=== PATIENT | male | born 1955 | race Caucasian/White ===

== ENCOUNTER 2022-01-30 01:53 | Emergency (ER) | payer MEDICARE, BC, SELFPAY ==
[2022-01-30 02:06] VITALS: BP 127/74; PULSE 68; TEMP 36.6; O2SAT 97
--- NOTE | 2022-01-31 16:05 | ED_ITS ---
HPI - Neck Pain/Injury General Chief Complaint: Shoulder Injury/Pain Stated Complaint: Pain in LT shoulder Time Seen by Provider: 01/30/22 02:36 History of Present Illness HPI Narrative: 66-year-old man presenting to the emergency department with complaint of ?can't take (the) pain?. Pain seems in particular in the left shoulder and then radiates all the way down his arm. He is numb in the tips of his fingers, all of them. He describes pain across his trapezius or upper back also then into his right fingers. At rest there is a general numbness and moving of the neck exacerbate symptoms. History he describes as 1 day had what sounds like an olecranon bursitis on the left elbow. Was placed in some compression and then subsequently he has developed this radiating pain. He has noted weakness in his left arm. He does take low-dose nightly gabapentin. He did take oxycodone tonight 5 mg and admits that he did go to sleep. He is frustrated with opiates as the just make him tired. He does not want to take them. He actually is hoping for some prednisone. Has an MRI coming up after the weekend. He says in the past prednisone has helped him somewhat. Does have what sounds like diabetic neuropathy also with some numb feet. Is anticoagulated with Coumadin and some not taking NSAIDs other than acetaminophen which says does nothing. He can obtain some relief if his neck is extended and tilted to the right a little bit. Seems overly started around the 11 of January of this year. Related Data Home Medications Medication Instructions Recorded Confirmed amlodipine 10 mg tablet 10 mg PO DAILY 01/13/22 01/30/22 atorvastatin 40 mg tablet 40 mg PO HS 01/13/22 01/30/22 cyclobenzaprine 10 mg tablet 10 mg PO PRN 01/13/22 01/13/22 fluticasone fur. 100 mcg-umeclid 1 inh inhalation DAILY 01/13/22 01/30/22 62.5 mcg-vilant 25 mcg inhalat.powder (Trelegy Ellipta) gabapentin 600 mg tablet 600 mg PO HS 01/13/22 01/30/22 glipizide 10 mg tablet, extended 10 mg PO DAILY 01/13/22 01/30/22 release 24 hr losartan 100 mg tablet 100 mg PO DAILY 01/13/22 01/30/22 metformin 1,000 mg tablet 1,000 mg PO BID 01/13/22 01/30/22 metoprolol succinate 100 mg 100 mg PO DAILY 01/13/22 01/30/22 tablet,extended release 24 hr tamsulosin 0.4 mg capsule 0.4 mg PO DAILY 01/13/22 01/30/22 warfarin 7.5 mg tablet 7.5 mg PO .COMPLEX 01/13/22 01/30/22 Allergies Allergy/AdvReac Type Severity Reaction Status Date / Time No Known Drug Allergies Allergy Verified 01/30/22 02:16 Review of Systems Status of ROS: Reports: 6 or more systems reviewed and unremarkable except as noted in History and below PFS PFS Social History Smoking Status: Former smoker How often do you have a drink containing alcohol: never How often do you have six or more drinks on one occasion: Never AUDIT-C Alcohol total score: 0 Non-prescribed substance use: denies use Exam Narrative: Exam Narrative: Pleasant. In his pajama bottoms. Clearly frustrated. Subjective reproduction of his symptoms with rotational movement of his neck. Subjective sensory loss generally in his left arm. Otherwise appears to be moving all extremities without difficulty. Good perfusion peripherally. Breathing easily. Cranial nerves 2-12 intact. Sore to palpation across the trapezial musculature left greater than right. No midline neck tenderness. Const: Documenting provider has reviewed patient's vital signs: yes Course Vital Signs Vital signs: Initial Vital Signs Temperature 97.9 F 01/30/22 02:06 Temperature Source Temporal Artery Scan 01/30/22 02:06 Pulse Rate 68 01/30/22 02:06 Blood Pressure 127/74 01/30/22 02:06 Blood Pressure Mean 91 01/30/22 02:06 Blood Pressure Position Sitting 01/30/22 02:06 Pulse Oximetry 97 01/30/22 02:06 Oxygen Delivery Method 01/30/22 02:06 Vital Signs Temperature 97.9 F 01/30/22 02:06 Pulse Rate 68 01/30/22 02:06 Blood Pressure 127/74 01/30/22 02:06 Pulse Oximetry 97 01/30/22 02:06 Oxygen Delivery Method 01/30/22 02:06 Temperature 97.9 F 01/30/22 02:06 Pulse Rate 68 01/30/22 02:06 Blood Pressure 127/74 01/30/22 02:06 Pulse Oximetry 97 01/30/22 02:06 Oxygen Delivery Method 01/30/22 02:06 MDM - Neck Pain/Injury MDM Narrative Medical decision making narrative: It sounds as though opiates to help him obtain what he is looking for, that is sleep. I can appreciate is a version however 2 opiates. Imaging pending shortly as outpatient. Discharge Plan Discharge Clinical Impression: Cervical radiculitis Patient Disposition: Home w/ Parent or Adult Condition: Stable Additional Instructions: Take the prednisone as 60 mg daily for 3 days, then 20 mg daily for 4 days. You are aware that it can raise your blood sugars. You might try taking half a tablet of your oxycodone in the future to take some of the more intense edge off. Perhaps a little rn clinical review opiate is the [place] that I am prescribing tonight. Any time you taking opiates consider taking a senna-containing product that day to keep the bowels moving. I know you do not like the way they make you feel, but you are here looking for help with sleep and you only took 1 tab of somewhat old oxycodone and managed to sleep which indicates to me that it relieved enough pain. Prescriptions: No Action Trelegy Ellipta 100-62.5-25 mcg blister with device 1 inh inhalation DAILY Label Comments: Inhale 1 Puff by mouth once daily. tamsulosin 0.4 mg capsule 0.4 mg PO DAILY metoprolol succinate 100 mg tablet extended release 24 hr 100 mg PO DAILY warfarin 7.5 mg tablet 7.5 mg PO .COMPLEX Label Comments: TAKE 1/2 TABLET BY MOUTH EVERY MONDAY AND MONDAY AND TAKE 1 TABLET ON ALL OTHER DAYS OR DIRECTED. Rx Instructions: 7.5 mg orally See patient comments; losartan 100 mg tablet 100 mg PO DAILY Label Comments: TAKE ONE TABLET BY MOUTH DAILY metformin 1,000 mg tablet 1,000 mg PO BID Label Comments: TAKE ONE TABLET BY MOUTH TWICE DAILY WITH MEALS amlodipine 10 mg tablet 10 mg PO DAILY Label Comments: TAKE ONE TABLET BY MOUTH DAILY glipizide 10 mg tablet extended release 24hr 10 mg PO DAILY Label Comments: TAKE ONE TABLET BY MOUTH ONCE DAILY BEFORE A MEAL atorvastatin 40 mg tablet 40 mg PO HS Label Comments: TAKE ONE TABLET BY MOUTH AT BEDTIME gabapentin 600 mg tablet 600 mg PO HS Label Comments: TAKE ONE TABLET BY MOUTH AT BEDTIME cyclobenzaprine 10 mg tablet 10 mg PO PRN Label Comments: TAKE 1 TABLET BY MOUTH AT BEDTIME NEEDED FOR MUSCLE SPASMS. MAY TAKE UP TO 3 TIMES DAILY NEEDED. Follow Up/Referrals: Arya Stone MD [Primary Care Provider] - Stand Alone Forms: [facility] Info Instructions
== END 2022-01-30 03:29 | disposition home or self-care (01) ==
LOC: ED 03:11
PROVIDERS: Emergency Provider Family Medicine; PCP Family Medicine
DX: M54.2 Cervicalgia (principal)
CPT/HCPCS: 99282; 99283

== ENCOUNTER 2022-06-07 10:38 | Outpatient (CLI) | payer MEDICARE, BC, SELFPAY ==
--- NOTE | 2022-06-07 11:00 | CRLHL7_ITS ---
For Patients: As a result of the Century Cures Act, medical imaging exams and procedure reports are released immediately into your electronic medical record. You may view this report before your referring provider. If you have questions, please contact your health care provider. Indication: DYSPNEA on exertion Technique: Routine noncontrast CT chest Please note that all CT scans at this facility use dose modulation, iterative reconstruction, and/or weight-based dosing when appropriate to reduce radiation dose to as low as reasonably achievable. Comparison: 06/06/2020 Findings: Finger ground-glass density has developed within the left upper lobe at the posterior lateral aspect. No congestive heart failure. No pleural effusion. Faint ground-glass densities have also developed within the right upper lobe inferiorly. Dense coronary artery calcifications are present. Dense mitral annular calcifications also noted. The upper abdomen is unremarkable. No aortic aneurysm. No hiatal hernia. Stable subcentimeter mediastinal lymph nodes. Old right-sided rib fractures. No acute fracture. Postop changes to the right shoulder. Stable 2 millimeter nodule left lower lobe, . Impression: Faint ground-glass densities within the left upper lobe and right upper lobe suggesting faint infiltrates. No evidence of pulmonary fibrosis or significant air trapping. Extensive calcifications of the coronary arteries. No evidence of CHF. Stable incidental 2 millimeter nodule left lower lobe. Please note that all CT scans at this facility use dose modulation, iterative reconstruction, and/or weight-based dosing when appropriate to reduce radiation dose to as low as reasonably achievable. Dictated by Paul Simons MD @ 06/07/2022 11:54:48 AM (Electronically Signed)
== END 2022-06-07 10:39 | disposition home or self-care (01) ==
LOC: CT 10:39
PROVIDERS: PCP Family Medicine; Visit Provider Internal Medicine Cardiovascular Disease
DX: R06.09 Other forms of dyspnea (principal); I25.10 Atherosclerotic heart disease of native coronary artery without angina pectoris; R91.8 Other nonspecific abnormal finding of lung field
CPT/HCPCS: 71250

== ENCOUNTER 2022-06-21 08:00 | Outpatient (RCR) | payer MEDICARE, BC, SELFPAY | END 2022-08-24 15:52 | disposition home or self-care (01) | PROVIDERS: PCP Family Medicine; Visit Provider Nurse Practitioner Family | DX: M48.02 Spinal stenosis, cervical region (principal); Z51.89 Encounter for other specified aftercare | CPT/HCPCS: 97110; 97112; 97140; 97162 ==

== ENCOUNTER 2022-06-27 21:21 | Emergency (ER) | payer MEDICARE, BC, SELFPAY ==
--- NOTE | 2022-06-27 21:26 | CRLHL7_ITS ---
For Patients: As a result of the Century Cures Act, medical imaging exams and procedure reports are released immediately into your electronic medical record. You may view this report before your referring provider. If you have questions, please contact your health care provider. Indication: Fall Technique: Two views right knee Comparison: None Findings: Bones: Alignment is normal. No fractures or bone lesions. Superior patellar enthesophyte. Joint spaces: Severe degenerative changes of the medial compartment, mild degenerative changes of the lateral and patellofemoral compartments. Soft tissues: Arteriosclerotic calcification. Impression: No acute fracture. Degenerative changes in the knee joint. Dictated by Missy Mitchell MD @ 06/27/2022 10:03:20 PM (Electronically Signed)
--- NOTE | 2022-06-27 21:26 | CRLHL7_ITS ---
For Patients: As a result of the Century Cures Act, medical imaging exams and procedure reports are released immediately into your electronic medical record. You may view this report before your referring provider. If you have questions, please contact your health care provider. Indication: Fall Technique: Three views right ankle Comparison: Nine Findings: Bones: Minimally displaced, obliquely oriented fracture through the distal diaphysis of the right fibula. The medial clear space measure 6.4. Minimally displaced posterior malleolus fracture. Joint spaces: Unremarkable. Soft tissues: Arteriosclerotic calcifications.. Impression: Minimally displaced posterior malleolus fracture. Minimally displaced fracture of the distal diaphysis of the right fibula. Mild widening of the medial clear space concerning for ligamentous injury Dictated by Missy Mitchell MD @ 06/27/2022 10:01:16 PM (Electronically Signed)
[2022-06-27 21:28] VITALS: BP 158/91; PULSE 89; RESP 18; TEMP 36.7; O2SAT 99; BMI 31.3
--- NOTE | 2022-06-27 21:39 | ED_ITS ---
HPI - Extremity Injury (Lower) General Chief Complaint: Extremity Pain/Injury, Lower Stated Complaint: Rt Leg Injury,can't walk on it Time Seen by Provider: 06/27/22 21:37 History of Present Illness HPI Narrative: This 67-year-old male comes in with an injury to his right lower extremity. He fell in the kitchen and states that since then he has not been able to put weight on that right leg. He reports pain in his right ankle and right knee. He has swelling and some bruising in his right ankle. He denies any other injury. He did not hit his head or lose consciousness. Related Data Home Medications Medication Instructions Recorded Confirmed amlodipine 10 mg tablet 10 mg PO DAILY 01/13/22 06/27/22 atorvastatin 40 mg tablet 40 mg PO HS 01/13/22 06/27/22 fluticasone fur. 100 mcg-umeclid 1 inh inhalation DAILY 01/13/22 06/27/22 62.5 mcg-vilant 25 mcg inhalat.powder (Trelegy Ellipta) gabapentin 600 mg tablet 600 mg PO HS 01/13/22 06/27/22 glipizide 10 mg tablet, extended 10 mg PO DAILY 01/13/22 06/27/22 release 24 hr losartan 100 mg tablet 100 mg PO DAILY 01/13/22 06/27/22 metformin 1,000 mg tablet 1,000 mg PO BID 01/13/22 06/27/22 metoprolol succinate 100 mg 100 mg PO DAILY 01/13/22 06/27/22 tablet,extended release 24 hr tamsulosin 0.4 mg capsule 0.4 mg PO DAILY 01/13/22 06/27/22 warfarin 7.5 mg tablet 7.5 mg PO .COMPLEX 01/13/22 06/27/22 albuterol sulfate 90 mcg/actuation 1 - 2 inh inhalation Q6H PRN 06/27/22 06/27/22 aerosol inhaler ipratropium 0.5 mg-albuterol 3 mg 3 ml inhalation Q6H 06/27/22 06/27/22 (2.5 mg base)/3 mL nebulization soln ipratropium 0.5 mg-albuterol 3 mg 3 ml inhalation Q6H PRN 06/27/22 06/27/22 (2.5 mg base)/3 mL nebulization soln Allergies Allergy/AdvReac Type Severity Reaction Status Date / Time No Known Drug Allergies Allergy Verified 01/30/22 02:16 Review of Systems Status of ROS: Reports: 10 or more systems reviewed and unremarkable except as noted in History and below Narrative: Constitutional: No fevers, no weight gain or loss. Eyes: No discharge. No vision changes. HENT: No congestion, no sore throat, no ear pain. Cardiovascular: No chest pain, no palpitations. Respiratory: No shortness of breath, no wheezes, no cough. Gastrointestinal: No abdominal pain, no vomiting, no diarrhea. Genitourinary: No dysuria, no hematuria. Musculoskeletal: Right knee and ankle pain as described above. Skin: No rashes, no pruritis. Neurological: No dizziness, weakness, sensory change, speech change. Endo/Heme/Allergies: No bruising or bleeding. No polydipsia. Pysch: no suicidality, no anxiety, no insomnia. All other systems reviewed and are negative. [facility] Medical History (Updated 06/27/22 @ 22:29 by Robert Mcgill MD) Anticoagulation goal of INR 2 to 3 ASHD (arteriosclerotic heart disease) Bicuspid aortic valve Dyslipidemia Essential (primary) hypertension Hypermetropia Impotence, organic Liver cyst Nonrheumatic aortic (valve) stenosis PAOLO (obstructive sleep apnea) Paroxysmal atrial fibrillation Partial tear of subscapularis tendon Presbyopia Psoriasis Pulmonary emphysema Regular astigmatism Rotator cuff tear Rupture of left long head biceps tendon Stenosis of cervical spine Systolic murmur Type 2 diabetes mellitus Unspecified rotator cuff tear or rupture of left shoulder, not specified as traumatic Social History Smoking Status: Former smoker How often do you have a drink containing alcohol: never How often do you have six or more drinks on one occasion: Never AUDIT-C Alcohol total score: 0 Non-prescribed substance use: denies use Exam Narrative: Exam Narrative: Constitutional: Well-developed, well-nourished, no acute distress. HEENT: Normocephalic, atraumatic. Neck: Normal range of motion. Nontender. Supple. Heart: Intact distal pulses. Lungs: No chest discomfort. No wheezes, rhonchi, or rales. Abdomen: Nontender. Back: Normal range of motion. Extremities: Diffuse pain in the right knee. No joint effusion. No external sign of injury. Right ankle has diffuse swelling with mild bruising. There is tenderness when palpating the medial and lateral malleolus. Skin: Intact. No rash. Warm. No erythema or pallor. Neurologic: No altered sensation. No weakness. Alert and oriented. Psychiatric: No suicidality. No anxiety or depression. No insomnia. Nursing notes and vitals signs are reviewed. Const: Vital Signs, click to edit/add: Vital Signs - 24 hr 06/27/22 21:28 Temperature 98.0 F Pulse Rate [Right Pulse Oximeter] 89 Respiratory Rate 18 Blood Pressure [Ri ght Upper Arm] 158/91 H Pulse Oximetry 99 Oxygen Delivery Me thod Room Air Course Vital Signs Vital signs: Initial Vital Signs Temperature 98.0 F 06/27/22 21:28 Temperature Source Temporal Artery Scan 06/27/22 21:28 Pulse Rate 89 06/27/22 21:28 Respiratory Rate 18 06/27/22 21:28 Blood Pressure 158/91 H 06/27/22 21:28 Blood Pressure Mean 113 06/27/22 21:28 Blood Pressure Position Sitting 06/27/22 21:28 Pulse Oximetry 99 06/27/22 21:28 Oxygen Delivery Method 06/27/22 21:28 Vital Signs Temperature 98.0 F 06/27/22 21:28 Pulse Rate 89 06/27/22 21:28 Respiratory Rate 18 06/27/22 21:28 Blood Pressure 158/91 H 06/27/22 21:28 Pulse Oximetry 99 06/27/22 21:28 Oxygen Delivery Method 06/27/22 21:28 Temperature 98.0 F 06/27/22 21:28 Pulse Rate 89 06/27/22 21:28 Respiratory Rate 18 06/27/22 21:28 Blood Pressure 158/91 H 06/27/22 21:28 Pulse Oximetry 99 06/27/22 21:28 Oxygen Delivery Method 06/27/22 21:28 MDM - Extremity Injury (Lower) MDM Narrative Medical decision making narrative: This patient comes in with injury to his right lower extremity. X-ray images of his knee shows no acute findings. The right ankle x-rays show evidence of a bimalleolar fracture with minimal displacement. There is some suspicion of ligamentous injury with a subtle widening of the syndesmosis. The patient received an intramuscular injection of morphine 10 mg. He was placed in a Tobi Shipley type splint using Ortho Glass material. He received crutches and arrangements are made for follow-up appointment with orthopedic clinic. He is instructed to be nonweightbearing on that right lower extremity. He received an [employer] prescription for [place]. Imaging Data XR R Knee: Radiologist's impression: Minimally displaced posterior malleolus fracture. Minimally displaced fracture of the distal diaphysis of the right fibula. XR R Ankle: Radiologist's impression: Minimally displaced posterior malleolus fracture. Minimally displaced fracture of the distal diaphysis of the right fibula. Mild widening of the medial clear space concerning for ligamentous injury Discharge Plan Discharge Clinical Impression: Bimalleolar ankle fracture Patient Disposition: Home w/ Parent or Adult Condition: Unchanged Additional Instructions: Wear splint and use crutches for ambulating. Take medication as needed and indicated. Follow up with orthopedic clinic as scheduled. Prescriptions: No Action Trelegy Ellipta 100-62.5-25 mcg blister with device 1 inh inhalation DAILY Label Comments: Inhale 1 Puff by mouth once daily. tamsulosin 0.4 mg capsule 0.4 mg PO DAILY metoprolol succinate 100 mg tablet extended release 24 hr 100 mg PO DAILY warfarin 7.5 mg tablet 7.5 mg PO .COMPLEX Label Comments: TAKE 1/2 TABLET BY MOUTH EVERY MONDAY AND MONDAY AND TAKE 1 TABLET ON ALL OTHER DAYS OR DIRECTED. Rx Instructions: 7.5 mg orally See patient comments; losartan 100 mg tablet 100 mg PO DAILY Label Comments: TAKE ONE TABLET BY MOUTH DAILY metformin 1,000 mg tablet 1,000 mg PO BID Label Comments: TAKE ONE TABLET BY MOUTH TWICE DAILY WITH MEALS amlodipine 10 mg tablet 10 mg PO DAILY Label Comments: TAKE ONE TABLET BY MOUTH DAILY glipizide 10 mg tablet extended release 24hr 10 mg PO DAILY Label Comments: TAKE ONE TABLET BY MOUTH ONCE DAILY BEFORE A MEAL atorvastatin 40 mg tablet 40 mg PO HS Label Comments: TAKE ONE TABLET BY MOUTH AT BEDTIME gabapentin 600 mg tablet 600 mg PO HS Label Comments: TAKE ONE TABLET BY MOUTH AT BEDTIME albuterol sulfate 90 mcg/actuation HFA aerosol inhaler 1 - 2 inh INHALATION Q6H PRN Label Comments: INHALE 1-2 PUFFS BY MOUTH EVERY 6 HOURS IF NEEDED FOR SHORTNESS OF BREATH OR WHEEZING. USE FIRST CHOICE FOR WHEEZING AND SECOND CHOICE FO ipratropium-albuterol 0.5 mg-3 mg(2.5 mg base)/3 mL solution for nebulization 3 ml inhalation Q6H ipratropium-albuterol 0.5 mg-3 mg(2.5 mg base)/3 mL solution for nebulization 3 ml inhalation Q6H PRN Follow Up/Referrals: Dexter Lofton MD [Primary Care Provider] - Stand Alone Forms: [employer] Info Instructions
[2022-06-27 22:15] VITALS: PULSE 85; RESP 16; O2SAT 98
[2022-06-27] MEDS: MORPHINE 10 MG/ML inj IM (22:16)
[2022-06-27 22:43] VITALS: BP 149/87; PULSE 81; RESP 16
== END 2022-06-27 22:48 | disposition home or self-care (01) ==
PROVIDERS: Emergency Provider Emergency Medicine Emergency Medical Services; PCP Family Medicine
DX: S82.841A Displaced bimalleolar fracture of right lower leg, initial encounter for closed fracture (principal)
CPT/HCPCS: 29515; 73560; 73610; 96372; 99284; 99285; J2270

== ENCOUNTER 2022-06-29 15:14 | Outpatient (CLI) | payer MEDICARE, BC, SELFPAY ==
[2022-06-29 17:30] LABS: Chloride* 105 mmol/L (96-114); Potassium* 4.5 mmol/L (3.6-5.1); Sodium* 138 mmol/L (135-149)
[2022-06-29 17:33] LABS: Blood Urea Nitrogen* 22 mg/dL (7-30); Carbon Dioxide* 27 mmol/L (20-32); Creatinine* 0.9 mg/dL (0.5-1.5); Estimated Glomerular Filt Rate 94 ml/min
[2022-06-29 17:34] LABS: Calcium* 9.1 mg/dL (8.4-10.6); Glucose* 127 mg/dL (60-115)
== END 2022-06-29 15:15 | disposition home or self-care (01) ==
LOC: NFLDREF 15:16
PROVIDERS: PCP Family Medicine; Visit Provider Family Medicine
DX: Z01.818 Encounter for other preprocedural examination (principal)
CPT/HCPCS: 80048

== ENCOUNTER 2022-07-01 08:52 | Day surgery (SDC) | payer MEDICARE, BC, SELFPAY ==
[2022-07-01] VITALS (14 sets, daily range): BP systolic 114–147; BP diastolic 61–79; PULSE 60–76; RESP 12–16; TEMP 36.8–37.5; O2SAT 90–97; BMI 31.3
[2022-07-01] MEDS: LACTATED RINGERS 1000 ML 1,000 ML 100 ML IV (11:25)
[2022-07-01] MEDS: SODIUM CHLORIDE 0.9 % (FLUSH) 10 ML SYRINGE IVF (12:29)
[2022-07-01] MEDS: fentaNYL 100 MCG/2 ML inj IVP (12:39)
--- NOTE | 2022-07-01 13:00 | CRLHL7_ITS ---
For Patients: As a result of the Cures Act, medical imaging exams and procedure reports are released immediately into your electronic medical record. You may view this report before your referring provider. If you have questions, please contact your health care provider. Indication: Intraop right ankle ORIF, IM nailing Technique: Four fluoroscopic images of the right ankle. Fluoroscopic time 2 minutes 36 seconds. IMPRESSION: Fluoroscopic guidance for open reduction internal fixation of distal fibular fracture and syndesmotic fixation. Dictated by Paul Simons MD @ 07/01/2022 3:58:29 PM (Electronically Signed)
[2022-07-01] MEDS: MIDAZOLAM HCL 1 MG/ML inj IVP (13:39)
--- NOTE | 2022-07-01 13:40 | SUR.PREOP ---
Addendum entered by Mari Noland RN 07/01/22 13:46: Timeout at 1338 Original Note: TIME?OUT:?1238 PT/RN/MDA?VERIFICATION?OF?SURGICAL?SITE,?PROCEDURE,?AND?CONSENT OBTAINED?PRIOR?TO?INVASIVE?PROCEDURE.
[2022-07-01] MEDS: CEFAZOLIN 2 GM INJ IVP (14:01)
--- NOTE | 2022-07-01 14:32 | W.PM.NB ---
Nerve Block Nerve Block Time Seen by Provider: 13:38 Date Seen: 07/01/22 Type of block requested by surgeon for post-operative analgesia: popliteal Side: right Time out performed: Yes Verification of patient name: Yes Verification of date of : Yes Site marking: site marked Name of person performing procedure: Jesse Continuous monitoring Was continuous monitoring of O2 sat, B/P, costume mistress, recorded every 15 minutes?: Yes Procedure Checklist: sterile prep, needles and gloves Ultrasound guided. Images saved: Yes Medications given in 5ml increments after negative aspiration: Ropivicaine %: 0.5 mL: 20 Needle gauge: 22 Patient tolerated procedure well: Yes Additional comments: Needle noted adjacent to nerve Block Charges Block Charge (with Pro Fee): Sciatic Nerve Use of Ultrasound Machine for Block: Yes- US Guidance/pain block
--- NOTE | 2022-07-01 14:33 | W.PM.NB ---
Nerve Block Nerve Block Time Seen by Provider: 13:38 Date Seen: 07/01/22 Type of block requested by surgeon for post-operative analgesia: adductor canal Side: right Time out performed: Yes Verification of patient name: Yes Verification of date of : Yes Site marking: site marked Name of person performing procedure: Jesse Continuous monitoring Was continuous monitoring of O2 sat, B/P, linoleum floor layer, recorded every 15 minutes?: Yes Procedure Checklist: sterile prep, needles and gloves Ultrasound guided. Images saved: Yes Medications given in 5ml increments after negative aspiration: Ropivicaine %: 0.5 mL: 20 Needle gauge: 20 Decadron (mg): 10 Precedex (mcg): 25 Patient tolerated procedure well: Yes Additional comments: Needle noted adjacent to nerve Block Charges Block Charge (with Pro Fee): Femoral Nerve Use of Ultrasound Machine for Block: Yes- US Guidance/pain block
--- NOTE | 2022-07-01 15:39 | PM.ORPRC ---
Procedure Note Date of procedure: 07/01/22 Procedure: PREOPERATIVE DIAGNOSIS: Right ankle low Regalado C fracture POSTOPERATIVE DIAGNOSIS: Right ankle low Regalado C fracture NAME OF OPERATION: ORIF SURGEON: Jeffy Wolf MD TEST MAN: Juanita Mejias PA-C ANESTHESIA: General plus popliteal block ESTIMATED BLOOD LOSS: 0 mL COMPLICATIONS: None for SPECIMENS: None DRAINS: None PREOPERATIVE ANTIBIOTICS: Ancef 2 g INDICATIONS: The patient is a 67-year-old diabetic who sustained a right ankle fracture. ORIF was recommended. The risks, benefits and expected outcomes were discussed in detail. These included but were not limited to: Infection, bleeding, injury to blood vessel or nerve, venous thromboembolism. All questions were answered to their satisfaction. Use of an academic affairs assistant was necessary throughout the case for patient positioning and safety, soft tissue retraction and closure. PROCEDURE: A popliteal block was placed by anesthesia. General anesthesia was administered. The lower extremity was prepped and draped in the usual sterile fashion. A percutaneous incision was made over the anterior and lateral aspect of the fibula, at the fracture site. Two additional percutaneous incisions were placed over the anterior and posterior aspect of the lateral malleolus. A Regalado reduction clamp was placed on the distal fragment. This allowed us to place traction and regain length. We then placed a [id number] reduction clamp at the fracture site and reduced the fracture anatomically. A guide pin was placed in the center of the distal fragment of the fibula, percutaneously. Its placement was confirmed with the image intensifier in multiple views. A stab incision was made around the guide pin. The opening Reamer was used. The 3.2 mm and 4.0 mm reamer were used in the proximal fragment. We placed the Arthrex 3.8 mm x 180 mm intramedullary nail. The talons were deployed. We placed 2 screws in the distal fragment. Next we made drill holes for the syndesmotic screws. These were done through nail wheel and pinion inspector guide. A 3.5 mm x 60 mm and a 3.5 mm x 56 mm, 4 cortical syndesmotic screw were placed. The wheel and pinion inspector was removed, the end cap was placed. This provides an anatomic reduction of the fibula with excellent fixation. Medial mortise and syndesmotic relationships are anatomic. Implants were imaged in the AP, mortise and lateral views and were felt to be well placed with an excellent reduction. The talus is nicely reduced under the tibial plafond. The wounds were irrigated with normal saline. The academic affairs assistant closed the skin with a 4-0 nylon in a subcuticular fashion. Glue was used to seal the skin. The academic affairs assistant placed a dry dressing and short leg Tobi Shipley splint. Sponge and needle counts were correct x 2. The patient tolerated the procedure well. There were no apparent complications. They were carefully transferred to the hospital bed and taken to the postanesthesia care unit in satisfactory condition. PLAN: The patient will be discharged to home. They will remain strict nonweightbearing on the lower extremity. They will continue to work on ice and elevation. They will follow up in the office in 2 weeks for a wound check and three views of the ankle out of the splint, prior to being seen, in preparation for cast immobilization, nonweightbearing for another 4 weeks. At the 6 week postoperative rahat we will place him in a cam walker and allow him to weightbear as tolerates for another 6 weeks in the boot.
--- NOTE | 2022-07-01 15:45 | W.ANESCHARGE ---
Anesthesia Charges Start Date/Time Anesthesia Start Date: 07/01/22 Anesthesia Start Time: 13:47 Stop Date/Time Anesthesia Stop Date: 07/01/22 Anesthesia Stop Time: 16:07 Summary Emergency: No
--- NOTE | 2022-07-01 16:08 | W.ANESCHARGE ---
Anesthesia Charges Start Date/Time Anesthesia Start Date: 07/01/22 Anesthesia Start Time: 13:47 Stop Date/Time Anesthesia Stop Date: 07/01/22 Anesthesia Stop Time: 16:07 Summary Emergency: No
== END 2022-07-01 17:36 | disposition home or self-care (01) ==
PROVIDERS: PCP Family Medicine; Visit Provider Orthopaedic Surgery
PROC: (CPT 27792; principal; 2022-07-01 13:00)
DX: S82.891A Other fracture of right lower leg, initial encounter for closed fracture (principal)
CPT/HCPCS: 27792; 01480; 64445; 64447; 73600; 76000; 76942; 82962; 97116; 97161; A4580; C1713; J0330; J0690; J2250; J2405; J2704; J2795; J3010; J7120

== ENCOUNTER 2023-01-12 08:54 | Outpatient (CLI) | payer MEDICARE, BC, SELFPAY | END 2023-01-12 08:55 | disposition home or self-care (01) | LOC: NFLDREF 22:42 | PROVIDERS: PCP Family Medicine; Referring Provider Family Medicine; Visit Provider Physician Assistant Medical | DX: Z00.00 Encounter for general adult medical examination without abnormal findings (principal); E11.9 Type 2 diabetes mellitus without complications; I10 Essential (primary) hypertension; Z79.01 Long term (current) use of anticoagulants; Z13.6 Encounter for screening for cardiovascular disorders | CPT/HCPCS: 80053; 80061; 82043; 82570 ==

== ENCOUNTER 2023-04-12 14:41 | Outpatient (CLI) | payer MEDICARE, BC, SELFPAY | END 2023-04-12 14:42 | disposition home or self-care (01) | PROVIDERS: PCP Physician Assistant Medical; Visit Provider Physician Assistant Medical | DX: Z01.818 Encounter for other preprocedural examination (principal); D64.9 Anemia, unspecified; E78.5 Hyperlipidemia, unspecified; E11.9 Type 2 diabetes mellitus without complications; I35.0 Nonrheumatic aortic (valve) stenosis; Z12.5 Encounter for screening for malignant neoplasm of prostate; Z13.21 Encounter for screening for nutritional disorder; I48.0 Paroxysmal atrial fibrillation; Z79.01 Long term (current) use of anticoagulants; R42 Dizziness and giddiness; I11.0 Hypertensive heart disease with heart failure; I50.22 Chronic systolic (congestive) heart failure | CPT/HCPCS: 82607; 83540; 83550; 83880 ==

== ENCOUNTER 2023-04-14 07:38 | Outpatient (CLI) | payer MEDICARE, BC, SELFPAY ==
--- OUTSIDE RECORDS SUMMARY | 2023-04-14 07:41 | XMS_ITS | Continuity of Care Document ---
Author Name Unknown Organization [facility] Address [address] [place] [address] Phone Care Team Providers Care Electrical Tech Name Role Phone Sumit Castillo MD Unavailable Unavailable Procedures Procedure Date Office/outpatient visit,est, low 2007 X-ray exam lower spine 2-3 views 2007 Office/outpatient visit,est, low 2006 Office/outpatient visit,est, low 2006 X-ray exam lower spine 2-3 views 2006 Postop followup visit Lumbar spine fusion, posterolateral Spine fusion, each add'lvertebra 2006 Decompress lumbar spinalcord seg 2006 Remove lumbar spine lamina, 1 seg Insert spine seg fix, post, 3-6 seg Aspiration, bone marrow Allograft, spine surg, morselized PA Assist Lumbar spine fusion, posterola teral PA Assist Spine fusion, each add'lverteb ra PA Assist Decompress lumbar spinalcord s eg PA Assist Remove lumbar spine lamina, 1 seg PA Assist Insert spine seg fix, post, 3- 6 seg Office consultation, moderate 6 Advance Directives Directive Yes / No Effective Date File Name No Information Encounters Encounter Description Practice Location Reason(s) For Visit Diagnoses Date Provider Providers Copied on Encounter [facility], [address], [place], [address], [place] tel:[phone] [facility] [place] No Information 8 Jonathan Arana. [facility], [address] [place] [address] [address], [place], [place], [id number] , [place]. tel:[phone] Office/outpat ient visit,est, low Z [facility], [address] [place], [place] [address], [place], [address], [place] tel:[phone] [facility] - [place] No Information Apr-1 0-200 8 Mehbod Amir. [facility], [address], [place], [place], [id number] , [place]. [phone] Referring Provider: Mckinley Townsend [address], [address]. tel:[phone] Office/outpat ient visit,est, low [facility], [address] [place], [place] [address]ite [facility], [place], [place], [facility], [place] tel:[phone] [facility] - [place] No Information Jan-0 9-200 7 Mehbod Amir. [facility], [address] [place] [address] [address], [place], [place], [id number] , [place]. tel:[phone] Referring Provider: Mckinley Townsend [address], [address]. tel:[phone] Office/outpat ient visit,est, low [facility], [address] [place] [address], [place], [place], [facility], [place] tel:[phone] [facility] No Information Bong-2 8-200 7 Mehbod Amir. [facility], [address], [place], [place], [id number] , [place]. tel:[phone] Referring Provider: Mckinley Townsend [address], [address]. tel:[phone] [facility], [address] [place], [place] [address] [place] [address], [facility], [place] tel:[phone] [facility] - [place] No Information October-1 0-200 7 Mehbod Amir. [facility], [address], [place], [place], [id number] , [place]. tel:[phone] Referring Provider: Mckinley Townsend [address], [address]. tel:[phone] [facility], [address], [place], [address], [place] tel:[phone] [facility] No Information 200 7 Mehbod Amir. [facility], [address] [place] [address] [address], [place], [place], [id number] , [place]. tel:[phone] Referring Provider: Mckinley Townsend [address], [address]. tel:[phone] Office consultation, moderate Z [facility], [address] [address], [place], [address], [place] tel:[phone] [facility] - [place] No Information 200 6 Mehbod Amir. [facility], [address] [place] [address] [address], [place], [place], [id number] , [place]. tel:[phone] Referring Provider: Mckinley Townsend [address], [address]. tel:[phone] Family History Family Member Type Diagnosis Age At Onset No Information Payers Payer name Insurance type Covered green party ID Authorjaja avilajaylin(s) [employer] Ins AM [id number] [employer] [id number] Social History Type Description Quantity Date Captured Comments Sex Male Smoking Status No Information Chief Complaint And Reason For Visit No Information Reason For Referral Reason For Referral No Information History Of Present Illness Encounter Date Complaint History Of Prese nt Illness No Information Functional Status Date Functional Assessmen t No Information Instructions Date Instruction Additional Infor mation No Information Assessments Type Assessment Date No Information Patient Care Teams Name Effective Dates (start - stop) Status Members No Information
== END 2023-04-14 07:39 | disposition home or self-care (01) ==
LOC: RAD 07:39
PROVIDERS: PCP Physician Assistant Medical; Visit Provider Physician Assistant Medical
DX: R01.1 Cardiac murmur, unspecified (principal); I51.7 Cardiomegaly; I05.0 Rheumatic mitral stenosis; I34.0 Nonrheumatic mitral (valve) insufficiency
CPT/HCPCS: 93306

== ENCOUNTER 2023-04-21 09:02 | Outpatient (CLI) | payer MEDICARE, BC, SELFPAY ==
--- OUTSIDE RECORDS SUMMARY | 2023-04-21 09:05 | XMS_ITS | Continuity of Care Document ---
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 [facility], [address] [place] [address] [address], [place], [place], [id number] , [place]. tel:[phone] Office/outpat ient visit,est, low Z [facility], [address] [place], [place] [address], [place], [address], [place] tel:[phone] [facility] No Information Apr-1 0-200 8 Mehbod Amir. [facility], [address], [place], [place], [id number] , [place]. [phone] Referring Provider: Mckinley Townsend [address], [address]. tel:[phone] Office/outpat ient visit,est, low Z [facility], [address] [place], [place] [address]ite [facility], [place], [place], [facility], [place] tel:[phone] [facility] No Information Jan-0 9-200 7 Mehbod Amir. [facility], [address] [place] [address] [address], [place], [place], [id number] , [place]. tel:[phone] Referring Provider: Mckinley Townsend [address], [address]. tel:[phone] Office/outpat ient visit,est, low Z [facility], [address] [place] [address], [place], [place], [facility], [place] tel:[phone] [facility] No Information Bong-2 8-200 7 Mehbod Amir. [facility], [address], [place], [place], [id number] , [place]. tel:[phone] Referring Provider: Mckinley Townsend [address], [address]. tel:[phone] Z [facility], [address] [place], [place] [address]ite [address] [place] [address], [facility], [place] tel:[phone] [facility] No Information October-1 0-200 7 Mehbod Amir. [facility], [address], [place], [place], [id number] , [place]. tel:[phone] Referring Provider: Mckinley Townsend [address], [address]. tel:[phone] Z [facility], [address], [place], [address], [place] tel:[phone] [facility] No Information 200 7 Mehbod Amir. [facility], [address] [place] [address] [address], [place], [place], [id number] , [place]. tel:[phone] Referring Provider: Mckinley Townsend [address], [address]. tel:[phone] Office consultation, moderate Z [facility], [address] [address], [place], [address], [place] tel:[phone] [facility] No Information 200 6 Mehbod Amir. [facility], [address] [place] [address] [address], [place], [place], [id number] , [place]. tel:[phone] Referring Provider: Mckinley Townsend [address], [address]. tel:[phone] Family History Family Member Type Diagnosis Age At Onset No Information Payers Payer name Insurance type Covered alliance party ID Authorjaja avilajaylin(s) [employer] AM [id number] 3 [employer] [id number] Social History Type Description Quantity Date Captured [...]
[2023-04-21 09:55] LABS: Creatinine* 0.6 mg/dL (0.5-1.5); Estimated Glomerular Filt Rate 105 ml/min
--- NOTE | 2023-04-21 10:00 | CRLHL7_ITS ---
For Patients: As a result of the Century Cures Act, medical imaging exams and procedure reports are released immediately into your electronic medical record. You may view this report before your referring provider. If you have questions, please contact your health care provider. Indication: Lung mass Technique: Post contrast CT chest. 75 cc Isovue 370 intravenous contrast. Please note that all CT scans at this facility use dose modulation, iterative reconstruction, and/or weight-based dosing when appropriate to reduce radiation dose to as low as reasonably achievable. Comparison: 11/24/2022, 06/07/2022 Findings: Masslike density has developed within the posterior segment of the left upper lobe measuring 3.0 cm. No pleural effusion. No pulmonary edema. Mild scarring within the medial right lower lobe. Stable tiny nodular density within the right upper lobe, 09/01. Persistent faint tree-in-bud opacities within the right perihilar lung involving the right upper lobe. Mildly prominent mediastinal and bilateral hilar lymph nodes are present measuring up to 1 cm. No enlarged axillary lymph nodes. Chronic right rib fracture deformities are present. Ankylosis thoracic spine. Postop changes lower cervical spine. Chronic deformity of the upper sternum. Impression: Interval development of a masslike parenchymal density within the posterior segment of the left upper lobe measuring 3 cm. In the absence of infectious signs/symptoms this is suspicious for malignancy. CT-PET recommended. Please note that all CT scans at this facility use dose modulation, iterative reconstruction, and/or weight-based dosing when appropriate to reduce radiation dose to as low as reasonably achievable. Dictated by Paul Simons MD @ 04/21/2023 11:35:17 AM (Electronically Signed)
== END 2023-04-21 09:03 | disposition home or self-care (01) ==
LOC: CT 09:03
PROVIDERS: PCP Physician Assistant Medical; Visit Provider Physician Assistant Medical
DX: R91.8 Other nonspecific abnormal finding of lung field (principal)
CPT/HCPCS: 36415; 71260; 82565; 84153; Q9967

== ENCOUNTER 2023-06-08 09:00 | Outpatient (RCR) | payer MEDICARE, BC, SELFPAY ==
--- NOTE | 2022-08-26 12:02 | PT.OPE ---
PT [place] Outpatient Eval PT [facility] Outpatient Eval Start: 08/26/22 09:45 Freq: Status: Active Protocol: Document 08/26/22 09:47 LSL (Rec: 08/26/22 09:49 LSL [id number]) E-signed By Angie Peoples PT Physical Therapy Outpatient Evaluation Insurance Information Recert Due Date 11/11/22 Insurance Name Medicare B,[employer] Insurance Information/Comments BCBS supplement Medical Diagnosis s/p R traumatic Regalado type C ankle fracture with ORIF Treating Diagnosis weakness, pain, impaired balance and gait, impaired ROM Referring MD Wolf Subjective Subjective Pt. slipped on a plastic rake and broke his ankle. Neck is okay, the finger tips are still numb but getting better. He had a surgical repair. My medial knee is hurting the worst. Mild ache in the ankle and it swells up. Pt. is suppose to be in a CAM boot for 6 weeks, but came in today without boot since he didn't want to wear it in since he was just going to be taking it off. Driving is okay and I plowed the snow the past couple times and it went okay. Pain Comments knee 10/19 ankle 07/22 Date of Last Physician Visit 08/15/22 Date of Next Physician Visit 09/26/22 Current Work Status Retired Preferred Name Cecil Precautions Treatment Precautions/Contraindications recent cervical fusion Weight Bearing Status Weight Bear as Tolerated Therapy Limitations/Systems Review Not Limited Objective Range of Motion AROM R L DF -2 9 PF 35 41 inv 16 12 evs 8 11 varus 5 3 Strength Ankle - DF 4+/5, inversion 4+/ 5, eversion 4-/5, PF 1/5 Toes - 4/5 Knee - quads 4/5 ,HS 4+/5 Swelling R L Figure 8 56.5 cm 53.5 cm pitting edema Balance & Gait severely antalgic with lack of foot rocker no boot and no AD Other/Pertinent Objective calf R 7.5 above mid malleolar 32 cm L 7.5 above mid malleolar 34 cm Assessment Assessment/Impression Pt. is a 67 y/o male who presents with severely antalgic gait and moderately impaired ROM and strength s/p R ankle fracture with ORIF. He was not wearing his boot or using an AD today when he came in. His gait was significantly improved when he used a SPC in the clinic so encouraged him to utlize one at home even in his boot. He is aware he was supposed to wear his boot but figured he would be taking it off once in the clinic. He will benefit from PT to restore ROM, strength, balance and his ability to walk using therex, NM re-ed, manual therapy with modalities prn. Primary Functional Limitations walking, stairs, climbing, balance Plan of Care Rehabilitation Potential Good Physical Therapy Goals SHORT TERM GOALS: (3 weeks) 1. Minimally antalgic gait with SPC for 200 feet. 2. Pt. to have 3/5 or greater plantar flexor strength to assist in gait and stairs. 3. Pt. to have DF to neutral to assist in gait. 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 Coordination/Communication With Referral Source Treatment Plan/Direct Interventions Electrical Stimulation,Gait Training,Ice/Cold/ Vasopneumatic,Joint Mobilization,Manual Therapy, Neuromuscular Re-ed,Self-Care/ Home Management,Therapeutic Exercises Frequency/Duration 2x/week 6 weeks Patient Will Be Discharged From Therapy Completion of LTG(s) Discharge Plan Comments Ongoing pOC to consist of therex, NM re-ed, manual therapy, modalities prn, gait training Evaluation Billing Untimed Code Treatment Minutes 30 Complexity Low Certification Information Initial Certification Date 08/26/22 Ending Certification Date 11/11/22 Provider Signature Shows Agreement With POC & Medical Necessity Physician Signature & Date Requested Please Sign/Date Here Physician Comment/Change : Physician NPI Number #
--- NOTE | 2022-11-10 11:14 | PT.OPDN ---
PT [facility] Outpatient Daily Note PT [facility] Outpatient Daily Note Start: 08/26/22 09:45 Freq: Status: Active Protocol: Document 11/10/22 09:05 LSL (Rec: 11/10/22 10:00 LSL [id number]) E-signed By Angie Peoples, PT PT OP Daily Progress Note Visit Information Note Type Daily Note,Recert/Progress Note,Re-Evaluation Visit Number 13 Insurance Authorized Visits TBD Physician Authorized Visits eval & treat Insurance Information Recert Due Date 11/11/22 Insurance Name Medicare B,Blue Cross/Blue Shield Insurance Information/Comments BCBS supplement Medical Diagnosis s/p R traumatic Regalado type C ankle fracture with ORIF with hardware removal 10/20/22 Treating Diagnosis weakness, pain, impaired balance and gait, impaired ROM Referring MD Wolf Subjective Subjective Pt. reports his ankle is doing okay, it's a little sore but really unchanged since before the hardware removal. My knee is really bugging and hurting me and they told me they couldn't do anything before December. He told me I need a new knee. Balance remains challenged. Pain Comments ankle best 0/10, worst 2/10 knee best 4/10, worst 6/10 Preferred Name Cecil Precautions Treatment Precautions/Contraindications recent cervical fusion Weight Bearing Status Weight Bear as Tolerated Objective Other/Pertinent Objective STRENGTH - R ankle 5/5, PF 2/5 with ankle and knee pain, R quads 5/5, HS 5-/5, R Hip abd 3/5, extension 3+/5 (L 5/5) AROM - L knee 5/0/137 R knee 0/10/123 R ankle DF -1, PF 42, inv 12, evs 4 MEASUREMENTS: L R 6 above MP 47.5 cm 45 cm 2 above MP 38.75 cm 37.75 cm joint line 34. 25 cm 34 cm 6 below MP 33.75 cm 35.5 cm PALPATION - pocket of fluid behind R knee in popliteal fossa GAIT - moderately antalgic with more side to side shuffle than normal gait Patient Instructed in Risks/Benefits Yes Therapeutic Exercise Therapeutic Exercise Minutes (minutes) 20 Therapeutic Exercise: To Restore -bike S6 L6 8' Functional Status -B heel raise 2x10 -air squats 10x -adductor lunge 10x -butt kicks 10x -leg press S8 70# 3x10 -SL leg press 10# 2x10 ea Treatment Minutes Timed Code Treatment Minutes 20 Total Treatment Time 20 Billing Units Therapeutic Exercise Units 1 Re-Evaluation Units 1 Assessment/Impression Assessment/Impression Pt. is a 67 y/o male s/p hardware removal after ankle fracture with primary knee OA. He has calf and hip weakness contributing to impaired balance and gait. He needs more strength to support both his knee and ankle. At his hardware removal they discussed a knee replacement and this will be done in the near future. It is important that his calf strength improves prior to having his knee done. Plan of Care Physical Therapy Goals SHORT TERM GOALS: (3 weeks) 1. Minimally antalgic gait with SPC for 200 feet. 2. Pt. to have 3/5 or greater plantar flexor strength to assist in gait and stairs. 3. Pt. to have DF to neutral to assist in gait. LONG-TERM GOALS: (6+weeks) 1. Daily Plan of Care Change POC; See Comments Daily Plan of Care Comments GUILLERMO Soto re-ed Recertification Information Initial Certification Date 08/26/22 Recertification Start Date 11/11/22 Recertification Due Date 02/10/23 Reasons to Continue Skilled Therapy impaired gait, decreased ankle and knee ROM, weakness Continued Plan of Care and Interventions GUILLERMO soto re-ed Provider Signature Shows Agreement With POC & Medical Necessity Physician Comment/Change Comment or Changes
--- NOTE | 2023-02-14 11:40 | PT.OPDN ---
PT [place] Outpatient Daily Note PT [facility] Out[facility] Daily Note Start: 08/26/22 09:45 Freq: Status: Active Protocol: Document 02/14/23 10:45 LSL (Rec: 02/14/23 11:39 LSL [id number]) E-signed By Angie Peoples, PT PT OP Daily Progress Note Visit Information Note Type Daily Note,Recert/Progress Note Visit Number 30 Insurance Authorized Visits TBD Physician Authorized Visits eval & treat Insurance Information Recert Due Date 04/24/23 Insurance Name Medicare B,Blue Cross/Blue Shield Insurance Information/Comments BCBS supplement Medical Diagnosis s/p R traumatic Regalado type C ankle fracture with ORIF with hardware removal 10/20/22, knee pain Treating Diagnosis weakness, pain, impaired balance and gait, impaired ROM Referring MD Wolf Subjective Subjective Pt. reports his knee is getting progressively worse all the time. Giving out on me more often. My therapy appt. is today at 12:45. Preferred Name Cecil Precautions Treatment Precautions/Contraindications recent cervical fusion Weight Bearing Status Weight Bear as Tolerated Objective Other/Pertinent Objective AROM 0/4/121 PROM 0/3/130 STRENGTH R HS 5/5, quad 4+/5, plantar flexion 2/5 MEASUREMENTS 6 above MP 45.5 cm 2 above MP 37.5 cm joint line 33.5 cm 6 below MP 34 cm GAIT moderately antalgic with lack of R knee extension, flexed trunk with B shoulder IR SLB R 4sec, L 11 sec Patient Instructed in Risks/Benefits Yes Therapeutic Exercise Therapeutic Exercise Minutes (minutes) 47 Therapeutic Exercise: To Restore -bike S8 L7 10' Functional Status -leg press S9 100# 12x, 110# 10x, 130# 10x -HS curl 55# 10x, 60# 10x, 70# 10x -SL leg sit to stand with balance 18# 10x (held) -LAQ 60# 10x, 70# 2x10 -SL LAQ 10# 2x10 B -lumbar extension 90# 2x10 -CC lateral step 14# 5x ea ( held) with measurements for PN Treatment Minutes Timed Code Treatment Minutes 47 Total Treatment Time 47 Billing Units Therapeutic Exercise Units 3 Assessment/Impression Assessment/Impression Pt. struggles with medial lateral stability and balance which may be complicated by lumbar issues in addition to his B knee OA. Today his L knee was also bothering him during some of the exercises which is new. He is having his first session with mental health therapist today which will hopefully help his outlook prior to his surgery as appropriate mindset will be important to his recovery. Continued work on strength and ROM with PT through pre-op period is important to ensure best outcome after surgery. Plan of Care Physical Therapy Goals SHORT TERM GOALS: (3 weeks) 1. Minimally antalgic gait with SPC for 200 feet. 2. Pt. to have 3/5 or greater plantar flexor strength to assist in gait and stairs. 3. Pt. to have DF to neutral to assist in gait. 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 Daily Plan of Care Continue per POC Daily Plan of Care Comments GUILLERMO Soto re-ed Recertification Information Initial Certification Date 08/26/22 Recertification Start Date 02/10/23 Recertification Due Date 04/24/23 Reasons to Continue Skilled Therapy impaired balance, impaired gait, weakness, decreased function in ADLs Rehabilitation Potential Good Continued Plan of Care and Interventions GUILLERMO soto re-ed until surgery and then will complete a new cert Provider Signature Shows Agreement With POC & Medical Necessity Physician Comment/Change Comment or Changes
--- NOTE | 2023-04-03 16:31 | PT.OPE ---
PT [place] Outpatient Eval PT [facility] Outpatient Eval Start: 08/26/22 09:45 Freq: Status: Active Protocol: Document 04/03/23 14:47 DEVON (Rec: 04/03/23 14:49 DEVON [id number]) E-signed By Carlos Aleman DPT, MS Physical Therapy Outpatient Evaluation Insurance Information Recert Due Date 07/02/23 Insurance Name Medicare B,Blue Cross/Blue Shield Medical Diagnosis Dizziness and giddiness; cervicalgia Treating Diagnosis R posterior canal BPPV, neck pain and imbalance Subjective Subjective Patient presents to PT with c/ o dizziness of insidious origin 2-3 weeks ago when getting out of bed. Describes sxs as feeling off with mild room spinning dizziness with supine<>sit transfers, rolling to the R in bed, forward bending and looking up. One incident of dizziness 6 years ago which resolved with anti- biotic treatment. Currently being treated in PT following an ankle fracture and may have a TKA in April if cleared for a heart murmur. PSH of CS fusion and ankle surgery. AGGR factor: supine<>sit transfers , rolling to the R in bed, forward bending and looking up , turning his head. ALLEV factors: rest, meclizine. Pt hopes to eliminate dizziness sxs and decrease fall risk. Pain Comments Mild-mod dizziness Current Work Status Retired Preferred Name Cecil Precautions Weight Bearing Status Weight Bear as Tolerated Therapy Limitations/Systems Review Not Limited Objective Functional Test Performed & Score DHI: 42% Assessment Assessment/Impression Testing revealed signs and symptoms consistent with R posterior canalithiasis BPPV. Following canalith repositioning maneuver x 2 pt presented as resolved with re- testing with improved dizziness sxs following today? s session. Decreased CS flexibility from previous CS fusion with treatment modification with pillow use being successful. Imbalance during balance testing on foam consistent with peripheral vestibular dysfunction. All other neurological testing normal. Negative visual and all other neurological testing today. Recommended pt avoid sustained flex or ext head positions over the next 48 hours. He would benefit from continued skilled PT intervention to address current limitations. Primary Functional Limitations Supine<>sit transfers, rolling to the R in bed, forward bending and looking up, turning his head Plan of Care Rehabilitation Potential Good Rehabilitation Potential Comments Due to PSH and complex PMH Physical Therapy Goals Therapy goals to be completed in 10 weeks: 1. Pt will display improved B CS rot AROM >66 deg to check blind spots while driving. 2. Patient will display resolution of R posterior canalithiasis BPPV symptoms for >5 consecutive days to improve safety with household cleaning activities. 3. Patient will display improved Romberg balance on foam surface with eyes closed >4 sec with minimal sway to decrease falls risk on compliant surfaces. 4. Pt will report >75% improvement on DHI questionnaire to significantly improve jayjay to daily activities. Coordination/Communication With Referral Source Treatment Plan/Direct Interventions Canalith Repositioning,Manual Therapy,Neuromuscular Re-ed Frequency/Duration 1x per week for as needed for 6-10 visits, decreasing visit frequency, as able. Patient Will Be Discharged From Therapy Completion of LTG(s),Skills Plateau,Independent w/HEP, Independently Progressing Evaluation Billing Untimed Code Treatment Minutes 24 Complexity Moderate Certification Information Initial Certification Date 04/03/23 Ending Certification Date 07/02/23 Provider Signature Shows Agreement With POC & Medical Necessity Physician Signature & Date Requested Please Sign/Date Here Physician Comment/Change : Physician NPI Number #
--- NOTE | 2023-05-16 12:49 | PT.OPDN ---
[facility] Daily [facility] Daily Note Start: 08/26/22 09:45 Freq: Status: Active Protocol: Document 05/16/23 09:09 LSL (Rec: 05/16/23 09:48 LSL [id number]) E-signed By Angie Peoples, PT PT OP Daily Progress Note Visit Information Note Type Daily Note Visit Number [id number] Insurance Authorized Visits TBD Physician Authorized Visits eval & treat Insurance Information Recert Due Date 04/24/23 Insurance Name Medicare B,Blue Cross/Blue Shield Insurance Information/Comments BCBS supplement Medical Diagnosis s/p R traumatic Regalado type C ankle fracture with ORIF with hardware removal 10/20/22, knee pain Treating Diagnosis weakness, pain, impaired balance and gait, impaired ROM Referring MD Wolf Subjective Subjective Pt. reports his knee has been feeling pretty good lately. He has been less active due to testing positive for COVID but without symptoms. Preferred Name Cecil Precautions Treatment Precautions/Contraindications recent cervical fusion Weight Bearing Status Weight Bear as Tolerated Home Exercise Home Exercise Comments Issued post op HEP today and encouraged him to complete regularly prior to surgery, so he understands how to do his exercises. Objective Other/Pertinent Objective STRENGTH quads, HS, hip flexion 5/5, abduction 5/5, gastroc 1/5 AROM - GAIT - remains antalgic with flexed trunk and decreased arm swing BALANCE - 13 seconds on R Patient Instructed in Risks/Benefits Yes Therapeutic Exercise Therapeutic Exercise Minutes (minutes) 45 Therapeutic Exercise: To Restore -bike S8 L6 10' Functional Status -leg press S8, 70# x 15, 90# x 12, 110# x 10 -6 lateral step-ups, 2 x 10/ -HS curl machine, 50#, 3x10 -LAQ 50# 3x10 -8 step up 2x10 -Gastroc stretch on slant board x 60 with measurements for PN. Treatment Minutes Timed Code Treatment Minutes 45 Total Treatment Time 45 Billing Units Therapeutic Exercise Units 3 Assessment/Impression Assessment/Impression Pt. has missed the last week and a half due to mild case of COVID. He had no more difficulty than usual with breathing during therex today. He sees his cardiac team this afternoon to determine the type of procedure he will have for his valve replacement. Currently just maintaining his gains until that is known, since his TKA was delayed. Plan of Care Physical Therapy Goals SHORT TERM GOALS: (3 weeks) 1. Minimally antalgic gait with SPC for 200 feet. 2. Pt. to have 3/5 or greater plantar flexor strength to assist in gait and stairs. 3. Pt. to have DF to neutral to assist in gait. ASSISTED GOALS: (6+weeks) 1. Daily Plan of Care Continue per POC Daily Plan of Care Comments GUILLERMO Soto re-ed Recertification Information Initial Certification Date 08/26/22 Recertification Start Date 04/25/23 Recertification Due Date 06/23/23 Reasons to Continue Skilled Therapy impaired balance, impaired gait, weakness through full ROM Rehabilitation Potential Good Continued Plan of Care and Interventions GUILLERMO soto re-ed until cardiac surgery Provider Signature Shows Agreement With POC & Medical Necessity Physician Comment/Change Comment or Changes
== END 2023-10-06 23:59 | disposition home or self-care (01) ==
PROVIDERS: PCP Family Medicine; Visit Provider Physician Assistant Medical
DX: Z98.890 Other specified postprocedural states (principal); Z51.89 Encounter for other specified aftercare
CPT/HCPCS: 80053; 80061; 82043; 82570; 97032; 97110; 97112; 97140; 97161; 97162; 97164

== ENCOUNTER 2023-07-05 21:19 | Emergency (ER) | payer MEDICARE, BC, SELFPAY ==
[2023-07-05 21:32] VITALS: BP 156/80; PULSE 77; RESP 18; TEMP 37.4; O2SAT 97; BMI 30.4
--- NOTE | 2023-07-05 21:38 | CRLHL7_ITS ---
For Patients: As a result of the Century Cures Act, medical imaging exams and procedure reports are released immediately into your electronic medical record. You may view this report before your referring provider. If you have questions, please contact your health care provider. INDICATION: LT GROIN PAIN AFTER ATRIAL VALVE REPLACEMENT. TECHNIQUE: CT abdomen and pelvis acquired with 100 cc Isovue 370 IV contrast. COMPARISON: CT abdomen and pelvis 01/07/2013. FINDINGS: Lower chest: Aortic valve replacement. Mitral annulus calcification. No pericardial effusion. The lung bases are clear. Liver: Unremarkable. Normal in size and attenuation. No suspicious masses. Gallbladder and bile ducts: Unremarkable. No stones or inflammation. No biliary dilatation. Pancreas: Unremarkable. No mass or inflammation. Spleen: Unremarkable. Normal in size. No masses. Adrenal glands: Unremarkable. No nodules. Kidneys: Unremarkable. No suspicious masses, stones, or hydronephrosis. GI tract: Diverticulosis without pericolonic inflammation. No obstruction. Normal appendix. Vasculature: Normal caliber abdominal aorta with moderate atherosclerotic calcification. Inflammatory stranding in the left inguinal region with multiple surgical clips, compatible with recent vascular access. Likely tiny, 6 mm pseudoaneurysm arising from the posterior wall of the left common femoral artery, series 6, image 372. No evidence for active extravasation. Mesenteric arteries are patent. Lymph nodes: No lymphadenopathy. Peritoneum/Abdominal Wall: Moderate-sized hematoma within the medial left groin, best seen on series 8, image 40, measuring 3.2 x 1.9 x 7.4 cm. No free air or significant free fluid. Pelvis: Unremarkable. Bones: L3-L5 posterior fusion with advanced degenerative disc changes within the remainder of the lumbar spine. No acute findings or aggressive osseous lesion. There is degenerative changes of the left hip and left sacroiliac joint. IMPRESSION: 1. Findings compatible with recent left groin vascular access. Tiny 6 mm pseudoaneurysm arising from the posterior wall of the left common femoral artery. No evidence for active extravasation. 2. Moderate-sized hematoma within the medial left groin. Please note that all CT scans at this facility use dose modulation, iterative reconstruction, and/or weight-based dosing when appropriate to reduce radiation dose to as low as reasonably achievable. Dictated by Donald Altman MD @ 07/05/2023 11:35:07 PM (Electronically Signed)
--- NOTE | 2023-07-05 21:41 | ED.GENADULT ---
HPI - General Adult General Date Seen: 07/05/23 Chief complaint: Groin Pain Stated complaint: Heart valve replacement, bleeding in leg Time Seen by Provider: 07/05/23 21:28 History of Present Illness HPI narrative: This is a 68-year-old man with a history of severe aortic stenosis, days status post TAVR done at [facility], also with complication from TAVR that is reported as ?femoral artery rupture? that required vascular surgical repair, also with a distant history of AFib (on warfarin). He also has a past medical history that include mitral regurgitation, CHF, coronary artery disease, elevated BMI, former smoker, lung mass. He is brought to the ER today by private car by his daughter who is a nurse here at our hospital for evaluation of a new mass involving his left groin. He was hospitalized at [facility] 6 days ago and had a TAVR. It sounds like the valve replacement itself went smoothly. However it sounds like when the embossing machine operator removed the sheath from the TAVR he had significant bleeding. His daughter indicates that they ruptured his femoral artery. He required emergency vascular surgery and has a long incision in his left groin apparently from the femoral artery repair. He was discharged home several days ago. He was told to resume his warfarin, so he did. He is not on bridging Lovenox. He has been feeling a bit run down all week but otherwise no chest pain, shortness of breath,. No syncope or weakness or dizziness. No fever. Tonight, further is 1st time, he felt a firm lump in his left groin. He does not exactly know when it started but he thinks this started after a coughing spell tonight. His daughter drove him her emergently here to the ER in [place]. Nothing he is here he says is not really bothering him. There is a firm lump in his left groin that is tender. He does not feel like it is getting bigger. He does not know his INR but he did restart his Coumadin after being discharged from his surgery. In review of results through [facility] INR was 1.1 on 07/01. No recent hemoglobin measurements. His TAVR procedure is a was on 06/29. There was bleeding from his left groin arteriotomy site. This required emergent vascular surgery repair, by Dr. Levy. From his procedure note: We were called emergently to this patient's transcatheter valve replacement. There was significant bleeding from the large bore access site in the left groin with failure of the Perclose devices. We described in immediately and attempted control of the arteriotomy with a Perclose sutures however this was not possible due to likely disruption of the anterior wall of the artery. Over a stiff wire we advanced an 18 Hungarian dry seal sheath. We then made a transverse incision in the left groin through which we explored the common femoral artery. We obtained the proximal and distal control of the artery in relationship to the arteriotomy. It was noted that there was significant disruption of the anterior wall of the common femoral artery with complete disruption of the wall and significant dissection flap in the proximal and distal segment of the arteriotomy with dense calcified plaque that has dislodged. The back wall of the artery was also severely injured as evidenced by a laceration in the intima. I was able to obtain control of the artery and removed the sheath. I then performed an endarterectomy in a standard fashion. The posterior wall intimal disruption was refreshed and careful examination of the posterior wall showed evidence of an intact the adventitial layer. The intimal disruption was tacked with a series of 6-0 Prolene sutures. Then brought in a bovine pericardial patch and sewed the patch in usual fashion. Prior to completion of the patch angioplasty we had good forward bleeding and backbleeding from the artery. Once this was done we went ahead and used the previously existing right-sided common femoral artery sheath, I went up and over the bifurcation and obtained a left leg angiogram. This showed a patent repair with a patent SFA and profunda with good flow. There was evidence of a shelf of calcium proximally and distally in relationship to the patch, I decided not to tackle this and not to address it given the adequacy of flow to the foot. A Doppler examination of the left foot revealed an excellent DP signal. Satisfied with this we obtained hemostasis in the incision, the groin was closed in layers and the skin was reapproximated. Please refer to the cardiology dictation for the rest of the procedure. From DC summary 06/30 Transthoracic echocardiogram performed 06/29/2023 post valve implant and personally reviewed: ?1. Normal LV size, mildly increased wall thickness, normal global systolic function with an estimated EF of 60 - 65%. ?2. The aortic valve is 29mm Evolut Fx, no stenosis and no regurgitation.The aortic valve peak velocity is 2.3 m/s, the peak gradient is 21 mmHg, and the mean gradient is 11 mmHg. The aortic valve area is 2.63 cm? with a dimensionless index of 0.93. The stroke volume index is 62.8 ml/m?. ?3. The mitral valve is sclerotic and mean mitral gradient 5 mmHg, mild mitral regurgitation. ?4. No pericardial effusion. ? Impression/Plan 1.?Severe aortic stenosis now s/p successful transfemoral TAVR with 29 mm Evolut FX c/b primary access site bleeding requiring a left femoral cutdown, endarterectomy with patch angioplasty 2.?Left bundle branch block following #1 3. Chronic diastolic heart failure 4. Paroxysmal atrial fibrillation (s/p prior catheter ablation x2, on chronic anticoagulation) 5. COPD 6. MS/MAC mild mitral regurgitation 7. Degenerative joint disease 8. Diffuse eczema ? In summary?yesterday (06/29)?Mr. Ahumada?underwent successful implantation of the aforementioned THV for treatment of severe symptomatic aortic stenosis.?Unfortunately upon completion of the procedure, there was difficulty with hemostasis with the PerClose device(s) at the primary LCFA site. Vascular surgery (Dr. Levy) was consulted for evaluation. In the end a left femoral cutdown, endarterectomy with patch angioplasty was required. Aside from the aforementioned vascular complication there were no other adverse events. He does have a new left bundle branch block but no evidence of HAVB or worrisome conduction changes. At present?the patient is hemodynamically stable, euvolemic and the?remainder of the post operative care has been unremarkable to date. We will await further input from vascular surgery pertaining to wound care, resumption of anticoagulation, disposition/follow up, etc. Aside from this we anticipate he?will?qualify for discharge home with self-care following additional conditioning/ambulation and surgical site stability. He was discharged compared he return to the [facility] ER on 07/01 for fatigue and shortness of breath. Blood pressure was 125/69. Pulse 82. Exam showed ecchymosis over the left groin and proximal thigh. WBC 10.0, hemoglobin 9.2, platelet count 280. ProBNP was 372. High sensitive troponin was positive at 71 (upper limit of normal 15 and a g per L. Portable chest x-ray showed mild pulmonary edema. Sodium 140, potassium 4.3, chloride 103, bicarb 27, calcium 9.1, BUN 18, creatinine 0.97. US ARTERIAL LOWER EXTREMITY PSEUDOANEURYSM LEFT NORI-- No pseudoaneurysm identified on provided images. No significant hematoma. Visualized portions of the left common femoral artery, superficial femoral artery, and deep femoral artery are patent, with scattered atherosclerotic calcifications. Left common femoral vein is patent. Related Data Home Medications Medication Instructions Recorded Confirmed atorvastatin 40 mg tablet 40 mg PO HS 01/13/22 07/03/23 tamsulosin 0.4 mg capsule 0.4 mg PO DAILY 01/13/22 07/03/23 warfarin 7.5 mg tablet 7.5 mg PO .COMPLEX 01/13/22 07/03/23 albuterol sulfate 90 mcg/actuation 1 - 2 inh inhalation Q6H PRN 06/27/22 07/03/23 aerosol inhaler ipratropium 0.5 mg-albuterol 3 mg 3 ml inhalation Q6H PRN 06/27/22 07/03/23 (2.5 mg base)/3 mL nebulization soln acetaminophen 500 mg tablet 500 mg PO Q4H PRN 01/11/23 07/03/23 montelukast 10 mg tablet 10 mg PO QHS 01/11/23 07/03/23 nitroglycerin 0.4 mg sublingual 0.4 mg sublingual Q5M PRN 01/11/23 07/03/23 tablet Previous Rx's Medication Instructions Recorded Knee Scooter- Adult #1 ea 06/29/22 amlodipine 10 mg tablet 10 mg PO DAILY #90 tabs 04/28/23 citalopram 20 mg tablet 20 mg PO QDAY #90 tabs 05/01/23 losartan 100 mg tablet 100 mg PO DAILY #90 tabs 05/30/23 gabapentin 600 mg tablet 600 mg PO QPM #90 tabs 06/07/23 glipizide 10 mg tablet, extended 10 mg PO DAILY #90 tabs 06/07/23 release 24 hr triamcinolone acetonide 0.1 % 1 applic topical TID #80 grams 06/13/23 topical ointment warfarin 7.5 mg tablet 7.5 mg PO DAILY #90 tabs 06/13/23 metformin 1,000 mg tablet 1,000 mg PO BID #180 tabs 06/26/23 Allergies Allergy/AdvReac Type Severity Reaction Status Date / Time No Known Drug Allergies Allergy Verified 07/05/23 22:37 [facility] Medical History (Updated 07/03/23 @ 12:57 by Emely Henson PA-C) History of transcatheter aortic valve replacement (TAVR) (~06/29/23) ?Z95.2 - Presence of prosthetic heart valve (ICD-10) Nausea and vomiting (07/07/11) ?R11.2 - Nausea with vomiting, unspecified (ICD-10) Change in vision ?H53.9 - Unspecified visual disturbance (ICD-10) Dyslipidemia ?E78.5 - Hyperlipidemia, unspecified (ICD-10) Impotence, organic ?N52.9 - Male erectile dysfunction, unspecified (ICD-10) Hypermetropia ?H52.00 - Hypermetropia, unspecified eye (ICD-10) Presbyopia ?H52.4 - Presbyopia (ICD-10) Regular astigmatism ?H52.229 - Regular astigmatism, unspecified eye (ICD-10) Essential (primary) hypertension ?I10 - Essential (primary) hypertension (ICD-10) ASHD (arteriosclerotic heart disease) ?I25.10 - Atherosclerotic heart disease of [place] coronary artery without angina pectoris (ICD-10) Paroxysmal atrial fibrillation ?I48.0 - Paroxysmal atrial fibrillation (ICD-10) Rotator cuff tear ?M75.100 - Unspecified rotator cuff tear or rupture of unspecified shoulder, not specified as traumatic (ICD-10) Systolic murmur ?R01.1 - Cardiac murmur, unspecified (ICD-10) Liver cyst ?K76.89 - Other specified diseases of liver (ICD-10) Anticoagulation goal of INR 2 to 3 ?Z51.81 - Encounter for therapeutic drug level monitoring (ICD-10) ?Z79.01 - superintendent container terminal (current) use of anticoagulants (ICD-10) Rupture of left long head biceps tendon ?S46.112A - Strain of muscle, fascia and tendon of long head of biceps, left arm, initial encounter (ICD-10) Partial tear of subscapularis tendon ?S46.819A - Strain of other muscles, fascia and tendons at shoulder and upper arm level, unspecified arm, initial encounter (ICD-10) Unspecified rotator cuff tear or rupture of left shoulder, not specified as traumatic ?M75.102 - Unspecified rotator cuff tear or rupture of left shoulder, not specified as traumatic (ICD-10) Nonrheumatic aortic (valve) stenosis (~04/30/12) ?I35.0 - Nonrheumatic aortic (valve) stenosis (ICD-10) PAOLO (obstructive sleep apnea) (~11/20/18) ?G47.33 - Obstructive sleep apnea (adult) (pediatric) (ICD-10) Bicuspid aortic valve (~03/24/20) ?Q23.1 - Congenital insufficiency of aortic valve (ICD-10) Stenosis of cervical spine ?M48.02 - Spinal stenosis, cervical region (ICD-10) Surgical History (Updated 01/24/23 @ 08:57 by Demetrio De La Torre) History of surgery on right wrist (12/08/18) ?Z98.890 - Other specified postprocedural states (ICD-10) S/P hardware removal (10/20/22) ?Z98.890 - Other specified postprocedural states (ICD-10) Hx of nasal septoplasty (04/23/09) ?Z98.890 - Other specified postprocedural states (ICD-10) S/P lumbar fusion ?Z98.1 - Arthrodesis status (ICD-10) History of cardiac radiofrequency ablation ?Z98.890 - Other specified postprocedural states (ICD-10) History of cervical discectomy ?Z98.890 - Other specified postprocedural states (ICD-10) Status post arthroscopy of right shoulder (04/22/08) ?Z98.890 - Other specified postprocedural states (ICD-10) Status post arthroscopy of left shoulder (02/19/10) ?Z98.890 - Other specified postprocedural states (ICD-10) S/P trigger finger release (11/29/18) ?Z98.890 - Other specified postprocedural states (ICD-10) History of carpal tunnel surgery of right wrist (11/29/18) ?Z98.890 - Other specified postprocedural states (ICD-10) S/P ORIF (open reduction internal fixation) fracture (07/01/22) ?Z98.890 - Other specified postprocedural states (ICD-10) ?Z87.81 - Personal history of (healed) traumatic fracture (ICD-10) Family History (Updated 01/11/23 @ 13:41 by Emely Henson PA-C) Brother Diabetes Social History (Updated 01/11/23 @ 09:26 by Emely Henson PA-C) Narrative: . from [facility]. 3 adult kids. 2 grandkids. 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 One of his adult sons lives with him. Former smoker- Quit 35 years ago. Denies recreational drugs Alcohol -rare use ( less than one drink per week) Smoking Status: Former smoker How often do you have a drink containing alcohol: never How often do you have six or more drinks on one occasion: Never AUDIT-C Alcohol total score: 0 Non-prescribed substance use: denies use Caffeine: Yes Little interest or pleasure in doing things: several days Feeling down, depressed, or hopeless: several days Exam Narrative: Exam Narrative: Constitutional: Appears well-developed and well-nourished. Alert. Conversant. Non toxic. HENT: Head: Atraumatic. Nose: Nose normal. Mouth/Throat: Oral mucosa is clear and moist. no trismus. Pharynx normal. Tonsils symmetric. No tonsillar enlargement, erythema, or exudate. Eyes: Conjunctivae normal. EOM normal. Pupils equal, round, and reactive to light. No scleral icterus. Neck: Normal range of motion. Neck supple. No tracheal deviation present. Cardiovascular: Normal rate, regular rhythm. No gallop. No friction rub. Systolic and diastolic murmur heard. Symmetric radial and he a PT artery pulses . He has a significant amount of ecchymosis in his left groin that all appears to be purplish/greenish and likely related to his surgery 6 days ago. There is a palpable mass over the left groin/femoral artery that is roughly 3 x 6 or 7 cm in diameter. It is not pulsatile. It is tender. No overlying erythema. He also has a healed 8-12 cm linear incision in the left groin. The incision edges are dry, well apposed. No bleeding. No purulent drainage. Pulmonary/Chest: Effort normal. No stridor. No respiratory distress. No wheezes. No rales. No rhonchi . No tenderness. Abdominal: Soft. Bowel sounds normal. No distension. No mass. No tenderness. No rebound. No guarding. No CVA tenderness. Musculoskeletal: RUE: Normal range of motion. No tenderness. No deformity LUE: Normal range of motion. No tenderness. No deformity RLE: Normal range of motion. No edema. No tenderness. No deformity LLE: Range of motion and left hip is limited by groin pain.. No edema. No tenderness. No deformity Neurological: Alert and oriented to person, place, and time. Normal strength. CN II-VII intact. No sensory deficit. GCS eye subscore is 4. GCS verbal subscore is 5. GCS motor subscore is 6. Normal coordination Skin: Skin is warm and dry. No rash noted. No pallor. Normal capillary refill. Psychiatric: Normal mood. Normal affect. Const: Vital Signs, click to edit/add: Vital Signs - 24 hr 07/05/23 21:32 Temperature 99.3 F Pulse Rate [Pulse Oximeter] 77 Respiratory Rate 18 Blood Pressure [Ri ght Upper Arm] 156/80 H Pulse Oximetry 97 Oxygen Delivery Me thod Room Air Course Vital Signs Vital signs: Initial Vital Signs Temperature 99.3 F 07/05/23 21:32 Temperature Source Temporal Artery Scan 07/05/23 21:32 Pulse Rate 77 07/05/23 21:32 Pulse Rhythm Regular 07/05/23 21:32 Respiratory Rate 18 07/05/23 21:32 Blood Pressure 156/80 H 07/05/23 21:32 Blood Pressure Mean 105 07/05/23 21:32 Blood Pressure Position Sitting 07/05/23 21:32 Pulse Oximetry 97 07/05/23 21:32 Oxygen Delivery Method Room Air 07/05/23 21:32 Vital Signs Temperature 99.3 F 07/05/23 21:32 Pulse Rate 77 07/05/23 21:32 Respiratory Rate 18 07/05/23 21:32 Blood Pressure 156/80 H 07/05/23 21:32 Pulse Oximetry 97 07/05/23 21:32 Oxygen Delivery Method Room Air 07/05/23 21:32 Temperature 99.3 F 07/05/23 21:32 Pulse Rate 77 07/05/23 21:32 Respiratory Rate 18 07/05/23 21:32 Blood Pressure 156/80 H 07/05/23 21:32 Pulse Oximetry 97 07/05/23 21:32 Oxygen Delivery Method Room Air 07/05/23 21:32 Medical Decision Making MDM Narrative Medical decision making narrative: 68-year-old gentleman with history of aortic stenosis who is now 6 days status post TAVR done at [facility]. That procedure was complicated by significant injury to his left femoral artery from the she. This required emergent vascular surgery repair of injuries to the anterior and posterior wall of the left femoral artery. He was discharged after his procedure. He did have a follow-up visit at [facility] 2 days later for fatigue at that time had anemia with a hemoglobin of 9 point to and arterial ultrasound did not show any aneurysm or other abnormality. He returns to the ER tonight for a new painful lump in the left groin. Initial concern is for possible rupture or active bleeding from his femoral artery however on my exam he is hemodynamically stable, comfortable, only mild tender. There is no evidence for a pulsatile or expanding hematoma at the time of presentation. I did order stat CT angiogram to reassess that femoral artery to look for signs of evolving hematoma, or any signs of active bleeding. Results pending at this time. Discussed with my partner Dr. Irvin He is hemogram medically stable. Lab workup today shows stable hemoglobin at 9.3. Unchanged from ER visit to [facility] 4 days ago. INR INR is 1.4. CLinical Impression: 1. Left groin pain Lab Data Labs: Lab Results 07/05/23 Range/Units 21:26 WBC 9.37 (4.50-11.00) K/uL RBC 3.34 L (4.30-5.90) m/uL Hgb 9.3 L (13.5-17.5) gm/dL Hct 28.6 L (37.0-53.0) % MCV 86 (80-100) fL MCH 28 (26-34) pg MCHC 33 (32-36) gm/dL RDW Coeff of Heladio 13.4 (11.5-15.5) % Plt Count 374 (140-440) K/uL Neut % (Auto) 71.0 (42.0-72.0) % Lymph % (Auto) 12.6 L (20-44) % [place] % (Auto) 8.0 (0.0-11.0) % Eos % (Auto) 8.1 H (0.0-7.0) % Baso % (Auto) 0.2 (0.0-3.0) % Neut # (Auto) 6.65 (1.7-7.0) K/uL Lymph # (Auto) 1.20 (0.90-2.90) K/uL [place] # (Auto) 0.70 (0.00-0.90) K/UL Eos # (Auto) 0.80 H (0.00-0.50) K/uL Baso # (Auto) 0.02 (0.00-0.30) K/uL Abs Immat Gran (auto) 0.01 (0.00-0.30) K/uL Imm/Tot Granulo (auto) 0.1 % INR 1.44 H (0.91-1.10) Sodium 138 (135-149) mmol/L Potassium 4.5 (3.6-5.1) mmol/L Chloride 101 (96-114) mmol/L Carbon Dioxide 28 (20-32) mmol/L Anion Gap 9 (7-15) mEq/L BUN 16 (7-30) mg/dL Creatinine 0.8 (0.5-1.5) mg/dL Estimated Creat Clear 68.40 Estimated GFR 96 ml/min Glucose 200 H (60-115) mg/dL Calcium 9.1 (8.4-10.6) mg/dL ECG Data Attestation: I personally reviewed and interpreted this ECG as follows: Interpretation: Normal sinus rhythm rate 74 FL 174 QRS axis normal axis. Left bundle-branch block. ST segment/T wave: No ST segment elevation or depression. QTc: 495 Discharge Plan Discharge Prescriptions: No Action acetaminophen 500 mg tablet 500 mg PO Q4H PRN nitroglycerin 0.4 mg tablet, sublingual 0.4 mg sublingual Q5M PRN Patient Comments: Place two tablets under tongue every 5 minutes if need for chest pain Rx Instructions: do not exceed 3 doses per episode montelukast 10 mg tablet 10 mg PO QHS tamsulosin 0.4 mg capsule 0.4 mg PO DAILY warfarin 7.5 mg tablet 7.5 mg PO .COMPLEX Protocol: Dose Management Condition: Monday Dose/Route: 3.75 mg Instruction: 0.5 x 7.5 mg tablets Condition: Monday Dose/Route: 7.5 mg Instruction: 1 x 7.5 mg tablet Condition: Monday Dose/Route: 3.75 mg Instruction: 0.5 x 7.5 mg tablets Condition: Monday Dose/Route: 7.5 mg Instruction: 1 x 7.5 mg tablet Condition: Dose/Route: 3.75 mg Instruction: 0.5 x 7.5 mg tablets Condition: Monday Dose/Route: 7.5 mg Instruction: 1 x 7.5 mg tablet Condition: Monday Dose/Route: 7.5 mg Instruction: 1 x 7.5 mg tablet Protocol Text: Adjustment Start Date: Monday06/19/23 INR Value: 2.2 INR Date: 06/19/23 Recheck Date: 07/17/23 Patient Comments: TAKE 1/2 TABLET BY MOUTH EVERY MONDAY AND MONDAY AND TAKE 1 TABLET ON ALL OTHER DAYS OR DIRECTED. Rx Instructions: 7.5 mg orally See patient comments; atorvastatin 40 mg tablet 40 mg PO HS Patient Comments: TAKE ONE TABLET BY MOUTH AT BEDTIME (DME) Knee Scooter- Adult Misc See Rx Instructions .Route Qty: 1 0RF Rx Instructions: As directed albuterol sulfate 90 mcg/actuation HFA aerosol inhaler 1 - 2 inh INHALATION Q6H PRN Patient Comments: INHALE 1-2 PUFFS BY MOUTH EVERY 6 HOURS IF NEEDED FOR SHORTNESS OF BREATH OR WHEEZING. USE FIRST CHOICE FOR WHEEZING AND SECOND CHOICE FO ipratropium-albuterol 0.5 mg-3 mg(2.5 mg base)/3 mL solution for nebulization 3 ml inhalation Q6H PRN amlodipine 10 mg tablet 10 mg PO DAILY Qty: 90 0RF Patient Comments: TAKE ONE TABLET BY MOUTH DAILY citalopram 20 mg tablet 20 mg PO QDAY Qty: 90 0RF Rx Instructions: once daily for mood losartan 100 mg tablet 100 mg PO DAILY Qty: 90 0RF Patient Comments: TAKE ONE TABLET BY MOUTH DAILY glipizide 10 mg tablet extended release 24hr 10 mg PO DAILY Qty: 90 3RF Patient Comments: TAKE ONE TABLET BY MOUTH ONCE DAILY BEFORE A MEAL Rx Instructions: 1 tablet daily for diabetes gabapentin 600 mg tablet 600 mg PO QPM Qty: 90 3RF Rx Instructions: Take 1 tablet nightly triamcinolone acetonide 0.1 % ointment 1 applic topical TID Qty: 80 1RF warfarin 7.5 mg tablet 7.5 mg PO DAILY Qty: 90 0RF Protocol: Dose Management Condition: Monday Dose/Route: 3.75 mg Instruction: 0.5 x 7.5 mg tablets Condition: Monday Dose/Route: 7.5 mg Instruction: 1 x 7.5 mg tablet Condition: Monday Dose/Route: 3.75 mg Instruction: 0.5 x 7.5 mg tablets Condition: Monday Dose/Route: 7.5 mg Instruction: 1 x 7.5 mg tablet Condition: Dose/Route: 3.75 mg Instruction: 0.5 x 7.5 mg tablets Condition: Monday Dose/Route: 7.5 mg Instruction: 1 x 7.5 mg tablet Condition: Monday Dose/Route: 7.5 mg Instruction: 1 x 7.5 mg tablet Protocol Text: Adjustment Start Date: Monday06/19/23 INR Value: 2.2 INR Date: 06/19/23 Recheck Date: 07/17/23 metformin 1,000 mg tablet 1,000 mg PO BID Qty: 180 3RF Patient Comments: TAKE ONE TABLET BY MOUTH TWICE DAILY WITH MEALS Rx Instructions: One tablet twice daily for diabetes Follow Up/Referrals: Emely Henson PA-C [Primary Care Provider] -
[2023-07-05 21:52] LABS: Basophils Absolute Auto 0.02 K/uL (0.00-0.30); Basophils Percent Auto 0.2 % (0.0-3.0); Eosinophils Percent Auto 8.1 % (0.0-7.0); Hematocrit 28.6 % (37.0-53.0); Hemoglobin* 9.3 gm/dL (13.5-17.5); Immature Granulocytes Abs Auto 0.01 K/uL (0.00-0.30); Immature Granulocytes Pct Auto 0.1 %; Lymphocytes Percent Auto 12.6 % (20-44); Mean Corpuscular HGB Conc 33 gm/dL (32-36); Mean Corpuscular Hemoglobin 28 pg (26-34); Mean Corpuscular Volume 86 fL (80-100); Neutrophils Absolute Auto 6.65 K/uL (1.7-7.0); Platelet Count* 374 K/uL (140-440); RDW Coefficient of Variation % 13.4 % (11.5-15.5); Red Blood Count 3.34 m/uL (4.30-5.90); White Blood Count* 9.37 K/uL (4.50-11.00)
--- OUTSIDE RECORDS SUMMARY | 2023-07-05 21:52 | XMS_ITS | Clinical Summary ---
Author Name Unknown Organization [employer] [facility] Address [place], [place] [address] Care Team Providers Care Modular Set Crew Member Name Role Phone Mali Robertson PA-C Primary Care Provider + [phone] Paul Soler MD Unavailable +- [phone] Allergies Active Allergy Reactions Criticality Noted Date Comments Prednisone Arrhythmia 02/20/2010 Patient goes into A-fib after taking Medications Medication Sig Dispensed Refills Start Date End Date Status (u) ACCUCHECK COMFORT CURVE STRIPS use as directed 100 1 5 Active blood-glucose meter (BLOOD GLUCOSE MONITORING)Indic ations:Diabetes mellitus without complication (HC) Dispense meter, test strips, lancets covered by pt ins. E11.9 NIDDM type II - Test 1 time/day 1 Device 0 6 Active nitroglycerin (NITROSTAT) 0.4 mg sublingual tabletIndication s:High coronary artery calcium score Place 2 tablets under the tongue every 5 minutes if needed for Chest Pain or Other (Specify) (up to 3 doses). 1 Bottle 1 6 Active CPAPIndications: PAOLO (obstructive sleep apnea) CPAP machine for home use at pressure: 10.3 cmw , Heated humidifier x 1 q 5 yr, Humidifier chamber x 1 q 6 mo, nasal mask x1 q 3mos, with cushion x 2 q mo, Heated tubing x 1 q 3 mo, Headgear x 1 q 6 mo, Filters: Disposable x 2 q mo non-disposable filters x1 q 6mo, Length of Need: 99 months, Frequency of use: Daily 1 Device 11 1 Active albuterol HFA (ProAir HFA) 90 mcg/actuation inhalerIndicatio ns:Panlobular emphysema (HC) Inhale 1-2 Puffs by mouth every 6 hours if needed for Shortness of Breath 2nd choice or Wheezing 1st choice. 1 Each 1 2 Active acetaminophen (TYLENOL EXTRA STRGTH) 500 mg tabletIndication s:Post-op pain Take 1 Tablet (500 mg) by mouth every 4 hours if needed for Pain (For mild pain.). Max acetaminophen dose: 4000mg in 24 hrs. 0 2 Active albuterol-ipratr opium (DUONEB) (2.5-0.5 mg) in 3 mL NEBULIZATION solutionIndicati ons:Panlobular emphysema (HC) Inhale 3 mL via a nebulizer every 6 hours if needed for Shortness of Breath 2nd choice or Wheezing 1st choice. Use 2-4 times per day. 75 mL 0 2 Active losartan (COZAAR) 100 mg tabletIndication s:Essential hypertension Take 1 Tablet (100 mg) by mouth once daily. 90 Tablet 0 3 Active atorvastatin (LIPITOR) 40 mg tabletIndication s:Type 2 diabetes mellitus without complication, without long-term current use of insulin (HC),Dyslipidemi a Take 1 Tablet (40 mg) by mouth at bedtime. 90 Tablet 3 3 Active triamcinolone (ARISTOCORT) 0.1 % ointmentIndicati ons:Eczema, unspecified type Apply topically to affected area(s) three times daily. 80 g 1 3 Active warfarin (COUMADIN) 7.5 mg tabletIndication s:Paroxysmal atrial fibrillation (HC),Anticoagula tion monitoring, INR range 2-3 Take by mouth 3.75 mg every Sun, Tue, Marcela; 7.5 mg all other days in the evening OR as directed 0 3 Active Additional Information Patient taking differently: Take by mouth 3.75 mg every Sun, Tue, Marcela; 7.5 mg all other days in the evening, Reported on 06/29/2023 montelukast (SINGULAIR) 10 mg tabletIndication s:Shortness of breath,Cough, unspecified type,Bronchiolit is Take 1 Tablet (10 mg) by mouth at bedtime. 30 Tablet 11 3 Active glipiZIDE extended-release (GLUCOTROL XL) 10 mg Extended-Release tabletIndication s:Type 2 diabetes mellitus without complication, without long-term current use of insulin (HC) Take 1 Tablet (10 mg) by mouth once daily before a meal. 90 Tablet 1 3 Active gabapentin (NEURONTIN) 600 mg tabletIndication s:Diabetic peripheral neuropathy (HC),Other insomnia Take 1 Tablet (600 mg) by mouth at bedtime 90 Tablet 1 3 Active tamsulosin (FLOMAX) 0.4 mg capsuleIndicatio ns:Lower urinary tract symptoms (LUTS) Take 1 Capsule (0.4 mg) by mouth once daily after a meal. 90 Capsule 2 3 Active mometasone-formo terol (Dulera) 200-5 mcg/actuation inhalerIndicatio ns:BENTLEY (dyspnea on exertion),Bronch iolitis Inhale 2 Puffs by mouth two times daily. 13 g 11 3 Active amLODIPine (NORVASC) 10 mg tabletIndication s:Essential hypertension TAKE ONE TABLET BY MOUTH DAILY 90 Tablet 0 3 Active citalopram (CELEXA) 20 mg tablet Take 20 mg by mouth every morning. 0 3 Active magnesium 250 mg tab Take 250 mg by mouth once daily. 0 Active diphenhydrAMINE (BenadryL) 25 mg capsule Take 25 mg by mouth at bedtime if needed. 0 Active POTASSIUM-99 ORAL Take 1 Tablet by mouth once daily. 0 Active metFORMIN (GLUCOPHAGE) 1,000 mg tabletIndication s:Type 2 diabetes mellitus without complication, without long-term current use of insulin (HC) Take 1 Tablet (1,000 mg) by mouth two times daily with meals. 60 Tablet 0 4 Active aspirin chewable 81 mg chewable tabletIndication s:PAD (peripheral artery disease) (HC) Chew 1 Tablet (81 mg) by mouth once daily with a meal. 0 4 Active metFORMIN (GLUCOPHAGE) 1,000 mg tabletIndication s:Type 2 diabetes mellitus without complication, without long-term current use of insulin (HC) Take 1 Tablet (1,000 mg) by mouth two times daily with meals. 60 Tablet 0 3 024 Discontinued potassium chloride (K-TAB) 10 mEq extended-release tablet Take 10 mEq by mouth once daily with a meal. 0 024 Discontinued(Ph armacist change per medication history (E-cancel not sent)) aspirin chewable 81 mg chewable tablet Chew 324 mg by mouth one time. 0 024 Discontinued Active Problems Problem Noted Date Diagnosed Date Severe aortic stenosis 04/20/2023 Coronary artery disease invo [place]ving [place] coronary artery of [place] heart without angina pectoris 04/20/2023 Chronic systolic congestive heart failure 2022 Stenosis of cervical spine 03/09/2022 Overview: surgery 03/04/22 Pulmonary emphysema 09/10/2020 Bicuspid aortic valve 03/24/2020 Obstructive sleep apnea 11/20/2018 Psoriasis 08/11/2015 Type 2 diabetes mellitus wit hout complication, without long-term current use of insulin 11/01/2012 Overview: Dx 1997 Follow up surgery. left shou lder open revision massive RCR, subscapularis repair 08/25/11. 11/30/2011 left shoulder rotator cuff tear 05/11/2011 left shoulder subscapularis tear 05/11/2011 left shoulder coracoid impingement 05/11/2011 left long head biceps rupture 05/11/2011 Hypomagnesemia 03/09/2011 Liver cyst 05/27/2010 Overview: Abdominal US 05/27/2010 - Small hypoechoic lesion in the liver measuring 1.2 cm in maximum dimension has not changed significantly from 10/31/2008. Abdominal US 10/2008 - 1 cm liver cyst in R lobe Systolic murmur 02/20/2010 Shortness of breath 02/20/2010 Rotator cuff tear 02/01/2010 Paroxysmal atrial fibrillation 10/23/2008 Overview: - 10/22/08: new onset, s/p DCCV in [place], [facility] with mild CAD - CHADS2 score 2 (DM, HTN) - Meds 04/30/2012: metoprolol, warfarin -presented with recurrent and highly symptomatic AF with RVR 04/29/2012. *Sotalol 120 mg BID initiated. Outpatient AF ablation planned. status post catheter atrial fibrillation ablation and empiric cavotricuspid isthmus ablation for atrial flutter on 05/21/2012 09/13/2012 - Sotalol 80 mg PO BID restarted 10/01/2015 - Sotalol stopped due to prolonged QT - 10/03/2015 - amiodarone started 12/15/2015 - status post repeat catheter ablation for atrial fibrillation Arteriosclerotic heart disease (ASHD) 10/23/2008 Overview: - 10/22/08 Cor angio: mild CAD Essential hypertension 10/22/2008 Overview: Meds 04/30/2012: losartan, metoprolol Norvasc added 10/11/18 Ingrowing nail 06/24/2008 Regular astigmatism 09/06/2006 Presbyopia 09/06/2006 Hypermetropia 09/06/2006 Obesity, Unspecified 12/04/2001 Overview: BMI 04/30/2012: >30 IMPOTENCE, ORGANIC ORIGIN 12/04/2001 Dyslipidemia Overview: Lipids 04/26/2010 - total 118, TG 215, HDL 36, LDL 39 Meds 04/30/2012: atorvastatin Nonrheumatic aortic valve stenosis Overview: Systolic murmur Echo 07/06/2011 Aortic sclerosis with mild aortic stenosis. Minimal mitral and tricuspid regurgitation. Concentric left ventricular hypertrophy with hyperdynamic systolic function Estimated ejection fraction of 70-75%. There are no wall motion abnormalities. Normal sized left atrium. Normal right-sided chambers. Resolved Problems Problem Noted Date Diagnosed Date Resolved Date Panlobular emphysema 05/04/2020 022 History of MRSA infection 02/26/2019 Elevated troponin 10/02/2015 05/25/2022 Diabetes mellitus type 2, uncomplicated 06/11/2015 03/30/2016 [employer] (current) use of anticoagulants 04/19/2012 10/15/2013 Overview: Warfarin - started 10/2008; indicated for a fib CHADS2=2 (DM, HTN); goal INR 2.0- 3.0; Anticoagulation monitoring, INR range 2-3 11/20/2010 03/07/2023 Overview: Warfarin - started 10/2008; indicated for a fib CHADS2=2 (DM, HTN) Fever 02/20/2010 05/25/2022 intermediate (current) use of anticoagulants 12/25/2008 11/20/2010 Overview: INR Goal Range: 2.0 - 3.0 Dyslipidemia 10/22/2008 02/20/2010 Chest pain 10/22/2008 05/25/2022 Sleep apnea syndrome 10/22/2008 019 Overview: Dx ~1996 On CPAP HYPERTENSION, ESSENTIAL NOS 12/04/2001 02/20/2010 DM, UNCOMPLICATED, TYPE II 05/15/2001 0 10/22/2008 Other psoriasis 05/25/2022 Unspecified sleep apnea 02/10 Type II or unspecified type diabetes mellitus without mention of complication, not stated as uncontrolled 11/01/2012 Overview: Diagnosed about 1996 Last Hgb A1c - 6.7 on 10/28/2011 Meds 04/30 - metformin, glipizide, pioglitazone, atorvastatin, losartan Encounters Date Type Department Care Team Description 07/01/2023 6:31 PM CASUALTY CLAIMS SUPERVISOR - 07/01/2023 10:57 PM CASUALTY CLAIMS SUPERVISOR Emergency [facility] Emergency Department [address] [place] [address] Mari Ibarra MD Fatigue, unspecified type (Primary Dx); Lightheadedness Discharge Disposition: Home Self Care 07/01/2023 Travel 06/29/2023 9:59 AM CASUALTY CLAIMS SUPERVISOR Anesthesia Event [facility] [address] [place] [address] Inna Molina MD 06/29/2023 9:15 AM CASUALTY CLAIMS SUPERVISOR - 06/29/2023 1:38 PM CASUALTY CLAIMS SUPERVISOR Surgery [facility] [address] [place] [address] Ahmet Levy MD LEFT CUTDOWN FEMORAL ARTERY; LEFT ENDARTERECTOMY; LEFT LOWER EXTREMITY ANGIOGRAM; ANGIOPLASTY 06/29/2023 5:54 AM CASUALTY CLAIMS SUPERVISOR - 06/30/2023 3:30 PM CASUALTY CLAIMS SUPERVISOR Hospital Encounter [facility] [address] [place] [address] Bella Benavidez MD Severe aortic stenosis (Primary Dx); Bicuspid aortic valve; Type 2 diabetes mellitus without complication, without long-term current use of insulin (HC); PAD (peripheral artery disease) (HC) Discharge Disposition: Home Self Care 06/29/2023 Travel 06/28/2023 Orders Only [facility] [address] [place] [address] Leon Broussard NP <No scans attached> 06/23/2023 10:00 AM CASUALTY CLAIMS SUPERVISOR Office Visit [facility] [address] [place] [address] Junior Castellanos MBBS CV Valve Est (VALVE EST:PRE-OP TAVR, LABS PRIOR,NEEDS EKG,[facility]ALTH[facility], 5M WALK,LETTER SENT, HJK//PCP: Mali Robertson PA-C/) 06/23/2023 9:30 AM CASUALTY CLAIMS SUPERVISOR Orders Only [facility] [address] [place] [address] Lab 06/23/2023 Telephone [facility] & [address] [facility] [address] [place] [address] TeePaul cota MD Results (CT results) 06/23/2023 Orders Only [facility] [address] [place] [address] Junior Castellanos MBBS <No scans attached> 06/23/2023 Travel 06/08/2023 Telephone [facility] [address] [place] [address] Bella Benavidez MD Surgery Scheduled (TAVR scheduling. ) 06/06/2023 Telephone [facility] [address] [place] [address] Bella Benavidez MD Health Maintenance Update (Dental Clearance Update) 06/02/2023 Telephone [facility] [address] [address] Bella Benavidez MD Health Maintenance Update (Schedule TAVR) 06/02/2023 Telephone [facility] [address] [address] Bella Benavidez MD Health Maintenance Update 05/30/2023 Refill [facility] [address] [place] [address] Dexetr Lofton MD Refill Request (Metformin) 05/23/2023 Telephone [facility] [address] [address] Bella Benavidez MD Health Maintenance Update (Post valve conference discussion /) 05/16/2023 3:30 PM CASUALTY CLAIMS SUPERVISOR Office Visit [facility] [address] [address] Ethel Salcido, Ronaldo Mcdaniel MD CV General Cardiology Est (ref: Carlito with CT prior//PCP: Mali Robertson PA-C/) 05/16/2023 1:55 PM CASUALTY CLAIMS SUPERVISOR - 05/16/2023 11:59 PM CASUALTY CLAIMS SUPERVISOR Hospital Encounter [facility] [address] [place] [address] Bella Benavidez MD Severe aortic stenosis 05/16/2023 Travel 05/15/[address] [facility] [address] [place] [address] Fatuma De Oliveira, ROSA 04/21/2023 Telephone [facility] [address] [address] Bella Benavidez MD Imaging (Results/findings on recent CT scan ) 04/20/2023 3:00 PM CASUALTY CLAIMS SUPERVISOR Office Visit [address] [place] [address] Bella Benavidez MD Consult; CV Valve New (TAVR) 04/20/2023 Telephone [facility] [address] [facility] [address] [place] [address] Bella Benavidez MD Appointment 04/19/2023 2:30 PM CASUALTY CLAIMS SUPERVISOR Office Visit [facility] at [address] [address] Abad Guaman MD Follow Up (yearly, Nonrheumatic aortic valve stenosis //Needs surgery clearance ) 04/19/[address] [place] [address] Abad Guaman MD Appointment 04/19/2023 Travel 04/14/2023 8:00 AM CDT Ancillary Procedure [facility] [address] [place] [address] 04/14/2023 Travel 04/13/2023 Transcribe Orders [facility] [address] [address] Mali Robertson PA-C 04/12/2023 Orders Only [facility] Scanner 1 scan: (1-Ord) [facility], 04/12/2023 from Last 3 Months Immunizations Name Administration Dates Next Due COVID-19 vaccine (Moderna 100mcg/0.5mL) THIERRY CALDERON 08/19/2020,07/22/2020 COVID-19 vaccine (Pfizer-Bio NTech 30mcg/0.3mL) 12YO+ BIVALENT THIERRY CALDERON 05/10/2022 HepA-HepB (Twinrix) 08/19/2003 Hepatitis B (Adult) 11/13/2014,05/15/2014,2013 Influenza, IIV3 (Age 6-35 mos) 04/22/2011 Influenza, IIV3 (Age >=3 years) 06/06/20 13,02/24/2012,04/22/2011,2007,04/23/2007,03/31/2004,04/11/2003 Influenza, IIV4 02/26/2019, 7,03/30/2016,2013 Influenza, Inactivated AIIV4 (Age 65+ Years) Preserv Free 03/09/2022,04/29/2021,02/26/2020 Pneumococcal Conj 20-valent (Prevnar 20) 05/25/2022 Pneumococcal Poly,23-Valent (Pneumovax) 04/11/2003 Td (Age >=7 Years) 08/19/2003 Tdap 12/10/2013 Family History Medical History Relation Name Comments Cancer Brother 1 lung Diabetes Brother 1 type 1 Heart attack Brother 2 Heart Disease Father d 85 yo [place] aft er hip fracture Arthritis Mother Heart Disease Mother A fib Hypertension Mother at 92 Other Other Factor V Leiden Diabetes Sister 1 dx'ed at 46 Other Sister 2 MS Cancer-breast Sister 3 Relation Name Status Comments Brother 1 Brother 2 Father Mother Other Sister 1 Sister 2 Sister 3 Social History Tobacco Use Types Packs/Day Years Used Date Smoking Tobacco: Former Cigarettes 1 17 1 970 - 06/12/1986 Smokeless Tobacco: Never Tobacco Cessation:Counseling Given: Yes Alcohol Use Standard Drinks/Week Comments Yes 0 (1 standard drink = 0.6 oz pur e alcohol) Rarely a beer PHQ-2 Answer Date Recorded PHQ-2 TOTAL SCORE 2 09/10/2020 Social Connections Answer Date Recorded Frequency of Communication with Friends and Fami ly 0 06/29/2023 Financial Resource Strain Answer Date R ecorded Difficulty of Paying Living Expenses 3 06/29/2023 Difficulty of Paying Living Expenses Not on file 06/29/2023 Food Insecurity Answer Date Recorded Worried About Running Out of Food in the Last Ye ar 1 06/29/2023 Transportation Needs Answer Date Record ed Lack of Transportation (Medical) 1 06/29/2023 Housing Stability Answer Date Recorded Unable to Pay for Housing in the Last Year 1 06/29/2023 Sex and Gender Information Value Date Recorded Sex Assigned at Not on file Gender Identity Not on file Sexual Orientation Not on file Obstetrics History Last Filed Vital Signs Vital Sign Reading Time Taken Comments Blood Pressure 125/69 07/01/2023 10:30 PM CASUALTY CLAIMS SUPERVISOR Pulse 82 07/01/2023 10:30 PM CASUALTY CLAIMS SUPERVISOR Temperature 36.9 ??C (98.5 ??F) 07/01/2023 6:27 PM CS T Respiratory Rate 16 07/01/2023 10:30 PM CASUALTY CLAIMS SUPERVISOR Oxygen Saturation 98% 07/01/2023 10:30 PM CASUALTY CLAIMS SUPERVISOR Inhaled Oxygen Concentration - - Weight 78.2 kg (172 lb 6.4 oz) 07/01/2023 6:27 P M CASUALTY CLAIMS SUPERVISOR Height 170.2 cm (5' 7) 07/01/2023 6:27 PM CASUALTY CLAIMS SUPERVISOR Body Mass Index 27 07/01/2023 6:27 PM CASUALTY CLAIMS SUPERVISOR Plan of Treatment Upcoming Encounters Date Type Department Care Team (Late st Contact Info) Description 07/26/2023 8:00 AM CASUALTY CLAIMS SUPERVISOR Orders Only [facility] [address] [place] [address] 07/28/2023 2:20 PM CASUALTY CLAIMS SUPERVISOR Orders Only [facility] [address] [phone] 07/28/2023 2:30 PM CASUALTY CLAIMS SUPERVISOR Appointment [facility] [address] [place] [address] 07/28/2023 4:30 PM CASUALTY CLAIMS SUPERVISOR Office Visit [facility] [address] [phone] Junior Castellanos MBBS [address] [address] 08/16/2023 1:00 PM CASUALTY CLAIMS SUPERVISOR Appointment [facility] [address] [place] [address] 08/16/2023 2:00 PM CASUALTY CLAIMS SUPERVISOR Office Visit [facility] [address] [place] [address] Ahmet Levy MD [address] [address] Goals Goal Patient Goal Type Associated Problems Recent Progress Patient-Stated? Author BLOOD PRESSURE - MAINTAINS BP less than 140/90 Blood Pressure No Arya Stone MD Medical Devices Implanted Type Area Barrelhead Inspector Device Identifier Shelf Expiration Date Model / Serial / Lot [id number] e Canclls Crushed 60cc [] Implanted:Qty: 1 on 08/22/2006 at [facility] Explanted:at [facility] (Quantity not on file) Spine Allosource 05/17/2011 [id number]# / [id number] / [id number] e Canclls Crushed 30cc [] Implanted:Qty: 1 on 08/22/2006 at [facility] Explanted:at [facility] (Quantity not on file) Spine Allosource 11/16/2010 [id number]# / [id number] / Vesna Dayanara [id number] - [id number] Implanted:Qty: 6 on 08/22/2006 at [facility] Spine HOWMEDICA [id number] / / Screw Polyaxial 6.5x45mm - [id number] Implanted:Qty: 6 on 08/22/2006 at [facility] Spine [employer] [id number]# / / Marin Dayanara Rad 70mm 108mm Radius - [id number] Implanted:Qty: 2 on 08/22/2006 at [facility] Spine [employer] [id number] / / Wedge Tag Acufex 3.7mm - [id number] Implanted:Qty: 3 on 08/25/2011 at [facility] Left: Shoulder [employer] [id number]# / / [id number] Screw Cerv Ant 4x15mm [place] Translational Va Slf Drill - [id number] Implanted:Qty: 3 on 03/04/2022 by Donald Alba MD at [facility] N/A: Spine Medtronic Spine/Ortho [id number] / / Plate Cerv 1lvl 25mm [place] Vision Elite Ant - [id number] Implanted:Qty: 1 on 03/04/2022 by Donald Alba MD at [facility] N/A: Spine Medtronic Spine/Ortho [id number] / / [id number] e Matrix 1cc Assonet Plus Paste Dbm Implanted:Qty: 1 on 03/04/2022 by Donald Alba MD at [facility] Explanted:at [facility] (Quantity not on file) N/A: Spine Medtronic Spine/Ortho 10/12/2023 [id number] / [id number] / [id number] Spinal Graft Block Robert Implanted:Qty: 1 on 03/04/2022 by Donald Alba MD at [facility] Explanted:at [facility] (Quantity not on file) N/A: Spine Medtronic Spine/Ortho 02/24/2024 [id number] / [id number] / Screw Cerv Ant 4x13mm [place] [employer] Slf Drill - [id number] Implanted:Qty: 1 on 03/04/2022 by Donald Alba MD at [facility] N/A: Spine Medtronic Spine/Ortho [id number] / / Tissue Pericardium 0.8x8cm Photofix Bovine - [id number] Implanted:Qty: 1 on 06/29/2023 by Ahmet Levy MD at [facility] Left: Groin [employer]ife Inc 02/03/2025 [id number] / / [id number] Description:CryoLife PhotoFi x Decellularized Bovine Pericardium 0.8cm x 8cm; Lot Number [id number]; Reference Number [id number]; Implanted to the left groin by Dr. Levy on 06/29/2023 Procedures Procedure Name Priority Date/Time Associated Diagnosis Comments XR CHEST 1 VIEW PORTABLE STAT 07/01/2023 9:16 PM CASUALTY CLAIMS SUPERVISOR US ARTERIAL LOWER EXTREMITY PSEUDOANEURYSM LEFT STAT 07/01/2023 8:20 PM CASUALTY CLAIMS SUPERVISOR LACTATE SCREEN VENOUS ISTAT W QUEEN Timed 07/01/2023 7:50 PM CASUALTY CLAIMS SUPERVISOR TYPE & SCREEN STAT 07/01/2023 7:41 PM CASUALTY CLAIMS SUPERVISOR TROPONIN T (HS) ONE TIME Timed 07/01/2023 7:41 PM CASUALTY CLAIMS SUPERVISOR PROTIME-INR STAT 07/01/2023 7:41 PM CASUALTY CLAIMS SUPERVISOR EXTRA TUBE QUEEN ON ICE STAT 07/01/2023 7:40 PM CASUALTY CLAIMS SUPERVISOR ISTAT LACTATE SCREEN VENOUS STAT 07/01/2023 7:40 PM CASUALTY CLAIMS SUPERVISOR BASIC METABOLIC PANEL STAT 07/01/2023 6:47 PM CASUALTY CLAIMS SUPERVISOR TROPONIN T (HS) ACUTE W/2HR REFLEX STAT 07/01/2023 6:47 PM CASUALTY CLAIMS SUPERVISOR PRO-BNP STAT 07/01/2023 6:47 PM CASUALTY CLAIMS SUPERVISOR CBC W PLT NO DIFF STAT 07/01/2023 6:4 6 PM CASUALTY CLAIMS SUPERVISOR EKG 12 LEAD STAT 07/01/2023 6:28 PM CASUALTY CLAIMS SUPERVISOR GLUCOSE METER Timed 06/30/2023 10:57 AM CASUALTY CLAIMS SUPERVISOR SCAN-CARDIAC STRIP 06/30/2023 10:36 AM CASUALTY CLAIMS SUPERVISOR MAGNESIUM Early AM 06/30/2023 8:00 AM CASUALTY CLAIMS SUPERVISOR BASIC METABOLIC PANEL Early AM 06/30/2023 8:00 AM CASUALTY CLAIMS SUPERVISOR CBC W PLT NO DIFF Early AM 06/30/2023 7:5 9 AM CASUALTY CLAIMS SUPERVISOR GLUCOSE METER Timed 06/30/2023 7:31 AM CASUALTY CLAIMS SUPERVISOR EKG 12 LEAD SHEN 06/30/2023 6:22 AM CASUALTY CLAIMS SUPERVISOR SCAN-CARDIAC STRIP 06/30/2023 4: 01 AM CASUALTY CLAIMS SUPERVISOR GLUCOSE METER Timed 06/29/2023 9:40 PM CASUALTY CLAIMS SUPERVISOR HEMOGLOBIN Today 06/29/2023 5:52 PM CASUALTY CLAIMS SUPERVISOR GLUCOSE METER Timed 06/29/2023 5:44 PM CASUALTY CLAIMS SUPERVISOR GLUCOSE METER Timed 06/29/2023 4:46 PM CASUALTY CLAIMS SUPERVISOR SCAN-CARDIAC STRIP 06/29/2023 3: 55 PM CASUALTY CLAIMS SUPERVISOR ECHO TTE LIMITED WO CONTRAST W COLOR W LTD DOPPLER Routine 06/29/2023 3:54 PM CASUALTY CLAIMS SUPERVISOR EKG 12 LEAD STAT 06/29/2023 2:11 PM CASUALTY CLAIMS SUPERVISOR HCHG ACTIVATED CLOTTING TM CV Timed 06/29/2023 1:26 PM CASUALTY CLAIMS SUPERVISOR HEMOGLOBIN STAT 06/29/2023 1:19 PM CASUALTY CLAIMS SUPERVISOR GLUCOSE METER Timed 06/29/2023 1:04 PM CASUALTY CLAIMS SUPERVISOR XR PELVIS 1 VIEW PORTABLE Routine 06/29/2023 12:07 PM CASUALTY CLAIMS SUPERVISOR TRANSFUSE RBC (NURSE COMMUNICATION ORDER) STAT 06/29/2023 11:32 AM CASUALTY CLAIMS SUPERVISOR COMPREHENSIVE BLOOD GAS ARTERIAL Timed 06/29/2023 11:22 AM CASUALTY CLAIMS SUPERVISOR RBC W/O TYPE & SCREEN STAT 06/29/2023 11:11 AM CASUALTY CLAIMS SUPERVISOR RED BLOOD CELLS EA UNIT STAT 06/29/2023 11:09 AM CASUALTY CLAIMS SUPERVISOR RED BLOOD CELLS EA UNIT STAT 06/29/2023 11:09 AM CASUALTY CLAIMS SUPERVISOR ENDOTRACHEAL TUBE Routine 06/29/2023 10:10 AM CASUALTY CLAIMS SUPERVISOR ENDOTRACHEAL TUBE Routine 06/29/2023 10:10 AM CASUALTY CLAIMS SUPERVISOR ENDOTRACHEAL TUBE Routine 06/29/2023 10:10 AM CASUALTY CLAIMS SUPERVISOR ENDOTRACHEAL TUBE Routine 06/29/2023 10:10 AM CASUALTY CLAIMS SUPERVISOR CUTDOWN FEMORAL ARTERY Class A Emergency 06/29/2023 9:44 AM CASUALTY CLAIMS SUPERVISOR Perclose failure HCHG ACTIVATED CLOTTING TM CV Timed 06/29/2023 9:05 AM CASUALTY CLAIMS SUPERVISOR CVL TAVR Routine 06/29/2023 8:49 AM CASUALTY CLAIMS SUPERVISOR RBC W/O TYPE & SCREEN STAT 06/29/2023 7:38 AM CASUALTY CLAIMS SUPERVISOR RED BLOOD CELLS EA UNIT STAT 06/29/2023 7:35 AM CASUALTY CLAIMS SUPERVISOR RED BLOOD CELLS EA UNIT STAT 06/29/2023 7:35 AM CASUALTY CLAIMS SUPERVISOR TYPE & SCREEN Preop 06/29/2023 6:20 AM CASUALTY CLAIMS SUPERVISOR PROTIME-INR STAT 06/29/2023 6:20 AM CASUALTY CLAIMS SUPERVISOR GLUCOSE, FASTING Preop 06/29/2023 6:20 AM CASUALTY CLAIMS SUPERVISOR SCAN-CARDIAC STRIP 06/29/2023 12:00 AM CASUALTY CLAIMS SUPERVISOR EKG 12 LEAD Routine 06/23/2023 9:43 AM CASUALTY CLAIMS SUPERVISOR Aortic valve stenosis, etiology of cardiac valve disease unspecified [employer]NC 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 QUESTION TEST Routine 06/23/2023 9:42 AM CASUALTY CLAIMS SUPERVISOR Pre-op testing TYPE & SCREEN Routine 06/23/2023 9:42 AM CASUALTY CLAIMS SUPERVISOR Pre-op testing PROTIME-INR Routine 06/23/2023 9:42 AM CASUALTY CLAIMS SUPERVISOR Pre-op testing ALBUMIN Routine 06/23/2023 9:42 AM CASUALTY CLAIMS SUPERVISOR Pre-op testing CBC W PLT NO DIFF Routine 06/23/2023 9:4 2 AM CASUALTY CLAIMS SUPERVISOR Pre-op testing BASIC METABOLIC PANEL Routine 06/23/2023 9:42 AM CASUALTY CLAIMS SUPERVISOR Pre-op testing CTA CHEST ABD PELVIS TAVR - DUAL READ Routine 05/16/2023 2:46 PM CASUALTY CLAIMS SUPERVISOR Severe aortic stenosis CREATININE,ISTAT Routine 05/16/2023 2:23 PM CASUALTY CLAIMS SUPERVISOR HEMATOCRIT/HGB,ISTAT Routine 05/16/2023 2:18 PM CASUALTY CLAIMS SUPERVISOR EKG 12 LEAD Routine 04/20/2023 Paroxysmal atrial fibrillation (HC) ECHO TTE COMPLETE WO CONTRAST Routine 04/14/2023 8:45 AM CDT Murmur SCAN-LABORATORY REPORT 04/12/2023 12:00 AM CDT from Last 3 Months Results * XR CHEST 1 VIEW PORTABLE (07/01/2023 9:16 PM CASUALTY CLAIMS SUPERVISOR) Anatomical Region Laterality Modality HEART, THORAX, CHEST Digital Rad iography 07/01/2023 9:19 PM CASUALTY CLAIMS SUPERVISOR Narrative 07/01/2023 9:19 PM CASUALTY CLAIMS SUPERVISOR For Patients: ??As a result of the Cures Act, medical imaging exams and procedure reports are released immediately into your electronic medical record. ??You may view this report before your referring provider. ??If you have questions, please contact your health care provider. Indication: Shortness of breath. Technique: Chest 1 view. Comparison: January 31, 2020. Findings/Impression: Cardiovascular and mediastinum: Heart size and vasculature are normal in caliber and appearance. Lungs and pleural space: Patchy bilateral infiltrates suggesting nonspecific pneumonitis or pulmonary edema. No effusions and no pneumothorax. Bones and soft tissues: No acute findings. Dictated by Joseluis Wolfe MD @ Jul 01 2023 ??9:19PM (Electronically Signed) ?? Procedure Note Joseluis Wolfe MD - 07/01/2023 For Patients: As a result of the Cures Act, medical imagingexams and procedure reports are released immediately into your electronicmedical record. You may view this report before your referring provider.If you have questions, please contact your health care provider. Indication: Shortness of breath. Technique: Chest 1 view. Comparison: January 31, 2020. Findings/Impression: Cardiovascular and mediastinum: Heart size and vasculature are normal incaliber and appearance. Lungs and pleural space: Patchy bilateral infiltrates suggestingnonspecific pneumonitis or pulmonary edema. No effusions and nopneumothorax. Bones and soft tissues: No acute findings. Dictated by Joseluis Wolfe MD @ Jul 01 2023 9:19PM (Electronically Signed) Mari Ibarra MD GENERAL IMAG ING * US ARTERIAL LOWER EXTREMITY PSEUDOANEURYSM LEFT (07/01/2023 8:20 PM CASUALTY CLAIMS SUPERVISOR) Anatomical Region Laterality Modality LEG L Ultrasound 07/01/2023 8:36 PM CASUALTY CLAIMS SUPERVISOR Narrative 07/02/2023 11:12 AM CASUALTY CLAIMS SUPERVISOR For Patients: ??As a result of the Cures Act, medical imaging exams and procedure reports are released immediately into your electronic medical record. ??You may view this report before your referring provider. ??If you have questions, please contact your health care provider. Indication: Recent vascular procedure; eval for pseudoaneurysm. Comparison: None Technique: Duplex arterial examination of the left proximal thigh performed. Findings: No fluid collection or abscess. No pseudoaneurysm. Normal velocities within the common femoral artery, proximal femoral artery and proximal deep femoral artery. No fistula. No thrombus. Impression: No pseudoaneurysm, hematoma or AVF. Dictated by Paul Simons MD @ 07/02/2023 11:12:50 AM (Electronically Signed) Procedure Note Paul Simons MD - 07/02/2023 For Patients: As a result of the Cures Act, medical imagingexams and procedure reports are released immediately into your electronicmedical record. You may view this report before your referring provider.If you have questions, please contact your health care provider. Indication: Recent vascular procedure; eval for pseudoaneurysm. Comparison: None Technique: Duplex arterial examination of the left proximal thigh performed. Findings: No fluid collection or abscess. No pseudoaneurysm. Normal velocitieswithin the common femoral artery, proximal femoral artery and proximaldeep femoral artery. No fistula. No thrombus. Impression: No pseudoaneurysm, hematoma or AVF. Dictated by Paul Simons MD @ 07/02/2023 11:12:50 AM (Electronically Signed) Mari Ibarra MD [place] * LACTATE SCREEN VENOUS ISTAT W QUEEN (07/01/2023 7:50 PM CASUALTY CLAIMS SUPERVISOR) Pathologist [facility] LACTATE VENOUS SCREEN ISTAT <1.8 <=2.0 07/01/2023 7:54 PM CASUALTY CLAIMS SUPERVISOR [facility] LACTATE SCREEN VENOUS POCT 1.5 <=2.0 07/01/2023 7:54 PM CASUALTY CLAIMS SUPERVISOR [facility] Blood BLOOD SPECIMEN / Unknown 07/01/2023 7:50 PM CASUALTY CLAIMS SUPERVISOR 07/01/2023 7:54 PM CASUALTY CLAIMS SUPERVISOR Mari Ibarra MD LABORATORY [facility] [address] [place] [address], [place] * (ABNORMAL) TROPONIN T (HS) ONE TIME (07/01/2023 7:41 PM CASUALTY CLAIMS SUPERVISOR) [facility] TROPONIN T HS 74(H) 6-15 ng/L ng/L 07/01/2023 8:14 PM CASUALTY CLAIMS SUPERVISOR [facility] Blood BLOOD SPECIMEN / Unknown Butterfly / Unknown 07/01/2023 7:41 PM CASUALTY CLAIMS SUPERVISOR 07/01/2023 7:49 PM CASUALTY CLAIMS SUPERVISOR Anw Ed Triage CHEMISTRY [facility] [address] [place] [address], [place] * TYPE AND SCREEN ONLY (07/01/2023 7:41 PM CASUALTY CLAIMS SUPERVISOR) Only the most recent of3 resultswithin the time period is included. Pathologist [facility] ABORH A Rh Positive 07/01/2023 10:05 PM CASUALTY CLAIMS SUPERVISOR [facility] LAB BLOOD BANK ANTIBODY SCREEN Negative Negative 07/01/2023 10:05 PM CASUALTY CLAIMS SUPERVISOR [facility] LAB BLOOD BANK SPECIMEN EXPIRATION DATE/TIME 07/04/23 23:59 07/01/2023 10:05 PM CASUALTY CLAIMS SUPERVISOR [facility] LAB BLOOD BANK Blood BLOOD SPECIMEN / Unknown Butterfly / Unknown 07/01/2023 7:41 PM CASUALTY CLAIMS SUPERVISOR 07/01/2023 9:29 PM CASUALTY CLAIMS SUPERVISOR Mari Ibarra MD BLOOD BANK [facility] LAB BLOOD BANK [address] [place] [address], [place] [phone] * PROTIME-INR (07/01/2023 7:41 PM CASUALTY CLAIMS SUPERVISOR) Only the most recent of3 resultswithin the time period is included. INR 1.1 <1.3 07/01/2023 8:08 PM CASUALTY CLAIMS SUPERVISOR [facility] PROTIME 11.8 10.3 - 12.3 sec 07/01/2023 8:08 PM CASUALTY CLAIMS SUPERVISOR [facility] Blood BLOOD SPECIMEN / Unknown Butterfly / Unknown 07/01/2023 7:41 PM CASUALTY CLAIMS SUPERVISOR 07/01/2023 7:49 PM CASUALTY CLAIMS SUPERVISOR Narrative [facility] - 07/01/2023 8:08 PM CASUALTY CLAIMS SUPERVISOR ?Therapeutic Range 2.0-3.0 for most anticoagulated patients 2.5-3.5 or 4.0 for high risk patients The INR is only used for patients on stable oral anticoagulant therapy. It makes no significant contribution to the diagnosis or treatment of patients whose Protime is prolonged for other reasons. INR results are increased when heparin levels exceed 1.0 U/mL, which corresponds to an aPTT >125 seconds if the patient is on UFH. Mari Ibarra MD HEMATOLOGY [facility] [address] [place] [address], [place] * EXTRA TUBE QUEEN ON ICE (07/01/2023 7:40 PM CASUALTY CLAIMS SUPERVISOR) Blood BLOOD SPECIMEN / Unknown Butterfly / Unknown 07/01/2023 7:40 PM CASUALTY CLAIMS SUPERVISOR 07/01/2023 7:51 PM CASUALTY CLAIMS SUPERVISOR Mari Ibarra MD LABORATORY [facility] [address] [place] [address], [place] * (ABNORMAL) TROPONIN T (HS) ACUTE W/2HR REFLEX (07/01/2023 6:47 PM CASUALTY CLAIMS SUPERVISOR) TROPONIN T HS 71(H) 6-15 ng/L ng/L 07/01/2023 7:25 PM CASUALTY CLAIMS SUPERVISOR [facility] Blood BLOOD SPECIMEN / Unknown Venipuncture / Unknown 07/01/2023 6:47 PM CASUALTY CLAIMS SUPERVISOR 07/01/2023 6:52 PM CASUALTY CLAIMS SUPERVISOR Narrative [facility] - 07/01/2023 7:25 PM CASUALTY CLAIMS SUPERVISOR hs-cTnT (Elecsys Troponin T Gen 5) concentration (s) above the sex-specific 99th percentile (16 ng/L or greater for males or 11 ng/L or greater for females) are indicative of myocardial injury. If initial hs-cTnT <=100 ng/L at presentation, a 0h/2h ABSOLUTE (ng/L) delta change (rising or falling) of >=10 ng/L suggests a significant change, whereas a 0h/2h delta change <=3 ng/L suggests no significant change. If initial hs-cTnT >100 ng/L at presentation, a 0h/2h/ RELATIVE (percent, %) delta change of 20% is suggested to distinguish patients with acute vs. chronic myocardial injury. There are multiple etiologies that can cause hs-cTnT increases above the 99th percentile (myocardial injury) other than acute myocardial infarction. Clinical context and careful clinical evaluation are critical for diagnosis and risk-stratification. The diagnosis of acute myocardial infarction requires a rising and/or falling pattern in hs-cTnT concentrations with at least one value above the sex-specific 99th percentile PLUS at least one of the following clinical criteria: ischemic symptoms, new or presumed new significant ST-T wave changes or new LBBB, development of pathological Q waves, imaging evidence of new loss of viable myocardium or new regional wall motion abnormality, or identification of intracoronary atherothrombosis or an acute angiographic culprit on coronary angiography. In appropriate low-risk patients with a non-ischemic electrocardiogram without active chest pain with a symptom onset >3-hours without recurrence, a single initial hs-cTnT<6 ng/L identifies patient with a very low risk in emergency department patient population. An Ed Triage CHEMISTRY Performing Organization Address [facility]/ZIP Co de Phone Number [employer] [facility] [address] [place] [address], * (ABNORMAL) PRO-BNP (07/01/2023 6:47 PM CASUALTY CLAIMS SUPERVISOR) PRO-BNP 372(H) <125 pg/mL 07/01/2023 7:26 PM CASUALTY CLAIMS SUPERVISOR [facility] [employer] [facility] Blood BLOOD SPECIMEN / Unknown Venipuncture / Unknown 07/01/2023 6:47 PM CASUALTY CLAIMS SUPERVISOR 07/01/2023 6:52 PM CASUALTY CLAIMS SUPERVISOR Narrative [facility] - 07/01/2023 7:26 PM CASUALTY CLAIMS SUPERVISOR The following cut-points have been suggested for the use of proBNP for the diagnostic evaluation of heart failure (HF) in patient with acute dyspnea. Patients with eGFR >= 60 Diagnosis (rule in CHF) ? <50 Years Old ?450 pg/mL 50 - 75 Years Old ?900 pg/mL >75 Years Old ? 1800 pg/mL Exclusion (rule out CHF) Age Independent ?300 pg/mL A cutoff of 1200 pg/mL for patients with an eGFR <60 yields a diagnostic sensitivity of 89% and specificity of 72% for acute congestive heart failure. ? An Ed Triage SEND OUTS Performing Organization Address [facility]/ZIP Co de Phone Number [facility] [address] [place], [place] [id number] [place] [address] * (ABNORMAL) BASIC METABOLIC PANEL (07/01/2023 6:47 PM CASUALTY CLAIMS SUPERVISOR) Only the most recent of3 resultswithin the time period is included. SODIUM 140 136 - 145 mmol/L 07/01/2023 7:25 PM [facility] LAB[facility] POTASSIUM 4.3 3.5 - 5.1 mmol/L 07/01/2023 7:25 PM [facility] CHLORIDE 103 98 - 107 mmol/L 07/01/2023 7:25 PM [facility] CO2,TOTAL 27 22 - 29 mmol/L 07/01/2023 7:25 PM [facility] ANION GAP 10 5 - 18 07/01/2023 7:25 PM [facility] LAB[facility] GLUCOSE 136(H) 70 - 99 mg/dL 07/01/2023 7:25 PM [facility] CALCIUM 9.1 8.8 - 10.2 mg/dL 07/01/2023 7:25 PM [facility] BUN 18 8 - 23 mg/dL 07/01/2023 7:25 PM [facility] CREATININE 0.97 0.70 - 1.20 mg/dL 07/01/2023 7:25 PM [facility] LAB[facility] BUN/CREAT RATIO 19 10 - 20 4 7:25 PM [facility] LAB[facility] eGFR 85(L) >90 mL/min/1.7 3m2 07/01/2023 7:25 PM [facility] Comment:As of 2021, eG FR is calculated by the CKD-EPI creatinine equation without race adjustment. ??eGFR can be influenced by muscle mass, exercise, and diet. ??The reported eGFR is an estimation only and is only applicable if the renal function is stable. Blood BLOOD SPECIMEN / Unknown Venipuncture / Unknown 07/01/2023 6:47 PM CASUALTY CLAIMS SUPERVISOR 07/01/2023 6:52 PM CASUALTY CLAIMS SUPERVISOR Anw Ed Triage CHEMISTRY [facility] [address] [place] [address], [place] * (ABNORMAL) CBC W PLT NO DIFF (07/01/2023 6:46 PM CASUALTY CLAIMS SUPERVISOR) Only the most recent of3 resultswithin the time period is included. WHITE BLOOD COUNT 10.0 4.5 - 11.0 thou/cu mm 07/01/2023 6:55 PM [facility] LAB[facility] RED BLOOD COUNT 3.28(L) 4.30 - 5.90 mil/cu mm 07/01/2023 6:55 PM [facility] LAB[facility] HEMOGLOBIN 9.2(L) 13.5 - 17.5 g/dL 07/01/2023 6:55 PM [facility] LAB[facility] HEMATOCRIT 27.6(L) 37.0 - 53.0 % 07/01/2023 6:55 PM [facility] LAB[facility] MCV 84 80 - 100 fL 07/01/2023 6:55 PM CASUALTY CLAIMS SUPERVISOR [facility] TR[facility] LABORATORY MCH 28.0 26.0 - 34.0 pg 07/01/2023 6:55 PM CASUALTY CLAIMS SUPERVISOR [facility] TR[facility] LAB[facility]ATORY MCHC 33.3 32.0 - 36.0 g/dL 07/01/2023 6:55 PM [facility] LAB[facility] RDW 13.9 11.5 - 15.5 % 07/01/2023 6:55 PM [facility] PLATELET COUNT 280 140 - 440 thou/cu mm 07/01/2023 6:55 PM CASUALTY CLAIMS SUPERVISOR [facility] TR[facility] LABORATORY MPV 9.6 6.5 - 11.0 fL 07/01/2023 6:55 PM [facility] LAB[facility] NRBC 0.0 % 07/01/2023 6:55 PM [facility] LAB[facility] ABS NRBC 0.0 thou /cu mm 07/01/2023 6:55 PM [facility] Blood BLOOD SPECIMEN / Unknown Venipuncture / Unknown 07/01/2023 6:46 PM CASUALTY CLAIMS SUPERVISOR 07/01/2023 6:52 PM CASUALTY CLAIMS SUPERVISOR Narrative [facility] - 07/01/2023 6:55 PM CASUALTY CLAIMS SUPERVISOR RN to order if patient presents with shortness of breath or wheezing. An Ed Triage HEMATOLOGY Performing Organization Address [facility] de Phone Number [facility] [address] [address], [place] * EKG 12 LEAD (07/01/2023 6:28 PM CASUALTY CLAIMS SUPERVISOR) Only the most recent of5 resultswithin the time period is included. Interpretation Sinus rhythm with Premature supraventricular complexes Left bundle branch block Abnormal ECG BEYOND NOW Ventricular Rate 90 BPM BEYOND NOW Atrial Rate 90 BPM BEYOND NOW P-R Interval 178 ms BEYOND NOW QRS Duration 128 ms BEYOND NOW QT 396 ms BEYOND NOW QTc 484 ms BEYOND NOW P [place] 72 degrees BEYOND NOW R [place] 72 degrees BEYOND NOW T [place] 131 degrees BEYOND NOW 07/01/2023 6:28 PM CASUALTY CLAIMS SUPERVISOR 07/02/2023 2:37 PM CASUALTY CLAIMS SUPERVISOR An Ed Triage EKG ORD Performing Organization Address [facility] Phone Number BEYOND NOW [place], [place] * (ABNORMAL) GLUCOSE METER (06/30/2023 10:57 AM CASUALTY CLAIMS SUPERVISOR) Only the most recent of6 resultswithin the time period is included. Pathologist [facility] GLUCOSE METER 153(H) 65 - 100 mg/dL 06/30/2023 10:58 AM CASUALTY CLAIMS SUPERVISOR [facility] Blood BLOOD SPECIMEN / Unknown 06/30/2023 10:57 AM CASUALTY CLAIMS SUPERVISOR 06/30/2023 10:57 AM CASUALTY CLAIMS SUPERVISOR Bella Benavidez MD CHEMISTRY Performing Organization Address [facility] Co de Phone Number [facility] [address] [place] [phone], [place] * SCAN-CARDIAC STRIP (06/30/2023 10:36 AM CASUALTY CLAIMS SUPERVISOR) Scanner OTHER * MAGNESIUM (06/30/2023 8:00 AM CASUALTY CLAIMS SUPERVISOR) MAGNESIUM 1.6 1.6 - 2.4 mg/dL 06/30/2023 9:12 AM CASUALTY CLAIMS SUPERVISOR [facility] Blood BLOOD SPECIMEN / Unknown Venipuncture / Unknown 06/30/2023 8:00 AM CASUALTY CLAIMS SUPERVISOR 06/30/2023 8:07 AM CASUALTY CLAIMS SUPERVISOR Bella Benaviedz MD CHEMISTRY Performing Organization Address [facility] Co de Phone Number [facility] [address] [place] [address], [place] * SCAN-CARDIAC STRIP (06/30/2023 4:01 AM CASUALTY CLAIMS SUPERVISOR) Scanner OTHER * (ABNORMAL) HEMOGLOBIN (06/29/2023 5:52 PM CASUALTY CLAIMS SUPERVISOR) Only the most recent of2 resultswithin the time period is included. Pathologist [facility] HEMOGLOBIN 8.7(L) 13.5 - 17.5 g/dL 06/29/2023 6:09 PM CASUALTY CLAIMS SUPERVISOR [facility] MCV 83 80 - 100 fL 06/29/2023 6:09 PM CASUALTY CLAIMS SUPERVISOR [facility] Blood BLOOD SPECIMEN / Unknown Venipuncture / Unknown 06/29/2023 5:52 PM CASUALTY CLAIMS SUPERVISOR 06/29/2023 6:00 PM CASUALTY CLAIMS SUPERVISOR Junior NICOLAS HEMATOLOGY Performing Organization Address City/[facility]/ZIP Co de Phone Number [facility] [address] [place] [address], [place] * SCAN-CARDIAC STRIP (06/29/2023 3:55 PM CASUALTY CLAIMS SUPERVISOR) Scanner OTHER * ECHO TTE LIMITED WO CONTRAST W COLOR W LTD DOPPLER (06/29/2023 3:54 PM CASUALTY CLAIMS SUPERVISOR) AORTIC VALVE MEAN PG 11 mmHg LVEDD 4.7 cm EJECTION FRACTION 60 - 65% Anatomical Region Laterality Modality Ultrasound 06/29/2023 3:10 PM CASUALTY CLAIMS SUPERVISOR Narrative 06/29/2023 5:05 PM CASUALTY CLAIMS SUPERVISOR ECHOCARDIOGRAM VILMA UGARTE ?Accession#: ?? [id number] : ?1955 68 years Study Date: ?? 06/29/2023 3:10:34 PM Gender: M ? BP: ? 130/58 mmHg Height: 170.00 cm ? BSA: ?1.92 m? ? ? Weight: 80.00 kg ?Tech: ? ASHLEY ?Referring MD: LEON BROUSSARD Site: ? [facility] Reading Location: [facility] Patient Location: Inpatient. Procedure: Limited 2D , Color Doppler and Limited Spectral Doppler. Indication for study: S/P TAVR Cardiac Rhythm: Regular.Study quality: Final Impressions: Limited Echocardiogram performed 1. Normal LV size, mildly increased wall thickness, normal global systolic function with an estimated EF of 60 - 65%. 2. The aortic valve is 29mm Evolut Fx, no stenosis and no regurgitation.The aortic valve peak velocity is 2.3 m/s, the peak gradient is 21 mmHg, and the mean gradient is 11 mmHg. The aortic valve area is 2.63 cm? ? ? with a dimensionless index of 0.93. The stroke volume index is 62.8 ml/m? ? ?. 3. The mitral valve is sclerotic and mean mitral gradient 5 mmHg, mild mitral regurgitation. 4. No pericardial effusion. Chamber Sizes and Function Normal left ventricular size, mildly increased wall thickness, normal global systolic function with an estimated EF of 60 - 65%. Right ventricular cavity size is normal, global systolic RV function is normal. RV wall thickness is normal. Valves, RV Pressures and Diastolic Function The aortic valve is 29mm Evolut Fx, no stenosis and no regurgitation. The mitral valve is sclerotic and mean mitral gradient 5 mmHg, mild mitral regurgitation. The mitral valve peak velocity is 1.78 m/s and the mean gradient is 5.0 mmHg. The tricuspid valve is normal in structure. Tricuspid regurgitation is trace. Masses, Effusion, Shunts There is no pericardial effusion. The inferior vena cava is normal sized, respiratory size variation greater than 50%. MEASUREMENTS AND CALCULATIONS 2-D Measurements and LV Function: LVID (d) 4.7 cm LVOT diameter 1.9 cm IVS (d) ??1.1 cm HR ?46 bpm LVPW (d) 1.0 cm Diastology: Mitral E Peak 1.60 m/s A Peak 1.22 m/s E/A ?1.3 DT ? 228 msec Aortic Valve: Vmax ? 2.3 m/s ??AVINASH (V) ?? 2.29 cm? ? ? VTI ?0.46 m ?? AVINASH (I) ?? 2.63 cm? ? ? LVOT V max 1.9 m/s ??Max PG ?21 mmHg LVOT VTI ?? 0.42 m ?? Mean PG ?? 11 mmHg SV ? 120 ml ?? Dim Index 0.93 SV index ?? 63 ml/m? ? ? CO ?5.5 l/min ?CI ?2.9 l/min/m? ? ? Mitral Valve: MVA ? 3.3 cm? ? ? MV P 1/2 ??66 msec MV Mean G 5 mmHg . This study was interpreted by an [facility] accredited facility. ??Final ?? Procedure Note Roc Thakur MD - 06/29/2023 ECHOCARDIOGRAM VILMA UGARTE : 1955 68 years Study Date: 06/29/2023 3:10:34 PM Gender: M BP: 130/58 mmHg Height: 170.00 cm BSA: 1.92 m? ? ? Weight: 80.00 kg Tech: ASHLEY Harper MD: LEON BROUSSARD Site: [facility] Reading Location: [facility] Patient Location: Inpatient. Procedure: Limited 2D , Color Doppler and Limited Spectral Doppler. Indication for study: S/P TAVR Cardiac Rhythm: Regular.Study quality: Final Impressions: Limited Echocardiogram performed 1. Normal LV size, mildly increased wall thickness, normal globalsystolic function with an estimated EF of 60 - 65%. 2. The aortic valve is 29mm Evolut Fx, no stenosis and noregurgitation.The aortic valve peak velocity is 2.3 m/s, the peak gradientis 21 mmHg, and the mean gradient is 11 mmHg. The aortic valve area is2.63 cm? ? ? with a dimensionless index of 0.93. The stroke volume index is62.8 ml/m? ? ?. 3. The mitral valve is sclerotic and mean mitral gradient 5 mmHg, mildmitral regurgitation. 4. No pericardial effusion. Chamber Sizes and Function Normal left ventricular size, mildly increased wall thickness, normalglobal systolic function with an estimated EF of 60 - 65%. Rightventricular cavity size is normal, global systolic RV function is normal.RV wall thickness is normal. Valves, RV Pressures and Diastolic Function The aortic valve is 29mm Evolut Fx, no stenosis and no regurgitation. Themitral valve is sclerotic and mean mitral gradient 5 mmHg, mild mitralregurgitation. The mitral valve peak velocity is 1.78 m/s and the meangradient is 5.0 mmHg. The tricuspid valve is normal in structure.Tricuspid regurgitation is trace. Masses, Effusion, Shunts There is no pericardial effusion. The inferior vena cava is normal sized,respiratory size variation greater than 50%. MEASUREMENTS AND CALCULATIONS 2-D Measurements and LV Function: LVID (d) 4.7 cm LVOT diameter 1.9 cm IVS (d) 1.1 cm HR 46 bpm LVPW (d) 1.0 cm Diastology: Mitral E Peak 1.60 m/s A Peak 1.22 m/s E/A 1.3 DT 228 msec Aortic Valve: Vmax 2.3 m/s AVINASH (V) 2.29 cm? ? ? VTI 0.46 m AVINASH (I) 2.63 cm? ? ? LVOT V max 1.9 m/s Max PG 21 mmHg LVOT VTI 0.42 m Mean PG 11 mmHg SV 120 ml Dim Index 0.93 SV index 63 ml/m? ? ? CO 5.5 l/min CI 2.9 l/min/m? ? ? Mitral Valve: MVA 3.3 cm? ? ? MV P 1/2 66 msec MV Mean G 5 mmHg . This study was interpreted by an [facility] accredited facility. Final Leon Broussard KELLER MACHINE OPERATOR ECHO ORD * (ABNORMAL) ACTIVATED CLOTTING TIME [id number] ACT (06/29/2023 1:26 PM CASUALTY CLAIMS SUPERVISOR) Only the most recent of2 resultswithin the time period is included. ACTIVATED CLOTTING TIME, POCT 143(H) 74 - 125 sec 06/29/2023 3:03 PM CASUALTY CLAIMS SUPERVISOR [facility] Blood BLOOD SPECIMEN / Unknown 06/29/2023 1:26 PM CASUALTY CLAIMS SUPERVISOR 06/29/2023 3:03 PM CASUALTY CLAIMS SUPERVISOR Bella Benavidez MD H[facility]Y [facility] [address] [place] [address], [place] * XR PELVIS 1 VIEW PORTABLE (06/29/2023 12:07 PM CASUALTY CLAIMS SUPERVISOR) Anatomical Region Laterality Modality Pelvis Digital Radiogra phy 06/29/2023 12:3 5 PM CASUALTY CLAIMS SUPERVISOR Narrative 06/29/2023 12:35 PM CASUALTY CLAIMS SUPERVISOR For Patients: ??As a result of the Century Cures Act, medical imaging exams and procedure reports are released immediately into your electronic medical record. ??You may view this report before your referring provider. ??If you have questions, please contact your health care provider. Indication: Left femoral cutdown, no instrument counts were performed. Technique: Single AP view of the pelvis. Comparison: CT dated 05/16/2023. Findings: There are surgical clips overlying the left hip/groin. No metallic needle or additional surgical instrument visualized. There are right femoral arterial and venous catheters. Excreted contrast material is seen within the renal collecting systems and bladder. Lower lumbar laminectomy changes and L3-L5 posterior instrumented fusion hardware. Atherosclerotic arterial calcifications. Moderate left hip osteoarthritis. Impression: Left groin surgical clips without metallic needle visualized. Findings were discussed via telephone with operating room 8 staff on 06/29/2023 at 12:32 p.m. Dictated by Stephania Farrar MD @ 06/29/2023 12:35:19 PM (Electronically Signed) Procedure Note Stephania Farrar, DO - 06/29/2023 For Patients: As a result of the Cures Act, medical imagingexams and procedure reports are released immediately into your electronicmedical record. You may view this report before your referring provider.If you have questions, please contact your health care provider. Indication: Left femoral cutdown, no instrument counts were performed. Technique: Single AP view of the pelvis. Comparison: CT dated 05/16/2023. Findings: There are surgical clips overlying the left hip/groin. No metallic needleor additional surgical instrument visualized. There are right femoralarterial and venous catheters. Excreted contrast material is seen withinthe renal collecting systems and bladder. Lower lumbar laminectomy changesand L3-L5 posterior instrumented fusion hardware. Atherosclerotic arterialcalcifications. Moderate left hip osteoarthritis. Impression: Left groin surgical clips without metallic needle visualized. Findings were discussed via telephone with operating room 8 staff on06/29/2023 at 12:32 p.m. Dictated by Stephania Farrar MD @ 06/29/2023 12:35:19 PM (Electronically Signed) Ahmet Levy MD GENERAL IMAGING * TRANSFUSE RBC (NURSE COMMUNICATION ORDER) (06/29/2023 11:32 AM CASUALTY CLAIMS SUPERVISOR) Blood BLOOD SPECIMEN / Unknown Bella Benavidez MD NURSING BLOOD BANK * (ABNORMAL) COMPREHENSIVE BLOOD GAS ARTERIAL (06/29/2023 11:22 AM CASUALTY CLAIMS SUPERVISOR) PH, ARTERIAL 7.39 7.35 - 7.45 06/29/2023 11:22 AM [facility] PCO2, ARTERIAL 41 35 - 48 mmHg 06/29/2023 11:22 AM [facility] PO2, ARTERIAL 220(H) 83 - 108 mmHg 06/29/2023 11:22 AM [facility] HCO3, ARTERIAL 25 21 - 28 mmol/L 06/29/2023 11:22 AM [facility] BASE EXCESS, ARTERIAL -0.2 -2.0 - 3.0 06/29/2023 11:22 AM [facility] O2 SATURATION, ARTERIAL 100(H) 94 - 98 % 06/29/2023 11:22 AM [facility] PATIENT TEMPERATURE 37.0 Degrees C 06/29/2023 11:22 AM [facility] COLLECTION SITE ARTERIAL LINE 06/29/2023 11:22 AM [facility] HEMOGLOBIN,BLOO D GAS 8.2(L) 13.5 - 17.5 g/dL 06/29/2023 11:22 AM [facility] SODIUM 134(L) 136 - 145 mmol/L 06/29/2023 11:22 AM [facility] POTASSIUM 4.8 3.5 - 5.1 mmol/L 06/29/2023 11:22 AM [facility] CHLORIDE 108(H) 98 - 107 mmol/L 06/29/2023 11:22 AM [facility] Blood BLOOD SPECIMEN / Unknown 06/29/2023 11:22 AM CASUALTY CLAIMS SUPERVISOR 06/29/2023 11:23 AM [facility] Bella Benavidez MD CHEMISTRY [facility] [address] [place] [address], * RBC W/O TYPE & SCREEN (06/29/2023 11:11 AM [facility]) Only the most recent of2 resultswithin the time period is included. QUANTITY 2 06/29/2023 11:11 AM CASUALTY CLAIMS SUPERVISOR [facility] Blood BLOOD SPECIMEN / Unknown 06/29/2023 11:09 AM CASUALTY CLAIMS SUPERVISOR Ahmet Levy MD BLOOD BANK Performing Organization Address [facility]/ZIP Co de Phone Number [facility] [address] [place] [id number], * RED BLOOD CELLS EA UNIT (06/29/2023 11:09 AM CASUALTY CLAIMS SUPERVISOR) Only the most recent of4 resultswithin the time period is included. CROSSMATCH Compatible Compatible [facility] PRODUCT BLOOD TYPE A Rh Positive [facility] PRODUCT ID NUMBER [id number] [facility] B[facility] PRODUCT STATUS /Relea sed [facility] [facility] LAB BLOOD BANK PRODUCT DESCRIPTION RBC -1 LR [facility] B[facility] PRODUCT CODE [id number] [facility] [employer] LAB BLOOD BANK Ahmet Levy MD BLOOD BANK Performing Organization Address [facility] de Phone Number [facility] [employer] LAB BLOOD BANK [address] [place] [id number], * HCHG TUBE PR1, HCHG INSTRUMENT DISP PR10, HCHG STYLET PR1, HCHG MOUTHPIECE PR1 (06/29/2023 10:10 [facility] Narrative Carlos Briggs CRNA - 06/29/2023 10:10 AM CASUALTY CLAIMS SUPERVISOR Carlos Briggs CRNA ? 06/29/2023 10:11 AM Procedure: ETT Patient location during procedure: OR ETT Properties Mask Ventilation: not attempted Final Technique: video laryngoscopy and rapid sequence induction Type: straight Location: oral Cuffed: yes Tube Size: 7.5 mm Stylet: yes Laryngoscope Blade: Glidescope Blade Size: 4 Cormack-Lehane Grade View: 1 Insertion Attempts: 1 Placement Verification: auscultation, end tidal CO2, symmetrical chest wall movement and cuff palpation Assessment: pharynx clear, atraumatic and dentition unchanged Secured at: 22 Measured From: lips Tooth guard used and removed: yes Difficulty: 0 (not difficult) Inna Molina MD ANESTHESIA PX N OTE ORDERABLES * CVL TAVR (06/29/2023 8:49 AM CASUALTY CLAIMS SUPERVISOR) Anatomical Region Laterality Modality X-Ray Angiograph y, X-Ray Angiography 06/29/2023 8:49 AM CASUALTY CLAIMS SUPERVISOR Narrative Transcriptions Bella Benavidez MD - 06/29/2023 11:08 AM CST [facility] Cardiac Catheterization Report Name: VILMA UGARTE Event Date: 06/29/2023 08:49 Excell[facility] ID #: [id number] BASIM #: [id number] Diagnostic Physician: BELLA BENAVIDEZ [facility] Interventional Physician: BELLA BENAVIDEZ [facility] Referring Physician: Date: 1955 Gender: Male Age: 68 Summary/Conclusions PRESENTATION / INDICATIONS * Severe , TAVR per MDVC and patient choice VASCULAR ACCESS * Using ultrasound guidance and a percutaneous technique, the left commonfemoral artery was accessed. Ultrasound was used to confirm vesselpatency, localizing needle into the lumen of the vessel. An image wassaved for the medical record. * Using ultrasound guidance and a percutaneous technique, the right commonfemoral artery was accessed. Ultrasound was used to confirm vesselpatency, localizing needle into the lumen of the vessel. An image wassaved for the medical record. * Using ultrasound guidance and a percutaneous technique, the rightfemoral vein was accessed. Ultrasound was used to confirm vessel patency,localizing needle into the lumen of the vessel. An image was saved for themedical record. DIAGNOSTIC - VALVES * Severe aortic valve stenosis. SPECIAL PROCEDURES * Right femoral arteriotomy was successfully closed utilizing a closuredevice * Unsuccessful attempt to deploy a closure device to the left femoralartery: both Proglide devices failed due to access site calcification. Vanessa was called into the room and ultimately decided to do an openrepair. Please see additional notes. VALVULAR AND STRUCTURAL HEART INTERVENTION * Transcatheter aortic valve replacement (TAVR) was performed, 29 EV FX, 3total deployment attempts SPECIAL EQUIPMENT * A temporary pacemaker was inserted during the procedure. LBBB at the endof the procedure but no pacing needs. LEFT VENTRICULAR FUNCTION ? LV Pressure = 165/15. Consent & [place] Protocol The risks, benefits, and alternatives of the procedure were discussed withthe patient and written informed consent was obtained. [place] protocol was followed. TIME OUT conducted just prior tostarting procedure confirmed patient identity, site/side, procedure,patient position, and availability of correct equipment and implants (ifapplicable). Staff Name Title Jony Tan RN Nurse Neelam Olguin RN Nurse Gabriela Delvalle RTR Monitor Vasiliy Herrera CLEANING MAID Slot Operations Manager Vera Marino CVT Slot Operations Manager Junior Castellanos Fellow Leon Broussard NP Physician Finished Cigar Maker BELLA BENAVIDEZ Silk Spreader AHMET LEVY Vascular Surgeon Rachael Serna Fellow Procedures ? Ultrasound Guided Vascular Access ? Ultrasound Guided Vascular Access ? Ultrasound Guided Vascular Access ? Aortic Root Angiogram ? Left Heart Cath No Ventriculogram ? Temporary Pacemaker ? TAVR Transfemoral Hemodynamics State: Baseline Pressures (mmHg) Site Systolic Diastolic End Diastolic A Wave V Wave Mean AO 106 55 77 LV 165 -6 15 Valves Aortic Valve Mean Gradient: 37.46 State: Phase 2 Pressures (mmHg) Site Systolic Diastolic End Diastolic A Wave V Wave Mean AO 113 47 71 LV 112 7 21 Valves Aortic Valve Mean Gradient: 4.54 Procedure Details Estimated Blood Loss: < 30 ml Specimen Collected: None Level of Sedation Achieved: Moderate Procedure Start: 08:49 Procedure End: 10:07 Procedure Time: 78 min Fluoroscopy Time: 17.5 min Cumulative Air Kerma: 1046 mGy DAP: 7614 uGy/M2 Contrast: Visipaque (iso-osmolar), 70 ml Physiologic Data Weight: 79.8 kg BSA: 1.91 m2 Vascular Access Time Access Sheath Size 08:50 Right Femoral Vein, sheath inserted. 08:52 Right Femoral Artery, sheath inserted 08:56 Left Femoral Artery, sheath inserted Medications Ordered and Administered Start Time Stop Time Medication Dose Units Route Ordered By Given By 08:30 Cefazolin (Ancef) 2 g IV Bella Benavidez Mellina RN 08:33 Fentanyl 25 mcg IV Bella Benavidez Mellina RN 08:33 Versed 0.5 mg IV GoesslBella Mellina RN 08:47 Versed 1 mg IV Goessl, Neelam Oakley RN 08:48 Fentanyl 50 mcg IV JadynslBella Mellina RN 08:49 1% Lidocaine 10 ml Subcut Emanuel, Junior Emanuel, Junior 08:55 1% Lidocaine 10 ml Subcut Emanuel, Junior Emanuel, Junior 08:58 Heparin 8000 units IV GoesslBella Mellina RN 09:02 O2 2 l per min Nasal cannula Goessl, Neelam Oakley RN 09:08 Heparin 3000 units IV GoesslBella Mellina RN 09:12 Fentanyl 25 mcg IV JadynslBella Mellina RN 09:12 Versed 0.5 mg IV GoesslBella Mellina RN 09:23 O2 4 l per min Nasal cannula JadynslBella Mellina RN 09:35 Protamine 70 mg IV Goessl, Neelam Oakley RN 09:38 Fentanyl 25 mcg IV Goessl, Neelam Oakley RN 09:38 Versed 0.5 mg IV GoesslBella Mellina RN 09:42 Versed 0.5 mg IV Goessl, Neelam Oakley RN 09:42 Fentanyl 25 mcg IV Goessl, Neelam Oakley RN 09:49 Versed 0.5 mg IV GoesslBella Mellina RN 09:49 Fentanyl 25 mcg IV Goessl, Neelam Oakley RN 09:55 Fentanyl 25 mcg IV Goessl, Neelam Oakley RN 09:55 Versed 0.5 mg IV Goessl, Neelam Oakley RN I personally monitored the patient?s conscious sedation during theprocedure. Conscious sedation starts with the first sedation medication dose ofFentanyl or Versed and ends when the procedure is completed, the patientis stable for recovery status, and the physician or other qualified healthcare professional providing the sedation ends personal [id number] time with the patient. The medications listed above were verbally ordered by me and read back tome as documented above. Refer to the procedure log report for additional case details. electronically signed on 06/29/2023 11:08:03 AM with status of Final Bella Benavidez MD [facility] [address] [facility] [address] [place] [address] (p) (f) Bella Benavidez MD CV IMAGING * (ABNORMAL) Glucose, Fasting (06/29/2023 6:20 AM CASUALTY CLAIMS SUPERVISOR) GLUCOSE 174(H) 70 - 99 mg/dL 06/29/2023 6:58 AM CASUALTY CLAIMS SUPERVISOR [facility] Blood BLOOD SPECIMEN / Unknown Venipuncture / Unknown 06/29/2023 6:20 AM CASUALTY CLAIMS SUPERVISOR 06/29/2023 6:30 AM CASUALTY CLAIMS SUPERVISOR Leon Broussard KELLER MACHINE OPERATOR CHEMISTRY Performing Organization Address City/[facility]/ZIP Co de Phone Number [facility] [address] [place] [address], * SCAN-CARDIAC STRIP (06/29/2023 12:00 AM CASUALTY CLAIMS SUPERVISOR) Narrative 06/29/2023 12:00 AM CASUALTY CLAIMS SUPERVISOR Ordered by an unspecified provider. Other Clinical Staff OTHER * CNC 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 ENGINEER QUESTION TEST (06/23/2023 9:42 AM CASUALTY CLAIMS SUPERVISOR) QABT Question Yes 06/23/2023 9:56 AM CASUALTY CLAIMS SUPERVISOR [facility] Blood BLOOD SPECIMEN / Unknown Venipuncture / Unknown 06/23/2023 9:42 AM CASUALTY CLAIMS SUPERVISOR 06/23/2023 9:50 AM CASUALTY CLAIMS SUPERVISOR Bella Benavidez MD BLOOD BANK [facility] [address] [place] [address], * ALBUMIN (06/23/2023 9:42 AM CASUALTY CLAIMS SUPERVISOR) ALBUMIN 4.1 4.0 - 4.9 g/dL 06/23/2023 10:19 AM CASUALTY CLAIMS SUPERVISOR [facility] Blood BLOOD SPECIMEN / Unknown Venipuncture / Unknown 06/23/2023 9:42 AM CASUALTY CLAIMS SUPERVISOR 06/23/2023 9:50 AM CASUALTY CLAIMS SUPERVISOR Bella Benavidez MD CHEMISTRY [facility] [address] [place] [address], [place] * CTA CHEST ABD PELVIS TAVR - DUAL READ (05/16/2023 2:46 PM CASUALTY CLAIMS SUPERVISOR) Anatomical Region Laterality Modality CHEST, Abdomen, Pelvis Computed Tomography Impressions 05/18/2023 3:24 PM CASUALTY CLAIMS SUPERVISOR 1. Please see separate dictation for all cardiac and arterial structures. 2. Focal airspace consolidation with irregular margin posterior left upper lobe measuring 19 x 15 mm. If the patient has recent or current infectious symptoms/pneumonia consider follow-up chest CT in 6-12 weeks. Otherwise could consider either PET-CT or biopsy. 3. Subtle but abnormal appearing heterogeneous hypoenhancement within the pancreatic tail, and cyst-like cluster appearing masses in the pancreatic head measuring up to 26 mm, not definitely seen on remote priors. No definite intra or extrahepatic biliary ductal dilatation. Unclear if this represents multiple IPMNs,, or edema but an MRI of the abdomen with contrast, pancreas protocol, is recommended to further evaluate. 4. Colonic diverticulosis. Please note that all CT scans at this facility use dose modulation, iterative reconstruction, and/or weight-based dosing when appropriate to reduce radiation dose to as low as reasonably achievable. Dictated by Jagdish Segal MD @ 05/17/2023 10:25:19 PM Signed by: Jagdish Segal MD @05/17/2023 10:25:19 PM (Electronic Signature) Narrative 05/18/2023 3:24 PM CASUALTY CLAIMS SUPERVISOR Images from the original result were not included. STUDY: CTA CHEST, ABDOMEN, AND PELVIS TAVR Study date: 05/16/2023 Indication: 68 year-old male with aortic valvular stenosis referred for evaluation of aortic valve annulus, thoracic aorta anatomy, and arterial access anatomy to determine candidacy for transcatheter aortic valve replacement (TAVR) procedure. STUDY PARAMETERS: Scanner: Siemens Definition Force Contrast: 100 ml of Omnipaque 350 Scan protocol: Helical with dose modulation for heart image acquisition. ?? High-pitch for chest, abdomen, and pelvis image acquisition. Radiation dose length product: 1469 for heart and chest, abdomen, pelvis imaging. Image quality: Good FINDINGS: Aortic valve: ??Severely ??calcified trileaflet valve with reduced leaflet opening excursion. . Aortic valve calcium score 2295. Annulus: Angles: Optimal deployment projection (balloon expandable device): LA0 4??, CAU 5?? Optimal deployment projections (self expandable device): FABIAN 19??, CAU 23?? Left ventricle / aortic ??angle: 39?? Access: Other findings: Coronary arteries: ??Dominance: Right coronary artery ??Left main Nonobstructive atherosclerosis ??Left anterior descending artery Nonobstructive atherosclerosis ??Left circumflex artery Nonobstructive atherosclerosis ??Right coronary artery Nonobstructive atherosclerosis Left atrium: Normal contrast opacification Left ventricle septal ECV: 24%. Pericardium: Normal without effusion. Thoracic aorta: Left-sided arch. Mild atheromatous disease in the aortic sinus, ascending aorta, arch, and descending thoracic aorta. Abdominal aorta: Normal size and morphology. Moderate atherosclerosis. Abdominal aorta branch arteries: Celiac artery Nonobstructive atherosclerosis. Superior mesenteric artery Nonobstructive atherosclerosis. Right renal artery Nonobstructive atherosclerosis. Left renal artery Nonobstructive atherosclerosis. Inferior mesenteric artery Patent. Noncardiac findings: Please see separate radiology report. FINAL IMPRESSIONS: 1. Severely calcified tri leaflet aortic valve with calcium score of 2295 and reduced leaflet excursion. 2. The aortic valve has a perimeter of 77mm and an area of 432mm2. 3. Nonobstructive iliac and common femoral arteries - right or left transfemoral access is feasible. There obstructive plaque in the mid right common femoral so a higher stick would be required if R TF access is pursued. 4. Major epicardial coronary arteries exhibit no evidence of obstructive disease - coronary angiography not needed prior to valve intervention. 5. Best fitting prothesis options include the 26 mm Victor Hugo 3 balloon-expandable prosthesis with 20% oversize, the 29 mm Evolut self-expanding prosthesis, the 27 mm Portico self-expanding prosthesis, or the 25 mm Acurate self-expanding prosthesis. FOR PATIENT: Results are automatically released to your [employer]) account once available, in compliance with federal regulations. ?? This means that you may see your results before your provider has had a chance to review them. ??Please allow 2-3 business days for your provider to comment on the results. Cardiac Imaging Fellow: Monae Chamorro MD [employer] Apart[employer] Hotel Manager: Donald Sánchez MD MPH [facility] 05/16/2023 For Patients: As a result of the Cures Act, medical imaging exams and procedure reports are released immediately into your electronic medical record. ??You may view this report before your referring provider. ?? If you have questions, please contact your health care provider. OVER-READ ??OVER-READ ??OVER-READ OVER-READ: DETAILED RADIOLOGY EXTRACARDIAC OVER-READ OF CARDIAC CT 05/16/2023 COMPARISON: ??11/24/2022. TECHNIQUE: ??Please see cardiology report for technical information. ?? Multiphasic CT without with contrast of the heart. Additionally, CTA of the chest, abdomen and pelvis was performed per [facility] protocol. Please see Cardiology dictation for details on technique. ?? 100 cc Omnipaque-350 intravenous contrast. ?? This exam is being performed in conjunction with the services provided by the [facility] ([facility]). CLINICAL HISTORY: Over-read of non-cardiovascular structures requested for patient with history of severe aortic stenosis. FINDINGS: ??Please see separate dictation for all cardiac and arterial structures. Chest: Thyroid: Unremarkable Airways: The central airways are patent. No bronchiectasis. Lungs: Focal airspace consolidation with irregular margin seen in the posterior left upper lobe measuring 19 x 15 mm, new from previous exam. It abuts the major fissure and lateral pleura. Pulmonary artery: No central pulmonary artery embolism. Pleural spaces: No pneumothorax or pleural effusion. Lymph Nodes: No significant axillary, mediastinal, or hilar lymphadenopathy. Abdomen/Pelvis: Arterial phase of acquisition limits evaluation of solid organs, and bowel on top of the low dose imaging technique. Liver: Non-cirrhotic morphology. No obvious suspicious lesion. Gallbladder: Unremarkable. Spleen: Normal in size. Adrenal glands: Unremarkable. Kidneys: No hydronephrosis. Symmetric enhancement. Renal cysts. Pancreas: Subtle but abnormal appearing heterogeneous hypoenhancement within the pancreatic tail (see image 364, series 14), and cyst-like cluster appearing masses in the pancreatic head measuring up to 26 mm on image 401, series 14, not definitely seen on remote priors. No definite intra or extrahepatic biliary ductal dilatation. Lymph nodes: No retroperitoneal, mesenteric, inguinal, or pelvic adenopathy by CT criteria. Bowel: No bowel obstruction. Colonic diverticulosis. Urinary bladder: Limited evaluation due to underdistention. No gross pathology. Reproductive structures: Unremarkable for patient`s age. Peritoneum: No abdominal/pelvis ascites or free intraperitoneal air. MSK: Posterior spinal fusion and decompression spanning levels L3 through L5. Bella Benavidez MD CT * CREATININE,ISTAT (05/16/2023 2:23 PM CASUALTY CLAIMS SUPERVISOR) CREATININE, POCT 0.60 0.57 - 1.11 mg/dL 05/16/2023 2:57 PM CASUALTY CLAIMS SUPERVISOR [facility] eGFR >90 >90 mL/min/1.7 3m2 05/16/2023 2:57 PM CASUALTY CLAIMS SUPERVISOR [facility] Comment:As of 2021, eG FR is calculated by the CKD-EPI creatinine equation without race adjustment. eGFR can be influenced by muscle mass, exercise, and diet. The reported eGFR is an estimation only and is only applicable if the renal function is stable. Blood BLOOD SPECIMEN / Unknown 05/16/2023 2:23 PM CASUALTY CLAIMS SUPERVISOR 05/16/2023 2:57 PM CASUALTY CLAIMS SUPERVISOR Bella Benavidez MD [facility] [address] [place] [id number], * (ABNORMAL) HEMATOCRIT/HGB,ISTAT (05/16/2023 2:18 PM CASUALTY CLAIMS SUPERVISOR) HEMATOCRIT, POCT 37.0 37.0 - 53.0 % 05/16/2023 2:57 PM CASUALTY CLAIMS SUPERVISOR [facility] HEMOGLOBIN, POCT 12.6(L) 13.5 - 17.5 g/dL 05/16/2023 2:57 PM CASUALTY CLAIMS SUPERVISOR [facility] Blood BLOOD SPECIMEN / Unknown 05/16/2023 2:18 PM CASUALTY CLAIMS SUPERVISOR 05/16/2023 2:57 PM CASUALTY CLAIMS SUPERVISOR Bella Benavidez MD CHEMISTRY [facility] [address] [place] [address], * ECHO TTE COMPLETE WO CONTRAST (04/14/2023 8:45 AM CDT) AORTIC VALVE MEAN PG 36 mmHg EJECTION FRACTION 79 % PEAK TR VELOCITY 2.6 m/s LVEDD 4.3 cm EJECTION FRACTION 70 - 75% Anatomical Region Laterality Modality Ultrasound 04/14/2023 7:56 AM CDT Narrative 04/14/2023 9:08 AM CDT ECHOCARDIOGRAM VILMA UGARTE ?Accession#: ?? [id number] : ?1955 68 years Study Date: ?? 04/14/2023 7:56:53 AM Gender: M ? BP: ? 136/68 mmHg Height: 170.00 cm ? BSA: ?1.96 m? ? ? Weight: 84.00 kg ?Tech: ? MTS ?Referring MD: MALI ROBERTSON Site: ? [facility] Reading Location: MOBILE OP Patient Location: Outpatient. Procedure: 2D, Color Doppler and Spectral Doppler. Indication for study: Murmur Cardiac Rhythm: Regular.Study quality: Good. Final Impressions: 1. Normal LV size, mildly increased wall thickness, hyperdynamic global systolic function with an estimated EF of 70 - 75%. 2. The aortic valve is sclerotic, severe stenosis and trivial regurgitation. 3. Moderately enlarged left atrium. 4. Right ventricular cavity size is normal, global systolic RV function is normal. 5. The mitral valve is sclerotic, anterior leaflet is calcified, mild stenosis (mean mitral gradient 5mmHg at 60bpm), mild mitral regurgitation. 6. The inferior vena cava is normal sized, respiratory size variation greater than 50%. Comparison Compared to prior exam report of 05/11/2022: - Aortic stenosis has increased. - Mitral stenosis has increased. Chamber Sizes and Function Normal left ventricular size, mildly increased wall thickness, hyperdynamic global systolic function with an estimated EF of 70 - 75%. Left atrial size is moderately enlarged. Right ventricular cavity size is normal, global systolic RV function is normal. RV wall thickness is normal. The right atrium is mildly enlarged. Right atrial volume index is 25 ml/m? ? ?. Right atrial area is 19 cm? ? ?. The pulmonary artery is of normal size and origin. The sinus of Valsalva is normal sized. The ascending aorta is normal sized. Valves, RV Pressures and Diastolic Function The aortic valve is sclerotic, severe stenosis and trivial regurgitation. The mitral valve is sclerotic, mild mitral regurgitation. Mild mitral annular calcification is present. Indeterminate pattern of LV diastolic filling. The tricuspid valve is normal in structure. Tricuspid regurgitation is mild regurgitation. The tricuspid regurgitant velocity is 2.6 m/s, the estimated right ventricular systolic pressure is 28 mmHg plus right atrial pressure. The pulmonic valve is normal. No pulmonary regurgitation. Masses, Effusion, Shunts There is no pericardial effusion. The inferior vena cava is normal sized, respiratory size variation greater than 50%. No left to right shunting was detected by limited color flow Doppler interrogation of the interatrial septum. MEASUREMENTS AND CALCULATIONS 2-D Measurements and LV Function: LVID (d) 4.3 cm LV FS% (2D) ?? 56 % LVID (s) 1.9 cm LVOT diameter 1.9 cm IVS (d) ??1.3 cm HR ?54 bpm LVPW (d) 1.3 cm LA Vol index ??47 ml/m2 Ao Sinus 3.4 cm RA Vol index ??25 ml/m2 Asc Ao ?? 3.8 cm RA area ? 19 cm? ? ? LA ? 4.6 cm RV Max 4C (d) 4.4 cm Diastology: Mitral ?Tissue Doppler ?Pulmonary veins E Peak 1.8 m/s ??e', Septum ? 0.05 m/s Pulm s ?63.4 cm/s A Peak 1.0 m/s ??e', Lateral ?0.05 m/s Pulm d ?83.6 cm/s E/A ?1.7 ?E/e' Average ?? 35.64 ?Pulm s/d ratio ??0.76 DT ? 378 msec Aortic Valve: Vmax ? 3.9 m/s ??AVINASH (V) ?? 1.03 cm? ? ? VTI ?0.99 m ?? AVINASH (I) ?? 0.92 cm? ? ? LVOT V max 1.4 m/s ??Max PG ?61 mmHg LVOT VTI ?? 0.32 m ?? Mean PG ?? 36 mmHg SV ? 91 ml ?Dim Index 0.32 SV index ?? 46 ml/m? ? ? CO ?4.9 l/min ?CI ?2.5 l/min/m? ? ? Mitral Valve: MVA ? 2.0 cm?MR TVI 1.89 m MV P 1/2 ??110 msec MV Mean G 5 mmHg MV VTI ?0.57 m Tricuspid Valve and estimated PA pressures: TR Vmax 2.6 m/s TAPSE 2.7 cm TR maxG 28 mmHg . This study was interpreted by an [facility] accredited facility. CC: [facility] ([facility]) [facility]. ??Final ?? Procedure Note Abad Guaman MD - 04/14/2023 ECHOCARDIOGRAM VILMA UGARTE : 1955 68 years Study Date: 04/14/2023 7:56:53 AM Gender: M BP: 136/68 mmHg Height: 170.00 cm BSA: 1.96 m? ? ? Weight: 84.00 kg Tech: WENDIE Referring MD: MALI ROBERTSON Site: [facility] Reading Location: MOBILE OP Patient Location: Outpatient. Procedure: 2D, Color Doppler and Spectral Doppler. Indication for study: Murmur Cardiac Rhythm: Regular.Study quality: Good. Final Impressions: 1. Normal LV size, mildly increased wall thickness, hyperdynamic globalsystolic function with an estimated EF of 70 - 75%. 2. The aortic valve is sclerotic, severe stenosis and trivialregurgitation. 3. Moderately enlarged left atrium. 4. Right ventricular cavity size is normal, global systolic RV functionis normal. 5. The mitral valve is sclerotic, anterior leaflet is calcified, mildstenosis (mean mitral gradient 5mmHg at 60bpm), mild mitralregurgitation. 6. The inferior vena cava is normal sized, respiratory size variationgreater than 50%. Comparison Compared to prior exam report of 05/11/2022: - Aortic stenosis has increased. - Mitral stenosis has increased. Chamber Sizes and Function Normal left ventricular size, mildly increased wall thickness,hyperdynamic global systolic function with an estimated EF of 70 - 75%.Left atrial size is moderately enlarged. Right ventricular cavity size isnormal, global systolic RV function is normal. RV wall thickness isnormal. The right atrium is mildly enlarged. Right atrial volume index is25 ml/m? ? ?. Right atrial area is 19 cm? ? ?. The pulmonary artery is of normalsize and origin. The sinus of Valsalva is normal sized. The ascendingaorta is normal sized. Valves, RV Pressures and Diastolic Function The aortic valve is sclerotic, severe stenosis and trivial regurgitation.The mitral valve is sclerotic, mild mitral regurgitation. Mild mitralannular calcification is present. Indeterminate pattern of LV diastolicfilling. The tricuspid valve is normal in structure. Tricuspidregurgitation is mild regurgitation. The tricuspid regurgitant velocity is2.6 m/s, the estimated right ventricular systolic pressure is 28 mmHg plusright atrial pressure. The pulmonic valve is normal. No pulmonaryregurgitation. Masses, Effusion, Shunts There is no pericardial effusion. The inferior vena cava is normal sized,respiratory size variation greater than 50%. No left to right shunting wasdetected by limited color flow Doppler interrogation of the interatrialseptum. MEASUREMENTS AND CALCULATIONS 2-D Measurements and LV Function: LVID (d) 4.3 cm LV FS% (2D) 56 % LVID (s) 1.9 cm LVOT diameter 1.9 cm IVS (d) 1.3 cm HR 54 bpm LVPW (d) 1.3 cm LA Vol index 47 ml/m2 Ao Sinus 3.4 cm RA Vol index 25 ml/m2 Asc Ao 3.8 cm RA area 19 cm? ? ? LA 4.6 cm RV Max 4C (d) 4.4 cm Diastology: Mitral Tissue Doppler Pulmonary veins E Peak 1.8 m/s e', Septum 0.05 m/s Pulm s 63.4 cm/s A Peak 1.0 m/s e', Lateral 0.05 m/s Pulm d 83.6 cm/s E/A 1.7 E/e' Average 35.64 Pulm s/d ratio 0.76 DT 378 msec Aortic Valve: Vmax 3.9 m/s AVINASH (V) 1.03 cm? ? ? VTI 0.99 m AVINASH (I) 0.92 cm? ? ? LVOT V max 1.4 m/s Max PG 61 mmHg LVOT VTI 0.32 m Mean PG 36 mmHg SV 91 ml Dim Index 0.32 SV index 46 ml/m? ? ? CO 4.9 l/min CI 2.5 l/min/m? ? ? Mitral Valve: MVA 2.0 cm? ? ? MR TVI 1.89 m MV P 1/2 110 msec MV Mean G 5 mmHg MV VTI 0.57 m Tricuspid Valve and estimated PA pressures: TR Vmax 2.6 m/s TAPSE 2.7 cm TR maxG 28 mmHg . This study was interpreted by an [facility] accredited facility. CC: [facility]. Final Mali Robertson PA-C ECHO ORD * SCAN-LABORATORY REPORT (04/12/2023 12:00 AM CDT) Scanner OTHER from Last 3 Months Advance Directives Latest Code Status on File Code Status Date Activated Date Inactivated Comments Full Code 06/29/2023 10:24 AM 06/30/2023 6:35 PM Question Answer Comments Code Status Discussion: Reviewed Preferences Code Status History Code Status Date Activated Date Inactivated Comments Full Code 06/16/2022 11:09 AM 06/16/2022 5:25 PM Question Answer Comments Code Status Discussion: Reviewed Preferences Full Code 03/04/2022 7:30 AM 03/05/2022 2:28 PM Question Answer Comments Code Status Discussion: Per Existing Order Full Code 12/15/2015 8:24 AM 12/16/2015 1:04 PM Full Code 10/02/2015 12:59 PM 10/06/2015 1:14 PM Question Answer Comments Code Status Discussion: Discussed Care Teams Modular Set Crew Member Relationship Specialty Start Date End Date Mali Robertson PA-C [address] [place] [address] PCP - General Emergency Medicine 04/20/23 Paul Soler MD [address] [place] [address] Pulmonology Pulmonary Medicine 09/30/22
[2023-07-05 22:01] LABS: Chloride* 101 mmol/L (96-114); Potassium* 4.5 mmol/L (3.6-5.1); Slide Review Reflex No; Sodium* 138 mmol/L (135-149)
[2023-07-05 22:04] LABS: Anion Gap 9 mEq/L (7-15); Carbon Dioxide* 28 mmol/L (20-32); Creatinine* 0.8 mg/dL (0.5-1.5); Estimated Glomerular Filt Rate 96 ml/min
[2023-07-05 22:05] LABS: Blood Urea Nitrogen* 16 mg/dL (7-30); Calcium* 9.1 mg/dL (8.4-10.6); Glucose* 200 mg/dL (60-115)
[2023-07-05 22:32] LABS: INR 1.44 (0.91-1.10); Prothrombin Time 18.5 Seconds
[2023-07-05 22:58] VITALS: BP 127/66
[2023-07-05 23:18] VITALS: PULSE 81; O2SAT 97
--- NOTE | 2023-07-05 23:19 | PC.NURSE ---
Assume care of this pt. MD at BS. VSS. Bilateral groins bruised and feel soft. CT pending for hematoma
[2023-07-05 23:30] VITALS: PULSE 79; O2SAT 96
[2023-07-05 23:45] VITALS: PULSE 98; O2SAT 97
[2023-07-06] VITALS (18 sets, daily range): BP systolic 123–134; BP diastolic 70–84; PULSE 72–86; RESP 18; O2SAT 92–99
--- NOTE | 2023-07-06 00:45 | PC.NURSE ---
[facility] accepted pt but then they called back as their ED is [place]. Dr Sesay will assume care. Pt aware of the above.
--- NOTE | 2023-07-06 02:02 | PC.NURSE ---
Pt repositioning self in bed. Pillows provided. left groin rechecked. No changes at site. C/D/I with distlal pulses
--- NOTE | 2023-07-06 02:16 | PC.NURSE ---
Pt has been going in and out of afib-now more afib via gambling monitor. MD mayo
--- NOTE | 2023-07-06 02:31 | PC.NURSE ---
JOHNW called again for this pt with left femoral bleed. He is going to an ICU bed and daniel will be calling shortly.
--- NOTE | 2023-07-06 03:21 | PC.NURSE ---
Report given to William JEFFERSON ABNW. Pt going to ICU [id number]
--- NOTE | 2023-07-06 03:42 | PC.NURSE ---
Report given to EMS for this emergent tx. All cares explained. Left groin remains C/D/I. VSS.
--- NOTE | 2023-07-06 03:53 | ED.NURSE ---
patient report given to EMS by Barbara YIN RN. Patient transferred to [place] [id number]
== END 2023-07-06 03:57 | disposition short-term general hospital (02) ==
PROVIDERS: Emergency Provider Emergency Medicine; PCP Physician Assistant Medical
DX: R22.42 Localized swelling, mass and lump, left lower limb (principal); I97.620 Postprocedural hemorrhage of a circulatory system organ or structure following other procedure
CPT/HCPCS: 36415; 74174; 80048; 85025; 85610; 86850; 86900; 86901; 93005; 94761; 99285; 99291; Q9967

== ENCOUNTER 2023-07-06 03:48 | Outpatient (CLI) | payer MEDICARE, BC, SELFPAY ==
--- OUTSIDE RECORDS SUMMARY | 2023-07-07 12:47 | XMS_ITS | Continuity of Care Document ---
Author Name Unknown Organization Z [facility] Address [address] [place] [address] Phone Care Team Providers Care Supervisor Furnace Process Name Role Phone Sumit Castillo MD Unavailable [...] Date Provider Providers Copied on Encounter Z [facility], [address], [place], [address], [place] tel:[phone] [facility] [place] No Information 8 Jonathan Arana. [facility], [address], [place], [place], [id number] , [place]. [phone] Office/outpat ient visit,est, low Z [facility], [address], [place], [address], [place] tel:[phone] [facility] [place] No Information Apr-1 0-200 8 Mehbod Amir. [facility], [address] [place] [address] [address], [place], [place], [id number] , [place]. [phone] Referring Provider: Mckinley Cardona, [facility], [place], [address]. tel:[phone] Office/outpat ient visit,est, low Z [facility] [place], [address] [place], [place] [address], [place], [place], [facility], [place] tel:[phone] [facility] [place] No Information Jan-0 9-200 7 Mehbod Amir. [facility] [place], [address] [place] [address] [address], [place], [place], [id number] , [place]. [phone] Referring Provider: Mckinley Cardona, [facility] Yadira [facility], [place], [address]. tel:[phone] Office/outpat ient visit,est, low Z [facility], [address] [place], [place] [address]ite [facility], [place], [address], [place] tel:[phone] [facility] No Information Bong-2 8-200 7 Mehbod Amir. [facility], [address], [place], [place], [id number] , [place]. [phone] Referring Provider: Mckinley Cardona, [facility] Yadira [facility], [place], [address]. tel:[phone] Z [facility], [address] [place], [place] [address] [address], [place], [place], [facility], [place] tel:[phone] [facility] [place] No Information May-1 0-200 7 Mehbod Amir. [facility], [address], [place], [place], [id number] , [place]. tel:[phone] Referring Provider: Mckinley Cardona [facility], [place], [address]. tel:[phone] Z [facility], [address] [place], [place] [address], [place], [address], [place] tel:[phone] [facility] No Information 1200 7 Mehbod Amir. [facility], [address], [place], [place], [id number] , [place]. tel:[phone] Referring Provider: [facility], [place], [address]. tel:[phone] Office consultation, moderate Z [facility], [address] [place] [address] [address], [place], [address], [place] tel:[phone] [facility] No Information 200 6 Mehbod Amir. [facility], [address], [place], [place], [id number] , [place]. tel:[phone] Referring Provider: Mckinley Cardona [facility] Yadira [facility], [place], [address]. tel:[phone] Family History Family Member Type Diagnosis Age At Onset No Information Payers Payer name Insurance type Covered constitution party ID Buck avilajaylin(s) [employer] AM [id number] [employer] [id number] Social History Type Description Quantity Date Captured [...]
--- OUTSIDE RECORDS SUMMARY | 2023-07-07 12:48 | XMS_ITS | Clinical Summary ---
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 1 Each 1 2 Active albuterol-ipratr opium (DUONEB) (2.5-0.5 mg) [...] at bedtime. 90 Tablet 3 3 Active warfarin (COUMADIN) 7.5 mg tabletIndication s:Paroxysmal atrial fibrillation (HC),Anticoagula tion monitoring, INR range 2-3 Take by mouth 3.75 mg every Sun, Tue, Marcela; 7.5 mg all other days in the evening OR as directed 0 3 Active Additional Information Patient taking differently: Take by mouth 3.75 mg every Sun, Tue, Marcela; 7.5 mg all other days in the evening, Informant: Patient's Recall, Reported on 07/06/2023 montelukast (SINGULAIR) 10 mg tabletIndication s:Shortness of [...] a meal. 90 Capsule 2 3 Active amLODIPine (NORVASC) 10 mg tabletIndication [...] daily with a meal. 0 4 Active acetaminophen (TYLENOL EXTRA STRGTH) 500 mg tablet Take 1,000 mg by mouth once daily in the evening. Max acetaminophen dose: 4000mg in 24 hrs. 0 Active mometasone-formo terol (Dulera) 200-5 mcg/actuation inhaler Inhale 2 Puffs by mouth 2 times daily if needed. 0 Active triamcinolone 0.1 % ointment Apply topically to affected area(s) 3 times daily if needed. 0 Active blood-glucose meter (BLOOD GLUCOSE MONITORING)Indic ations:Diabetes mellitus without complication (HC) Dispense meter, test strips, lancets covered by pt ins. E11.9 NIDDM type II - Test 1 time/day 1 Device 0 6 024 Discontinued(Ph armacist change per medication history (E-cancel not sent)) acetaminophen (TYLENOL EXTRA STRGTH) 500 mg tabletIndication s:Post-op pain Take 1 Tablet (500 mg) by mouth every 4 hours if needed for Pain (For mild pain.). Max acetaminophen dose: 4000mg in 24 hrs. 0 2 024 Discontinued(Ph armacist change per medication history (E-cancel not sent)) triamcinolone (ARISTOCORT) 0.1 % ointmentIndicati ons:Eczema, unspecified type Apply topically to affected area(s) three times daily. 80 g 1 3 024 Discontinued(Ph armacist change per medication history (E-cancel not sent)) mometasone-formo terol (Dulera) 200-5 mcg/actuation inhalerIndicatio ns:[place] (dyspnea on exertion),Bronch iolitis Inhale 2 Puffs by mouth two times daily. 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 [address] [place] [address] [facility] Hospitalists [facility], MD Mart Olivas, Stevo Arana MD Discharge Disposition: Home Self Care 07/06/2023 Travel 07/01/2023 6:31 PM HAY STACKER - 07/01/2023 10:57 PM HAY STACKER Emergency [facility] Emergency Department [address], [place] [address] Mari Ibarra MD Fatigue, unspecified type (Primary Dx); Lightheadedness Discharge Disposition: Home Self Care 07/01/2023 Travel 06/29/2023 9:59 AM HAY STACKER Anesthesia Event [facility] [address], [place] [address] Inna Molina MD 06/29/2023 9:15 AM HAY STACKER - 06/29/2023 1:38 PM HAY STACKER Surgery [facility] [address], [place] [address] Ahmet Levy MD LEFT CUTDOWN FEMORAL ARTERY; LEFT ENDARTERECTOMY; LEFT LOWER EXTREMITY ANGIOGRAM; ANGIOPLASTY 06/29/2023 5:54 AM HAY STACKER - 06/30/2023 3:30 PM HAY STACKER Hospital Encounter [facility] [address], [place] [address] Bella Benavidez MD Severe aortic stenosis (Primary Dx); Bicuspid aortic valve; Type 2 diabetes mellitus without complication, without long-term current use of insulin (HC); PAD (peripheral artery disease) (HC) Discharge Disposition: Home Self Care 06/29/2023 Travel 06/28/[address] [facility] [address], [place] [address] Leon Broussard NP <No scans attached> 06/23/2023 10:00 AM HAY STACKER Office Visit [facility] [address] [facility] [address] [place] [phone] Junior Castellanos MBBS CV Valve Est (VALVE EST:PRE-OP TAVR, LABS PRIOR,NEEDS EKG,KCCQ12, 5M WALK,LETTER SENT, HJK//PCP: Mali Robertson PA-C/) 06/23/2023 9:30 AM HAY STACKER Orders Only [facility] [address] [place] [address] Lab 06/23/2023 Telephone [facility] [address] [place] [address] TeetersPaul MD Results (CT results) 06/23/2023 Orders Only [facility] [address] [place] [address] Junior Castellanos MBBS <No scans attached> 06/23/2023 Travel 06/08/2023 Telephone [facility] [address] [place] [address] Bella Benavidez MD Surgery Scheduled (TAVR scheduling. ) 06/06/2023 Telephone [facility] [address] [place] [address] Bella Benavidez MD Health Maintenance Update (Dental Clearance Update) 06/02/2023 Telephone [facility] [address] [facility] [address] [place] [address] Bella Benavidez MD Health Maintenance Update (Schedule TAVR) 06/02/2023 Telephone [facility] [address] [facility] [address] [place] [address] Bella Benavidez MD Health Maintenance Update 05/30/2023 Refill [facility] [address] [place] [address] Dexter Lofton MD Refill Request (Metformin) 05/23/2023 Telephone [facility] [address] [place] [address] Bella Benavidez MD Health Maintenance Update (Post valve conference discussion /) 05/16/2023 3:30 PM HAY STACKER Office Visit [facility] [address] [place] [address] Ethel Salcido, Ronaldo Mcdaniel MD CV General Cardiology Est (ref: Carlito with CT prior//PCP: Mali Robertson PA-C/) 05/16/2023 1:55 PM HAY STACKER - 05/16/2023 11:59 PM HAY STACKER Hospital Encounter [facility] [address] [place] [address] Bella Benavidez MD Severe aortic stenosis 05/16/2023 Travel 05/15/2023 Telephone [facility] [address] [place] [address] Fatuma De Oliveira, [facility] 04/21/2023 Telephone [facility] [address] [place] [address] Bella Benavidez MD Imaging (Results/findings on recent CT scan ) 04/20/2023 3:00 PM HAY STACKER Office Visit [address] [place] [address] Bella Benavidez MD Consult; CV Valve New (TAVR) 04/20/2023 Telephone [facility] [address] [place] [address] Bella Benavidez MD Appointment 04/19/2023 2:30 PM HAY STACKER Office Visit [facility] [address] [phone] Abad Guaman MD Follow Up (yearly, Nonrheumatic aortic valve stenosis //Needs surgery clearance ) 04/19/[address] [place] [address] Abad Guaman MD Appointment 04/19/2023 Travel 04/14/2023 8:00 AM CDT Ancillary Procedure [facility] [address] [facility] [place] [address] 04/14/2023 Travel 04/13/2023 Transcribe Orders [facility] [address] [facility] [address] [place] [phone] Mali Robertson PA-C 04/12/2023 Orders Only [facility] Scanner 1 scan: (1-Ord) [facility], 04/12/2023 from Last 3 Months Immunizations Name Administration Dates Next Due COVID-19 vaccine (Moderna 100mcg/0.5mL) PF, MDV 08/19/2020,07/22/2020 COVID-19 vaccine (Pfizer-Bio NTech 30mcg/0.3mL) 12YO+ BIVALENT PF, MDV 05/10/2022 HepA-HepB (Twinrix) 08/19/2003 Hepatitis B (Adult) [...] 2 Heart Disease Father d 85 yo [place] aft er hip fracture Arthritis Mother Heart [...] Sign Reading Time Taken Comments Blood Pressure 126/75 07/06/2023 8:10 AM HAY STACKER Pulse 84 07/06/2023 8:10 AM HAY STACKER Temperature 36.8 ??C (98.2 ??F) 07/06/2023 8:10 AM CS T Respiratory Rate 18 07/06/2023 8:10 AM HAY STACKER Oxygen Saturation 95% 07/06/2023 8:10 AM HAY STACKER Inhaled Oxygen Concentration - - Weight 77 kg (169 lb 12.1 oz) 07/06/2023 4:57 AM HAY STACKER Height 170.2 cm (5' 7) 07/01/2023 6:27 PM HAY STACKER Body Mass Index 26.59 07/01/2023 6:27 PM HAY STACKER Plan of Treatment Upcoming Encounters Date Type Department Care Team (Late st Contact Info) Description 07/26/2023 8:00 AM HAY STACKER Orders Only [facility] [address] [place] [address] 07/28/2023 2:20 PM HAY STACKER Orders Only [facility] [address] [place] [phone] 07/28/2023 2:30 PM HAY STACKER Appointment [facility] [address] [place] [address] 07/28/2023 4:30 PM HAY STACKER Office Visit [facility] [address] [place] [phone] Junior Castellanos MBBS [address] [place] [address] 08/16/2023 1:00 PM HAY STACKER Appointment [facility] [address] [place] [address] 08/16/2023 2:00 PM HAY STACKER Office Visit [facility] [address] [place] [address] Ahmet Levy MD [address] [place] [address] Goals Goal Patient Goal Type Associated Problems Recent Progress Patient-Stated? Author BLOOD PRESSURE - MAINTAINS BP less than 140/90 Blood Pressure No Arya Stone MD Medical Devices Implanted Type Area Materials Tech Device Identifier Shelf Expiration Date Model / Serial / Lot [id number] e Canclls Crushed 60cc [] Implanted:Qty: 1 on 08/22/2006 at [facility] Explanted:at [facility] (Quantity not on file) Spine Allosource 05/17/2011 [id number]# / [id number] / [id number] e Canclls Crushed 30cc [[id number]] Implanted:Qty: 1 on 08/22/2006 at [facility] Explanted:at [facility] (Quantity not on file) Spine Allosource 11/16/2010 [id number]# / [id number] / Vesna Dayanara [id number] - [id number] Implanted:Qty: 6 on 08/22/2006 at [facility] Spine HOWMEDICA [id number]# / / Screw Polyaxial 6.5x45mm - [id number] Implanted:Qty: 6 on 08/22/2006 at [facility] Spine [employer] [id number]# / / Marin Dayanara Rad 70mm 108mm Radius - [id number] Implanted:Qty: 2 on 08/22/2006 at [facility] Spine [employer] [id number]# / / Wedge Tag Acufex 3.7mm - [id number] Implanted:Qty: 3 on 08/25/2011 at [facility] Left: Shoulder [employer] [id number]# / / [id number] Screw Cerv Ant 4x15mm Puhi Translational Va Slf Drill - [id number] Implanted:Qty: 3 on 03/04/2022 by Donald Alba MD at [facility] N/A: Spine Medtronic Spine/Ortho [id number] / / Plate Cerv 1lvl 25mm Puhi Vision Elite Ant - [id number] Implanted:Qty: 1 on 03/04/2022 by Donald Alba MD at [facility] N/A: Spine Medtronic Spine/Ortho [id number] / / [id number] e Matrix 1cc Pope Plus Paste Dbm Implanted:Qty: 1 on 03/04/2022 by Donald Alba MD at [facility] Explanted:at [facility] (Quantity not on file) N/A: Spine Medtronic Spine/Ortho 10/12/2023 [id number] / [id number] / [id number] Spinal Graft Block Robert Implanted:Qty: 1 on 03/04/2022 by Donald Alba MD at [facility] Explanted:at [facility] (Quantity not on file) N/A: Spine Medtronic Spine/Ortho 02/24/2024 [id number] / [id number] / Screw Cerv Ant 4x13mm Puhi Translational Va Slf Drill - [id number] Implanted:Qty: 1 on 03/04/2022 by Donald Alba MD at [facility] N/A: Spine Medtronic Spine/Ortho [id number] / / Tissue Pericardium 0.8x8cm Photofix Bovine - [id number] Implanted:Qty: 1 on 06/29/2023 by Ahmet Levy MD at [facility] Left: Groin Cryolife Inc 02/03/2025 [id number] / / [id number] Description:CryoLife PhotoFi x Decellularized Bovine Pericardium 0.8cm x 8cm; Lot Number [id number]; Reference Number [id number]; Implanted to the left groin by Dr. Levy on 06/29/2023 Procedures Procedure Name Priority Date/Time Associated Diagnosis Comments GLUCOSE METER Timed 07/06/2023 12:13 PM HAY STACKER US ARTERIAL LOWER EXTREMITY PSEUDOANEURYSM LEFT SHEN 07/06/2023 11:09 AM HAY STACKER SCAN-CARDIAC STRIP 07/06/2023 8: 05 AM HAY STACKER GLUCOSE METER Timed 07/06/2023 7:24 AM HAY STACKER PROTIME-INR STAT 07/06/2023 6:34 AM HAY STACKER HEMOGLOBIN STAT 07/06/2023 6:34 AM HAY STACKER SCAN-CARDIAC STRIP 07/06/2023 5: 40 AM HAY STACKER XR CHEST 1 VIEW PORTABLE STAT 07/01/2023 9:16 PM HAY STACKER US ARTERIAL LOWER EXTREMITY PSEUDOANEURYSM LEFT STAT 07/01/2023 8:20 PM HAY STACKER LACTATE SCREEN VENOUS ISTAT W QUEEN Timed 07/01/2023 7:50 PM HAY STACKER TYPE & SCREEN STAT 07/01/2023 7:41 PM HAY STACKER TROPONIN T (HS) ONE TIME Timed 07/01/2023 7:41 PM HAY STACKER PROTIME-INR STAT 07/01/2023 7:41 PM HAY STACKER EXTRA TUBE QUEEN ON ICE STAT 07/01/2023 7:40 PM HAY STACKER ISTAT LACTATE SCREEN VENOUS STAT 07/01/2023 7:40 PM HAY STACKER BASIC METABOLIC PANEL STAT 07/01/2023 6:47 PM HAY STACKER TROPONIN T (HS) ACUTE W/2HR REFLEX STAT 07/01/2023 6:47 PM HAY STACKER PRO-BNP STAT 07/01/2023 6:47 PM HAY STACKER CBC W PLT NO DIFF STAT 07/01/2023 6:4 6 PM HAY STACKER EKG 12 LEAD STAT 07/01/2023 6:28 PM HAY STACKER GLUCOSE METER Timed 06/30/2023 10:57 AM HAY STACKER SCAN-CARDIAC STRIP 06/30/2023 10:36 AM HAY STACKER MAGNESIUM Early AM 06/30/2023 8:00 AM HAY STACKER BASIC METABOLIC PANEL Early AM 06/30/2023 8:00 AM HAY STACKER CBC W PLT NO DIFF Early AM 06/30/2023 7:5 9 AM HAY STACKER GLUCOSE METER Timed 06/30/2023 7:31 AM HAY STACKER EKG 12 LEAD SHEN 06/30/2023 6:22 AM HAY STACKER SCAN-CARDIAC STRIP 06/30/2023 4: 01 AM HAY STACKER GLUCOSE METER Timed 06/29/2023 9:40 PM HAY STACKER HEMOGLOBIN Today 06/29/2023 5:52 PM HAY STACKER GLUCOSE METER Timed 06/29/2023 5:44 PM HAY STACKER GLUCOSE METER Timed 06/29/2023 4:46 PM HAY STACKER SCAN-CARDIAC STRIP 06/29/2023 3: 55 PM HAY STACKER ECHO TTE LIMITED WO CONTRAST W COLOR W LTD DOPPLER Routine 06/29/2023 3:54 PM HAY STACKER EKG 12 LEAD STAT 06/29/2023 2:11 PM HAY STACKER HCHG ACTIVATED CLOTTING TM CV Timed 06/29/2023 1:26 PM HAY STACKER HEMOGLOBIN STAT 06/29/2023 1:19 PM HAY STACKER GLUCOSE METER Timed 06/29/2023 1:04 PM HAY STACKER XR PELVIS 1 VIEW PORTABLE Routine 06/29/2023 12:07 PM HAY STACKER TRANSFUSE RBC (NURSE COMMUNICATION ORDER) STAT 06/29/2023 11:32 AM HAY STACKER COMPREHENSIVE BLOOD GAS ARTERIAL Timed 06/29/2023 11:22 AM HAY STACKER RBC W/O TYPE & SCREEN STAT 06/29/2023 11:11 AM HAY STACKER RED BLOOD CELLS EA UNIT STAT 06/29/2023 11:09 AM HAY STACKER RED BLOOD CELLS EA UNIT STAT 06/29/2023 11:09 AM HAY STACKER ENDOTRACHEAL TUBE Routine 06/29/2023 10:10 AM HAY STACKER ENDOTRACHEAL TUBE Routine 06/29/2023 10:10 AM HAY STACKER ENDOTRACHEAL TUBE Routine 06/29/2023 10:10 AM HAY STACKER ENDOTRACHEAL TUBE Routine 06/29/2023 10:10 AM HAY STACKER CUTDOWN FEMORAL ARTERY Class A Emergency 06/29/2023 9:44 AM HAY STACKER Perclose failure HCHG ACTIVATED CLOTTING TM CV Timed 06/29/2023 9:05 AM HAY STACKER CVL TAVR Routine 06/29/2023 8:49 AM HAY STACKER RBC W/O TYPE & SCREEN STAT 06/29/2023 7:38 AM HAY STACKER RED BLOOD CELLS EA UNIT STAT 06/29/2023 7:35 AM HAY STACKER RED BLOOD CELLS EA UNIT STAT 06/29/2023 7:35 AM HAY STACKER TYPE & SCREEN Preop 06/29/2023 6:20 AM HAY STACKER PROTIME-INR STAT 06/29/2023 6:20 AM HAY STACKER GLUCOSE, FASTING Preop 06/29/2023 6:20 AM HAY STACKER SCAN-CARDIAC STRIP 06/29/2023 12:00 AM HAY STACKER EKG 12 LEAD Routine 06/23/2023 9:43 AM HAY STACKER Aortic valve stenosis, etiology of cardiac valve disease unspecified P[facility] C[facility]TER QUESTION TEST Routine 06/23/2023 9:42 AM HAY STACKER Pre-op testing TYPE & SCREEN Routine 06/23/2023 9:42 AM HAY STACKER Pre-op testing PROTIME-INR Routine 06/23/2023 9:42 AM HAY STACKER Pre-op testing ALBUMIN Routine 06/23/2023 9:42 AM HAY STACKER Pre-op testing CBC W PLT NO DIFF Routine 06/23/2023 9:4 2 AM HAY STACKER Pre-op testing BASIC METABOLIC PANEL Routine 06/23/2023 9:42 AM HAY STACKER Pre-op testing CTA CHEST ABD PELVIS TAVR - DUAL READ Routine 05/16/2023 2:46 PM HAY STACKER Severe aortic stenosis CREATININE,ISTAT Routine 05/16/2023 2:23 PM HAY STACKER HEMATOCRIT/HGB,ISTAT Routine 05/16/2023 2:18 PM HAY STACKER EKG 12 LEAD Routine 04/20/2023 Paroxysmal atrial fibrillation (HC) ECHO TTE COMPLETE WO CONTRAST Routine 04/14/2023 8:45 AM CDT Murmur SCAN-LABORATORY REPORT 04/12/2023 12:00 AM CDT from Last 3 Months Results * (ABNORMAL) GLUCOSE METER (07/06/2023 12:13 PM HAY STACKER) Only the most recent of8 resultswithin the time period is included. GLUCOSE METER 135(H) 65 - 100 mg/dL 07/06/2023 12:15 PM HAY STACKER [facility] Blood BLOOD SPECIMEN / Unknown 07/06/2023 12:13 PM HAY STACKER 07/06/2023 12:15 PM HAY STACKER Stevo Cevallos MD CHEMISTRY [facility] [address] [place] [address], * US ARTERIAL LOWER EXTREMITY PSEUDOANEURYSM LEFT (07/06/2023 11:09 AM HAY STACKER) Only the most recent of2 resultswithin the time period is included. Anatomical Region Laterality Modality LEG L Ultrasound 07/06/2023 11:3 6 AM HAY STACKER Impressions 07/06/2023 11:36 AM HAY STACKER 1. 2.7 cm hematoma in the left inguinal region. No sonographic evidence of pseudoaneurysm or arteriovenous fistula. Dictated by Marvin Cheema MD @ 07/06/2023 11:36:57 AM (Electronically Signed) Narrative 07/06/2023 11:36 AM HAY STACKER For Patients: ??As a result of the Century Cures Act, medical imaging exams and procedure reports are released immediately into your electronic medical record. ??You may view this report before your referring provider. ??If you have questions, please contact your health care provider. HISTORY: Left groin pain. History of failed vascular closure device. TECHNIQUE: Grayscale ultrasound examination of the left inguinal region(s) with 2D and spectral analysis and color Doppler interrogation of the femoral vessels. COMPARISON: None. FINDINGS: No sonographic evidence of pseudoaneurysm or arteriovenous fistula in the left inguinal region. 2.4 x 0.9 x 2.7 cm hematoma is present. Multiphasic waveforms in the visualized external iliac, common femoral, and superficial femoral arteries. Normal triphasic waveforms are seen in the veins. Procedure Note Marvin Cheema MD - 07/06/2023 For Patients: As a result of the Cures Act, medical imagingexams and procedure reports are released immediately into your electronicmedical record. You may view this report before your referring provider.If you have questions, please contact your health care provider. HISTORY: Left groin pain. History of failed vascular closure device. TECHNIQUE: Grayscale ultrasound examination of the left inguinal region(s) with 2Dand spectral analysis and color Doppler interrogation of the femoralvessels. COMPARISON: None. FINDINGS: No sonographic evidence of pseudoaneurysm or arteriovenous fistula in theleft inguinal region. 2.4 x 0.9 x 2.7 cm hematoma is present. Multiphasicwaveforms in the visualized external iliac, common femoral, andsuperficial femoral arteries. Normal triphasic waveforms are seen in theveins. IMPRESSION: 1. 2.7 cm hematoma in the left inguinal region. No sonographic evidence ofpseudoaneurysm or arteriovenous fistula. Dictated by Marvin Cheema MD @ 07/06/2023 11:36:57 AM (Electronically Signed) Mali Dominique MD US * SCAN-CARDIAC STRIP (07/06/2023 8:05 AM HAY STACKER) Scanner OTHER * (ABNORMAL) HEMOGLOBIN (07/06/2023 6:34 AM HAY STACKER) Only the most recent of3 resultswithin the time period is included. HEMOGLOBIN 8.5(L) 13.5 - 17.5 g/dL 07/06/2023 7:06 AM HAY STACKER [facility] MCV 85 80 - 100 fL 07/06/2023 7:06 AM HAY STACKER [facility] Blood BLOOD SPECIMEN / Unknown Venipuncture / Unknown 07/06/2023 6:34 AM HAY STACKER 07/06/2023 6:55 AM HAY STACKER Donald Lee MD HEMATOLOGY Performing Organization Address [facility] Co de Phone Number [facility] [address] [place] [address] [address], * (ABNORMAL) INR AM (07/06/2023 6:34 AM HAY STACKER) Only the most recent of4 resultswithin the time period is included. INR 1.6(H) <1.3 07/06/2023 7:06 AM HAY STACKER [facility] PROTIME 17.8(H) 10.3 - 12.3 sec 07/06/2023 7:06 AM HAY STACKER [facility] Blood BLOOD SPECIMEN / Unknown Venipuncture / Unknown 07/06/2023 6:34 AM HAY STACKER 07/06/2023 6:55 AM HAY STACKER Narrative [facility] - 07/06/2023 7:06 AM HAY STACKER ?Therapeutic Range 2.0-3.0 for most anticoagulated patients [...] seconds if the patient is on UFH. Donald Lee MD HEMATOLOGY Performing Organization Address [facility] Co de Phone Number [facility] [address] [address], * SCAN-CARDIAC STRIP (07/06/2023 5:40 AM HAY STACKER) Scanner OTHER * XR CHEST 1 VIEW PORTABLE (07/01/2023 9:16 PM HAY STACKER) Anatomical Region Laterality Modality HEART, THORAX, CHEST Digital Rad iography 07/01/2023 9:19 PM HAY STACKER Narrative 07/01/2023 9:19 PM HAY STACKER For Patients: ??As a result of the [...] Mari Ibarra MD GENERAL IMAG ING * LACTATE SCREEN VENOUS ISTAT W QUEEN (07/01/2023 7:50 PM HAY STACKER) LACTATE VENOUS SCREEN ISTAT <1.8 <=2.0 07/01/2023 7:54 PM HAY STACKER [facility] LACTATE SCREEN VENOUS POCT 1.5 <=2.0 07/01/2023 7:54 PM HAY STACKER [facility] Blood BLOOD SPECIMEN / Unknown 07/01/2023 7:50 PM HAY STACKER 07/01/2023 7:54 PM HAY STACKER Mari Ibarra MD LABORATORY Performing Organization Address City/[facility]/ZIP Co de Phone Number [facility] [address] [place] [address], [place] * (ABNORMAL) TROPONIN T (HS) ONE TIME (07/01/2023 7:41 PM HAY STACKER) Pathologist [facility] TROPONIN T HS 74(H) 6-15 ng/L ng/L 07/01/2023 8:14 PM HAY STACKER [facility] Blood BLOOD SPECIMEN / Unknown Butterfly / Unknown 07/01/2023 7:41 PM HAY STACKER 07/01/2023 7:49 PM HAY STACKER Anw Ed Triage CHEMISTRY Performing Organization Address [facility] Co de Phone Number [facility] [address] [place] [address], [place] * TYPE AND SCREEN ONLY (07/01/2023 7:41 PM HAY STACKER) Only the most recent of3 resultswithin the time period is included. Pathologist [facility] ABORH A Rh Positive 07/01/2023 10:05 PM HAY STACKER [facility] [employer]-CENTRAL LAB BLOOD BANK ANTIBODY SCREEN Negative Negative 07/01/2023 10:05 PM HAY STACKER [facility] [employer]-[facility]AL LAB BLOOD BANK SPECIMEN EXPIRATION DATE/TIME 07/04/23 23:59 07/01/2023 10:05 PM HAY STACKER [facility] [employer]-C[facility]TRAL LAB BLOOD BANK Blood BLOOD SPECIMEN / Unknown Butterfly / Unknown 07/01/2023 7:41 PM HAY STACKER 07/01/2023 9:29 PM HAY STACKER Mari Ibarra MD BLOOD BANK Performing Organization Address City/[facility]/ZIP Co de Phone Number [facility] [employer] HoldingsCENTRAL LAB BLOOD BANK [address] [place] [address], * EXTRA TUBE [place] ON ICE (07/01/2023 7:40 PM HAY STACKER) Blood BLOOD SPECIMEN / Unknown Butterfly / Unknown 07/01/2023 7:40 PM HAY STACKER 07/01/2023 7:51 PM HAY STACKER Mari Ibarra MD LABORATORY [facility] [address] [place] [address], * (ABNORMAL) TROPONIN T (HS) ACUTE W/2HR REFLEX (07/01/2023 6:47 PM HAY STACKER) TROPONIN T HS 71(H) 6-15 ng/L ng/L 07/01/2023 7:25 PM HAY STACKER [facility] LAB[facility] Blood BLOOD SPECIMEN / Unknown Venipuncture / Unknown 07/01/2023 6:47 PM HAY STACKER 07/01/2023 6:52 PM HAY STACKER Narrative [facility] - 07/01/2023 7:25 PM HAY STACKER hs-cTnT (Elecsys Troponin T Gen 5) concentration [...] low risk in emergency department patient population. Anw Ed Triage [facility]AL LABORATORY [address] [place] [address], * (ABNORMAL) PRO-BNP (07/01/2023 6:47 PM HAY STACKER) PRO-BNP 372(H) <125 pg/mL 07/01/2023 7:26 PM HAY STACKER [facility] Blood BLOOD SPECIMEN / Unknown Venipuncture / Unknown 07/01/2023 6:47 PM HAY STACKER 07/01/2023 6:52 PM HAY STACKER Narrative [facility] - 07/01/2023 7:26 PM HAY STACKER The following cut-points have been suggested for [...] 72% for acute congestive heart failure. ? Anw Ed Triage SEND OUTS [facility] [address] [place] [address], * (ABNORMAL) BASIC METABOLIC PANEL (07/01/2023 6:47 PM HAY STACKER) Only the most recent of3 resultswithin the time period is included. SODIUM 140 136 - 145 mmol/L 07/01/2023 7:25 PM [facility] TRAL LABORATORY POTASSIUM 4.3 3.5 - 5.1 mmol/L 07/01/2023 7:25 PM [facility] TRAL LABORATORY CHLORIDE 103 98 - 107 mmol/L 07/01/2023 7:25 PM [facility] TRAL LABORATORY CO2,TOTAL 27 22 - 29 mmol/L 07/01/2023 7:25 PM [facility] TRAL LABORATORY ANION GAP 10 5 - 18 07/01/2023 7:25 PM [facility] TRAL LABORATORY GLUCOSE 136(H) 70 - 99 mg/dL 07/01/2023 7:25 PM [facility] TRAL LABORATORY CALCIUM 9.1 8.8 - 10.2 mg/dL 07/01/2023 7:25 PM [facility] TRAL LABORATORY BUN 18 8 - 23 mg/dL 07/01/2023 7:25 PM [facility] TRAL LABORATORY CREATININE 0.97 0.70 - 1.20 mg/dL 07/01/2023 7:25 PM [facility] TRAL LABORATORY BUN/CREAT RATIO 19 10 - 20 4 7:25 PM [facility] TRAL LABORATORY eGFR 85(L) >90 mL/min/1.7 3m2 07/01/2023 7:25 PM [facility] TRAL LABORATORY Comment:As of 2021, eG FR is calculated by the CKD-EPI creatinine equation without race adjustment. ??eGFR can be influenced by muscle mass, exercise, and diet. ??The reported eGFR is an estimation only and is only applicable if the renal function is stable. Blood BLOOD SPECIMEN / Unknown Venipuncture / Unknown 07/01/2023 6:47 PM HAY STACKER 07/01/2023 6:52 PM HAY STACKER Anw Ed Triage CHEMISTRY [facility] [address] [place] [address], * (ABNORMAL) CBC W PLT NO DIFF (07/01/2023 6:46 PM HAY STACKER) Only the most recent of3 resultswithin the time period is included. WHITE BLOOD COUNT 10.0 4.5 - 11.0 thou/cu mm 07/01/2023 6:55 PM [facility] TRAL LABORATORY RED BLOOD COUNT 3.28(L) 4.30 - 5.90 mil/cu mm 07/01/2023 6:55 PM HAY STACKER [facility] TRAL LABORATORY HEMOGLOBIN 9.2(L) 13.5 - 17.5 g/dL 07/01/2023 6:55 PM [facility] TRAL LABORATORY HEMATOCRIT 27.6(L) 37.0 - 53.0 % 07/01/2023 6:55 PM [facility] TRAL LABORATORY MCV 84 80 - 100 fL 07/01/2023 6:55 PM [facility] TRAL LABORATORY MCH 28.0 26.0 - 34.0 pg 07/01/2023 6:55 PM HAY STACKER [facility] TRAL LABORATORY MCHC 33.3 32.0 - 36.0 g/dL 07/01/2023 6:55 PM HAY STACKER [facility] TRAL LABORATORY RDW 13.9 11.5 - 15.5 % 07/01/2023 6:55 PM [facility] TRAL LABORATORY PLATELET COUNT 280 140 - 440 thou/cu mm 07/01/2023 6:55 PM [facility] TRAL LABORATORY MPV 9.6 6.5 - 11.0 fL 07/01/2023 6:55 PM HAY STACKER [facility] TRAL LABORATORY NRBC 0.0 % 07/01/2023 6:55 PM HAY STACKER [facility] TRAL LABORATORY ABS NRBC 0.0 thou /cu mm 07/01/2023 6:55 PM HAY STACKER [facility] TRAL LABORATORY Blood BLOOD SPECIMEN / Unknown Venipuncture / Unknown 07/01/2023 6:46 PM HAY STACKER 07/01/2023 6:52 PM HAY STACKER Narrative [facility] - 07/01/2023 6:55 PM HAY STACKER RN to order if patient presents with shortness of breath or wheezing. Anw Ed Triage HEMATOLOGY Performing Organization Address City/[facility] Co de Phone Number [facility] [address] [place] [address], * EKG 12 LEAD (07/01/2023 6:28 PM HAY STACKER) Only the most recent of5 resultswithin the time period is included. Interpretation Sinus rhythm with Premature supraventricular complexes Left bundle branch block Abnormal ECG BEYOND NOW Ventricular Rate 90 BPM BEYOND NOW Atrial Rate 90 BPM BEYOND NOW P-R Interval 178 ms BEYOND NOW QRS Duration 128 ms BEYOND NOW QT 396 ms BEYOND NOW QTc 484 ms BEYOND NOW P [place] 72 degrees BEYOND NOW R [place] 72 degrees BEYOND NOW T [place] 131 degrees BEYOND NOW 07/01/2023 6:28 PM HAY STACKER 07/02/2023 2:37 PM HAY STACKER Anw Ed Triage EKG ORD Performing Organization Address City/[facility] Co de Phone Number BEYOND NOW [place], [place] * SCAN-CARDIAC STRIP (06/30/2023 10:36 AM HAY STACKER) Scanner OTHER * MAGNESIUM (06/30/2023 8:00 AM HAY STACKER) Pathologist [facility] MAGNESIUM 1.6 1.6 - 2.4 mg/dL 06/30/2023 9:12 AM HAY STACKER [facility] LABORAT[facility] Blood BLOOD SPECIMEN / Unknown Venipuncture / Unknown 06/30/2023 8:00 AM HAY STACKER 06/30/2023 8:07 AM HAY STACKER Bella Benavidez MD CHEMISTRY [facility] LABORATORY-CENTRAL LABORATORY [address] [place] [address], * SCAN-CARDIAC STRIP (06/30/2023 4:01 AM HAY STACKER) Scanner OTHER * SCAN-CARDIAC STRIP (06/29/2023 3:55 PM HAY STACKER) Scanner OTHER * ECHO TTE LIMITED WO CONTRAST W COLOR W LTD DOPPLER (06/29/2023 3:54 PM HAY STACKER) AORTIC VALVE MEAN PG 11 mmHg LVEDD 4.7 cm EJECTION FRACTION 60 - 65% Anatomical Region Laterality Modality Ultrasound 06/29/2023 3:10 PM HAY STACKER Narrative 06/29/2023 5:05 PM HAY STACKER ECHOCARDIOGRAM VILMA UGARTE ?Accession#: ?? [id number] : ?1955 68 years Study Date: ?? 06/29/2023 3:10:34 PM Gender: M ? BP: ? 130/58 mmHg Height: 170.00 cm ? BSA: ?1.92 m? ? ? Weight: 80.00 kg ?Tech: ? ASHLEY ?Referring MD: LEON BROUSSARD Site: ? [facility] Reading Location: ANW IP Patient Location: Inpatient. Procedure: Limited 2D , [...] . This study was interpreted by an [facility] accredited facility. ??Final ?? Procedure Note Roc Thakur MD - 06/29/2023 ECHOCARDIOGRAM VILMA UGARTE : 1955 68 years Study Date: 06/29/2023 3:10:34 PM Gender: M BP: 130/58 mmHg Height: 170.00 cm BSA: 1.92 m? ? ? Weight: 80.00 kg Tech: ASHLEY Harper MD: ELON BROUSSARD Site: [facility] Reading Location: [facility] Patient Location: Inpatient. Procedure: Limited 2D , [...] . This study was interpreted by an [facility] accredited facility. Final Leon Broussard NEW HOME SALES CONSULTANT ECHO ORD * (ABNORMAL) ACTIVATED CLOTTING TIME [id number] ACT (06/29/2023 1:26 PM HAY STACKER) Only the most recent of2 resultswithin the time period is included. ACTIVATED CLOTTING TIME, POCT 143(H) 74 - 125 sec 06/29/2023 3:03 PM HAY STACKER [facility] LABORATORY-[facility] LABORATORY Blood BLOOD SPECIMEN / Unknown 06/29/2023 1:26 PM HAY STACKER 06/29/2023 3:03 PM HAY STACKER Bella Benavidez MD HEMATOLOGY [facility] LABORATORY-CENTRAL LABORATORY [address] [place] [address], [place] * XR PELVIS 1 VIEW PORTABLE (06/29/2023 12:07 PM HAY STACKER) Anatomical Region Laterality Modality Pelvis Digital Radiogra phy 06/29/2023 12:3 5 PM HAY STACKER Narrative 06/29/2023 12:35 PM HAY STACKER For Patients: ??As a result of the [...] PM (Electronically Signed) Procedure Note Stephania Farrar, - 06/29/2023 For Patients: As a result [...] RBC (NURSE COMMUNICATION ORDER) (06/29/2023 11:32 AM HAY STACKER) Blood BLOOD SPECIMEN / Unknown Bella Benavidez MD NURSING BLOOD BANK * (ABNORMAL) COMPREHENSIVE BLOOD GAS ARTERIAL (06/29/2023 11:22 AM HAY STACKER) PH, ARTERIAL 7.39 7.35 - 7.45 06/29/2023 11:[address] [facility] LABORATORY- [facility] LABORATORY PCO2, ARTERIAL 41 35 - 48 mmHg 06/29/2023 11:22 AM [facility] NTRNJ LABORATORY PO2, ARTERIAL 220(H) 83 - 108 mmHg 06/29/2023 11:[address] [facility] HCO3, ARTERIAL 25 21 - 28 mmol/L 06/29/2023 11:22 AM [facility] N[facility] LABORATORY BASE EXCESS, ARTERIAL -0.2 -2.0 - 3.0 06/29/2023 11:[address] [facility] LABORATORY- [facility] LABORATORY O2 SATURATION, ARTERIAL 100(H) 94 - 98 % 06/29/2023 11:[address] [facility] PATIENT TEMPERATURE 37.0 Degrees C 06/29/2023 11:[address] [facility] COLLECTION SITE ARTERIAL LINE 06/29/2023 11:[address] [facility] LABORAT[facility] HEMOGLOBIN,BLOO D GAS 8.2(L) 13.5 - 17.5 g/dL 06/29/2023 11:22 AM [facility] NTRNJ LABORATORY SODIUM 134(L) 136 - 145 mmol/L 06/29/2023 11:22 AM HAY STACKER [facility] LABORATORY-CE NTRAL LABORATORY POTASSIUM 4.8 3.5 - 5.1 mmol/L 06/29/2023 11:22 AM HAY STACKER [facility] [employer] LABORATORY-CE NTRAL LABORATORY CHLORIDE 108(H) 98 - 107 mmol/L 06/29/2023 11:22 AM HAY STACKER [facility] [employer] LABORATORY-CE NTRAL LABORATORY Blood BLOOD SPECIMEN / Unknown 06/29/2023 11:22 AM HAY STACKER 06/29/2023 11:23 AM HAY STACKER Bella Benavidez MD [facility] LABOR[facility]-CENTRAL LABORATORY [address] [place] [address], * RBC W/O TYPE & SCREEN (06/29/2023 11:11 AM HAY STACKER) Only the most recent of2 resultswithin the time period is included. QUANTITY 2 06/29/2023 11:11 AM HAY STACKER [facility] Blood BLOOD SPECIMEN / Unknown 06/29/2023 11:09 AM HAY STACKER Ahmet Levy MD BLOOD BANK Performing Organization Address [facility] Co de Phone Number [facility] BLOOD BANK [address] [place] [address], * RED BLOOD CELLS EA UNIT (06/29/2023 11:09 AM HAY STACKER) Only the most recent of4 resultswithin the time period is included. CROSSMATCH Compatible Compatible [employer]-CENTRAL LAB BLOOD BANK PRODUCT BLOOD TYPE A Rh Positive [employer] LAB BLOOD BANK PRODUCT ID NUMBER [id number] JiniCENTRAL LAB BLOOD BANK PRODUCT STATUS /Relea sed [employer] LAB BLOOD BANK PRODUCT DESCRIPTION RBC -1 LR [employer] LAB BLOOD BANK PRODUCT CODE [id number] [facility] BLOOD BANK Ahmet Levy MD BLOOD BANK Performing Organization Address City/[facility]/ZIP Co de Phone Number [facility] LAB-CENTRAL LAB BLOOD BANK [address] [place] [address], * HCHG TUBE PR1, HCHG INSTRUMENT DISP PR10, HCHG STYLET PR1, HCHG MOUTHPIECE PR1 (06/29/2023 10:10 AMCST) Narrative Carlos Briggs CRNA - 06/29/2023 10:10 AM HAY STACKER Carlos Briggs CRNA ? 06/29/2023 10:11 AM [...] ORDERABLES * CVL TAVR (06/29/2023 8:49 AM HAY STACKER) Anatomical Region Laterality Modality X-Ray Angiograph y, X-Ray Angiography 06/29/2023 8:49 AM HAY STACKER Narrative Transcriptions Bella Benavidez MD - 06/29/2023 11:08 AM CST [facility] Cardiac Catheterization Report Name: VILMA UGARTE Event Date: 06/29/2023 08:49 [employer] ID #: [id number] [facility] #: [id number] Diagnostic Physician: BELLA BENAVIDEZ [facility] Interventional Physician: BELLA BENAVIDEZ [facility] Referring Physician: Date: 1955 Gender: Male Age: 68 Summary/Conclusions PRESENTATION / INDICATIONS * Severe , TAVR per MD and patient choice VASCULAR ACCESS * Using [...] devices failed due to access site calcification. Cathyjosh was called into the room and ultimately [...] ? LV Pressure = 165/15. Consent & [place] Protocol The risks, benefits, and alternatives of the procedure were discussed withthe patient and written informed consent was obtained. [place] protocol was followed. TIME OUT conducted just prior tostarting procedure confirmed patient identity, site/side, procedure,patient position, and availability of correct equipment and implants (ifapplicable). Staff Name Title Jony Tan RN Neelam Bergeron RN Gabriela Brumfield RTR Monitor Vasiliy Herrera LIFE SCIENCE TAXONOMIST Intermission Coordinator Vera Marino CVT Intermission Coordinator Junior Castellanos Fellow Leon Broussard NP Physician Dairy Technician BELLA BENAVIDEZ Quality Assurance Assistant AHMET LEVY Vascular Surgeon Rachael Serna Fellow [...] Mellina RN 08:33 Versed 0.5 mg IV Bella Benavidez Mellina RN 08:47 Versed 1 mg IV Bella Benavidez Mellina RN 08:48 Fentanyl 50 mcg IV Bella Benavidez Mellina RN 08:49 1% Lidocaine 10 ml Subcut Emanuel, Junior Emanuel, Junior 08:55 1% Lidocaine 10 ml Subcut Emanuel, Junior Emanuel, Junior 08:58 Heparin 8000 units IV Bella Benavidez Mellina RN 09:02 O2 2 l per min Nasal cannula Bella Benavidez Mellina RN 09:08 Heparin 3000 units IV Bella Benavidez Mellina RN 09:12 Fentanyl 25 mcg IV Bella Benavidez Mellina RN 09:12 Versed 0.5 mg IV Bella Benavidez Mellina RN 09:23 O2 4 l per min Nasal cannula Bella Benavidez Mellina RN 09:35 Protamine 70 mg IV Bella Benavidez Mellina RN 09:38 Fentanyl 25 mcg IV Bella Benavidez Mellina RN 09:38 Versed 0.5 mg IV Bella Benavidez Mellina RN 09:42 Versed 0.5 mg IV GoesslBella Mellina RN 09:42 Fentanyl 25 mcg IV JadynslBella Mellina RN 09:49 Versed 0.5 mg IV GoesslBlela Mellina RN 09:49 Fentanyl 25 mcg IV GoesslBella Mellina RN 09:55 Fentanyl 25 mcg IV JadynsBella lieberman Mellina RN 09:55 Versed 0.5 mg IV JadynsBella lieberman Mellina RN I personally monitored the patient?s conscious sedation during theprocedure. Conscious sedation starts with the first sedation medication dose ofFentanyl or Versed and ends when the procedure is completed, the patientis stable for recovery status, and the physician or other qualified healthcare professional providing the sedation ends personal [id number] time with the patient. The medications listed above were verbally ordered by me and read back tome as documented above. Refer to the procedure log report for additional case details. electronically signed on 06/29/2023 11:08:03 AM with status of Final Bella Benavidez MD [facility] [address] [address] (p) (f) Bella Benavidez MD CV IMAGING * (ABNORMAL) Glucose, Fasting (06/29/2023 6:20 AM HAY STACKER) GLUCOSE 174(H) 70 - 99 mg/dL 06/29/2023 6:58 AM HAY STACKER [facility] [employer] [facility] LABORAT[facility] Blood BLOOD SPECIMEN / Unknown Venipuncture / Unknown 06/29/2023 6:20 AM HAY STACKER 06/29/2023 6:30 AM HAY STACKER Leon Broussard [employer] HOME SALES CONSULTANT [facility] [address] [address], * SCAN-CARDIAC STRIP (06/29/2023 12:00 AM HAY STACKER) Narrative 06/29/2023 12:00 AM HAY STACKER Ordered by an unspecified provider. Other Clinical Staff OTHER * [place] CUTTER QUESTION TEST (06/23/2023 9:42 AM HAY STACKER) QABT Question Yes 06/23/2023 9:56 AM HAY STACKER [facility] [employer] TechnologiesCENTRAL LAB BLOOD BANK Blood BLOOD SPECIMEN / Unknown Venipuncture / Unknown 06/23/2023 9:42 AM HAY STACKER 06/23/2023 9:50 AM HAY STACKER Bella Benavidez MD BLOOD BANK [facility] [address] [place] [address], * ALBUMIN (06/23/2023 9:42 AM HAY STACKER) ALBUMIN 4.1 4.0 - 4.9 g/dL 06/23/2023 10:19 AM HAY STACKER [facility] AL LABORATORY Blood BLOOD SPECIMEN / Unknown Venipuncture / Unknown 06/23/2023 9:42 AM HAY STACKER 06/23/2023 9:50 AM HAY STACKER Bella Benavidez MD CHEMISTRY Performing Organization Address City/[facility]/ZIP Co de Phone Number [facility] [address] [place] [address], [place] * CTA CHEST ABD PELVIS TAVR - DUAL READ (05/16/2023 2:46 PM HAY STACKER) Anatomical Region Laterality Modality CHEST, Abdomen, Pelvis Computed Tomography Impressions 05/18/2023 3:24 PM HAY STACKER 1. Please see separate dictation for all [...] PM (Electronic Signature) Narrative 05/18/2023 3:24 PM HAY STACKER Images from the original result were not [...] PATIENT: Results are automatically released to your [employer]) account once available, in compliance with federal regulations. ?? This means that you may see your results before your provider has had a chance to review them. ??Please allow 2-3 business days for your provider to comment on the results. Cardiac Imaging Fellow: Monae Chamorro MD Reading Brusher: Donald Sánchez MD MPH [facility] 05/16/2023 For Patients: As a result of the 21st Century Cures Act, medical imaging exams and [...] chest, abdomen and pelvis was performed per [facility] protocol. Please see Cardiology dictation for details on technique. ?? 100 cc Omnipaque-350 intravenous contrast. ?? This exam is being performed in conjunction with the services provided by the [facility] ([facility]). CLINICAL HISTORY: Over-read of non-cardiovascular structures [...] MD CT * CREATININE,ISTAT (05/16/2023 2:23 PM HAY STACKER) CREATININE, POCT 0.60 0.57 - 1.11 mg/dL 05/16/2023 2:57 PM HAY STACKER [facility] eGFR >90 >90 mL/min/1.7 3m2 05/16/2023 2:57 PM HAY STACKER [facility] Comment:As of 2021, eG FR is calculated by the CKD-EPI creatinine equation without race adjustment. eGFR can be influenced by muscle mass, exercise, and diet. The reported eGFR is an estimation only and is only applicable if the renal function is stable. Blood BLOOD SPECIMEN / Unknown 05/16/2023 2:23 PM HAY STACKER 05/16/2023 2:57 PM HAY STACKER Bella Benavidez MD CHEMISTRY Performing Organization Address [facility] Co de Phone Number [facility] [address] [place] [address], * (ABNORMAL) HEMATOCRIT/HGB,ISTAT (05/16/2023 2:18 PM HAY STACKER) HEMATOCRIT, POCT 37.0 37.0 - 53.0 % 05/16/2023 2:57 PM HAY STACKER [facility] LABORATORY-[facility] TRAL LABORATORY HEMOGLOBIN, POCT 12.6(L) 13.5 - 17.5 g/dL 05/16/2023 2:57 PM HAY STACKER [facility] TRAL LABORATORY Blood BLOOD SPECIMEN / Unknown 05/16/2023 2:18 PM HAY STACKER 05/16/2023 2:57 PM HAY STACKER Bella Benavidez MD CHEMISTRY Performing Organization Address [facility] de Phone Number [facility] [address] [place] [address], * ECHO TTE COMPLETE WO CONTRAST (04/14/2023 8:45 AM CDT) AORTIC VALVE MEAN PG 36 mmHg EJECTION FRACTION 79 % PEAK TR VELOCITY 2.6 m/s LVEDD 4.3 cm EJECTION FRACTION 70 - 75% Anatomical Region Laterality Modality Ultrasound 04/14/2023 7:56 AM CDT Narrative 04/14/2023 9:08 AM CDT ECHOCARDIOGRAM VILMA UGARTE ?Accession#: ?? [id number] : ?1955 68 years Study Date: ?? 04/14/2023 7:56:53 AM Gender: M ? BP: ? 136/68 mmHg Height: 170.00 cm ? BSA: ?1.96 m? ? ? Weight: 84.00 kg ?Tech: ? MTS ?Referring MD: MALI ROBERTSON Site: ? [facility] Reading Location: MOBILE OP Patient Location: Outpatient. [...] . This study was interpreted by an [facility] accredited facility. CC: HIM ([facility]) [facility]. ??Final ?? Procedure Note Abad Guaman MD - 04/14/2023 ECHOCARDIOGRAM VILMA UGARTE : 1955 68 years Study Date: 04/14/2023 7:56:53 AM Gender: M BP: 136/68 mmHg Height: 170.00 cm BSA: 1.96 m? ? ? Weight: 84.00 kg Tech: [facility] Referring MD: MALI ROBERTSON Site: [facility] Reading Location: MOBILE OP Patient [...] interpreted by an [facility] accredited facility. CC: NELI (med records) [facility]. Final Mali Robertson PA-C ECHO ORD * SCAN-LABORATORY REPORT (04/12/2023 12:00 AM CDT) Scanner OTHER from Last 3 Months Advance Directives Latest Code Status on File Code Status Date Activated Date Inactivated Comments Full Code 07/06/2023 5:39 AM 07/06/2023 7:46 PM Question Answer Comments Code Status Discussion: Reviewed Preferences Code Status History Code Status Date Activated Date Inactivated Comments Full Code 06/29/2023 10:24 AM 06/30/2023 6:35 PM Question Answer Comments Code Status Discussion: Reviewed Preferences Full Code 06/16/2022 11:09 AM 06/16/2022 5:25 PM Question Answer Comments Code Status Discussion: Reviewed Preferences Full Code 03/04/2022 7:30 AM 03/05/2022 2:28 PM Question Answer Comments Code Status Discussion: Per Existing Order Full Code 12/15/2015 8:24 AM 12/16/2015 1:04 PM Care Teams Industrial Coffee Grinder Relationship Specialty Start Date End Date Mali Robertson PA-C [address] [place] [address] PCP - General Emergency Medicine 04/20/23 Paul Soler MD [address] [place] [address] Pulmonology Pulmonary Medicine 09/30/22
== END 2023-07-06 03:49 | disposition home or self-care (01) ==
LOC: AMB 07-07 12:44
PROVIDERS: PCP Physician Assistant Medical; Visit Provider Family Medicine
DX: I35.0 Nonrheumatic aortic (valve) stenosis (principal); I25.10 Atherosclerotic heart disease of native coronary artery without angina pectoris; I50.22 Chronic systolic (congestive) heart failure
CPT/HCPCS: A0425; A0426

== ENCOUNTER 2023-07-07 08:54 | Outpatient (CLI) | payer MEDICARE, BC, SELFPAY ==
--- OUTSIDE RECORDS SUMMARY | 2023-07-11 11:35 | XMS_ITS | Continuity of Care Document ---
Author Name Unknown Organization Z [facility] Address [address] [place] [address] Phone Care Team Providers Care Interactive Media Marketing Director Name Role Phone Sumit Castillo MD Unavailable [...] Date Provider Providers Copied on Encounter [facility], [address], [place], [address], [place] tel:[phone] [facility] - [place] No Information 8 Jonathan Arana. [facility], [address], [place], [place], [id number] , [place]. [phone] Office/outpat ient visit,est, low Z [facility], [address], [place], [address], [place] tel:[phone] [facility] - [place] No Information Apr-1 0-200 8 Mehbod Amir. [facility], [address] [place] [address] [address], [place], [place], [id number] , [place]. tel:[phone] Referring Provider: Mckinley Cardona, [facility], [place], [address]. tel:[phone] Office/outpat ient visit,est, low Z [facility], [address] [place], [place] [address], [place], [place], [facility], [place] tel:[phone] [facility] - [place] No Information Jan-0 9-200 7 Mehbod Amir. [facility], [address] [place] [address] [address], [place], [place], [id number] , [place]. [phone] Referring Provider: Mckinley Cardona, [facility] Yadira [facility], [place], [address]. tel:[phone] Office/outpat ient visit,est, low Z [facility], [address] [place], [place] [address]ite [facility], [place], [address], [place] tel:[phone] [facility] No Information Bong-2 8-200 7 Mehbod Amir. [facility], [address], [place], [place], [id number] , [place]. [phone] Referring Provider: Mckinley Cardona, [facility] Yadira [facility], [place], [address]. tel:[phone] Z [facility], [address] [place], [place] [address] [address], [place], [facility], [place] tel:[phone] [facility] - [place] No Information May-1 0-200 7 Mehbod Amir. [facility], [address], [place], [place], [id number] , [place]. tel:[phone] Referring Provider: Mckinley Cardona [facility], [place], [address]. tel:[phone] Z [facility], [address] [place], [place] [address], [place], [address], [place] tel:[phone] [facility] No Information 1200 7 Mehbod Amir. [facility], [address], [place], [place], [id number] , [place]. tel:[phone] Referring Provider: [facility], [place], [address]. tel:[phone] Office consultation, moderate Z [facility], [address] [place] [address] [address], [place], [address], [place] tel:[phone] [facility] - [place] No Information 200 6 Mehbod Amir. [facility], [address], [place], [place], [id number] , [place]. tel:[phone] Referring Provider: Mckinley Cardona [facility] Yadira [facility], [place], [address]. tel:[phone] Family History Family Member Type Diagnosis Age At Onset No Information Payers Payer name Insurance type Covered green party ID Buck avilajaylin(s) [employer] AM [id number] [employer] [id number] Social History Type Description Quantity Date Captured [...]
--- OUTSIDE RECORDS SUMMARY | 2023-07-11 11:35 | XMS_ITS | Clinical Summary ---
Author Name Unknown Organization [employer] [facility] Address [place], [place] [address] Care Team Providers Care Core Rescuer Name Role Phone Mali Robertson PA-C Primary Care Provider + [phone] Paul Soler MD Unavailable [phone]- [phone] Allergies Active Allergy Reactions Criticality Noted Date [...] stenosis 04/20/2023 Coronary artery disease invo lving [place] coronary artery of [place] heart without angina pectoris 04/20/2023 Chronic systolic [...] - 10/22/08: new onset, s/p DCCV in [place], Cor angio with mild CAD - CHADS2 [...] Diabetes mellitus type 2, uncomplicated 06/11/2015 03/30/2016 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 04/19/2012 10/15/2013 Overview: Warfarin - started 10/2008; indicated for a fib CHADS2=2 (DM, HTN); goal INR 2.0- 3.0; Anticoagulation monitoring, INR range 2-3 11/20/2010 03/07/2023 Overview: Warfarin - started 10/2008; indicated for a fib CHADS2=2 (DM, HTN) Fever 02/20/2010 05/25/2022 half-way (current) use of anticoagulants 12/25/2008 11/20/2010 Overview: [...] Encounters Date Type Department Care Team Description 07/10/2023 Orders Only [facility] Staff, Other Clinical 1 scan: (1-Ord) 07/10/2023 07/06/2023 4:40 AM GLASS PRODUCTS INSPECTOR - 07/06/2023 2:05 PM GLASS PRODUCTS INSPECTOR Hospital Encounter [facility] [address] [place] [address] [facility], [facility] Hospitalists Of [facility], MD Mart Olivas, Stevo Arana MD Discharge Disposition: Home Self Care 07/06/2023 Travel 07/01/2023 6:31 PM GLASS PRODUCTS INSPECTOR - 07/01/2023 10:57 PM GLASS PRODUCTS INSPECTOR Emergency [facility] Emergency Department [address] [place] [address] Mari Ibarra MD Fatigue, unspecified type (Primary Dx); Lightheadedness Discharge Disposition: Home Self Care 07/01/2023 Travel 06/29/2023 9:59 AM GLASS PRODUCTS INSPECTOR Anesthesia Event [facility] [address] [place] [address] Inna Molina MD 06/29/2023 9:15 AM [employer]ASS PRODUCTS INSPECTOR - 06/29/2023 1:38 PM GLASS PRODUCTS INSPECTOR Surgery [facility] [address] [place] [address] Ahmet Levy MD LEFT CUTDOWN FEMORAL ARTERY; LEFT ENDARTERECTOMY; LEFT LOWER EXTREMITY ANGIOGRAM; ANGIOPLASTY 06/29/2023 5:54 AM GLASS PRODUCTS INSPECTOR - 06/30/2023 3:30 PM GLASS PRODUCTS INSPECTOR Hospital Encounter [facility] [address] [place] [address] Bella Benavidez MD Severe aortic stenosis (Primary Dx); Bicuspid aortic valve; Type 2 diabetes mellitus without complication, without long-term current use of insulin (HC); PAD (peripheral artery disease) (HC) Discharge Disposition: Home Self Care 06/29/2023 Travel 06/28/2023 Orders Only [facility] [address] [place] [address] Leon Broussard NP <No scans attached> 06/23/2023 10:00 AM GLASS PRODUCTS INSPECTOR Office Visit [facility] [address] [place] [address] Junior Castellanos MBBS CV Valve Est (VALVE EST:PRE-OP TAVR, LABS PRIOR,NEEDS EKG,KCQ12, 5M WALK,LETTER SENT, HJK//PCP: Mali Robertson PA-C/) 06/23/2023 9:30 AM GLASS PRODUCTS INSPECTOR Orders Only [facility] [address] [place] [address] Lab 06/23/2023 Telephone [facility] [address] [place], [place] [address] [place] [address] TeetersPaul MD Results (CT results) 06/23/2023 Orders Only [facility] [address] [place] [address] Junior Castellanos MBBS <No scans attached> 06/23/2023 Travel 06/08/2023 Telephone [facility] [address] [place] [address] Bella Benavidez MD Surgery Scheduled (TAVR scheduling. ) 06/06/2023 Telephone [facility] [address] [place] [address] Bella Benavidez MD Health Maintenance Update (Dental Clearance Update) 06/02/2023 Telephone [facility] [address] [place] [address] Bella Benavidez MD Health Maintenance Update (Schedule TAVR) 06/02/2023 Telephone [facility] [address] [place] [address] Bella Benavidez MD Health Maintenance Update 05/30/2023 Refill [facility] [address] [place] [address] Dexter Lofton MD Refill Request (Metformin) 05/23/2023 Telephone [facility] [address] [facility] [address] [place] [address] Bella Benavidez MD Health Maintenance Update (Post valve conference discussion /) 05/16/2023 3:30 PM GLASS PRODUCTS INSPECTOR Office Visit [facility] [address] [place] [phone] Ethel Salcido, Ronaldo Mcdaniel MD CV General Cardiology Est (ref: Carlito with CT prior//PCP: Mali Robertson PA-C/) 05/16/2023 1:55 PM GLASS PRODUCTS INSPECTOR - 05/16/2023 11:59 PM GLASS PRODUCTS INSPECTOR Hospital Encounter [facility] [address] [place] [address] Bella Benavidez MD Severe aortic stenosis 05/16/2023 Travel 05/15/2023 Telephone [facility] [address] [place] [address] Fatuma De Oliveira, [facility] 04/21/2023 Telephone [facility] [address] [facility] [address] [place] [phone] Bella Benavidez MD Imaging (Results/findings on recent CT scan ) 04/20/2023 3:00 PM GLASS PRODUCTS INSPECTOR Office Visit [facility] [address] [place] [address] Bella Benavidez MD Consult; CV Valve New (TAVR) 04/20/2023 Telephone [facility] [address] [facility] [address] [place] [address] Bella Benavidez MD Appointment 04/19/2023 2:30 PM GLASS PRODUCTS INSPECTOR Office Visit [facility] at [address] [phone] Abad Guaman MD Follow Up (yearly, Nonrheumatic aortic valve stenosis //Needs surgery clearance ) 04/19/2023 Telephone [facility] [place] [address] [place] [address] Abad Guaman MD Appointment 04/19/2023 Travel 04/14/2023 8:00 AM CDT Ancillary Procedure [facility] [address] [facility] [place] [address] 04/14/2023 Travel 04/13/2023 Transcribe Orders [facility] [address] [place] [address] Mali Robertson PA-C 04/12/2023 Orders Only [facility] Scanner 1 scan: (1-Ord) [place], MULTIPLE LABS, 04/12/2023 from Last 3 Months Immunizations Name [...] 2 Heart Disease Father d 85 yo [place] aft er hip fracture Arthritis Mother Heart [...] Comments Blood Pressure 126/75 07/06/2023 8:10 AM GLASS PRODUCTS INSPECTOR Pulse 84 07/06/2023 8:10 AM GLASS PRODUCTS INSPECTOR Temperature 36.8 ??C (98.2 ??F) 07/06/2023 8:10 AM CS T Respiratory Rate 18 07/06/2023 8:10 AM GLASS PRODUCTS INSPECTOR Oxygen Saturation 95% 07/06/2023 8:10 AM GLASS PRODUCTS INSPECTOR Inhaled Oxygen Concentration - - Weight 77 kg (169 lb 12.1 oz) 07/06/2023 4:57 AM GLASS PRODUCTS INSPECTOR Height 170.2 cm (5' 7) 07/01/2023 6:27 PM GLASS PRODUCTS INSPECTOR Body Mass Index 26.59 07/01/2023 6:27 PM GLASS PRODUCTS INSPECTOR Plan of Treatment Upcoming Encounters Date Type Department Care Team (Late st Contact Info) Description 07/26/2023 8:00 AM GLASS PRODUCTS INSPECTOR Orders Only [facility] [address] [place] [address] 07/28/2023 2:20 PM GLASS PRODUCTS INSPECTOR Orders Only [facility] [address] [place] [address] 07/28/2023 2:30 PM GLASS PRODUCTS INSPECTOR Appointment [facility] [address] [place] [address] 07/28/2023 4:30 PM GLASS PRODUCTS INSPECTOR Office Visit [facility] [address] [place] [phone] Junior Castellanos MBBS [address] [place] [address] 08/16/2023 1:00 PM GLASS PRODUCTS INSPECTOR Appointment [facility] [address] [place] [address] 08/16/2023 2:00 PM GLASS PRODUCTS INSPECTOR Office Visit [facility] [address] [place] [address] Ahmet Levy MD [address] [place] [address] Goals Goal Patient Goal Type Associated Problems Recent Progress Patient-Stated? Author BLOOD PRESSURE - MAINTAINS BP less than 140/90 Blood Pressure Arya Felder MD Medical Devices Implanted Type Area Field Laboratory Operator Device Identifier Shelf Expiration Date Model / Serial / Lot [id number] e Canclls Crushed 60cc [] Implanted:Qty: 1 on 08/22/2006 at [facility] Explanted:at [facility] (Quantity not on file) Spine [employer]ource 05/17/2011 [id number]# / [id number] / [id number] e Canclls Crushed 30cc [[id number]] Implanted:Qty: 1 on 08/22/2006 at [facility] Explanted:at [facility] (Quantity not on file) Spine [employer]ource 11/16/2010 [id number]# / [id number] / Vesna Dayanara [id number] - [id number] Implanted:Qty: 6 on 08/22/2006 at [facility] Spine [employer]MEDICA [id number]# / / Screw Polyaxial 6.5x45mm - [id number] Implanted:Qty: 6 on 08/22/2006 at [facility] Spine [employer] [id number]# / / Marin Dayanara Rad 70mm 108mm Radius - [id number] Implanted:Qty: 2 on 08/22/2006 at [facility] Spine [employer] [id number]# / / Wedge Tag Acufex 3.7mm - [id number] Implanted:Qty: 3 on 08/25/2011 at [facility] Left: Shoulder [employer] [id number]# / / [id number] Screw Cerv Ant 4x15mm [place] Translational Va Slf Drill - [id number] Implanted:Qty: 3 on 03/04/2022 by Donald Alba MD at [facility] N/A: Spine Medtronic Spine/Ortho [id number] / / Plate Cerv 1lvl 25mm [place] Vision Elite Ant - [id number] Implanted:Qty: 1 on 03/04/2022 by Donald Alba MD at [facility] N/A: Spine Medtronic Spine/Ortho [id number] / / [id number] e Matrix 1cc [place] Plus Paste Dbm Implanted:Qty: 1 on 03/04/2022 by Donald Alba MD at [facility] Explanted:at [facility] (Quantity not on file) N/A: Spine Medtronic Spine/Ortho 10/12/2023 [id number] / [id number] / [id number] Spinal Graft Block Robert Implanted:Qty: 1 on 03/04/2022 by Donald Alba MD at [facility] Explanted:at [facility] (Quantity not on file) N/A: Spine Medtronic Spine/Ortho 02/24/2024 [id number] / [id number] / Screw Cerv Ant 4x13mm [place] [employer] Va Slf Drill - [id number] Implanted:Qty: 1 on 03/04/2022 by Donald Alba MD at [facility] N/A: Spine Medtronic Spine/Ortho [id number] / / Tissue Pericardium 0.8x8cm Photofix Bovine - [id number] Implanted:Qty: 1 on 06/29/2023 by Ahmet Levy MD at [facility] Left: Groin [employer] Inc 02/03/2025 [id number] / / [id number] Description:CryoLife PhotoFi x Decellularized Bovine Pericardium 0.8cm x 8cm; Lot Number [id number]; Reference Number [id number]; Implanted to the left groin by Dr. Levy on 06/29/2023 Procedures Procedure Name Priority Date/Time Associated Diagnosis Comments SCAN CORRESP-EKG RESULTS 07/10/2023 3:27 PM GLASS PRODUCTS INSPECTOR GLUCOSE METER Timed 07/06/2023 12:13 PM GLASS PRODUCTS INSPECTOR US ARTERIAL LOWER EXTREMITY PSEUDOANEURYSM LEFT SHEN 07/06/2023 11:09 AM GLASS PRODUCTS INSPECTOR SCAN-CARDIAC STRIP 07/06/2023 8: 05 AM GLASS PRODUCTS INSPECTOR GLUCOSE METER Timed 07/06/2023 7:24 AM GLASS PRODUCTS INSPECTOR PROTIME-INR STAT 07/06/2023 6:34 AM GLASS PRODUCTS INSPECTOR HEMOGLOBIN STAT 07/06/2023 6:34 AM GLASS PRODUCTS INSPECTOR SCAN-CARDIAC STRIP 07/06/2023 5: 40 AM GLASS PRODUCTS INSPECTOR XR CHEST 1 VIEW PORTABLE STAT 07/01/2023 9:16 PM GLASS PRODUCTS INSPECTOR US ARTERIAL LOWER EXTREMITY PSEUDOANEURYSM LEFT STAT 07/01/2023 8:20 PM GLASS PRODUCTS INSPECTOR LACTATE SCREEN VENOUS ISTAT W QUEEN Timed 07/01/2023 7:50 PM GLASS PRODUCTS INSPECTOR TYPE & SCREEN STAT 07/01/2023 7:41 PM GLASS PRODUCTS INSPECTOR TROPONIN T (HS) ONE TIME Timed 07/01/2023 7:41 PM GLASS PRODUCTS INSPECTOR PROTIME-INR STAT 07/01/2023 7:41 PM GLASS PRODUCTS INSPECTOR EXTRA TUBE QUEEN ON ICE STAT 07/01/2023 7:40 PM GLASS PRODUCTS INSPECTOR ISTAT LACTATE SCREEN VENOUS STAT 07/01/2023 7:40 PM GLASS PRODUCTS INSPECTOR BASIC METABOLIC PANEL STAT 07/01/2023 6:47 PM GLASS PRODUCTS INSPECTOR TROPONIN T (HS) ACUTE W/2HR REFLEX STAT 07/01/2023 6:47 PM GLASS PRODUCTS INSPECTOR PRO-BNP STAT 07/01/2023 6:47 PM GLASS PRODUCTS INSPECTOR CBC W PLT NO DIFF STAT 07/01/2023 6:4 6 PM GLASS PRODUCTS INSPECTOR EKG 12 LEAD STAT 07/01/2023 6:28 PM GLASS PRODUCTS INSPECTOR GLUCOSE METER Timed 06/30/2023 10:57 AM GLASS PRODUCTS INSPECTOR SCAN-CARDIAC STRIP 06/30/2023 10:36 AM GLASS PRODUCTS INSPECTOR MAGNESIUM Early AM 06/30/2023 8:00 AM GLASS PRODUCTS INSPECTOR BASIC METABOLIC PANEL Early AM 06/30/2023 8:00 AM GLASS PRODUCTS INSPECTOR CBC W PLT NO DIFF Early AM 06/30/2023 7:5 9 AM GLASS PRODUCTS INSPECTOR GLUCOSE METER Timed 06/30/2023 7:31 AM GLASS PRODUCTS INSPECTOR EKG 12 LEAD SHEN 06/30/2023 6:22 AM GLASS PRODUCTS INSPECTOR SCAN-CARDIAC STRIP 06/30/2023 4: 01 AM GLASS PRODUCTS INSPECTOR GLUCOSE METER Timed 06/29/2023 9:40 PM GLASS PRODUCTS INSPECTOR HEMOGLOBIN Today 06/29/2023 5:52 PM GLASS PRODUCTS INSPECTOR GLUCOSE METER Timed 06/29/2023 5:44 PM GLASS PRODUCTS INSPECTOR GLUCOSE METER Timed 06/29/2023 4:46 PM GLASS PRODUCTS INSPECTOR SCAN-CARDIAC STRIP 06/29/2023 3: 55 PM GLASS PRODUCTS INSPECTOR ECHO TTE LIMITED WO CONTRAST W COLOR W LTD DOPPLER Routine 06/29/2023 3:54 PM GLASS PRODUCTS INSPECTOR EKG 12 LEAD STAT 06/29/2023 2:11 PM GLASS PRODUCTS INSPECTOR HCHG ACTIVATED CLOTTING TM CV Timed 06/29/2023 1:26 PM GLASS PRODUCTS INSPECTOR HEMOGLOBIN STAT 06/29/2023 1:19 PM GLASS PRODUCTS INSPECTOR GLUCOSE METER Timed 06/29/2023 1:04 PM GLASS PRODUCTS INSPECTOR XR PELVIS 1 VIEW PORTABLE Routine 06/29/2023 12:07 PM GLASS PRODUCTS INSPECTOR TRANSFUSE RBC (NURSE COMMUNICATION ORDER) STAT 06/29/2023 11:32 AM GLASS PRODUCTS INSPECTOR COMPREHENSIVE BLOOD GAS ARTERIAL Timed 06/29/2023 11:22 AM GLASS PRODUCTS INSPECTOR RBC W/O TYPE & SCREEN STAT 06/29/2023 11:11 AM GLASS PRODUCTS INSPECTOR RED BLOOD CELLS EA UNIT STAT 06/29/2023 11:09 AM GLASS PRODUCTS INSPECTOR RED BLOOD CELLS EA UNIT STAT 06/29/2023 11:09 AM GLASS PRODUCTS INSPECTOR ENDOTRACHEAL TUBE Routine 06/29/2023 10:10 AM GLASS PRODUCTS INSPECTOR ENDOTRACHEAL TUBE Routine 06/29/2023 10:10 AM GLASS PRODUCTS INSPECTOR ENDOTRACHEAL TUBE Routine 06/29/2023 10:10 AM GLASS PRODUCTS INSPECTOR ENDOTRACHEAL TUBE Routine 06/29/2023 10:10 AM GLASS PRODUCTS INSPECTOR CUTDOWN FEMORAL ARTERY Class A Emergency 06/29/2023 9:44 AM GLASS PRODUCTS INSPECTOR Perclose failure HCHG ACTIVATED CLOTTING TM CV Timed 06/29/2023 9:05 AM GLASS PRODUCTS INSPECTOR CVL TAVR Routine 06/29/2023 8:49 AM GLASS PRODUCTS INSPECTOR RBC W/O TYPE & SCREEN STAT 06/29/2023 7:38 AM GLASS PRODUCTS INSPECTOR RED BLOOD CELLS EA UNIT STAT 06/29/2023 7:35 AM GLASS PRODUCTS INSPECTOR RED BLOOD CELLS EA UNIT STAT 06/29/2023 7:35 AM GLASS PRODUCTS INSPECTOR TYPE & SCREEN Preop 06/29/2023 6:20 AM GLASS PRODUCTS INSPECTOR PROTIME-INR STAT 06/29/2023 6:20 AM GLASS PRODUCTS INSPECTOR GLUCOSE, FASTING Preop 06/29/2023 6:20 AM GLASS PRODUCTS INSPECTOR SCAN-CARDIAC STRIP 06/29/2023 12:00 AM GLASS PRODUCTS INSPECTOR EKG 12 LEAD Routine 06/23/2023 9:43 AM GLASS PRODUCTS INSPECTOR Aortic valve stenosis, etiology of cardiac valve disease unspecified MIXING TANK OPERATOR QUESTION TEST Routine 06/23/2023 9:42 AM GLASS PRODUCTS INSPECTOR Pre-op testing TYPE & SCREEN Routine 06/23/2023 9:42 AM GLASS PRODUCTS INSPECTOR Pre-op testing PROTIME-INR Routine 06/23/2023 9:42 AM GLASS PRODUCTS INSPECTOR Pre-op testing ALBUMIN Routine 06/23/2023 9:42 AM GLASS PRODUCTS INSPECTOR Pre-op testing CBC W PLT NO DIFF Routine 06/23/2023 9:4 2 AM GLASS PRODUCTS INSPECTOR Pre-op testing BASIC METABOLIC PANEL Routine 06/23/2023 9:42 AM GLASS PRODUCTS INSPECTOR Pre-op testing CTA CHEST ABD PELVIS TAVR - DUAL READ Routine 05/16/2023 2:46 PM GLASS PRODUCTS INSPECTOR Severe aortic stenosis CREATININE,ISTAT Routine 05/16/2023 2:23 PM GLASS PRODUCTS INSPECTOR HEMATOCRIT/HGB,ISTAT Routine 05/16/2023 2:18 PM GLASS PRODUCTS INSPECTOR EKG 12 LEAD Routine 04/20/2023 Paroxysmal atrial fibrillation (HC) ECHO TTE COMPLETE WO CONTRAST Routine 04/14/2023 8:45 AM CDT Murmur SCAN-LABORATORY REPORT 04/12/2023 12:00 AM CDT from Last 3 Months Results * SCAN CORRESP-EKG RESULTS (07/10/2023 3:27 PM GLASS PRODUCTS INSPECTOR) Narrative 07/10/2023 3:27 PM GLASS PRODUCTS INSPECTOR Ordered by an unspecified provider. Other Clinical Staff OTHER * (ABNORMAL) GLUCOSE METER (07/06/2023 12:13 PM GLASS PRODUCTS INSPECTOR) Only the most recent of8 resultswithin the time period is included. GLUCOSE METER 135(H) 65 - 100 mg/dL 07/06/2023 12:15 PM GLASS PRODUCTS INSPECTOR [facility] Blood BLOOD SPECIMEN / Unknown 07/06/2023 12:13 PM GLASS PRODUCTS INSPECTOR 07/06/2023 12:15 PM GLASS PRODUCTS INSPECTOR Stevo Cevallos MD [facility]Y [facility] [address] [place] [address], * US ARTERIAL LOWER EXTREMITY PSEUDOANEURYSM LEFT (07/06/2023 11:09 AM GLASS PRODUCTS INSPECTOR) Only the most recent of2 resultswithin the time period is included. Anatomical Region Laterality Modality LEG L Ultrasound 07/06/2023 11:3 6 AM GLASS PRODUCTS INSPECTOR Impressions 07/06/2023 11:36 AM GLASS PRODUCTS INSPECTOR 1. 2.7 cm hematoma in the left inguinal region. No sonographic evidence of pseudoaneurysm or arteriovenous fistula. Dictated by Marvin Cheema MD @ 07/06/2023 11:36:57 AM (Electronically Signed) Narrative 07/06/2023 11:36 AM GLASS PRODUCTS INSPECTOR For Patients: ??As a result of the [...] US * SCAN-CARDIAC STRIP (07/06/2023 8:05 AM GLASS PRODUCTS INSPECTOR) Scanner OTHER * (ABNORMAL) HEMOGLOBIN (07/06/2023 6:34 AM GLASS PRODUCTS INSPECTOR) Only the most recent of3 resultswithin the time period is included. HEMOGLOBIN 8.5(L) 13.5 - 17.5 g/dL 07/06/2023 7:06 AM GLASS PRODUCTS INSPECTOR [facility] MCV 85 80 - 100 fL 07/06/2023 7:06 AM GLASS PRODUCTS INSPECTOR [facility] Blood BLOOD SPECIMEN / Unknown Venipuncture / Unknown 07/06/2023 6:34 AM GLASS PRODUCTS INSPECTOR 07/06/2023 6:55 AM GLASS PRODUCTS INSPECTOR Donald Lee MD HEMATOLOGY [facility] [address] [place] [address], * (ABNORMAL) INR AM (07/06/2023 6:34 AM GLASS PRODUCTS INSPECTOR) Only the most recent of4 resultswithin the time period is included. INR 1.6(H) <1.3 07/06/2023 7:06 AM GLASS PRODUCTS INSPECTOR [facility] PROTIME 17.8(H) 10.3 - 12.3 sec 07/06/2023 7:06 AM GLASS PRODUCTS INSPECTOR [facility] Blood BLOOD SPECIMEN / Unknown Venipuncture / Unknown 07/06/2023 6:34 AM GLASS PRODUCTS INSPECTOR 07/06/2023 6:55 AM GLASS PRODUCTS INSPECTOR Narrative [facility] - 07/06/2023 7:06 AM GLASS PRODUCTS INSPECTOR ?Therapeutic Range 2.0-3.0 for most anticoagulated patients [...] is on UFH. Donald Lee MD HEMATOLOGY [facility] [address] [place] [address], * SCAN-CARDIAC STRIP (07/06/2023 5:40 AM GLASS PRODUCTS INSPECTOR) Scanner OTHER * XR CHEST 1 VIEW PORTABLE (07/01/2023 9:16 PM GLASS PRODUCTS INSPECTOR) Anatomical Region Laterality Modality HEART, THORAX, CHEST Digital Rad iography 07/01/2023 9:19 PM GLASS PRODUCTS INSPECTOR Narrative 07/01/2023 9:19 PM GLASS PRODUCTS INSPECTOR For Patients: ??As a result of the [...] VENOUS ISTAT W QUEEN (07/01/2023 7:50 PM GLASS PRODUCTS INSPECTOR) [facility] LACTATE VENOUS SCREEN ISTAT <1.8 <=2.0 07/01/2023 7:54 PM GLASS PRODUCTS INSPECTOR [facility] LACTATE SCREEN VENOUS POCT 1.5 <=2.0 07/01/2023 7:54 PM GLASS PRODUCTS INSPECTOR [facility] Blood BLOOD SPECIMEN / Unknown 07/01/2023 7:50 PM GLASS PRODUCTS INSPECTOR 07/01/2023 7:54 PM GLASS PRODUCTS INSPECTOR Mari Ibarra MD LABORATORY Performing Organization Address City/[facility]/ZIP Co de Phone Number [facility] [address] [place] [address], [place] * (ABNORMAL) TROPONIN T (HS) ONE TIME (07/01/2023 7:41 PM GLASS PRODUCTS INSPECTOR) [facility] TROPONIN T HS 74(H) 6-15 ng/L ng/L 07/01/2023 8:14 PM GLASS PRODUCTS INSPECTOR [facility] Blood BLOOD SPECIMEN / Unknown Butterfly / Unknown 07/01/2023 7:41 PM GLASS PRODUCTS INSPECTOR 07/01/2023 7:49 PM GLASS PRODUCTS INSPECTOR Anw Ed Triage CHEMISTRY [facility] [address] [place] [address], [place] * TYPE AND SCREEN ONLY (07/01/2023 7:41 PM GLASS PRODUCTS INSPECTOR) Only the most recent of3 resultswithin the time period is included. Pathologist [facility] ABORH A Rh Positive 07/01/2023 10:05 PM GLASS PRODUCTS INSPECTOR [facility] B[facility]OD [facility] ANTIBODY SCREEN Negative Negative 07/01/2023 10:05 PM GLASS PRODUCTS INSPECTOR [facility] BLOOD BANK SPECIMEN EXPIRATION DATE/TIME 07/04/23 23:59 07/01/2023 10:05 PM GLASS PRODUCTS INSPECTOR [facility] Blood BLOOD SPECIMEN / Unknown Butterfly / Unknown 07/01/2023 7:41 PM GLASS PRODUCTS INSPECTOR 07/01/2023 9:29 PM GLASS PRODUCTS INSPECTOR Mari Ibarra MD BLOOD BANK [facility] BLOOD BANK [address] [place] [address], * EXTRA TUBE QUEEN ON ICE (07/01/2023 7:40 PM GLASS PRODUCTS INSPECTOR) Blood BLOOD SPECIMEN / Unknown Butterfly / Unknown 07/01/2023 7:40 PM GLASS PRODUCTS INSPECTOR 07/01/2023 7:51 PM GLASS PRODUCTS INSPECTOR Mari Ibarra MD LABORATORY Performing Organization Address City/[facility] Co de Phone Number [facility] [address] [place] [address], * (ABNORMAL) TROPONIN T (HS) ACUTE W/2HR REFLEX (07/01/2023 6:47 PM GLASS PRODUCTS INSPECTOR) TROPONIN T HS 71(H) 6-15 ng/L ng/L 07/01/2023 7:25 PM GLASS PRODUCTS INSPECTOR [facility] Blood BLOOD SPECIMEN / Unknown Venipuncture / Unknown 07/01/2023 6:47 PM GLASS PRODUCTS INSPECTOR 07/01/2023 6:52 PM GLASS PRODUCTS INSPECTOR Narrative [facility] - 07/01/2023 7:25 PM GLASS PRODUCTS INSPECTOR hs-cTnT (Elecsys Troponin T Gen 5) concentration [...] department patient population. Anw Ed Triage CHEMISTRY Performing Organization Address City/State/[facility] Co de Phone Number [facility] [address] [place] [address], * (ABNORMAL) PRO-BNP (07/01/2023 6:47 PM GLASS PRODUCTS INSPECTOR) PRO-BNP 372(H) <125 pg/mL 07/01/2023 7:26 PM GLASS PRODUCTS INSPECTOR [facility] Blood BLOOD SPECIMEN / Unknown Venipuncture / Unknown 07/01/2023 6:47 PM GLASS PRODUCTS INSPECTOR 07/01/2023 6:52 PM [employer] Narrative [employer] [facility] - 07/01/2023 7:26 PM [employer] The following cut-points have been suggested for [...] failure. ? Anw Ed Triage [facility] [address] [place] [address], * (ABNORMAL) BASIC METABOLIC PANEL (07/01/2023 6:47 PM [employer]) Only the most recent of3 resultswithin the time period is included. Pathologist [facility] [place] SODIUM 140 136 - 145 mmol/L 07/01/2023 7:25 PM [facility] TRAL LABORATORY POTASSIUM 4.3 3.5 - 5.1 mmol/L 07/01/2023 7:25 PM [facility] TRAL LABORATORY CHLORIDE 103 98 - 107 mmol/L 07/01/2023 7:25 PM [facility] CO2,TOTAL 27 22 - 29 mmol/L 07/01/2023 7:25 PM [facility]AL LAB[facility]ORY ANION GAP 10 5 - 18 07/01/2023 7:25 PM [facility] LAB[facility]ORY GLUCOSE 136(H) 70 - 99 mg/dL 07/01/2023 7:25 PM [facility] TRAL LAB[facility]ORY CALCIUM 9.1 8.8 - 10.2 mg/dL 07/01/2023 7:25 PM [facility] LAB[facility]ORY BUN 18 8 - 23 mg/dL 07/01/2023 7:25 PM [facility] LAB[facility]ORY CREATININE 0.97 0.70 - 1.20 mg/dL 07/01/2023 7:25 PM [facility] TRAL LABORATORY BUN/CREAT RATIO 19 10 - 20 4 7:25 PM [facility] TRAL LABORATORY eGFR 85(L) >90 mL/min/1.7 3m2 07/01/2023 7:25 PM [facility] TRAL LABORATORY Comment:As of 2021, eG FR is calculated by the CKD-EPI creatinine equation without race adjustment. ??eGFR can be influenced by muscle mass, exercise, and diet. ??The reported eGFR is an estimation only and is only applicable if the renal function is stable. Blood BLOOD SPECIMEN / Unknown Venipuncture / Unknown 07/01/2023 6:47 PM GLASS PRODUCTS INSPECTOR 07/01/2023 6:52 PM GLASS PRODUCTS INSPECTOR Anw Ed Triage CHEMISTRY [facility] [address] [place] [address], * (ABNORMAL) CBC W PLT NO DIFF (07/01/2023 6:46 PM GLASS PRODUCTS INSPECTOR) Only the most recent of3 resultswithin the time period is included. WHITE BLOOD COUNT 10.0 4.5 - 11.0 thou/cu mm 07/01/2023 6:55 PM [facility] TRAL LABORATORY RED BLOOD COUNT 3.28(L) 4.30 - 5.90 mil/cu mm 07/01/2023 6:55 PM [facility] TR[facility] LAB[facility]ORY HEMOGLOBIN 9.2(L) 13.5 - 17.5 g/dL 07/01/2023 6:55 PM [facility] TRAL LAB[facility]ATORY HEMATOCRIT 27.6(L) 37.0 - 53.0 % 07/01/2023 6:55 PM [facility] TRAL LAB[facility]ATORY MCV 84 80 - 100 fL 07/01/2023 6:55 PM [facility] TRAL LAB[facility]ORY MCH 28.0 26.0 - 34.0 pg 07/01/2023 6:55 PM [facility] TRAL LABORATORY MCHC 33.3 32.0 - 36.0 g/dL 07/01/2023 6:55 PM GLASS PRODUCTS INSPECTOR [facility] TRAL LABORATORY RDW 13.9 11.5 - 15.5 % 07/01/2023 6:55 PM GLASS PRODUCTS INSPECTOR [facility] TRAL LABORATORY PLATELET COUNT 280 140 - 440 thou/cu mm 07/01/2023 6:55 PM GLASS PRODUCTS INSPECTOR [facility] TRAL LABORATORY MPV 9.6 6.5 - 11.0 fL 07/01/2023 6:55 PM GLASS PRODUCTS INSPECTOR [facility] TRAL LABORATORY NRBC 0.0 % 07/01/2023 6:55 PM GLASS PRODUCTS INSPECTOR [facility] TRAL LABORATORY ABS NRBC 0.0 thou /cu mm 07/01/2023 6:55 PM GLASS PRODUCTS INSPECTOR [facility] TRAL LABORATORY Blood BLOOD SPECIMEN / Unknown Venipuncture / Unknown 07/01/2023 6:46 PM GLASS PRODUCTS INSPECTOR 07/01/2023 6:52 PM GLASS PRODUCTS INSPECTOR Narrative [facility] - 07/01/2023 6:55 PM GLASS PRODUCTS INSPECTOR RN to order if patient presents with shortness of breath or wheezing. Anw Ed Triage [facility] [address] [place] [address], * EKG 12 LEAD (07/01/2023 6:28 PM GLASS PRODUCTS INSPECTOR) Only the most recent of5 resultswithin the time period is included. Interpretation Sinus rhythm with Premature supraventricular complexes Left bundle branch block Abnormal ECG BEYOND NOW Ventricular Rate 90 BPM BEYOND NOW Atrial Rate 90 BPM BEYOND NOW P-R Interval 178 ms BEYOND NOW QRS Duration 128 ms BEYOND NOW QT 396 ms BEYOND NOW QTc 484 ms BEYOND NOW P [place] 72 degrees BEYOND NOW R [place] 72 degrees BEYOND NOW T [place] 131 degrees BEYOND NOW 07/01/2023 6:28 PM GLASS PRODUCTS INSPECTOR 07/02/2023 2:37 PM GLASS PRODUCTS INSPECTOR Anw Ed Triage EKG ORD BEYOND NOW [place], [place] * SCAN-CARDIAC STRIP (06/30/2023 10:36 AM GLASS PRODUCTS INSPECTOR) Scanner OTHER * MAGNESIUM (06/30/2023 8:00 AM GLASS PRODUCTS INSPECTOR) Pathologist [facility] MAGNESIUM 1.6 1.6 - 2.4 mg/dL 06/30/2023 9:12 AM GLASS PRODUCTS INSPECTOR [facility] LABORATORY-[facility] LABORATORY Blood BLOOD SPECIMEN / Unknown Venipuncture / Unknown 06/30/2023 8:00 AM GLASS PRODUCTS INSPECTOR 06/30/2023 8:07 AM GLASS PRODUCTS INSPECTOR Bella Benavidez MD CHEMISTRY [facility] LABORATORY-CENTRAL LABORATORY [address] [place] [address], * SCAN-CARDIAC STRIP (06/30/2023 4:01 AM GLASS PRODUCTS INSPECTOR) Scanner OTHER * SCAN-CARDIAC STRIP (06/29/2023 3:55 PM GLASS PRODUCTS INSPECTOR) Scanner OTHER * ECHO TTE LIMITED WO CONTRAST W COLOR W LTD DOPPLER (06/29/2023 3:54 PM GLASS PRODUCTS INSPECTOR) Pathologist [facility] AORTIC VALVE MEAN PG 11 mmHg LVEDD 4.7 cm EJECTION FRACTION 60 - 65% Anatomical Region Laterality Modality Ultrasound 06/29/2023 3:10 PM GLASS PRODUCTS INSPECTOR Narrative 06/29/2023 5:05 PM GLASS PRODUCTS INSPECTOR ECHOCARDIOGRAM VILMA UGARTE ?Accession#: ?? [id number] : ?1955 68 years Study Date: ?? 06/29/2023 3:10:34 PM Gender: M ? BP: ? 130/58 mmHg Height: 170.00 cm ? BSA: ?1.92 m? ? ? Weight: 80.00 kg ?Tech: ? ASHLEY ?Referring MD: LEON BROUSSARD Site: ? [facility] Reading Location: AN IP Patient Location: Inpatient. Procedure: Limited 2D [...] . This study was interpreted by an [facility] accredited facility. ??Final ?? Procedure Note Roc Thakur MD - 06/29/2023 ECHOCARDIOGRAM VILMA UGARTE : 1955 68 years Study Date: 06/29/2023 3:10:34 PM Gender: M BP: 130/58 mmHg Height: 170.00 cm BSA: 1.92 m? ? ? Weight: 80.00 kg Tech: ASHLEY Harper MD: LEON BROUSSARD Site: [facility] Reading Location: [facility] Patient Location: Inpatient. Procedure: Limited 2D [...] . This study was interpreted by an [facility] accredited facility. Final Leon Broussard WORLD DESIGNER ECHO ORD * (ABNORMAL) ACTIVATED CLOTTING TIME TIR142 ACT (06/29/2023 1:26 PM GLASS PRODUCTS INSPECTOR) Only the most recent of2 resultswithin the time period is included. ACTIVATED CLOTTING TIME, POCT 143(H) 74 - 125 sec 06/29/2023 3:03 PM GLASS PRODUCTS INSPECTOR [facility] LABORATORY Blood BLOOD SPECIMEN / Unknown 06/29/2023 1:26 PM GLASS PRODUCTS INSPECTOR 06/29/2023 3:03 PM GLASS PRODUCTS INSPECTOR Bella Benavidez MD [facility] [address] [place] [address], [place] * XR PELVIS 1 VIEW PORTABLE (06/29/2023 12:07 PM GLASS PRODUCTS INSPECTOR) Anatomical Region Laterality Modality Pelvis Digital Radiogra phy 06/29/2023 12:3 5 PM GLASS PRODUCTS INSPECTOR Narrative 06/29/2023 12:35 PM GLASS PRODUCTS INSPECTOR For Patients: ??As a result of the [...] on 06/29/2023 at 12:32 p.m. Dictated by Stpehania Farrar MD @ 06/29/2023 12:35:19 PM (Electronically Signed) Procedure Note Stephania Farrar, DO - 06/29/2023 For Patients: As a result of the 21st Century Cures Act, medical imagingexams and procedure reports [...] RBC (NURSE COMMUNICATION ORDER) (06/29/2023 11:32 AM GLASS PRODUCTS INSPECTOR) Blood BLOOD SPECIMEN / Unknown Bella Benavidez MD NURSING BLOOD BANK * (ABNORMAL) COMPREHENSIVE BLOOD GAS ARTERIAL (06/29/2023 11:22 AM GLASS PRODUCTS INSPECTOR) PH, ARTERIAL 7.39 7.35 - 7.45 06/29/2023 11:22 AM GLASS PRODUCTS INSPECTOR [facility]-CE NTRAL LABORATORY PCO2, ARTERIAL 41 35 - 48 mmHg 06/29/2023 11:22 AM GLASS PRODUCTS INSPECTOR [facility] LABORATORY- NTRAL LABORATORY PO2, ARTERIAL 220(H) 83 - 108 mmHg 06/29/2023 11:22 AM [facility] LABORATORY- NTRAL LABORATORY HCO3, ARTERIAL 25 21 - 28 mmol/L 06/29/2023 11:22 AM GLASS PRODUCTS INSPECTOR [facility] LABORATORY- NTRMT LABORATORY BASE EXCESS, ARTERIAL -0.2 -2.0 - 3.0 06/29/2023 11:22 AM [facility] LABORATORY- NTRAL LABORATORY O2 SATURATION, ARTERIAL 100(H) 94 - 98 % 06/29/2023 11:22 AM GLASS PRODUCTS INSPECTOR [facility] NTRAL LABORATORY PATIENT TEMPERATURE 37.0 Degrees C 06/29/2023 11:22 AM [facility] COLLECTION SITE ARTERIAL LINE 06/29/2023 11:22 AM [facility] NTRMT LABORATORY HEMOGLOBIN,BLOO D GAS 8.2(L) 13.5 - 17.5 g/dL 06/29/2023 11:22 AM GLASS PRODUCTS INSPECTOR [facility] NTRMT LABORATORY SODIUM 134(L) 136 - 145 mmol/L 06/29/2023 11:22 AM [facility] NTRMT LABORATORY POTASSIUM 4.8 3.5 - 5.1 mmol/L 06/29/2023 11:22 AM [facility] LABORATORY CHLORIDE 108(H) 98 - 107 mmol/L 06/29/2023 11:22 AM [facility] NTRMT LABORATORY Blood BLOOD SPECIMEN / Unknown 06/29/2023 11:22 AM GLASS PRODUCTS INSPECTOR 06/29/2023 11:23 AM GLASS PRODUCTS INSPECTOR Bella Benavidez MD CHEMISTRY [facility] LAB[facility]ORY [address] [place] [address], [place] * RBC W/O TYPE & SCREEN (06/29/2023 11:11 AM GLASS PRODUCTS INSPECTOR) Only the most recent of2 resultswithin the time period is included. Pathologist [facility] QUANTITY 2 06/29/2023 11:11 AM GLASS PRODUCTS INSPECTOR [facility] BLOOD BANK Blood BLOOD SPECIMEN / Unknown 06/29/2023 11:09 AM GLASS PRODUCTS INSPECTOR Ahmet Levy MD BLOOD BANK [facility] LAB BLOOD BANK [address] [place] [address], [place] [phone] * RED BLOOD CELLS EA UNIT (06/29/2023 11:09 AM GLASS PRODUCTS INSPECTOR) Only the most recent of4 resultswithin the time period is included. Pathologist [facility] CROSSMATCH Compatible Compatible [facility] BLOOD BANK PRODUCT BLOOD TYPE A Rh Positive [facility] BLOOD B[facility] PRODUCT ID NUMBER [id number] [facility] HOSPITALGlobal Protein Solutions LAB BLOOD BANK PRODUCT STATUS /Relea sed [facility] HOSPITALRobotokiCENTRAL LAB BLOOD BANK PRODUCT DESCRIPTION RBC -1 LR [facility] SAFE ID SolutionsCENTRAL LAB BLOOD BANK PRODUCT CODE [id number] [facility] [email or web address] LAB BLOOD BANK Ahmet Levy MD BLOOD BANK [facility] [employer] LAB BLOOD BANK [address] [place] [address], * HCHG TUBE PR1, HCHG INSTRUMENT DISP PR10, HCHG STYLET PR1, HCHG MOUTHPIECE PR1 (06/29/2023 10:10 AMCST) Narrative Carlos Briggs CRNA - 06/29/2023 10:10 AM GLASS PRODUCTS INSPECTOR Carlos Briggs CRNA ? 06/29/2023 10:11 AM [...] ORDERABLES * CVL TAVR (06/29/2023 8:49 AM GLASS PRODUCTS INSPECTOR) Anatomical Region Laterality Modality X-Ray Angiograph y, X-Ray Angiography 06/29/2023 8:49 AM GLASS PRODUCTS INSPECTOR Narrative Transcriptions Bella Benavidez MD - 06/29/2023 11:08 AM CST [facility] Cardiac Catheterization Report Name: VILMA UGARTE Event Date: 06/29/2023 08:49 Elvin ID #: [id number] [facility] #: [id number] Diagnostic Physician: BELLA BENAVIDEZ [facility] Interventional Physician: DA[facility] BENAVIDEZMartin [facility] Referring Physician: Date: 1955 Gender: Male Age: [...] ? LV Pressure = 165/15. Consent & [place] Protocol The risks, benefits, and alternatives of the procedure were discussed withthe patient and written informed consent was obtained. [place] protocol was followed. TIME OUT conducted just prior tostarting procedure confirmed patient identity, site/side, procedure,patient position, and availability of correct equipment and implants (ifapplicable). Staff Name Title Jony Tan RN Neelam Bergeron RN Nurse Gabriela Delvalle RTR Monitor Vasiliy Herrera SPRING ASSEMBLER SUPERVISOR Seeing Eye Dog Trainer Vera Marino CVT Seeing Eye Dog TrainerJunior Funk Fellow Leon Broussard NP Physician Flat Lock Machine Operator BELLA BENAVIDEZ Silk Screen Operator AHMET LEVY Vascular Surgeon Rachael Serna Fellow [...] RN 08:49 1% Lidocaine 10 ml Subcut Junior Castellanos Jai 08:55 1% Lidocaine 10 ml Subcut Junior Castellanos Jai 08:58 Heparin 8000 units IV Bella Benavidez Mellina RN 09:02 O2 2 l per min Nasal cannula Bella Benavidez Mellina RN 09:08 Heparin 3000 units IV Bella Benavidez Mellina RN 09:12 Fentanyl 25 mcg IV Bella Benavidez Mellina RN 09:12 Versed 0.5 mg IV Jadynmanohar Neelam Oakley RN 09:23 O2 4 l per min Nasal cannula Jadynmanohar Neelam Oakley RN 09:35 Protamine 70 mg IV JadynBella villela Mellina RN 09:38 Fentanyl 25 mcg IV Bella Benavidez Mellina RN 09:38 Versed 0.5 mg IV Bella Benavidez Mellina RN 09:42 Versed 0.5 mg IV JadynslBella Mellina RN 09:42 Fentanyl 25 mcg IV Bella Benavidez Mellina RN 09:49 Versed 0.5 mg IV Bella Benavidez Mellina RN 09:49 Fentanyl 25 mcg IV Bella Benavidez Mellina RN 09:55 Fentanyl 25 mcg IV Bella Benavidez Mellina RN 09:55 Versed 0.5 mg IV Bella Benavidez Mellina RN I personally monitored the patient?s conscious sedation during theprocedure. Conscious sedation starts with the first sedation medication dose ofFentanyl or Versed and ends when the procedure is completed, the patientis stable for recovery status, and the physician or other qualified healthcare professional providing the sedation ends personal [id number] time with the patient. The medications listed above were verbally ordered by me and read back tome as documented above. Refer to the procedure log report for additional case details. electronically signed on 06/29/2023 11:08:03 AM with status of Final Bella Benavidez MD [facility] [address] [place] [address] (p) (f) Bella Benavidez MD CV IMAGING * (ABNORMAL) Glucose, Fasting (06/29/2023 6:20 AM GLASS PRODUCTS INSPECTOR) GLUCOSE 174(H) 70 - 99 mg/dL 06/29/2023 6:58 AM GLASS PRODUCTS INSPECTOR [facility] LABORATORY-[facility] Blood BLOOD SPECIMEN / Unknown Venipuncture / Unknown 06/29/2023 6:20 AM GLASS PRODUCTS INSPECTOR 06/29/2023 6:30 AM GLASS PRODUCTS INSPECTOR Leon Broussard NP CHEMISTRY Performing Organization Address [facility] Co de Phone Number [facility] [address] [place] [address], [place] * SCAN-CARDIAC STRIP (06/29/2023 12:00 AM GLASS PRODUCTS INSPECTOR) Narrative 06/29/2023 12:00 AM GLASS PRODUCTS INSPECTOR Ordered by an unspecified provider. Other Clinical Staff OTHER * MIXING TANK OPERATOR QUESTION TEST (06/23/2023 9:42 AM GLASS PRODUCTS INSPECTOR) QABT Question Yes 06/23/2023 9:56 AM GLASS PRODUCTS INSPECTOR [facility] LAB BLOOD BANK Blood BLOOD SPECIMEN / Unknown Venipuncture / Unknown 06/23/2023 9:42 AM GLASS PRODUCTS INSPECTOR 06/23/2023 9:50 AM GLASS PRODUCTS INSPECTOR Bella Benavidez MD BLOOD BANK Performing Organization Address [facility] Co de Phone Number [facility] LAB BLOOD BANK [address] [place] [address], * ALBUMIN (06/23/2023 9:42 AM GLASS PRODUCTS INSPECTOR) ALBUMIN 4.1 4.0 - 4.9 g/dL 06/23/2023 10:19 AM GLASS PRODUCTS INSPECTOR [facility] AL LABORATORY Blood BLOOD SPECIMEN / Unknown Venipuncture / Unknown 06/23/2023 9:42 AM GLASS PRODUCTS INSPECTOR 06/23/2023 9:50 AM GLASS PRODUCTS INSPECTOR Bella Benavidez MD CHEMISTRY Performing Organization Address [facility] Co de Phone Number [facility] Web[employer] SolutionsCENTRAL LABORATORY [address] [place] [address], [place] * CTA CHEST ABD PELVIS TAVR - DUAL READ (05/16/2023 2:46 PM GLASS PRODUCTS INSPECTOR) Anatomical Region Laterality Modality CHEST, Abdomen, Pelvis Computed Tomography Impressions 05/18/2023 3:24 PM GLASS PRODUCTS INSPECTOR 1. Please see separate dictation for all [...] PM (Electronic Signature) Narrative 05/18/2023 3:24 PM GLASS PRODUCTS INSPECTOR Images from the original result were not [...] PATIENT: Results are automatically released to your [employer] ([employer]) account once available, in compliance with federal regulations. ?? This means that you may see your results before your provider has had a chance to review them. ??Please allow 2-3 business days for your provider to comment on the results. Cardiac Imaging Fellow: Monae Chamorro MD Reading Knockout Man: Donald Sánchez MD MPH [facility] 05/16/2023 For Patients: As a result of [...] chest, abdomen and pelvis was performed per [facility] protocol. Please see Cardiology dictation for details on technique. ?? 100 cc Omnipaque-350 intravenous contrast. ?? This exam is being performed in conjunction with the services provided by the [facility] ([facility]). CLINICAL HISTORY: Over-read of non-cardiovascular structures [...] MD CT * CREATININE,ISTAT (05/16/2023 2:23 PM GLASS PRODUCTS INSPECTOR) CREATININE, POCT 0.60 0.57 - 1.11 mg/dL 05/16/2023 2:57 PM GLASS PRODUCTS INSPECTOR [facility] LABORATORY eGFR >90 >90 mL/min/1.7 3m2 05/16/2023 2:57 PM GLASS PRODUCTS INSPECTOR [facility] Comment:As of 2021, eG FR is calculated by the CKD-EPI creatinine equation without race adjustment. eGFR can be influenced by muscle mass, exercise, and diet. The reported eGFR is an estimation only and is only applicable if the renal function is stable. Blood BLOOD SPECIMEN / Unknown 05/16/2023 2:23 PM GLASS PRODUCTS INSPECTOR 05/16/2023 2:57 PM GLASS PRODUCTS INSPECTOR Bella Benavidez MD CHEMISTRY Performing Organization Address City/[facility]/ZIP Co de Phone Number [facility] [address] [place] [address], * (ABNORMAL) HEMATOCRIT/HGB,ISTAT (05/16/2023 2:18 PM GLASS PRODUCTS INSPECTOR) HEMATOCRIT, POCT 37.0 37.0 - 53.0 % 05/16/2023 2:57 PM GLASS PRODUCTS INSPECTOR [facility] LABORATORY HEMOGLOBIN, POCT 12.6(L) 13.5 - 17.5 g/dL 05/16/2023 2:57 PM GLASS PRODUCTS INSPECTOR [facility] LABORATORY Blood BLOOD SPECIMEN / Unknown 05/16/2023 2:18 PM GLASS PRODUCTS INSPECTOR 05/16/2023 2:57 PM GLASS PRODUCTS INSPECTOR Bella Benavidez MD CHEMISTRY Performing Organization Address [facility] Co de Phone Number [facility] [address] [place] [address], [place] * ECHO TTE COMPLETE WO CONTRAST (04/14/2023 8:45 AM CDT) AORTIC VALVE MEAN PG 36 mmHg EJECTION FRACTION 79 % PEAK TR VELOCITY 2.6 m/s LVEDD 4.3 cm EJECTION FRACTION 70 - 75% Anatomical Region Laterality Modality Ultrasound 04/14/2023 7:56 AM CDT Narrative 04/14/2023 9:08 AM CDT ECHOCARDIOGRAM VILMA UGARTE ?Accession#: ?? [id number] : ?1955 68 years Study Date: ?? 04/14/2023 7:56:53 AM Gender: M ? BP: ? 136/68 mmHg Height: 170.00 cm ? BSA: ?1.96 m? ? ? Weight: 84.00 kg ?Tech: ? MTS ?Referring MD: MALI ROBERTSON Site: ? [facility] Reading Location: MOBILE OP Patient Location: Outpatient. [...] . This study was interpreted by an [facility] accredited facility. CC: HIM ([facility]) [facility]. ??Final ?? Procedure Note Abad Guaman MD - 04/14/2023 ECHOCARDIOGRAM VILMA UGARTE : 1955 68 years Study Date: 04/14/2023 7:56:53 AM Gender: M BP: 136/68 mmHg Height: 170.00 cm BSA: 1.96 m? ? ? Weight: 84.00 kg Tech: [facility] Referring MD: MALI ROBERTSON Site: [facility] Reading Location: MOBILE OP Patient [...] [facility] accredited facility. CC: NELI (med records) [facility]. Final Mali Robertson PA-C ECHO ORD * [...] 8:24 AM 12/16/2015 1:04 PM Care Teams Core Rescuer Relationship Specialty Start Date End Date Mali Robertson PA-C [address] [place] [address] PCP - General Emergency Medicine 04/20/23 Paul Soler MD [address] [place] [address] Pulmonology Pulmonary Medicine 09/30/22
== END 2023-07-07 08:55 | disposition home or self-care (01) ==
LOC: NFLDREF 07-11 11:28
PROVIDERS: PCP Physician Assistant Medical; Referring Provider Physician Assistant Medical; Visit Provider Physician Assistant Medical
DX: I50.22 Chronic systolic (congestive) heart failure (principal); Z51.81 Encounter for therapeutic drug level monitoring; Z79.01 Long term (current) use of anticoagulants; D64.9 Anemia, unspecified
CPT/HCPCS: 83880

== ENCOUNTER 2023-07-27 08:59 | Outpatient (CLI) | payer MEDICARE, BC, SELFPAY ==
--- OUTSIDE RECORDS SUMMARY | 2023-07-27 09:01 | XMS_ITS | Continuity of Care Document ---
Author Name Unknown Organization Z [facility] Address [address] [place] [address] Phone Care Team Providers Care Mine Car Repairer Name Role Phone Sumit Castillo MD [...] Date Provider Providers Copied on Encounter [facility], [address], [place], [address], [place] tel:[phone] [facility] [place] No Information 8 Jonathan Arana. [facility], [address], [place], [place], [id number] , [place]. [phone] Office/outpat ient visit,est, low Z [facility], [address], [place], [address], [place] tel:[phone] [facility] [place] No Information Apr-1 0-200 8 Mehbod Amir. [facility], [address] [place] [address] [address], [place], [place], [id number] , [place]. tel:[phone] Referring Provider: Mckinley Cardona, [facility], [place], [address]. tel:[phone] Office/outpat ient visit,est, low Z [facility], [address] [place], [place] [address], [place], [place], [facility], [place] tel:[phone] [facility] [place] No Information Jan-0 9-200 7 Mehbod Amir. [facility], [address] [place] [address] [address], [place], [place], [id number] , [place]. [phone] Referring Provider: Mckinley Cardona, [facility] Yadira [facility], [place], [address]. tel:[phone] Office/outpat ient visit,est, low Z [facility], [address] [place], [place] [address]ite [facility], [place], [address], [place] tel:[phone] [facility] No Information Bong-2 8-200 7 Mehbod Amir. [facility], [address], [place], [place], [id number] , [place]. [phone] Referring Provider: Mckinley Cardona, [facility] Yadira [facility], [place], [address]. tel:[phone] Z [facility], [address] [place], [place] [address] [address], [place], [facility], [place] tel:[phone] [facility] [place] No Information May-1 0-200 7 Mehbod Amir. [facility], [address], [place], [place], [id number] , [place]. tel:[phone] Referring Provider: Mckinley Cardona [facility], [place], [address]. tel:[phone] Z [facility], [address] [place], [place] [address] [address], [place], [address], [place] tel:[phone] No Information 1200 7 Mehbod Amir. [facility], [address], [place], [place], [id number] , [place]. tel:[phone] Referring [facility]: [facility], [place], [address]. tel:[phone] Office consultation, moderate Z [facility], [address] [place] [address] [address], [place], [address], [place] tel:[phone] [facility] [place] No Information 200 6 Mehbod Amir. [facility], [address], [place], [place], [id number] , [place]. tel:[phone] Referring Provider: Mckinley Cardona [facility] Yadira [facility], [place], [address]. tel:[phone] Family History Family Member Type Diagnosis Age At Onset No Information Payers Payer name Insurance type Covered democrat ID Buck avilajaylin(s) [employer] AM [id number] [employer] [id number] Social History Type Description Quantity Date Captured [...]
--- OUTSIDE RECORDS SUMMARY | 2023-07-27 09:01 | XMS_ITS | Clinical Summary ---
Author Name Unknown Organization [facility] Address [place], [place] [address] Care Team Providers Care Managed Care Coordinator Name Role Phone Emely Henson PA-C Primary Care Provider + [phone] Paul Soler MD Unavailable [phone] Allergies Active Allergy Reactions Criticality Noted Date [...] daily after a meal. 90 Capsule 2 07/11/202 3 Active amLODIPine (NORVASC) 10 mg tabletIndication [...] stenosis 04/20/2023 Coronary artery disease invo lving cata[place]ba coronary artery of [place]ata[place]ba heart without angina pectoris 04/20/2023 Chronic systolic [...] - 10/22/08: new onset, s/p DCCV in [place], [place] angio with mild CAD - CHADS2 [...] Diabetes mellitus type 2, uncomplicated 06/11/2015 03/30/2016 [facility] (current) use of anticoagulants 04/19/2012 10/15/2013 Overview: Warfarin - started 10/2008; indicated for a fib CHADS2=2 (DM, HTN); goal INR 2.0- 3.0; Anticoagulation monitoring, INR range 2-3 11/20/2010 03/07/2023 Overview: Warfarin - started 10/2008; indicated for a fib CHADS2=2 (DM, HTN) 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 02/20/2010 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 12/25/2008 11/20/2010 Overview: [...] Encounters Date Type Department Care Team Description 07/26/2023 9:18 AM THERAPIST RADIATION - 07/26/2023 11:59 PM THERAPIST RADIATION Hospital Encounter [facility] [address] [place] [address] Radha Hernandez MD 07/26/2023 8:00 AM THERAPIST RADIATION Ancillary Procedure [facility] [address] [place] [address] Arrived 07/26/2023 Travel 07/24/2023 Orders Only [facility] [address] [place] [address] Deanna Olivas 1 scan: (1-Ord) Final 07/21/2023 9:00 AM THERAPIST RADIATION - 07/21/2023 11:59 PM THERAPIST RADIATION Hospital Encounter [facility] [address] [place] [address] Radha Hernandez MD 07/20/2023 8:36 AM THERAPIST RADIATION - 07/20/2023 11:59 PM THERAPIST RADIATION Hospital Encounter [facility] [address] [place] [address] Junior Castellanos MBBS Severe aortic stenosis 07/20/2023 Travel 07/10/2023 Orders Only [facility] Staff, Other Clinical 1 scan: (1-Ord) 07/10/2023 07/06/2023 4:40 AM THERAPIST RADIATION - 07/06/2023 2:05 PM THERAPIST RADIATION Hospital Encounter [facility] [address] [place] [address] [facility], MD Mart Olivas, Stevo Arana MD Discharge Disposition: Home Self Care 07/06/2023 Travel 07/01/2023 6:31 PM THERAPIST RADIATION - 07/01/2023 10:57 PM THERAPIST RADIATION Emergency [facility] Emergency Department [address] [place] [address] Mari Ibarra MD Fatigue, unspecified type (Primary Dx); Lightheadedness Discharge Disposition: Home Self Care 07/01/2023 Travel 06/29/2023 9:59 AM THERAPIST RADIATION Anesthesia Event [facility] [address] [place] [address] Inna Molina MD 06/29/2023 9:15 AM THERAPIST RADIATION - 06/29/2023 1:38 PM THERAPIST RADIATION Surgery [facility] [address] [place] [address] Ahmet Levy MD LEFT CUTDOWN FEMORAL ARTERY; LEFT ENDARTERECTOMY; LEFT LOWER EXTREMITY ANGIOGRAM; ANGIOPLASTY 06/29/2023 5:54 AM THERAPIST RADIATION - 06/30/2023 3:30 PM THERAPIST RADIATION Hospital Encounter [facility] [address] [place] [address] Bella Benavidez MD Severe aortic stenosis (Primary Dx); Bicuspid aortic valve; Type 2 diabetes mellitus without complication, without long-term current use of insulin (HC); PAD (peripheral artery disease) (HC) Discharge Disposition: Home Self Care 06/29/2023 Travel 06/28/2023 Orders Only [facility] [address] [place] [address] Leon Broussard NP <No scans attached> 06/23/2023 10:00 AM THERAPIST RADIATION Office Visit [facility] [address] [facility] [address] [place] [address] Junior Castellanos MBBS CV Valve Est (VALVE EST:PRE-OP TAVR, LABS PRIOR,NEEDS EKG,KCCQ12, 5M WALK,LETTER SENT, HJK//PCP: Emely Henson PA-C/) 06/23/2023 9:30 AM THERAPIST RADIATION Orders Only [facility] [address] [facility] [address] [place] [address] Lab 06/23/2023 Telephone [facility] [address] [facility] [address] [place] [address] TeePaul cota MD Results (CT results) 06/23/[address] [facility] [address] [facility] [address] [place] [address] Junior Castellanos MBBS <No scans attached> 06/23/2023 Travel 06/08/[address] [facility] [address] [facility] [address] [place] [phone] Bella Benavidez MD Surgery Scheduled (TAVR scheduling. ) 06/06/[address] [facility] [address] [facility] [address] [place] [phone] Bella Benavidez MD Health Maintenance Update (Dental Clearance Update) 06/02/[address] [facility] [address] [phone] Bella Benavidez MD Health Maintenance Update (Schedule TAVR) 06/02/[address] [facility] [address] [phone] Bella Benavidez MD Health Maintenance Update 05/30/2023 Refill [facility] [address] [place] [address] Dexter Lofton MD Refill Request (Metformin) 05/23/[address] [facility] [address] [phone] Bella Benavidez MD Health Maintenance Update (Post valve conference discussion /) 05/16/2023 3:30 PM THERAPIST RADIATION Office Visit [facility] [address] [place] [phone] Ethel Salcido, Ronaldo Mcdaniel MD CV General Cardiology Est (ref: Carlito with CT prior//PCP: Emely Henson PA-C/) 05/16/2023 1:55 PM THERAPIST RADIATION - 05/16/2023 11:59 PM THERAPIST RADIATION Hospital Encounter [facility] [address] [place] [address] Bella Benavidez MD Severe aortic stenosis 05/16/2023 Travel 05/15/2023 Telephone [facility] [address] [facility] [address] [place] [address] Fatuma De Oliveira, PCT from Last 3 Months Immunizations Name Administration [...] 2 Heart Disease Father d 85 yo [place] aft er hip fracture Arthritis Mother Heart [...] PHQ-2 Answer Date Recorded PHQ-2 TOTAL SCORE 1 07/20/2023 Social Connections Answer Date Recorded Frequency of [...] Sign Reading Time Taken Comments Blood Pressure 130/70 07/20/2023 1:00 PM THERAPIST RADIATION Pulse 83 07/20/2023 1:00 PM THERAPIST RADIATION Temperature 36.8 ??C (98.2 ??F) 07/06/2023 8:10 AM CS T Respiratory Rate 15 07/20/2023 1:00 PM THERAPIST RADIATION Oxygen Saturation 95% 07/20/2023 1:00 PM THERAPIST RADIATION Inhaled Oxygen Concentration - - Weight 77.6 kg (171 lb) 07/20/2023 1:00 PM THERAPIST RADIATION Height 170.2 cm (5' 7) 07/20/2023 1:00 PM THERAPIST RADIATION Body Mass Index 26.78 07/20/2023 1:00 PM THERAPIST RADIATION Plan of Treatment Upcoming Encounters Date Type Department Care Team (Late st Contact Info) Description 07/28/2023 10:00 AM THERAPIST RADIATION Appointment [facility] [address] [place] [address] 07/28/2023 2:20 PM THERAPIST RADIATION Orders Only [facility] [address] [facility] [address] [place] [address] 07/28/2023 2:30 PM THERAPIST RADIATION Appointment [facility] [address] [place] [address] 07/28/2023 4:30 PM THERAPIST RADIATION Office Visit [facility] [address] [facility] [address] [place] [address] Junior Castellanos MBBS [address] [facility] [address] [place] [address] 07/31/2023 10:00 AM THERAPIST RADIATION Appointment [facility] [address] [place] [address] 08/02/2023 10:00 AM THERAPIST RADIATION Appointment [facility] [address] [place] [address] 08/04/2023 10:00 AM THERAPIST RADIATION Appointment [facility] [address] [place] [address] 08/07/2023 10:00 AM THERAPIST RADIATION Appointment [facility] [address] [place] [address] 08/09/2023 10:00 AM THERAPIST RADIATION Appointment [facility] [address] [place] [address] 08/11/2023 10:00 AM THERAPIST RADIATION Appointment [facility] [address] [place] [address] 08/14/2023 10:00 AM THERAPIST RADIATION Appointment [facility] [address] [place] [address] 08/16/2023 10:00 AM THERAPIST RADIATION Appointment [facility] [address] [place] [address] 08/16/2023 1:00 PM THERAPIST RADIATION Appointment [facility] [address] [place] [address] 08/16/2023 2:00 PM THERAPIST RADIATION Office Visit [facility] [address] [place] [address] Ahmet Levy MD [address] [facility] [address] [place] [address] 08/18/2023 10:00 AM THERAPIST RADIATION Appointment [facility] [address] [place] [address] 08/21/2023 10:00 AM CDT Appointment [facility] [address] [facility] [place] [address] 08/23/2023 10:00 AM CDT Appointment [facility] [address] [facility] [place] [address] 08/25/2023 10:00 AM CDT Appointment [facility] [address] [place] [address] 08/28/2023 10:00 AM CDT Appointment [facility] [address] [place] [address] 08/30/2023 10:00 AM CDT Appointment [facility] [address] [place] [address] 09/01/2023 10:00 AM CDT Appointment [facility] [address] [place] [address] 09/04/2023 10:00 AM CDT Appointment [facility] [address] [place] [address] 09/06/2023 10:00 AM CDT Appointment [facility] [address] [place] [address] 09/08/2023 10:00 AM CDT Appointment [facility] [address] [place] [address] 09/11/2023 10:00 AM CDT Appointment [facility] [address] [place] [address] 09/13/2023 10:00 AM CDT Appointment [facility] [address] [place] [address] 09/15/2023 10:00 AM CDT Appointment [facility] [address] [place] [address] 09/18/2023 10:00 AM CDT Appointment [facility] [address] [place] [address] 09/20/2023 10:00 AM CDT Appointment [facility] [address] [facility] [place] [address] 09/22/2023 10:00 AM CDT Appointment [facility] [address] [place] [address] 09/25/2023 10:00 AM CDT Appointment [facility] [address] [place] [address] 09/27/2023 10:00 AM CDT Appointment [facility] [address] [place] [address] 09/29/2023 10:00 AM CDT Appointment [facility] [address] [place] [address] 10/02/2023 10:00 AM CDT Appointment [facility] [address] [place] [address] 10/04/2023 10:00 AM CDT Appointment [facility] [address] [place] [address] 10/06/2023 10:00 AM CDT Appointment [facility] [address] [place] [address] 10/09/2023 10:00 AM CDT Appointment [facility] [address] [place] [address] 10/11/2023 10:00 AM CDT Appointment [facility] [address] [place] [address] 10/23/2023 9:30 AM CDT Office Visit [facility] [address] [phone] Paul Soler MD [address] [facility] [address] [place] [address] Goals Goal Patient Goal Type Associated Problems Recent Progress Patient-Stated? Author BLOOD PRESSURE - MAINTAINS BP less than 140/90 Blood Pressure No Arya Stone MD Medical Devices Implanted Type Area Neonatal Nurse Device Identifier Shelf Expiration Date Model / Serial / Lot [id number] e Canclls Crushed 60cc [] Implanted:Qty: 1 on 08/22/2006 at [facility] Explanted:at [facility] (Quantity not on file) Spine Allosource 05/17/2011 [id number]# / [id number] / [id number] e Canclls Crushed 30cc [] Implanted:Qty: 1 on 08/22/2006 at [facility] Explanted:at [facility] (Quantity not on file) Spine Allosource 11/16/2010 [id number]# / [id number] / Vesna Dayanara [id number] - [id number] Implanted:Qty: 6 on 08/22/2006 at [facility] Spine HOWMEDICA [id number]# / / Screw Polyaxial 6.5x45mm - [id number] Implanted:Qty: 6 on 08/22/2006 at [facility] Spine [employer] [id number]# / / Marin Dayanara Rad 70mm 108mm Radius - [id number] Implanted:Qty: 2 on 08/22/2006 at [facility] Spine [employer] [id number]# / / Wedge Tag Acufex 3.7mm - [id number] Implanted:Qty: 3 on 08/25/2011 at [facility] Left: Shoulder [employer] [id number]# / / [id number] Screw Cerv Ant 4x15mm [place] Translational Va Slf Drill - [id number] Implanted:Qty: 3 on 03/04/2022 by Donald Alba MD at [facility] N/A: Spine Medtronic Spine/Ortho [id number] / / Plate Cerv 1lvl 25mm [place] Vision Elite Ant - [id number] Implanted:Qty: 1 on 03/04/2022 by Donald Alba MD at [facility] N/A: Spine Medtronic Spine/Ortho [id number] / / [id number] e Matrix 1cc [place] Plus Paste Dbm Implanted:Qty: 1 on 03/04/2022 by Donald Alba MD at [facility] Explanted:at [facility] (Quantity not on file) N/A: Spine Medtronic Spine/Ortho 10/12/2023 [id number] / [id number] / [id number] Spinal Graft Block Robert Implanted:Qty: 1 on 03/04/2022 by Donald Alba MD at [facility] Explanted:at [facility] (Quantity not on file) N/A: Spine Medtronic Spine/Ortho 02/24/2024 [id number] / [id number] / Screw Cerv Ant 4x13mm [place] Translational Va Slf Drill - [id number] Implanted:Qty: 1 on 03/04/2022 by Donald Alba MD at [facility] N/A: Spine Medtronic Spine/Ortho [id number] / / Tissue Pericardium 0.8x8cm Photofix Bovine - [id number] Implanted:Qty: 1 on 06/29/2023 by Ahmet Levy MD at [facility] Left: Groin [employer]ife Inc 02/03/2025 [id number] / / [id number] Description:CryoLife PhotoFi x Decellularized Bovine Pericardium 0.8cm x 8cm; Lot Number [id number]; Reference Number [id number]; Implanted to the left groin by Dr. Levy on 06/29/2023 Procedures Procedure Name Priority Date/Time Associated Diagnosis Comments GLUCOSE METER Routine 07/26/2023 9:42 AM THERAPIST RADIATION SCAN-CARDIAC REHABILITATION 07/26/2023 9:40 AM THERAPIST RADIATION ECHO TTE LIMITED WO CONTRAST W COLOR W LTD DOPPLER Routine 07/26/2023 8:17 AM THERAPIST RADIATION Severe aortic stenosis EXTENDED HOLTER Routine 07/24/2023 Complete left bundle branch block GLUCOSE METER Routine 07/21/2023 9:43 AM THERAPIST RADIATION SCAN-CARDIAC REHABILITATION 07/21/2023 9:39 AM THERAPIST RADIATION GLUCOSE METER Routine 07/20/2023 10:26 AM THERAPIST RADIATION GLUCOSE METER Routine 07/20/2023 10:02 AM THERAPIST RADIATION SCAN-CARDIAC REHABILITATION 07/20/2023 9:57 AM THERAPIST RADIATION SCAN CORRESP-EKG RESULTS 07/10/2023 3:27 PM THERAPIST RADIATION GLUCOSE METER Timed 07/06/2023 12:13 PM THERAPIST RADIATION US ARTERIAL LOWER EXTREMITY PSEUDOANEURYSM LEFT SHEN 07/06/2023 11:09 AM THERAPIST RADIATION SCAN-CARDIAC STRIP 07/06/2023 8: 05 AM THERAPIST RADIATION GLUCOSE METER Timed 07/06/2023 7:24 AM THERAPIST RADIATION PROTIME-INR STAT 07/06/2023 6:34 AM THERAPIST RADIATION HEMOGLOBIN STAT 07/06/2023 6:34 AM THERAPIST RADIATION SCAN-CARDIAC STRIP 07/06/2023 5: 40 AM THERAPIST RADIATION XR CHEST 1 VIEW PORTABLE STAT 07/01/2023 9:16 PM THERAPIST RADIATION US ARTERIAL LOWER EXTREMITY PSEUDOANEURYSM LEFT STAT 07/01/2023 8:20 PM THERAPIST RADIATION LACTATE SCREEN VENOUS ISTAT W QUEEN Timed 07/01/2023 7:50 PM THERAPIST RADIATION TYPE & SCREEN STAT 07/01/2023 7:41 PM THERAPIST RADIATION TROPONIN T (HS) ONE TIME Timed 07/01/2023 7:41 PM THERAPIST RADIATION PROTIME-INR STAT 07/01/2023 7:41 PM THERAPIST RADIATION EXTRA TUBE QUEEN ON ICE STAT 07/01/2023 7:40 PM THERAPIST RADIATION ISTAT LACTATE SCREEN VENOUS STAT 07/01/2023 7:40 PM THERAPIST RADIATION BASIC METABOLIC PANEL STAT 07/01/2023 6:47 PM THERAPIST RADIATION TROPONIN T (HS) ACUTE W/2HR REFLEX STAT 07/01/2023 6:47 PM THERAPIST RADIATION PRO-BNP STAT 07/01/2023 6:47 PM THERAPIST RADIATION CBC W PLT NO DIFF STAT 07/01/2023 6:4 6 PM THERAPIST RADIATION EKG 12 LEAD STAT 07/01/2023 6:28 PM THERAPIST RADIATION GLUCOSE METER Timed 06/30/2023 10:57 AM THERAPIST RADIATION SCAN-CARDIAC STRIP 06/30/2023 10:36 AM THERAPIST RADIATION MAGNESIUM Early AM 06/30/2023 8:00 AM THERAPIST RADIATION BASIC METABOLIC PANEL Early AM 06/30/2023 8:00 AM THERAPIST RADIATION CBC W PLT NO DIFF Early AM 06/30/2023 7:5 9 AM THERAPIST RADIATION GLUCOSE METER Timed 06/30/2023 7:31 AM THERAPIST RADIATION EKG 12 LEAD SHEN 06/30/2023 6:22 AM THERAPIST RADIATION SCAN-CARDIAC STRIP 06/30/2023 4: 01 AM THERAPIST RADIATION GLUCOSE METER Timed 06/29/2023 9:40 PM THERAPIST RADIATION HEMOGLOBIN Today 06/29/2023 5:52 PM THERAPIST RADIATION GLUCOSE METER Timed 06/29/2023 5:44 PM THERAPIST RADIATION GLUCOSE METER Timed 06/29/2023 4:46 PM THERAPIST RADIATION SCAN-CARDIAC STRIP 06/29/2023 3: 55 PM THERAPIST RADIATION ECHO TTE LIMITED WO CONTRAST W COLOR W LTD DOPPLER Routine 06/29/2023 3:54 PM THERAPIST RADIATION EKG 12 LEAD STAT 06/29/2023 2:11 PM THERAPIST RADIATION HCHG ACTIVATED CLOTTING TM CV Timed 06/29/2023 1:26 PM THERAPIST RADIATION HEMOGLOBIN STAT 06/29/2023 1:19 PM THERAPIST RADIATION GLUCOSE METER Timed 06/29/2023 1:04 PM THERAPIST RADIATION XR PELVIS 1 VIEW PORTABLE Routine 06/29/2023 12:07 PM THERAPIST RADIATION TRANSFUSE RBC (NURSE COMMUNICATION ORDER) STAT 06/29/2023 11:32 AM THERAPIST RADIATION COMPREHENSIVE BLOOD GAS ARTERIAL Timed 06/29/2023 11:22 AM THERAPIST RADIATION RBC W/O TYPE & SCREEN STAT 06/29/2023 11:11 AM THERAPIST RADIATION RED BLOOD CELLS EA UNIT STAT 06/29/2023 11:09 AM THERAPIST RADIATION RED BLOOD CELLS EA UNIT STAT 06/29/2023 11:09 AM THERAPIST RADIATION ENDOTRACHEAL TUBE Routine 06/29/2023 10:10 AM THERAPIST RADIATION ENDOTRACHEAL TUBE Routine 06/29/2023 10:10 AM THERAPIST RADIATION ENDOTRACHEAL TUBE Routine 06/29/2023 10:10 AM THERAPIST RADIATION ENDOTRACHEAL TUBE Routine 06/29/2023 10:10 AM THERAPIST RADIATION CUTDOWN FEMORAL ARTERY Class A Emergency 06/29/2023 9:44 AM THERAPIST RADIATION Perclose failure HCHG ACTIVATED CLOTTING TM CV Timed 06/29/2023 9:05 AM THERAPIST RADIATION CVL TAVR Routine 06/29/2023 8:49 AM THERAPIST RADIATION RBC W/O TYPE & SCREEN STAT 06/29/2023 7:38 AM THERAPIST RADIATION RED BLOOD CELLS EA UNIT STAT 06/29/2023 7:35 AM THERAPIST RADIATION RED BLOOD CELLS EA UNIT STAT 06/29/2023 7:35 AM THERAPIST RADIATION TYPE & SCREEN Preop 06/29/2023 6:20 AM THERAPIST RADIATION PROTIME-INR STAT 06/29/2023 6:20 AM THERAPIST RADIATION GLUCOSE, FASTING Preop 06/29/2023 6:20 AM THERAPIST RADIATION SCAN-CARDIAC STRIP 06/29/2023 12:00 AM THERAPIST RADIATION EKG 12 LEAD Routine 06/23/2023 9:43 AM THERAPIST RADIATION Aortic valve stenosis, etiology of cardiac valve disease unspecified ELECTRIC POWER LINE EXAMINER QUESTION TEST Routine 06/23/2023 9:42 AM THERAPIST RADIATION Pre-op testing TYPE & SCREEN Routine 06/23/2023 9:42 AM THERAPIST RADIATION Pre-op testing PROTIME-INR Routine 06/23/2023 9:42 AM THERAPIST RADIATION Pre-op testing ALBUMIN Routine 06/23/2023 9:42 AM THERAPIST RADIATION Pre-op testing CBC W PLT NO DIFF Routine 06/23/2023 9:4 2 AM THERAPIST RADIATION Pre-op testing BASIC METABOLIC PANEL Routine 06/23/2023 9:42 AM THERAPIST RADIATION Pre-op testing CTA CHEST ABD PELVIS TAVR - DUAL READ Routine 05/16/2023 2:46 PM THERAPIST RADIATION Severe aortic stenosis CREATININE,ISTAT Routine 05/16/2023 2:23 PM THERAPIST RADIATION HEMATOCRIT/HGB,ISTAT Routine 05/16/2023 2:18 PM THERAPIST RADIATION from Last 3 Months Results * (ABNORMAL) GLUCOSE METER (07/26/2023 9:42 AM THERAPIST RADIATION) Only the most recent of12 resultswithin the time period is included. [facility] Signature GLUCOSE METER 166(H) 65 - 100 mg/dL 07/26/2023 9:42 AM THERAPIST RADIATION [facility] Blood BLOOD SPECIMEN / Unknown 07/26/2023 9:42 AM THERAPIST RADIATION 07/26/2023 9:42 AM THERAPIST RADIATION Radha Hernandez MD CHEMISTRY [facility] [address] [place], [place] [id number] * SCAN-CARDIAC REHABILITATION (07/26/2023 9:40 AM THERAPIST RADIATION) Only the most recent of3 resultswithin the time period is included. Scanner OTHER * ECHO TTE LIMITED WO CONTRAST W COLOR W LTD DOPPLER (07/26/2023 8:17 AM THERAPIST RADIATION) Only the most recent of2 resultswithin the time period is included. AORTIC VALVE MEAN PG 7 mmHg LVEDD 3.8 cm EJECTION FRACTION 70 - 75% Anatomical Region Laterality Modality Ultrasound 07/26/2023 7:48 AM THERAPIST RADIATION Narrative 07/26/2023 8:59 AM THERAPIST RADIATION ECHOCARDIOGRAM VILMA UGARTE ?Accession#: ?? [id number] : ?1955 68 years Study Date: ?? 07/26/2023 7:48:51 AM Gender: M ? BP: ? 130/70 mmHg Height: 170.00 cm ? BSA: ?1.89 m? ? ? Weight: 78.00 kg ?Tech: ? M[facility] ?Referring MD: LEON BROUSSARD Site: ? [facility] Reading Location: MOBILE OP Patient Location: Outpatient. Procedure: Limited 2D , Color Doppler and Spectral Doppler. Indication for study: s/p TAVR Cardiac Rhythm: Regular.Study quality: Fair. Final Impressions: 1. Normal LV size, mildly increased wall thickness, hyperdynamic global systolic function with an estimated EF of 70 - 75%. 2. Right ventricular cavity size is normal, global systolic RV function is normal. 3. Mildly enlarged left atrium. 4. The aortic valve is S/P #29mm Evolut Fx THV; the THV is well-seated and stable., no stenosis and trivial regurgitation. The aortic valve peak velocity is 1.8 m/s, the peak gradient is 13 mmHg, and the mean gradient is 7 mmHg. The aortic valve area is 2.15 cm? ? ? with a dimensionless index of 0.95. The stroke volume index is 40.4 ml/m? ? ?. 5. The mitral valve is severe mitral annular calcification (posterior), mild to moderate mitral regurgitation. 6. Tricuspid valve is normal. 7. Small pericardial effusion. Chamber Sizes and Function Normal left ventricular size, mildly increased wall thickness, hyperdynamic global systolic function with an estimated EF of 70 - 75%. Left atrial size is mildly enlarged. Right ventricular cavity size is normal, global systolic RV function is normal. RV wall thickness is normal. The right atrium is normal. The pulmonary artery is not well visualized. The sinus of Valsalva is not well visualized. The ascending aorta is normal sized. Valves, RV Pressures and Diastolic Function The aortic valve is S/P #29mm Evolut Fx THV; the THV is well-seated and stable., no stenosis and trivial regurgitation. The mitral valve is severe mitral annular calcification (posterior), mild to moderate mitral regurgitation. Diastolic function assessment not performed. The tricuspid valve is normal in structure. Tricuspid regurgitation is mild regurgitation. The pulmonic valve is normal. Trace pulmonary regurgitation. Masses, Effusion, Shunts There is small pericardial effusion. The inferior vena cava is normal sized, respiratory size variation greater than 50%. Interatrial septum is not well visualized. MEASUREMENTS AND CALCULATIONS 2-D Measurements and LV Function: LVID (d) 3.8 cm LV FS% (2D) ?? 45 % LVID (s) 2.1 cm LVOT diameter 1.7 cm IVS (d) ??1.2 cm HR ?77 bpm LVPW (d) 1.4 cm RV Max 4C (d) 3.1 cm Asc Ao ?? 3.2 cm LA ? 4.6 cm Aortic Valve: Vmax ? 1.8 m/s ??AVINASH (V) ?? 2.07 cm? ? ? VTI ?0.36 m ?? AVINASH (I) ?? 2.15 cm? ? ? LVOT V max 1.6 m/s ??Max PG ?13 mmHg LVOT VTI ?? 0.34 m ?? Mean PG ?? 7 mmHg SV ? 76 ml ?Dim Index 0.95 SV index ?? 40 ml/m? ? ? CO ?5.9 l/min ?CI ?3.1 l/min/m? ? ? . This study was interpreted by an [facility] accredited facility. ??Final ?? Procedure Note Elizabeth Bryant, [facility] - 07/26/2023 ECHOCARDIOGRAM VILMA UGARTE : 1955 68 years Study Date: 07/26/2023 7:48:51 AM Gender: M BP: 130/70 mmHg Height: 170.00 cm BSA: 1.89 m? ? ? Weight: 78.00 kg Tech: [facility] Referring MD: LEON BROUSSARD [facility] [facility] Reading Location: MOBILE OP Patient Location: Outpatient. Procedure: Limited 2D , Color Doppler and Spectral Doppler. Indication for study: s/p TAVR Cardiac Rhythm: Regular.Study quality: Fair. Final Impressions: 1. Normal LV size, mildly increased wall thickness, hyperdynamic globalsystolic function with an estimated EF of 70 - 75%. 2. Right ventricular cavity size is normal, global systolic RV functionis normal. 3. Mildly enlarged left atrium. 4. The aortic valve is S/P #29mm Evolut Fx THV; the THV is well-seatedand stable., no stenosis and trivial regurgitation. The aortic valve peakvelocity is 1.8 m/s, the peak gradient is 13 mmHg, and the mean gradientis 7 mmHg. The aortic valve area is 2.15 cm? ? ? with a dimensionless indexof 0.95. The stroke volume index is 40.4 ml/m? ? ?. 5. The mitral valve is severe mitral annular calcification (posterior),mild to moderate mitral regurgitation. 6. Tricuspid valve is normal. 7. Small pericardial effusion. Chamber Sizes and Function Normal left ventricular size, mildly increased wall thickness,hyperdynamic global systolic function with an estimated EF of 70 - 75%.Left atrial size is mildly enlarged. Right ventricular cavity size isnormal, global systolic RV function is normal. RV wall thickness isnormal. The right atrium is normal. The pulmonary artery is not wellvisualized. The sinus of Valsalva is not well visualized. The ascendingaorta is normal sized. Valves, RV Pressures and Diastolic Function The aortic valve is S/P #29mm Evolut Fx THV; the THV is well-seated andstable., no stenosis and trivial regurgitation. The mitral valve is severemitral annular calcification (posterior), mild to moderate mitralregurgitation. Diastolic function assessment not performed. The tricuspidvalve is normal in structure. Tricuspid regurgitation is mildregurgitation. The pulmonic valve is normal. Trace pulmonaryregurgitation. Masses, Effusion, Shunts There is small pericardial effusion. The inferior vena cava is normalsized, respiratory size variation greater than 50%. Interatrial septum isnot well visualized. MEASUREMENTS AND CALCULATIONS 2-D Measurements and LV Function: LVID (d) 3.8 cm LV FS% (2D) 45 % LVID (s) 2.1 cm LVOT diameter 1.7 cm IVS (d) 1.2 cm HR 77 bpm LVPW (d) 1.4 cm RV Max 4C (d) 3.1 cm Asc Ao 3.2 cm LA 4.6 cm Aortic Valve: Vmax 1.8 m/s AVINASH (V) 2.07 cm? ? ? VTI 0.36 m AVINASH (I) 2.15 cm? ? ? LVOT V max 1.6 m/s Max PG 13 mmHg LVOT VTI 0.34 m Mean PG 7 mmHg SV 76 ml Dim Index 0.95 SV index 40 ml/m? ? ? CO 5.9 l/min CI 3.1 l/min/m? ? ? . This study was interpreted by an [facility] accredited facility. Final Leon Broussard NP ECHO ORD * EXTENDED HOLTER (07/24/2023) Leon Broussard TRACER LATHE SET UP OPERATOR CARDIAC SERVICES OR D * SCAN CORRESP-EKG RESULTS (07/10/2023 3:27 PM THERAPIST RADIATION) Narrative 07/10/2023 3:27 PM THERAPIST RADIATION Ordered by an unspecified provider. Other Clinical Staff OTHER * US ARTERIAL LOWER EXTREMITY PSEUDOANEURYSM LEFT (07/06/2023 11:09 AM THERAPIST RADIATION) Only the most recent of2 resultswithin the time period is included. Anatomical Region Laterality Modality LEG L Ultrasound 07/06/2023 11:3 6 AM THERAPIST RADIATION Impressions 07/06/2023 11:36 AM THERAPIST RADIATION 1. 2.7 cm hematoma in the left inguinal region. No sonographic evidence of pseudoaneurysm or arteriovenous fistula. Dictated by Marvin Cheema MD @ 07/06/2023 11:36:57 AM (Electronically Signed) Narrative 07/06/2023 11:36 AM THERAPIST RADIATION For Patients: ??As a result of the [...] ofpseudoaneurysm or arteriovenous fistula. Dictated by Marvin hCeema MD @ 07/06/2023 11:36:57 AM (Electronically Signed) Emely Dominique MD [place] * SCAN-CARDIAC STRIP (07/06/2023 8:05 AM THERAPIST RADIATION) Scanner OTHER * (ABNORMAL) HEMOGLOBIN (07/06/2023 6:34 AM THERAPIST RADIATION) Only the most recent of3 resultswithin the time period is included. HEMOGLOBIN 8.5(L) 13.5 - 17.5 g/dL 07/06/2023 7:06 AM THERAPIST RADIATION [facility] MCV 85 80 - 100 fL 07/06/2023 7:06 AM THERAPIST RADIATION [facility] Blood BLOOD SPECIMEN / Unknown Venipuncture / Unknown 07/06/2023 6:34 AM THERAPIST RADIATION 07/06/2023 6:55 AM THERAPIST RADIATION Donald Lee MD HEMATOLOGY Performing Organization Address [facility] Co de Phone Number [facility] [address] [address], * (ABNORMAL) INR AM (07/06/2023 6:34 AM THERAPIST RADIATION) Only the most recent of4 resultswithin the time period is included. INR 1.6(H) <1.3 07/06/2023 7:06 AM THERAPIST RADIATION [facility] PROTIME 17.8(H) 10.3 - 12.3 sec 07/06/2023 7:06 AM THERAPIST RADIATION [facility] Blood BLOOD SPECIMEN / Unknown Venipuncture / Unknown 07/06/2023 6:34 AM THERAPIST RADIATION 07/06/2023 6:55 AM THERAPIST RADIATION Narrative [facility] - 07/06/2023 7:06 AM THERAPIST RADIATION ?Therapeutic Range 2.0-3.0 for most anticoagulated patients [...] Donald Lee MD HEMATOLOGY Performing Organization Address [facility] Co de Phone Number [facility] [address] [place] [address], * SCAN-CARDIAC STRIP (07/06/2023 5:40 AM THERAPIST RADIATION) Scanner OTHER * XR CHEST 1 VIEW PORTABLE (07/01/2023 9:16 PM THERAPIST RADIATION) Anatomical Region Laterality Modality HEART, THORAX, CHEST Digital Rad iography 07/01/2023 9:19 PM THERAPIST RADIATION Narrative 07/01/2023 9:19 PM THERAPIST RADIATION For Patients: ??As a result of the [...] VENOUS ISTAT W QUEEN (07/01/2023 7:50 PM THERAPIST RADIATION) LACTATE VENOUS SCREEN ISTAT <1.8 <=2.0 07/01/2023 7:54 PM THERAPIST RADIATION [facility] LACTATE SCREEN VENOUS POCT 1.5 <=2.0 07/01/2023 7:54 PM THERAPIST RADIATION [facility] Blood BLOOD SPECIMEN / Unknown 07/01/2023 7:50 PM THERAPIST RADIATION 07/01/2023 7:54 PM THERAPIST RADIATION Mari Ibarra MD LABORATORY [facility]AL LABORATORY [address] [place] [address], * (ABNORMAL) TROPONIN T (HS) ONE TIME (07/01/2023 7:41 PM THERAPIST RADIATION) Pathologist [facility] [place] TROPONIN T HS 74(H) 6-15 ng/L ng/L 07/01/2023 8:14 PM THERAPIST RADIATION [facility] Blood BLOOD SPECIMEN / Unknown Butterfly / Unknown 07/01/2023 7:41 PM THERAPIST RADIATION 07/01/2023 7:49 PM THERAPIST RADIATION Anw Ed Triage CHEMISTRY Performing Organization Address [facility] Co de Phone Number [facility] [address] [place] [address], [place] * TYPE AND SCREEN ONLY (07/01/2023 7:41 PM THERAPIST RADIATION) Only the most recent of3 resultswithin the time period is included. Pathologist [facility] [place] ABORH A Rh Positive 07/01/2023 10:05 PM THERAPIST RADIATION [facility] BLOOD BANK ANTIBODY SCREEN Negative Negative 07/01/2023 10:05 PM THERAPIST RADIATION [facility] SPECIMEN EXPIRATION DATE/TIME 07/04/23 23:59 07/01/2023 10:05 PM THERAPIST RADIATION [facility] Blood BLOOD SPECIMEN / Unknown Butterfly / Unknown 07/01/2023 7:41 PM THERAPIST RADIATION 07/01/2023 9:29 PM THERAPIST RADIATION Mari Ibarra MD BLOOD BANK [facility] [address] [place] [address], * EXTRA TUBE QUEEN ON ICE (07/01/2023 7:40 PM THERAPIST RADIATION) Blood BLOOD SPECIMEN / Unknown Butterfly / Unknown 07/01/2023 7:40 PM THERAPIST RADIATION 07/01/2023 7:51 PM THERAPIST RADIATION Mari Ibarra MD LABORATORY [facility] [address] [place] [address], * (ABNORMAL) TROPONIN T (HS) ACUTE W/2HR REFLEX (07/01/2023 6:47 PM THERAPIST RADIATION) TROPONIN T HS 71(H) 6-15 ng/L ng/L 07/01/2023 7:25 PM THERAPIST RADIATION [facility] Blood BLOOD SPECIMEN / Unknown Venipuncture / Unknown 07/01/2023 6:47 PM THERAPIST RADIATION 07/01/2023 6:52 PM THERAPIST RADIATION Narrative [facility] - 07/01/2023 7:25 PM THERAPIST RADIATION hs-cTnT (Elecsys Troponin T Gen 5) concentration [...] An Ed Triage CHEMISTRY Performing Organization Address [facility]/State/[facility] Co de Phone Number [facility] [employer] LABORATORY-CENTRAL LABORATORY [address] [place] [address], * (ABNORMAL) PRO-BNP (07/01/2023 6:47 PM THERAPIST RADIATION) [facility] Signature PRO-BNP 372(H) <125 pg/mL 07/01/2023 7:26 PM THERAPIST RADIATION [facility] [employer] [facility] Blood BLOOD SPECIMEN / Unknown Venipuncture / Unknown 07/01/2023 6:47 PM THERAPIST RADIATION 07/01/2023 6:52 PM THERAPIST RADIATION Narrative [facility] [employer] [facility] - 07/01/2023 7:26 PM THERAPIST RADIATION The following cut-points have been suggested for [...] failure. ? Anw Ed Triage SEND OUTS Performing Organization Address [facility]/ZIP Co de Phone Number [facility] [address] [place] [address], [place] * (ABNORMAL) BASIC METABOLIC PANEL (07/01/2023 6:47 PM THERAPIST RADIATION) Only the most recent of3 resultswithin the time period is included. SODIUM 140 136 - 145 mmol/L 07/01/2023 7:25 PM [facility] TRAL LABORATORY POTASSIUM 4.3 3.5 - 5.1 mmol/L 07/01/2023 7:25 PM [facility] TRAL LABORATORY CHLORIDE 103 98 - 107 mmol/L 07/01/2023 7:25 PM [facility] CO2,TOTAL 27 22 - 29 mmol/L 07/01/2023 7:25 PM [facility] TRAL LABORATORY ANION GAP 10 5 - 18 07/01/2023 7:25 PM [facility] TRA LABORATORY GLUCOSE 136(H) 70 - 99 mg/dL 07/01/2023 7:25 PM [facility] TRAL LABORATORY CALCIUM 9.1 8.8 - 10.2 mg/dL 07/01/2023 7:25 PM [facility] TRAL LABORATORY BUN 18 8 - 23 mg/dL 07/01/2023 7:25 PM [facility] TRAL LABORATORY CREATININE 0.97 0.70 - 1.20 mg/dL 07/01/2023 7:25 PM [facility] TRAL LABORATORY BUN/CREAT RATIO 19 10 - 20 4 7:25 PM [facility] TRAL LABORATORY eGFR 85(L) >90 mL/min/1.7 3m2 07/01/2023 7:25 PM [facility] TRAL LABORATORY Comment:As of 2021, eG FR is calculated by the CKD-EPI creatinine equation without race adjustment. ??eGFR can be influenced by muscle mass, exercise, and diet. ??The reported eGFR is an estimation only and is only applicable if the renal function is stable. Blood BLOOD SPECIMEN / Unknown Venipuncture / Unknown 07/01/2023 6:47 PM THERAPIST RADIATION 07/01/2023 6:52 PM THERAPIST RADIATION Anw Ed Triage CHEMISTRY [facility] [address] [place] [address], * (ABNORMAL) CBC W PLT NO DIFF (07/01/2023 6:46 PM THERAPIST RADIATION) Only the most recent of3 resultswithin the time period is included. WHITE BLOOD COUNT 10.0 4.5 - 11.0 thou/cu mm 07/01/2023 6:55 PM THERAPIST RADIATION [facility] TRAL LABORATORY RED BLOOD COUNT 3.28(L) 4.30 - 5.90 mil/cu mm 07/01/2023 6:55 PM THERAPIST RADIATION [facility] TRAL LABORATORY HEMOGLOBIN 9.2(L) 13.5 - 17.5 g/dL 07/01/2023 6:55 PM THERAPIST RADIATION [facility] TRAL LABORATORY HEMATOCRIT 27.6(L) 37.0 - 53.0 % 07/01/2023 6:55 PM THERAPIST RADIATION [facility] TRAL LABORATORY MCV 84 80 - 100 fL 07/01/2023 6:55 PM THERAPIST RADIATION [facility] TRAL LABORATORY MCH 28.0 26.0 - 34.0 pg 07/01/2023 6:55 PM THERAPIST RADIATION [facility] TRAL LABORATORY MCHC 33.3 32.0 - 36.0 g/dL 07/01/2023 6:55 PM THERAPIST RADIATION [facility] TRAL LABORATORY RDW 13.9 11.5 - 15.5 % 07/01/2023 6:55 PM THERAPIST RADIATION [facility] TRAL LABORATORY PLATELET COUNT 280 140 - 440 thou/cu mm 07/01/2023 6:55 PM THERAPIST RADIATION [facility] TRAL LABORATORY MPV 9.6 6.5 - 11.0 fL 07/01/2023 6:55 PM [facility] TRAL LABORATORY NRBC 0.0 % 07/01/2023 6:55 PM THERAPIST RADIATION [facility] TRAL LABORATORY ABS NRBC 0.0 thou /cu mm 07/01/2023 6:55 PM THERAPIST RADIATION [facility] TRAL LABORATORY Blood BLOOD SPECIMEN / Unknown Venipuncture / Unknown 07/01/2023 6:46 PM THERAPIST RADIATION 07/01/2023 6:52 PM THERAPIST RADIATION Narrative [facility] - 07/01/2023 6:55 PM THERAPIST RADIATION RN to order if patient presents with shortness of breath or wheezing. Anw Ed Triage HEMATOLOGY Performing Organization Address [facility] Co de Phone Number [facility] [address] [place] [address], * EKG 12 LEAD (07/01/2023 6:28 PM THERAPIST RADIATION) Only the most recent of4 resultswithin the time period is included. Interpretation Sinus rhythm with Premature supraventricular complexes Left bundle branch block Abnormal ECG BEYOND NOW Ventricular Rate 90 BPM BEYOND NOW Atrial Rate 90 BPM BEYOND NOW P-R Interval 178 ms BEYOND NOW QRS Duration 128 ms BEYOND NOW QT 396 ms BEYOND NOW QTc 484 ms BEYOND NOW P Garfield 72 degrees BEYOND NOW R Garfield 72 degrees BEYOND NOW T Garfield 131 degrees BEYOND NOW 07/01/2023 6:28 PM THERAPIST RADIATION 07/02/2023 2:37 PM THERAPIST RADIATION An Ed Triage EKG ORD Performing Organization Address [facility] de Phone Number BEYOND NOW [place], [place] * SCAN-CARDIAC STRIP (06/30/2023 10:36 AM THERAPIST RADIATION) Scanner OTHER * MAGNESIUM (06/30/2023 8:00 AM THERAPIST RADIATION) MAGNESIUM 1.6 1.6 - 2.4 mg/dL 06/30/2023 9:12 AM THERAPIST RADIATION [facility] Blood BLOOD SPECIMEN / Unknown Venipuncture / Unknown 06/30/2023 8:00 AM THERAPIST RADIATION 06/30/2023 8:07 AM THERAPIST RADIATION Bella Benavidez MD CHEMISTRY Performing Organization Address City/[facility] Co de Phone Number [facility] [address] [place] [address], * SCAN-CARDIAC STRIP (06/30/2023 4:01 AM THERAPIST RADIATION) Scanner OTHER * SCAN-CARDIAC STRIP (06/29/2023 3:55 PM THERAPIST RADIATION) Scanner OTHER * (ABNORMAL) ACTIVATED CLOTTING TIME [id number] ACT (06/29/2023 1:26 PM THERAPIST RADIATION) Only the most recent of2 resultswithin the time period is included. [facility] ACTIVATED CLOTTING TIME, POCT 143(H) 74 - 125 sec 06/29/2023 3:03 PM THERAPIST RADIATION [facility] Blood BLOOD SPECIMEN / Unknown 06/29/2023 1:26 PM THERAPIST RADIATION 06/29/2023 3:03 PM THERAPIST RADIATION Bella Benavidez MD HEMATOLOGY [facility] [address] [place] [address], * XR PELVIS 1 VIEW PORTABLE (06/29/2023 12:07 PM THERAPIST RADIATION) Anatomical Region Laterality Modality Pelvis Digital Radiogra phy 06/29/2023 12:3 5 PM THERAPIST RADIATION Narrative 06/29/2023 12:35 PM THERAPIST RADIATION For Patients: ??As a result of the [...] RBC (NURSE COMMUNICATION ORDER) (06/29/2023 11:32 AM THERAPIST RADIATION) Blood BLOOD SPECIMEN / Unknown Bella Benavidez MD NURSING BLOOD BANK * (ABNORMAL) COMPREHENSIVE BLOOD GAS ARTERIAL (06/29/2023 11:22 AM THERAPIST RADIATION) PH, ARTERIAL 7.39 7.35 - 7.45 06/29/2023 11:22 AM THERAPIST RADIATION [facility] [employer] LABORATORY-CE NTRAL LABORATORY PCO2, ARTERIAL 41 35 - 48 mmHg 06/29/2023 11:22 AM THERAPIST RADIATION [facility] LABORATORY-CE NTRAL LABORATORY PO2, ARTERIAL 220(H) 83 - 108 mmHg 06/29/2023 11:22 AM [facility] HCO3, ARTERIAL 25 21 - 28 mmol/L 06/29/2023 11:22 AM [facility] BASE EXCESS, ARTERIAL -0.2 -2.0 - 3.0 06/29/2023 11:22 AM [facility] O2 SATURATION, ARTERIAL 100(H) 94 - 98 % 06/29/2023 11:22 AM [facility] PATIENT TEMPERATURE 37.0 Degrees C 06/29/2023 11:22 AM [facility] LAB[facility] COLLECTION SITE ARTERIAL LINE 06/29/2023 11:22 AM [facility] HEMOGLOBIN,BLOO D GAS 8.2(L) 13.5 - 17.5 g/dL 06/29/2023 11:22 AM [facility] SODIUM 134(L) 136 - 145 mmol/L 06/29/2023 11:22 AM [facility] POTASSIUM 4.8 3.5 - 5.1 mmol/L 06/29/2023 11:22 AM [facility] CHLORIDE 108(H) 98 - 107 mmol/L 06/29/2023 11:22 AM [facility] Blood BLOOD SPECIMEN / Unknown 06/29/2023 11:22 AM THERAPIST RADIATION 06/29/2023 11:23 AM THERAPIST RADIATION Bella Benavidez MD CHEMISTRY Performing Organization Address City/[facility] Co de Phone Number [facility] [address] [place] [address], * RBC W/O TYPE & SCREEN (06/29/2023 11:11 AM THERAPIST RADIATION) Only the most recent of2 resultswithin the time period is included. QUANTITY 2 06/29/2023 11:11 AM [facility] BLOOD BANK Blood BLOOD SPECIMEN / Unknown 06/29/2023 11:09 AM THERAPIST RADIATION Ahmet Levy MD BLOOD BANK [facility] Socialite[facility]TRAL LAB BLOOD BANK [address] [place] [address], * RED BLOOD CELLS EA UNIT (06/29/2023 11:09 AM THERAPIST RADIATION) Only the most recent of4 resultswithin the time period is included. CROSSMATCH Compatible Compatible [facility] PRODUCT BLOOD TYPE A Rh Positive [facility] PRODUCT ID NUMBER [id number] [facility] [employer] LAB BLOOD BANK PRODUCT STATUS /Relea sed [facility] PRODUCT DESCRIPTION RBC -1 LR [facility] PRODUCT CODE [id number] [facility] Ahmet Levy MD BLOOD BANK Performing Organization Address [facility] Co de Phone Number [facility] [address] [place] [address], * HCHG TUBE PR1, HCHG INSTRUMENT DISP PR10, HCHG STYLET PR1, HCHG MOUTHPIECE PR1 (06/29/2023 10:10 AMCST) Narrative Carlos Briggs CRNA - 06/29/2023 10:10 AM THERAPIST RADIATION Carlos Briggs CRNA ? 06/29/2023 10:11 AM [...] ORDERABLES * CVL TAVR (06/29/2023 8:49 AM THERAPIST RADIATION) Anatomical Region Laterality Modality X-Ray Angiograph y, X-Ray Angiography 06/29/2023 8:49 AM THERAPIST RADIATION Narrative Transcriptions Bella Benavidez MD - 06/29/2023 11:08 AM CST [facility] Cardiac Catheterization Report Name: VILMA UGARTE Event Date: 06/29/2023 08:49 Excellian ID #: [id number] BASIM #: [id number] Diagnostic Physician: BELLA BENAVIDEZ [facility] Interventional Physician: BELLA BENAVIDEZ [facility] Referring Physician: Date: 1955 Gender: Male Age: [...] ? LV Pressure = 165/15. Consent & [place] Protocol The risks, benefits, and alternatives of the procedure were discussed withthe patient and written informed consent was obtained. [place] protocol was followed. TIME OUT conducted just prior tostarting procedure confirmed patient identity, site/side, procedure,patient position, and availability of correct equipment and implants (ifapplicable). Staff Name Title Jony Tan RN, Mellina RN Nurse Britton, Tracy RTR Monitor [place], Johnniesasha WARDROBE TECHNICIAN Supervisor Detasseling Crew Lulettykenjaison, Vera CVT Supervisor Detasseling Crew Junior Castellanos Fellow Leon Broussard NP Physician Supervising Producer BELLA BENAVIDEZ Grade Checker AHMET LEVY Vascular Surgeon Rachael Serna Fellow [...] 08:49 1% Lidocaine 10 ml Subcut Junior Castellanos, Junior 08:55 1% Lidocaine 10 ml Subcut EmanuelJunior you, Junior 08:58 Heparin 8000 units IV Bella Benavidez Mellina RN 09:02 O2 2 l per min Nasal cannula Bella Benavidez Mellina RN 09:08 Heparin 3000 units IV Bella Benavidez Mellina RN 09:12 Fentanyl 25 mcg IV JadynslBella Mellina RN 09:12 Versed 0.5 mg IV GoesslBella Mellina RN 09:23 O2 4 l per min Nasal cannula LeonidlBella Mellina RN 09:35 Protamine 70 mg IV JadynslBella Mellina RN 09:38 Fentanyl 25 mcg IV JadynslBella Mellina RN 09:38 Versed 0.5 mg IV JadynslBella Mellina RN 09:42 Versed 0.5 mg IV JadynslBella Mellina RN 09:42 Fentanyl 25 mcg IV Goessl, Neelam Oakley RN 09:49 Versed 0.5 mg IV JadynslBella Mellina RN 09:49 Fentanyl 25 mcg IV JadynsBella lieberman Mellina RN 09:55 Fentanyl 25 mcg IV JadynslBella Mellina RN 09:55 Versed 0.5 mg IV Bella Benavidez Mellina RN I personally monitored the patient?s conscious sedation during theprocedure. Conscious sedation starts with the first sedation medication dose ofFentanyl or Versed and ends when the procedure is completed, the patientis stable for recovery status, and the physician or other qualified healthcare professional providing the sedation ends personal [id number] time with the patient. The medications listed above were verbally ordered by me and read back tome as documented above. Refer to the procedure log report for additional case details. electronically signed on 06/29/2023 11:08:03 AM with status of Final Bella Benavidez MD [facility] [address] [place] [address] (p) (f) Bella Benavidez MD CV IMAGING * (ABNORMAL) Glucose, Fasting (06/29/2023 6:20 AM THERAPIST RADIATION) GLUCOSE 174(H) 70 - 99 mg/dL 06/29/2023 6:58 AM THERAPIST RADIATION [facility] LABOR[facility] Blood BLOOD SPECIMEN / Unknown Venipuncture / Unknown 06/29/2023 6:20 AM THERAPIST RADIATION 06/29/2023 6:30 AM THERAPIST RADIATION Leon Broussard NP CHEMISTRY Performing Organization Address City/[facility] Co de Phone Number [facility] [address] [place] [address], * SCAN-CARDIAC STRIP (06/29/2023 12:00 AM THERAPIST RADIATION) Narrative 06/29/2023 12:00 AM THERAPIST RADIATION Ordered by an unspecified provider. Other Clinical Staff OTHER * ELECTRIC POWER LINE EXAMINER QUESTION TEST (06/23/2023 9:42 AM THERAPIST RADIATION) QABT Question Yes 06/23/2023 9:56 AM THERAPIST RADIATION [facility] BLOOD BANK Blood BLOOD SPECIMEN / Unknown Venipuncture / Unknown 06/23/2023 9:42 AM THERAPIST RADIATION 06/23/2023 9:50 AM THERAPIST RADIATION Bella Benavidez MD BLOOD BANK Performing Organization Address [facility] Co de Phone Number [facility] [address] [place] [id number], * ALBUMIN (06/23/2023 9:42 AM THERAPIST RADIATION) ALBUMIN 4.1 4.0 - 4.9 g/dL 06/23/2023 10:19 AM THERAPIST RADIATION [facility] Blood BLOOD SPECIMEN / Unknown Venipuncture / Unknown 06/23/2023 9:42 AM THERAPIST RADIATION 06/23/2023 9:50 AM THERAPIST RADIATION Bella Benavidez MD CHEMISTRY [facility] [address] [place] [address], [place] * CTA CHEST ABD PELVIS TAVR - DUAL READ (05/16/2023 2:46 PM THERAPIST RADIATION) An[facility] Laterality Modality CHEST, Abdomen, Pelvis Computed Tomography Impressions 05/18/2023 3:24 PM THERAPIST RADIATION 1. Please see separate dictation for all [...] PM (Electronic Signature) Narrative 05/18/2023 3:24 PM THERAPIST RADIATION Images from the original result were not [...] 5?? Optimal deployment projections (self expandable device): FBAIAN 19??, CAU 23?? Left ventricle / aortic [...] PATIENT: Results are automatically released to your [employer]) account once available, in compliance with federal regulations. ?? This means that you may see your results before your provider has had a chance to review them. ??Please allow 2-3 business days for your provider to comment on the results. Cardiac Imaging Fellow: Monae Chamorro MD Reading Chicken Vaccinator: Donald Sánchez MD MPH [facility] 05/16/2023 For Patients: As a result of the Century Cures Act, [...] chest, abdomen and pelvis was performed per [facility] protocol. Please see Cardiology dictation for details on technique. ?? 100 cc Omnipaque-350 intravenous contrast. ?? This exam is being performed in conjunction with the services provided by the [facility] ([facility]). CLINICAL HISTORY: Over-read of non-cardiovascular [...] MD CT * CREATININE,ISTAT (05/16/2023 2:23 PM THERAPIST RADIATION) CREATININE, POCT 0.60 0.57 - 1.11 mg/dL 05/16/2023 2:57 PM THERAPIST RADIATION [facility] eGFR >90 >90 mL/min/1.7 3m2 05/16/2023 2:57 PM THERAPIST RADIATION [facility] Comment:As of 2021, eG FR is calculated by the CKD-EPI creatinine equation without race adjustment. eGFR can be influenced by muscle mass, exercise, and diet. The reported eGFR is an estimation only and is only applicable if the renal function is stable. Blood BLOOD SPECIMEN / Unknown 05/16/2023 2:23 PM THERAPIST RADIATION 05/16/2023 2:57 PM THERAPIST RADIATION Bella Benavidez MD CHEMISTRY Performing Organization Address City/[facility]/ZIP Co de Phone Number [facility] [address] [place] [address], * (ABNORMAL) HEMATOCRIT/HGB,ISTAT (05/16/2023 2:18 PM THERAPIST RADIATION) HEMATOCRIT, POCT 37.0 37.0 - 53.0 % 05/16/2023 2:57 PM THERAPIST RADIATION [facility] HEMOGLOBIN, POCT 12.6(L) 13.5 - 17.5 g/dL 05/16/2023 2:57 PM THERAPIST RADIATION [facility] Blood BLOOD SPECIMEN / Unknown 05/16/2023 2:18 PM THERAPIST RADIATION 05/16/2023 2:57 PM THERAPIST RADIATION Bella Benavidez MD [facility]MISTRY [facility] [address] [place] [address], from Last 3 Months Advance Directives Latest [...] 8:24 AM 12/16/2015 1:04 PM Care Teams Managed Care Coordinator Relationship Specialty Start Date End Date Emely Henson PA-C [address] [place] [address] PCP - General Emergency Medicine 04/20/23 Paul Soler MD [address] [place] [address] Pulmonology Pulmonary Medicine 09/30/22
--- NOTE | 2023-07-27 09:15 | MR_ITS ---
[facility] [address] [facility] [address] Phone:?[phone] Fax:?[phone] Referring Physician Information: Joseph Khan [address] [facility] [address] Phone:?[phone] Fax:?[phone] Patient:?Tobi Ugarte D.O.B:?1955 Sex:?Male Phone:?[phone] [facility] MRN:?[id number] Exam Date:?07/27/2023 EXAM: MR ABDOMEN WITHOUT AND WITH CONTRAST CLINICAL INFORMATION: Pancreas mass/fluid collection. TECHNICAL INFORMATION: Multiplanar, multiphase T1/T2 MR imaging of the abdomen completed prior to and following IV contrast administration (20 mL Dotarem; 0 mL discarded). COMPARISON: CTA abdomen 07/05/2023. PET/CT 05/24/2023. Chest CT 8 05/16/[address] 04/21/2023. INTERPRETATION: Nonenhancing, encapsulated 59 x 49 x 46 mm fluid collection along the gastropancreatic location, adjacent to tail portion of pancreas; consistent with pseudocysts sequela of pancreatitis. Mild heterogenous enhancement of the tail portion of the pancreas, with focal 13 mm nonenhancing fluid intensity collection at the tail portion of the pancreas, axial images 12 and 13 series 8 and images 23-28 series 15, possibly representing small area of pancreatic necrosis. No additional pancreatic lesion or inflammation. No pancreatic duct dilatation is identified. No evidence of pathologic mesenteric or retroperitoneal adenopathy. No liver lesion. No biliary duct dilatation. The gallbladder is unremarkable in appearance. The adrenal glands, kidneys, spleen and GI tract are unremarkable as visualized. Normal caliber abdominal aorta. CONCLUSION: 1. Current MR findings appear to represent sequela of prior pancreatitis involving the tail portion of the pancreas with a 39 x 49 x 46 mm pseudocyst, interposed between the posterior margin of the stomach, splenic hilum and tail portion of pancreas. Additional 13 mm focal nonenhancing cystic collection at the expected level of the tail of pancreas may represent sequela of pancreatic necrosis. Clinical correlation regarding patient's symptoms and laboratory (amylase/lipase) correlation is recommended. Additional short-term follow-up pancreas protocol CT to monitor progression of current findings is recommended in 1-4 weeks depending on patient's clinical presentation. Results were discussed with Missy JEFFERSON, at office with Emely Henson at 9:30 AM 07/28/2023. Electronically signed on 07/28/2023 10:30:00 AM by Emir Truong M.D.
== END 2023-07-27 09:00 | disposition home or self-care (01) ==
LOC: MRI 08:59
PROVIDERS: PCP Physician Assistant Medical; Visit Provider Physician Assistant Medical
DX: K86.9 Disease of pancreas, unspecified (principal)
CPT/HCPCS: 74183; A9575

== ENCOUNTER 2023-08-01 09:43 | Outpatient (CLI) | payer MEDICARE, BC, SELFPAY ==
--- OUTSIDE RECORDS SUMMARY | 2023-08-02 06:14 | XMS_ITS | Clinical Summary ---
Author Name Unknown Organization [facility] Address [place], [place] [address] Care Team Providers [facility] Account Manager Name Role Phone Emely Henson PA-C Primary Care Provider + [phone] Paul Soler MD Unavailable [phone] Allergies Active Allergy Reactions Criticality Noted Date [...] 3 times daily if needed. 0 Active metoprolol tartrate (LOPRESSOR) 25 mg tabletIndication s:Paroxysmal atrial fibrillation (HC) Take 0.5 Tablets (12.5 mg) by mouth two times daily. 90 Tablet 3 4 Active blood-glucose meter (BLOOD GLUCOSE MONITORING)Indic ations:Diabetes mellitus without complication (HC) Dispense meter, test strips, lancets covered by pt ins. E11.9 NIDDM type II - Test 1 time/day 1 Device 0 6 07/06/19 24 Discontinued(P harmacist change per medication history (E-cancel not sent)) acetaminophen (TYLENOL EXTRA STRGTH) 500 mg tabletIndication s:Post-op pain Take 1 Tablet (500 mg) by mouth every 4 hours if needed for Pain (For mild pain.). Max acetaminophen dose: 4000mg in 24 hrs. 0 2 07/06/19 24 Discontinued(P harmacist change per medication history (E-cancel not sent)) triamcinolone (ARISTOCORT) 0.1 % ointmentIndicati ons:Eczema, unspecified type Apply topically to affected area(s) three times daily. 80 g 1 3 07/06/19 24 Discontinued(P harmacist change per medication history (E-cancel not sent)) mometasone-formo terol (Dulera) 200-5 mcg/actuation inhalerIndicatio ns:BENTLEY (dyspnea on exertion),Bronch iolitis Inhale 2 Puffs by mouth two times daily. 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 04/19/2012 10/15/2013 Overview: [...] Encounters Date Type Department Care Team Description 07/31/2023 9:36 AM RESP THER - 07/31/2023 11:59 PM RESP THER Hospital Encounter [facility] [address] [place] [address] Radha Hernandez MD 07/31/2023 Travel 07/28/2023 2:30 PM RESP THER Office Visit [facility] [address] [place] [address] Junior Castellanos MBBS CV Valve Est (INPERSON:VALVE EST: 30DAY S/P TAVR, LABS ECHO CT MORPH PRIOR, NEEDS EKG, KCCQ12, 5MWALK, LETTER GIVEN, HJK//PCP: Emely Henson PA-C) 07/28/2023 2:00 PM RESP THER Orders Only [facility] [address] [place] [address] Lab 07/28/2023 9:41 AM RESP THER - 07/28/2023 11:59 PM RESP THER Hospital Encounter [facility] [address] [place] [address] Radha Hernandez MD 07/28/2023 Travel 07/26/2023 9:18 AM RESP THER - 07/26/2023 11:59 PM RESP THER Hospital Encounter [facility] [address] [place] [address] Radha Hernandez MD 07/26/2023 8:00 AM RESP THER Ancillary Procedure [facility] [address] [place] [address] 07/26/2023 Travel 07/24/2023 Orders Only [facility] [address] [place] [address] Deanna Olivas 1 scan: (1-Ord) Final 07/21/2023 9:00 AM RESP THER - 07/21/2023 11:59 PM RESP THER Hospital Encounter [facility] [address] [place] [address] Radha Hernandez MD 07/20/2023 8:36 AM RESP THER - 07/20/2023 11:59 PM RESP THER Hospital Encounter [facility] [address] [place] [address] Junior Castellanos MBBS Severe aortic stenosis 07/20/2023 Travel 07/10/2023 Orders Only [facility] Staff, Other Clinical 1 scan: (1-Ord) 07/10/2023 07/06/2023 4:40 AM RESP THER - 07/06/2023 2:05 PM RESP THER Hospital Encounter [facility] [address] [place] [address] [facility] Hospitalists [facility], MD Mart Olivas, Stevo Arana MD Discharge Disposition: Home Self Care 07/06/2023 Travel 07/01/2023 6:31 PM RESP THER - 07/01/2023 10:57 PM RESP THER Emergency [facility] Emergency Department [address], [place] [phone] Mari Ibarra MD Fatigue, unspecified type (Primary Dx); Lightheadedness Discharge Disposition: Home Self Care 07/01/2023 Travel 06/29/2023 9:59 AM RESP THER Anesthesia Event [facility] [address] [address] Inna Molina MD 06/29/2023 9:15 AM RESP THER - 06/29/2023 1:38 PM RESP THER Surgery [facility] [address], [place] [phone] Ahmet Levy MD LEFT CUTDOWN FEMORAL ARTERY; LEFT ENDARTERECTOMY; LEFT LOWER EXTREMITY ANGIOGRAM; ANGIOPLASTY 06/29/2023 5:54 AM RESP THER - 06/30/2023 3:30 PM RESP THER Hospital Encounter [facility] [address], [place] [phone] Bella Benavidez MD Severe aortic stenosis (Primary Dx); Bicuspid aortic valve; Type 2 diabetes mellitus without complication, without long-term current use of insulin (HC); PAD (peripheral artery disease) (HC) Discharge Disposition: Home Self Care 06/29/2023 Travel 06/28/2023 Orders Only [facility] [address] [place], [place] [phone] Leon Broussard NP 1 scan: (1-Ord) CHART 06/23/2023 10:00 AM RESP THER Office Visit [facility] [address] [address] [place] [phone] Junior Castellanos MBBS CV Valve Est (VALVE EST:PRE-OP TAVR, LABS PRIOR,NEEDS EKG,KCCQ12, 5M WALK,LETTER SENT, HJK//PCP: Emely Henson PA-C/) 06/23/2023 9:30 AM RESP THER Orders Only [facility] [address] [facility] [place] [address] Lab 06/23/2023 Telephone [facility] [place] [address] [place] [address] TeetersPaul MD Results (CT results) 06/23/2023 Orders Only [facility] [address] [facility] [address] [place] [phone] Junior Castellanos MBBS <No scans attached> 06/23/2023 Travel 06/08/2023 Telephone [facility] [address] [facility] [address] [place] [phone] Bella Benavidez MD Surgery Scheduled (TAVR scheduling. ) 06/06/2023 Telephone [facility] [address] [phone] Bella Benavidez MD Health Maintenance Update (Dental Clearance Update) 06/02/2023 Telephone [facility] [address] [phone] Bella Benavidez MD Health Maintenance Update (Schedule TAVR) 06/02/2023 Telephone [facility] [address] [address] Bella Benavidez MD Health Maintenance Update 05/30/2023 Refill [facility] [address] [place] [address] Dexter Lofton MD Refill Request (Metformin) 05/23/2023 Telephone [facility] [address] [place] [phone] Bella Benavidez MD Health Maintenance Update (Post valve conference discussion /) 05/16/2023 3:30 PM RESP THER Office Visit [facility] [address] [place] [phone] Ethel Salcido, Ronaldo Mcdaniel MD CV General Cardiology Est (ref: Carlito with CT prior//PCP: Emely Henson PA-C/) 05/16/2023 1:55 PM RESP THER - 05/16/2023 11:59 PM RESP THER Hospital Encounter [facility] [address] [place] [address] Bella Benavidez MD Severe aortic stenosis 05/16/2023 Travel 05/15/2023 Telephone [facility] [address] [facility] [address] [place] [address] Fatuma De Oliveira, PCT from Last 3 [...] 2 Heart Disease Father d 85 yo [place] aft er hip fracture Arthritis Mother Heart [...] Sign Reading Time Taken Comments Blood Pressure 137/74 07/28/2023 1:43 PM RESP THER Pulse 88 07/28/2023 1:43 PM RESP THER Temperature 36.8 ??C (98.2 ??F) 07/06/2023 8:10 AM CS T Respiratory Rate 15 07/20/2023 1:00 PM RESP THER Oxygen Saturation 95% 07/28/2023 1:43 PM RESP THER Inhaled Oxygen Concentration - - Weight 76.2 kg (168 lb) 07/28/2023 1:43 PM RESP THER Height 170.2 cm (5' 7) 07/28/2023 1:43 PM RESP THER Body Mass Index 26.31 07/28/2023 1:43 PM RESP THER Plan of Treatment Upcoming Encounters Date Type Department Care Team (Late st Contact Info) Description 08/02/2023 10:00 AM RESP THER Appointment [facility] [address] [place] [address] 08/04/2023 10:00 AM RESP THER Appointment [facility] [address] [place] [address] 08/04/2023 12:00 PM RESP THER Ancillary Procedure [facility] [address] [place] [address] Dr Mcdonald [address] [place] [address] 08/07/2023 10:00 AM RESP THER Appointment [address] [address] 08/09/2023 10:00 AM RESP THER Appointment [address] [address] 08/11/2023 10:00 AM RESP THER Appointment [address] [address] 08/14/2023 10:00 AM RESP THER Appointment [address] [address] 08/16/2023 10:00 AM RESP THER Appointment [address] [address] 08/16/2023 1:00 PM RESP THER Appointment [facility] [address] [place] [address] 08/16/2023 2:00 PM RESP THER Office Visit [facility] [address] [place] [address] Ahmet Levy MD [address] [facility] [address] [place] [address] 08/18/2023 10:00 AM RESP THER Appointment [address] [place] [address] 08/21/2023 10:00 AM CDT Appointment [facility] [address] [place] [address] 08/23/2023 10:00 AM CDT Appointment [facility] [address] [place] [address] 08/25/2023 10:00 AM CDT Appointment [facility] [address] [place] [address] 08/28/2023 10:00 AM CDT Appointment [facility] [address] [place] [address] 08/30/2023 10:00 AM CDT Appointment [facility] [address] [place] [address] 09/01/2023 10:00 AM CDT Appointment [facility] [address] [place] [address] 09/04/2023 10:00 AM CDT Appointment [facility] [address] [place] [address] 09/06/2023 10:00 AM CDT Appointment [facility] [address] [place] [address] 09/08/2023 10:00 AM CDT Appointment [facility] [address] [place] [address] 09/11/2023 10:00 AM CDT Appointment [facility] [address] [place] [address] 09/13/2023 10:00 AM CDT Appointment [facility] [address] [place] [address] 09/15/2023 10:00 AM CDT Appointment [facility] [address] [place] [address] 09/18/2023 10:00 AM CDT Appointment [facility] [address] [facility] [address] 09/20/2023 10:00 AM CDT Appointment [facility] [address] [facility] [address] 09/22/2023 10:00 AM CDT Appointment [facility] [address] [place] [address] 09/25/2023 10:00 AM CDT Appointment [facility] [address] [place] [address] 09/27/2023 10:00 AM CDT Appointment [facility] [address] [place] [address] 09/29/2023 10:00 AM CDT Appointment [facility] [address] [place] [address] 10/02/2023 10:00 AM CDT Appointment [facility] [address] [place] [address] 10/04/2023 10:00 AM CDT Appointment [facility] [address] [place] [address] 10/06/2023 10:00 AM CDT Appointment [facility] [address] [place] [address] 10/09/2023 10:00 AM CDT Appointment [facility] [address] [place] [address] 10/11/2023 10:00 AM CDT Appointment [facility] [address] [place] [address] 10/23/2023 9:30 AM CDT Office Visit [facility] [address] [facility] [address] [place] [address] Paul Soler MD [address] [facility] [address] [place] [address] Goals Goal Patient Goal Type Associated Problems Recent Progress Patient-Stated? Author BLOOD PRESSURE - MAINTAINS BP less than 140/90 Blood Pressure No Arya Stone MD Medical Devices Implanted Type Area Personal Driver Device Identifier Shelf Expiration Date Model / Serial / Lot [id number] e Canclls Crushed 60cc [] Implanted:Qty: 1 on 08/22/2006 at [facility] Explanted:at [facility] (Quantity not on file) Spine Allosource 05/17/2011 [id number]# / [id number] / [id number] e Canclls Crushed 30cc [] Implanted:Qty: 1 on 08/22/2006 at [facility] Explanted:at [facility] (Quantity not on file) Spine [employer]osource 11/16/2010 [id number]# / [id number] / Vesna Dayanara [id number] - [id number] Implanted:Qty: 6 on 08/22/2006 at [facility] Spine HOWMEDICA [id number]# / / Screw Polyaxial 6.5x45mm - [id number] Implanted:Qty: 6 on 08/22/2006 at [facility] Spine [employer] [id number]# / / Marin Dayanara Rad 70mm 108mm Radius - [id number] Implanted:Qty: 2 on 08/22/2006 at [facility] Spine [employer] [id number]# / / Wedge Tag Acufex 3.7mm - [id number] Implanted:Qty: 3 on 08/25/2011 at [facility] Left: Shoulder [employer] [id number]# / / [id number] Screw Cerv Ant 4x15mm Mcdowell Translational Va Slf Drill - [id number] Implanted:Qty: 3 on 03/04/2022 by Donald Alba MD at [facility] N/A: Spine Medtronic Spine/Ortho [id number] / / Plate Cerv 1lvl 25mm Mcdowell Vision Elite Ant - [id number] Implanted:Qty: 1 on 03/04/2022 by Donald Alba MD at [facility] N/A: Spine Medtronic Spine/Ortho [id number] / / [id number] e Matrix 1cc Steve Plus Paste Dbm Implanted:Qty: 1 on 03/04/2022 by Donald Abla MD at [facility] Explanted:at [facility] (Quantity not on file) N/A: Spine Medtronic Spine/Ortho 10/12/2023 [id number] / [id number] / [id number] Spinal Graft Block Robert Implanted:Qty: 1 on 03/04/2022 by Donald Alba MD at [facility] Explanted:at [facility] (Quantity not on file) N/A: Spine Medtronic Spine/Ortho 02/24/2024 [id number] / [id number] / Screw Cerv Ant 4x13mm Mcdowell Translational Va Slf Drill - [id number] Implanted:Qty: 1 on 03/04/2022 by Donald Alba MD at [facility] N/A: Spine Medtronic Spine/Ortho [id number] / / Tissue Pericardium 0.8x8cm Photofix Bovine - [id number] Implanted:Qty: 1 on 06/29/2023 by Ahmet Levy MD at [facility] Left: Groin [employer]ife Inc 02/03/2025 [id number] / / [id number] Description:CryoLife PhotoFi x Decellularized Bovine Pericardium 0.8cm x 8cm; Lot Number [id number]; Reference Number [id number]; Implanted to the left groin by Dr. Levy on 06/29/2023 Procedures Procedure Name Priority Date/Time Associated Diagnosis Comments GLUCOSE METER Routine 07/31/2023 10:46 AM RESP THER SCAN-CARDIAC REHABILITATION 07/31/2023 9:40 AM RESP THER EKG 12 LEAD Routine 07/28/2023 1:39 PM RESP THER Severe aortic stenosis CBC W PLT NO DIFF Routine 07/28/2023 1:3 5 PM RESP THER Severe aortic stenosis BASIC METABOLIC PANEL Routine 07/28/2023 1:35 PM RESP THER Severe aortic stenosis GLUCOSE METER Routine 07/28/2023 10:44 AM RESP THER SCAN-CARDIAC REHABILITATION 07/28/2023 9:45 AM RESP THER GLUCOSE METER Routine 07/26/2023 9:42 AM RESP THER SCAN-CARDIAC REHABILITATION 07/26/2023 9:40 AM RESP THER ECHO TTE LIMITED WO CONTRAST W COLOR W LTD DOPPLER Routine 07/26/2023 8:17 AM RESP THER Severe aortic stenosis EXTENDED HOLTER Routine 07/24/2023 Complete left bundle branch block GLUCOSE METER Routine 07/21/2023 9:43 AM RESP THER SCAN-CARDIAC REHABILITATION 07/21/2023 9:39 AM RESP THER GLUCOSE METER Routine 07/20/2023 10:26 AM RESP THER GLUCOSE METER Routine 07/20/2023 10:02 AM RESP THER SCAN-CARDIAC REHABILITATION 07/20/2023 9:57 AM RESP THER SCAN CORRESP-EKG RESULTS 07/10/2023 3:27 PM RESP THER GLUCOSE METER Timed 07/06/2023 12:13 PM RESP THER US ARTERIAL LOWER EXTREMITY PSEUDOANEURYSM LEFT SHEN 07/06/2023 11:09 AM RESP THER SCAN-CARDIAC STRIP 07/06/2023 8: 05 AM RESP THER GLUCOSE METER Timed 07/06/2023 7:24 AM RESP THER PROTIME-INR STAT 07/06/2023 6:34 AM RESP THER HEMOGLOBIN STAT 07/06/2023 6:34 AM RESP THER SCAN-CARDIAC STRIP 07/06/2023 5: 40 AM RESP THER XR CHEST 1 VIEW PORTABLE STAT 07/01/2023 9:16 PM RESP THER US ARTERIAL LOWER EXTREMITY PSEUDOANEURYSM LEFT STAT 07/01/2023 8:20 PM RESP THER LACTATE SCREEN VENOUS ISTAT W QUEEN Timed 07/01/2023 7:50 PM RESP THER TYPE & SCREEN STAT 07/01/2023 7:41 PM RESP THER TROPONIN T (HS) ONE TIME Timed 07/01/2023 7:41 PM RESP THER PROTIME-INR STAT 07/01/2023 7:41 PM RESP THER EXTRA TUBE QUEEN ON ICE STAT 07/01/2023 7:40 PM RESP THER ISTAT LACTATE SCREEN VENOUS STAT 07/01/2023 7:40 PM RESP THER BASIC METABOLIC PANEL STAT 07/01/2023 6:47 PM RESP THER TROPONIN T (HS) ACUTE W/2HR REFLEX STAT 07/01/2023 6:47 PM RESP THER PRO-BNP STAT 07/01/2023 6:47 PM RESP THER CBC W PLT NO DIFF STAT 07/01/2023 6:4 6 PM RESP THER EKG 12 LEAD STAT 07/01/2023 6:28 PM RESP THER GLUCOSE METER Timed 06/30/2023 10:57 AM RESP THER SCAN-CARDIAC STRIP 06/30/2023 10:36 AM RESP THER MAGNESIUM Early AM 06/30/2023 8:00 AM RESP THER BASIC METABOLIC PANEL Early AM 06/30/2023 8:00 AM RESP THER CBC W PLT NO DIFF Early AM 06/30/2023 7:5 9 AM RESP THER GLUCOSE METER Timed 06/30/2023 7:31 AM RESP THER EKG 12 LEAD SHEN 06/30/2023 6:22 AM RESP THER SCAN-CARDIAC STRIP 06/30/2023 4: 01 AM RESP THER GLUCOSE METER Timed 06/29/2023 9:40 PM RESP THER HEMOGLOBIN Today 06/29/2023 5:52 PM RESP THER GLUCOSE METER Timed 06/29/2023 5:44 PM RESP THER GLUCOSE METER Timed 06/29/2023 4:46 PM RESP THER SCAN-CARDIAC STRIP 06/29/2023 3: 55 PM RESP THER ECHO TTE LIMITED WO CONTRAST W COLOR W LTD DOPPLER Routine 06/29/2023 3:54 PM RESP THER EKG 12 LEAD STAT 06/29/2023 2:11 PM RESP THER HCHG ACTIVATED CLOTTING TM CV Timed 06/29/2023 1:26 PM RESP THER HEMOGLOBIN STAT 06/29/2023 1:19 PM RESP THER GLUCOSE METER Timed 06/29/2023 1:04 PM RESP THER XR PELVIS 1 VIEW PORTABLE Routine 06/29/2023 12:07 PM RESP THER TRANSFUSE RBC (NURSE COMMUNICATION ORDER) STAT 06/29/2023 11:32 AM RESP THER COMPREHENSIVE BLOOD GAS ARTERIAL Timed 06/29/2023 11:22 AM RESP THER RBC W/O TYPE & SCREEN STAT 06/29/2023 11:11 AM RESP THER RED BLOOD CELLS EA UNIT STAT 06/29/2023 11:09 AM RESP THER RED BLOOD CELLS EA UNIT STAT 06/29/2023 11:09 AM RESP THER ENDOTRACHEAL TUBE Routine 06/29/2023 10:10 AM RESP THER ENDOTRACHEAL TUBE Routine 06/29/2023 10:10 AM RESP THER ENDOTRACHEAL TUBE Routine 06/29/2023 10:10 AM RESP THER ENDOTRACHEAL TUBE Routine 06/29/2023 10:10 AM RESP THER CUTDOWN FEMORAL ARTERY Class A Emergency 06/29/2023 9:44 AM RESP THER Perclose failure HCHG ACTIVATED CLOTTING TM CV Timed 06/29/2023 9:05 AM RESP THER CVL TAVR Routine 06/29/2023 8:49 AM RESP THER RBC W/O TYPE & SCREEN STAT 06/29/2023 7:38 AM RESP THER RED BLOOD CELLS EA UNIT STAT 06/29/2023 7:35 AM RESP THER RED BLOOD CELLS EA UNIT STAT 06/29/2023 7:35 AM RESP THER TYPE & SCREEN Preop 06/29/2023 6:20 AM RESP THER PROTIME-INR STAT 06/29/2023 6:20 AM RESP THER GLUCOSE, FASTING Preop 06/29/2023 6:20 AM RESP THER SCAN-CARDIAC STRIP 06/29/2023 12:00 AM RESP THER EKG 12 LEAD Routine 06/23/2023 9:43 AM RESP THER Aortic valve stenosis, etiology of cardiac valve disease unspecified TRIMMER PRESS CLIPPINGS QUESTION TEST Routine 06/23/2023 9:42 AM RESP THER Pre-op testing TYPE & SCREEN Routine 06/23/2023 9:42 AM RESP THER Pre-op testing PROTIME-INR Routine 06/23/2023 9:42 AM RESP THER Pre-op testing ALBUMIN Routine 06/23/2023 9:42 AM RESP THER Pre-op testing CBC W PLT NO DIFF Routine 06/23/2023 9:4 2 AM RESP THER Pre-op testing BASIC METABOLIC PANEL Routine 06/23/2023 9:42 AM RESP THER Pre-op testing CTA CHEST ABD PELVIS TAVR - DUAL READ Routine 05/16/2023 2:46 PM RESP THER Severe aortic stenosis CREATININE,ISTAT Routine 05/16/2023 2:23 PM RESP THER HEMATOCRIT/HGB,ISTAT Routine 05/16/2023 2:18 PM RESP THER from Last 3 Months Results * (ABNORMAL) GLUCOSE METER (07/31/2023 10:46 AM RESP THER) Only the most recent of14 resultswithin the time period is included. GLUCOSE METER 171(H) 65 - 100 mg/dL 07/31/2023 10:47 AM RESP THER [facility] Blood BLOOD SPECIMEN / Unknown 07/31/2023 10:46 AM RESP THER 07/31/2023 10:47 AM RESP THER Radha Hernandez MD CHEMISTRY [facility] [address] [place] [address] * SCAN-CARDIAC REHABILITATION (07/31/2023 9:40 AM RESP THER) Only the most recent of5 resultswithin the time period is included. Scanner OTHER * EKG 12 LEAD (07/28/2023 1:39 PM RESP THER) Only the most recent of5 resultswithin the time period is included. Interpretation Normal sinus rhythm Left bundle branch block Abnormal ECG Ventricular Rate 88 BPM Atrial Rate 88 BPM P-R Interval 182 ms QRS Duration 130 ms QT 398 ms QTc 481 ms P [place] 86 degrees R [place] 67 degrees T [place] 100 degrees 07/28/2023 1:39 PM RESP THER 07/29/2023 11:27 AM RESP THER Leon Broussard COP BREAKER EKG ORD * (ABNORMAL) CBC W PLT NO DIFF (07/28/2023 1:35 PM [facility]) Only the most recent of4 resultswithin the time period is included. WHITE BLOOD COUNT 8.7 4.5 - 11.0 thou/cu mm 07/28/2023 2:07 PM [facility] RED BLOOD COUNT 3.91(L) 4.30 - 5.90 mil/cu mm 07/28/2023 2:07 PM [facility] HEMOGLOBIN 10.4(L) 13.5 - 17.5 g/dL 07/28/2023 2:07 PM [facility] HEMATOCRIT 32.6(L) 37.0 - 53.0 % 07/28/2023 2:07 PM [facility] MCV 83 80 - 100 fL 07/28/2023 2:07 PM [facility] MCH 26.6 26.0 - 34.0 pg 07/28/2023 2:07 PM [facility] MCHC 31.9(L) 32.0 - 36.0 g/dL 07/28/2023 2:07 PM [facility] RDW 13.5 11.5 - 15.5 % 07/28/2023 2:07 PM [facility] PLATELET COUNT 374 140 - 440 thou/cu mm 07/28/2023 2:07 PM [facility] MPV 9.6 6.5 - 11.0 fL 07/28/2023 2:07 PM [facility] NRBC 0.0 % 07/28/2023 2:07 PM [facility] ABS NRBC 0.0 thou /cu mm 07/28/2023 2:07 PM [facility] Blood BLOOD SPECIMEN / Unknown Venipuncture / Unknown 07/28/2023 1:35 PM [facility] 07/28/2023 1:57 PM [facility] 07/28/2023 2:07 PM RESP THER This procedure was originally ordered at [facility]. Leon Broussard NP HEMATOLOGY [facility] [address] [place] [address], * (ABNORMAL) BASIC METABOLIC PANEL (07/28/2023 1:35 PM RESP THER) Only the most recent of4 resultswithin the time period is included. SODIUM 139 136 - 145 mmol/L 07/28/2023 2:33 PM [facility] POTASSIUM 4.6 3.5 - 5.1 mmol/L 07/28/2023 2:33 PM [facility] CHLORIDE 102 98 - 107 mmol/L 07/28/2023 2:33 PM [facility] CO2,TOTAL 25 22 - 29 mmol/L 07/28/2023 2:33 PM [facility] ANION GAP 12 5 - 18 07/28/2023 2:33 PM [facility] GLUCOSE 129(H) 70 - 99 mg/dL 07/28/2023 2:33 PM [facility] CALCIUM 9.6 8.8 - 10.2 mg/dL 07/28/2023 2:33 PM [facility] BUN 17 8 - 23 mg/dL 07/28/2023 2:33 PM [facility] CREATININE 0.84 0.70 - 1.20 mg/dL 07/28/2023 2:33 PM [facility] BUN/CREAT RATIO 20 10 - 20 2:33 PM [facility] eGFR >90 >90 mL/min/1.7 3m2 07/28/2023 2:33 PM [facility] Comment:As of 2021, eG FR is calculated by the CKD-EPI creatinine equation without race adjustment. ??eGFR can be influenced by muscle mass, exercise, and diet. ??The reported eGFR is an estimation only and is only applicable if the renal function is stable. Blood BLOOD SPECIMEN / Unknown Venipuncture / Unknown 07/28/2023 1:35 PM RESP THER 07/28/2023 1:57 PM RESP THER Leon Broussard COP BREAKER CHEMISTRY [facility] [address] [place] [address], [place] * ECHO TTE LIMITED WO CONTRAST W COLOR W LTD DOPPLER (07/26/2023 8:17 AM RESP THER) Only the most recent of2 resultswithin the time period is included. AORTIC VALVE MEAN PG 7 mmHg LVEDD 3.8 cm EJECTION FRACTION 70 - 75% Anatomical Region Laterality Modality Ultrasound 07/26/2023 7:48 AM RESP THER Narrative 07/26/2023 8:59 AM RESP THER ECHOCARDIOGRAM VILMA Jaimei UGARTE ?Accession#: ?? [id number] : ?1955 68 years Study Date: ?? 07/26/2023 7:48:51 AM Gender: M ? BP: ? 130/70 mmHg Height: 170.00 cm ? BSA: ?1.89 m? ? ? Weight: 78.00 kg ?Tech: ? MHR ?Referring MD: LEON BROUSSARD Site: ? [facility] Reading Location: MOBILE OP Patient Location: [...] . This study was interpreted by an [facility] accredited facility. ??Final ?? Procedure Note Elizabeth Bryant, [facility] - 07/26/2023 ECHOCARDIOGRAM VILMA UGARTE : 1955 68 years Study Date: 07/26/2023 7:48:51 AM Gender: M BP: 130/70 mmHg Height: 170.00 cm BSA: 1.89 m? ? ? Weight: 78.00 kg Tech: [facility] Referring MD: LEON BROUSSARD Site: [facility] Reading Location: MOBILE OP Patient Location: [...] . This study was interpreted by an [facility] accredited facility. Final Leon Broussard NP ECHO ORD * EXTENDED HOLTER (07/24/2023) Leon Broussard NP CARDIAC SERVICES OR D * SCAN CORRESP-EKG RESULTS (07/10/2023 3:27 PM RESP THER) Narrative 07/10/2023 3:27 PM RESP THER Ordered by an unspecified provider. Other Clinical Staff OTHER * US ARTERIAL LOWER EXTREMITY PSEUDOANEURYSM LEFT (07/06/2023 11:09 AM RESP THER) Only the most recent of2 resultswithin the time period is included. Anatomical Region Laterality Modality LEG L Ultrasound 07/06/2023 11:3 6 AM RESP THER Impressions 07/06/2023 11:36 AM RESP THER 1. 2.7 cm hematoma in the left inguinal region. No sonographic evidence of pseudoaneurysm or arteriovenous fistula. Dictated by Marvin Cheema MD @ 07/06/2023 11:36:57 AM (Electronically Signed) Narrative 07/06/2023 11:36 AM RESP THER For Patients: ??As a result of the [...] [place] * SCAN-CARDIAC STRIP (07/06/2023 8:05 AM RESP THER) Scanner OTHER * (ABNORMAL) HEMOGLOBIN (07/06/2023 6:34 AM RESP THER) Only the most recent of3 resultswithin the time period is included. HEMOGLOBIN 8.5(L) 13.5 - 17.5 g/dL 07/06/2023 7:06 AM RESP THER [facility] MCV 85 80 - 100 fL 07/06/2023 7:06 AM RESP THER [facility] Blood BLOOD SPECIMEN / Unknown Venipuncture / Unknown 07/06/2023 6:34 AM RESP THER 07/06/2023 6:55 AM RESP THER Donald Lee MD [facility] [address] [place] [address], * (ABNORMAL) INR AM (07/06/2023 6:34 AM RESP THER) Only the most recent of4 resultswithin the time period is included. INR 1.6(H) <1.3 07/06/2023 7:06 AM RESP THER [facility] PROTIME 17.8(H) 10.3 - 12.3 sec 07/06/2023 7:06 AM RESP THER [facility] Blood BLOOD SPECIMEN / Unknown Venipuncture / Unknown 07/06/2023 6:34 AM RESP THER 07/06/2023 6:55 AM RESP THER Narrative [facility] - 07/06/2023 7:06 AM RESP THER ?Therapeutic Range 2.0-3.0 for most anticoagulated patients [...] is on UFH. Donald Lee MD HEMATOLOGY [facility] [address] [place] [address], * SCAN-CARDIAC STRIP (07/06/2023 5:40 AM RESP THER) Scanner OTHER * XR CHEST 1 VIEW PORTABLE (07/01/2023 9:16 PM RESP THER) Anatomical Region Laterality Modality HEART, THORAX, CHEST Digital Rad iography 07/01/2023 9:19 PM RESP THER Narrative 07/01/2023 9:19 PM RESP THER For Patients: ??As a result of the [...] VENOUS ISTAT W QUEEN (07/01/2023 7:50 PM RESP THER) LACTATE VENOUS SCREEN ISTAT <1.8 <=2.0 07/01/2023 7:54 PM RESP THER [facility] LACTATE SCREEN VENOUS POCT 1.5 <=2.0 07/01/2023 7:54 PM RESP THER [facility] Blood BLOOD SPECIMEN / Unknown 07/01/2023 7:50 PM RESP THER 07/01/2023 7:54 PM RESP THER Mari Ibarra MD LABORATORY [facility] [address] [place] [address], [place] * (ABNORMAL) TROPONIN T (HS) ONE TIME (07/01/2023 7:41 PM RESP THER) Pathologist [facility] TROPONIN T HS 74(H) 6-15 ng/L ng/L 07/01/2023 8:14 PM RESP THER [facility] Blood BLOOD SPECIMEN / Unknown Butterfly / Unknown 07/01/2023 7:41 PM RESP THER 07/01/2023 7:49 PM RESP THER Anw Ed Triage CHEMISTRY Performing Organization Address City/[facility]/ZIP Co de Phone Number [facility] [address] [address], [place] * TYPE AND SCREEN ONLY (07/01/2023 7:41 PM RESP THER) Only the most recent of3 resultswithin the time period is included. Pathologist [facility] ABORH A Rh Positive 07/01/2023 10:05 PM RESP THER [facility]OD B[facility] ANTIBODY SCREEN Negative Negative 07/01/2023 10:05 PM RESP THER [facility] B[facility]OD BANK SPECIMEN EXPIRATION DATE/TIME 07/04/23 23:59 07/01/2023 10:05 PM RESP THER [facility] BLOOD BANK Blood BLOOD SPECIMEN / Unknown Butterfly / Unknown 07/01/2023 7:41 PM RESP THER 07/01/2023 9:29 PM RESP THER Mari Ibarra MD BLOOD BANK Performing Organization Address City/[facility]/ZIP Co de Phone Number [facility] B[facility]OD BANK [address] [place] [address], [place] [phone] * EXTRA TUBE QUEEN ON ICE (07/01/2023 7:40 PM RESP THER) Blood BLOOD SPECIMEN / Unknown Butterfly / Unknown 07/01/2023 7:40 PM RESP THER 07/01/2023 7:51 PM RESP THER Mari Ibarra MD LABORATORY Performing Organization Address City/[facility]/ZIP Co de Phone Number [facility] [address] [place] [address], [place] * (ABNORMAL) TROPONIN T (HS) ACUTE W/2HR REFLEX (07/01/2023 6:47 PM RESP THER) TROPONIN T HS 71(H) 6-15 ng/L ng/L 07/01/2023 7:25 PM RESP THER [facility] Blood BLOOD SPECIMEN / Unknown Venipuncture / Unknown 07/01/2023 6:47 PM RESP THER 07/01/2023 6:52 PM RESP THER [facility] LABORATORY - 07/01/2023 7:25 PM RESP THER hs-cTnT (Elecsys Troponin T Gen 5) concentration [...] department patient population. Anw Ed Triage CHEMISTRY [facility] [address] [place] [address], * (ABNORMAL) PRO-BNP (07/01/2023 6:47 PM RESP THER) PRO-BNP 372(H) <125 pg/mL 07/01/2023 7:26 PM RESP THER [facility] [employer] [facility] Blood BLOOD SPECIMEN / Unknown Venipuncture / Unknown 07/01/2023 6:47 PM RESP THER 07/01/2023 6:52 PM RESP THER Narrative [facility] - 07/01/2023 7:26 PM RESP THER The following cut-points have been suggested for [...] failure. ? Anw Ed Triage SEND OUTS [facility] [address] [place] [address], * SCAN-CARDIAC STRIP (06/30/2023 10:36 AM RESP THER) Scanner OTHER * MAGNESIUM (06/30/2023 8:00 AM RESP THER) MAGNESIUM 1.6 1.6 - 2.4 mg/dL 06/30/2023 9:12 AM RESP THER [facility] Blood BLOOD SPECIMEN / Unknown Venipuncture / Unknown 06/30/2023 8:00 AM RESP THER 06/30/2023 8:07 AM RESP THER Bella Benavidez MD CHEMISTRY [facility] [address] [place] [address], [place] * SCAN-CARDIAC STRIP (06/30/2023 4:01 AM RESP THER) Scanner OTHER * SCAN-CARDIAC STRIP (06/29/2023 3:55 PM RESP THER) Scanner OTHER * (ABNORMAL) ACTIVATED CLOTTING TIME [id number] ACT (06/29/2023 1:26 PM RESP THER) Only the most recent of2 resultswithin the time period is included. ACTIVATED CLOTTING TIME, POCT 143(H) 74 - 125 sec 06/29/2023 3:03 PM RESP THER [facility] Blood BLOOD SPECIMEN / Unknown 06/29/2023 1:26 PM RESP THER 06/29/2023 3:03 PM RESP THER Bella Benavidez MD HEMATOLOGY [facility] [address] [place] [address], [place] * XR PELVIS 1 VIEW PORTABLE (06/29/2023 12:07 PM RESP THER) Anatomical Region Laterality Modality Pelvis Digital Radiogra phy 06/29/2023 12:3 5 PM RESP THER Narrative 06/29/2023 12:35 PM RESP THER For Patients: ??As a result of the [...] RBC (NURSE COMMUNICATION ORDER) (06/29/2023 11:32 AM RESP THER) Blood BLOOD SPECIMEN / Unknown Bella Benavidez MD NURSING BLOOD BANK * (ABNORMAL) COMPREHENSIVE BLOOD GAS ARTERIAL (06/29/2023 11:22 AM [facility]) PH, ARTERIAL 7.39 7.35 - 7.45 06/29/2023 11:22 AM [facility] [place] NTRNM LABORAT[facility] PCO2, ARTERIAL 41 35 - 48 mmHg 06/29/2023 11:22 AM [facility] NTRNM LABORATORY PO2, ARTERIAL 220(H) 83 - 108 mmHg 06/29/2023 11:22 AM [facility] N[facility] LABOR[facility] HCO3, ARTERIAL 25 21 - 28 mmol/L 06/29/2023 11:22 AM [facility] BASE EXCESS, ARTERIAL -0.2 -2.0 - 3.0 06/29/2023 11:22 AM [facility] O2 SATURATION, ARTERIAL 100(H) 94 - 98 % 06/29/2023 11:22 AM [facility] NTRNM LABORATORY PATIENT TEMPERATURE 37.0 Degrees C 06/29/2023 11:22 AM [facility] NTRNM LABORATORY COLLECTION SITE ARTERIAL LINE 06/29/2023 11:22 AM [facility] N[facility] LAB[facility]ORY HEMOGLOBIN,BLOO D GAS 8.2(L) 13.5 - 17.5 g/dL 06/29/2023 11:22 AM [facility] N[facility]NM LABORATORY SODIUM 134(L) 136 - 145 mmol/L 06/29/2023 11:22 AM [facility] LAB[facility] POTASSIUM 4.8 3.5 - 5.1 mmol/L 06/29/2023 11:22 AM [facility] N[facility] LABOR[facility] CHLORIDE 108(H) 98 - 107 mmol/L 06/29/2023 11:22 AM [facility] Blood BLOOD SPECIMEN / Unknown 06/29/2023 11:22 AM RESP THER 06/29/2023 11:23 AM [facility] Bella Benavidez MD CHEMISTRY Performing Organization Address City/State/[facility] Co de Phone Number [facility] [address] [place] [address], [place] * RBC W/O TYPE & SCREEN (06/29/2023 11:11 AM RESP THER) Only the most recent of2 resultswithin the time period is included. QUANTITY 2 06/29/2023 11:11 AM RESP THER [facility] BLOOD BANK Blood BLOOD SPECIMEN / Unknown 06/29/2023 11:09 AM RESP THER Ahmet Levy MD BLOOD BANK Performing Organization Address [facility] de Phone Number [facility] [employer]-CENTRAL LAB BLOOD BANK [address] [place] [address], [place] [phone] * RED BLOOD CELLS EA UNIT (06/29/2023 11:09 AM RESP THER) Only the most recent of4 resultswithin the time period is included. CROSSMATCH Compatible Compatible [facility] [employer]-CENTRAL LAB BLOOD BANK PRODUCT BLOOD TYPE A Rh Positive [facility] [employer]-CENTRAL LAB BLOOD BANK PRODUCT ID NUMBER [id number] [facility] LAB BLOOD BANK PRODUCT STATUS /Relea sed [facility] [employer]-CENTRAL LAB BLOOD BANK PRODUCT DESCRIPTION RBC -1 LR [facility] [employer]-CENTRAL LAB BLOOD BANK PRODUCT CODE [id number] [facility] BLOOD B[facility] Ahmet Levy MD BLOOD BANK Performing Organization Address [facility] Co de Phone Number [facility]CENTRAL LAB BLOOD BANK [address] [place] [address], [place] [phone] * HCHG TUBE PR1, HCHG INSTRUMENT DISP PR10, HCHG STYLET PR1, HCHG MOUTHPIECE PR1 (06/29/2023 10:10 AMCST) Narrative Carlos Briggs CRNA - 06/29/2023 10:10 AM RESP THER Carlos Briggs CRNA ? 06/29/2023 10:11 AM [...] ORDERABLES * CVL TAVR (06/29/2023 8:49 AM RESP THER) Anatomical Region Laterality Modality X-Ray Angiograph y, X-Ray Angiography 06/29/2023 8:49 AM RESP THER Narrative Transcriptions Bella Benavidez MD - 06/29/2023 11:08 AM CST [facility] Cardiac Catheterization Report Name: VILMA UGARTE Event Date: 06/29/2023 08:49 Excell[employer] ID #: [id number] BASIM #: [id number] Diagnostic Physician: BELLA BENAVIDEZ [facility] Interventional Physician: BELLA BENAVIDEZ [facility] Referring Physician: Date: 1955 Gender: Male [...] ? LV Pressure = 165/15. Consent & [place] Protocol The risks, benefits, and alternatives of the procedure were discussed withthe patient and written informed consent was obtained. [place] protocol was followed. TIME OUT conducted just prior tostarting procedure confirmed patient identity, site/side, procedure,patient position, and availability of correct equipment and implants (ifapplicable). Staff Name Title Jony Tan RN Nurse Neelam Olguin RN Nurse Gabriela Delvalle RTR Monitor Vasiliy Herrera PANEL INSTALLER Real Estate Representative [facility], Vera CVT Real Estate Representative [facility], Junior Fellow Leon Broussard NP Physician Fishing Reel Assembler BELLA BENAVIDEZ Sueding Machine Operator AHMET LEVY Vascular Surgeon Rachael Serna [...] Mellina RN 09:42 Versed 0.5 mg IV Bella Benavidez Mellina RN 09:42 Fentanyl 25 mcg IV [...] healthcare professional providing the sedation ends personal onqoqrdmkchokj-zd-omag time with the patient. The medications listed above were verbally ordered by me and read back tome as documented above. Refer to the procedure log report for additional case details. electronically signed on 06/29/2023 11:08:03 AM with status of Final Bella Benavidez MD [facility] [address] [place] [id number] [place] [address] (p) (f) Bella Benavidez MD CV IMAGING * (ABNORMAL) Glucose, Fasting (06/29/2023 6:20 AM RESP THER) GLUCOSE 174(H) 70 - 99 mg/dL 06/29/2023 6:58 AM RESP THER [facility] Blood BLOOD SPECIMEN / Unknown Venipuncture / Unknown 06/29/2023 6:20 AM RESP THER 06/29/2023 6:30 AM RESP THER Leon Broussard COP BREAKER CHEMISTRY Performing Organization Address City/[facility]/ZIP Co de Phone Number [facility] [address] [place] [address], * SCAN-CARDIAC STRIP (06/29/2023 12:00 AM RESP THER) Narrative 06/29/2023 12:00 AM RESP THER Ordered by an unspecified provider. Other Clinical Staff OTHER * TRIMMER PRESS CLIPPINGS QUESTION TEST (06/23/2023 9:42 AM RESP THER) QABT Question Yes 06/23/2023 9:56 AM RESP THER [facility] Blood BLOOD SPECIMEN / Unknown Venipuncture / Unknown 06/23/2023 9:42 AM RESP THER 06/23/2023 9:50 AM RESP THER Bella Benavidez MD BLOOD BANK [facility] [address] [place] [address], [place] [phone] * ALBUMIN (06/23/2023 9:42 AM RESP THER) ALBUMIN 4.1 4.0 - 4.9 g/dL 06/23/2023 10:19 AM RESP THER [facility] Blood BLOOD SPECIMEN / Unknown Venipuncture / Unknown 06/23/2023 9:42 AM RESP THER 06/23/2023 9:50 AM RESP THER Bella Benavidez MD CHEMISTRY [facility] [address] [place] [address], [place] * CTA CHEST ABD PELVIS TAVR - DUAL READ (05/16/2023 2:46 PM RESP THER) Anatomical Region Laterality Modality CHEST, Abdomen, Pelvis Computed Tomography Impressions 05/18/2023 3:24 PM RESP THER 1. Please see separate dictation for all [...] PM (Electronic Signature) Narrative 05/18/2023 3:24 PM RESP THER Images from the original result were not [...] PATIENT: Results are automatically released to your [employer] ([employer]) account once available, in compliance with federal regulations. ?? This means that you may see your results before your provider has had a chance to review them. ??Please allow 2-3 business days for your provider to comment on the results. Cardiac Imaging Fellow: Monae Chamorro MD Reading Hebrew Professor: Donald Sánchez MD MPH [facility] 05/16/2023 For Patients: As a result [...] abdomen and pelvis was performed per [facility] protocol. Please see Cardiology dictation for details on technique. ?? 100 cc Omnipaque-350 intravenous contrast. ?? This exam is being performed in conjunction with the services provided by the [facility] ([facility]). CLINICAL HISTORY: Over-read of non-cardiovascular structures [...] MD CT * CREATININE,ISTAT (05/16/2023 2:23 PM RESP THER) CREATININE, POCT 0.60 0.57 - 1.11 mg/dL 05/16/2023 2:57 PM RESP THER [facility] eGFR >90 >90 mL/min/1.7 3m2 05/16/2023 2:57 PM RESP THER [facility] Comment:As of 2021, eG FR is calculated by the CKD-EPI creatinine equation without race adjustment. eGFR can be influenced by muscle mass, exercise, and diet. The reported eGFR is an estimation only and is only applicable if the renal function is stable. Blood BLOOD SPECIMEN / Unknown 05/16/2023 2:23 PM RESP THER 05/16/2023 2:57 PM RESP THER Bella Benavidez MD CHEMISTRY [facility] [address] [place] [address], * (ABNORMAL) HEMATOCRIT/HGB,ISTAT (05/16/2023 2:18 PM RESP THER) HEMATOCRIT, POCT 37.0 37.0 - 53.0 % 05/16/2023 2:57 PM RESP THER ALLOrca PharmaceuticalsTA TRAL LABORATORY HEMOGLOBIN, POCT 12.6(L) 13.5 - 17.5 g/dL 05/16/2023 2:57 PM RESP THER [facility] TRAL LABORATORY Blood BLOOD SPECIMEN / Unknown 05/16/2023 2:18 PM RESP THER 05/16/2023 2:57 PM RESP THER Bella Benavidez MD CHEMISTRY [facility] [address] [place] [address], from Last 3 Months Advance Directives Latest [...] 8:24 AM 12/16/2015 1:04 PM Care Teams Hospital Account Manager Relationship Specialty Start Date End Date Emely Henson PA-C [address] [place] [address] PCP - General Emergency Medicine 04/20/23 Paul Soler MD [address] [place] [address] Pulmonology Pulmonary Medicine 09/30/22
--- OUTSIDE RECORDS SUMMARY | 2023-08-02 06:14 | XMS_ITS | Continuity of Care Document ---
Author Name Unknown Organization Z [facility] Address [address] [place] [address] Phone Care Team Providers Care Cotton Acreage Measurer Name Role Phone Sumit Castillo MD Unavailable [...] Date Provider Providers Copied on Encounter [facility], [address], [place], [address], [place] tel:[phone] [facility] - [place] No Information 8 Jonathan Arana. [facility], [address], [place], [place], [id number] , [place]. [phone] Office/outpat ient visit,est, low Z [facility], [address], [place], [address], [place] tel:[phone] [facility] - [place] No Information Apr-1 0-200 8 Mehbod Amir. [facility], [address] [place] [address] [address], [place], [place], [id number] , [place]. tel:[phone] Referring Provider: Mckinley Cardona, [facility], [place], [address]. tel:[phone] Office/outpat ient visit,est, low [facility] [place], [address] [place], [place] [address], [place], [place], [facility], [place] tel:[phone] [facility] - [place] No Information Jan-0 9-200 7 Mehbod Amir. [facility] [place], [address] [place] [address] [address], [place], [place], [id number] , [place]. [phone] Referring Provider: Mckinley Cardona, [facility] Yadira [facility], [place], [address]. tel:[phone] Office/outpat ient visit,est, low [facility], [address] [place], [place] [address]ite [facility], [place], [address], [place] tel:[phone] [facility] No Information Bong-2 8-200 7 Mehbod Amir. [facility], [address], [place], [place], [id number] , [place]. [phone] Referring Provider: Mckinley Cardona, [facility] Yadira [facility], [place], [address]. tel:[phone] [facility], [address] [place], [place] [address], [place], [place], [facility] [place], [place] tel:[phone] [facility] - [place] No Information May-1 0-200 7 Mehbod Amir. [facility], [address], [place], [place], [id number] , [place]. tel:[phone] Referring Provider: Mckinley Cardona [facility], [place], [address]. tel:[phone] Z [facility], [address] [place], [place] [address], [place], [address], [place] tel:[phone] [facility] No Information 1200 7 Mehbod Amir. [facility], [address], [place], [place], [id number] , [place]. tel:[phone] Referring Provider: [facility], [place], [address]. tel:[phone] Office consultation, moderate Z [facility], [address] [place] [address] [address], [place], [address], [place] tel:[phone] [facility] [place] No Information 200 6 Mehbod Amir. [facility], [address], [place], [place], [id number] , [place]. tel:[phone] Referring Provider: Mckinley Cardona [facility] Yadira [facility], [place], [address]. tel:[phone] Family History Family Member Type Diagnosis Age At Onset No Information Payers Payer name Insurance type Covered democrat ID Buck avilajaylin(s) [employer] AM [id number] [employer] [id number] Social History Type Description Quantity Date Captured [...]
== END 2023-08-01 09:44 | disposition home or self-care (01) ==
LOC: NFLDREF 08-02 06:13
PROVIDERS: PCP Physician Assistant Medical; Referring Provider Physician Assistant Medical; Visit Provider Physician Assistant Medical
DX: Z51.81 Encounter for therapeutic drug level monitoring (principal); Z79.01 Long term (current) use of anticoagulants
CPT/HCPCS: 85610

== ENCOUNTER 2023-08-15 10:04 | Outpatient (CLI) | payer MEDICARE, BC, SELFPAY | END 2023-08-15 10:05 | disposition home or self-care (01) | LOC: NFLDREF 08-28 18:44 | PROVIDERS: PCP Physician Assistant Medical; Referring Provider Physician Assistant Medical; Visit Provider Physician Assistant Medical | DX: Z51.81 Encounter for therapeutic drug level monitoring (principal); Z79.01 Long term (current) use of anticoagulants | CPT/HCPCS: 85610 ==

== ENCOUNTER 2023-08-25 13:16 | Outpatient (CLI) | payer MEDICARE, BC, SELFPAY ==
--- NOTE | 2023-08-25 14:00 | CT_ITS ---
Patient: VILMA DODSON Facility:?[facility] Patient ID:?[id number] Site Patient ID:?[id number] Site :?[id number] Study:?CT-Abdomen/Pelvis W/ 95CC ISOVUE 370-08/25/2023 2:38:07 PM Ordering Physician:COLIN Final Report: Indication: Disease of pancreas Technique: CT through the abdomen and pelvis following 95 mL Isovue 370 IV contrast in arterial and 40 and 70 second venous delayed phases Comparison: CTA abdomen pelvis dated 07/05/2023 Findings: Lower chest: No acute abnormality appreciated. Hepatobiliary: No significant parenchymal abnormality is appreciated. Spleen: Area of hypoenhancement within the mid spleen, which appears to persist on all phases and is concerning for splenic infarct. Pancreas: There is a large heterogeneous appearance to the pancreatic tail with apparent dilation of the pancreatic duct in communication with a large fluid collection. The fluid collection involves the adjacent gastric body and spleen with loss of adjacent fat planes. The collection measures 10.5 by 9.3 centimeters. There is a focal calcification associated with this mass. No discrete soft tissue lesion is appreciated. Adrenal glands: No acute abnormality appreciated. Kidneys: Multiple indeterminate density foci are noted in the bilateral kidneys, suboptimally evaluated due to the absence of a noncontrast phase. Bowel: Diverticulosis. No obstruction. Absence of fat planes and mass effect on the gastric body as described above. No focal perienteric or pericolonic stranding is appreciated. The appendix is visualized and appears unremarkable. Vascular: No acute abnormality appreciated. Calcified atherosclerotic plaque. Question splenic vascular invasion. Lymph nodes: Prominent upper mesenteric nodes. Increased left inguinal lymphadenopathy. Peritoneum: No free air. No free fluid. : Heterogeneous fluid/lesion in the left inguinal canal, unchanged. Soft tissues: Postoperative changes to the left groin. Bones: No acute fracture. No lytic or blastic lesion. Lumbar fusion. Impression: 1. Significant irregularity of the pancreatic tail noted. There is ductal dilation which appears to communicate with a large fluid collection, possibly a cystic neoplasm or a pseudocyst measuring up to 10.5 centimeters. This lesion effaces fat planes with the spleen and stomach and causes significant mass effect on the gastric body. Findings are highly concerning for either cystic neoplasm with local invasion or pseudocyst with complications. 2. Focal absence of hypoenhancement within the spleen concerning for splenic infarct. There is questionable involvement of the adjacent splenic vasculature near the pancreatic lesion. 3. Multiple indeterminate density and possibly enhancing renal lesions are noted bilaterally, poorly evaluated due to contrast bolus timing for this pancreatic protocol examination. Recommend renal protocol MRI or CT for further evaluation. 4. Increased inguinal lymphadenopathy. Please note that all CT scans at this facility use dose modulation, iterative reconstruction, and/or weight-based dosing when appropriate to reduce radiation dose to as low as reasonably achievable. Dictated by Tao Thompson MD @ 08/26/2023 1:45:56 PM Signed by:?Tao Thompson MD @08/26/2023 1:45:56 PM (Electronic Signature)
[2023-08-25 14:09] LABS: Creatinine* 0.6 mg/dL (0.5-1.5); Estimated Glomerular Filt Rate 105 ml/min
== END 2023-08-25 13:17 | disposition home or self-care (01) ==
LOC: CT 13:17
PROVIDERS: PCP Physician Assistant Medical; Visit Provider Physician Assistant Medical
DX: K86.9 Disease of pancreas, unspecified (principal); N28.9 Disorder of kidney and ureter, unspecified
CPT/HCPCS: 36415; 74160; 82565; Q9967

== ENCOUNTER 2023-08-29 09:20 | Outpatient (CLI) | payer MEDICARE, BC, SELFPAY | END 2023-08-29 09:21 | disposition home or self-care (01) | LOC: NFLDREF 08-30 07:13 | PROVIDERS: PCP Physician Assistant Medical; Referring Provider Physician Assistant Medical; Visit Provider Physician Assistant Medical | DX: D64.9 Anemia, unspecified (principal); E11.9 Type 2 diabetes mellitus without complications; K86.9 Disease of pancreas, unspecified; R63.4 Abnormal weight loss; Z51.81 Encounter for therapeutic drug level monitoring; Z79.01 Long term (current) use of anticoagulants | CPT/HCPCS: 82607; 82746; 83540; 83550; 86301 ==

== ENCOUNTER 2023-09-22 10:20 | Outpatient (CLI) | payer MEDICARE, BC, SELFPAY ==
--- OUTSIDE RECORDS SUMMARY | 2023-09-22 10:24 | XMS_ITS | Continuity of Care Document ---
Author Name Unknown Organization Z [facility] Address [address] [place] [address] Phone Care Team Providers Care Dump Motor Operator Name Role Phone Sumit Castillo MD Unavailable [...] Date Provider Providers Copied on Encounter Z [facility], [address], [place], [address], [place] tel:[phone] [facility] [place] No Information 8 Jonathan Arana. [facility], [address], [place], [place], [id number] , [place]. [phone] Office/outpat ient visit,est, low Z [facility], [address], [place], [address], [place] tel:[phone] [facility] [place] No Information Apr-1 0-200 8 Mehbod Amir. [facility], [address] [place] [address] [address], [place], [place], [id number] , [place]. tel:[phone] Referring Provider: Mckinley Cardona, [facility], [place], [address]. tel:[phone] Office/outpat ient visit,est, low Z [facility], [address] [place], [place] [address], [place], [place], [facility], [place] tel:[phone] [facility] [place] No Information Jan-0 9-200 7 Mehbod Amir. [facility], [address] [place] [address] [address], [place], [place], [id number] , [place]. [phone] Referring Provider: Mckinley Cardona, [facility], [place], [address]. tel:[phone] Office/outpat ient visit,est, low Z [facility], [address] [place], [place] [address]ite [facility], [place], [address], [place] tel:[phone] [facility] No Information Bong-2 8-200 7 Mehbod Amir. [facility], [address], [place], [place], [id number] , [place]. [phone] Referring Provider: Mckinley Cardona, [facility], [place], [address]. tel:[phone] Z [facility], [address] [place], [place] [address], [place], [place], [facility], [place] tel:[phone] [facility] [place] No Information May-1 0-200 7 Mehbod Amir. [facility], [address], [place], [place], [id number] , [place]. tel:[phone] Referring Provider: Mckinley Cardona [facility], [place], [address]. tel:[phone] Z [facility], [address] [place], [place] [address], [place], [address], [place] tel:[phone] [facility] No Information 1200 7 Mehbod Amir. [facility], [address], [place], [place], [id number] , [place]. tel:[phone] Ref[facility]: [facility], [place], [address]. tel:[phone] Office consultation, moderate Z [facility], [address] [place] [address] [address], [place], [address], [place] tel:[phone] [facility] [place] No Information 200 6 Mehbod Amir. [facility], [address], [place], [place], [id number] , [place]. tel:[phone] Referring Provider: Mckinley Cardona [facility], [place], [address]. tel:[phone] Family History Family Member Type Diagnosis Age At Onset No Information Payers Payer name Insurance type Covered constitution party ID Buck avilajaylin(s) [employer] AM [id number] [employer] [id number] Social History Type Description Quantity Date Captured [...]
--- OUTSIDE RECORDS SUMMARY | 2023-09-22 10:24 | XMS_ITS | Clinical Summary ---
Author Name Unknown Organization [email or web address] [facility] Address [place], [place] [address] Care Team Providers Care Talent Acquisition Lead Name Role Phone Emely Henson PA-C Primary Care Provider + [phone] Paul Soler MD Unavailable [phone] Allergies Active Allergy Reactions Criticality Noted Date Comments Prednisone Arrhythmia 02/20/2010 Patient goes into A-fib after taking Medications Medication Sig Dispensed Refills Start Date End Date Status (u) ACCUCHECK COMFORT CURVE STRIPS use as directed 100 1yr 5 Active nitroglycerin (NITROSTAT) 0.4 mg sublingual tabletIndications :High coronary artery calcium score Place 2 tablets under the tongue every 5 minutes if needed for Chest Pain or Other (Specify) (up to 3 doses). 1 Bottle 1 6 Active CPAPIndications:O SA (obstructive sleep apnea) CPAP machine for home [...] Active albuterol HFA (ProAir HFA) 90 mcg/actuation inhalerIndication s:Panlobular emphysema (HC) Inhale 1-2 Puffs by mouth every 6 hours if needed for Shortness of Breath 2nd choice or Wheezing 1st choice. 1 Each 1 2 Active albuterol-ipratro pium (DUONEB) (2.5-0.5 mg) in 3 mL NEBULIZATION solutionIndicatio ns:Panlobular emphysema (HC) Inhale 3 mL via a nebulizer every 6 hours if needed for Shortness of Breath 2nd choice or Wheezing 1st choice. Use 2-4 times per day. 75 mL 2 Active losartan (COZAAR) 100 mg tabletIndications :Essential hypertension Take 1 Tablet (100 mg) by mouth once daily. 90 Tablet 3 Active atorvastatin (LIPITOR) 40 mg tabletIndications :Type 2 diabetes mellitus without complication, without long-term current use of insulin (HC),Dyslipidemia Take 1 Tablet (40 mg) by mouth at bedtime. 90 Tablet 3 3 Active warfarin (COUMADIN) 7.5 mg tabletIndications :Paroxysmal atrial fibrillation (HC),Anticoagulat ion monitoring, INR range 2-3 Take by mouth 3.75 mg every Sun, Tue, Marcela; 7.5 mg all other days in the evening OR as directed 3 Active Additional Information Patient taking differently: Take by mouth 3.75 mg every Sun, Tue, Marcela; 7.5 mg all other days in the evening, Informant: Patient's Recall, Reported on 07/06/2023 montelukast (SINGULAIR) 10 mg tabletIndications :Shortness of breath,Cough, unspecified type,Bronchioliti s Take 1 Tablet (10 mg) by mouth at bedtime. 30 Tablet 11 3 Active glipiZIDE extended-release (GLUCOTROL XL) 10 mg Extended-Release tabletIndications :Type 2 diabetes mellitus without complication, without long-term current use of insulin (HC) Take 1 Tablet (10 mg) by mouth once daily before a meal. 90 Tablet 1 3 Active gabapentin (NEURONTIN) 600 mg tabletIndications :Diabetic peripheral neuropathy (HC),Other insomnia Take 1 Tablet (600 mg) by mouth at bedtime 90 Tablet 1 3 Active amLODIPine (NORVASC) 10 mg tabletIndications :Essential hypertension TAKE ONE TABLET BY MOUTH DAILY 90 Tablet 3 Active citalopram (CELEXA) 20 mg tablet Take 20 mg by mouth every morning. 3 Active magnesium 250 mg tab Take 250 mg by mouth once daily. Active diphenhydrAMINE (BenadryL) 25 mg capsule Take 25 mg by mouth at bedtime if needed. Active POTASSIUM-99 ORAL Take 1 Tablet by mouth once daily. Active metFORMIN (GLUCOPHAGE) 1,000 mg tabletIndications :Type 2 diabetes mellitus without complication, without long-term current use of insulin (HC) Take 1 Tablet (1,000 mg) by mouth two times daily with meals. 60 Tablet 4 Active aspirin chewable 81 mg chewable tabletIndications :PAD (peripheral artery disease) (HC) Chew 1 Tablet (81 mg) by mouth once daily with a meal. 4 Active acetaminophen (TYLENOL EXTRA STRGTH) 500 mg tablet Take 1,000 mg by mouth once daily in the evening. Max acetaminophen dose: 4000mg in 24 hrs. Active mometasone-formot doug (Dulera) 200-5 mcg/actuation inhaler Inhale 2 Puffs by mouth 2 times daily if needed. Active triamcinolone 0.1 % ointment Apply topically to affected area(s) 3 times daily if needed. Active metoprolol tartrate (LOPRESSOR) 25 mg tabletIndications :Paroxysmal atrial fibrillation (HC) Take 0.5 Tablets (12.5 mg) by mouth two times daily. 90 Tablet 3 4 Active tamsulosin (FLOMAX) 0.4 mg capsuleIndication s:Lower urinary tract symptoms (LUTS) Take 1 Capsule (0.4 mg) by mouth once daily after a meal. 90 Capsule 4 Active tamsulosin (FLOMAX) 0.4 mg capsuleIndication s:Lower urinary tract symptoms (LUTS) Take 1 Capsule (0.4 mg) by mouth once daily after a meal. 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 04/19/2012 10/15/2013 Overview: Warfarin - started 10/2008; indicated for a fib CHADS2=2 (DM, HTN); goal INR 2.0- 3.0; Anticoagulation monitoring, INR range 2-3 11/20/2010 03/07/2023 Overview: Warfarin - started 10/2008; indicated for a fib CHADS2=2 (DM, HTN) Fever 02/20/2010 05/25/2022 long-term (current) use of anticoagulants 12/25/2008 11/20/2010 Overview: INR Goal Range: 2.0 - 3.0 Dyslipidemia 10/22/2008 02/20/2010 Chest pain 10/22/2008 05/25/2022 Sleep apnea syndrome 10/22/2008 019 Overview: Dx ~1997 On CPAP HYPERTENSION, ESSENTIAL NOS 12/04/2001 02/20/2010 DM, UNCOMPLICATED, TYPE II 05/15/2001 0 10/22/2008 Other psoriasis 05/25/2022 Unspecified sleep apnea 02/10 Type II or unspecified type diabetes mellitus without mention of complication, not stated as uncontrolled 11/01/2012 Overview: Diagnosed about 1996 Last Hgb A1c - 6.7 on 10/28/2011 Meds 04/30 - metformin, glipizide, pioglitazone, atorvastatin, losartan Encounters Date Type Department Care Team Description 09/20/2023 9:35 AM CDT - 09/20/2023 11:59 PM CDT Hospital Encounter [facility] [address] [place] [address] Radha Hernandez MD 09/20/2023 Travel 09/18/2023 9:34 AM CDT - 09/18/2023 11:59 PM CDT Hospital Encounter [facility] [address] [place] [address] Radha Hernandez MD 09/18/2023 Travel 09/15/2023 9:39 AM CDT - 09/15/2023 11:59 PM CDT Hospital Encounter [facility] [address] [place] [address] Radha Hernandez MD 09/15/2023 Travel 09/13/2023 9:32 AM CDT - 09/13/2023 11:59 PM CDT Hospital Encounter [facility] [address] [place] [address] Radha Hernandez MD 09/13/2023 Travel 09/11/2023 9:43 AM CDT - 09/11/2023 11:59 PM CDT Hospital Encounter [facility] [address] [place] [address] Radha Hernandez MD 09/11/[address] [place] [address] Dexter Lofton MD Refill Request (Tamsulosin) 09/11/2023 Travel 09/08/2023 9:31 AM CDT - 09/08/2023 11:59 PM CDT Hospital Encounter [facility] [address] [place] [address] Radha Hernandez MD 09/08/2023 Travel 09/06/2023 9:37 AM CDT - 09/06/2023 11:59 PM CDT Hospital Encounter [facility] [address] [place] [address] Radha Hernandez MD 09/06/2023 Telephone [facility] [address], [place] [address] Mark Finley MD Abstract (Plan of care ) 09/06/2023 Travel 09/04/2023 9:28 AM CDT - 09/04/2023 11:59 PM CDT Hospital Encounter [facility] [address] [place] [address] Radha Hernandez MD 09/04/2023 Travel 09/01/2023 9:33 AM CDT - 09/01/2023 11:59 PM CDT Hospital Encounter [facility] [address] [place] [address] Radha Hernandez MD 09/01/2023 Travel 08/30/2023 9:36 AM CDT - 08/30/2023 11:59 PM CDT Hospital Encounter [facility] [address] [place] [address] Radha Hernandez MD 08/30/2023 Telephone [facility] [address] [place] [address] [facility] Cancer Referral (Dx: Pancreatic lesion with abnormal weight loss for Dr. Finley) 08/30/2023 Travel 08/29/2023 Lab Requisition [facility] [phone] Emely Henson PA-C 08/28/2023 9:37 AM CDT - 08/28/2023 11:59 PM CDT Hospital Encounter [facility] [address] [place] [address] Radha Hernandez MD 08/28/2023 Travel 08/25/2023 9:37 AM CDT - 08/25/2023 11:59 PM CDT Hospital Encounter [facility] [address] [place] [address] Radha Hernandez MD 08/25/2023 Travel 08/23/2023 9:35 AM CDT - 08/23/2023 11:59 PM CDT Hospital Encounter [address] [address] Radha Hernandez MD 08/23/2023 Travel 08/21/2023 9:43 AM CDT - 08/21/2023 11:59 PM CDT Hospital Encounter [address] [address] Radha Hernandez MD 08/21/2023 Travel 08/18/2023 9:37 AM CONFERENCE RESERVATIONIST - 08/18/2023 11:59 PM CONFERENCE RESERVATIONIST Hospital Encounter [address] [address] Radha Hernandez MD 08/18/2023 Travel 08/16/2023 2:00 PM CONFERENCE RESERVATIONIST [place] [facility] [place] [address] [place] [address] Ahmet Levy MD CV Vascular Est (6 week follow up; s/p LEFT CUTDOWN FEMORAL ARTERY. U/S scheduled prior. SD 08/15/2023//PCP: Emely Henson PA-C/) 08/16/2023 12:46 PM CONFERENCE RESERVATIONIST - 08/16/2023 11:59 PM CONFERENCE RESERVATIONIST Hospital Encounter [facility] [address] [place] [address] Kadie Hendricks PA Garrity, Brian, R.T. (ARRT) PAD (peripheral artery disease) (HC) 08/16/2023 9:37 AM CONFERENCE RESERVATIONIST - 08/16/2023 12:45 PM CONFERENCE RESERVATIONIST Hospital Encounter [facility] [address] [place] [address] Radha Hernandez MD 08/16/2023 Travel 08/14/2023 9:41 AM CONFERENCE RESERVATIONIST - 08/14/2023 11:59 PM CONFERENCE RESERVATIONIST Hospital Encounter [facility] [address] [place] [address] Radha Hernandez MD 08/14/2023 Travel 08/11/2023 9:36 AM CONFERENCE RESERVATIONIST - 08/11/2023 11:59 PM CONFERENCE RESERVATIONIST Hospital Encounter [facility] [address] [place] [address] Radha Hernandez MD 08/11/2023 Travel 08/09/2023 9:44 AM CONFERENCE RESERVATIONIST - 08/09/2023 11:59 PM CONFERENCE RESERVATIONIST Hospital Encounter [facility] [address] [place] [address] Radha Hernandez MD 08/09/2023 Travel 08/07/2023 9:39 AM CONFERENCE RESERVATIONIST - 08/07/2023 11:59 PM CONFERENCE RESERVATIONIST Hospital Encounter [facility] [address] [place] [address] Radha Hernandez MD 08/07/2023 Travel 08/04/2023 12:00 PM CONFERENCE RESERVATIONIST Ancillary Procedure [facility] Kristi Bass [address] [place] [address] Dr [place] [address] 08/04/2023 9:37 AM CONFERENCE RESERVATIONIST - 08/04/2023 11:59 PM CONFERENCE RESERVATIONIST Hospital Encounter [facility] [address] [place] [address] Radha Hernandez MD 08/04/2023 Travel 08/02/2023 9:35 AM CONFERENCE RESERVATIONIST - 08/02/2023 11:59 PM CONFERENCE RESERVATIONIST Hospital Encounter [facility] [address] [place] [address] Radha Hernandez MD 08/02/2023 Travel 07/31/2023 9:36 AM CONFERENCE RESERVATIONIST - 07/31/2023 11:59 PM CONFERENCE RESERVATIONIST Hospital Encounter [facility] [address] [place] [address] Radha Hernandez MD 07/31/2023 Travel 07/28/2023 2:30 PM CONFERENCE RESERVATIONIST [place] [facility] [place] [address] [place] [address] Junior Castellanos MBBS CV Valve Est (INPERSON:VALVE EST: 30DAY S/P TAVR, LABS ECHO CT MORPH PRIOR, [facility]S [facility]KG[facility], LETTER GIVEN, HJK//PCP: Emely Henson PA-C) 07/28/2023 2:00 PM CONFERENCE RESERVATIONIST Orders [place] [facility] [place] [address] [place] [address] Lab 07/28/2023 9:41 AM CONFERENCE RESERVATIONIST - 07/28/2023 11:59 PM CONFERENCE RESERVATIONIST Hospital Encounter [facility] [address] [place] [address] Radha Hernandez MD 07/28/2023 Travel 07/26/2023 9:18 AM CONFERENCE RESERVATIONIST - 07/26/2023 11:59 PM CONFERENCE RESERVATIONIST Hospital Encounter [facility] [address] [place] [address] Radha Hernandez MD 07/26/2023 8:00 AM CONFERENCE RESERVATIONIST Ancillary Procedure [facility] [place] [facility] [id number] [place] [address] 07/26/2023 Travel 07/24/2023 Orders Only [facility] [address] [place] [address] Deanna Olivas 1 scan: (1-Ord) Final 07/21/2023 9:00 AM CONFERENCE RESERVATIONIST - 07/21/2023 11:59 PM CONFERENCE RESERVATIONIST Hospital Encounter [facility] [address] [place] [address] Radha Hernandez MD 07/20/2023 8:36 AM CONFERENCE RESERVATIONIST - 07/20/2023 11:59 PM CONFERENCE RESERVATIONIST Hospital Encounter [facility] [address] [place] [address] Junior Castellanos MBBS Severe aortic stenosis 07/20/2023 Travel 07/10/2023 Orders Only [facility] Staff, Other Clinical 1 scan: (1-Ord) 07/10/2023 07/06/2023 4:40 AM CONFERENCE RESERVATIONIST - 07/06/2023 2:05 PM CONFERENCE RESERVATIONIST Hospital Encounter [facility] [address] [address] [facility], MD Mart Olivas, Stevo Arana MD Discharge Disposition: Home Self Care 07/06/2023 Travel 07/01/2023 6:31 PM CONFERENCE RESERVATIONIST - 07/01/2023 10:57 PM CONFERENCE RESERVATIONIST Emergency [facility] Emergency Department [address] [place] [address] Mari Ibarra MD Fatigue, unspecified type (Primary Dx); Lightheadedness Discharge Disposition: Home Self Care 07/01/2023 Travel 06/29/2023 9:59 AM CONFERENCE RESERVATIONIST Anesthesia Event [facility] [address], [place] [address] Inna Molina MD 06/29/2023 9:15 AM CONFERENCE RESERVATIONIST - 06/29/2023 1:38 PM CONFERENCE RESERVATIONIST Surgery [facility] [address], [place] [address] Ahmet Levy MD LEFT CUTDOWN FEMORAL ARTERY; LEFT ENDARTERECTOMY; LEFT LOWER EXTREMITY ANGIOGRAM; ANGIOPLASTY 06/29/2023 5:54 AM CONFERENCE RESERVATIONIST - 06/30/2023 3:30 PM CONFERENCE RESERVATIONIST Hospital Encounter [facility] [address] [place] [address] Bella Benavidez MD Severe aortic stenosis (Primary Dx); Bicuspid aortic valve; Type 2 diabetes mellitus without complication, without long-term current use of insulin (HC); PAD (peripheral artery disease) (HC) Discharge Disposition: Home Self Care 06/29/2023 Travel 06/28/2023 Orders Only [facility] [address] [place] [address] Leon Broussard NP 1 scan: (1-Ord) CHART 06/23/2023 10:00 AM CONFERENCE RESERVATIONIST [place] [facility] [place] [address] [phone] Junior Castellanos MBBS CV Valve Est (VALVE EST:PRE-OP TAVR, LABS PRIOR,NEEDS EKG,KCCQ12, 5M WALK,LETTER SENT, TRACEK//PCP: Emely Henson PA-C/) 06/23/2023 9:30 AM CONFERENCE RESERVATIONIST Orders [place] [facility] [place] [address] [phone] Lab 06/23/2023 Telephone [facility] [address] [place] [phone] Paul Soler MD Results (CT results) 06/23/2023 Orders Only [facility] [place] [address] [phone] Junior Castellanos MBBS <No scans attached> 06/23/2023 Travel from Last 3 Months Immunizations Name Administration Dates Next Due COVID-19 vaccine (Moderna 100mcg/0.5mL) PF MDLonnie 08/19/2020,07/22/2020 COVID-19 vaccine (Pfizer-Bio NTech 30mcg/0.3mL) 12YO+ [...] Sign Reading Time Taken Comments Blood Pressure 134/78 08/16/2023 1:47 PM CONFERENCE RESERVATIONIST Pulse 77 08/16/2023 1:47 PM CONFERENCE RESERVATIONIST Temperature 36.8 ??C (98.2 ??F) 07/06/2023 8:10 AM CS T Respiratory Rate 15 07/20/2023 1:00 PM CONFERENCE RESERVATIONIST Oxygen Saturation 96% 08/16/2023 1:47 PM CONFERENCE RESERVATIONIST Inhaled Oxygen Concentration - - Weight 76.2 kg (168 lb) 07/28/2023 1:43 PM CONFERENCE RESERVATIONIST Height 170.2 cm (5' 7) 07/28/2023 1:43 PM CONFERENCE RESERVATIONIST Body Mass Index 26.31 07/28/2023 1:43 PM CONFERENCE RESERVATIONIST Plan of Treatment Upcoming Encounters Date Type Department Care Team (Latest Contact Info) Description 09/25/2023 10:00 AM CDT Appointment [facility] [address] [place] [address] 09/27/2023 10:00 AM CDT Appointment [address] [address] 09/29/2023 10:00 AM CDT Appointment [address] [address] 10/02/2023 10:00 AM CDT Appointment [address] [address] 10/04/2023 10:00 AM CDT Appointment [address] [address] 10/06/2023 10:00 AM CDT Appointment [address] [address] 10/09/2023 10:00 AM CDT Appointment [address] [address] 10/10/2023 8:55 AM CDT Hospital Encounter [facility] [address] [place] [address] [place] [address] [facility] [address] [place] [address] 10/10/2023 9:55 AM CDT - 10/10/2023 10:55 AM CDT Surgery [facility] [address] [place] [address] [place] [address] [place] [address] ENDOSCOPIC ULTRASOUND UPPER 10/11/2023 10:00 AM CDT Appointment [facility] [address] [place] [address] 10/13/2023 10:00 AM CDT Appointment [facility] [address] [place] [address] 10/23/2023 9:30 AM CDT Office Visit [facility] [address] [place] [address] Paul Soler MD [address] [place] [address] Scheduled Procedures Name Priority Associated Diagnoses Date/Ti sd ENDOSCOPIC ULTRASOUND UPPER Elective pancreas cyst 10/10/2023 9:55 AM CDT Goals Goal Patient Goal Type Associated Problems Recent Progress Patient-Stated? Author BLOOD PRESSURE - MAINTAINS BP less than 140/90 Blood Pressure No Arya Stone MD Medical Devices Implanted Type Area Negative Restorer Device Identifier Shelf Expiration Date Model / Serial / Lot [id number] e Canclls Crushed 60cc [] Implanted:Qty: 1 on 08/22/2006 at [facility] Explanted:at [facility] (Quantity not on file) Spine Allosource 05/17/2011 [id number]# / [id number] / [id number] e Canclls Crushed 30cc [[id number]] Implanted:Qty: 1 on 08/22/2006 at [facility] Explanted:at [facility] (Quantity not on file) Spine [employer]osource 11/16/2010 [id number]# / [id number] / Vesna Dayanara [id number] - [id number] Implanted:Qty: 6 on 08/22/2006 at [facility] Spine HOWMEDICA [id number]# / / Screw Polyaxial 6.5x45mm - [id number] Implanted:Qty: 6 on 08/22/2006 at [facility] Spine [employer] [id number]# / / Marin Dayanara Rad 70mm 108mm Radius - [id number] Implanted:Qty: 2 on 08/22/2006 at [facility] Spine [employer] [id number]# / / Wedge Tag Acufex 3.7mm - [id number] Implanted:Qty: 3 on 08/25/2011 at [facility] Left: Shoulder [employer] [id number]# / / [id number] Screw Cerv Ant 4x15mm [place] Translational Va Slf Drill - [id number] Implanted:Qty: 3 on 03/04/2022 by Donald Alba MD at [facility] N/A: Spine Medtronic Spine/Ortho [id number] / / Plate Cerv 1lvl 25mm [place] Vision Elite Ant - [id number] Implanted:Qty: 1 on 03/04/2022 by Donald Alba MD at [facility] N/A: Spine Medtronic Spine/Ortho [id number] / / [id number] e Matrix 1cc Nelson Plus Paste Dbm Implanted:Qty: 1 on 03/04/2022 by Donald Alba MD at [facility] Explanted:at [facility] (Quantity not on file) N/A: Spine Medtronic Spine/Ortho 10/12/2023 [id number] / [id number] / [id number] Spinal Graft Block Robert Implanted:Qty: 1 on 03/04/2022 by Donald Alba MD at [facility] Explanted:at [facility] (Quantity not on file) N/A: Spine Medtronic Spine/Ortho 02/24/2024 [id number] / [id number] / Screw Cerv Ant 4x13mm [place] [employer] Va Slf Drill - [id number] Implanted:Qty: 1 on 03/04/2022 by Donald Alba MD at [facility] N/A: Spine Medtronic Spine/Ortho [id number] / / Tissue Pericardium 0.8x8cm Photofix Bovine - [id number] Implanted:Qty: 1 on 06/29/2023 by Ahmet Levy MD at [facility] Left: Groin [employer]ife Inc 02/03/2025 [id number] / / [id number] Description:CryoLife PhotoFi x Decellularized Bovine Pericardium 0.8cm x 8cm; Lot Number [id number]; Reference Number [id number]; Implanted to the left groin by Dr. Levy on 06/29/2023 Procedures Procedure Name Priority Date/Time Associated Diagnosis Comments SCAN-CARDIAC REHABILITATION 09/20/2023 9:50 AM CDT SCAN-CARDIAC REHABILITATION 09/18/2023 9:41 AM CDT SCAN-CARDIAC REHABILITATION 09/15/2023 9:44 AM CDT SCAN-CARDIAC REHABILITATION 09/13/2023 9:43 AM CDT SCAN-CARDIAC REHABILITATION 09/11/2023 9:46 AM CDT SCAN-CARDIAC REHABILITATION 09/08/2023 9:42 AM CDT SCAN-CARDIAC REHABILITATION 09/06/2023 9:46 AM CDT SCAN-CARDIAC REHABILITATION 09/04/2023 9:36 AM CDT SCAN-CARDIAC REHABILITATION 09/01/2023 9:45 AM CDT SCAN-CARDIAC REHABILITATION 08/30/2023 9:43 AM CDT LAB TRACKING EVENT Routine 08/29/2023 9: 20 AM CDT PERIPHERAL BLD MORPHOLOGY Routine 08/29/2023 9:20 AM CDT SCAN-CARDIAC REHABILITATION 08/28/2023 9:45 AM CDT SCAN-CARDIAC REHABILITATION 08/25/2023 9:42 AM CDT SCAN-CARDIAC REHABILITATION 08/23/2023 9:43 AM CDT SCAN-CARDIAC REHABILITATION 08/23/2023 9:43 AM CDT SCAN-CARDIAC REHABILITATION 08/21/2023 9:42 AM CDT SCAN-CARDIAC REHABILITATION 08/18/2023 9:43 AM CONFERENCE RESERVATIONIST US ARTERIAL LOWER EXTREMITY W ARTEM LEFT Routine 08/16/2023 1:36 PM CONFERENCE RESERVATIONIST PAD (peripheral artery disease) (HC) SCAN-CARDIAC REHABILITATION 08/16/2023 9:51 AM CONFERENCE RESERVATIONIST SCAN-CARDIAC REHABILITATION 08/16/2023 9:51 AM CONFERENCE RESERVATIONIST SCAN-CARDIAC REHABILITATION 08/14/2023 9:47 AM CONFERENCE RESERVATIONIST SCAN-CARDIAC REHABILITATION 08/11/2023 9:42 AM CONFERENCE RESERVATIONIST SCAN-CARDIAC REHABILITATION 08/09/2023 9:56 AM CONFERENCE RESERVATIONIST SCAN-CARDIAC REHABILITATION 08/07/2023 9:[address] CARDIAC MORPHOLOGY W DUAL READ Routine 08/04/2023 12:28 PM CONFERENCE RESERVATIONIST Severe aortic stenosis GLUCOSE METER Routine 08/04/2023 10:36 AM CONFERENCE RESERVATIONIST GLUCOSE METER Routine 08/04/2023 9:53 AM CONFERENCE RESERVATIONIST SCAN-CARDIAC REHABILITATION 08/04/2023 9:37 AM CONFERENCE RESERVATIONIST SCAN-CARDIAC REHABILITATION 08/04/2023 9:37 AM CONFERENCE RESERVATIONIST GLUCOSE METER Routine 08/02/2023 10:36 AM CONFERENCE RESERVATIONIST SCAN-CARDIAC REHABILITATION 08/02/2023 9:43 AM CONFERENCE RESERVATIONIST GLUCOSE METER Routine 08/02/2023 9:39 AM CONFERENCE RESERVATIONIST GLUCOSE METER Routine 07/31/2023 10:46 AM CONFERENCE RESERVATIONIST SCAN-CARDIAC REHABILITATION 07/31/2023 9:40 AM CONFERENCE RESERVATIONIST EKG 12 LEAD Routine 07/28/2023 1:39 PM CONFERENCE RESERVATIONIST Severe aortic stenosis CBC W PLT NO DIFF Routine 07/28/2023 1:3 5 PM CONFERENCE RESERVATIONIST Severe aortic stenosis BASIC METABOLIC PANEL Routine 07/28/2023 1:35 PM CONFERENCE RESERVATIONIST Severe aortic stenosis GLUCOSE METER Routine 07/28/2023 10:44 AM CONFERENCE RESERVATIONIST SCAN-CARDIAC REHABILITATION 07/28/2023 9:45 AM CONFERENCE RESERVATIONIST GLUCOSE METER Routine 07/26/2023 9:42 AM CONFERENCE RESERVATIONIST SCAN-CARDIAC REHABILITATION 07/26/2023 9:40 AM CONFERENCE RESERVATIONIST ECHO TTE LIMITED WO CONTRAST W COLOR W LTD DOPPLER Routine 07/26/2023 8:17 AM CONFERENCE RESERVATIONIST Severe aortic stenosis EXTENDED HOLTER Routine 07/24/2023 Complete left bundle branch block GLUCOSE METER Routine 07/21/2023 9:43 AM CONFERENCE RESERVATIONIST SCAN-CARDIAC REHABILITATION 07/21/2023 9:39 AM CONFERENCE RESERVATIONIST GLUCOSE METER Routine 07/20/2023 10:26 AM CONFERENCE RESERVATIONIST GLUCOSE METER Routine 07/20/2023 10:02 AM CONFERENCE RESERVATIONIST SCAN-CARDIAC REHABILITATION 07/20/2023 9:57 AM CONFERENCE RESERVATIONIST SCAN CORRESP-EKG RESULTS 07/10/2023 3:27 PM CONFERENCE RESERVATIONIST GLUCOSE METER Timed 07/06/2023 12:13 PM CONFERENCE RESERVATIONIST US ARTERIAL LOWER EXTREMITY PSEUDOANEURYSM LEFT SHEN 07/06/2023 11:09 AM CONFERENCE RESERVATIONIST SCAN-CARDIAC STRIP 07/06/2023 8: 05 AM CONFERENCE RESERVATIONIST GLUCOSE METER Timed 07/06/2023 7:24 AM CONFERENCE RESERVATIONIST PROTIME-INR STAT 07/06/2023 6:34 AM CONFERENCE RESERVATIONIST HEMOGLOBIN STAT 07/06/2023 6:34 AM CONFERENCE RESERVATIONIST SCAN-CARDIAC STRIP 07/06/2023 5: 40 AM CONFERENCE RESERVATIONIST XR CHEST 1 VIEW PORTABLE STAT 07/01/2023 9:16 PM CONFERENCE RESERVATIONIST US ARTERIAL LOWER EXTREMITY PSEUDOANEURYSM LEFT STAT 07/01/2023 8:20 PM CONFERENCE RESERVATIONIST LACTATE SCREEN VENOUS ISTAT W QUEEN Timed 07/01/2023 7:50 PM CONFERENCE RESERVATIONIST TYPE & SCREEN STAT 07/01/2023 7:41 PM CONFERENCE RESERVATIONIST TROPONIN T (HS) ONE TIME Timed 07/01/2023 7:41 PM CONFERENCE RESERVATIONIST PROTIME-INR STAT 07/01/2023 7:41 PM CONFERENCE RESERVATIONIST EXTRA TUBE QUEEN ON ICE STAT 07/01/2023 7:40 PM CONFERENCE RESERVATIONIST ISTAT LACTATE SCREEN VENOUS STAT 07/01/2023 7:40 PM CONFERENCE RESERVATIONIST BASIC METABOLIC PANEL STAT 07/01/2023 6:47 PM CONFERENCE RESERVATIONIST TROPONIN T (HS) ACUTE W/2HR REFLEX STAT 07/01/2023 6:47 PM CONFERENCE RESERVATIONIST PRO-BNP STAT 07/01/2023 6:47 PM CONFERENCE RESERVATIONIST CBC W PLT NO DIFF STAT 07/01/2023 6:4 6 PM CONFERENCE RESERVATIONIST EKG 12 LEAD STAT 07/01/2023 6:28 PM CONFERENCE RESERVATIONIST GLUCOSE METER Timed 06/30/2023 10:57 AM CONFERENCE RESERVATIONIST SCAN-CARDIAC STRIP 06/30/2023 10:36 AM CONFERENCE RESERVATIONIST MAGNESIUM Early AM 06/30/2023 8:00 AM CONFERENCE RESERVATIONIST BASIC METABOLIC PANEL Early AM 06/30/2023 8:00 AM CONFERENCE RESERVATIONIST CBC W PLT NO DIFF Early AM 06/30/2023 7:5 9 AM CONFERENCE RESERVATIONIST GLUCOSE METER Timed 06/30/2023 7:31 AM CONFERENCE RESERVATIONIST EKG 12 LEAD SHEN 06/30/2023 6:22 AM CONFERENCE RESERVATIONIST SCAN-CARDIAC STRIP 06/30/2023 4: 01 AM CONFERENCE RESERVATIONIST GLUCOSE METER Timed 06/29/2023 9:40 PM CONFERENCE RESERVATIONIST HEMOGLOBIN Today 06/29/2023 5:52 PM CONFERENCE RESERVATIONIST GLUCOSE METER Timed 06/29/2023 5:44 PM CONFERENCE RESERVATIONIST GLUCOSE METER Timed 06/29/2023 4:46 PM CONFERENCE RESERVATIONIST SCAN-CARDIAC STRIP 06/29/2023 3: 55 PM CONFERENCE RESERVATIONIST ECHO TTE LIMITED WO CONTRAST W COLOR W LTD DOPPLER Routine 06/29/2023 3:54 PM CONFERENCE RESERVATIONIST EKG 12 LEAD STAT 06/29/2023 2:11 PM CONFERENCE RESERVATIONIST HCHG ACTIVATED CLOTTING TM CV Timed 06/29/2023 1:26 PM CONFERENCE RESERVATIONIST HEMOGLOBIN STAT 06/29/2023 1:19 PM CONFERENCE RESERVATIONIST GLUCOSE METER Timed 06/29/2023 1:04 PM CONFERENCE RESERVATIONIST XR PELVIS 1 VIEW PORTABLE Routine 06/29/2023 12:07 PM CONFERENCE RESERVATIONIST TRANSFUSE RBC (NURSE COMMUNICATION ORDER) STAT 06/29/2023 11:32 AM CONFERENCE RESERVATIONIST COMPREHENSIVE BLOOD GAS ARTERIAL Timed 06/29/2023 11:22 AM CONFERENCE RESERVATIONIST RBC W/O TYPE & SCREEN STAT 06/29/2023 11:11 AM CONFERENCE RESERVATIONIST RED BLOOD CELLS EA UNIT STAT 06/29/2023 11:09 AM CONFERENCE RESERVATIONIST RED BLOOD CELLS EA UNIT STAT 06/29/2023 11:09 AM CONFERENCE RESERVATIONIST ENDOTRACHEAL TUBE Routine 06/29/2023 10:10 AM CONFERENCE RESERVATIONIST ENDOTRACHEAL TUBE Routine 06/29/2023 10:10 AM CONFERENCE RESERVATIONIST ENDOTRACHEAL TUBE Routine 06/29/2023 10:10 AM CONFERENCE RESERVATIONIST ENDOTRACHEAL TUBE Routine 06/29/2023 10:10 AM CONFERENCE RESERVATIONIST CUTDOWN FEMORAL ARTERY Class A Emergency 06/29/2023 9:44 AM CONFERENCE RESERVATIONIST Perclose failure HCHG ACTIVATED CLOTTING TM CV Timed 06/29/2023 9:05 AM CONFERENCE RESERVATIONIST CVL TAVR Routine 06/29/2023 8:49 AM CONFERENCE RESERVATIONIST RBC W/O TYPE & SCREEN STAT 06/29/2023 7:38 AM CONFERENCE RESERVATIONIST RED BLOOD CELLS EA UNIT STAT 06/29/2023 7:35 AM CONFERENCE RESERVATIONIST RED BLOOD CELLS EA UNIT STAT 06/29/2023 7:35 AM CONFERENCE RESERVATIONIST TYPE & SCREEN Preop 06/29/2023 6:20 AM CONFERENCE RESERVATIONIST PROTIME-INR STAT 06/29/2023 6:20 AM CONFERENCE RESERVATIONIST GLUCOSE, FASTING Preop 06/29/2023 6:20 AM CONFERENCE RESERVATIONIST SCAN-CARDIAC STRIP 06/29/2023 12:00 AM CONFERENCE RESERVATIONIST EKG 12 LEAD Routine 06/23/2023 9:43 AM CONFERENCE RESERVATIONIST Aortic valve stenosis, etiology of cardiac valve disease unspecified PULP BLEACHER QUESTION TEST Routine 06/23/2023 9:42 AM CONFERENCE RESERVATIONIST Pre-op testing TYPE & SCREEN Routine 06/23/2023 9:42 AM CONFERENCE RESERVATIONIST Pre-op testing PROTIME-INR Routine 06/23/2023 9:42 AM CONFERENCE RESERVATIONIST Pre-op testing ALBUMIN Routine 06/23/2023 9:42 AM CONFERENCE RESERVATIONIST Pre-op testing CBC W PLT NO DIFF Routine 06/23/2023 9:4 2 AM CONFERENCE RESERVATIONIST Pre-op testing BASIC METABOLIC PANEL Routine 06/23/2023 9:42 AM CONFERENCE RESERVATIONIST Pre-op testing from Last 3 Months Results * SCAN-CARDIAC REHABILITATION (09/20/2023 9:50 AM CDT) Only the most recent of30 resultswithin the time period is included. Scanner OTHER * LAB TRACKING EVENT (08/29/2023 9:20 AM CDT) Other (Other) Client Collect / Unknown 08/29/2023 9:20 AM CDT 08/29/2023 3:34 PM CDT Emely Henson PA-C LAB BILL ONLY [facility] [address] [place] [address], * PERIPHERAL BLD MORPHOLOGY (08/29/2023 9:20 AM CDT) Case Report Special Hematology Report ? Case: [id number] ? Authorizing Provider: ??Emely Henson PA-C ?Collected: ? 08/29/2023 0920 ? Ordering Location: ? [facility] ?Received: ?08/29/2023 1642 ? Pathologist: ? Flip Craven, ? MD ? Specimen: ?Peripheral Blood ? 08/30/2023 11:18 AM [facility] Final Diagnosis PERIPHERAL BLOOD: 1. Moderate normocytic, hypochromic anemia with increased rouleaux formation 2. Mild absolute lymphopenia, nonspecific 3. See comment 08/30/2023 11:18 AM [facility] Comment The morphologic features of the anemia are nonspecific. The differential includes iron deficiency, anemia of chronic disease, anemia of chronic renal insufficiency, anatomic blood loss and medication effect. There is no morphologic evidence of hemolysis. Rouleaux formation may be associated with increased serum proteins (monoclonal or polyclonal). Correlation with serum and/or urine protein electrophoresis studies (with reflex immunofixation studies, as appropriate) could be considered, as clinically indicated. 08/30/2023 11:18 AM [facility] Clinical Information 68-year-old male with anemia, anticoagulation and weight loss. Evaluate for abnormal cells. 08/30/2023 11:18 AM [facility] CBC and Differential HEMATOLOGY PARAMETERS Tested at: ??[facility] ? RESULTS ??EXPECTED VALUES WBC: ? 7.8 ?4.5-93h4490/cum m ? RBC: ? 3.41 ? 4.30-5.90 mil/cumm ??DECREASED HGB: ? 8.4 ?13.5-17.5 gm/di ? DECREASED HCT: ? 27.2 ? 37-53% ?DECREASED MCV: ? 80.0 ? 80-100 fl ? NORMOCYTIC MCH: ? 24.6 ? 26-34 pg ?DECREASED MCHC: ?30.9 ? 32-36 gm/dl ? HYPOCHROMIC RDW: ? 14.3 ? 11.5-15.5% ? PLT: ? 260 ?140-868w2253/uL ? Differential ?Absolute (%) ?Expected (%) ?(x10*9/L) ? (x10*9/L) Neutrophils: ?6.4 (82.5) ?1.7-7.0 (42-72%) ? Lymphocytes: ?0.5 (6.4) ? 0.9-2.9 (20-44%) ??DECREASED Monocytes: ?0.5 (6.4) ?<0.9 (0-11%) ? Eosinophils: ?0.3 (3.9) ?<0.5 (0-2%) ? 08/30/2023 11:[address] [facility] LABORATORY-C ENTRAL LABORATORY Microscopic Description The final diagnosis is based on microscopic examination of an appropriately stained blood smear. 08/30/2023 11:[address] [facility] LABORATORY-C ENTRAL LABORATORY Additional Information Interpreted at [facility], Central Laboratory - [address], [place] [address] 08/30/2023 11:18 AM CDT [facility] LAB[facility] Blood (Peripheral Blood) 08/29/2023 9:20 AM CDT 08/29/2023 4:42 PM CDT Emely Henson PA-C HEMATOLOGY [facility] [address] [place] [address], [place] * US ARTERIAL LOWER EXTREMITY W ARTEM LEFT (08/16/2023 1:36 PM CONFERENCE RESERVATIONIST) Anatomical Region Laterality Modality LEG L Ultrasound 08/16/2023 1:11 PM CONFERENCE RESERVATIONIST Narrative 08/17/2023 7:15 AM CONFERENCE RESERVATIONIST VASCULAR ULTRASOUND REPORT VILMA UGARTE Accession#: ?? [id number] : ?1955 ?? Study Date: ?? 08/16/2023 1:11:53 PM Age: ?68 years ?? Tech: ? BSG Gender: M ?Referring MD: KADIE HENDRICKS Site: [facility] Study performed: ?Lower extremity duplex US, resting ARTEM, (left), TBI. Indication for study: Follow-up known PAD Study Quality: ?Good TECHNIQUE: Lower/upper extremity arteries were examined per exam protocol by duplex ultrasound, color-flow and spectral Doppler. Peak systolic velocities (PSV), Doppler waveform quality, velocity ratios and vessel size in cm, were documented at protocol specific sites. Physiologic data including segmental pressures, ankle/brachial index (ARTEM), digit PPG recordings, laser Doppler flowmetry, transcutaneous oximetry, and digit temperatures were documented at sites per exam protocol and test requirements. IMPRESSION: 1. Resting ankle-brachial index is falsely elevated on the right at 1.82 and is falsely elevated on the left at 1.82. 2. Toe-brachial index is mildly reduced on the right at 0.54 and toe-brachial index is mildly reduced on the left at 0.61. 3. Evaluation of the lower left extremity shows 50-74% stenosis in the proximal superficial femoral artery. 4. Left ankle/brachial index is noncompressible. 5. Right ankle/brachial index is noncompressible. COMPARISON: No prior study available for comparison. FINDINGS: Right ankle/brachial index is noncompressible. Right toe/brachial index indicates mild range. Left ankle/brachial index is noncompressible. Left toe/brachial index indicates mild range. There is 50-74% stenosis in the left proximal superfical femoral artery. +--------+ + + RIGHT ?? Velocity cm/s Phasicity ?? +--------+ + + THREAD MILLING MACHINE SET UP OPERATOR DST ? 130 ? multiphasic +--------+ + + ELLIS DST ? 49 ? multiphasic +--------+ + + DPA ? 49 ? multiphasic +--------+ + + + + + + +--------+-----+ LEFT ? Velocity cm/s POST ? Phasicity ?? Stenosis Ratio ? Velocity cm/s ? Phasicity ? + + + + +--------+-----+ PATIENT CARE REPRESENTATIVE PRX ? 152 ? multiphasic ? + + + + +--------+-----+ PATIENT CARE REPRESENTATIVE DST ? 122 ? multiphasic ? + + + + +--------+-----+ PFA ? 82 ? multiphasic ? + + + + +--------+-----+ SFA PRX ? 246 ? 153 ? multiphasic 50-74% 2.0 ? multiphasic ? + + + + +--------+-----+ SFA PRX MID ? 81 ? multiphasic ? + + + + +--------+-----+ SFA MID ? 99 ? multiphasic ? + + + + +--------+-----+ SFA DST ? 97 ? multiphasic ? + + + + +--------+-----+ ROME PRX ? 73 ? multiphasic ? + + + + +--------+-----+ ROME DST ? 77 ? multiphasic ? + + + + +--------+-----+ THREAD MILLING MACHINE SET UP OPERATOR DST ? 61 ? multiphasic ? + + + + +--------+-----+ ELLIS DST ? 33 ? multiphasic ? + + + + +--------+-----+ DPA ? 72 ? multiphasic ? + + + + +--------+-----+ Criteria: Stenosis ?V. Ratio Mild ?<50% ?<2.0 Moderate ?? 50-74% ?> or = 2.0 Severe ? 75-99% ?> or = 4.0 Occluded ?100% ?? no detectable flow Pressures +-----+ +--------+ +-----+ ? RIGHT (mmHg) ? LEFT (mmHg) ? +-----+ +--------+ +-----+ Index ?140 ? Brachial ? Index +-----+ +--------+ +-----+ 1.82 ?255 ?THREAD MILLING MACHINE SET UP OPERATOR ?255 ? 1.82 +-----+ +--------+ +-----+ 1.82 ?255 ?DPA ?255 ? 1.82 +-----+ +--------+ +-----+ 0.54 ? 76 ? Digit 1 ?86 ? 0.61 +-----+ +--------+ +-----+ Shankar Tavera MD. Electronically signed on 08/17/2023 7:15:06 AM This study was performed and interpreted by a service accredited by the Intersocietal Accreditation Commission (IAC/Vascular), [email or web address] Report generated by [employer]. ??Final ?? Procedure Note Shankar Tavera MD - 08/17/2023 VASCULAR ULTRASOUND REPORT VILMA UGARTE : 1955 Study Date: 08/16/2023 1:11:53 PM Age: 68 years Tech: BSG Gender: M Referring MD: KADIE HENDRICKS Site: [facility] Study performed: Lower extremity duplex US, resting ARTEM, (left),TBI. Indication for study: Follow-up known PAD Study Quality: Good TECHNIQUE: Lower/upper extremity arteries were examined per exam protocol by duplexultrasound, color-flow and spectral Doppler. Peak systolic velocities(PSV), Doppler waveform quality, velocity ratios and vessel size in cm,were documented at protocol specific sites. Physiologic data includingsegmental pressures, ankle/brachial index (ARTEM), digit PPG recordings,laser Doppler flowmetry, transcutaneous oximetry, and digit temperatureswere documented at sites per exam protocol and test requirements. IMPRESSION: 1. Resting ankle-brachial index is falsely elevated on the right at 1.82and is falsely elevated on the left at 1.82. 2. Toe-brachial index is mildly reduced on the right at 0.54 andtoe-brachial index is mildly reduced on the left at 0.61. 3. Evaluation of the lower left extremity shows 50-74% stenosis in theproximal superficial femoral artery. 4. Left ankle/brachial index is noncompressible. 5. Right ankle/brachial index is noncompressible. COMPARISON: No prior study available for comparison. FINDINGS: Right ankle/brachial index is noncompressible. Right toe/brachial indexindicates mild range. Left ankle/brachial index is noncompressible. Left toe/brachial indexindicates mild range. There is 50-74% stenosis in the left proximalsuperfical femoral artery. +--------+ + + RIGHT Velocity cm/s Phasicity +--------+ + + THREAD MILLING MACHINE SET UP OPERATOR DST 130 multiphasic +--------+ + + ELLIS DST 49 multiphasic +--------+ + + DPA 49 multiphasic +--------+ + + + + + + +--------+-----+ LEFT Velocity cm/s POST Phasicity Stenosis Ratio Velocity cm/s Phasicity + + + + +--------+-----+ PATIENT CARE REPRESENTATIVE PRX 152 multiphasic + + + + +--------+-----+ PATIENT CARE REPRESENTATIVE DST 122 multiphasic + + + + +--------+-----+ PFA 82 multiphasic + + + + +--------+-----+ SFA PRX 246 153 multiphasic 50-74% 2.0 multiphasic + + + + +--------+-----+ SFA PRX MID 81 multiphasic + + + + +--------+-----+ SFA MID 99 multiphasic + + + + +--------+-----+ SFA DST 97 multiphasic + + + + +--------+-----+ ROME PRX 73 multiphasic + + + + +--------+-----+ ROME DST 77 multiphasic + + + + +--------+-----+ THREAD MILLING MACHINE SET UP OPERATOR DST 61 multiphasic + + + + +--------+-----+ ELLIS DST 33 multiphasic + + + + +--------+-----+ DPA 72 multiphasic + + + + +--------+-----+ Criteria: Stenosis V. Ratio Mild <50% <2.0 Moderate 50-74% > or = 2.0 Severe 75-99% > or = 4.0 Occluded 100% no detectable flow Pressures +-----+ +--------+ +-----+ RIGHT (mmHg) LEFT (mmHg) +-----+ +--------+ +-----+ Index 140 Brachial Index +-----+ +--------+ +-----+ 1.82 255 THREAD MILLING MACHINE SET UP OPERATOR 255 1.82 +-----+ +--------+ +-----+ 1.82 255 DPA 255 1.82 +-----+ +--------+ +-----+ 0.54 76 Digit 1 86 0.61 +-----+ +--------+ +-----+ Shankar Tavera MD. Electronically signed on 08/17/2023 7:15:06 AM This study was performed and interpreted by a service accredited by theIntersocietal Accreditation Commission (IAC/Vascular),[email or web address] Report generated by [employer]. Final Kadie CHILDERS US * CT CARDIAC MORPHOLOGY W DUAL READ (08/04/2023 12:28 PM CONFERENCE RESERVATIONIST) Anatomical Region Laterality Modality HEART Computed Tomogra phy Impressions 08/10/2023 7:54 AM CONFERENCE RESERVATIONIST ?? Normal functioning Evolut FX TAVR valve. No HALT. Normal leaflet opening. Small amount of low attenuation material in the left coronary sinus. FINDINGS: The coronary arteries are aligned with the Evolut FX leaflets. There is no HALT and the leaflets open normally. Modest left coronary sinus low attenuation material is noted in the sinus and not in the base of the leaflet. MD SANTOS Mcginnis/lamberto For Patients: As a result of the Century Cures Act, medical imaging exams and procedure reports are released immediately into your electronic medical record. ??You may view this report before your referring provider. ?? If you have questions, please contact your health care provider. OVER-READ ? OVER-READ ?OVER-READ OVER-READ: DETAILED RADIOLOGY EXTRACARDIAC OVER-READ OF CARDIAC CT 08/04/2023 Comparison: CT angio of the chest, abdomen, and pelvis dated 16 May 2023. Findings: No lower central pulmonary emboli. ??No lower hilar adenopathy. The visualized portions of the lungs show an airspace opacity in the posterior aspect the left upper lobe which is increased in size. ??New airspace opacity in the posterior inferior right upper lobe. ??No pneumothorax. Degenerative changes of the spine. ??No other bony or soft tissue abnormalities identified. Impression: Airspace opacity in the left upper lobe is increased in size. ??New airspace opacity in the right upper lobe. ??This could represent a multilobar pneumonia or organizing pneumonia. Recommend chest CT scan for further evaluation. Narrative 08/10/2023 7:54 AM CONFERENCE RESERVATIONIST Results are automatically released to your [employer] account once available, in compliance with federal regulations. ??This means that you may see your results before your provider has had a chance to review them. ??Please allow 2-3 business days for your provider to comment on the results. STUDY: POST-TAVR CTA, 08/04/2023 STUDY PARAMETERS: Contrast used: Omnipaque 350, 70 mL; 4.8 mSv radiation dose; Siemens [employer] dual source Drive CT. INDICATIONS: Status post Evolut FX valve placement, evaluate for HALT. SCAN QUALITY: ??Good. Leon Broussard SOFTWARE QUALITY ASSURANCE ANALYST CT * (ABNORMAL) GLUCOSE METER (08/04/2023 10:36 AM CONFERENCE RESERVATIONIST) Only the most recent of18 resultswithin the time period is included. GLUCOSE METER 175(H) 65 - 100 mg/dL 08/04/2023 10:37 AM CONFERENCE RESERVATIONIST [facility] Blood BLOOD SPECIMEN / Unknown 08/04/2023 10:36 AM CONFERENCE RESERVATIONIST 08/04/2023 10:37 AM CONFERENCE RESERVATIONIST Radha Hernandez MD CHEMISTRY [facility] [address] [id number] * EKG 12 LEAD (07/28/2023 1:39 PM CONFERENCE RESERVATIONIST) Only the most recent of5 resultswithin the time period is included. Interpretation Normal sinus rhythm Left bundle branch block Abnormal ECG Ventricular Rate 88 BPM Atrial Rate 88 BPM P-R Interval 182 ms QRS Duration 130 ms QT 398 ms QTc 481 ms P [place] 86 degrees R [place] 67 degrees T [place] 100 degrees 07/28/2023 1:39 PM CONFERENCE RESERVATIONIST 07/29/2023 11:27 AM [facility] Leon Broussard SOFTWARE QUALITY ASSURANCE ANALYST EKG ORD * (ABNORMAL) CBC W PLT NO DIFF (07/28/2023 1:35 PM CONFERENCE RESERVATIONIST) Only the most recent of4 resultswithin the time period is included. WHITE BLOOD COUNT 8.7 4.5 - 11.0 thou/cu mm 07/28/2023 2:07 PM [facility] RED BLOOD COUNT 3.91(L) 4.30 - 5.90 mil/cu mm 07/28/2023 2:07 PM [facility] HEMOGLOBIN 10.4(L) 13.5 - 17.5 g/dL 07/28/2023 2:07 PM [facility] HEMATOCRIT 32.6(L) 37.0 - 53.0 % 07/28/2023 2:07 PM [facility] MCV 83 80 - 100 fL 07/28/2023 2:07 PM [facility] MCH 26.6 26.0 - 34.0 pg 07/28/2023 2:07 PM [facility] MCHC 31.9(L) 32.0 - 36.0 g/dL 07/28/2023 2:07 PM [facility] RDW 13.5 11.5 - 15.5 % 07/28/2023 2:07 PM [facility] PLATELET COUNT 374 140 - 440 thou/cu mm 07/28/2023 2:07 PM [facility] MPV 9.6 6.5 - 11.0 fL 07/28/2023 2:07 PM [facility] NRBC 0.0 % 07/28/2023 2:07 PM [facility] ABS NRBC 0.0 thou /cu mm 07/28/2023 2:07 PM [facility] Blood BLOOD SPECIMEN / Unknown Venipuncture / Unknown 07/28/2023 1:35 PM CONFERENCE RESERVATIONIST 07/28/2023 1:57 PM CONFERENCE RESERVATIONIST Narrative [facility] - 07/28/2023 2:07 PM CONFERENCE RESERVATIONIST This procedure was originally ordered at [facility]. Leon Broussard NP HEMATOLOGY [facility] [address] [place] [address], [place] * (ABNORMAL) BASIC METABOLIC PANEL (07/28/2023 1:35 PM CONFERENCE RESERVATIONIST) Only the most recent of4 resultswithin the time period is included. SODIUM 139 136 - 145 mmol/L 07/28/2023 2:33 PM [facility] POTASSIUM 4.6 3.5 - 5.1 mmol/L 07/28/2023 2:33 PM [facility] CHLORIDE 102 98 - 107 mmol/L 07/28/2023 2:33 PM [facility] CO2,TOTAL 25 22 - 29 mmol/L 07/28/2023 2:33 PM [facility] ANION GAP 12 5 - 18 07/28/2023 2:33 PM [facility] GLUCOSE 129(H) 70 - 99 mg/dL 07/28/2023 2:33 PM [facility] CALCIUM 9.6 8.8 - 10.2 mg/dL 07/28/2023 2:33 PM [facility] BUN 17 8 - 23 mg/dL 07/28/2023 2:33 PM [facility] CREATININE 0.84 0.70 - 1.20 mg/dL 07/28/2023 2:33 PM [facility] BUN/CREAT RATIO 20 10 - 20 2:33 PM [facility] eGFR >90 >90 mL/min/1.7 3m2 07/28/2023 2:33 PM [facility] Comment:As of 2021, eG FR is calculated by the CKD-EPI creatinine equation without race adjustment. ??eGFR can be influenced by muscle mass, exercise, and diet. ??The reported eGFR is an estimation only and is only applicable if the renal function is stable. Blood BLOOD SPECIMEN / Unknown Venipuncture / Unknown 07/28/2023 1:35 PM CONFERENCE RESERVATIONIST 07/28/2023 1:57 PM CONFERENCE RESERVATIONIST Leon Broussard SOFTWARE QUALITY ASSURANCE ANALYST CHEMISTRY [facility] [address] [place] [id number], * ECHO TTE LIMITED WO CONTRAST W COLOR W LTD DOPPLER (07/26/2023 8:17 AM CONFERENCE RESERVATIONIST) Only the most recent of2 resultswithin the time period is included. AORTIC VALVE MEAN PG 7 mmHg LVEDD 3.8 cm EJECTION FRACTION 70 - 75% Anatomical Region Laterality Modality Ultrasound 07/26/2023 7:48 AM CONFERENCE RESERVATIONIST Narrative 07/26/2023 8:59 AM CONFERENCE RESERVATIONIST ECHOCARDIOGRAM VILMA UGARTE ?Accession#: ?? [id number] : ?1955 68 years Study Date: ?? 07/26/2023 7:48:51 AM Gender: M ? BP: ? 130/70 mmHg Height: 170.00 cm ? BSA: ?1.89 m? ? ? Weight: 78.00 kg ?Tech: ? MHR ?Referring MD: LEON BROUSSARD Site: ? [facility] Reading Location: MOBILE OP Patient [...] . This study was interpreted by an [facility] accredited facility. ??Final ?? Procedure Note Elizabeth Bryant, [facility] - 07/26/2023 ECHOCARDIOGRAM VILMA UGARTE : 1955 68 years Study Date: 07/26/2023 7:48:51 AM Gender: M BP: 130/70 mmHg Height: 170.00 cm BSA: 1.89 m? ? ? Weight: 78.00 kg Tech: R Referring MD: LEON BROUSSARD Site: [facility] Reading Location: MOBILE OP Patient [...] . This study was interpreted by an [facility] accredited facility. Final Leon Broussard NP ECHO ORD * EXTENDED HOLTER (07/24/2023) Leon Broussard NP CARDIAC SERVICES OR D * SCAN CORRESP-EKG RESULTS (07/10/2023 3:27 PM CONFERENCE RESERVATIONIST) Narrative 07/10/2023 3:27 PM CONFERENCE RESERVATIONIST Ordered by an unspecified provider. Other Clinical Staff OTHER * US ARTERIAL LOWER EXTREMITY PSEUDOANEURYSM LEFT (07/06/2023 11:09 AM CONFERENCE RESERVATIONIST) Only the most recent of2 resultswithin the time period is included. Anatomical Region Laterality Modality LEG L Ultrasound 07/06/2023 11:3 6 AM CONFERENCE RESERVATIONIST Impressions 07/06/2023 11:36 AM CONFERENCE RESERVATIONIST 1. 2.7 cm hematoma in the left inguinal region. No sonographic evidence of pseudoaneurysm or arteriovenous fistula. Dictated by Marvin Cheema MD @ 07/06/2023 11:36:57 AM (Electronically Signed) Narrative 07/06/2023 11:36 AM CONFERENCE RESERVATIONIST For Patients: ??As a result of the [...] result of the Century Cures Act, medical imagingexams and procedure [...] US * SCAN-CARDIAC STRIP (07/06/2023 8:05 AM CONFERENCE RESERVATIONIST) Scanner OTHER * (ABNORMAL) HEMOGLOBIN (07/06/2023 6:34 AM CONFERENCE RESERVATIONIST) Only the most recent of3 resultswithin the time period is included. HEMOGLOBIN 8.5(L) 13.5 - 17.5 g/dL 07/06/2023 7:06 AM CONFERENCE RESERVATIONIST [facility] MCV 85 80 - 100 fL 07/06/2023 7:06 AM CONFERENCE RESERVATIONIST [facility] Blood BLOOD SPECIMEN / Unknown Venipuncture / Unknown 07/06/2023 6:34 AM CONFERENCE RESERVATIONIST 07/06/2023 6:55 AM CONFERENCE RESERVATIONIST Donald Lee MD HEMATOLOGY [facility] [address] [address], * (ABNORMAL) INR AM (07/06/2023 6:34 AM CONFERENCE RESERVATIONIST) Only the most recent of4 resultswithin the time period is included. INR 1.6(H) <1.3 07/06/2023 7:06 AM CONFERENCE RESERVATIONIST [facility] PROTIME 17.8(H) 10.3 - 12.3 sec 07/06/2023 7:06 AM CONFERENCE RESERVATIONIST [facility] Blood BLOOD SPECIMEN / Unknown Venipuncture / Unknown 07/06/2023 6:34 AM CONFERENCE RESERVATIONIST 07/06/2023 6:55 AM CONFERENCE RESERVATIONIST Narrative [facility] - 07/06/2023 7:06 AM CONFERENCE RESERVATIONIST ?Therapeutic Range 2.0-3.0 for most anticoagulated patients [...] is on UFH. Donald Lee MD HEMATOLOGY [facility] [address] [address], [place] * SCAN-CARDIAC STRIP (07/06/2023 5:40 AM CONFERENCE RESERVATIONIST) Scanner OTHER * XR CHEST 1 VIEW PORTABLE (07/01/2023 9:16 PM CONFERENCE RESERVATIONIST) Anatomical Region Laterality Modality HEART, THORAX, CHEST Digital Rad iography 07/01/2023 9:19 PM CONFERENCE RESERVATIONIST Narrative 07/01/2023 9:19 PM CONFERENCE RESERVATIONIST For Patients: ??As a result of the [...] VENOUS ISTAT W QUEEN (07/01/2023 7:50 PM CONFERENCE RESERVATIONIST) LACTATE VENOUS SCREEN ISTAT <1.8 <=2.0 07/01/2023 7:54 PM CONFERENCE RESERVATIONIST [facility] LACTATE SCREEN VENOUS POCT 1.5 <=2.0 07/01/2023 7:54 PM CONFERENCE RESERVATIONIST [facility] Blood BLOOD SPECIMEN / Unknown 07/01/2023 7:50 PM CONFERENCE RESERVATIONIST 07/01/2023 7:54 PM CONFERENCE RESERVATIONIST Mari Ibarra MD LABORATORY [facility] [address] [place] [address], * (ABNORMAL) TROPONIN T (HS) ONE TIME (07/01/2023 7:41 PM CONFERENCE RESERVATIONIST) TROPONIN T HS 74(H) 6-15 ng/L ng/L 07/01/2023 8:14 PM CONFERENCE RESERVATIONIST [facility] Blood BLOOD SPECIMEN / Unknown Butterfly / Unknown 07/01/2023 7:41 PM CONFERENCE RESERVATIONIST 07/01/2023 7:49 PM CONFERENCE RESERVATIONIST Anw Ed Triage CHEMISTRY Performing Organization Address [facility] Co de Phone Number [facility] [address] [place] [address], * TYPE AND SCREEN ONLY (07/01/2023 7:41 PM CONFERENCE RESERVATIONIST) Only the most recent of3 resultswithin the time period is included. Pathologist [facility] ABORH A Rh Positive 07/01/2023 10:05 PM CONFERENCE RESERVATIONIST [facility] B[facility]OD BANK ANTIBODY SCREEN Negative Negative 07/01/2023 10:05 PM CONFERENCE RESERVATIONIST [facility] BLOOD BANK SPECIMEN EXPIRATION DATE/TIME 07/04/23 23:59 07/01/2023 10:05 PM CONFERENCE RESERVATIONIST [facility] B[facility]OD BANK Blood BLOOD SPECIMEN / Unknown Butterfly / Unknown 07/01/2023 7:41 PM CONFERENCE RESERVATIONIST 07/01/2023 9:29 PM CONFERENCE RESERVATIONIST Mari Ibarra MD BLOOD BANK Performing Organization Address City/[facility]/ZIP Co de Phone Number [facility] [address] [place] [address], * EXTRA TUBE QUEEN ON ICE (07/01/2023 7:40 PM CONFERENCE RESERVATIONIST) Blood BLOOD SPECIMEN / Unknown Butterfly / Unknown 07/01/2023 7:40 PM CONFERENCE RESERVATIONIST 07/01/2023 7:51 PM CONFERENCE RESERVATIONIST Mari Ibarra MD [facility] [address] [place] [address], * (ABNORMAL) TROPONIN T (HS) ACUTE W/2HR REFLEX (07/01/2023 6:47 PM CONFERENCE RESERVATIONIST) [facility] TROPONIN T HS 71(H) 6-15 ng/L ng/L 07/01/2023 7:[address] [facility] Blood BLOOD SPECIMEN / Unknown Venipuncture / Unknown 07/01/2023 6:47 PM CONFERENCE RESERVATIONIST 07/01/2023 6:52 PM CONFERENCE RESERVATIONIST Narrative [facility] - 07/01/2023 7:25 PM CONFERENCE RESERVATIONIST hs-cTnT (Elecsys Troponin T Gen 5) concentration [...] An Ed Triage CHEMISTRY Performing Organization Address [facility]/ZIP Co de Phone Number [facility] Job[employer] [facility] [address] [place] [address], [place] * (ABNORMAL) PRO-BNP (07/01/2023 6:47 PM CONFERENCE RESERVATIONIST) PRO-BNP 372(H) <125 pg/mL 07/01/2023 7:26 PM CONFERENCE RESERVATIONIST [facility] Blood BLOOD SPECIMEN / Unknown Venipuncture / Unknown 07/01/2023 6:47 PM CONFERENCE RESERVATIONIST 07/01/2023 6:52 PM CONFERENCE RESERVATIONIST Narrative [facility] - 07/01/2023 7:26 PM CONFERENCE RESERVATIONIST The following cut-points have been suggested for [...] Ed Triage SEND OUTS Performing Organization Address [facility]/ZIP Co de Phone Number [facility] [facility] [address] [place] [address], [place] * SCAN-CARDIAC STRIP (06/30/2023 10:36 AM CONFERENCE RESERVATIONIST) Scanner OTHER * MAGNESIUM (06/30/2023 8:00 AM CONFERENCE RESERVATIONIST) MAGNESIUM 1.6 1.6 - 2.4 mg/dL 06/30/2023 9:12 AM CONFERENCE RESERVATIONIST [facility] Blood BLOOD SPECIMEN / Unknown Venipuncture / Unknown 06/30/2023 8:00 AM CONFERENCE RESERVATIONIST 06/30/2023 8:07 AM CONFERENCE RESERVATIONIST Bella Benavidez MD CHEMISTRY Performing Organization Address City/[facility]/ZIP Co de Phone Number [facility] [address] [place] [address], [place] * SCAN-CARDIAC STRIP (06/30/2023 4:01 AM CONFERENCE RESERVATIONIST) Scanner OTHER * SCAN-CARDIAC STRIP (06/29/2023 3:55 PM CONFERENCE RESERVATIONIST) Scanner OTHER * (ABNORMAL) ACTIVATED CLOTTING TIME [id number] ACT (06/29/2023 1:26 PM CONFERENCE RESERVATIONIST) Only the most recent of2 resultswithin the time period is included. Pathologist [facility] ACTIVATED CLOTTING TIME, POCT 143(H) 74 - 125 sec 06/29/2023 3:03 PM CONFERENCE RESERVATIONIST [facility] Blood BLOOD SPECIMEN / Unknown 06/29/2023 1:26 PM CONFERENCE RESERVATIONIST 06/29/2023 3:03 PM CONFERENCE RESERVATIONIST Bella Benavidez MD HEMATOLOGY Performing Organization Address City/[facility]/ZIP Co de Phone Number [facility] [address] [place] [address], [place] * XR PELVIS 1 VIEW PORTABLE (06/29/2023 12:07 PM CONFERENCE RESERVATIONIST) Anatomical Region Laterality Modality Pelvis Digital Radiogra phy 06/29/2023 12:3 5 PM CONFERENCE RESERVATIONIST Narrative 06/29/2023 12:35 PM CONFERENCE RESERVATIONIST For Patients: ??As a result of the [...] RBC (NURSE COMMUNICATION ORDER) (06/29/2023 11:32 AM [facility]) Blood BLOOD SPECIMEN / Unknown Bella Benavidez MD NURSING BLOOD BANK * (ABNORMAL) COMPREHENSIVE BLOOD GAS ARTERIAL (06/29/2023 11:22 AM [facility]) PH, ARTERIAL 7.39 7.35 - 7.45 06/29/2023 11:22 AM [facility] PCO2, ARTERIAL 41 35 - 48 mmHg 06/29/2023 11:22 AM [facility] PO2, ARTERIAL 220(H) 83 - 108 mmHg 06/29/2023 11:22 AM [facility] HCO3, ARTERIAL 25 21 - 28 mmol/L 06/29/2023 11:22 AM [facility] BASE EXCESS, ARTERIAL -0.2 -2.0 - 3.0 06/29/2023 11:22 AM [facility] O2 SATURATION, ARTERIAL 100(H) 94 - 98 % 06/29/2023 11:22 AM [facility] PATIENT TEMPERATURE 37.0 Degrees C 06/29/2023 11:22 AM [facility] COLLECTION SITE ARTERIAL LINE 06/29/2023 11:22 AM [facility] HEMOGLOBIN,BLOO D GAS 8.2(L) 13.5 - 17.5 g/dL 06/29/2023 11:22 AM [facility] SODIUM 134(L) 136 - 145 mmol/L 06/29/2023 11:22 AM [facility] POTASSIUM 4.8 3.5 - 5.1 mmol/L 06/29/2023 11:22 AM [facility] CHLORIDE 108(H) 98 - 107 mmol/L 06/29/2023 11:22 AM [facility] Blood BLOOD SPECIMEN / Unknown 06/29/2023 11:22 AM CONFERENCE RESERVATIONIST 06/29/2023 11:23 AM CONFERENCE RESERVATIONIST Bella Benavidez MD CHEMISTRY Performing Organization Address City/[facility]/ZIP Co de Phone Number [facility] [employer]-[facility]AL LABORATORY [address] [place] [address], [place] * RBC W/O TYPE & SCREEN (06/29/2023 11:11 AM CONFERENCE RESERVATIONIST) Only the most recent of2 resultswithin the time period is included. QUANTITY 2 06/29/2023 11:[address] [facility] C[facility] LAB BLOOD BANK Blood BLOOD SPECIMEN / Unknown 06/29/2023 11:09 AM CONFERENCE RESERVATIONIST Ahmet Levy MD BLOOD BANK Performing Organization Address [facility] Co de Phone Number [facility] C[facility] BLOOD BANK [address] [place] [address], [place] [phone] * RED BLOOD CELLS EA UNIT (06/29/2023 11:09 AM CONFERENCE RESERVATIONIST) Only the most recent of4 resultswithin the time period is included. CROSSMATCH Compatible Compatible [facility] BLOOD B[facility] PRODUCT BLOOD TYPE A Rh Positive [facility] B[facility] PRODUCT ID NUMBER [id number] [facility] C[facility]-CENTRAL LAB BLOOD BANK PRODUCT STATUS /Relea sed [facility] BLOOD BANK PRODUCT DESCRIPTION RBC -[address] [facility] LAB-CENTRAL LAB BLOOD BANK PRODUCT CODE [id number] [facility] C[facility] LAB BLOOD BANK Ahmet Levy MD BLOOD BANK Performing Organization Address [facility]/ZIP Co de Phone Number [facility]xa[facility] B[facility] [address] [place] [address], [place] [phone] * HCHG TUBE PR1, HCHG INSTRUMENT DISP PR10, HCHG STYLET PR1, HCHG MOUTHPIECE PR1 (06/29/2023 10:10 AMCST) Narrative Carlos Briggs CRNA - 06/29/2023 10:10 AM CONFERENCE RESERVATIONIST Carlos Briggs CRNA ? 06/29/2023 10:11 AM [...] ORDERABLES * CVL TAVR (06/29/2023 8:49 AM CONFERENCE RESERVATIONIST) Anatomical Region Laterality Modality X-Ray Angiograph y, X-Ray Angiography 06/29/2023 8:49 AM CONFERENCE RESERVATIONIST Narrative Transcriptions Bella Benavidez MD - 06/29/2023 11:08 AM CST [facility] Cardiac Catheterization Report Name: VILMA UGARTE Event Date: 06/29/2023 08:49 Excellian ID #: [id number] BASIM #: [id number] Diagnostic Physician: BELLA BENAVIDEZ [facility] Interventional Physician: BELLA BENAVIDEZ [facility] Referring Physician: Date: 1955 Gender: Male Age: [...] ? LV Pressure = 165/15. Consent & [place] Protocol The risks, benefits, and alternatives of the procedure were discussed withthe patient and written informed consent was obtained. [place] protocol was followed. TIME OUT conducted just prior tostarting procedure confirmed patient identity, site/side, procedure,patient position, and availability of correct equipment and implants (ifapplicable). Staff Name Title Jony Tan RN Nurse Neelam Olguin RN Nurse Gabriela Delvalle RTR Monitor Javier, Vasiliy VEHICLE OPERATOR Teaching Specialists Ned, Vera CVT Teaching Specialists Junior Castellanos Fellow Leon Broussard NP Physician Greenhouse Manager BELLA BENAVIDEZ A R Specialist AHMET LEVY Vascular Surgeon Rachael Serna Fellow [...] Mellina RN 08:47 Versed 1 mg IV GoesslBella Mellina RN 08:48 Fentanyl 50 mcg IV Bella Benavidez Mellina RN 08:49 1% Lidocaine 10 ml Subcut Emanuel, Junior Emanuel, Junior 08:55 1% Lidocaine 10 ml Subcut Emanuel, Junior Emanuel, Junior 08:58 Heparin 8000 units IV Bella Benavidez Mellina RN 09:02 O2 2 l per min Nasal cannula Bella Benavidez Mellina RN 09:08 Heparin 3000 units IV JadynslBella Mellina RN 09:12 Fentanyl 25 mcg IV Bella Benavidez Mellina RN 09:12 Versed 0.5 mg IV Bella Benavidez Mellina RN 09:23 O2 4 l per min Nasal cannula Bella Benavidez Mellina RN 09:35 Protamine 70 mg IV JadynsBella lieberman Mellina RN 09:38 Fentanyl 25 mcg IV JadynsBella lieberman Mellina RN 09:38 Versed 0.5 mg IV GoesseBlla lieberman Mellina RN 09:42 Versed 0.5 mg IV GoessBella lieberman Mellina RN 09:42 Fentanyl 25 mcg IV Bella Benavidez Mellina RN 09:49 Versed 0.5 mg IV JadynsBella lieberman Mellina RN 09:49 Fentanyl 25 mcg IV [...] healthcare professional providing the sedation ends personal ycuseczietikiz-jm-[id number] time with the patient. The medications listed above were verbally ordered by me and read back tome as documented above. Refer to the procedure log report for additional case details. electronically signed on 06/29/2023 11:08:03 AM with status of Final Bella Benavidez MD [facility] [address] [place] [id number] (p) (f) Bella Benavidez MD CV IMAGING * (ABNORMAL) Glucose, Fasting (06/29/2023 6:20 AM CONFERENCE RESERVATIONIST) GLUCOSE 174(H) 70 - 99 mg/dL 06/29/2023 6:58 AM CONFERENCE RESERVATIONIST [facility] Blood BLOOD SPECIMEN / Unknown Venipuncture / Unknown 06/29/2023 6:20 AM CONFERENCE RESERVATIONIST 06/29/2023 6:30 AM CONFERENCE RESERVATIONIST Leon Broussard SOFTWARE QUALITY ASSURANCE ANALYST CHEMISTRY [facility] [address] [place] [address], * SCAN-CARDIAC STRIP (06/29/2023 12:00 AM CONFERENCE RESERVATIONIST) Narrative 06/29/2023 12:00 AM CONFERENCE RESERVATIONIST Ordered by an unspecified provider. Other Clinical Staff OTHER * PULP BLEACHER QUESTION TEST (06/23/2023 9:42 AM CONFERENCE RESERVATIONIST) QABT Question Yes 06/23/2023 9:56 AM CONFERENCE RESERVATIONIST [facility] Blood BLOOD SPECIMEN / Unknown Venipuncture / Unknown 06/23/2023 9:42 AM CONFERENCE RESERVATIONIST 06/23/2023 9:50 AM CONFERENCE RESERVATIONIST Bella Benavidez MD BLOOD BANK [facility] [facility] LAB BLOOD BANK [address] [place] [address], * ALBUMIN (06/23/2023 9:42 AM CONFERENCE RESERVATIONIST) ALBUMIN 4.1 4.0 - 4.9 g/dL 06/23/2023 10:[address] [facility] Job36 LABORATORY-CENTR AL LABORATORY Blood BLOOD SPECIMEN / Unknown Venipuncture / Unknown 06/23/2023 9:42 AM CONFERENCE RESERVATIONIST 06/23/2023 9:50 AM CONFERENCE RESERVATIONIST Bella Benavidez MD CHEMISTRY [facility] LABORATORY-[facility]EN[facility]AL LABORATORY [address] [place] [address], from Last 3 Months Advance Directives * Full Code (Latest Code Status on File) Date Activated Date Inactivated Comments 07/06/2023 5:39 AM 07/06/2023 7:46 PM Question Answer Comments Code Status Discussion: Reviewed Preferences * Full Code Date Activated Date Inactivated Comments 06/29/2023 10:24 AM 06/30/2023 6:35 PM Question Answer Comments Code Status Discussion: Reviewed Preferences * Full Code Date Activated Date Inactivated Comments 06/16/2022 11:09 AM 06/16/2022 5:25 PM Question Answer Comments Code Status Discussion: Reviewed Preferences * Full Code Date Activated Date Inactivated Comments 03/04/2022 7:30 AM 03/05/2022 2:28 PM Question Answer Comments Code Status Discussion: Per Existing Order * Full Code Date Activated Date Inactivated Comments 12/15/2015 8:24 AM 12/16/2015 1:04 PM Care Teams Talent Acquisition Lead Relationship Specialty Start Date End Date Emely Henson PA-C [address] [place] [address] PCP - General Emergency Medicine 04/20/23 Paul Soler MD [address] [place] [address] Pulmonology Pulmonary Medicine 09/30/22
== END 2023-09-22 10:21 | disposition home or self-care (01) ==
LOC: RAD 10:21
PROVIDERS: PCP Physician Assistant Medical; Visit Provider Internal Medicine
DX: I35.0 Nonrheumatic aortic (valve) stenosis (principal); I51.7 Cardiomegaly; I34.0 Nonrheumatic mitral (valve) insufficiency
CPT/HCPCS: 93306

== ENCOUNTER 2023-10-04 14:27 | Outpatient (CLI) | payer MEDICARE, BC, SELFPAY ==
--- OUTSIDE RECORDS SUMMARY | 2023-10-04 14:31 | XMS_ITS | Clinical Summary ---
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 Role Phone Emely Henson PA-C Primary Care Provider + [phone] Paul Soler MD Unavailable [phone] Allergies Active Allergy Reactions Criticality Noted Date [...] stenosis 04/20/2023 Coronary artery disease invo lving [place] coronary artery of [place] heart without angina pectoris 04/20/2023 Chronic systolic [...] - 10/22/08: new onset, s/p DCCV in [place], [place] angio with mild CAD - CHADS2 [...] Diabetes mellitus type 2, uncomplicated 06/11/2015 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 04/19/2012 10/15/2013 Overview: Warfarin - started 10/2008; indicated for a fib CHADS2=2 (DM, HTN); goal INR 2.0- 3.0; Anticoagulation monitoring, INR range 2-3 11/20/2010 03/07/2023 Overview: Warfarin - started 10/2008; indicated for a fib CHADS2=2 (DM, HTN) Fever 02/20/2010 05/25/2022 senior living (current) use of anticoagulants 12/25/2008 11/20/2010 Overview: [...] Encounters Date Type Department Care Team Description 10/04/2023 9:35 AM CDT Hospital Encounter [address] [address] Radha Hernandez MD Arrived 10/04/2023 Travel 10/02/2023 9:33 AM CDT - 10/02/2023 11:59 PM CDT Hospital Encounter [address] [address] Radha Hernandez MD 10/02/2023 Travel 09/29/2023 9:33 AM CDT - 09/29/2023 11:59 PM CDT Hospital Encounter [address] [address] Radha Hernandez MD 09/29/2023 Travel 09/27/2023 9:32 AM CDT - 09/27/2023 11:59 PM CDT Hospital Encounter [address] [address] Radha Hernandez MD 09/27/2023 Travel 09/25/2023 9:31 AM CDT - 09/25/2023 11:59 PM CDT Hospital Encounter [address] [address] Radha Hernandez MD 09/25/2023 Telephone [facility] Kristi Bass [address] [place] [address] [place] [address] Floyd Patel MD Results 09/25/2023 Travel 09/22/2023 11:00 AM CDT Ancillary Procedure [facility] [address] [place] [address] 09/22/2023 Travel 09/20/2023 9:35 AM CDT - 09/20/2023 11:59 PM CDT Hospital Encounter [facility] [address] [place] [address] Radha Hernandez MD 09/20/2023 Travel 09/18/2023 9:34 AM CDT - 09/18/2023 11:59 PM CDT Hospital Encounter [facility] [address] [place] [address] Radha Hernandez MD 09/18/2023 Travel 09/15/2023 9:39 AM CDT - 09/15/2023 11:59 PM CDT Hospital Encounter [facility] [address] [place] [address] Radha Hernandez MD 09/15/2023 Travel 09/13/2023 9:32 AM CDT - 09/13/2023 11:59 PM CDT Hospital Encounter [facility] [address] [place] [address] Radha Hernandez MD 09/13/2023 Travel 09/11/2023 9:43 AM CDT - 09/11/2023 11:59 PM CDT Hospital Encounter [facility] [address] [place] [address] Radha Hernandez MD 09/11/2023 Refill [facility] [address] [place] [address] Dexter Lofton MD Refill Request (Tamsulosin) 09/11/2023 Travel 09/08/2023 9:31 AM CDT - 09/08/2023 11:59 PM CDT Hospital Encounter [facility] [address] [place] [address] Radha Hernandez MD 09/08/2023 Travel 09/06/2023 9:37 AM CDT - 09/06/2023 11:59 PM CDT Hospital Encounter [facility] [address] [place] [address] Radha Hernandez MD 09/06/2023 Telephone [facility] [address] [place] [address] Mark Finley MD Abstract (Plan of care ) 09/06/2023 Travel 09/04/2023 9:28 AM CDT - 09/04/2023 11:59 PM CDT Hospital Encounter [facility] [address] [place] [address] Radha Hernandez MD 09/04/2023 Travel 09/01/2023 9:33 AM CDT - 09/01/2023 11:59 PM CDT Hospital Encounter [facility] [address] [place] [address] Radha Hernandez MD 09/01/2023 Travel 08/30/2023 9:36 AM CDT - 08/30/2023 11:59 PM CDT Hospital Encounter [facility] [address] [place] [address] Radha Hernandez MD 08/30/2023 Telephone [facility] [place] [facility] [address] [place] [address] [facility] Referral (Dx: Pancreatic lesion with abnormal weight loss for Dr. Finley) 08/30/2023 Travel 08/29/2023 Lab Requisition [facility] [phone] Emely Henson PA-C 08/28/2023 9:37 AM CDT - 08/28/2023 11:59 PM CDT Hospital Encounter [facility] [address] [place] [address] Radha Hernandez MD 08/28/2023 Travel 08/25/2023 9:37 AM CDT - 08/25/2023 11:59 PM CDT Hospital Encounter [facility] [address] [place] [address] Radha Hernandez MD 08/25/2023 Travel 08/23/2023 9:35 AM CDT - 08/23/2023 11:59 PM CDT Hospital Encounter [facility] [address] [place] [address] Radha Hernandez MD 08/23/2023 Travel 08/21/2023 9:43 AM CDT - 08/21/2023 11:59 PM CDT Hospital Encounter [facility] [address] [place] [address] Radha Hernandez MD 08/21/2023 Travel 08/18/2023 9:37 AM ANGLE SHEAR SET UP OPERATOR - 08/18/2023 11:59 PM ANGLE SHEAR SET UP OPERATOR Hospital Encounter [address] [address] Radha Hernandez MD 08/18/2023 Travel 08/16/2023 2:00 PM ANGLE SHEAR SET UP OPERATOR Office Visit [facility] [address] [place] [address] Ahmet Levy MD CV Vascular Est (6 week follow up; s/p LEFT CUTDOWN FEMORAL ARTERY. U/S scheduled prior. SD 08/15/2023//PCP: Emely Henson PA-C/) 08/16/2023 12:46 PM ANGLE SHEAR SET UP OPERATOR - 08/16/2023 11:59 PM ANGLE SHEAR SET UP OPERATOR Hospital Encounter [facility] [address] [place] [address] Kadie Hendricks PA Garrity, Brian, R.T. (ARRT) PAD (peripheral artery disease) (HC) 08/16/2023 9:37 AM ANGLE SHEAR SET UP OPERATOR - 08/16/2023 12:45 PM ANGLE SHEAR SET UP OPERATOR Hospital Encounter [address] [address] Radha Hernandez MD 08/16/2023 Travel 08/14/2023 9:41 AM ANGLE SHEAR SET UP OPERATOR - 08/14/2023 11:59 PM ANGLE SHEAR SET UP OPERATOR Hospital Encounter [facility] [address] [facility] [place] [address] Radha Hernandez MD 08/14/2023 Travel 08/11/2023 9:36 AM ANGLE SHEAR SET UP OPERATOR - 08/11/2023 11:59 PM ANGLE SHEAR SET UP OPERATOR Hospital Encounter [facility] [address] [place] [address] Radha Hernandez MD 08/11/2023 Travel 08/09/2023 9:44 AM ANGLE SHEAR SET UP OPERATOR - 08/09/2023 11:59 PM ANGLE SHEAR SET UP OPERATOR Hospital Encounter [facility] [address] [place] [address] Radha Hernandez MD 08/09/2023 Travel 08/07/2023 9:39 AM ANGLE SHEAR SET UP OPERATOR - 08/07/2023 11:59 PM ANGLE SHEAR SET UP OPERATOR Hospital Encounter [facility] [address] [place] [address] Radha Hernandez MD 08/07/2023 Travel 08/04/2023 12:00 PM ANGLE SHEAR SET UP OPERATOR Ancillary Procedure [facility] [address] [facility] [place] [address] 08/04/2023 9:37 AM ANGLE SHEAR SET UP OPERATOR - 08/04/2023 11:59 PM ANGLE SHEAR SET UP OPERATOR Hospital Encounter [facility] [address] [place] [address] Radha Hernandez MD 08/04/2023 Travel 08/02/2023 9:35 AM ANGLE SHEAR SET UP OPERATOR - 08/02/2023 11:59 PM ANGLE SHEAR SET UP OPERATOR Hospital Encounter [facility] [address] [place] [address] Radha Hernandez MD 08/02/2023 Travel 07/31/2023 9:36 AM ANGLE SHEAR SET UP OPERATOR - 07/31/2023 11:59 PM ANGLE SHEAR SET UP OPERATOR Hospital Encounter [facility] [address] [place] [address] Radha Hernandez MD 07/31/2023 Travel 07/28/2023 2:30 PM ANGLE SHEAR SET UP OPERATOR Office Visit [facility] [address] [facility] [address] [place] [address] Junior Castellanos MBBS CV Valve Est (INPERSON:VALVE EST: 30DAY S/P TAVR, LABS ECHO CT MORPH PRIOR, NEEDS EKG, KCCQ12, 5MWALK, LETTER GIVEN, HJK//PCP: Emely Henson PA-C) 07/28/2023 2:00 PM ANGLE SHEAR SET UP OPERATOR Orders Only [facility] [address] [facility] [address] [place] [phone] Lab 07/28/2023 9:41 AM ANGLE SHEAR SET UP OPERATOR - 07/28/2023 11:59 PM ANGLE SHEAR SET UP OPERATOR Hospital Encounter [facility] [address] [place] [address] Radha Hernandez MD 07/28/2023 Travel 07/26/2023 9:18 AM ANGLE SHEAR SET UP OPERATOR - 07/26/2023 11:59 PM ANGLE SHEAR SET UP OPERATOR Hospital Encounter [facility] [address] [place] [address] Radha Hernandez MD 07/26/2023 8:00 AM ANGLE SHEAR SET UP OPERATOR Ancillary Procedure [facility] [address] [place] [address] 07/26/2023 Travel 07/24/2023 Orders Only [facility] [address] [place] [address] Deanna Olivas 1 scan: (1-Ord) Final 07/21/2023 9:00 AM ANGLE SHEAR SET UP OPERATOR - 07/21/2023 11:59 PM ANGLE SHEAR SET UP OPERATOR Hospital Encounter [facility] [address] [place] [address] Radha Hernandez MD 07/20/2023 8:36 AM ANGLE SHEAR SET UP OPERATOR - 07/20/2023 11:59 PM ANGLE SHEAR SET UP OPERATOR Hospital Encounter [facility] [address] [place] [address] Junior Castellanos MBBS Severe aortic stenosis 07/20/2023 Travel 07/10/2023 Orders Only [facility] Staff, Other Clinical 1 scan: (1-Ord) 07/10/2023 07/06/2023 4:40 AM ANGLE SHEAR SET UP OPERATOR - 07/06/2023 2:05 PM ANGLE SHEAR SET UP OPERATOR Hospital Encounter [facility] [address] [place] [address] [facility], [facility] Hospitalists Of [facility], Donald Miller MD Mrkvicka, Stevo Arana MD Discharge Disposition: Home Self Care 07/06/2023 Travel from Last 3 Months Immunizations Name Administration Dates Next Due COVID-19 vaccine (Moderna 100mcg/0.5mL) PFTHIERRY 08/19/2020,07/22/2020 COVID-19 vaccine (Pfizer-Bio NTech 30mcg/0.3mL) 12YO+ [...] Comments Blood Pressure 134/78 08/16/2023 1:47 PM ANGLE SHEAR SET UP OPERATOR Pulse 77 08/16/2023 1:47 PM ANGLE SHEAR SET UP OPERATOR Temperature 36.8 ??C (98.2 ??F) 07/06/2023 8:10 AM CS T Respiratory Rate 15 07/20/2023 1:00 PM ANGLE SHEAR SET UP OPERATOR Oxygen Saturation 96% 08/16/2023 1:47 PM ANGLE SHEAR SET UP OPERATOR Inhaled Oxygen Concentration - - Weight 76.2 kg (168 lb) 07/28/2023 1:43 PM ANGLE SHEAR SET UP OPERATOR Height 170.2 cm (5' 7) 07/28/2023 1:43 PM ANGLE SHEAR SET UP OPERATOR Body Mass Index 26.31 07/28/2023 1:43 PM ANGLE SHEAR SET UP OPERATOR Plan of Treatment Upcoming Encounters Date Type Department Care Team (Latest Contact Info) Description 10/06/2023 10:00 AM CDT Appointment [address] [address] 10/09/2023 10:00 AM CDT Appointment [facility] [address] [place] [address] 10/10/2023 8:55 AM CDT Hospital Encounter [facility] [address] [place] [address] [place] [address] [place] [address] 10/10/2023 9:55 AM CDT - 10/10/2023 10:55 AM CDT Surgery [facility] [address] [place] [address] [place] [address] [place] [address] ENDOSCOPIC ULTRASOUND UPPER 10/11/2023 10:00 AM CDT Appointment [facility] [address] [place] [address] 10/13/2023 10:00 AM CDT Appointment [address] [address] 10/23/2023 9:30 AM CDT Office Visit [facility] [address] [facility] [address] [place] [id number] Paul Soler MD [address] [facility] [address] [place] [address] Scheduled Procedures Name Priority Associated Diagnoses Date/Ti fl ENDOSCOPIC ULTRASOUND UPPER Elective pancreas cyst 10/10/2023 9:55 AM CDT Goals Goal Patient Goal Type Associated Problems Recent Progress Patient-Stated? Author BLOOD PRESSURE - MAINTAINS BP less than 140/90 Blood Pressure Arya Felder MD Medical Devices Implanted Type Area Performance Makeup Artist Device Identifier Shelf Expiration Date Model / Serial / Lot [id number] e Canclls Crushed 60cc [[id number]] Implanted:Qty: 1 on 08/22/2006 at [facility] Explanted:at [facility] (Quantity not on file) Spine Allosource 05/17/2011 [id number]# / [id number] / [id number] e Canclls Crushed 30cc [[id number]] Implanted:Qty: 1 on 08/22/2006 at [facility] Explanted:at [facility] (Quantity not on file) Spine [employer]osource 11/16/2010 [id number]# / [id number] / Vesna Dayanara [id number] Implanted:Qty: 6 on 08/22/2006 at [facility] Spine HOWMEDICA [id number] / / Screw Polyaxial 6.5x45mm - [id number] Implanted:Qty: 6 on 08/22/2006 at [facility] Spine [employer] [id number]# / / Marin Dayanara Rad 70mm 108mm Radius - [id number] Implanted:Qty: 2 on 08/22/2006 at [facility] Spine [employer] [id number]# / / Wedge Tag Acufex 3.7mm - [id number] Implanted:Qty: 3 on 08/25/2011 at [facility] Left: Shoulder [employer] [id number]# / / [id number] Screw Cerv Ant 4x15mm Addy Translational Va Slf Drill - [id number] Implanted:Qty: 3 on 03/04/2022 by Donald Alba MD at [facility] N/A: Spine Medtronic Spine/Ortho [id number] / / Plate Cerv 1lvl 25mm Addy Vision Elite Ant - [id number] Implanted:Qty: 1 on 03/04/2022 by Donald Alba MD at [facility] N/A: Spine Medtronic Spine/Ortho [id number] / / [id number] e Matrix 1cc Hollywood Plus Paste Dbm Implanted:Qty: 1 on 03/04/2022 by Donald Alba MD at [facility] Explanted:at [facility] (Quantity not on file) N/A: Spine Medtronic Spine/Ortho 10/12/2023 [id number] / [id number] / [id number] Spinal Graft Block Robert Implanted:Qty: 1 on 03/04/2022 by Donald Alba MD at [facility] Explanted:at [facility] (Quantity not on file) N/A: Spine Medtronic Spine/Ortho 02/24/2024 [id number] / [id number] / Screw Cerv Ant 4x13mm Addy Translational Va Slf Drill - [id number] Implanted:Qty: 1 on 03/04/2022 by Donald Alba MD at [facility] N/A: Spine Medtronic Spine/Ortho [id number] / / Tissue Pericardium 0.8x8cm Photofix Bovine - [id number] Implanted:Qty: 1 on 06/29/2023 by Ahmet Levy MD at [facility] Left: Groin Cryolife Inc 02/03/2025 [id number] / / [id number] Description:CryoLife PhotoFi x Decellularized Bovine Pericardium 0.8cm x 8cm; Lot Number [id number]; Reference Number [id number]; Implanted to the left groin by Dr. Levy on 06/29/2023 Procedures Procedure Name Priority Date/Time Associated Diagnosis Comments SCAN-CARDIAC REHABILITATION 10/04/2023 9:39 AM CDT SCAN-CARDIAC REHABILITATION 10/02/2023 9:39 AM CDT SCAN-CARDIAC REHABILITATION 09/29/2023 9:40 AM CDT SCAN-CARDIAC REHABILITATION 09/27/2023 9:42 AM CDT SCAN-CARDIAC REHABILITATION 09/25/2023 9:41 AM CDT ECHO TTE COMPLETE WO CONTRAST Routine 09/22/2023 12:08 PM CDT Nonrheumatic aortic valve stenosis SCAN-CARDIAC REHABILITATION 09/20/2023 9:50 AM CDT SCAN-CARDIAC [...] AM CDT SCAN-CARDIAC REHABILITATION 08/18/2023 9:43 AM ANGLE SHEAR SET UP OPERATOR US ARTERIAL LOWER EXTREMITY W ARTEM LEFT Routine 08/16/2023 1:36 PM ANGLE SHEAR SET UP OPERATOR PAD (peripheral artery disease) (HC) SCAN-CARDIAC REHABILITATION 08/16/2023 9:51 AM ANGLE SHEAR SET UP OPERATOR SCAN-CARDIAC REHABILITATION 08/16/2023 9:51 AM ANGLE SHEAR SET UP OPERATOR SCAN-CARDIAC REHABILITATION 08/14/2023 9:47 AM ANGLE SHEAR SET UP OPERATOR SCAN-CARDIAC REHABILITATION 08/11/2023 9:42 AM ANGLE SHEAR SET UP OPERATOR SCAN-CARDIAC REHABILITATION 08/09/2023 9:56 AM ANGLE SHEAR SET UP OPERATOR SCAN-CARDIAC REHABILITATION 08/07/2023 9:49 AM ANGLE SHEAR SET UP OPERATOR CT CARDIAC MORPHOLOGY W DUAL READ Routine 08/04/2023 12:28 PM ANGLE SHEAR SET UP OPERATOR Severe aortic stenosis GLUCOSE METER Routine 08/04/2023 10:36 AM ANGLE SHEAR SET UP OPERATOR GLUCOSE METER Routine 08/04/2023 9:53 AM ANGLE SHEAR SET UP OPERATOR SCAN-CARDIAC REHABILITATION 08/04/2023 9:37 AM ANGLE SHEAR SET UP OPERATOR SCAN-CARDIAC REHABILITATION 08/04/2023 9:37 AM ANGLE SHEAR SET UP OPERATOR GLUCOSE METER Routine 08/02/2023 10:36 AM ANGLE SHEAR SET UP OPERATOR SCAN-CARDIAC REHABILITATION 08/02/2023 9:43 AM ANGLE SHEAR SET UP OPERATOR GLUCOSE METER Routine 08/02/2023 9:39 AM ANGLE SHEAR SET UP OPERATOR GLUCOSE METER Routine 07/31/2023 10:46 AM ANGLE SHEAR SET UP OPERATOR SCAN-CARDIAC REHABILITATION 07/31/2023 9:40 AM ANGLE SHEAR SET UP OPERATOR EKG 12 LEAD Routine 07/28/2023 1:39 PM ANGLE SHEAR SET UP OPERATOR Severe aortic stenosis CBC W PLT NO DIFF Routine 07/28/2023 1:3 5 PM ANGLE SHEAR SET UP OPERATOR Severe aortic stenosis BASIC METABOLIC PANEL Routine 07/28/2023 1:35 PM ANGLE SHEAR SET UP OPERATOR Severe aortic stenosis GLUCOSE METER Routine 07/28/2023 10:44 AM ANGLE SHEAR SET UP OPERATOR SCAN-CARDIAC REHABILITATION 07/28/2023 9:45 AM ANGLE SHEAR SET UP OPERATOR GLUCOSE METER Routine 07/26/2023 9:42 AM ANGLE SHEAR SET UP OPERATOR SCAN-CARDIAC REHABILITATION 07/26/2023 9:40 AM ANGLE SHEAR SET UP OPERATOR ECHO TTE LIMITED WO CONTRAST W COLOR W LTD DOPPLER Routine 07/26/2023 8:17 AM ANGLE SHEAR SET UP OPERATOR Severe aortic stenosis EXTENDED HOLTER Routine 07/24/2023 Complete left bundle branch block GLUCOSE METER Routine 07/21/2023 9:43 AM ANGLE SHEAR SET UP OPERATOR SCAN-CARDIAC REHABILITATION 07/21/2023 9:39 AM ANGLE SHEAR SET UP OPERATOR GLUCOSE METER Routine 07/20/2023 10:26 AM ANGLE SHEAR SET UP OPERATOR GLUCOSE METER Routine 07/20/2023 10:02 AM ANGLE SHEAR SET UP OPERATOR SCAN-CARDIAC REHABILITATION 07/20/2023 9:57 AM ANGLE SHEAR SET UP OPERATOR SCAN CORRESP-EKG RESULTS 07/10/2023 3:27 PM ANGLE SHEAR SET UP OPERATOR GLUCOSE METER Timed 07/06/2023 12:13 PM ANGLE SHEAR SET UP OPERATOR US ARTERIAL LOWER EXTREMITY PSEUDOANEURYSM LEFT SHEN 07/06/2023 11:09 AM ANGLE SHEAR SET UP OPERATOR SCAN-CARDIAC STRIP 07/06/2023 8: 05 AM ANGLE SHEAR SET UP OPERATOR GLUCOSE METER Timed 07/06/2023 7:24 AM ANGLE SHEAR SET UP OPERATOR PROTIME-INR STAT 07/06/2023 6:34 AM ANGLE SHEAR SET UP OPERATOR HEMOGLOBIN STAT 07/06/2023 6:34 AM ANGLE SHEAR SET UP OPERATOR SCAN-CARDIAC STRIP 07/06/2023 5: 40 AM ANGLE SHEAR SET UP OPERATOR from Last 3 Months Results * SCAN-CARDIAC REHABILITATION (10/04/2023 9:39 AM CDT) Only the most recent of35 resultswithin the time period is included. Scanner OTHER * ECHO TTE COMPLETE WO CONTRAST (09/22/2023 12:08 PM CDT) AORTIC VALVE MEAN PG 9 mmHg EJECTION FRACTION 65 % LVEDD 4.3 cm MITRAL VALVE MR ERO 34 mm2 Anatomical Region Laterality Modality Ultrasound 09/22/2023 11:2 3 AM CDT Narrative 09/22/2023 12:58 PM CDT ECHOCARDIOGRAM VILMA UGARTE ?Accession#: ?? [id number] : ?1955 68 years Study Date: ?? 09/22/2023 11:23:10 AM Gender: ? BP: ? 125/67 mmHg Height: 168.00 cm ? BSA: ?1.87 m? ? ? Weight: 77.00 kg ?Tech: ? MSR ?Referring MD: Site: ? [facility] Reading Location: Mobile OP Patient Location: Outpatient. Procedure: 2D, Color Doppler and Spectral Doppler. Indication for study: Nonrheumatic aortic valve stenosis Cardiac Rhythm: Regular.Study quality: Fair. Final Impressions: 1. Normal left ventricular size, mildly increased wall thickness, normal global systolic function, calculated EF of 65 %. 2. Right ventricular cavity size is normal, global systolic RV function is normal. 3. Severely enlarged left atrium. 4. The aortic valve is S/P #29mm Evolut Fx THV , no stenosis and trivial regurgitation. The aortic valve peak velocity is 2.0 m/s, the peak gradient is 16 mmHg, and the mean gradient is 9 mmHg. The aortic valve area is 3.05 cm? ? ? with a dimensionless index of 0.89. The stroke volume index is 74.9 ml/m? ? ?. 5. The mitral valve is mitral annular calcification, mild mitral regurgitation. 6. Tricuspid valve is normal. 7. The ascending aorta is dilated with a maximal diameter of 3.9 cm. 8. No pericardial effusion. Chamber Sizes and Function Normal left ventricular size, mildly increased wall thickness, normal global systolic function, calculated EF of 65 %. Left atrial size is severely enlarged. Right ventricular cavity size is normal, global systolic RV function is normal. The right atrium is normal. The pulmonary artery is not well visualized. The sinus of Valsalva is not well visualized. The ascending aorta is dilated. Valves, RV Pressures and Diastolic Function The aortic valve is S/P #29mm Evolut Fx THV , no stenosis and trivial regurgitation. The mitral valve is mitral annular calcification, mild mitral regurgitation. Diastolic function assessment not performed. The tricuspid valve is normal in structure. Tricuspid regurgitation is trace regurgitation. The pulmonic valve is normal. Trace pulmonary regurgitation. Masses, Effusion, Shunts There is no pericardial effusion. The inferior vena cava is normal sized, respiratory size variation greater than 50%. Interatrial septum is not well visualized. MEASUREMENTS AND CALCULATIONS 2-D Measurements and LV Function: LVID (d) 4.3 cm Planimetered EF 65 % LVID (s) 2.6 cm LV FS% (2D) ? 39 % IVS (d) ??1.2 cm LVOT diameter ?? 2.1 cm LVPW (d) 1.2 cm HR ?83 bpm Asc Ao ?? 3.9 cm LA Vol index ?58 ml/m2 ?RV Max 4C (d) ?? 5.3 cm Diastology: Mitral ?Tissue Doppler E Peak 1.4 m/s ??e', Septum ? 0.05 m/s A Peak 1.1 m/s ??e', Lateral ?0.04 m/s E/A ?1.3 ?E/e' Average ?? 31.87 DT ? 287 msec Aortic Valve: Vmax ? 2.0 m/s ??AVINASH (V) ?? 2.85 cm? ? ? VTI ?0.46 m ?? AVINASH (I) ?? 3.05 cm? ? ? LVOT V max 1.7 m/s ??Max PG ?16 mmHg LVOT VTI ?? 0.41 m ?? Mean PG ?? 9 mmHg SV ? 140 ml ?? Dim Index 0.89 SV index ?? 75 ml/m? ? ? CO ?11.6 l/min ?CI ?6.2 l/min/m? ? ? Mitral Valve: MVA ? 2.6 cm? ? ? MR ERO ??0.34 cm? ? ? MV P 1/2 ??83 msec MR Vol. 61 ml MV Mean G 5 mmHg ??MR TVI ??1.78 m MV VTI ?0.63 m Tricuspid Valve and estimated PA pressures: TAPSE 3.3 cm . This study was interpreted by an [facility] accredited facility. CC: HIM ([facility]) [facility]. ??Final ?? Procedure Note Elizabeth Bryant, [facility] - 09/22/2023 ECHOCARDIOGRAM VILMA UGARTE : 1955 68 years Study Date: 09/22/2023 11:23:10 AM Gender: BP: 125/67 mmHg Height: 168.00 cm BSA: 1.87 m? ? ? Weight: 77.00 kg Tech: CHERYL Referring MD: Site: [facility] Reading Location: Mobile OP Patient Location: Outpatient. Procedure: 2D, Color Doppler and Spectral Doppler. Indication for study: Nonrheumatic aortic valve stenosis Cardiac Rhythm: Regular.Study quality: Fair. Final Impressions: 1. Normal left ventricular size, mildly increased wall thickness, normalglobal systolic function, calculated EF of 65 %. 2. Right ventricular cavity size is normal, global systolic RV functionis normal. 3. Severely enlarged left atrium. 4. The aortic valve is S/P #29mm Evolut Fx THV , no stenosis and trivialregurgitation. The aortic valve peak velocity is 2.0 m/s, the peakgradient is 16 mmHg, and the mean gradient is 9 mmHg. The aortic valvearea is 3.05 cm? ? ? with a dimensionless index of 0.89. The stroke volumeindex is 74.9 ml/m? ? ?. 5. The mitral valve is mitral annular calcification, mild mitralregurgitation. 6. Tricuspid valve is normal. 7. The ascending aorta is dilated with a maximal diameter of 3.9 cm. 8. No pericardial effusion. Chamber Sizes and Function Normal left ventricular size, mildly increased wall thickness, normalglobal systolic function, calculated EF of 65 %. Left atrial size isseverely enlarged. Right ventricular cavity size is normal, globalsystolic RV function is normal. The right atrium is normal. The pulmonaryartery is not well visualized. The sinus of Valsalva is not wellvisualized. The ascending aorta is dilated. Valves, RV Pressures and Diastolic Function The aortic valve is S/P #29mm Evolut Fx THV , no stenosis and trivialregurgitation. The mitral valve is mitral annular calcification, mildmitral regurgitation. Diastolic function assessment not performed. Thetricuspid valve is normal in structure. Tricuspid regurgitation is traceregurgitation. The pulmonic valve is normal. Trace pulmonaryregurgitation. Masses, Effusion, Shunts There is no pericardial effusion. The inferior vena cava is normal sized,respiratory size variation greater than 50%. Interatrial septum is notwell visualized. MEASUREMENTS AND CALCULATIONS 2-D Measurements and LV Function: LVID (d) 4.3 cm Planimetered EF 65 % LVID (s) 2.6 cm LV FS% (2D) 39 % IVS (d) 1.2 cm LVOT diameter 2.1 cm LVPW (d) 1.2 cm HR 83 bpm Asc Ao 3.9 cm LA Vol index 58 ml/m2 RV Max 4C (d) 5.3 cm Diastology: Mitral Tissue Doppler E Peak 1.4 m/s e', Septum 0.05 m/s A Peak 1.1 m/s e', Lateral 0.04 m/s E/A 1.3 E/e' Average 31.87 DT 287 msec Aortic Valve: Vmax 2.0 m/s AVINASH (V) 2.85 cm? ? ? VTI 0.46 m AVINASH (I) 3.05 cm? ? ? LVOT V max 1.7 m/s Max PG 16 mmHg LVOT VTI 0.41 m Mean PG 9 mmHg SV 140 ml Dim Index 0.89 SV index 75 ml/m? ? ? CO 11.6 l/min CI 6.2 l/min/m? ? ? Mitral Valve: MVA 2.6 cm? ? ? MR ERO 0.34 cm? ? ? MV P 1/2 83 msec MR Vol. 61 ml MV Mean G 5 mmHg MR TVI 1.78 m MV VTI 0.63 m Tricuspid Valve and estimated PA pressures: TAPSE 3.3 cm . This study was interpreted by an IAC accredited facility. CC: [facility] ([facility]) [facility]. Final Floyd Patel MD ECHO ORD * LAB TRACKING EVENT (08/29/2023 9:20 AM CDT) Other (Other) Client Collect / Unknown 08/29/2023 9:20 AM CDT 08/29/2023 3:34 PM CDT Emely Henson PA-C LAB BILL ONLY [facility] [address] [place] [address], * PERIPHERAL BLD MORPHOLOGY (08/29/2023 9:20 AM CDT) Case Report Special Hematology Report ? Case: [id number] ? Authorizing Provider: ??Emely Henson PA-C ?Collected: ? 08/29/2023 0920 ? Ordering Location: ? [facility] ?Received: ?08/29/2023 1642 ? Pathologist: ? Flip Craven, ? MD ? Specimen: ?Peripheral Blood ? 08/30/2023 11:18 AM CDT [facility] Final Diagnosis PERIPHERAL BLOOD: 1. Moderate normocytic, hypochromic anemia with increased rouleaux formation 2. Mild absolute lymphopenia, nonspecific 3. See comment 08/30/2023 11:18 AM CDT [facility] Comment The morphologic features of the [...] considered, as clinically indicated. 08/30/2023 11:18 AM CDT [facility] Clinical Information 68-year-old male with anemia, anticoagulation and weight loss. Evaluate for abnormal cells. 08/30/2023 11:18 AM CDT [facility] CBC and Differential HEMATOLOGY PARAMETERS Tested at: ??[facility] ? RESULTS ??EXPECTED VALUES WBC: ? 7.8 ?4.5-09m2015/cum m ? RBC: ? 3.41 ? 4.30-5.90 mil/cumm ??DECREASED HGB: ? 8.4 ?13.5-17.5 gm/di ? DECREASED HCT: ? 27.2 ? 37-53% ?DECREASED MCV: ? 80.0 ? 80-100 fl ? NORMOCYTIC MCH: ? 24.6 ? 26-34 pg ?DECREASED MCHC: ?30.9 ? 32-36 gm/dl ? HYPOCHROMIC RDW: ? 14.3 ? 11.5-15.5% ? PLT: ? 260 ?140-560l6373/uL ? Differential ?Absolute (%) ?Expected (%) ?(x10*9/L) ? (x10*9/L) Neutrophils: ?6.4 (82.5) ?1.7-7.0 (42-72%) ? Lymphocytes: ?0.5 (6.4) ? 0.9-2.9 (20-44%) ??DECREASED Monocytes: ?0.5 (6.4) ?<0.9 (0-11%) ? Eosinophils: ?0.3 (3.9) ?<0.5 (0-2%) ? 08/30/2023 11:18 AM CDT [facility] Microscopic Description The final diagnosis is based on microscopic examination of an appropriately stained blood smear. 08/30/2023 11:18 AM T [facility] Additional Information Interpreted at [facility], Central Laboratory - [address] [place] [address] S[facility] [address] [address] 08/30/2023 11:18 AM CDT [facility] Blood (Peripheral Blood) 08/29/2023 9:20 AM CDT 08/29/2023 4:42 PM CDT Emely Henson PA-C HEMATOLOGY Performing Organization Address City/State/[facility] Co de Phone Number [facility] [address] [place] [address], * [place] ARTERIAL LOWER EXTREMITY W ARTEM LEFT (08/16/2023 1:36 PM ANGLE SHEAR SET UP OPERATOR) Anatomical Region Laterality Modality LEG L Ultrasound 08/16/2023 1:11 PM ANGLE SHEAR SET UP OPERATOR Narrative 08/17/2023 7:15 AM ANGLE SHEAR SET UP OPERATOR VASCULAR ULTRASOUND REPORT VILMA UGARTE Accession#: ?? [id number] : ?1955 ?? Study Date: ?? 08/16/2023 1:11:53 PM Age: ?68 years ?? Tech: ? BSG Gender: M ?Referring MD: KADIE HENDRICKS Site: [facility] Study performed: ?Lower extremity duplex [...] Velocity cm/s Phasicity ?? +--------+ + + HULL INSPECTOR DST ? 130 ? multiphasic +--------+ + + ELLIS DST ? 49 ? multiphasic +--------+ + + DPA ? 49 ? multiphasic +--------+ + + + + + + +--------+-----+ LEFT ? Velocity cm/s POST ? Phasicity ?? Stenosis Ratio ? Velocity cm/s ? Phasicity ? + + + + +--------+-----+ TAPE CUTTING MACHINE OPERATOR PRX ? 152 ? multiphasic ? + + + + +--------+-----+ TAPE CUTTING MACHINE OPERATOR DST ? 122 ? multiphasic ? + [...] multiphasic ? + + + + +--------+-----+ HULL INSPECTOR DST ? 61 ? multiphasic ? + [...] ? Index +-----+ +--------+ +-----+ 1.82 ?255 ?HULL INSPECTOR ?255 ? 1.82 +-----+ +--------+ +-----+ 1.82 ?255 ?DPA ?255 ? 1.82 +-----+ +--------+ +-----+ 0.54 ? 76 ? Digit 1 ?86 ? 0.61 +-----+ +--------+ +-----+ Shankar Tavera MD. Electronically signed on 08/17/2023 7:15:06 AM This study was performed and interpreted by a service accredited by the Intersocietal Accreditation Commission (IAC/Vascular), [email or web address].org/vascular Report generated by [employer]. ??Final ?? Procedure Note Shankar Tavera MD - 08/17/2023 VASCULAR ULTRASOUND REPORT VILMA UGARTE : 1955 Study Date: 08/16/2023 1:11:53 PM Age: 68 years Tech: KINDRA Gender: M Referring MD: KADIE HENDRICKS Site: [facility] Study performed: Lower extremity duplex [...] RIGHT Velocity cm/s Phasicity +--------+ + + HULL INSPECTOR DST 130 multiphasic +--------+ + + ELLIS DST 49 multiphasic +--------+ + + DPA 49 multiphasic +--------+ + + + + + + +--------+-----+ LEFT Velocity cm/s POST Phasicity Stenosis Ratio Velocity cm/s Phasicity + + + + +--------+-----+ TAPE CUTTING MACHINE OPERATOR PRX 152 multiphasic + + + + +--------+-----+ TAPE CUTTING MACHINE OPERATOR DST 122 multiphasic + + + + [...] 77 multiphasic + + + + +--------+-----+ HULL INSPECTOR DST 61 multiphasic + + + + [...] Brachial Index +-----+ +--------+ +-----+ 1.82 255 HULL INSPECTOR 255 1.82 +-----+ +--------+ +-----+ 1.82 255 DPA 255 1.82 +-----+ +--------+ +-----+ 0.54 76 Digit 1 86 0.61 +-----+ +--------+ +-----+ Shankar Tavera MD. Electronically signed on 08/17/2023 7:15:06 AM This study was performed and interpreted by a service accredited by theIntersocietal Accreditation Commission (IAC/Vascular),www.[email or web address]/vascular Report generated by [employer]. Final Kadie CHILDERS US * CT CARDIAC MORPHOLOGY W DUAL READ (08/04/2023 12:28 PM ANGLE SHEAR SET UP OPERATOR) Anatomical Region Laterality Modality HEART Computed Tomogra phy Impressions 08/10/2023 7:54 AM ANGLE SHEAR SET UP OPERATOR ?? Normal functioning Evolut FX TAVR valve. [...] for further evaluation. Narrative 08/10/2023 7:54 AM ANGLE SHEAR SET UP OPERATOR Results are automatically released to your [employer]) account once available, in compliance with federal regulations. ??This means that you may see your results before your provider has had a chance to review them. ??Please allow 2-3 business days for your provider to comment on the results. STUDY: POST-TAVR CTA, 08/04/2023 STUDY PARAMETERS: Contrast used: Omnipaque 350, 70 mL; 4.8 mSv radiation dose; Siemens SOMATOM dual source Drive CT. INDICATIONS: Status post Evolut FX valve placement, evaluate for HALT. SCAN QUALITY: ??Good. Leon Broussard NP CT * (ABNORMAL) GLUCOSE METER (08/04/2023 10:36 AM ANGLE SHEAR SET UP OPERATOR) Only the most recent of12 resultswithin the time period is included. Pathologist [facility] GLUCOSE METER 175(H) 65 - 100 mg/dL 08/04/2023 10:37 AM ANGLE SHEAR SET UP OPERATOR [facility] Blood BLOOD SPECIMEN / Unknown 08/04/2023 10:36 AM ANGLE SHEAR SET UP OPERATOR 08/04/2023 10:37 AM ANGLE SHEAR SET UP OPERATOR Radha Hernandez MD CHEMISTRY [facility] [address] [place] [address] * EKG 12 LEAD (07/28/2023 1:39 PM ANGLE SHEAR SET UP OPERATOR) Pathologist [facility] Interpretation Normal sinus rhythm Left bundle branch block Abnormal ECG Ventricular Rate 88 BPM Atrial Rate 88 BPM P-R Interval 182 ms QRS Duration 130 ms QT 398 ms QTc 481 ms P Wilton 86 degrees R Wilton 67 degrees T Wilton 100 degrees 07/28/2023 1:39 PM ANGLE SHEAR SET UP OPERATOR 07/29/2023 11:27 AM ANGLE SHEAR SET UP OPERATOR Leon Broussard [employer]S RESOURCE MANAGER EKG ORD * (ABNORMAL) CBC W PLT NO DIFF (07/28/2023 1:35 PM ANGLE SHEAR SET UP OPERATOR) Pathologist [facility] WHITE BLOOD COUNT 8.7 4.5 - 11.0 thou/cu mm 07/28/2023 2:07 PM ANGLE SHEAR SET UP OPERATOR [facility] TR[facility] LABORATORY RED BLOOD COUNT 3.91(L) 4.30 - 5.90 mil/cu mm 07/28/2023 2:07 PM ANGLE SHEAR SET UP OPERATOR [facility] TR[facility] LAB[facility]ATORY HEMOGLOBIN 10.4(L) 13.5 - 17.5 g/dL 07/28/2023 2:07 PM [facility] TRAL LABORATORY HEMATOCRIT 32.6(L) 37.0 - 53.0 % 07/28/2023 2:07 PM [facility] TRAL LABORATORY MCV 83 80 - 100 fL 07/28/2023 2:07 PM [facility] TR[facility] LABORATORY MCH 26.6 26.0 - 34.0 pg 07/28/2023 2:07 PM [facility] TR[facility] LABORATORY MCHC 31.9(L) 32.0 - 36.0 g/dL 07/28/2023 2:07 PM [facility] TRAL LABORATORY RDW 13.5 11.5 - 15.5 % 07/28/2023 2:07 PM [facility] TR[facility] LABORATORY PLATELET COUNT 374 140 - 440 thou/cu mm 07/28/2023 2:07 PM [facility] TR[facility] LABORATORY MPV 9.6 6.5 - 11.0 fL 07/28/2023 2:07 PM [facility] TR[facility] LABORATORY NRBC 0.0 % 07/28/2023 2:07 PM [facility] LABOR[facility]ORY ABS NRBC 0.0 thou /cu mm 07/28/2023 2:07 PM [facility] LAB[facility]ORY Blood BLOOD SPECIMEN / Unknown Venipuncture / Unknown 07/28/2023 1:35 PM ANGLE SHEAR SET UP OPERATOR 07/28/2023 1:57 PM ANGLE SHEAR SET UP OPERATOR Narrative [facility] - 07/28/2023 2:07 PM ANGLE SHEAR SET UP OPERATOR This procedure was originally ordered at [facility]. Leon Broussard NP HEMATOLOGY [facility] [address] [place] [address], * (ABNORMAL) BASIC METABOLIC PANEL (07/28/2023 1:35 PM ANGLE SHEAR SET UP OPERATOR) SODIUM 139 136 - 145 mmol/L 07/28/2023 2:33 PM [facility] TRAL LABORATORY POTASSIUM 4.6 3.5 - 5.1 mmol/L 07/28/2023 2:33 PM [facility] TRAL LABORATORY CHLORIDE 102 98 - 107 mmol/L 07/28/2023 2:33 PM [facility] LAB[facility] CO2,TOTAL 25 22 - 29 mmol/L 07/28/2023 2:33 PM [facility] LABOR[facility]ORY ANION GAP 12 5 - 18 07/28/2023 2:33 PM [facility] LAB[facility]ORY GLUCOSE 129(H) 70 - 99 mg/dL 07/28/2023 2:33 PM [facility] LAB[facility]ORY CALCIUM 9.6 8.8 - 10.2 mg/dL 07/28/2023 2:33 PM [facility] LAB[facility]ORY BUN 17 8 - 23 mg/dL 07/28/2023 2:33 PM [facility] LAB[facility]ORY CREATININE 0.84 0.70 - 1.20 mg/dL 07/28/2023 2:33 PM [facility] TR[facility] LABORATORY BUN/CREAT RATIO 20 10 - 20 2:33 PM [facility] LABORATORY eGFR >90 >90 mL/min/1.7 3m2 07/28/2023 2:33 PM [facility] [...] Unknown Venipuncture / Unknown 07/28/2023 1:35 PM ANGLE SHEAR SET UP OPERATOR 07/28/2023 1:57 PM [facility] Leon Broussard NP CHEMISTRY [facility] [address] [place] [address], [place] * ECHO TTE LIMITED WO CONTRAST W COLOR W LTD DOPPLER (07/26/2023 8:17 AM ANGLE SHEAR SET UP OPERATOR) AORTIC VALVE MEAN PG 7 mmHg LVEDD 3.8 cm EJECTION FRACTION 70 - 75% Anatomical Region Laterality Modality Ultrasound 07/26/2023 7:48 AM ANGLE SHEAR SET UP OPERATOR Narrative 07/26/2023 8:59 AM ANGLE SHEAR SET UP OPERATOR ECHOCARDIOGRAM VILMA UGARTE ?Accession#: ?? [id number] : ?1955 68 years Study Date: ?? 07/26/2023 7:48:51 AM Gender: M ? BP: ? 130/70 mmHg Height: 170.00 cm ? BSA: ?1.89 m? ? ? Weight: 78.00 kg ?Tech: ? MHR ?Referring MD: LEON BROUSSARD Site: ? [facility] Reading Location: MOBILE OP Patient Location: [...] . This study was interpreted by an [facility] accredited facility. ??Final ?? Procedure Note Annette Elizabeth, [facility] - 07/26/2023 ECHOCARDIOGRAM VILMA UGARTE : 1955 68 years Study Date: 07/26/2023 7:48:51 AM Gender: M BP: 130/70 mmHg Height: 170.00 cm BSA: 1.89 m? ? ? Weight: 78.00 kg Tech: R Referring MD: LEON BROUSSARD Site: [facility] [place] Location: [place] [facility] Patient Location: Outpatient. Procedure: Limited 2D [...] . This study was interpreted by an [facility] accredited facility. Final Leon Broussard NP ECHO ORD * EXTENDED HOLTER (07/24/2023) Leon Broussard NP CARDIAC SERVICES OR D * SCAN CORRESP-EKG RESULTS (07/10/2023 3:27 PM ANGLE SHEAR SET UP OPERATOR) Narrative 07/10/2023 3:27 PM ANGLE SHEAR SET UP OPERATOR Ordered by an unspecified provider. Other Clinical Staff OTHER * US ARTERIAL LOWER EXTREMITY PSEUDOANEURYSM LEFT (07/06/2023 11:09 AM ANGLE SHEAR SET UP OPERATOR) Anatomical Region Laterality Modality LEG L Ultrasound 07/06/2023 11:3 6 AM ANGLE SHEAR SET UP OPERATOR Impressions 07/06/2023 11:36 AM ANGLE SHEAR SET UP OPERATOR 1. 2.7 cm hematoma in the left inguinal region. No sonographic evidence of pseudoaneurysm or arteriovenous fistula. Dictated by Marvin Cheema MD @ 07/06/2023 11:36:57 AM (Electronically Signed) Narrative 07/06/2023 11:36 AM ANGLE SHEAR SET UP OPERATOR For Patients: ??As a result of the [...] US * SCAN-CARDIAC STRIP (07/06/2023 8:05 AM ANGLE SHEAR SET UP OPERATOR) Scanner OTHER * (ABNORMAL) HEMOGLOBIN (07/06/2023 6:34 AM ANGLE SHEAR SET UP OPERATOR) HEMOGLOBIN 8.5(L) 13.5 - 17.5 g/dL 07/06/2023 7:06 AM ANGLE SHEAR SET UP OPERATOR [facility] MCV 85 80 - 100 fL 07/06/2023 7:06 AM ANGLE SHEAR SET UP OPERATOR [facility] Blood BLOOD SPECIMEN / Unknown Venipuncture / Unknown 07/06/2023 6:34 AM ANGLE SHEAR SET UP OPERATOR 07/06/2023 6:55 AM ANGLE SHEAR SET UP OPERATOR Donald Lee MD HEMATOLOGY [facility] [address] [place] [address], * (ABNORMAL) INR AM (07/06/2023 6:34 AM ANGLE SHEAR SET UP OPERATOR) INR 1.6(H) <1.3 07/06/2023 7:06 AM ANGLE SHEAR SET UP OPERATOR [facility] PROTIME 17.8(H) 10.3 - 12.3 sec 07/06/2023 7:06 AM ANGLE SHEAR SET UP OPERATOR [facility] Blood BLOOD SPECIMEN / Unknown Venipuncture / Unknown 07/06/2023 6:34 AM ANGLE SHEAR SET UP OPERATOR 07/06/2023 6:55 AM ANGLE SHEAR SET UP OPERATOR Narrative [facility] - 07/06/2023 7:06 AM ANGLE SHEAR SET UP OPERATOR ?Therapeutic Range 2.0-3.0 for most anticoagulated patients [...] is on [facility]FH. Donald Lee MD HEMATOLOGY [facility] [address] [place] [address], [place] * SCAN-CARDIAC STRIP (07/06/2023 5:40 AM ANGLE SHEAR SET UP OPERATOR) Scanner OTHER from Last 3 Months Advance Directives * [...] 8:24 AM 12/16/2015 1:04 PM Care Teams Typing Office Worker Relationship Specialty Start Date End Date Emely Henson PA-C [address] [place] [address] PCP - General Emergency Medicine 04/20/23 Paul Soler MD [address] [place] [address] Pulmonology Pulmonary Medicine 09/30/22
--- OUTSIDE RECORDS SUMMARY | 2023-10-04 14:31 | XMS_ITS | Continuity of Care Document ---
Author Name Unknown Organization [facility] Address [address] [place] [address] Phone Care Team Providers Care Content Strategist Name Role Phone Sumit Castillo MD Unavailable [...] Date Provider Providers Copied on Encounter [facility], [address], [place], [address], [place] tel:[phone] [facility] No Information 8 Jonathan Arana. [facility], [address], [place], [place], [id number] , [place]. [phone] Office/outpat ient visit,est, low Z [facility], [address], [place], [address], [place] tel:[phone] [facility] No Information Apr-1 0-200 8 Mehbod Amir. [facility], [address] [place] [address] [address], [place], [place], [id number] , [place]. tel:[phone] Referring Provider: Mckinley Cardona, [facility], [place], [address]. tel:[phone] Office/outpat ient visit,est, low [facility], [address] [place], [place] [address], [place], [place], [facility], [place] tel:[phone] [facility] No Information Jan-0 9-200 7 Mehbod Amir. [facility], [address] [place] [address] [address], [place], [place], [id number] , [place]. [phone] Referring Provider: Mckinley Cardona, [facility], [place], [address]. tel:[phone] Office/outpat ient visit,est, low [facility], [address] [place], [place] [address]ite [facility], [place], [address], [place] tel:[phone] [facility] No Information Bong-2 8-200 7 Mehbod Amir. [facility], [address], [place], [place], [id number] , [place]. [phone] Referring Provider: Mckinley Cardona, [facility], [place], [address]. tel:[phone] Z [facility], [address] [place], [place] [address], [place], [place], [facility], [place] tel:[phone] [facility] No Information May-1 0-200 7 Mehbod Amir. [facility], [address], [place], [place], [id number] , [place]. tel:[phone] Referring Provider: Mckinley Cardona [facility], [place], [address]. tel:[phone] Z [facility], [address] [place], [place] [address], [place], [address], [place] tel:[phone] [facility] No Information 1200 7 Mehbod Amir. [facility], [address], [place], [place], [id number] , [place]. tel:[phone] Referring Provider: [facility], [place], [address]. tel:[phone] Office consultation, moderate Z [facility], [address] [place] [address] [address], [place], [address], [place] tel:[phone] [facility] No Information 200 6 Mehbod Amir. [facility], [address], [place], [place], [id number] , [place]. tel:[phone] Referring Provider: Mckinley Cardona [facility], [place], [address]. tel:[phone] Family History Family Member Type Diagnosis Age At Onset No Information Payers Payer name Insurance type Covered libertarian ID Buck avilajaylin(s) [employer] AM [id number] [employer] [id number] Social History Type Description Quantity Date Captured [...]
== END 2023-10-04 14:28 | disposition home or self-care (01) ==
LOC: LKVREF 14:29
PROVIDERS: PCP Physician Assistant Medical; Visit Provider Physician Assistant Medical
DX: D64.9 Anemia, unspecified (principal)
CPT/HCPCS: 83540; 83550

== ENCOUNTER 2023-10-31 09:32 | Outpatient (CLI) | payer MEDICARE, BC, SELFPAY ==
--- OUTSIDE RECORDS SUMMARY | 2023-10-31 09:36 | XMS_ITS | Continuity of Care Document ---
Author Name Unknown Organization Z [facility] Address [address] [place] [address] Phone Care Team Providers Care Social Security Benefits Interviewer Name Role Phone Sumit Castillo MD Unavailable [...] Date Provider Providers Copied on Encounter Z [facility], [address], [place], [address], [place] tel:[phone] [facility] [place] No Information 8 Jonathan Arana. [facility], [address], [place], [place], [id number] , [place]. [phone] Office/outpat ient visit,est, low Z [facility], [address], [place], [address], [place] tel:[phone] [facility] - [place] No Information Apr-1 0-200 8 Mehbod Amir. [facility], [address] [place] [address] [address], [place], [place], [id number] , [place]. tel:[phone] Referring Provider: Mckinley Cardona, [facility], [place], [address]. tel:[phone] Office/outpat ient visit,est, low Z [facility] [place], [address] [place], [place] [address], [place], [place], [facility], [place] tel:[phone] [facility] [place] No Information Jan-0 9-200 7 Mehbod Amir. [facility] [place], [address] [place] [address] [address], [place], [place], [id number] , [place]. [phone] Referring Provider: Mckinley Cardona, [facility] Yadira [facility], [place], [address]. tel:[phone] Office/outpat ient visit,est, low Z [facility], [address] [place], [place] [address]ite [facility], [place], [address], [place] tel:[phone] [facility] No Information Bong-2 8-200 7 Mehbod Amir. [facility], [address], [place], [place], [id number] , [place]. [phone] Referring Provider: Mckinley Cardona, [facility], [place], [address]. tel:[phone] Z [facility], [address] [place], [place] [address], [place], [place], [facility], [place] tel:[phone] [facility] [place] No Information May-1 0-200 7 Mehbod Amir. [facility], [address], [place], [place], [id number] , [place]. tel:[phone] Referring Provider: Mckinley Cardona [facility], [place], [address]. tel:[phone] Z [facility], [address] [place], [place] [address], [place], [address], [place] tel:[phone] [facility] No Information 1200 7 Mehbod Amir. [facility], [address], [place], [place], [id number] , [place]. tel:[phone] Referring Provider: [facility], [place], [address]. tel:[phone] Office consultation, moderate Z [facility], [address] [place] [address] [address], [place], [address], [place] tel:[phone] [facility] [place] No Information 200 6 Mehbod Amir. [facility], [address], [place], [place], [id number] , [place]. tel:[phone] Referring Provider: Mckinley Cardona [facility] Y[facility]ira [facility], [place], [address]. tel:[phone] Family History Family Member Type Diagnosis Age At Onset No Information Payers Payer name Insurance type Covered libertarian ID Buck avilajaylin(s) [employer] AM [id number] [employer] [id number] Social History Type Description Quantity Date Captured [...]
--- OUTSIDE RECORDS SUMMARY | 2023-10-31 09:37 | XMS_ITS | Clinical Summary ---
Author Name Unknown Organization [facility] Address [place], [place] [address] Care Team Providers Care Harp Repairer Name Role Phone Emely Henson PA-C Primary Care Provider + [phone] Paul Soler MD Unavailable [phone] Allergies Active Allergy Reactions Criticality Noted Date Comments Prednisone Arrhythmia 02/20/2010 Patient goes into A-fib after taking Medications Medication Sig Dispensed Refills Start Date End Date Status (u) ACCUCHECK COMFORT CURVE STRIPS use as directed 100 1yr 08/10/2004 Active nitroglycerin (NITROSTAT) 0.4 mg sublingual tabletIndications :High coronary artery calcium score Place 2 tablets under the tongue every 5 minutes if needed for Chest Pain or Other (Specify) (up to 3 doses). 1 Bottle 1 10/06/2015 Active CPAPIndications:O SA (obstructive sleep apnea) CPAP [...] Frequency of use: Daily 1 Device 11 07/01/2020 Active albuterol HFA (ProAir HFA) 90 mcg/actuation inhalerIndication s:Panlobular emphysema (HC) Inhale 1-2 Puffs by mouth every 6 hours if needed for Shortness of Breath 2nd choice or Wheezing 1st choice. 1 Each 1 10/05/2021 Active albuterol-ipratro pium (DUONEB) (2.5-0.5 mg) in 3 mL NEBULIZATION solutionIndicatio ns:Panlobular emphysema (HC) Inhale 3 mL via a nebulizer every 6 hours if needed for Shortness of Breath 2nd choice or Wheezing 1st choice. Use 2-4 times per day. 75 mL 05/10/2022 Active losartan (COZAAR) 100 mg tabletIndications :Essential hypertension Take 1 Tablet (100 mg) by mouth once daily. 90 Tablet 11/16/2022 Active atorvastatin (LIPITOR) 40 mg tabletIndications :Type 2 diabetes mellitus without complication, without long-term current use of insulin (HC),Dyslipidemia Take 1 Tablet (40 mg) by mouth at bedtime. 90 Tablet 3 11/30/2022 Active warfarin (COUMADIN) 7.5 mg tabletIndications :Paroxysmal atrial fibrillation (HC),Anticoagulat ion monitoring, INR range 2-3 Take by mouth 3.75 mg every Sun, Tue, Marcela; 7.5 mg all other days in the evening OR as directed 12/12/2022 Active Additional Information Patient taking differently: Take by mouth 3.75 mg every Sun, Tue, Marcela; 7.5 mg all other days in the evening, Informant: Patient's Recall, Reported on 07/06/2023 glipiZIDE extended-release (GLUCOTROL XL) 10 mg Extended-Release tabletIndications :Type 2 diabetes mellitus without complication, without long-term current use of insulin (HC) Take 1 Tablet (10 mg) by mouth once daily before a meal. 90 Tablet 1 12/18/2022 Active gabapentin (NEURONTIN) 600 mg tabletIndications :Diabetic peripheral neuropathy (HC),Other insomnia Take 1 Tablet (600 mg) by mouth at bedtime 90 Tablet 1 12/18/2022 Active amLODIPine (NORVASC) 10 mg tabletIndications :Essential hypertension TAKE ONE TABLET BY MOUTH DAILY 90 Tablet 01/01/2023 Active citalopram (CELEXA) 20 mg tablet Take 20 mg by mouth every morning. 03/30/2023 Active magnesium 250 mg tab Take 250 [...] two times daily with meals. 60 Tablet 07/01/2023 Active aspirin chewable 81 mg chewable tabletIndications :PAD (peripheral artery disease) (HC) Chew 1 Tablet (81 mg) by mouth once daily with a meal. 06/30/2023 Active acetaminophen (TYLENOL EXTRA STRGTH) 500 mg tablet Take 1,000 mg by mouth once daily in the evening. Max acetaminophen dose: 4000mg in 24 hrs. Active triamcinolone 0.1 % ointment Apply topically to affected area(s) 3 times daily if needed. Active metoprolol tartrate (LOPRESSOR) 25 mg tabletIndications :Paroxysmal atrial fibrillation (HC) Take 0.5 Tablets (12.5 mg) by mouth two times daily. 90 Tablet 3 07/28/2023 Active tamsulosin (FLOMAX) 0.4 mg capsuleIndication s:Lower urinary tract symptoms (LUTS) Take 1 Capsule (0.4 mg) by mouth once daily after a meal. 90 Capsule 09/12/2023 Active montelukast (SINGULAIR) 10 mg tabletIndications :Shortness of breath,Cough, unspecified type,Bronchioliti s Take 1 Tablet (10 mg) by mouth at bedtime. 30 Tablet 11 12/16/2022 10/23/19 24 Discontinue d(*Med complete/Re gimen complete/Le randolph of care change) mometasone-formot doug (Dulera) 200-5 mcg/actuation inhaler Inhale 2 Puffs by mouth 2 times daily if needed. 10/23/19 24 Discontinue d(*Med complete/Re gimen complete/Le randolph of care change) ciprofloxacin HCl (CIPRO) 500 mg tabletIndications :Pancreas cyst Take 1 Tablet (500 mg) by mouth two times daily for 7 days. 14 Tablet 10/10/2023 10/17/19 24 Active Problems Problem Noted Date Diagnosed Date Groin hematoma 07/06/2023 Severe aortic stenosis 04/20/2023 Coronary artery disease invo lving [place] coronary artery of [place] heart without angina pectoris 04/20/2023 Chronic systolic [...] - 10/22/08: new onset, s/p DCCV in [place], Cor angio with mild CAD - CHADS2 [...] Diabetes mellitus type 2, uncomplicated 06/11/2015 03/30/2016 care home (current) use of anticoagulants 04/19/2012 10/15/2013 Overview: [...] Encounters Date Type Department Care Team Description 10/26/2023 9:30 AM CDT Telemedicine [facility] [address] [place] [address] Sourav Mac MD panceas cyst 10/23/2023 9:30 AM CDT Office Visit [facility] [address] [place] [address] [address] [place] [address] Paul Soler MD Follow Up (bronchitis) 10/23/2023 Travel 10/13/2023 9:36 AM CDT - 10/13/2023 11:59 PM CDT Hospital Encounter [facility] [address] [place] [address] Radha Hernandez MD 10/13/2023 Travel 10/11/2023 9:41 AM CDT - 10/11/2023 11:59 PM CDT Hospital Encounter [facility] [address] [place] [address] Radha Hernandez MD 10/11/2023 Travel 10/10/2023 10:25 AM CDT Anesthesia Event [facility] [address] [place] [address] José Manuel Hooker MD 10/10/2023 9:55 AM CDT - 10/10/2023 10:55 AM CDT Surgery [facility] [address] [place] [address] Sourav Mac MD ENDOSCOPIC ULTRASOUND FINE NEEDLE ASPIRATE UPPER 10/10/2023 8:44 AM CDT - 10/10/2023 12:39 PM CDT Hospital Encounter [facility] [address] [place] [address] Sourav Mac MD Pancreas cyst (Primary Dx) Discharge Disposition: Home Self Care 10/09/2023 9:36 AM CDT - 10/09/2023 11:59 PM CDT Hospital Encounter [facility] [address] [place] [address] Radha Hernandez MD 10/09/2023 Travel 10/06/2023 9:33 AM CDT - 10/06/2023 11:59 PM CDT Hospital Encounter [facility] [address] [place] [address] Radha Hernandez MD 10/06/2023 Travel 10/04/2023 9:35 AM CDT - 10/04/2023 11:59 PM CDT Hospital Encounter [facility] [address] [place] [address] Radha Hernandez MD 10/04/2023 Travel 10/02/2023 9:33 AM CDT - 10/02/2023 11:59 PM CDT Hospital Encounter [facility] [address] [place] [address] Radha Hernandez MD 10/02/2023 Travel 09/29/2023 9:33 AM CDT - 09/29/2023 11:59 PM CDT Hospital Encounter [facility] [address] [place] [address] Radha Hernandez MD 09/29/2023 Travel 09/27/2023 9:32 AM CDT - 09/27/2023 11:59 PM CDT Hospital Encounter [facility] [address] [place] [address] Radha Hernandez MD 09/27/2023 Travel 09/25/2023 9:31 AM CDT - 09/25/2023 11:59 PM CDT Hospital Encounter [facility] [address] [facility] [place] [address] Radha Hernandez MD 09/25/2023 Telephone [facility] Kristi Bass [address] [place] [address] [place] [address] Floyd Patel MD Results 09/25/2023 Travel 09/22/2023 11:00 AM CDT Ancillary Procedure [facility] [place] at [address] [address] 09/22/2023 Travel 09/20/2023 9:35 AM CDT - 09/20/2023 11:59 PM CDT Hospital Encounter [facility] [address] [place] [address] Radha Hernandez MD 09/20/2023 Travel 09/18/2023 9:34 AM CDT - 09/18/2023 11:59 PM CDT Hospital Encounter [facility] [address] [place] [address] Radha Hernandez MD 09/18/2023 Travel 09/15/2023 9:39 AM CDT - 09/15/2023 11:59 PM CDT Hospital Encounter [facility] [address] [place] [address] Radha Hernandez MD 09/15/2023 Travel 09/13/2023 9:32 AM CDT - 09/13/2023 11:59 PM CDT Hospital Encounter [facility] [address] [place] [address] Radha Hernandez MD 09/13/2023 Travel 09/11/2023 9:43 AM CDT - 09/11/2023 11:59 PM CDT Hospital Encounter [address] [place] [address] Radha Hernandez MD 09/11/[address] [facility] [address] [place] [address] Dexter Lofton MD Refill Request (Tamsulosin) 09/11/2023 Travel 09/08/2023 9:31 AM CDT - 09/08/2023 11:59 PM CDT Hospital Encounter [facility] [address] [place] [address] Radha Hernandez MD 09/08/2023 Travel 09/06/2023 9:37 AM CDT - 09/06/2023 11:59 PM CDT Hospital Encounter [facility] [address] [place] [address] Radha Hernandez MD 09/06/2023 Telephone [facility] [address], [place] [address] Mark Finley MD Abstract (Plan of care ) 09/06/2023 Travel 09/04/2023 9:28 AM CDT - 09/04/2023 11:59 PM CDT Hospital Encounter [facility] [address] [place] [address] Radha Hernandez MD 09/04/2023 Travel 09/01/2023 9:33 AM CDT - 09/01/2023 11:59 PM CDT Hospital Encounter [facility] [address] [place] [address] Radha Hernandez MD 09/01/2023 Travel 08/30/2023 9:36 AM CDT - 08/30/2023 11:59 PM CDT Hospital Encounter [facility] [address] [place] [address] Radha Hernandez MD 08/30/2023 Telephone [facility] [address], [place] [address] [facility] Referral (Dx: Pancreatic lesion with abnormal weight loss for Dr. Finley) 08/30/2023 Travel 08/29/2023 Lab Requisition [facility] [phone] Emely Henson PA-C 08/28/2023 9:37 AM CDT - 08/28/2023 11:59 PM CDT Hospital Encounter [facility] [address] [place] [address] Radha Hernandez MD 08/28/2023 Travel 08/25/2023 9:37 AM CDT - 08/25/2023 11:59 PM CDT Hospital Encounter [facility] [address] [place] [address] Radha Hernandez MD 08/25/2023 Travel 08/23/2023 9:35 AM CDT - 08/23/2023 11:59 PM CDT Hospital Encounter [facility] [address] [place] [address] Radha Hernandez MD 08/23/2023 Travel 08/21/2023 9:43 AM CDT - 08/21/2023 11:59 PM CDT Hospital Encounter [facility] [address] [place] [address] Radha Hernandez MD 08/21/2023 Travel 08/18/2023 9:37 AM [employer]OM - 08/18/2023 11:59 PM [employer] Hospital Encounter [facility] [address] [place] [address] Radha Hernandez MD 08/18/2023 Travel 08/16/2023 2:00 PM [employer] Office Visit [facility] [address] [place] [address] Ahmet Levy MD CV Vascular Est (6 week follow up; s/p LEFT CUTDOWN FEMORAL ARTERY. U/S scheduled prior. SD 08/15/2023//PCP: Emely Henson PA-C/) 08/16/2023 12:46 PM [employer] - 08/16/2023 11:59 PM [employer] Hospital Encounter [facility] [address] [place] [address] Kadie Hendricks PA Garrity, Brian, RDandreTDandre [facility] PAD (peripheral artery disease) (HC) 08/16/2023 9:37 AM [employer] - 08/16/2023 12:45 PM [employer] Hospital Encounter [facility] [address] [place] [address] Radha Hernandez MD 08/16/2023 Travel 08/14/2023 9:41 AM [employer] - 08/14/2023 11:59 PM [employer] Hospital Encounter [address] [address] Radha Hernandez MD 08/14/2023 Travel 08/11/2023 9:36 AM WE[employer]OM - 08/11/2023 11:59 PM [employer] Hospital Encounter [facility] [address] [place] [address] Radha Hernandez MD 08/11/2023 Travel 08/09/2023 9:44 AM [employer]OM - 08/09/2023 11:59 PM [employer]OM Hospital Encounter [facility] [address] [place] [address] Radha Hernandez MD 08/09/2023 Travel 08/07/2023 9:39 AM WE[employer]Y LOOM - 08/07/2023 11:59 PM WE[employer]Y [employer]OM Hospital Encounter [address] [address] Radha Hernandez MD 08/07/2023 Travel 08/04/2023 12:00 PM [employer]OM Ancillary Procedure [facility] [address] [place] [address] [place] [address] 08/04/2023 9:37 AM [employer] - 08/04/2023 11:59 PM [employer] Hospital Encounter [facility] [address] [place] [address] Radha Hernandez MD 08/04/2023 Travel 08/02/2023 9:35 AM [employer] - 08/02/2023 11:59 PM [employer] Hospital Encounter [facility] [address] [place], [place] [address] Radha Hernandez MD 08/02/2023 Travel from Last 3 Months Immunizations Name [...] 2 Heart Disease Father d 85 yo [place] aft er hip fracture Arthritis Mother Heart [...] PHQ-2 Answer Date Recorded PHQ-2 TOTAL SCORE 0 10/23/2023 Social Connections Answer Date Recorded Frequency of [...] Sign Reading Time Taken Comments Blood Pressure 110/68 10/23/2023 9:16 AM CDT Pulse 68 10/23/2023 9:16 AM CDT Temperature 36.6 ??C (97.8 ??F) 10/10/2023 11:05 AM C DT Respiratory Rate 20 10/23/2023 9:16 AM CDT Oxygen Saturation 98% 10/23/2023 9:16 AM CDT Inhaled Oxygen Concentration - - Weight 76.8 kg (169 lb 6.4 oz) 10/23/2023 9:16 A M CDT Height 170.2 cm (5' 7) 10/23/2023 9:16 AM CDT Body Mass Index 26.53 10/23/2023 9:16 AM CDT Plan of Treatment Not on file Goals Goal Patient Goal Type Associated Problems Recent Progress Patient-Stated? Author BLOOD PRESSURE - MAINTAINS BP less than 140/90 Blood Pressure No Arya Stone MD Medical Devices Implanted Type Area Automation Consultant Device Identifier Shelf Expiration Date Model / Serial / Lot [id number] e Canclls Crushed 60cc [[id number]] Implanted:Qty: 1 on 08/22/2006 at [facility] Explanted:at [facility] (Quantity not on file) Spine Allosource 05/17/2011 [id number]# / [id number] / [id number] e Canclls Crushed 30cc [[id number]] Implanted:Qty: 1 on 08/22/2006 at [facility] Explanted:at [facility] (Quantity not on file) Spine [employer]ource 11/16/2010 [id number]# / [id number] / Vesna Dayanara [id number] - [id number] Implanted:Qty: 6 on 08/22/2006 at [facility] Spine HOWMEDICA [id number]# / / Screw Polyaxial 6.5x45mm - [id number] Implanted:Qty: 6 on 08/22/2006 at [facility] Spine [employer] [id number]# / / Marin Dayanara Rad 70mm 108mm Radius - [id number] Implanted:Qty: 2 on 08/22/2006 at [facility] Spine [employer] [id number]# / / Wedge Tag Acufex 3.7mm - [id number] Implanted:Qty: 3 on 08/25/2011 at [facility] Left: Shoulder [employer] [id number]# / / [id number] Screw Cerv Ant 4x15mm [place] Translational Va Slf Drill - [id number] Implanted:Qty: 3 on 03/04/2022 by Donald Alba MD at [facility] N/A: Spine Medtronic Spine/Ortho [id number] / / Plate Cerv 1lvl 25mm [place] Vision Elite Ant - [id number] Implanted:Qty: 1 on 03/04/2022 by Donald Alba MD at [facility] N/A: Spine Medtronic Spine/Ortho [id number] / / [id number] e Matrix 1cc [place] Plus Paste Dbm Implanted:Qty: 1 on 03/04/2022 by Donald Alba MD at [facility] Explanted:at [facility] (Quantity not on file) N/A: Spine Medtronic Spine/Ortho 10/12/2023 [id number] / [id number] / [id number] Spinal Graft Block Robert Implanted:Qty: 1 on 03/04/2022 by Donald Alba MD at [facility] Explanted:at [facility] (Quantity not on file) N/A: Spine Medtronic Spine/Ortho 02/24/2024 [id number] / [id number] / Screw Cerv Ant 4x13mm [place] Translational Va Slf Drill - [id number] Implanted:Qty: 1 on 03/04/2022 by Donald Alba MD at [facility] N/A: Spine Medtronic Spine/Ortho [id number] / / Tissue Pericardium 0.8x8cm Photofix Bovine - [id number] Implanted:Qty: 1 on 06/29/2023 by Ahmet Levy MD at [facility] Left: Groin Cryolife Inc 02/03/2025 [id number] / / [id number] Description:CryoLife PhotoFi x Decellularized Bovine Pericardium 0.8cm x 8cm; Lot Number [id number]; Reference Number [id number]; Implanted to the left groin by Dr. Levy on 06/29/2023 Procedures Procedure Name Priority Date/Time Associated Diagnosis Comments SCAN-CARDIAC REHABILITATION 10/13/2023 9:57 AM CDT SCAN-CARDIAC REHABILITATION 10/11/2023 9:43 AM CDT PATH FNA CYTOLOGY ASP CYTOLOGY Today 10/10/2023 10:53 AM CDT CEA FLUID Today 10/10/2023 10:53 AM CDT AMYLASE OTHER BODY FLUID Today 10/10/2023 10:53 AM CDT ENDOSCOPY 10/10/2023 10:27 AM CDT ENDOSCOPIC ULTRASOUND FINE NEEDLE ASPIRATE UPPER Elective 10/10/2023 10:21 AM CDT See notes GLUCOSE METER Timed 10/10/2023 9:35 AM CDT SCAN-CARDIAC REHABILITATION 10/09/2023 9:42 AM CDT SCAN-CARDIAC REHABILITATION 10/06/2023 9:41 AM CDT SCAN CORRESP-EKG RESULTS 10/05/2023 2:25 PM CDT SCAN-CARDIAC REHABILITATION 10/04/2023 9:39 AM CDT SCAN-CARDIAC [...] AM CDT SCAN-CARDIAC REHABILITATION 08/18/2023 9:43 AM [employer] US ARTERIAL LOWER EXTREMITY W ARTEM LEFT Routine 08/16/2023 1:36 PM [employer]OM PAD (peripheral artery disease) (HC) SCAN-CARDIAC REHABILITATION 08/16/2023 9:51 AM [employer]OM SCAN-CARDIAC REHABILITATION 08/16/2023 9:51 AM WE[employer]Y [employer]OM SCAN-CARDIAC REHABILITATION 08/14/2023 9:47 AM [employer]OM SCAN-CARDIAC REHABILITATION 08/11/2023 9:42 AM WE[employer]Y LOOM SCAN-CARDIAC REHABILITATION 08/09/2023 9:56 AM [employer]Y [employer]OM SCAN-CARDIAC REHABILITATION 08/07/2023 9:[address] CARDIAC MORPHOLOGY W DUAL READ Routine 08/04/2023 12:28 PM WE[employer]Y LOOM Severe aortic stenosis GLUCOSE METER Routine 08/04/2023 10:36 AM [employer]Y [employer]OM GLUCOSE METER Routine 08/04/2023 9:53 AM WE[employer]ER DOBBY LOOM SCAN-CARDIAC REHABILITATION 08/04/2023 9:37 AM WE[employer]BBY LOOM SCAN-CARDIAC REHABILITATION 08/04/2023 9:37 AM WE[employer]BBY LOOM GLUCOSE METER Routine 08/02/2023 10:36 AM WE[employer]BBY LOOM SCAN-CARDIAC REHABILITATION 08/02/2023 9:43 AM [employer]Y [employer]OM GLUCOSE METER Routine 08/02/2023 9:39 AM [employer]Y [employer]OM from Last 3 Months Results * SCAN-CARDIAC REHABILITATION (10/13/2023 9:57 AM CDT) Only the most recent of34 resultswithin the time period is included. Scanner OTHER * CEA FLUID (10/10/2023 10:53 AM CDT) CEA FLUID 5.3 Not Estab. ng/mL 10/12/2023 1:10 PM CDT [facility] ([facility]) Comment: [employer] Electrochemiluminescence Immunoassay (ECLIA) The reference interval(s) and other method performance specifications have not been established for this body fluid. The test result must be integrated into the clinical context for interpretation. Values obtained with different assay methods or kits cannot be used interchangeably. ??Results cannot be interpreted as absolute evidence of the presence or absence of malignant disease. Cyst Fluid SPECIMEN FROM PANCREAS / Unknown Non-Blood / Unknown 10/10/2023 10:53 AM CDT 10/10/2023 11:13 AM CDT Narrative [facility] ([facility]) - 10/12/2023 1:10 PM CDT Test(s) 640841-NLD, Fluid was developed and its performance characteristics determined by [facility]. It has not been cleared or approved by the Food and Drug Administration. Performed at: ??[address] - [address] ??[id number] Assistant Director Of Security: Bailey Burrows MD, Phone: ??[phone] Sourav Mac MD BODY FLUID [facility] ([facility]) [address] [place] [address], * AMYLASE OTHER BODY FLUID (10/10/2023 10:53 AM CDT) [facility] [place] [address] U/L 10/11/19 24 2:09 PM CDT [facility] ([facility]) Comment: ?: BODY FLUID TYPE : ?AMYLASE ?: ?: : : ?: Lymph ? : ?50 - 83 ?: ?: : : ?: Peritoneal ?: ? : ?: Fluid ? : ?88 - 109 ? : ?: : : ?: Saliva ?: ? : ?: (Mixed Glands) ??: ? [id number] - [id number] ?: ?: : : ? Jose W, Zach V. Reference Intervals ? for Adults and Children 2007. Ninth ? Edition (V9.1) [employer], ? Rotkreuz; Rhea: December 2008. Results confirmed on dilution. Cyst Fluid SPECIMEN FROM PANCREAS / Unknown Non-Blood / Unknown 10/10/2023 10:53 AM CDT 10/10/2023 11:13 AM CDT Narrative [facility] ([facility]) - 10/11/2023 2:09 PM CDT Performed at: ??01 - [facility] [address] [facility], [place], [place] ??[id number] Assistant Director Of Security: Dick Villalpando MD, Phone: ??[phone] Sourav Mac MD BODY FLUID [facility] ([facility]) [facility] [place] [address], [place] * PATH FNA CYTOLOGY ASP CYTOLOGY (10/10/2023 10:53 AM CDT) Case Report Medical Cytology Report ? Case: [id number] ? Authorizing Provider: ??Sourav Mac, ?? Collected: ? 10/10/2023 1053 ? MD ? Ordering Location: ? [facility] ?Received: ?10/10/2023 1230 ? Hospital ? Pathologist: ? Belén Sultana ? MD Peyton ? Specimen: ?Pancreas, Priority: CEA, Amylase ? 10/11/2023 10:44 AM [facility] Final Diagnosis CYST, PANCREAS TAIL, ENDOSCOPIC ULTRASOUND-GUIDED FINE NEEDLE ASPIRATION: Marked acute inflammation; negative for malignancy 10/11/2023 10:44 AM [facility] Clinical Information Mr. Ugarte is a 68 y.o. with a cystic lesion in the pancreatic tail. The endosonographic appearance is consistent with a pancreatic pseudocyst. Fine needle aspiration for fluid performed. 10/11/2023 10:44 AM [facility] Gross Description A) SOURCE: Pancreas, fine needle aspiration The specimen consists of 2 cc of light yellow opaque fluid from which the following is prepared: ? -1 DiffQuik stained slide ? -1 Papanicolaou stained ThinPrep slide ?? 10/11/2023 10:44 AM [facility] Adequacy Assessment 10/11/2023 10:44 AM [facility] Microscopic Description Specimen adequacy: Adequate for interpretation. All slides were reviewed. The microscopic appearance substantiates the diagnosis. 10/11/2023 10:44 AM [facility] Additional Information Cytology is screened at [facility] - [address] [facility] [address], [place] [address] and [facility] - [address], [place] [address] and [facility] - [address] [place] [address] Interpreted at [facility] - [address], [place] [address] 10/11/2023 10:44 AM CDT [facility] Cyst Fluid SPECIMEN FROM PANCREAS / Unknown 10/10/2023 10:53 AM CDT 10/10/2023 12:30 PM CDT Sourav Mac MD PATHOLOGY/CYTO LOGY [facility] [address] [place] [address], [place] * ENDOSCOPY (10/10/2023 10:27 AM CDT) 10/10/2023 10:2 7 AM CDT Narrative Transcriptions Sourav Mac MD - 10/10/2023 11:28 AM CDT [facility] Patient Name: Vilma Ugarte Procedure Date: 10/10/2023 Gender: Male Date of : 1955 Admit Type: Ambulatory Procedure: Upper EUS Proceduralist: Sourav Mac MD - [facility] Referring MD: Sourav Mac MD Indications/Pre-Op Diagnosis: Pancreatic cyst on CT scan Medications: Monitored Anesthesia Care Procedure Description: Risk of bleeding, infection, perforation, pancreatitis, need for surgery, remote chance of and alternatives were discussed, andthe patient gave informed consent. The endoscope [id number] was introduced through the mouth, and advanced to the third part of duodenum. The upper EUS wasaccomplished without difficulty. The patient tolerated the procedure well. Complications: No immediate complications. Estimated Blood Loss & Specimen: Estimated blood loss: none. Specimen collected: Yes and sent to Laboratory Findings: ENDOSCOPIC FINDING: : The entire examined stomach was normal. The examined duodenum was normal. ENDOSONOGRAPHIC FINDING: : There was no sign of significant endosonographic abnormality in the ampulla. No masses were identified. There was no sign of significant endosonographic abnormality in the common bile duct. The maximum diameter of the duct was 5 mm. Nostones, no biliary sludge, ducts of normal caliber and ducts with regular contour were identified. There was no sign of significant endosonographic abnormality in theleft lobe of the liver and in the right lobe of the liver. No focalpathology was identified. Pancreatic parenchymal abnormalities were noted in the entirepancreas. These consisted of diffuse echogenicity, diffusely increased echogenicity, hyperechoic foci, lobularity and shadowing foci. The pancreatic duct had an irregularly contoured endosonographic appearance in the pancreatic head, body of the pancreas and tail ofthe pancreas. The pancreatic duct measured up to 3 mm in diameter in the head , 2 mm in the body, and 1 mm in the tail. The pancreatic duct had hyperechoic headley in the main pancreaticduct. Endosonographic imaging in the entire pancreas showed no mass. An anechoic lesion suggestive of a cyst was identified in thepancreatic tail. It is not in obvious communication with the pancreatic duct.The lesion measured 50 mm in maximal cross-sectional diameter. There wasa single compartment without septae. The outer wall of the lesion was thin. There was no associated mass. There was internal debris withinthe fluid-filled cavity. Diagnostic needle aspiration for fluid was performed. Color Doppler imaging was utilized prior to needlepuncture to confirm a lack of significant vascular structures within theneedle path. One pass was made with the 22 gauge needle using a transgastric approach. The amount of fluid collected was 3 mL. The fluid wascloudy, yellow and thin. Sample(s) were sent for amylase concentration,cytology and CEA. The aortopulmonary region (level 5), subcarinal mediastinum (level 7) and celiac region (level 20) nodes were endosonographically normal.No pathologic lymphadenopathy was identified. Impressions/Post-Op Diagnosis: - Pancreatic parenchymal abnormalities consisting of diffuse echogenicity, diffusely increased echogenicity, hyperechoic foci, lobularity and shadowing foci were noted in the entire pancreas. - The pancreatic duct had an irregularly contoured endosonographic appearance in the pancreatic head, body of the pancreas and tail ofthe pancreas. The pancreatic duct measured up to 3 mm in diameter. - A cystic lesion was seen in the pancreatic tail. Tissue wasobtained from this exam, and results are pending. 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 Fine needle aspiration for fluid performed. Recommendation: - Await cytology results. - Return to endoscopist at appointment to be scheduled. Sourav Mac MD 10/10/2023 11:28:29 AM This report has been signed electronically. Note Initiated On: 10/10/2023 10:27 AM Sourav Mac MD PROCEDURE ORD * (ABNORMAL) GLUCOSE METER (10/10/2023 9:35 AM CDT) Only the most recent of5 resultswithin the time period is included. GLUCOSE METER 141(H) 65 - 100 mg/dL 10/10/2023 9:40 AM CDT [facility] Blood BLOOD SPECIMEN / Unknown 10/10/2023 9:35 AM CDT 10/10/2023 9:40 AM CDT Sourav Mac MD [facility] [address] [place] [address], * SCAN CORRESP-EKG RESULTS (10/05/2023 2:25 PM CDT) Narrative 10/05/2023 2:25 PM CDT Ordered by an unspecified provider. Other Clinical Staff OTHER * ECHO TTE COMPLETE WO CONTRAST (09/22/2023 12:08 PM CDT) AORTIC VALVE MEAN PG 9 mmHg EJECTION FRACTION 65 % LVEDD 4.3 cm MITRAL VALVE MR ERO 34 mm2 Anatomical Region Laterality Modality Ultrasound 09/22/2023 11:2 3 AM CDT Narrative 09/22/2023 12:58 PM CDT ECHOCARDIOGRAM VILMA UGARTE ?Accession#: ?? [id number] : ?1955 68 years Study Date: ?? 09/22/2023 11:23:10 AM Gender: ? BP: ? 125/67 mmHg Height: 168.00 cm ? BSA: ?1.87 m? ? ? Weight: 77.00 kg ?Tech: ? MSR ?Referring MD: Site: ? [facility] Reading Location: Mobile OP Patient Location: [...] This study was interpreted by an [facility] accredited facility. CC: [facility] ([facility]) [facility]. ??Final ?? Procedure Note Elizabeth Bryant, [facility] - 09/22/2023 ECHOCARDIOGRAM VILMA UGARTE : 1955 68 years Study Date: 09/22/2023 11:23:10 AM Gender: BP: 125/67 mmHg Height: 168.00 cm BSA: 1.87 m? ? ? Weight: 77.00 kg Tech: CHERYL Referring MD: Site: [facility] Reading Location: Mobile OP Patient [...] This study was interpreted by an [facility] accredited facility. CC: [facility] ([facility]) [facility]. Final Floyd Patel MD ECHO ORD * LAB TRACKING EVENT (08/29/2023 9:20 AM CDT) Other (Other) Client Collect / Unknown 08/29/2023 9:20 AM CDT 08/29/2023 3:34 PM CDT Emely Henson PA-C LAB BILL ONLY [facility] LAB[facility] [address] [place] [address], * PERIPHERAL BLD MORPHOLOGY (08/29/2023 9:20 AM CDT) Case Report Special Hematology Report ? Case: [id number] ? Authorizing Provider: ??Emely Henson PA-C ?Collected: ? 08/29/2023 0920 ? Ordering Location: ? [facility] ?Received: ?08/29/2023 1642 ? Pathologist: ? Flip Craven, ? MD ? Specimen: ?Peripheral Blood ? 08/30/2023 11:[address] [address] [facility] Final Diagnosis PERIPHERAL BLOOD: 1. Moderate normocytic, hypochromic anemia with increased rouleaux formation 2. Mild absolute lymphopenia, nonspecific 3. See comment 08/30/2023 11:[address] [facility] LABORATORY-C ENTRAL LABORATORY Comment The morphologic features [...] as clinically indicated. 08/30/2023 11:18 AM CDT [facility]-C ENTRAL LABORATORY Clinical Information 68-year-old male with anemia, anticoagulation and weight loss. Evaluate for abnormal cells. 08/30/2023 11:18 AM T [facility]-C [facility] CBC and Differential HEMATOLOGY PARAMETERS Tested at: ??[facility]-Centra l Laboratory ? RESULTS ??EXPECTED VALUES WBC: ? 7.8 ?4.5-00v1064/cum m ? RBC: ? 3.41 ? 4.30-5.90 mil/cumm ??DECREASED HGB: ? 8.4 ?13.5-17.5 gm/di ? DECREASED HCT: ? 27.2 ? 37-53% ?DECREASED MCV: ? 80.0 ? 80-100 fl ? NORMOCYTIC MCH: ? 24.6 ? 26-34 pg ?DECREASED MCHC: ?30.9 ? 32-36 gm/dl ? HYPOCHROMIC RDW: ? 14.3 ? 11.5-15.5% ? PLT: ? 260 ?140-651k7549/uL ? Differential ?Absolute (%) ?Expected (%) ?(x10*9/L) ? (x10*9/L) Neutrophils: ?6.4 (82.5) ?1.7-7.0 (42-72%) ? Lymphocytes: ?0.5 (6.4) ? 0.9-2.9 (20-44%) ??DECREASED Monocytes: ?0.5 (6.4) ?<0.9 (0-11%) ? Eosinophils: ?0.3 (3.9) ?<0.5 (0-2%) ? 08/30/2023 11:18 AM CDT [facility]-C ENTRAL LABORATORY Microscopic Description The final diagnosis is based on microscopic examination of an appropriately stained blood smear. 08/30/2023 11:18 AM CDT [facility]-C [facility] Additional Information Interpreted at [facility] Central Laboratory - [address] [facility] [address] [address] 08/30/2023 11:18 AM CDT [facility] Blood (Peripheral Blood) 08/29/2023 9:20 AM CDT 08/29/2023 4:42 PM CDT Emely Henson PA-C HEMATOLOGY Performing Organization Address City/State/[facility] Co de Phone Number [facility] [address] [place] [address], [place] * US ARTERIAL LOWER EXTREMITY W ARTEM LEFT (08/16/2023 1:36 PM [facility]) Anatomical Region Laterality Modality LEG L Ultrasound 08/16/2023 1:11 PM [facility] Narrative 08/17/2023 7:15 AM [facility] VASCULAR ULTRASOUND REPORT VILMA UGARTE Accession#: ?? [id number] : ?1955 ?? Study Date: ?? 08/16/2023 1:11:53 PM Age: ?68 years ?? Tech: ? BSG Gender: M ?Referring MD: KADIE HENDRICKS Site: [facility] Study performed: ?Lower extremity duplex [...] Velocity cm/s Phasicity ?? +--------+ + + SECURITY INCIDENT RESPONSE ENGINEER DST ? 130 ? multiphasic +--------+ + + ELLIS DST ? 49 ? multiphasic +--------+ + + DPA ? 49 ? multiphasic +--------+ + + + + + + +--------+-----+ LEFT ? Velocity cm/s POST ? Phasicity ?? Stenosis Ratio ? Velocity cm/s ? Phasicity ? + + + + +--------+-----+ MASH GRINDER PRX ? 152 ? multiphasic ? + + + + +--------+-----+ MASH GRINDER DST ? 122 ? multiphasic ? + [...] multiphasic ? + + + + +--------+-----+ SECURITY INCIDENT RESPONSE ENGINEER DST ? 61 ? multiphasic ? + [...] ? Index +-----+ +--------+ +-----+ 1.82 ?255 ?SECURITY INCIDENT RESPONSE ENGINEER ?255 ? 1.82 +-----+ +--------+ +-----+ 1.82 ?255 ?DPA ?255 ? 1.82 +-----+ +--------+ +-----+ 0.54 ? 76 ? Digit 1 ?86 ? 0.61 +-----+ +--------+ +-----+ Shankar Tavera MD. Electronically signed on 08/17/2023 7:15:06 AM This study was performed and interpreted by a service accredited by the [employer]ocietal Accreditation Commission (IAC/Vascular), www.intersocietal.org/vascular Report generated by [employer]. ??Final ?? Procedure Note Shankar Tavera MD - 08/17/2023 VASCULAR ULTRASOUND REPORT VILMA UGARTE : 1955 Study Date: 08/16/2023 1:11:53 PM Age: 68 years Tech: [facility] Gender: M Referring MD: KADIE HENDRICKS Site: [facility] Study performed: Lower extremity duplex [...] RIGHT Velocity cm/s Phasicity +--------+ + + SECURITY INCIDENT RESPONSE ENGINEER DST 130 multiphasic +--------+ + + ELLIS DST 49 multiphasic +--------+ + + DPA 49 multiphasic +--------+ + + + + + + +--------+-----+ LEFT Velocity cm/s POST Phasicity Stenosis Ratio Velocity cm/s Phasicity + + + + +--------+-----+ MASH GRINDER PRX 152 multiphasic + + + + +--------+-----+ MASH GRINDER DST 122 multiphasic + + + + [...] 77 multiphasic + + + + +--------+-----+ SECURITY INCIDENT RESPONSE ENGINEER DST 61 multiphasic + + + + [...] Brachial Index +-----+ +--------+ +-----+ 1.82 255 SECURITY INCIDENT RESPONSE ENGINEER 255 1.82 +-----+ +--------+ +-----+ 1.82 255 DPA 255 1.82 +-----+ +--------+ +-----+ 0.54 76 Digit 1 86 0.61 +-----+ +--------+ +-----+ Shankar Tavera MD. Electronically signed on 08/17/2023 7:15:06 AM This study was performed and interpreted by a service accredited by theIntersocietal Accreditation Commission (IAC/Vascular),www.intersocietal.org/vascular Report generated by [employer]. Final Kadie CHILDERS US * CT CARDIAC MORPHOLOGY W DUAL READ (08/04/2023 12:28 PM [facility]) Anatomical Region Laterality Modality HEART Computed Tomogra phy Impressions 08/10/2023 7:54 AM [facility] ?? Normal functioning Evolut FX TAVR valve. No HALT. Normal leaflet opening. Small amount of low attenuation material in the left coronary sinus. FINDINGS: The coronary arteries are aligned with the Evolut FX leaflets. There is no HALT and the leaflets open normally. Modest left coronary sinus low attenuation material is noted in the sinus and not in the base of the leaflet. Sumit Wright MD JRL/car For Patients: As a result of the [...] for further evaluation. Narrative 08/10/2023 7:54 AM [facility] Results are automatically released to your [employer]) account once available, in compliance with federal [...] SCAN QUALITY: ??Good. Leon Broussard NP CT from Last 3 Months Advance Directives * Full Code (Latest Code Status on File) Date Activated Date Inactivated Comments 10/10/2023 9:20 AM 10/10/2023 2:39 PM Question Answer Comments Code Status Discussion: Unable to Assess Preferences, Provider to review later * Full Code Date Activated Date Inactivated Comments 07/06/2023 5:39 [...] Comments Code Status Discussion: Per Existing Order Care Teams Harp Repairer Relationship Specialty Start Date End Date Emely Henson PA-C [address] [place] [address] PCP - General Emergency Medicine 04/20/23 Paul Soler MD [address] [place] [address] Pulmonology Pulmonary Medicine 09/30/22
--- NOTE | 2023-10-31 10:00 | CT_ITS ---
Patient: VILMA DODSON Facility:?[facility] Patient ID:?[id number] Site Patient ID:?[id number]. Site :?1955 Study:?CT-Chest WITHOUT-10/31/2023 10:09:50 AM Ordering Physician:BEN Final Report: Indication: Abnormal chest pain Technique: Noncontrast CT chest Please note that all CT scans at this facility use dose modulation, iterative reconstruction, and/or weight-based dosing when appropriate to reduce radiation dose to as low as reasonably achievable. Comparison: 04/21/2023 Findings: Subcentimeter lymph nodes are present in the mediastinum. Vascular calcifications noted. Postop changes to the ascending aorta. No pleural effusion. Trace amount of pericardial fluid. No hiatal hernia. Postop changes both shoulders and lower cervical spine. Chronic consolidative opacification within the posterior aspect of the left upper lobe which has increased in size compared to the prior CT chest. Additional masslike opacity now present within the right upper lobe at the inferolateral aspect posteriorly. Discogenic spurring. No vertebral body compression fracture. Chronic changes to the upper sternum. Impression: Masslike areas of consolidation within both upper lobes, increased on the left since the prior study and new on the right since the prior study. No pulmonary edema. Trace pericardial effusion. Please note that all CT scans at this facility use dose modulation, iterative reconstruction, and/or weight-based dosing when appropriate to reduce radiation dose to as low as reasonably achievable. Dictated by Paul Simons MD @ 10/31/2023 11:01:13 AM Signed by:?Paul Simons MD @10/31/2023 11:01:13 AM (Electronic Signature)
== END 2023-10-31 09:33 | disposition home or self-care (01) ==
LOC: CT 09:33
PROVIDERS: PCP Physician Assistant Medical; Visit Provider Internal Medicine
DX: R93.89 Abnormal findings on diagnostic imaging of other specified body structures (principal); R91.8 Other nonspecific abnormal finding of lung field; I31.39 Other pericardial effusion (noninflammatory)
CPT/HCPCS: 71250

== ENCOUNTER 2023-11-23 10:37 | Outpatient (CLI) | payer MEDICARE, BC, SELFPAY | END 2023-11-23 10:38 | disposition home or self-care (01) | PROVIDERS: PCP Physician Assistant Medical; Visit Provider Physician Assistant Medical | DX: D64.9 Anemia, unspecified (principal); N28.9 Disorder of kidney and ureter, unspecified; R63.4 Abnormal weight loss | CPT/HCPCS: 80053; 82043; 82570; 82607; 84165; 87086 ==

== ENCOUNTER 2023-11-27 18:48 | Outpatient (CLI) | payer MEDICARE, BC, SELFPAY ==
--- OUTSIDE RECORDS SUMMARY | 2023-11-27 18:52 | XMS_ITS | Clinical Summary ---
Author Organization [facility] Address [place], [place] [address] Care Team Providers Care Treating Plant Pumper Name Role Phone Emely Henson PA-C Primary Care Provider + [phone] Paul Soler MD Unavailable [phone] Allergies Active Allergy Reactions Criticality Noted Date Comments Prednisone Arrhythmia 02/20/2010 Patient goes into A-fib after taking Medications Medication Sig Dispensed Refills Start Date End Date Status (u) ACCUCHECK COMFORT CURVE STRIPS use as directed 100 1yr 08/10/2004 Active nitroglycerin (NITROSTAT) 0.4 mg sublingual tabletIndications: High coronary artery calcium score Place 2 tablets under the tongue every 5 minutes if needed for Chest Pain or Other (Specify) (up to 3 doses). 1 Bottle 1 10/06/2015 Active CPAPIndications:OS A (obstructive sleep apnea) CPAP machine for home [...] Active albuterol HFA (ProAir HFA) 90 mcg/actuation inhalerIndications :Panlobular emphysema (HC) Inhale 1-2 Puffs by mouth every 6 hours if needed for Shortness of Breath 2nd choice or Wheezing 1st choice. 1 Each 1 10/05/2021 Active albuterol-ipratrop ium (DUONEB) (2.5-0.5 mg) in 3 mL NEBULIZATION solutionIndication s:Panlobular emphysema (HC) Inhale 3 mL via a nebulizer every 6 hours if needed for Shortness of Breath 2nd choice or Wheezing 1st choice. Use 2-4 times per day. 75 mL 05/10/2022 Active losartan (COZAAR) 100 mg tabletIndications: Essential hypertension Take 1 Tablet (100 mg) by mouth once daily. 90 Tablet 11/16/2022 Active atorvastatin (LIPITOR) 40 mg tabletIndications: Type 2 diabetes mellitus without complication, without long-term current use of insulin (HC),Dyslipidemia Take 1 Tablet (40 mg) by mouth at bedtime. 90 Tablet 3 11/30/2022 Active warfarin (COUMADIN) 7.5 mg tabletIndications: Paroxysmal atrial fibrillation (HC),Anticoagulati on monitoring, INR range 2-3 Take by mouth 3.75 mg every Sun, Tue, Marcela; 7.5 mg all other days in the evening OR as directed 12/12/2022 Active Additional Information Patient taking differently: Take by mouth 3.75 mg every Sun, Tue, Marcela; 7.5 mg all other days in the evening, Informant: Patient's Recall, Reported on 07/06/2023 glipiZIDE extended-release (GLUCOTROL XL) 10 mg Extended-Release tabletIndications: Type 2 diabetes mellitus without complication, without long-term current use of insulin (HC) Take 1 Tablet (10 mg) by mouth once daily before a meal. 90 Tablet 1 12/18/2022 Active gabapentin (NEURONTIN) 600 mg tabletIndications: Diabetic peripheral neuropathy (HC),Other insomnia Take 1 Tablet (600 mg) by mouth at bedtime 90 Tablet 1 12/18/2022 Active amLODIPine (NORVASC) 10 mg tabletIndications: Essential hypertension TAKE ONE TABLET BY MOUTH DAILY [...] once daily. Active metFORMIN (GLUCOPHAGE) 1,000 mg tabletIndications: Type 2 diabetes mellitus without complication, without long-term current use of insulin (HC) Take 1 Tablet (1,000 mg) by mouth two times daily with meals. 60 Tablet 07/01/2023 Active aspirin chewable 81 mg chewable tabletIndications: PAD (peripheral artery disease) (HC) Chew 1 Tablet (81 mg) by mouth once daily with a meal. 06/30/2023 Active acetaminophen (TYLENOL EXTRA STRGTH) 500 mg tablet Take 1,000 mg by mouth once daily in the evening. Max acetaminophen dose: 4000mg in 24 hrs. Active triamcinolone 0.1 % ointment Apply topically to affected area(s) 3 times daily if needed. Active metoprolol tartrate (LOPRESSOR) 25 mg tabletIndications: Paroxysmal atrial fibrillation (HC) Take 0.5 Tablets (12.5 mg) by mouth two times daily. 90 Tablet 3 07/28/2023 Active tamsulosin (FLOMAX) 0.4 mg capsuleIndications :Lower urinary tract symptoms (LUTS) Take 1 Capsule (0.4 mg) by mouth once daily after a meal. 90 Capsule 09/12/2023 Active Active Problems Problem Noted Date Diagnosed Date Groin hematoma 07/06/2023 Severe aortic stenosis 04/20/2023 Coronary artery disease invo lving [place] coronary artery of [place] heart without angina pectoris 04/20/2023 Chronic systolic [...] - 10/22/08: new onset, s/p DCCV in [place], [place] angio with mild CAD - CHADS2 [...] Diabetes mellitus type 2, uncomplicated 06/11/2015 03/30/2016 longterm (current) use of anticoagulants 04/19/2012 10/15/2013 Overview: Warfarin - started 10/2008; indicated for a fib CHADS2=2 (DM, HTN); goal INR 2.0- 3.0; Anticoagulation monitoring, INR range 2-3 11/20/2010 03/07/2023 Overview: Warfarin - started 10/2008; indicated for a fib CHADS2=2 (DM, HTN) Fever 02/20/2010 05/25/2022 long term care pharmacist (current) use of anticoagulants 12/25/2008 11/20/2010 Overview: [...] Encounters Date Type Department Care Team Description 11/27/[address] [place] [address] Dexter Lofton MD Refill Request (Atorvastatin) 10/31/2023 Orders Only [facility] Scanner 1 scan: (1-Ord) [facility], CT CHEST WITHOUT CON, 10/31/2023 10/26/2023 9:30 AM CDT Telemedicine [facility] [address] [place] [address] Sourav Mac MD panceas cyst 10/23/2023 9:30 AM CDT Office Visit [facility] [address] [place] [address] [address] [place] [phone] Paul Soler MD Follow Up (bronchitis) 10/23/2023 Travel 10/13/2023 9:36 AM CDT - 10/13/2023 11:59 PM CDT Hospital Encounter [facility] [address] [place] [address] Radha Hernandez MD 10/13/2023 Travel 10/11/2023 9:41 AM CDT - 10/11/2023 11:59 PM CDT Hospital Encounter [facility] [address] [place] [address] Radha Hernandez MD 10/11/2023 Travel 10/10/2023 10:25 AM CDT Anesthesia Event [facility] [address] [place] [address] José Manuel Hooker MD 10/10/2023 9:55 AM CDT - 10/10/2023 10:55 AM CDT Surgery [facility] [address] [place] [address] Sourav Mac MD ENDOSCOPIC ULTRASOUND FINE NEEDLE ASPIRATE UPPER 10/10/2023 8:44 AM CDT - 10/10/2023 12:39 PM CDT Hospital Encounter [facility] [address] [place] [address] Sourav Mac MD Pancreas cyst (Primary Dx) Discharge Disposition: Home Self Care 10/09/2023 9:36 AM CDT - 10/09/2023 11:59 PM CDT Hospital Encounter [facility] [address] [place] [address] Radha Hernandez MD 10/09/2023 Travel 10/06/2023 9:33 AM CDT - 10/06/2023 11:59 PM CDT Hospital Encounter [facility] [address] [place] [address] Radha Hernandez MD 10/06/2023 Travel 10/04/2023 9:35 AM CDT - 10/04/2023 11:59 PM CDT Hospital Encounter [facility] [address] [place] [address] Radha Hernandez MD 10/04/2023 Travel 10/02/2023 9:33 AM CDT - 10/02/2023 11:59 PM CDT Hospital Encounter [facility] [address] [place] [address] Radha Hernandez MD 10/02/2023 Travel 09/29/2023 9:33 AM CDT - 09/29/2023 11:59 PM CDT Hospital Encounter [facility] [address] [place] [address] Radha Hernandez MD 09/29/2023 Travel 09/27/2023 9:32 AM CDT - 09/27/2023 11:59 PM CDT Hospital Encounter [facility] [address] [place] [address] Radha Hernandez MD 09/27/2023 Travel 09/25/2023 9:31 AM CDT - 09/25/2023 11:59 PM CDT Hospital Encounter [facility] [address] [place] [address] Radha Hernandez MD 09/25/2023 Telephone [facility] [address] [facility] [place] [address] Floyd Patel MD Results 09/25/2023 Travel 09/22/2023 11:00 AM CDT Ancillary Procedure [facility] [address] [place] [address] 09/22/2023 Travel 09/20/2023 9:35 AM CDT - 09/20/2023 11:59 PM CDT Hospital Encounter [facility] [address] [place] [address] Radha Hernandez MD 09/20/2023 Travel 09/18/2023 9:34 AM CDT - 09/18/2023 11:59 PM CDT Hospital Encounter [facility] [address] [place] [address] Radha Hernandez MD 09/18/2023 Travel 09/15/2023 9:39 AM CDT - 09/15/2023 11:59 PM CDT Hospital Encounter [facility] [address] [place] [address] Radha Hernandez MD 09/15/2023 Travel 09/13/2023 9:32 AM CDT - 09/13/2023 11:59 PM CDT Hospital Encounter [facility] [address] [place] [address] Radha Hernandez MD 09/13/2023 Travel 09/11/2023 9:43 AM CDT - 09/11/2023 11:59 PM CDT Hospital Encounter [facility] [address] [place] [address] Radha Hernandez MD 09/11/2023 Refill [facility] [address] [place] [address] Dexter Lofton MD Refill Request (Tamsulosin) 09/11/2023 Travel 09/08/2023 9:31 AM CDT - 09/08/2023 11:59 PM CDT Hospital Encounter [facility] [address] [place] [address] Radha Hernandez MD 09/08/2023 Travel 09/06/2023 9:37 AM CDT - 09/06/2023 11:59 PM CDT Hospital Encounter [facility] [address] [facility] [place] [address] Radha Hernandez MD 09/06/2023 Telephone [facility] [address] [place] [address] Mark Finley MD Abstract (Plan of care ) 09/06/2023 Travel 09/04/2023 9:28 AM CDT - 09/04/2023 11:59 PM CDT Hospital Encounter [facility] [address] [place] [address] Radha Hernandez MD 09/04/2023 Travel 09/01/2023 9:33 AM CDT - 09/01/2023 11:59 PM CDT Hospital Encounter [facility] [address] [place] [address] Radha Hernandez MD 09/01/2023 Travel 08/30/2023 9:36 AM CDT - 08/30/2023 11:59 PM CDT Hospital Encounter [facility] [address] [place] [address] Radha Hernandez MD 08/30/2023 Telephone [facility] [address] [place] [address] Merged With [facility] Referral (Dx: Pancreatic lesion with abnormal weight loss for Dr. Finley) 08/30/2023 Travel 08/29/2023 Lab Requisition [facility] [phone] Emely Henson PA-C 08/28/2023 9:37 AM CDT - 08/28/2023 11:59 PM CDT Hospital Encounter [facility] [address] [place] [address] Radha Hernandez MD 08/28/2023 Travel from Last 3 Months Immunizations Name Administration Dates Next Due COVID-19 vaccine (Moderna 100mcg/0.5mL) PF MDV 08/19/2020,07/22/2020 COVID-19 vaccine (Pfizer-Bio NTech 30mcg/0.3mL) [...] 2 Heart Disease Father d 85 yo [place] aft er hip fracture Arthritis Mother Heart [...] Felder MD Medical Devices Implanted Type Area Director Of Accounting Device Identifier Shelf Expiration Date Model / Serial / Lot [id number] e Canclls Crushed 60cc [[id number]] Implanted:Qty: 1 on 08/22/[address] [facility] Explanted:at [facility] (Quantity not on file) Spine Allosource 05/17/2011 [id number]# / [id number] / [id number] e Canclls Crushed 30cc [[id number]] Implanted:Qty: 1 on 08/22/[address] [facility] Explanted:at [facility] (Quantity not on file) Spine Allosource 11/16/2010 [id number]# / [id number] / Vesna Dayanara [id number] - [id number] Implanted:Qty: 6 on 08/22/[address] [facility] Spine HOWMEDICA [id number]# / / Screw Polyaxial 6.5x45mm - [id number] Implanted:Qty: 6 on 08/22/[address] [facility] Spine HOWMEDICA [id number]# / / Marin Dayanara Rad 70mm 108mm Radius - [id number] Implanted:Qty: 2 on 08/22/[address] [facility] Spine HOWMEDICA [id number]# / / Wedge Tag Acufex 3.7mm - [id number] Implanted:Qty: 3 on 08/25/[address] [facility] Left: Shoulder [employer] [id number]# / / [id number] Screw Cerv Ant 4x15mm Elrod Translational Va Slf Drill - [id number] Implanted:Qty: 3 on 03/04/2022 by Donald Alba MD at [facility] N/A: Spine Medtronic Spine/Ortho [id number] / / Plate Cerv 1lvl 25mm Elrod Vision Elite Ant - [id number] Implanted:Qty: 1 on 03/04/2022 by Donald Alba MD at [facility] N/A: Spine Medtronic Spine/Ortho [id number] / / [id number] e Matrix 1cc Coke Plus Paste Dbm Implanted:Qty: 1 on 03/04/2022 by Donald Alba MD at [facility] Explanted:at [facility] (Quantity not on file) N/A: Spine Medtronic Spine/Ortho 10/12/2023 [id number] / [id number] / [id number] Spinal Graft Block Robert Implanted:Qty: 1 on 03/04/2022 by Donald Alba MD at [facility] Explanted:at [facility] (Quantity not on file) N/A: Spine Medtronic Spine/Ortho 02/24/2024 [id number] / [id number] / Screw Cerv Ant 4x13mm Elrod Translational Va Slf Drill - [id number] Implanted:Qty: 1 on 03/04/2022 by Donald Alba MD at [facility] N/A: Spine Medtronic Spine/Ortho [id number] / / Tissue Pericardium 0.8x8cm Photofix Bovine - [id number] Implanted:Qty: 1 on 06/29/2023 by Ahmet Levy MD at 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 Levy on 06/29/2023 Procedures Procedure Name Priority Date/Time Associated Diagnosis Comments SCAN-CT INTERPRETATION 12:00 AM CDT SCAN-CARDIAC REHABILITATION 10/13/2023 9:57 AM CDT SCAN-CARDIAC [...] CDT SCAN-CARDIAC REHABILITATION 08/28/2023 9:45 AM CDT from Last 3 Months Results * SCAN-CT INTERPRETATION (10/31/2023 12:00 AM CDT) Anatomical Region Laterality Modality Other Scanner OTHER * SCAN-CARDIAC REHABILITATION (10/13/2023 9:57 AM CDT) Only the most recent of20 resultswithin the time period is included. Scanner OTHER * CEA FLUID (10/10/2023 10:53 AM CDT) CEA FLUID 5.3 Not Estab. ng/mL 10/12/2023 1:10 PM CDT [facility] Comment: [facility] Electrochemiluminescence [...] AM CDT 10/10/2023 11:13 AM CDT Narrative [facility] ([facility]) - 10/12/2023 1:10 PM CDT Test(s) 667134-JWX, Fluid was developed and its performance characteristics determined by [facility]. It has not been cleared or approved by the Food and Drug Administration. Performed at: ??01 - [address] ??[id number] Ornamental Machine Operator: Bailey Burrows MD, Phone: ??[phone] Sourav Mac MD BODY FLUID [facility] ([facility]) [address] [place] [address], * AMYLASE OTHER BODY FLUID (10/10/2023 10:53 AM CDT) Amylase [place] [address] U/L 10/11/19 24 2:[address] [facility] ([facility]) Comment: ?: BODY FLUID TYPE : ?AMYLASE ?: ?: : : ?: Lymph ? : ?50 - 83 ?: ?: : : ?: Peritoneal ?: ? : ?: Fluid ? : ?88 - 109 ? : ?: : : ?: Saliva ?: ? : ?: (Mixed Glands) ??: ? [id number] - [id number] ?: ?: : : ? [place] W, [place] V. Reference Intervals ? for Adults and Children 2007. Nin ? Edition (V9.1) [employer], ? [place]; [place]: December 2008. Results confirmed on dilution. Cyst Fluid SPECIMEN FROM PANCREAS / Unknown Non-Blood / Unknown 10/10/2023 10:53 AM CDT 10/10/2023 11:13 AM CDT Narrative [facility] ([facility]) - 10/11/2023 2:09 PM CDT Performed at: ??01 - [facility] [address] [place], [place] ??[id number] Ornamental Machine Operator: Dick Villalpando MD, Phone: ??[phone] Sourav Mac MD BODY FLUID [facility] ([facility]) [address] [place] [address], * PATH [facility] CYTOLOGY ASP CYTOLOGY (10/10/2023 10:53 AM CDT) Pathologist [facility] Case Report Medical Cytology Report ? Case: [id number] ? Authorizing Provider: ??Estefania, Sourav Grullon, ?? Collected: ? 10/10/2023 1053 ? MD ? Ordering Location: ? [facility] ?Received: ?10/10/2023 1230 ? Hospital ? Pathologist: ? Belén Sultana ? MD Peyton ? Specimen: ?Pancreas, Priority: CEA, Amylase ? 10/11/2023 10:44 AM [facility] Final Diagnosis CYST, PANCREAS TAIL, ENDOSCOPIC ULTRASOUND-GUIDED FINE NEEDLE ASPIRATION: Marked acute inflammation; negative for malignancy 10/11/2023 10:44 AM [facility] Clinical Information Mr. Ugarte is a 68 y.o. with a cystic lesion in the pancreatic tail. The endosonographic appearance is consistent with a pancreatic pseudocyst. Fine needle aspiration for fluid performed. 10/11/2023 10:44 AM [facility] Gross Description A) SOURCE: Pancreas, fine needle aspiration The specimen consists of 2 cc of light yellow opaque fluid from which the following is prepared: ? -1 DiffQuik stained slide ? -1 Papanicolaou stained ThinPrep slide ?? 10/11/2023 10:44 AM [facility] Adequacy Assessment 10/11/2023 10:44 AM [facility] Microscopic Description Specimen adequacy: Adequate for interpretation. All slides were reviewed. The microscopic appearance substantiates the diagnosis. 10/11/2023 10:44 AM CDT [facility]C ENTRAL LABORATORY Additional Information Cytology is screened at [facility] Laboratory - [address], [place] [address] and [facility] - [address], [place] [address] and [facility] - [address] [place] [address] Interpreted at [facility] - [address], [place] [address] 10/11/2023 10:44 AM CDT [facility]- ENTRAL LABORATORY Cyst Fluid SPECIMEN FROM PANCREAS / Unknown 10/10/2023 10:53 AM CDT 10/10/2023 12:30 PM CDT Sourav Mac MD PATHOLOGY/CYTO LOGY Performing Organization Address City/State/[facility] Co de Phone Number [facility] [address] [place] [address], [place] * ENDOSCOPY (10/10/2023 10:27 AM CDT) 10/10/2023 10:2 7 AM CDT Narrative Transcriptions Sourav Mac MD - 10/10/2023 11:28 AM CDT [facility] Patient Name: Vilma Ugarte Procedure Date: 10/10/2023 Gender: Male Date of : 1955 Admit Type: Ambulatory Procedure: Upper EUS Proceduralist: Sourav Mac MD - [facility] Referring MD: Sourav Mac MD Indications/Pre-Op Diagnosis: Pancreatic cyst on CT scan Medications: Monitored Anesthesia Care Procedure Description: Risk of bleeding, infection, perforation, pancreatitis, need for surgery, remote chance of and alternatives were discussed, andthe patient gave informed consent. The endoscope [id number] was introduced through the mouth, and advanced [...] the tail. The pancreatic duct had hyperechoic headely in the main pancreaticduct. Endosonographic imaging in [...] (ABNORMAL) GLUCOSE METER (10/10/2023 9:35 AM CDT) GLUCOSE METER 141(H) 65 - 100 mg/dL 10/10/2023 9:40 AM CDT [facility] Blood BLOOD SPECIMEN / Unknown 10/10/2023 9:35 AM CDT 10/10/2023 9:40 AM CDT Sourav Mac MD CHEMISTRY [facility] [address] [place] [address], * SCAN CORRESP-EKG RESULTS (10/05/2023 2:25 PM [...] PM CDT ECHOCARDIOGRAM VILMA UGARTE ?Accession#: ?? [id number] : ?1955 68 years Study Date: ?? 09/22/2023 11:23:10 AM Gender: ? BP: ? 125/67 mmHg Height: 168.00 cm ? BSA: ?1.87 m? ? ? Weight: 77.00 kg ?Tech: ? MSR ?Referring MD: Site: ? [facility] Reading Location: Mobile OP Patient Location: [...] . This study was interpreted by an [facility] accredited facility. CC: [facility] ([facility]) [facility]. ??Final ?? Procedure Note Elizabeth Bryant, [facility] - 09/22/2023 ECHOCARDIOGRAM VILMA UGARTE : 1955 68 years Study Date: 09/22/2023 11:23:10 AM Gender: BP: 125/67 mmHg Height: 168.00 cm BSA: 1.87 m? ? ? Weight: 77.00 kg Tech: CHERYL Referring MD: Site: [facility] Reading Location: Mobile OP Patient [...] interpreted by an [facility] accredited facility. CC: HIM ([facility]) [facility]. Final Floyd Patel MD ECHO ORD * LAB TRACKING EVENT (08/29/2023 9:20 AM CDT) Other (Other) Client Collect / Unknown 08/29/2023 9:20 AM CDT 08/29/2023 3:34 PM CDT Emely Henson PA-C LAB BILL ONLY [facility] [address] [place] [address], * PERIPHERAL BLD MORPHOLOGY (08/29/2023 9:20 AM CDT) Case Report Special Hematology Report ? Case: [id number] ? Authorizing Provider: ??Emely Henson PA-C ?Collected: ? 08/29/2023 0920 ? Ordering Location: ? [facility] ?Received: ?08/29/2023 1642 ? Pathologist: ? Flip Craven, ? MD ? Specimen: ?Peripheral Blood ? 08/30/2023 11:18 AM CDT [facility] EN[facility]AT[facility] Final Diagnosis PERIPHERAL BLOOD: 1. Moderate normocytic, hypochromic anemia with increased rouleaux formation 2. Mild absolute lymphopenia, nonspecific 3. See comment 08/30/2023 11:18 AM CDT [facility] Comment The morphologic features [...] considered, as clinically indicated. 08/30/2023 11:18 AM T [facility] Clinical Information 68-year-old male with anemia, anticoagulation and weight loss. Evaluate for abnormal cells. 08/30/2023 11:18 AM T [facility] CBC and Differential HEMATOLOGY PARAMETERS Tested at: ??[facility] ? RESULTS ??EXPECTED VALUES WBC: ? 7.8 ?4.5-10s9240/cum m ? RBC: ? 3.41 ? 4.30-5.90 mil/cumm ??DECREASED HGB: ? 8.4 ?13.5-17.5 gm/di ? DECREASED HCT: ? 27.2 ? 37-53% ?DECREASED MCV: ? 80.0 ? 80-100 fl ? NORMOCYTIC MCH: ? 24.6 ? 26-34 pg ?DECREASED MCHC: ?30.9 ? 32-36 gm/dl ? HYPOCHROMIC RDW: ? 14.3 ? 11.5-15.5% ? PLT: ? 260 ?140-039x9616/uL ? Differential ?Absolute (%) ?Expected (%) ?(x10*9/L) ? (x10*9/L) Neutrophils: ?6.4 (82.5) ?1.7-7.0 (42-72%) ? Lymphocytes: ?0.5 (6.4) ? 0.9-2.9 (20-44%) ??DECREASED Monocytes: ?0.5 (6.4) ?<0.9 (0-11%) ? Eosinophils: ?0.3 (3.9) ?<0.5 (0-2%) ? 08/30/2023 11:18 AM CDT [facility] Microscopic Description The final diagnosis is based on microscopic examination of an appropriately stained blood smear. 08/30/2023 11:18 AM CDT [facility] Additional Information Interpreted at [facility], Central Laboratory - [address] [place] [address] 08/30/2023 11:18 AM CDT [facility] ENTRMS LABORATORY Blood (Peripheral Blood) 08/29/2023 9:20 AM CDT 08/29/2023 4:42 PM CDT Emely Henson PA-C HEMATOLOGY [facility] [address] [place] [address], from Last 3 Months Advance Directives * [...] Status Discussion: Per Existing Order Care Teams Treating Plant Pumper Relationship Specialty Start Date End Date Emely Henson PA-C [address] [place] [address] PCP - General Emergency Medicine 04/20/23 Paul Soler MD [address] [place] [address] Pulmonology Pulmonary Medicine 09/30/22
== END 2023-11-27 18:49 | disposition home or self-care (01) ==
LOC: LKVREF 18:49
PROVIDERS: PCP Physician Assistant Medical; Visit Provider Physician Assistant Medical
DX: R63.4 Abnormal weight loss (principal); D64.9 Anemia, unspecified
CPT/HCPCS: 86334

== ENCOUNTER 2023-11-28 23:56 | Emergency (ER) | payer MEDICARE, BC, SELFPAY ==
--- NOTE | 2023-11-29 | ED_ITS ---
HPI - Back Pain/Injury General Time Seen by Provider: 00:00 Date Seen: 11/29/23 Chief Complaint: Back Injury/Pain Stated Complaint: Lower L back pain Time Seen by Provider: 11/28/23 23:59 Source: patient, RN notes reviewed and old records reviewed Mode of arrival: ambulatory Limitations: no limitations History of Present Illness HPI Narrative: 60-year-old male who presents today with back pain. Patient has had about a week of left-sided back pain but worse tonight. No urinary symptoms, nausea but no vomiting. No urinary symptoms. Has not taken anything for his pain. Pain is constant, not necessarily worse with movement. Seen by primary care doctor last week for this. Related Data Home Medications ?Medication ?Instructions ?Recorded ?Confirmed atorvastatin 40 mg tablet 40 mg PO HS 01/13/22 11/29/23 tamsulosin 0.4 mg capsule 0.4 mg PO DAILY 01/13/22 11/29/23 albuterol sulfate 90 mcg/actuation 1 - 2 inh inhalation Q6H PRN 06/27/22 11/29/23 aerosol inhaler ipratropium 0.5 mg-albuterol 3 mg 3 ml inhalation Q6H PRN 06/27/22 11/29/23 (2.5 mg base)/3 mL nebulization soln acetaminophen 500 mg tablet 500 mg PO Q4H PRN 01/11/23 11/29/23 nitroglycerin 0.4 mg sublingual 0.4 mg sublingual Q5M PRN 01/11/23 11/29/23 tablet betamethasone dipropionate 0.05 % 1 applic topical BID 07/20/23 11/29/23 topical cream metoprolol tartrate 25 mg tablet 12.5 mg PO BID 08/15/23 11/29/23 montelukast 10 mg tablet 10 mg PO QPM 11/29/23 11/29/23 Previous Rx's ?Medication ?Instructions ?Recorded gabapentin 600 mg tablet 600 mg PO QPM #90 tabs 06/07/23 glipizide 10 mg tablet, extended 10 mg PO DAILY #90 tabs 06/07/23 release 24 hr metformin 1,000 mg tablet 1,000 mg PO BID #180 tabs 06/26/23 amlodipine 10 mg tablet 10 mg PO DAILY #90 tabs 08/10/23 omeprazole 20 mg capsule,delayed 20 mg PO QDAY #90 caps 08/22/23 release citalopram 20 mg tablet 20 mg PO QDAY #90 tabs 09/12/23 warfarin 7.5 mg tablet 7.5 mg PO DAILY #90 tabs 10/18/23 ferrous sulfate 324 mg (65 mg 324 mg PO QDAY #90 tabs 11/23/23 iron) tablet,delayed release empagliflozin 10 mg tablet 10 mg PO QAM #90 tabs 11/26/23 (Jardiance) losartan 100 mg tablet 100 mg PO DAILY #90 tabs 11/28/23 Allergies Allergy/AdvReac Type Severity Reaction Status Date / Time No Known Drug Allergies Allergy Verified 11/29/23 00:03 [facility] Medical History (Updated 11/29/23 @ 00:48 by Dwight Nicholson MD) Normal coronary angiogram History of transcatheter aortic valve replacement (TAVR) (~06/29/23) ?Z95.2 - Presence of prosthetic heart valve (ICD-10) Nausea and vomiting (07/07/11) ?R11.2 - Nausea with vomiting, unspecified (ICD-10) Change in vision ?H53.9 - Unspecified visual disturbance (ICD-10) Dyslipidemia ?E78.5 - Hyperlipidemia, unspecified (ICD-10) Impotence, organic ?N52.9 - Male erectile dysfunction, unspecified (ICD-10) Hypermetropia ?H52.00 - Hypermetropia, unspecified eye (ICD-10) Presbyopia ?H52.4 - Presbyopia (ICD-10) Regular astigmatism ?H52.229 - Regular astigmatism, unspecified eye (ICD-10) Essential (primary) hypertension ?I10 - Essential (primary) hypertension (ICD-10) ASHD (arteriosclerotic heart disease) ?I25.10 - Atherosclerotic heart disease of three affiliated coronary artery without angina pectoris (ICD-10) Paroxysmal atrial fibrillation ?I48.0 - Paroxysmal atrial fibrillation (ICD-10) Rotator cuff tear ?M75.100 - Unspecified rotator cuff tear or rupture of unspecified shoulder, not specified as traumatic (ICD-10) Systolic murmur ?R01.1 - Cardiac murmur, unspecified (ICD-10) Liver cyst ?K76.89 - Other specified diseases of liver (ICD-10) Rupture of left long head biceps tendon ?S46.112A - Strain of muscle, fascia and tendon of long head of biceps, left arm, initial encounter (ICD-10) Partial tear of subscapularis tendon ?S46.819A - Strain of other muscles, fascia and tendons at shoulder and upper arm level, unspecified arm, initial encounter (ICD-10) Unspecified rotator cuff tear or rupture of left shoulder, not specified as traumatic ?M75.102 - Unspecified rotator cuff tear or rupture of left shoulder, not specified as traumatic (ICD-10) PAOLO (obstructive sleep apnea) (~11/20/18) ?G47.33 - Obstructive sleep apnea (adult) (pediatric) (ICD-10) Bicuspid aortic valve (~03/24/20) ?Q23.1 - Congenital insufficiency of aortic valve (ICD-10) Stenosis of cervical spine ?M48.02 - Spinal stenosis, cervical region (ICD-10) Surgical History (Updated 11/23/23 @ 09:38 by Emely Henson PA-C) History of ankle surgery (~06/2022) ?Z98.890 - Other specified postprocedural states (ICD-10) Status post transcatheter aortic valve replacement (~06/29/23) ?Z95.2 - Presence of prosthetic heart valve (ICD-10) History of surgery on right wrist (12/08/18) ?Z98.890 - Other specified postprocedural states (ICD-10) S/P hardware removal (10/20/22) ?Z98.890 - Other specified postprocedural states (ICD-10) Hx of nasal septoplasty (04/23/09) ?Z98.890 - Other specified postprocedural states (ICD-10) S/P lumbar fusion ?Z98.1 - Arthrodesis status (ICD-10) History of cardiac radiofrequency ablation ?Z98.890 - Other specified postprocedural states (ICD-10) History of cervical discectomy ?Z98.890 - Other specified postprocedural states (ICD-10) Status post arthroscopy of right shoulder (04/22/08) ?Z98.890 - Other specified postprocedural states (ICD-10) Status post arthroscopy of left shoulder (02/19/10) ?Z98.890 - Other specified postprocedural states (ICD-10) S/P trigger finger release (11/29/18) ?Z98.890 - Other specified postprocedural states (ICD-10) History of carpal tunnel surgery of right wrist (11/29/18) ?Z98.890 - Other specified postprocedural states (ICD-10) Family History (Updated 01/11/23 @ 13:41 by Emely Henson PA-C) Brother Diabetes Social History (Updated 01/11/23 @ 09:26 by Emely Henson PA-C) Narrative: . from glioblastoma. 3 adult kids. 2 grandkids. 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 One of his adult sons lives with him. Former smoker- Quit 35 years ago. Denies recreational drugs Alcohol -rare use ( less than one drink per week) Smoking Status: Former smoker How often do you have a drink containing alcohol: never How often do you have six or more drinks on one occasion: Never AUDIT-C Alcohol total score: 0 Non-prescribed substance use: denies use Caffeine: Yes Little interest or pleasure in doing things: several days Feeling down, depressed, or hopeless: several days Exam Narrative: Exam Narrative: General: Well-developed and well-nourished, no acute distress Head: Atraumatic and normocephalic Eyes: Pupils are equal reactive, extraocular motions intact, conjunctiva clear ENT: External nose and ears are normal, posterior pharynx without erythema or exudate Neck: No midline cervical tenderness, full spontaneous range of motion the neck, trachea midline, no adenopathy Heart: Regular rate and rhythm with valve murmur Lungs: Clear to auscultation bilaterally without wheezes or crackles Abdomen: Soft, nontender, nondistended with active bowel sounds Musculoskeletal: Left lumbar paraspinous tenderness along with psoas muscle, no CVA tenderness Neurologic: Awake, alert, and oriented x3, no gross focal neurologic deficits, cranial nerves intact as tested Psych: Mood and affect are appropriate Skin: No rashes Const: Vital Signs, click to edit/add: Vital Signs - 24 hr 11/29/23 00:01 11/29/23 00:15 Temperature 98.0 F 98.0 F Pulse Rate [Right Pulse Oximeter] 89 Respiratory Rate 18 Blood Pressure [Ri ght Upper Arm] 147/71 H Pulse Oximetry 99 Oxygen Delivery Me thod Room Air Course Course ED Course: Patient seen and examined, reviewed prior CTA of the abdomen and pelvis from June 2023 which demonstrated normal abdominal aorta and 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 Patient presents with left-sided low back pain going on for about a week but worse tonight. On exam here, appears little uncomfortable with no CVA tenderness. Symptoms seem most consistent with musculoskeletal pain but cannot exclude kidney stone or other retroperitoneal pathology. Labs are ordered along with CT scan. Reevaluation(s) Time of Reevaluation #1: 00:36 Reevaluation #1: Labs ordered and independently interpreted by me with mild anemia which is improving, also mild leukocytosis. Urinalysis does not demonstrate any evidence for infection or hematuria. Time of Reevaluation #2: 00:47 Reevaluation #2: CT scan of the abdomen pelvis independently interpreted by me does not demonstrate acute retroperitoneal findings including hemorrhage or mass, no ureteral stones. Basic panel and panel interpreted by me is normal in INR slightly subtherapeutic at 1.68. Patient should follow-up with Coumadin clinic. Symptom management for what is likely musculoskeletal low back pain Time of Reevaluation #3: 01:09 Reevaluation #3: Patient recheck, he is feeling better after Toradol. Will be discharged with [place], follow-up with primary care for further evaluation and consideration for physical therapy. Vital Signs Vital signs: Initial Vital Signs Temperature 98.0 F 11/29/23 00:01 Temperature Source Temporal Artery Scan 11/29/23 00:01 Pulse Rate 89 11/29/23 00:01 Respiratory Rate 18 11/29/23 00:01 Blood Pressure 147/71 H 11/29/23 00:01 Blood Pressure Mean 96 11/29/23 00:01 Blood Pressure Position Sitting 11/29/23 00:01 Pulse Oximetry 99 11/29/23 00:01 Oxygen Delivery Method Room Air 11/29/23 00:01 Vital Signs Temperature 98.0 F 11/29/23 00:01 Pulse Rate 89 11/29/23 00:01 Respiratory Rate 18 11/29/23 00:01 Blood Pressure 147/71 H 11/29/23 00:01 Pulse Oximetry 99 11/29/23 00:01 Oxygen Delivery Method Room Air 11/29/23 00:01 Temperature 98.0 F 11/29/23 00:15 Pulse Rate 89 11/29/23 00:01 Respiratory Rate 18 11/29/23 00:01 Blood Pressure 147/71 H 11/29/23 00:01 Pulse Oximetry 99 11/29/23 00:01 Oxygen Delivery Method Room Air 11/29/23 00:01 Medications Administered Medications: Generic Name Dose Route Start Last Admin Trade Name Freq PRN Reason Stop Dose Admin Ketorolac Tromethamine 15 mg 11/29/23 00:11 11/29/23 00:15 Ketorolac 15 Mg/Ml Inj IVP 11/29/23 00:12 15 mg ONCE ONE Administration MDM - Back Pain/Injury Lab Data Labs: Lab Results 11/29/23 11/29/23 Range/Units 00:10 00:15 WBC 11.83 H (4.50-11.00) K/uL RBC 4.49 (4.30-5.90) m/uL Hgb 10.3 L (13.5-17.5) gm/dL Hct 33.1 L (37.0-53.0) % MCV 74 L (80-100) fL MCH 23 L (26-34) pg MCHC 31 L (32-36) gm/dL RDW Coeff of Heladio 19.8 H (11.5-15.5) % Plt Count 366 (140-440) K/uL Neut % (Auto) 77.9 H (42.0-72.0) % Lymph % (Auto) 6.9 L (20-44) % [place] % (Auto) 6.3 (0.0-11.0) % Eos % (Auto) 7.2 H (0.0-7.0) % Baso % (Auto) 0.3 (0.0-3.0) % Neut # (Auto) 9.20 H (1.7-7.0) K/uL Lymph # (Auto) 0.80 L (0.90-2.90) K/uL [place] # (Auto) 0.70 (0.00-0.90) K/UL Eos # (Auto) 0.90 H (0.00-0.50) K/uL Baso # (Auto) 0.00 (0.00-0.30) K/uL Abs Immat Gran (auto) 0.20 (0.00-0.30) K/uL Imm/Tot Granulo (auto) 1.4 % INR 1.68 H (0.91-1.10) Sodium 136 (135-149) mmol/L Potassium 4.8 (3.6-5.1) mmol/L Chloride 100 (96-114) mmol/L Carbon Dioxide 26 (20-32) mmol/L Anion Gap 10 (7-15) mEq/L BUN 23 (7-30) mg/dL Creatinine 0.7 (0.5-1.5) mg/dL Estimated Creat Clear 66.10 Estimated GFR 100 ml/min Glucose 163 H (60-115) mg/dL Calcium 9.4 (8.4-10.6) mg/dL Urine Color Yellow (Yellow) Urine Appearance Clear (Clear) Urine pH 7.5 (5.0-8.5) Ur Specific [place] 1.020 (1.000-1.030) Urine Protein Negative (Negative) Urine Glucose (UA) Negative (Negative) Urine Ketones Negative (Negative) Urine Blood Negative (Negative) Urine Nitrite Negative (Negative) Urine Bilirubin Negative (Negative) Urine Urobilinogen 0.2 (0.2-1.0) Ur Leukocyte Esterase Negative (Negative) Urine RBC 0-2 (0-2) Urine WBC 0-2 (0-5) Ur Squamous Epith Cells Few (None-Few) Amorphous Sediment Few A (None) Urine Bacteria Few A (None) Discharge Plan Discharge Clinical Impression: Acute left-sided low back pain Patient Disposition: Home, Self-Care Condition: Stable Instructions: Acute Low Back Pain (ED) Additional Instructions: Warm packs or cold packs for comfort Tylenol as needed for pain. Oxycodone for more severe pain. Follow-up with your primary care doctor to discuss physical therapy and further evaluation and treatment Activity Level: Activity as Tolerated Discharge Diet: Regular Prescriptions: No Action acetaminophen 500 mg tablet 500 mg PO Q4H PRN nitroglycerin 0.4 mg tablet, sublingual 0.4 mg sublingual Q5M PRN Patient Comments: Place two tablets under tongue every 5 minutes if need for chest pain Rx Instructions: do not exceed 3 doses per episode omeprazole 20 mg capsule,delayed release(DR/EC) 20 mg PO QDAY Qty: 90 0RF Rx Instructions: for stomach protection ferrous sulfate 324 mg (65 mg iron) tablet,delayed release (DR/EC) 324 mg PO QDAY Qty: 90 3RF tamsulosin 0.4 mg capsule 0.4 mg PO DAILY atorvastatin 40 mg tablet 40 mg PO HS Patient Comments: TAKE ONE TABLET BY MOUTH AT BEDTIME albuterol sulfate 90 mcg/actuation HFA aerosol inhaler 1 - 2 inh INHALATION Q6H PRN Patient Comments: INHALE 1-2 PUFFS BY MOUTH EVERY 6 HOURS IF NEEDED FOR SHORTNESS OF BREATH OR WHEEZING. USE FIRST CHOICE FOR WHEEZING AND SECOND CHOICE FO ipratropium-albuterol 0.5 mg-3 mg(2.5 mg base)/3 mL solution for nebulization 3 ml inhalation Q6H PRN montelukast 10 mg tablet 10 mg PO QPM glipizide 10 mg tablet extended release 24hr 10 mg PO DAILY Qty: 90 3RF Patient Comments: TAKE ONE TABLET BY MOUTH ONCE DAILY BEFORE A MEAL Rx Instructions: 1 tablet daily for diabetes gabapentin 600 mg tablet 600 mg PO QPM Qty: 90 3RF Rx Instructions: Take 1 tablet nightly metformin 1,000 mg tablet 1,000 mg PO BID Qty: 180 3RF Patient Comments: TAKE ONE TABLET BY MOUTH TWICE DAILY WITH MEALS Rx Instructions: One tablet twice daily for diabetes betamethasone dipropionate 0.05 % cream 1 applic topical BID Rx Instructions: BID to body for 2-3 weeks then BID We/Sa/[place] amlodipine 10 mg tablet 10 mg PO DAILY Qty: 90 1RF Patient Comments: TAKE ONE TABLET BY MOUTH DAILY metoprolol tartrate 25 mg tablet 12.5 mg PO BID citalopram 20 mg tablet 20 mg PO QDAY Qty: 90 0RF Rx Instructions: once daily for mood warfarin 7.5 mg tablet 7.5 mg PO DAILY Qty: 90 0RF Protocol: Dose Management Condition: Monday Dose/Route: 3.75 mg Instruction: 0.5 x 7.5 mg tablets Condition: Monday Dose/Route: 3.75 mg Instruction: 0.5 x 7.5 mg tablets Condition: Monday Dose/Route: 7.5 mg Instruction: 1 x 7.5 mg tablet Condition: Monday Dose/Route: 7.5 mg Instruction: 1 x 7.5 mg tablet Condition: Dose/Route: 7.5 mg Instruction: 1 x 7.5 mg tablet Condition: Monday Dose/Route: 3.75 mg Instruction: 0.5 x 7.5 mg tablets Condition: Monday Dose/Route: 3.75 mg Instruction: 0.5 x 7.5 mg tablets Protocol Text: Adjustment Start Date: Monday11/15/23 INR Value: 2.1 INR Date: 11/15/23 Recheck Date: 12/13/23 Jardiance 10 mg tablet 10 mg PO QAM Qty: 90 0RF Rx Instructions: once daily for diabetes stop glipizide losartan 100 mg tablet 100 mg PO DAILY Qty: 90 3RF Patient Comments: TAKE ONE TABLET BY MOUTH DAILY Follow Up/Referrals: Emely Henson PA-C [Primary Care Provider] - Stand Alone Forms: [employer] Info Instructions
[2023-11-29 00:01] VITALS: BP 147/71; PULSE 89; RESP 18; TEMP 36.7; O2SAT 99; BMI 26.0
--- NOTE | 2023-11-29 00:11 | CRLHL7_ITS ---
For Patients: As a result of the Century Cures Act, medical imaging exams and procedure reports are released immediately into your electronic medical record. You may view this report before your referring provider. If you have questions, please contact your health care provider. INDICATION: Left upper quadrant abdominal pain. TECHNIQUE: CT abdomen and pelvis without contrast. COMPARISON: August 25, 2023. FINDINGS: Lower chest: Trace pericardial effusion. Liver: Normal in size and attenuation. No suspicious masses. Gallbladder and bile ducts: No stones or inflammation. No biliary dilatation. Pancreas: Unremarkable. No mass or inflammation. Spleen: Normal in size. No masses. Adrenal glands: Normal in size. No nodules. Kidneys: Normal in size. No suspicious masses, stones, or hydronephrosis. GI tract: Distal colonic diverticulosis. Otherwise unremarkable GI tract. No sign of inflammation or mass. Normal appendix. Vasculature: Abdominal aorta is normal in caliber. Lymph nodes: No lymphadenopathy. Peritoneum/Abdominal Wall: Unremarkable. No sign of mass or infiltration. No free air or significant free fluid. Pelvis: Unchanged fluid in the left inguinal canal. Moderate prostatomegaly. Bones: Unremarkable for age. IMPRESSION: No acute or specific finding to explain left upper quadrant abdomen pain. No sign of recurrent pancreatitis. There has been complete interval resolution of the previously seen pancreatic pseudocyst. No new abnormalities. Please note that all CT scans at this facility use dose modulation, iterative reconstruction, and/or weight-based dosing when appropriate to reduce radiation dose to as low as reasonably achievable. Dictated by Joseluis Wolfe MD @ 11/29/2023 1:46:37 AM (Electronically Signed)
[2023-11-29 00:15] VITALS: TEMP 36.7
[2023-11-29] MEDS: KETOROLAC 15 MG/ML inj IVP (00:15)
--- OUTSIDE RECORDS SUMMARY | 2023-11-29 00:15 | XMS_ITS | Clinical Summary ---
Author Organization [facility] Address [place], [place] [address] Care Team Providers Care Corporate Travel Coordinator Name Role Phone Emely Hensno PA-C Primary Care Provider + [phone] Paul Soler MD Unavailable +- [phone] Allergies Active Allergy Reactions Criticality Noted Date [...] mouth once daily. 90 Tablet 3 Active warfarin (COUMADIN) 7.5 mg tabletIndications [...] after a meal. 90 Capsule 4 Active atorvastatin (LIPITOR) 40 mg tabletIndications :Type 2 diabetes mellitus without complication, without long-term current use of insulin (HC),Dyslipidemia TAKE ONE TABLET BY MOUTH AT BEDTIME 90 Tablet 4 Active atorvastatin (LIPITOR) 40 mg tabletIndications :Type 2 diabetes mellitus without complication, without long-term current use of insulin (HC),Dyslipidemia Take 1 Tablet (40 mg) by mouth at bedtime. 90 Tablet 3 3 11/28/19 24 Discontinued Active Problems Problem Noted Date Diagnosed Date Groin hematoma 07/06/2023 Severe aortic stenosis 04/20/2023 Coronary artery disease invo lving moapa coronary artery of moapa heart without angina pectoris 04/20/2023 Chronic systolic [...] - 10/22/08: new onset, s/p DCCV in [place], Cor angio with mild CAD - CHADS2 [...] Diabetes mellitus type 2, uncomplicated 06/11/2015 03/30/2016 [employer] (current) use of anticoagulants 04/19/2012 10/15/2013 Overview: Warfarin - started 10/2008; indicated for a fib CHADS2=2 (DM, HTN); goal INR 2.0- 3.0; Anticoagulation monitoring, INR range 2-3 11/20/2010 03/07/2023 Overview: Warfarin - started 10/2008; indicated for a fib CHADS2=2 (DM, HTN) Fever 02/20/2010 05/25/2022 [facility] (current) use of anticoagulants 12/25/2008 11/20/2010 Overview: [...] Type Department Care Team Description 11/27/2023 Refill [facility] [address] [place] [address] Dexter Lofton MD Refill Request (Atorvastatin) 10/31/2023 Orders Only [facility] Scanner 1 scan: (1-Ord) [facility], CT CHEST WITHOUT CON, 10/31/2023 10/26/2023 9:30 AM CDT Telemedicine [facility] [place] [facility] [place] [address] [place] [address] Sourav Mac MD panceas cyst 10/23/2023 9:30 AM CDT Office Visit [facility] [address] [address] [facility] [address] [place] [phone] Paul Soler MD Follow Up (bronchitis) 10/23/2023 Travel 10/13/2023 9:36 AM CDT - 10/13/2023 11:59 PM CDT Hospital Encounter [facility] [address] [place] [address] Radha Hernandez MD 10/13/2023 Travel 10/11/2023 9:41 AM CDT - 10/11/2023 11:59 PM CDT Hospital Encounter [facility] [address] [place] [address] Radha Hernandez MD 10/11/2023 Travel 10/10/2023 10:25 AM CDT Anesthesia Event [address] [place] [address] José Manuel Hooker MD 10/10/2023 9:55 AM CDT - 10/10/2023 10:55 AM CDT Surgery [address] [place] [address] Sourav Mac MD ENDOSCOPIC ULTRASOUND FINE NEEDLE ASPIRATE UPPER 10/10/2023 8:44 AM CDT - 10/10/2023 12:39 PM CDT Hospital Encounter [address] [place] [address] Sourav Mac MD Pancreas cyst (Primary Dx) Discharge Disposition: Home Self Care 10/09/2023 9:36 AM CDT - 10/09/2023 11:59 PM CDT Hospital Encounter [address] [address] Radha Hernandez MD 10/09/2023 Travel 10/06/2023 9:33 AM CDT - 10/06/2023 11:59 PM CDT Hospital Encounter [address] [address] Radha Hernandez MD 10/06/2023 Travel 10/04/2023 9:35 AM CDT - 10/04/2023 11:59 PM CDT Hospital Encounter [address] [address] Radha Hernandez MD 10/04/2023 Travel 10/02/2023 9:33 AM CDT - 10/02/2023 11:59 PM CDT Hospital Encounter [address] [address] Radha Hernandez MD 10/02/2023 Travel 09/29/2023 9:33 AM CDT - 09/29/2023 11:59 PM CDT Hospital Encounter [address] [address] Radha Hernandez MD 09/29/2023 Travel 09/27/2023 9:32 AM CDT - 09/27/2023 11:59 PM CDT Hospital Encounter [address] [address] Radha Hernandez MD 09/27/2023 Travel 09/25/2023 9:31 AM CDT - 09/25/2023 11:59 PM CDT Hospital Encounter [facility] [address] [place] [address] Radha Hernandez MD 09/25/2023 Telephone [facility] [place] [address] [place] [address] [place] [address] Floyd Patel MD Results 09/25/2023 Travel 09/22/2023 11:00 AM CDT Ancillary Procedure [place] [facility] [address] [address] 09/22/2023 Travel 09/20/2023 9:35 AM CDT - 09/20/2023 11:59 PM CDT Hospital Encounter [facility] [address] [place] [address] Radha Hernandez MD 09/20/2023 Travel 09/18/2023 9:34 AM CDT - 09/18/2023 11:59 PM CDT Hospital Encounter [facility] [address] [place] [address] Radha Hernandez MD 09/18/2023 Travel 09/15/2023 9:39 AM CDT - 09/15/2023 11:59 PM CDT Hospital Encounter [facility] [address] [place] [address] Radha Hernandez MD 09/15/2023 Travel 09/13/2023 9:32 AM CDT - 09/13/2023 11:59 PM CDT Hospital Encounter [facility] [address] [place] [address] Radha Hernandez MD 09/13/2023 Travel 09/11/2023 9:43 AM CDT - 09/11/2023 11:59 PM CDT Hospital Encounter [facility] [address] [place] [address] Radha Hernandez MD 09/11/2023 Refill [facility] [address] [address] Dexter Lofton MD Refill Request (Tamsulosin) 09/11/2023 Travel 09/08/2023 9:31 AM CDT - 09/08/2023 11:59 PM CDT Hospital Encounter [facility] [address] [place] [address] Radha Hernandez MD 09/08/2023 Travel 09/06/2023 9:37 AM CDT - 09/06/2023 11:59 PM CDT Hospital Encounter [facility] [address] [place] [address] Radha Hernandez MD 09/06/2023 Telephone [facility] [address] [place] [address] Mark Finley MD Abstract (Plan of care ) 09/06/2023 Travel 09/04/2023 9:28 AM CDT - 09/04/2023 11:59 PM CDT Hospital Encounter [facility] [address] [place] [address] Radha Hernandez MD 09/04/2023 Travel 09/01/2023 9:33 AM CDT - 09/01/2023 11:59 PM CDT Hospital Encounter [facility] [address] [place] [address] Radha Hernandez MD 09/01/2023 Travel 08/30/2023 9:36 AM CDT - 08/30/2023 11:59 PM CDT Hospital Encounter [facility] [address] [place] [address] Radha Hernandez MD 08/30/2023 Telephone [facility] [address] [place] [address] [facility] Cancer Referral (Dx: Pancreatic lesion with abnormal weight loss for Dr. Finley) 08/30/2023 Travel 08/29/2023 Lab Requisition [facility] [phone] Emely Henson PA-C from Last 3 Months Immunizations Name Administration [...] 2 Heart Disease Father d 85 yo [place] aft er hip fracture Arthritis Mother Heart [...] Stone MD Medical Devices Implanted Type Area House Cleaner Device Identifier Shelf Expiration Date Model / Serial / Lot [id number] e Canclls Crushed 60cc [] Implanted:Qty: 1 on 08/22/2006 at [facility] Explanted:at [facility] (Quantity not on file) Spine Allosource 05/17/2011 [id number] / [id number] / [id number] e Canclls Crushed 30cc [[id number]] Implanted:Qty: 1 on 08/22/2006 at [facility] Explanted:at [facility] (Quantity not on file) Spine Allosource 11/16/2010 [id number]# / [id number] / Vesna Dayanara [id number] - [id number] Implanted:Qty: 6 on 08/22/2006 at [facility] Spine HOWMEDICA [id number]# / / Screw Polyaxial 6.5x45mm - [id number] Implanted:Qty: 6 on 08/22/2006 at [facility] Spine [employer] [id number]# / / Marin Dayanara Rad 70mm 108mm Radius - [id number] Implanted:Qty: 2 on 08/22/2006 at [facility] Spine [employer] [id number]# / / Wedge Tag Acufex 3.7mm - [id number] Implanted:Qty: 3 on 08/25/2011 at [facility] Left: Shoulder [employer] [id number]# / / [id number] Screw Cerv Ant 4x15mm [facility] Translational Va Slf Drill - [id number] Implanted:Qty: 3 on 03/04/2022 by Donald Alba MD at [facility] N/A: Spine Medtronic Spine/Ortho [id number] / / Plate Cerv 1lvl 25mm [facility] Vision Elite Ant - [id number] Implanted:Qty: 1 on 03/04/2022 by Donald Alba MD at [facility] N/A: Spine Medtronic Spine/Ortho [id number] / / [id number] e Matrix 1cc Olga Plus Paste Dbm Implanted:Qty: 1 on 03/04/2022 by Donald Alba MD at [facility] Explanted:at [facility] (Quantity not on file) N/A: Spine Medtronic Spine/Ortho 10/12/2023 [id number] / [id number] / [id number] Spinal Graft Block Robert Implanted:Qty: 1 on 03/04/2022 by Donald Alba MD at [facility] Explanted:at [facility] (Quantity not on file) N/A: Spine Medtronic Spine/Ortho 02/24/2024 [id number] / [id number] / Screw Cerv Ant 4x13mm [employer] Translational Va Slf Drill - [id number] Implanted:Qty: 1 on 03/04/2022 by Donald Alba MD at [facility] N/A: Spine Medtronic Spine/Ortho [id number] / / Tissue Pericardium 0.8x8cm Photofix Bovine - [id number] Implanted:Qty: 1 on 06/29/2023 by Ahmet Levy MD at [facility] Left: Groin Cryolife Inc 02/03/2025 [id number] / / [id number] Description:CryoLife PhotoFi x Decellularized Bovine Pericardium 0.8cm x 8cm; Lot Number [id number]; Reference Number [id number]; Implanted to the left [...] BLD MORPHOLOGY Routine 08/29/2023 9:20 AM CDT from Last 3 Months Results * SCAN-CT INTERPRETATION (10/31/2023 12:00 AM CDT) Anatomical Region Laterality Modality Other Scanner OTHER * SCAN-CARDIAC REHABILITATION (10/13/2023 9:57 AM CDT) Only the most recent of19 resultswithin the time period is included. Scanner OTHER * CEA FLUID (10/10/2023 10:53 AM CDT) CEA FLUID 5.3 Not Estab. ng/mL 10/12/2023 1:10 PM CD[facility] [...] AM CDT 10/10/2023 11:13 AM CDT Narrative [facility] ([facility]) - 10/12/2023 1:10 PM CDT Test(s) 446862-KOX, Fluid was developed and its performance characteristics determined by [facility]. It has not been cleared or approved by the Food and Drug Administration. Performed at: ??01 - [address] ??[id number] Cold Storage Worker: Bailey Burrows MD, Phone: ??[phone] Sourav Mac MD BODY FLUID [facility] ([facility]) [address] [place] [address], * AMYLASE OTHER BODY FLUID (10/10/2023 10:53 AM CDT) Amylase Body Fld [address] U/L 10/11/19 24 2:09 PM CDT [facility] ([facility]) Comment: ?: BODY FLUID TYPE : ?AMYLASE ?: ?: : : ?: Lymph ? : ?50 - 83 ?: ?: : : ?: Peritoneal ?: ? : ?: Fluid ? : ?88 - 109 ? : ?: : : ?: Saliva ?: ? : ?: (Mixed Glands) ??: ? [id number] ?: ?: : : ? Jose W, Zach V. Reference Intervals ? for Adults and Children 2007. Nin ? Edition (V9.1) [employer], ? Rotkreuz; Williamson: December 2008. Results confirmed on dilution. Cyst Fluid SPECIMEN FROM PANCREAS / Unknown Non-Blood / Unknown 10/10/2023 10:53 AM CDT 10/10/2023 11:13 AM CDT Narrative [facility] ([facility]) - 10/11/2023 2:09 PM CDT Performed at: ??01 - [facility] [address] [place], [place] ??[id number] Cold Storage Worker: Dick Villalpando MD, Phone: ??[phone] Sourav Mac MD BODY FLUID [facility] (CET) [address] [place] [address], * PATH FNA CYTOLOGY ASP CYTOLOGY (10/10/2023 10:53 AM CDT) Case Report Medical Cytology Report ? Case: [id number] ? Authorizing Provider: ??Sourav Mac, ?? Collected: ? 10/10/2023 1053 ? MD ? Ordering Location: ? [facility] ?Received: ?10/10/2023 1230 ? Hospital ? Pathologist: ? Belén Sultana ? MD Peyton ? Specimen: ?Pancreas, Priority: CEA, Amylase ? 10/11/2023 10:44 AM [facility] Final Diagnosis CYST, PANCREAS TAIL, ENDOSCOPIC ULTRASOUND-GUIDED FINE NEEDLE ASPIRATION: Marked acute inflammation; negative for malignancy 10/11/2023 10:44 AM [facility] Clinical Information Mr. Ugarte is a 68 y.o. with a cystic lesion in the pancreatic tail. The endosonographic appearance is consistent with a pancreatic pseudocyst. Fine needle aspiration for fluid performed. 10/11/2023 10:44 AM [facility] Gross Description A) SOURCE: Pancreas, fine needle aspiration The specimen consists of 2 cc of light yellow opaque fluid from which the following is prepared: ? -1 DiffQuik stained slide ? -1 Papanicolaou stained ThinPrep slide ?? 10/11/2023 10:44 AM [facility] Adequacy Assessment 10/11/2023 10:44 AM [facility] Microscopic Description Specimen adequacy: Adequate for interpretation. All slides were reviewed. The microscopic appearance substantiates the diagnosis. 10/11/2023 10:44 AM CDT [facility]AL [facility] Additional Information Cytology is screened at [facility], [facility] Laboratory - [address], [place] [address] and [facility] - [address], [place] [address] and [facility] - [address] [place] [address] Interpreted at [facility] - [address], [place] [address] 10/11/2023 10:44 AM CDT [facility]- ENTRAL LABORATORY Cyst Fluid SPECIMEN FROM PANCREAS / Unknown 10/10/2023 10:53 AM CDT 10/10/2023 12:30 PM CDT Sourav Mac MD PATHOLOGY/CYTO LOGY [facility] [address] [place] [address], [place] * ENDOSCOPY (10/10/2023 10:27 AM CDT) 10/10/2023 10:2 7 AM CDT Narrative Transcriptions Sourav Mac MD - 10/10/2023 11:28 AM CDT [facility] Patient Name: Vilma Ugarte Procedure Date: 10/10/2023 Gender: Male Date of : 1955 Admit Type: Ambulatory Procedure: Upper EUS Proceduralist: Sourav Mac MD - [facility] Referring MD: Sourav Mca MD Indications/Pre-Op Diagnosis: Pancreatic cyst on CT scan Medications: Monitored Anesthesia Care Procedure Description: Risk of bleeding, infection, perforation, pancreatitis, need for surgery, remote chance of and alternatives were discussed, andthe patient gave informed consent. The endoscope [id number] was introduced through the mouth, and advanced [...] - 100 mg/dL 10/10/2023 9:40 AM CDT [facility] [employer] [facility] [facility] Blood BLOOD SPECIMEN / Unknown 10/10/2023 9:35 AM CDT 10/10/2023 9:40 AM CDT Sourav Mac MD [facility] [address] [place] [address], [place] * SCAN CORRESP-EKG RESULTS (10/05/2023 2:25 PM [...] PM CDT ECHOCARDIOGRAM VILMA UGARTE ?Accession#: ?? [id number] : ?1955 68 years Study Date: ?? 09/22/2023 11:23:10 AM Gender: ? BP: ? 125/67 mmHg Height: 168.00 cm ? BSA: ?1.87 m? ? ? Weight: 77.00 kg ?Tech: ? MSR ?Referring MD: Site: ? [facility] Reading Location: Mobile OP Patient Location: [...] . This study was interpreted by an [facility] accredited facility. CC: [facility] ([facility]) [facility]. ??Final ?? Procedure Note Elizabeth Bryant, [facility] - 09/22/2023 ECHOCARDIOGRAM VILMA UGARTE : 1955 68 years Study Date: 09/22/2023 11:23:10 AM Gender: BP: 125/67 mmHg Height: 168.00 cm BSA: 1.87 m? ? ? Weight: 77.00 kg Tech: CHERYL Referring MD: Site: [facility] Reading Location: Mobile OP Patient [...] an [facility] accredited facility. CC: HIM (med records) [facility]. Final Floyd Patel MD ECHO ORD * LAB TRACKING EVENT (08/29/2023 9:20 AM CDT) Other (Other) Client Collect / Unknown 08/29/2023 9:20 AM CDT 08/29/2023 3:34 PM CDT Emely Henson PA-C LAB BILL ONLY [facility] LABORATORY [address] [place] [address], * PERIPHERAL BLD MORPHOLOGY (08/29/2023 9:20 AM CDT) Case Report Special Hematology Report ? Case: [id number] ? Authorizing Provider: ??Emely Henson PA-C ?Collected: ? 08/29/2023 0920 ? Ordering Location: ? [facility] ?Received: ?08/29/2023 1642 ? Pathologist: ? Flip Craven, ? MD ? Specimen: ?Peripheral Blood ? 08/30/2023 11:18 AM [facility] ENTRAL LABORATORY Final Diagnosis PERIPHERAL BLOOD: 1. Moderate normocytic, hypochromic anemia with increased rouleaux formation 2. Mild absolute lymphopenia, nonspecific 3. See comment 08/30/2023 11:18 AM [facility] EN[facility] Comment The morphologic features [...] as clinically indicated. 08/30/2023 11:18 AM CDT [facility] Clinical Information 68-year-old male with anemia, anticoagulation and weight loss. Evaluate for abnormal cells. 08/30/2023 11:18 AM CDT [facility] CBC and Differential HEMATOLOGY PARAMETERS Tested at: ??[facility] Laboratory ? RESULTS ??EXPECTED VALUES WBC: ? 7.8 ?4.5-73b9054/cum m ? RBC: ? 3.41 ? 4.30-5.90 mil/cumm ??DECREASED HGB: ? 8.4 ?13.5-17.5 gm/di ? DECREASED HCT: ? 27.2 ? 37-53% ?DECREASED MCV: ? 80.0 ? 80-100 fl ? NORMOCYTIC MCH: ? 24.6 ? 26-34 pg ?DECREASED MCHC: ?30.9 ? 32-36 gm/dl ? HYPOCHROMIC RDW: ? 14.3 ? 11.5-15.5% ? PLT: ? 260 ?140-122f2689/uL ? Differential ?Absolute (%) ?Expected (%) ?(x10*9/L) ? (x10*9/L) Neutrophils: ?6.4 (82.5) ?1.7-7.0 (42-72%) ? Lymphocytes: ?0.5 (6.4) ? 0.9-2.9 (20-44%) ??DECREASED Monocytes: ?0.5 (6.4) ?<0.9 (0-11%) ? Eosinophils: ?0.3 (3.9) ?<0.5 (0-2%) ? 08/30/2023 11:18 AM CDT [facility] [employer] LABORATORY-C [facility] Microscopic Description The final diagnosis is based on microscopic examination of an appropriately stained blood smear. 08/30/2023 11:18 AM CDT [facility] [employer] LABORATORY-C [facility] Additional Information Interpreted at [facility] [employer] [facility], Central Laboratory - [address] [place] [address] 08/30/2023 11:18 AM CDT [facility] [employer] LABORATORY-C [facility] Blood (Peripheral Blood) 08/29/2023 9:20 AM CDT 08/29/2023 4:42 PM CDT Emely Henson PA-C HEMATOLOGY [facility] [address] [place] [address], from Last 3 Months Advance Directives * [...] Status Discussion: Per Existing Order Care Teams Corporate Travel Coordinator Relationship Specialty Start Date End Date Emely Henson PA-C [address] [place] [address] PCP - General Emergency Medicine 04/20/23 Paul Soler MD [address] [place] [id number] Pulmonology Pulmonary Medicine 09/30/22
[2023-11-29 00:26] LABS: Appearance Urine Clear (Clear); Bilirubin Urine Negative (Negative); Blood Urine Negative (Negative); Color Urine Yellow (Yellow); Glucose Urine Negative (Negative); Ketones Urine Negative (Negative); Leukocyte Esterase Urine Negative (Negative); Nitrite Urine Negative (Negative); Protein Urine Negative (Negative); Urobilinogen Urine 0.2 (0.2-1.0); pH Urine 7.5 (5.0-8.5)
[2023-11-29 00:26] LABS: Basophils Percent Auto 0.3 % (0.0-3.0); Eosinophils Percent Auto 7.2 % (0.0-7.0); Hematocrit 33.1 % (37.0-53.0); Hemoglobin* 10.3 gm/dL (13.5-17.5); Immature Granulocytes Pct Auto 1.4 %; Lymphocytes Percent Auto 6.9 % (20-44); Mean Corpuscular HGB Conc 31 gm/dL (32-36); Mean Corpuscular Hemoglobin 23 pg (26-34); Mean Corpuscular Volume 74 fL (80-100); Monocytes Percent Auto 6.3 % (0.0-11.0); Neutrophils Percent Auto 77.9 % (42.0-72.0); Platelet Count* 366 K/uL (140-440); RDW Coefficient of Variation % 19.8 % (11.5-15.5); Red Blood Count 4.49 m/uL (4.30-5.90); White Blood Count* 11.83 K/uL (4.50-11.00)
[2023-11-29 00:29] LABS: Slide Review Reflex No
[2023-11-29 00:33] LABS: Amorphous Sediment Urine Few; Bacteria Urine Few; RBC Urine 0-2 (0-2); Squamous Epithelial Cell Urine Few (None-Few); WBC Urine 0-2 (0-5)
[2023-11-29 00:39] LABS: Chloride* 100 mmol/L (96-114); Potassium* 4.8 mmol/L (3.6-5.1); Sodium* 136 mmol/L (135-149)
[2023-11-29 00:42] LABS: Anion Gap 10 mEq/L (7-15); Carbon Dioxide* 26 mmol/L (20-32); Creatinine* 0.7 mg/dL (0.5-1.5); Estimated Glomerular Filt Rate 100 ml/min; INR 1.68 (0.91-1.10)
[2023-11-29 00:43] LABS: Blood Urea Nitrogen* 23 mg/dL (7-30); Calcium* 9.4 mg/dL (8.4-10.6); Glucose* 163 mg/dL (60-115)
[2023-11-29 01:17] VITALS: TEMP 36.7
[2023-11-29] MEDS: dexAMETHasone 10 MG/ML inj IVP (01:17)
[2023-11-29 01:36] VITALS: BP 132/72; PULSE 84; RESP 18; TEMP 36.7; O2SAT 99
[2023-11-29 01:38] VITALS: BP 132/72; PULSE 84; RESP 18; TEMP 36.7
== END 2023-11-29 01:38 | disposition home or self-care (01) ==
PROVIDERS: Emergency Provider Family Medicine; PCP Physician Assistant Medical
DX: M54.50 Low back pain, unspecified (principal)
CPT/HCPCS: 36415; 74176; 80048; 81001; 85025; 85610; 87086; 96374; 96375; 99283; 99284; J1100; J1885

== ENCOUNTER 2023-12-04 19:32 | Emergency (ER) | payer MEDICARE, BC, SELFPAY ==
[2023-12-04] VITALS (12 sets, daily range): BP systolic 131–173; BP diastolic 69–124; PULSE 95–109; RESP 16–20; TEMP 36.4; O2SAT 91–99; BMI 25.8
--- NOTE | 2023-12-04 20:26 | CRLHL7_ITS ---
For Patients: As a result of the Century Cures Act, medical imaging exams and procedure reports are released immediately into your electronic medical record. You may view this report before your referring provider. If you have questions, please contact your health care provider. INDICATION: Acute lower back pain. TECHNIQUE: CT abdomen and pelvis acquired with 81 cc Isovue 370 IV contrast. COMPARISON: 11/29/2023. FINDINGS: Lower chest: Partially visualized TAVR. Mitral annular and coronary artery calcifications. Liver: Unremarkable. Normal in size and attenuation. No suspicious masses. Gallbladder and bile ducts: Unremarkable. No stones or inflammation. No biliary ductal dilatation. Spleen: Unremarkable. Normal in size. No masses. Adrenal glands: Unremarkable. No nodules. Pancreas: Unremarkable. No mass or inflammation. Kidneys: Bilateral renal cysts. No stones or hydronephrosis. GI tract: Colonic diverticulosis without evidence of diverticulitis. No evidence of obstruction. Normal appendix. Lymph nodes: No lymphadenopathy. Vasculature: Scattered atherosclerotic calcifications. Abdominal aorta is normal in caliber. Omentum/Peritoneum/Abdominal Wall: Unremarkable. No free air or significant free fluid. Pelvis: Prostatomegaly. Unchanged fluid or lesion in the left inguinal canal. Bones: Degenerative changes. L3-L5 instrumented fusion. IMPRESSION: No acute abdominal or pelvic abnormality. Please note that all CT scans at this facility use dose modulation, iterative reconstruction, and/or weight-based dosing when appropriate to reduce radiation dose to as low as reasonably achievable. Dictated by Jonnathan Wells MD @ 12/04/2023 11:28:34 PM (Electronically Signed)
--- NOTE | 2023-12-04 20:29 | CRLHL7_ITS ---
For Patients: As a result of the Century Cures Act, medical imaging exams and procedure reports are released immediately into your electronic medical record. You may view this report before your referring provider. If you have questions, please contact your health care provider. INDICATION: Lower back pain. TECHNIQUE: Multiplanar CT examination of the lumbar spine was performed without the use of intravenous contrast. COMPARISON: None. FINDINGS: Status post posterior instrumented fusion of L3-L5. Streak artifact from the orthopedic hardware limits evaluation of the adjacent structures. No evidence of hardware failure. Diffuse osteopenia limits evaluation for subtle nondisplaced fractures. Nonspecific straightening of the normal lumbar lordosis. No acute fractures or traumatic subluxation. The vertebral body heights are maintained. Multilevel degenerative changes of the visualized lumbar spine, with severe degenerative disc disease throughout. Grade 1 degenerative anterolisthesis of L3 on L4. Mild degenerative retrolisthesis of L5 on S1. No high-grade canal stenosis at any lumbar spinal level. Hypertrophic degenerative changes likely result in multilevel neural foraminal stenosis, severe at L5-S1, right greater than left. No significant prevertebral soft tissue edema. Please refer to the separately dictated report of the concurrently performed CT of abdomen and pelvis full discussion of its findings. The posterior paraspinal soft tissues appear unremarkable. IMPRESSION: 1. No acute fracture or traumatic subluxation of the lumbar spine. 2. Postsurgical changes from a prior posterior instrumented fusion of L3-L5. 3. Severe multilevel lumbar spondylosis, likely resulting in severe right neural foraminal stenosis at L5-S1. No high-grade stenosis of the osseous spinal canal at any lumbar spinal level. Please note that all CT scans at this facility use dose modulation, iterative reconstruction, and/or weight-based dosing when appropriate to reduce radiation dose to as low as reasonably achievable. Dictated by Ben Tesfaye MD @ 12/05/2023 12:26:27 AM (Electronically Signed)
--- OUTSIDE RECORDS SUMMARY | 2023-12-04 20:38 | XMS_ITS | Clinical Summary ---
Author Organization [facility] Address [place], [place] [address] Care Team Providers Care Aviation Metalsmith Name Role Phone Emely Henson PA-C Primary Care Provider + [phone] Paul Soler MD Unavailable +- [phone] Allergies Active Allergy Reactions Criticality Noted Date [...] stenosis 04/20/2023 Coronary artery disease invo lving belkofski coronary artery of belkofski heart without angina pectoris 04/20/2023 Chronic systolic [...] - 10/22/08: new onset, s/p DCCV in [place], [place] angio with mild CAD - CHADS2 [...] Type Department Care Team Description 11/27/2023 Refill [facility] [address] [place] [address] Dexter Lofton MD Refill Request (Atorvastatin) 10/31/2023 Orders Only [facility] Scanner 1 scan: (1-Ord) [facility], CT CHEST WITHOUT CON, 10/31/2023 10/26/2023 9:30 AM CDT Telemedicine [facility] [place] [facility] [place] [address] [place] [address] Sourav Mac MD panceas cyst 10/23/2023 9:30 AM CDT Office Visit [facility] [address] [place] [address] N [facility] [address] [place] [phone] Paul Soler MD Follow Up (bronchitis) 10/23/2023 Travel 10/13/2023 9:36 AM CDT - 10/13/2023 11:59 PM CDT Hospital Encounter [facility] [address] [place] [address] Radha Hernandez MD 10/13/2023 Travel 10/11/2023 9:41 AM CDT - 10/11/2023 11:59 PM CDT Hospital Encounter [facility] [address] [place] [address] Radha Hernandez MD 10/11/2023 Travel 10/10/2023 10:25 AM CDT Anesthesia Event [facility] [address] [place] [address] José Manuel Hooker MD 10/10/2023 9:55 AM CDT - 10/10/2023 10:55 AM CDT Surgery [facility] [address] [place] [address] Sourav Mac MD ENDOSCOPIC ULTRASOUND FINE NEEDLE ASPIRATE UPPER 10/10/2023 8:44 AM CDT - 10/10/2023 12:39 PM CDT Hospital Encounter [facility] [address] [place] [address] Sourav Mac MD Pancreas cyst (Primary Dx) Discharge Disposition: Home Self Care 10/09/2023 9:36 AM CDT - 10/09/2023 11:59 PM CDT Hospital Encounter [address] [address] Radha Hernandez MD 10/09/2023 Travel 10/06/2023 9:33 AM CDT - 10/06/2023 11:59 PM CDT Hospital Encounter [address] [address] Radha Hernandez MD 10/06/2023 Travel 10/04/2023 9:35 AM CDT - 10/04/2023 11:59 PM CDT Hospital Encounter [address] [address] Radha Hernandez MD 10/04/2023 Travel 10/02/2023 9:33 AM CDT - 10/02/2023 11:59 PM CDT Hospital Encounter [address] [address] Radha Hernandez MD 10/02/2023 Travel 09/29/2023 9:33 AM CDT - 09/29/2023 11:59 PM CDT Hospital Encounter [address] [address] Radha Hernandez MD 09/29/2023 Travel 09/27/2023 9:32 AM CDT - 09/27/2023 11:59 PM CDT Hospital Encounter [address] [address] Radha Hernandez MD 09/27/2023 Travel 09/25/2023 9:31 AM CDT - 09/25/2023 11:59 PM CDT Hospital Encounter [facility] [address] [place] [address] Radha Hernandez MD 09/25/2023 Telephone [facility] [address] [place] [address] [place] [address] Floyd Patel MD Results 09/25/2023 Travel 09/22/2023 11:00 AM CDT Ancillary Procedure [facility] [address] [address] 09/22/2023 Travel 09/20/2023 9:35 AM CDT - 09/20/2023 11:59 PM CDT Hospital Encounter [facility] [address] [place] [address] Radha Hernandez MD 09/20/2023 Travel 09/18/2023 9:34 AM CDT - 09/18/2023 11:59 PM CDT Hospital Encounter [facility] [address] [place] [address] Radha Hernandez MD 09/18/2023 Travel 09/15/2023 9:39 AM CDT - 09/15/2023 11:59 PM CDT Hospital Encounter [facility] [address] [place] [address] Radha Hernandez MD 09/15/2023 Travel 09/13/2023 9:32 AM CDT - 09/13/2023 11:59 PM CDT Hospital Encounter [facility] [address] [place] [address] Radha Hernandez MD 09/13/2023 Travel 09/11/2023 9:43 AM CDT - 09/11/2023 11:59 PM CDT Hospital Encounter [facility] [address] [place] [address] Radha Hernandez MD 09/11/2023 Refill [facility] [address] [address] Dexter Lofton MD Refill Request (Tamsulosin) 09/11/2023 Travel 09/08/2023 9:31 AM CDT - 09/08/2023 11:59 PM CDT Hospital Encounter [facility] 200 [place] [address] Radha Hernandez MD 09/08/2023 Travel 09/06/2023 9:37 AM CDT - 09/06/2023 11:59 PM CDT Hospital Encounter [facility] [address] [place] [address] Radha Hernandez MD 09/06/2023 Telephone [facility] [address] [place] [address] Mark Finley MD Abstract (Plan of care ) 09/06/2023 Travel 09/04/2023 9:28 AM CDT - 09/04/2023 11:59 PM CDT Hospital Encounter [facility] [address] [place] [address] Radha Hernandez MD 09/04/2023 Travel from Last 3 Months Immunizations Name [...] 2 Heart Disease Father d 85 yo [place] aft er hip fracture Arthritis Mother Heart [...] Felder MD Medical Devices Implanted Type Area Biomedical Engineering Aide Device Identifier Shelf Expiration Date Model / Serial / Lot [id number] e Canclls Crushed 60cc [] Implanted:Qty: 1 on 08/22/2006 at [facility] Explanted:at [facility] (Quantity not on file) Spine Allosource 05/17/2011 [id number]# / [id number] / [id number] e Canclls Crushed 30cc [] Implanted:Qty: 1 on 08/22/2006 at [facility] Explanted:at [facility] (Quantity not on file) Spine Allosource 11/16/2010 [id number]# / [id number] / Vesna Dayanara [id number] - [id number] Implanted:Qty: 6 on 08/22/2006 at [facility] Spine HOWMEDICA [id number]# / / Screw Polyaxial 6.5x45mm - [id number] Implanted:Qty: 6 on 08/22/2006 at [facility] Spine [employer] [id number]# / / Marin Dayanara Rad 70mm 108mm Radius - [id number] Implanted:Qty: 2 on 08/22/2006 at [facility] Spine [employer] [id number]# / / Wedge Tag Acufex 3.7mm - [id number] Implanted:Qty: 3 on 08/25/2011 at [facility] Left: Shoulder [employer] [id number]# / / [id number] Screw Cerv Ant 4x15mm [place] Translational Va Slf Drill - [id number] Implanted:Qty: 3 on 03/04/2022 by Donald Alba MD at [facility] N/A: Spine Medtronic Spine/Ortho [id number] / / Plate Cerv 1lvl 25mm [place] Vision Elite Ant - [id number] Implanted:Qty: 1 on 03/04/2022 by Donald Alba MD at [facility] N/A: Spine Medtronic Spine/Ortho [id number] / / [id number] e Matrix 1cc Steve Plus Paste Dbm Implanted:Qty: 1 on 03/04/2022 by Donald Alba MD at [facility] Explanted:at [facility] (Quantity not on file) N/A: Spine Medtronic Spine/Ortho 10/12/2023 [id number] / [id number] / [id number] Spinal Graft Block Robert Implanted:Qty: 1 on 03/04/2022 by Donald Alba MD at [facility] Explanted:at [facility] (Quantity not on file) N/A: Spine Medtronic Spine/Ortho 02/24/2024 [id number] / [id number] / Screw Cerv Ant 4x13mm [place] Translational Va Slf Drill - [id number] Implanted:Qty: 1 on 03/04/2022 by Donald Alba MD at [facility] N/A: Spine Medtronic Spine/Ortho [id number] / / Tissue Pericardium 0.8x8cm Photofix Bovine - [id number] Implanted:Qty: 1 on 06/29/2023 by Ahmet Levy MD at [facility] Left: Groin [employer] 02/03/2025 [id number] / / [id number] Description:CryoLife PhotoFi x Decellularized Bovine Pericardium 0.8cm x 8cm; Lot Number [id number]; Reference Number [id number]; Implanted to the left [...] UPPER Elective 10/10/2023 10:21 AM CDT See MD rice GLUCOSE METER Timed 10/10/2023 9:35 AM CDT [...] CDT SCAN-CARDIAC REHABILITATION 09/04/2023 9:36 AM CDT from Last 3 Months Results * SCAN-CT INTERPRETATION (10/31/2023 12:00 AM CDT) Anatomical Region Laterality Modality Other Scanner OTHER * SCAN-CARDIAC REHABILITATION (10/13/2023 9:57 AM CDT) Only the most recent of17 resultswithin the time period is included. Scanner OTHER * CEA FLUID (10/10/2023 10:53 AM CDT) CEA FLUID 5.3 Not Estab. ng/mL 10/12/2023 1:10 PM CDT [facility] Comment: [facility] [...] AM CDT 10/10/2023 11:13 AM CDT Narrative [facility] ([facility]) - 10/12/2023 1:10 PM CDT Test(s) 934860-CCN, Fluid was developed and its performance characteristics determined by [facility]. It has not been cleared or approved by the Food and Drug Administration. Performed at: ??[address] - [address] ??[id number] Dry Wall Installations Mechanic: Bailey Burrows MD, Phone: ??[phone] Sourav Mac MD BODY FLUID [facility] [address] [place] [address], * AMYLASE OTHER BODY FLUID (10/10/2023 10:53 AM CDT) [place] [address] U/L 10/11/19 24 2:09 PM CDT [facility] Comment: ?: BODY FLUID TYPE : ?AMYLASE ?: ?: : : ?: Lymph ? : ?50 - 83 ?: ?: : : ?: Peritoneal ?: ? : ?: Fluid ? : ?88 - 109 ? : ?: : : ?: Saliva ?: ? : ?: (Mixed Glands) ??: ? 81049 - 122975 ?: ?: : : ? [place] W, Zach V. Reference Intervals ? for Adults and Children 2007. Nin ? Edition (V9.1) [employer], ? Rotkreuz; Kerr: December 2008. Results confirmed on dilution. Cyst Fluid SPECIMEN FROM PANCREAS / Unknown Non-Blood / Unknown 10/10/2023 10:53 AM CDT 10/10/2023 11:13 AM CDT Narrative [facility] - 10/11/2023 2:09 PM CDT Performed at: ??01 - [facility] [address] [place], [place] ??[id number] Dry Wall Installations Mechanic: Dick Villalpando MD, Phone: ??[phone] Sourav Mac MD BODY FLUID [facility] [address] [place] [address], * PATH FNA CYTOLOGY ASP CYTOLOGY (10/10/2023 10:53 AM CDT) Case Report Medical Cytology Report ? Case: [id number] ? Authorizing Provider: ??Sourav Mac, ?? Collected: ? 10/10/2023 1053 ? MD ? Ordering Location: ? [facility] ?Received: ?10/10/2023 1230 ? Hospital ? Pathologist: ? Belén Sultana ? MD Peyton ? Specimen: ?Pancreas, Priority: CEA, Amylase ? 10/11/2023 10:44 AM CDT [facility] Final Diagnosis CYST, PANCREAS TAIL, ENDOSCOPIC ULTRASOUND-GUIDED FINE NEEDLE ASPIRATION: Marked acute inflammation; negative for malignancy 10/11/2023 10:44 AM CDT [facility] Clinical Information Mr. Ugarte is a 68 y.o. with a cystic lesion in the pancreatic tail. The endosonographic appearance is consistent with a pancreatic pseudocyst. Fine needle aspiration for fluid performed. 10/11/2023 10:[address] [facility] Gross Description A) SOURCE: Pancreas, fine needle aspiration The specimen consists of 2 cc of light yellow opaque fluid from which the following is prepared: ? -1 DiffQuik stained slide ? -1 Papanicolaou stained ThinPrep slide ?? 10/11/2023 10:44 AM CDT [facility] Adequacy Assessment 10/11/2023 10:44 AM CDT [facility] Microscopic Description Specimen adequacy: Adequate for interpretation. All slides were reviewed. The microscopic appearance substantiates the diagnosis. 10/11/2023 10:[address] [facility] Additional Information Cytology is screened at [facility] - [address] [address] and [facility] - [address] [place] [address] and [facility] - [address] [place] [address] Interpreted at [facility] - [address] [address] 10/11/2023 10:44 AM CDT [facility] Cyst Fluid SPECIMEN FROM PANCREAS / Unknown 10/10/2023 10:53 AM CDT 10/10/2023 12:30 PM CDT Sourav Mac MD PATHOLOGY/CYTO LOGY [facility] [address] [place] [address], * ENDOSCOPY (10/10/2023 10:27 AM CDT) 10/10/2023 10:2 7 AM CDT Narrative Transcriptions Sourav Mac MD - 10/10/2023 11:28 AM CDT [facility] Patient Name: Vilma Ugarte Procedure Date: 10/10/2023 Gender: Male Date of : 1955 Admit Type: Ambulatory Procedure: Upper EUS Proceduralist: Sourav Mac MD - [facility] Referring MD: Sourav Mac MD Indications/Pre-Op Diagnosis: Pancreatic cyst on CT scan Medications: Monitored Anesthesia Care Procedure Description: Risk of bleeding, infection, perforation, pancreatitis, need for surgery, remote chance of and alternatives were discussed, andthe patient gave informed consent. The endoscope [id number] was introduced through the mouth, and advanced [...] - 100 mg/dL 10/10/2023 9:40 AM CDT [facility] Blood BLOOD SPECIMEN / Unknown 10/10/2023 9:35 AM CDT 10/10/2023 9:40 AM CDT Sourav Mac MD [facility] [address] [place] [address], * SCAN CORRESP-EKG RESULTS (10/05/2023 2:25 PM [...] PM CDT ECHOCARDIOGRAM VILMA UGARTE ?Accession#: ?? [id number] : ?1955 68 years Study Date: ?? 09/22/2023 11:23:10 AM Gender: ? BP: ? 125/67 mmHg Height: 168.00 cm ? BSA: ?1.87 m? ? ? Weight: 77.00 kg ?Tech: ? MSR ?Referring MD: Site: ? [facility] Reading Location: Mobile OP Patient Location: [...] an [facility] accredited facility. CC: NELI (med records) [facility]. ??Final ?? Procedure Note Elizabeth Bryant, [facility] - 09/22/2023 ECHOCARDIOGRAM VILMA UGARTE : 1955 68 years Study Date: 09/22/2023 11:23:10 AM Gender: BP: 125/67 mmHg Height: 168.00 cm BSA: 1.87 m? ? ? Weight: 77.00 kg Tech: MSR Referring MD: Site: [facility] Reading Location: Mobile OP Patient [...] interpreted by an [facility] accredited facility. CC: [facility] ([facility]) [facility]. Final Floyd Patel MD ECHO ORD from Last 3 Months Advance Directives * [...] Status Discussion: Per Existing Order Care Teams Aviation Metalsmith Relationship Specialty Start Date End Date Emely Henson PA-C [address] [place] [address] PCP - General Emergency Medicine 04/20/23 Paul Soler MD [address] [place] [address] Pulmonology Pulmonary Medicine 09/30/22
--- OUTSIDE RECORDS SUMMARY | 2023-12-04 20:38 | XMS_ITS | Continuity of Care Document ---
Author Organization [facility] Address [address] [address] [place] [address] Phone Care Team Providers Care Social Services Assistant Name Role Phone Estefania ERNDON, Sourav Unavailable Unavailable Allergies, Adverse Reactions, Alerts Substance Reaction Status Criticality No Known Allergies Active No Inform ation Procedures Procedure Date Offic/outpt E&m Estab Mod-hi 2 24 Complex e/m visit add on Ugi Endo; W/us Guid Asp/bx Advance Directives Directive Yes / No Effective Date File Name No Information Encounters Encounter Description Practice Location Reason(s) For Visit Diagnoses Date Provider Providers Copied on Encounter Offic/outpt E&m Estab Mod-hi 2 [facility], [address] [address], [place], [place], [id number], [place] tel:[phone] [facility] GI Symptoms or Concerns (chief complaint) Pancreas cyst 4 Estefania Benjamin. [address] [place] [address], [facility] [address], [place], [place], [id number] , [place]. tel:[phone] Referring Provider: Sourav Mac MD, [address] [place] [address] [address], [place], [address] . tel:[phone] [facility], [address] [address], [place], [place], [id number], [place] tel:[phone] [facility] Pancreas cyst Sep- 4 Estefania Benjamin. [address] [facility] [address], [place], [place], [id number] , [place]. tel:[phone] [facility], [address] [address], [place], [place], [id number], [place] tel:[phone] [facility] No Information Sep-3 4 Estefania Benjamin. [address] [facility], [place], [place], [id number] , [place]. tel:[phone] Referring Provider: Sourav Mac MD, [address] [facility] [address], [place], [address] . tel:[phone] [facility], [address] [address], [place], [place], [id number], [place] tel:[phone] [facility] No Information Sep-0 4 Solis Osuna. [address] [facility], [place], [place], [id number] , [place]. tel:[phone] Family History Family Member Type Diagnosis Age At Onset No Information Immunizations Vaccine Date Status Comments influenza, high-dose seasona l, quadrivalent, 0.7mL dose, preservative free administered Note: [facility] bi-direct ional interface ; Source: Other Registry Pneumococcal conjugate vacci ne 20-valent (PCV20), polysaccharide [id number] conjugate, adjuvant, preservative free administered Note: [facility] bi-direct ional interface ; Source: Other Registry SARS-COV-2 (COVID-19) vaccin e, mRNA, spike protein, LNP, bivalent, preservative free, 30 mcg/0.3 mL dose, ritika-sucrose formulation administered Note: [facility] bi-direct ional interface ; Source: Other Registry influenza, seasonal vaccine, quadrivalent, adjuvanted, 0.5mL dose, preservative free administered Note: [facility] bi-di rectional interface ; Source: Other Registry SARS-COV-2 (COVID-19) vaccin e, mRNA, spike protein, LNP, preservative free, 100 mcg/0.5mL dose or 50 mcg/0.25mL dose administered Note: [facility] bi -directional interface ; Source: Other Registry SARS-COV-2 (COVID-19) vaccin e, mRNA, spike protein, LNP, preservative free, 100 mcg/0.5mL dose or 50 mcg/0.25mL dose administered Note: [facility] bi -directional interface ; Source: Other Registry influenza, seasonal vaccine, quadrivalent, adjuvanted, 0.5mL dose, preservative free administered Note: [facility] bi-di rectional interface ; Source: Other Registry SARS-COV-2 (COVID-19) vaccin e, mRNA, spike protein, LNP, preservative free, 100 mcg/0.5mL dose or 50 mcg/0.25mL dose administered Note: [facility] bi -directional interface ; Source: Other Registry SARS-COV-2 (COVID-19) vaccin e, mRNA, spike protein, LNP, preservative free, 100 mcg/0.5mL dose or 50 mcg/0.25mL dose administered Note: [facility] bi -directional interface ; Source: Other Registry influenza, seasonal vaccine, quadrivalent, adjuvanted, 0.5mL dose, preservative free administered Note: [facility] bi-di rectional interface ; Source: Other Registry Afluria Qd administered Note: [facility] bi-directional interface ; Source: Other Registry Afluria Qd administered Note: [facility] bi-directional interface ; Source: Other Registry Afluria Qd administered Note: [facility] bi-directional interface ; Source: Other Registry Engerix-B administered Note: [facility] bi-d irectional interface ; Source: Other Registry Engerix-B administered Note: [facility] bi-d irectional interface ; Source: Other Registry Afluria Qd administered Note: M [facility] bi-directional interface ; Source: Other Registry Engerix-B administered Note: [facility] bi-d irectional interface ; Source: Other Registry tetanus toxoid, reduced diphtheria toxoid, and acellular pertussis vaccine, adsorbed administered Note: [facility] b i-directional interface ; Source: Other Registry Influenza, seasonal, injecta ble, preservative free administered Note: [facility] bi-direct ional interface ; Source: Other Registry Influenza, seasonal, injectable administe red Note: [facility] bi- directional interface ; Source: Other Registry Influenza, seasonal, injectable administe red Note: [facility] bi- directional interface ; Source: Other Registry Twinrix administered Note: [facility] bi-d irectional interface ; Source: Other Registry Pneumovax 23 administered Note: [facility] bi-d irectional interface ; Source: Other Registry Influenza, seasonal, injectable administe red Note: [facility] bi- directional interface ; Source: Other Registry Payers Payer name Insurance type Covered alliance party ID Authorjaja wright(s) Medicare NGS [id number] [facility] Medicare Supplement BL [id number] Social History Type Description Quantity Date Captured Comments Alcohol Use Details Unknown Caffeine Use Details Unknown Tobacco Use Status No Information Smoking Status undefined Sex Male Vital Signs Date / Time: Height Weight BMI Pulse Rate Blood Pressure Temperature Respiratory Rate Body Surface Area Head Circumference Head Circ. Percentile Wt./Tone. Percentile BMI percentile Pulse Ox Inhaled Ox 9:51 AM 67.00 in 77.111 kg (170.00 lbs) 26.6 2 kg/m eter (2) Chief Complaint And Reason For Visit From encounter dated '10/26/2023 09:30'. GI Symptoms or Concerns (chief complaint) Reason For Referral Reason For Referral No Information Plan Of Treatment Date Type Action Status Referral Ordered: CT Abdomen WITHOUT And WITH Contrast Appointment date/timeframe: 04/27/2024 ordered History Of Present Illness Encounter Date Complaint History Of Prese nt Illness GI Symptoms or Concerns Functional Status Date Functional Assessmen t No Information Instructions Date Instruction Additional Infor mation No Information Assessments Type Assessment Date assessment Pancreas cyst Patient Care Teams Name Effective Dates (start - stop) Status Members No Information
--- OUTSIDE RECORDS SUMMARY | 2023-12-04 20:38 | XMS_ITS | Continuity of Care Document ---
Author Organization [facility] Address [address] [place] [address] Phone Care Team Providers Care Touring Production Manager Name Role Phone Sumit Castillo MD Unavailable [...] Date Provider Providers Copied on Encounter [facility], [address], [place], [address], [place] tel:[phone] [facility] No Information 8 Jonathan Arana. [facility], [address], [place], [place], [id number] , [place]. [phone] Office/outpat ient visit,est, low [facility], [address] [place], [place] [address], [place], [address], [place] tel:[phone] [facility] [place] No Information Apr-1 0-200 8 Mehbod Amir. [facility], [address], [place], [place], [id number] , [place]. tel:[phone] Referring Provider: Mckinley Cardona, [facility], [place], [address]. tel:[phone] Office/outpat ient visit,est, low [facility] [place], [address] [place], [place] [address]ite [facility], [place], [place], [facility], [place] tel:[phone] [facility] [place] No Information Jan-0 9-200 7 Mehbod Amir. [facility] [place], [address], [place], [place], [id number] , [place]. [phone] Referring Provider: Mckinley Cardona, [facility], [place], [address]. tel:[phone] Office/outpat ient visit,est, low [facility] [place], [address] [place] [address], [place], [place], [facility], [place] tel:[phone] [facility] No Information Bong-2 8-200 7 Mehbod Amir. [facility] [place], [address], [place], [place], [id number] , [place]. [phone] Referring Provider: Mckinley Cardona, [facility], [place], [address]. tel:[phone] Z [facility], [address] [place], [place] [address], [place], [place], [facility], [place] tel:[phone] [facility] [place] No Information October-1 0-200 7 Mehbod Amir. [facility], [address], [place], [place], [id number] , [place]. tel:[phone] Referring Provider: Mckinley Cardona [facility], [place], [address]. tel:[phone] [facility], [address] [place], [place] [address], [place], [address], [place] tel:[phone] [facility] No Information Aug- 1-200 7 Mehbod Amir. [facility], [address], [place], [place], [id number] , [place]. tel:[phone] Ref[facility]: [facility], [place], [address]. tel:[phone] Office consultation, moderate [facility], [address], [place], [address], [place] tel:[phone] [facility] [place] No Information 5200 6 Mehbod Amir. [facility], [address], [place], [place], [id number] , [place]. tel:[phone] Referring Provider: Mckinley Cardona [facility], [place], [address]. tel:[phone] Family History Family Member Type Diagnosis Age At Onset No Information Payers Payer name Insurance type Covered libertarian ID Authorjaja wright(s) [employer] AM [id number] [facility] [id number] Social History Type Description Quantity Date Captured [...]
--- NOTE | 2023-12-04 20:45 | ED.GENADULT ---
HPI - General Adult General Chief complaint: Back Injury/Pain Stated complaint: Lower back pain Time Seen by Provider: 12/04/23 20:11 Source: patient Mode of arrival: wheelchair Limitations: no limitations History of Present Illness HPI narrative: 68-year-old male presenting today with acute back and abdominal pain. Patient states that he fell last week and came into the ER for evaluation. He states that the pain a week ago was on his left lower back. He states that he had CT scans done which were unremarkable. I did evaluate the reports of those CTs today and they were indeed unremarkable. He states that he has been doing his normal activities of daily living with some discomfort but nothing that stops him from doing his activities until today. He states that he was mowing his lawn and he had to fix the tire on the more. He states that when he was pushing the Kash back into the garage he felt a pop in his lower back and acute intense pain in the left lower back. He states that at the same time he feels pain in his groin area and his lower left abdomen, down the lateral left thigh. He states that 1 pain does not come 1st and then radiates he says that the pain comes on at the exact same time. He says that the pain is excruciating and makes him feel very nauseated like he has to throw up any minute. He denies numbness in the groin area or the perineal area. He denies any loss of bowel control. States that he did urinate because he was in so much pain. He states that he lives at home with his son, his son put him in the car and then got in here with the help of wheelchair, patient states that he cannot walk secondary to the amount of pain that he is in. Related Data Home Medications ?Medication ?Instructions ?Recorded ?Confirmed atorvastatin 40 mg tablet 40 mg PO HS 01/13/22 11/29/23 tamsulosin 0.4 mg capsule 0.4 mg PO DAILY 01/13/22 11/29/23 albuterol sulfate 90 mcg/actuation 1 - 2 inh inhalation Q6H PRN 06/27/22 11/29/23 aerosol inhaler ipratropium 0.5 mg-albuterol 3 mg 3 ml inhalation Q6H PRN 06/27/22 11/29/23 (2.5 mg base)/3 mL nebulization soln acetaminophen 500 mg tablet 500 mg PO Q4H PRN 01/11/23 11/29/23 nitroglycerin 0.4 mg sublingual 0.4 mg sublingual Q5M PRN 01/11/23 11/29/23 tablet betamethasone dipropionate 0.05 % 1 applic topical BID 07/20/23 11/29/23 topical cream metoprolol tartrate 25 mg tablet 12.5 mg PO BID 08/15/23 11/29/23 montelukast 10 mg tablet 10 mg PO QPM 11/29/23 11/29/23 Previous Rx's ?Medication ?Instructions ?Recorded gabapentin 600 mg tablet 600 mg PO QPM #90 tabs 06/07/23 glipizide 10 mg tablet, extended 10 mg PO DAILY #90 tabs 06/07/23 release 24 hr metformin 1,000 mg tablet 1,000 mg PO BID #180 tabs 06/26/23 amlodipine 10 mg tablet 10 mg PO DAILY #90 tabs 08/10/23 omeprazole 20 mg capsule,delayed 20 mg PO QDAY #90 caps 08/22/23 release citalopram 20 mg tablet 20 mg PO QDAY #90 tabs 09/12/23 warfarin 7.5 mg tablet 7.5 mg PO DAILY #90 tabs 10/18/23 ferrous sulfate 324 mg (65 mg 324 mg PO QDAY #90 tabs 11/23/23 iron) tablet,delayed release empagliflozin 10 mg tablet 10 mg PO QAM #90 tabs 11/26/23 (Jardiance) losartan 100 mg tablet 100 mg PO DAILY #90 tabs 11/28/23 methylprednisolone 4 mg tablets in See Rx Instructions PO .COMPLEX 12/05/23 a dose pack (Medrol (Henry)) #21 ea Allergies Allergy/AdvReac Type Severity Reaction Status Date / Time No Known Drug Allergies Allergy Verified 12/04/23 22:46 Review of Systems Status of ROS: Reports: 10 or more systems reviewed and unremarkable except as noted in History and below [facility] Medical History Normal coronary angiogram History of transcatheter aortic valve replacement (TAVR) (~06/29/23) ?Z95.2 - Presence of prosthetic heart valve (ICD-10) Nausea and vomiting (07/07/11) ?R11.2 - Nausea with vomiting, unspecified (ICD-10) Change in vision ?H53.9 - Unspecified visual disturbance (ICD-10) Dyslipidemia ?E78.5 - Hyperlipidemia, unspecified (ICD-10) Impotence, organic ?N52.9 - Male erectile dysfunction, unspecified (ICD-10) Hypermetropia ?H52.00 - Hypermetropia, unspecified eye (ICD-10) Presbyopia ?H52.4 - Presbyopia (ICD-10) Regular astigmatism ?H52.229 - Regular astigmatism, unspecified eye (ICD-10) Essential (primary) hypertension ?I10 - Essential (primary) hypertension (ICD-10) ASHD (arteriosclerotic heart disease) ?I25.10 - Atherosclerotic heart disease of [place] coronary artery without angina pectoris (ICD-10) Paroxysmal atrial fibrillation ?I48.0 - Paroxysmal atrial fibrillation (ICD-10) Rotator cuff tear ?M75.100 - Unspecified rotator cuff tear or rupture of unspecified shoulder, not specified as traumatic (ICD-10) Systolic murmur ?R01.1 - Cardiac murmur, unspecified (ICD-10) Liver cyst ?K76.89 - Other specified diseases of liver (ICD-10) Rupture of left long head biceps tendon ?S46.112A - Strain of muscle, fascia and tendon of long head of biceps, left arm, initial encounter (ICD-10) Partial tear of subscapularis tendon ?S46.819A - Strain of other muscles, fascia and tendons at shoulder and upper arm level, unspecified arm, initial encounter (ICD-10) Unspecified rotator cuff tear or rupture of left shoulder, not specified as traumatic ?M75.102 - Unspecified rotator cuff tear or rupture of left shoulder, not specified as traumatic (ICD-10) PAOLO (obstructive sleep apnea) (~11/20/18) ?G47.33 - Obstructive sleep apnea (adult) (pediatric) (ICD-10) Bicuspid aortic valve (~03/24/20) ?Q23.1 - Congenital insufficiency of aortic valve (ICD-10) Stenosis of cervical spine ?M48.02 - Spinal stenosis, cervical region (ICD-10) Surgical History History of ankle surgery (~06/2022) ?Z98.890 - Other specified postprocedural states (ICD-10) Status post transcatheter aortic valve replacement (~06/29/23) ?Z95.2 - Presence of prosthetic heart valve (ICD-10) History of surgery on right wrist (12/08/18) ?Z98.890 - Other specified postprocedural states (ICD-10) S/P hardware removal (10/20/22) ?Z98.890 - Other specified postprocedural states (ICD-10) Hx of nasal septoplasty (04/23/09) ?Z98.890 - Other specified postprocedural states (ICD-10) S/P lumbar fusion ?Z98.1 - Arthrodesis status (ICD-10) History of cardiac radiofrequency ablation ?Z98.890 - Other specified postprocedural states (ICD-10) History of cervical discectomy ?Z98.890 - Other specified postprocedural states (ICD-10) Status post arthroscopy of right shoulder (04/22/08) ?Z98.890 - Other specified postprocedural states (ICD-10) Status post arthroscopy of left shoulder (02/19/10) ?Z98.890 - Other specified postprocedural states (ICD-10) S/P trigger finger release (11/29/18) ?Z98.890 - Other specified postprocedural states (ICD-10) History of carpal tunnel surgery of right wrist (11/29/18) ?Z98.890 - Other specified postprocedural states (ICD-10) Family History Brother Diabetes Social History Narrative: . from glioblastoma. 3 adult kids. 2 grandkids. 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 One of his adult sons lives with him. Former smoker- Quit 35 years ago. Denies recreational drugs Alcohol -rare use ( less than one drink per week) Smoking Status: Former smoker Second hand tobacco smoke exposure: No How often do you have a drink containing alcohol: never How often do you have six or more drinks on one occasion: Never AUDIT-C Alcohol total score: 0 Non-prescribed substance use: denies use Caffeine: Yes Little interest or pleasure in doing things: several days Feeling down, depressed, or hopeless: several days Exam Narrative: Exam Narrative: Well-nourished well-developed patient in moderate distress. Alert and oriented x3. Answers questions appropriately. Patient is writhing in pain. Does dry heave. HEENT: Normocephalic atraumatic. Pupils are equally round reactive to light. Extraocular muscles are intact. Conjunctivae are moist without any icterus noted. Moist mucous membranes. Cardiovascular: Heart is regular rate and rhythm, murmur present. Lungs: Clear to auscultation bilaterally no wheezes rhonchi or rales are appreciated. Abdomen: Acutely tender on the left side of the abdomen. He does have normal bowel sounds. He has a bulge on the left side just superior to the penis and testicles, the area is exquisitely tender. Extremities: Bilateral lower extremities are without edema. Skin: Well perfused . He has what appears to be a nummular eczematous rash over his buttocks and back. Back: Patient has acute tenderness to the left paraspinal musculature of the lumbar spine. He has no tenderness directly over the spine itself. Patient's pants are moist with urine. He can move the bilateral lower extremities symmetrically any has good strength however causes him significant amount of pain in his back and abdomen. Patient keeps grabbing his groin and yelling in pain. Strength is 5/5 of the upper and lower extremities. Reflexes are 2+ and symmetric at the knees. Cranial nerves 3-12 are normal. Const: Vital Signs, click to edit/add: Vital Signs - 24 hr 12/04/23 19:40 12/04/23 20:24 Temperature 97.6 F Pulse Rate [Pulse Oximeter] 109 H Respiratory Rate 16 Blood Pressure [Ri ght Upper Arm] 173/69 H Pulse Oximetry 99 93 Oxygen Delivery Me thod Room Air Course Course ED Course: IV is established and patient receives IV Dilaudid, labs were drawn and imaging is ordered: CBC was unremarkable, normal white cell count, hemoglobin of 11.3, platelet count of 359. Did have 90.2% neutrophils. Chemistries were unremarkable. Normal lactate. LFTs were normal. Normal lipase. Urine had 2+ glucose and 1+ ketones, of note blood glucose was 199. Abdominal CT scan was done: This was unremarkable. Repeated dose of IV Dilaudid as patient was stating that his pain was a 10/10. Lumbar CT showed no acute findings. With appropriate pain management, patient's pulse did come down to 95. Vital Signs Vital signs: Initial Vital Signs Temperature 97.6 F 12/04/23 19:40 Temperature Source Temporal Artery Scan 12/04/23 19:40 Pulse Rate 109 H 12/04/23 19:40 Respiratory Rate 16 12/04/23 19:40 Blood Pressure 173/69 H 12/04/23 19:40 Blood Pressure Mean 103 12/04/23 19:40 Blood Pressure Position Sitting 12/04/23 19:40 Pulse Oximetry 99 12/04/23 19:40 Oxygen Delivery Method Room Air 12/04/23 19:40 Vital Signs Temperature 97.6 F 12/04/23 19:40 Pulse Rate 109 H 12/04/23 19:40 Respiratory Rate 16 12/04/23 19:40 Blood Pressure 173/69 H 12/04/23 19:40 Pulse Oximetry 99 12/04/23 19:40 Oxygen Delivery Method Room Air 12/04/23 19:40 Temperature 97.6 F 12/04/23 19:40 Pulse Rate 109 H 12/04/23 19:40 Respiratory Rate 16 12/04/23 19:40 Blood Pressure 173/69 H 12/04/23 19:40 Pulse Oximetry 93 12/04/23 20:24 Oxygen Delivery Method Room Air 12/04/23 19:40 Medications Administered Medications: Discontinued Medications Generic Name Dose Route Start Last Admin Trade Name Freq PRN Reason Stop Dose Admin Hydromorphone HCl 0.5 mg 12/04/23 20:24 12/04/23 20:52 Hydromorphone 0.5 Mg/0.5 Ml Inj IVP 12/04/23 20:25 0.5 mg ONCE ONE Administration Hydromorphone HCl 0.5 mg 12/04/23 23:07 12/04/23 23:16 Hydromorphone 0.5 Mg/0.5 Ml Inj IVP 12/04/23 23:08 0.5 mg ONCE ONE Administration Medical Decision Making MDM Narrative Medical decision making narrative: 68-year-old male with acute low back pain radiating into the abdomen and groin area down the side of his leg, normal neurological exam. Like the patient likely has a herniated disc. Patient will be sent home with hydrocodone and Medrol Dosepak. Medical Records Medical records reviewed: Yes I reviewed the patient's medical records Lab Data Lab results reviewed: Yes I reviewed the patient's lab results Labs: Lab Results 12/04/23 12/04/23 Range/Units 20:50 20:57 WBC 9.69 (4.50-11.00) K/uL RBC 4.87 (4.30-5.90) m/uL Hgb 11.3 L (13.5-17.5) gm/dL Hct 35.4 L (37.0-53.0) % MCV 73 L (80-100) fL MCH 23 L (26-34) pg MCHC 32 (32-36) gm/dL RDW Coeff of Heladio 20.1 H (11.5-15.5) % Plt Count 359 (140-440) K/uL Neut % (Auto) 90.2 H (42.0-72.0) % Lymph % (Auto) 4.6 L (20-44) % [place] % (Auto) 4.4 (0.0-11.0) % Eos % (Auto) 0.6 (0.0-7.0) % Baso % (Auto) 0.1 (0.0-3.0) % Neut # (Auto) 8.70 H (1.7-7.0) K/uL Lymph # (Auto) 0.40 L (0.90-2.90) K/uL [place] # (Auto) 0.40 (0.00-0.90) K/UL Eos # (Auto) 0.06 (0.00-0.50) K/uL Baso # (Auto) 0.01 (0.00-0.30) K/uL Abs Immat Gran (auto) 0.01 (0.00-0.30) K/uL Imm/Tot Granulo (auto) 0.1 % Sodium 135 (135-149) mmol/L Potassium 4.5 (3.6-5.1) mmol/L Chloride 101 (96-114) mmol/L Carbon Dioxide 19 L (20-32) mmol/L Anion Gap 15 (7-15) mEq/L BUN 26 (7-30) mg/dL Creatinine 0.8 (0.5-1.5) mg/dL Estimated Creat Clear 66.10 Estimated GFR 96 ml/min Glucose 199 H (60-115) mg/dL Lactate 1.8 (0.5-1.9) mmol/L Calcium 9.7 (8.4-10.6) mg/dL Total Bilirubin 0.6 (0.1-1.5) mg/dL Direct Bilirubin 0.4 (0.0-0.5) mg/dL AST 21 (12-35) U/L ALT 15 (4-50) U/L Alkaline Phosphatase 130 (40-150) U/L C-Reactive Protein 0.6 (0.5-1.0) mg/dL Total Protein 7.8 (6.0-8.3) g/dL Albumin 4.7 (3.3-5.0) g/dL Lipase 95 (23-300) U/L Urine Color Yellow (Yellow) Urine Appearance Clear (Clear) Urine pH 7.0 (5.0-8.5) Ur Specific [place] 1.020 (1.000-1.030) Urine Protein Negative (Negative) Urine Glucose (UA) 2+ A (Negative) Urine Ketones 1+ A (Negative) Urine Blood Negative (Negative) Urine Nitrite Negative (Negative) Urine Bilirubin Negative (Negative) Urine Urobilinogen 0.2 (0.2-1.0) Ur Leukocyte Esterase Negative (Negative) Urine RBC 0-2 (0-2) Urine WBC 0-2 (0-5) Ur Squamous Epith Cells None (None-Few) Urine Bacteria None (None) Imaging Data CT scan - abdomen: Attestation: I have reviewed the pertinent imaging results. Radiologist's impression: CT abdomen and pelvis acquired with 81 cc Isovue 370 IV contrast. COMPARISON: 11/29/2023. FINDINGS: Lower chest: Partially visualized TAVR. Mitral annular and coronary artery calcifications. Liver: Unremarkable. Normal in size and attenuation. No suspicious masses. Gallbladder and bile ducts: Unremarkable. No stones or inflammation. No biliary ductal dilatation. Spleen: Unremarkable. Normal in size. No masses. Adrenal glands: Unremarkable. No nodules. Pancreas: Unremarkable. No mass or inflammation. Kidneys: Bilateral renal cysts. No stones or hydronephrosis. GI tract: Colonic diverticulosis without evidence of diverticulitis. No evidence of obstruction. Normal appendix. Lymph nodes: No lymphadenopathy. Vasculature: Scattered atherosclerotic calcifications. Abdominal aorta is normal in caliber. Omentum/Peritoneum/Abdominal Wall: Unremarkable. No free air or significant free fluid. Pelvis: Prostatomegaly. Unchanged fluid or lesion in the left inguinal canal. Bones: Degenerative changes. L3-L5 instrumented fusion. IMPRESSION: No acute abdominal or pelvic abnormality. CT lumbar spine: Attestation: I have reviewed the pertinent imaging results. Radiologist's impression: ultiplanar CT examination of the lumbar spine was performed without the use of intravenous contrast. COMPARISON: None. FINDINGS: Status post posterior instrumented fusion of L3-L5. Streak artifact from the orthopedic hardware limits evaluation of the adjacent structures. No evidence of hardware failure. Diffuse osteopenia limits evaluation for subtle nondisplaced fractures. Nonspecific straightening of the normal lumbar lordosis. No acute fractures or traumatic subluxation. The vertebral body heights are maintained. Multilevel degenerative changes of the visualized lumbar spine, with severe degenerative disc disease throughout. Grade 1 degenerative anterolisthesis of L3 on L4. Mild degenerative retrolisthesis of L5 on S1. No high-grade canal stenosis at any lumbar spinal level. Hypertrophic degenerative changes likely result in multilevel neural foraminal stenosis, severe at L5-S1, right greater than left. No significant prevertebral soft tissue edema. Please refer to the separately dictated report of the concurrently performed CT of abdomen and pelvis full discussion of its findings. The posterior paraspinal soft tissues appear unremarkable. IMPRESSION: 1. No acute fracture or traumatic subluxation of the lumbar spine. 2. Postsurgical changes from a prior posterior instrumented fusion of L3-L5. 3. Severe multilevel lumbar spondylosis, likely resulting in severe right neural foraminal stenosis at L5-S1. No high-grade stenosis of the osseous spinal canal at any lumbar spinal level. Discharge Plan Discharge Clinical Impression: Acute herniated disc Patient Disposition: Home w/ Parent or Adult Condition: Stable Additional Instructions: Take medications as prescribed/as needed. Recommend you follow-up with your primary care provider this week to discuss your progress and your pain management. [place] sent to [facility], 10 tablets. Prescriptions: New methylprednisolone [Medrol (Henry)] 4 mg tablets,dose pack See Rx Instructions .ROUTE .COMPLEX Qty: 21 0RF Rx Instructions: orally per package directions No Action acetaminophen 500 mg tablet 500 mg PO Q4H PRN nitroglycerin 0.4 mg tablet, sublingual 0.4 mg sublingual Q5M PRN Patient Comments: Place two tablets under tongue every 5 minutes if need for chest pain Rx Instructions: do not exceed 3 doses per episode omeprazole 20 mg capsule,delayed release(DR/EC) 20 mg PO QDAY Qty: 90 0RF Rx Instructions: for stomach protection ferrous sulfate 324 mg (65 mg iron) tablet,delayed release (DR/EC) 324 mg PO QDAY Qty: 90 3RF tamsulosin 0.4 mg capsule 0.4 mg PO DAILY atorvastatin 40 mg tablet 40 mg PO HS Patient Comments: TAKE ONE TABLET BY MOUTH AT BEDTIME albuterol sulfate 90 mcg/actuation HFA aerosol inhaler 1 - 2 inh INHALATION Q6H PRN Patient Comments: INHALE 1-2 PUFFS BY MOUTH EVERY 6 HOURS IF NEEDED FOR SHORTNESS OF BREATH OR WHEEZING. USE FIRST CHOICE FOR WHEEZING AND SECOND CHOICE FO ipratropium-albuterol 0.5 mg-3 mg(2.5 mg base)/3 mL solution for nebulization 3 ml inhalation Q6H PRN montelukast 10 mg tablet 10 mg PO QPM glipizide 10 mg tablet extended release 24hr 10 mg PO DAILY Qty: 90 3RF Patient Comments: TAKE ONE TABLET BY MOUTH ONCE DAILY BEFORE A MEAL Rx Instructions: 1 tablet daily for diabetes gabapentin 600 mg tablet 600 mg PO QPM Qty: 90 3RF Rx Instructions: Take 1 tablet nightly metformin 1,000 mg tablet 1,000 mg PO BID Qty: 180 3RF Patient Comments: TAKE ONE TABLET BY MOUTH TWICE DAILY WITH MEALS Rx Instructions: One tablet twice daily for diabetes betamethasone dipropionate 0.05 % cream 1 applic topical BID Rx Instructions: BID to body for 2-3 weeks then BID We/Sa/[place] amlodipine 10 mg tablet 10 mg PO DAILY Qty: 90 1RF Patient Comments: TAKE ONE TABLET BY MOUTH DAILY metoprolol tartrate 25 mg tablet 12.5 mg PO BID citalopram 20 mg tablet 20 mg PO QDAY Qty: 90 0RF Rx Instructions: once daily for mood warfarin 7.5 mg tablet 7.5 mg PO DAILY Qty: 90 0RF Protocol: Dose Management Condition: Monday Dose/Route: 3.75 mg Instruction: 0.5 x 7.5 mg tablets Condition: Monday Dose/Route: 3.75 mg Instruction: 0.5 x 7.5 mg tablets Condition: Monday Dose/Route: 7.5 mg Instruction: 1 x 7.5 mg tablet Condition: Monday Dose/Route: 7.5 mg Instruction: 1 x 7.5 mg tablet Condition: Dose/Route: 7.5 mg Instruction: 1 x 7.5 mg tablet Condition: Monday Dose/Route: 3.75 mg Instruction: 0.5 x 7.5 mg tablets Condition: Monday Dose/Route: 3.75 mg Instruction: 0.5 x 7.5 mg tablets Protocol Text: Adjustment Start Date: Monday11/15/23 INR Value: 2.1 INR Date: 11/15/23 Recheck Date: 12/13/23 Jardiance 10 mg tablet 10 mg PO QAM Qty: 90 0RF Rx Instructions: once daily for diabetes stop glipizide losartan 100 mg tablet 100 mg PO DAILY Qty: 90 3RF Patient Comments: TAKE ONE TABLET BY MOUTH DAILY Follow Up/Referrals: Emely Henson PA-C [Primary Care Provider] - Stand Alone Forms: MyHealth Info Instructions
[2023-12-04] MEDS: HYDROmorphone 0.5 mg/0.5 ml inj IVP ×2 (20:52→23:16)
[2023-12-04 21:03] LABS: Lactate* 1.8 mmol/L (0.5-1.9)
[2023-12-04 21:05] LABS: Basophils Absolute Auto 0.01 K/uL (0.00-0.30); Basophils Percent Auto 0.1 % (0.0-3.0); Eosinophils Absolute Auto 0.06 K/uL (0.00-0.50); Eosinophils Percent Auto 0.6 % (0.0-7.0); Hematocrit 35.4 % (37.0-53.0); Hemoglobin* 11.3 gm/dL (13.5-17.5); Immature Granulocytes Abs Auto 0.01 K/uL (0.00-0.30); Immature Granulocytes Pct Auto 0.1 %; Lymphocytes Percent Auto 4.6 % (20-44); Mean Corpuscular HGB Conc 32 gm/dL (32-36); Mean Corpuscular Hemoglobin 23 pg (26-34); Mean Corpuscular Volume 73 fL (80-100); Monocytes Percent Auto 4.4 % (0.0-11.0); Neutrophils Percent Auto 90.2 % (42.0-72.0); Platelet Count* 359 K/uL (140-440); RDW Coefficient of Variation % 20.1 % (11.5-15.5); Red Blood Count 4.87 m/uL (4.30-5.90); White Blood Count* 9.69 K/uL (4.50-11.00)
[2023-12-04 21:07] LABS: Appearance Urine Clear (Clear); Bilirubin Urine Negative (Negative); Blood Urine Negative (Negative); Color Urine Yellow (Yellow); Glucose Urine 2+ (Negative); Ketones Urine 1+ (Negative); Leukocyte Esterase Urine Negative (Negative); Nitrite Urine Negative (Negative); Protein Urine Negative (Negative); Urobilinogen Urine 0.2 (0.2-1.0)
[2023-12-04 21:13] LABS: Slide Review Reflex No
[2023-12-04 21:16] LABS: RBC Urine 0-2 (0-2); WBC Urine 0-2 (0-5)
[2023-12-04 21:21] LABS: Albumin* 4.7 g/dL (3.3-5.0); Chloride* 101 mmol/L (96-114); Sodium* 135 mmol/L (135-149)
[2023-12-04 21:22] LABS: Potassium* 4.5 mmol/L (3.6-5.1)
[2023-12-04 21:23] LABS: Creatinine* 0.8 mg/dL (0.5-1.5); Estimated Glomerular Filt Rate 96 ml/min
[2023-12-04 21:24] LABS: Alkaline Phosphatase* 130 U/L (40-150); Anion Gap 15 mEq/L (7-15); Aspartate Amino Transferase* 21 U/L (12-35); Bilirubin Direct* 0.4 mg/dL (0.0-0.5); Bilirubin Total* 0.6 mg/dL (0.1-1.5); Blood Urea Nitrogen* 26 mg/dL (7-30); Carbon Dioxide* 19 mmol/L (20-32); Glucose* 199 mg/dL (60-115); Lipase* 95 U/L (23-300); Total Protein* 7.8 g/dL (6.0-8.3)
[2023-12-04 21:25] LABS: Alanine Aminotransferase* 15 U/L (4-50); Calcium* 9.7 mg/dL (8.4-10.6)
[2023-12-04 21:27] LABS: C Reactive Protein* 0.6 mg/dL (0.5-1.0)
[2023-12-05] VITALS: PULSE 99; O2SAT 94
[2023-12-05 00:02] VITALS: BP 130/84; PULSE 97; RESP 16; O2SAT 95
[2023-12-05 00:30] VITALS: PULSE 90; O2SAT 97
[2023-12-05 00:32] VITALS: BP 108/80; PULSE 93; O2SAT 95
== END 2023-12-05 00:45 | disposition home or self-care (01) ==
PROVIDERS: Emergency Provider Family Medicine; PCP Physician Assistant Medical
DX: M51.27 Other intervertebral disc displacement, lumbosacral region (principal)
CPT/HCPCS: 36415; 72131; 74177; 80048; 80076; 81001; 83605; 83690; 85025; 86140; 94761; 96374; 96376; 99284; J1170; Q9967

== ENCOUNTER 2023-12-07 06:57 | Outpatient (CLI) | payer MEDICARE, BC, SELFPAY ==
--- OUTSIDE RECORDS SUMMARY | 2023-12-07 07:00 | XMS_ITS | Clinical Summary ---
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 04/19/2012 10/15/2013 Overview: Warfarin - started 10/2008; indicated for a fib CHADS2=2 (DM, HTN); goal INR 2.0- 3.0; Anticoagulation monitoring, INR range 2-3 11/20/2010 03/07/2023 Overview: Warfarin - started 10/2008; indicated for a fib CHADS2=2 (DM, HTN) Fever 02/20/2010 05/25/2022 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 12/25/2008 11/20/2010 Overview: [...] Encounters Date Type Department Care Team Description 12/05/2023 Telephone [facility] [address] [place] [address] Paul Soler MD Results (CT scan ) 11/27/2023 Refill [facility] [address] [place] [address] Dexter Lofton MD Refill Request (Atorvastatin) 10/31/2023 Orders Only [facility] Scanner 1 scan: (1-Ord) [facility], CT CHEST WITHOUT CON, 10/31/2023 10/26/2023 9:30 AM CDT Telemedicine [facility] [address] [place] [address] Sourav Mac MD panceas cyst 10/23/2023 9:30 AM CDT Office Visit [facility] [address] [place] [address] Paul Soler MD Follow Up (bronchitis) 10/23/2023 Travel 10/13/2023 9:36 AM CDT - 10/13/2023 11:59 PM CDT Hospital Encounter [facility] [address] [place] [address] Radha Hernandez MD 10/13/2023 Travel 10/11/2023 9:41 AM CDT - 10/11/2023 11:59 PM CDT Hospital Encounter [facility] [address] [place] [address] Radha Hernandez MD 10/11/2023 Travel 10/10/2023 10:25 AM CDT Anesthesia Event [facility] [address] [place] [address] José Manuel Hooker MD 10/10/2023 9:55 AM CDT - 10/10/2023 10:55 AM CDT Surgery [facility] [address] [place] [address] Sourav Mac MD ENDOSCOPIC ULTRASOUND FINE NEEDLE ASPIRATE UPPER 10/10/2023 8:44 AM CDT - 10/10/2023 12:39 PM CDT Hospital Encounter [facility] [address] [place] [address] Sourav Mac MD Pancreas cyst (Primary Dx) Discharge Disposition: Home Self Care 10/09/2023 9:36 AM CDT - 10/09/2023 11:59 PM CDT Hospital Encounter [facility] [address] [place] [address] Radha Hernandez MD 10/09/2023 Travel 10/06/2023 9:33 AM CDT - 10/06/2023 11:59 PM CDT Hospital Encounter [facility] [address] [place] [address] Radha Hernandez MD 10/06/2023 Travel 10/04/2023 9:35 AM CDT - 10/04/2023 11:59 PM CDT Hospital Encounter [facility] [address] [place] [address] Radha Hernandez MD 10/04/2023 Travel 10/02/2023 9:33 AM CDT - 10/02/2023 11:59 PM CDT Hospital Encounter [facility] [address] [place] [address] Radha Hernandez MD 10/02/2023 Travel 09/29/2023 9:33 AM CDT - 09/29/2023 11:59 PM CDT Hospital Encounter [facility] [address] [facility] [place] [place] [address] Radha Hernandez MD 09/29/2023 Travel 09/27/2023 9:32 AM CDT - 09/27/2023 11:59 PM CDT Hospital Encounter [facility] [address] [place] [address] Radha Hernandez MD 09/27/2023 Travel 09/25/2023 9:31 AM CDT - 09/25/2023 11:59 PM CDT Hospital Encounter [facility] [address] [facility] [place] [place] [address] Radha Hernandez MD 09/25/[address] [facility] [address] [place] [address] [place] [address] Floyd Patel MD Results 09/25/2023 Travel 09/22/2023 11:00 AM CDT Ancillary Procedure [facility] [address] [place] [address] 09/22/2023 Travel 09/20/2023 9:35 AM CDT - 09/20/2023 11:59 PM CDT Hospital Encounter [facility] [address] [place] [address] Radha Hernandez MD 09/20/2023 Travel 09/18/2023 9:34 AM CDT - 09/18/2023 11:59 PM CDT Hospital Encounter [facility] [address] [place] [address] Radha Hernandez MD 09/18/2023 Travel 09/15/2023 9:39 AM CDT - 09/15/2023 11:59 PM CDT Hospital Encounter [facility] [address] [place] [address] Radha Hernandez MD 09/15/2023 Travel 09/13/2023 9:32 AM CDT - 09/13/2023 11:59 PM CDT Hospital Encounter [facility] [address] [place] [address] Radha Hernandez MD 09/13/2023 Travel 09/11/2023 9:43 AM CDT - 09/11/2023 11:59 PM CDT Hospital Encounter [facility] [address] [place] [address] Radha Hernandez MD 09/11/2023 Refill [facility] [address] [facility] [place] [address] Dexter Lofton MD Refill Request (Tamsulosin) 09/11/2023 Travel 09/08/2023 9:31 AM CDT - 09/08/2023 11:59 PM CDT Hospital Encounter [facility] [address] [place] [address] Radha Hernandez MD 09/08/2023 Travel 09/06/2023 9:37 AM CDT - 09/06/2023 11:59 PM CDT Hospital Encounter [facility] [address] [place] [address] Radha Hernandez MD 09/06/2023 Telephone [facility] [address] [place], [place] [id number] Mark Finley MD Abstract (Plan of care ) 09/06/2023 Travel from Last 3 Months Immunizations Name [...] 10/23/2023 9:16 AM CDT Plan of Treatment Upcoming Encounters Date Type Department Care Team (Late st Contact Info) Description 12/12/2023 6:30 AM CDT Appointment [facility] [address] [place] [address] Goals Goal Patient Goal Type Associated Problems Recent Progress Patient-Stated? Author BLOOD PRESSURE - MAINTAINS BP less than 140/90 Blood Pressure No Arya Stone MD Medical Devices Implanted Type Area Stock Wetter Device Identifier Shelf Expiration Date Model / Serial / Lot [id number] e Canclls Crushed 60cc [] Implanted:Qty: 1 on 08/22/2006 at [facility] Explanted:at [facility] (Quantity not on file) Spine Allosource 05/17/2011 [id number]# / [id number] / [id number] e Canclls Crushed 30cc [[id number]] Implanted:Qty: 1 on 08/22/2006 at [facility] Explanted:at [facility] (Quantity not on file) Spine Allosource 11/16/2010 [id number]# / [id number] / Vesna Dayanara [id number] - [id number] Implanted:Qty: 6 on 08/22/2006 at [facility] Spine HOWMEDICA [id number]# / / Screw Polyaxial 6.5x45mm - [id number] Implanted:Qty: 6 on 08/22/2006 at [facility] Spine [employer] [id number]# / / Marin Dayanara Rad 70mm 108mm Radius - [id number] Implanted:Qty: 2 on 08/22/2006 at [facility] Spine [employer] [id number]# / / Wedge Tag Acufex 3.7mm - [id number] Implanted:Qty: 3 on 08/25/2011 at [facility] Left: Shoulder [employer] [id number]# / / [id number] Screw Cerv Ant 4x15mm [place] Translational Va Slf Drill - [id number] Implanted:Qty: 3 on 03/04/2022 by Donald Alba MD at [facility] N/A: Spine Medtronic Spine/Ortho [id number] / / Plate Cerv 1lvl 25mm [place] Vision Elite Ant - [id number] Implanted:Qty: 1 on 03/04/2022 by Donald Alba MD at [facility] N/A: Spine Medtronic Spine/Ortho [id number] / / [id number] e Matrix 1cc [place] Plus Paste Dbm Implanted:Qty: 1 on 03/04/2022 by Donald Alba MD at [facility] Explanted:at [facility] (Quantity not on file) N/A: Spine Medtronic Spine/Ortho 10/12/2023 [id number] / [id number] / [id number] Spinal Graft Block Robert Implanted:Qty: 1 on 03/04/2022 by Donald Alba MD at [facility] Explanted:at [facility] (Quantity not on file) N/A: Spine Medtronic Spine/Ortho 02/24/2024 [id number] / [id number] / Screw Cerv Ant 4x13mm [place] Translational Va Slf Drill - [id number] Implanted:Qty: 1 on 03/04/2022 by Donald Alba MD at [facility] N/A: Spine Medtronic Spine/Ortho [id number] / / Tissue Pericardium 0.8x8cm Photofix Bovine - [id number] Implanted:Qty: 1 on 06/29/2023 by Ahmet Levy MD at [facility] Left: Groin Cryozlien Inc 02/03/2025 [id number] / / [id number] Description:CryoLife PhotoFi x Decellularized Bovine Pericardium 0.8cm x 8cm; Lot Number [id number]; Reference Number [id number]; Implanted to the left [...] CDT SCAN-CARDIAC REHABILITATION 09/06/2023 9:46 AM CDT from Last 3 Months Results * SCAN-CT INTERPRETATION (10/31/2023 12:00 AM CDT) Anatomical Region Laterality Modality Other Scanner OTHER * SCAN-CARDIAC REHABILITATION (10/13/2023 9:57 AM CDT) Only the most recent of16 resultswithin the time period is included. Scanner OTHER * CEA FLUID (10/10/2023 10:53 AM CDT) CEA FLUID 5.3 Not Estab. ng/mL 10/12/2023 1:10 PM CDT [facility] ([facility]) Comment: Rudolph SouthPeak Electrochemiluminescence Immunoassay (ECLIA) The reference interval(s) and [...] AM CDT 10/10/2023 11:13 AM CDT Narrative [facility] ([facility]) - 10/12/2023 1:10 PM CDT Test(s) 307298-DEU, Fluid was developed and its performance characteristics determined by [facility]. It has not been cleared or approved by the Food and Drug Administration. Performed at: ??01 - [address] ??[id number] Software Integration Developer: Bailey Burrows MD, Phone: ??[phone] Sourav Mac MD BODY FLUID [facility] ([facility]) [address] [place] [address], * AMYLASE OTHER BODY FLUID (10/10/2023 10:53 AM CDT) Amylase Body [place]ld [address]758 U/L 10/11/19 2:09 PM CDT [facility] ([facility]) Comment: ?: BODY FLUID TYPE : ?AMYLASE ?: ?: : : ?: Lymph ? : ?50 - 83 ?: ?: : : ?: Peritoneal ?: ? : ?: Fluid ? : ?88 - 109 ? : ?: : : ?: Saliva ?: ? : ?: (Mixed Glands) ??: ? 80524 - 149024 ?: ?: : : ? Jose W, Zach Fleming. Reference Intervals ? for Adults and Children 2007. Ninth ? Edition (V9.1) [employer], ? Rot[place]reuz; [place]: December 2008. Results confirmed on dilution. Cyst Fluid SPECIMEN FROM PANCREAS / Unknown Non-Blood / Unknown 10/10/2023 10:53 AM CDT 10/10/2023 11:13 AM CDT Narrative [facility] ([facility]) - 10/11/2023 2:09 PM CDT Performed at: ??01 - [facility] [place], [place] ??[id number] Software Integration Developer: Dick Villalpando MD, Phone: ??[phone] Sourav Mac MD BODY FLUID [facility] ([facility]) [address] [place] [address] * PATH FNA CYTOLOGY ASP CYTOLOGY (10/10/2023 10:53 AM CDT) Case Report Medical Cytology Report ? Case: [id number] ? Authorizing Provider: ??Sourav Mac, ?? Collected: ? 10/10/2023 1053 ? MD ? Ordering Location: ? [facility] ?Received: ?10/10/2023 1230 ? Hospital ? Pathologist: ? Belén Sultana ? MD Pey[place] ? Specimen: ?Pancreas, Priority: CEA, Amylase ? 10/11/2023 10:[address] [facility] Final Diagnosis CYST, PANCREAS TAIL, ENDOSCOPIC ULTRASOUND-GUIDED FINE NEEDLE ASPIRATION: Marked acute inflammation; negative for malignancy 10/11/2023 10:44 AM CDT [facility]-C ENTRAL LABORATORY Clinical Information Mr. Ugarte is a 68 y.o. with a cystic lesion in the pancreatic tail. The endosonographic appearance is consistent with a pancreatic pseudocyst. Fine needle aspiration for fluid performed. 10/11/2023 10:44 AM CDT [facility]- ENTRAL LAB[facility] Gross Description A) SOURCE: Pancreas, fine needle aspiration The specimen consists of 2 cc of light yellow opaque fluid from which the following is prepared: ? -1 DiffQuik stained slide ? -1 Papanicolaou stained ThinPrep slide ?? 10/11/2023 10:44 AM CDT [facility] EN[facility]AL LAB[facility] Adequacy Assessment 10/11/2023 10:44 AM CDT [facility] Microscopic Description Specimen adequacy: Adequate for interpretation. All slides were reviewed. The microscopic appearance substantiates the diagnosis. 10/11/2023 10:44 AM CDT [facility] Additional Information Cytology is screened at [facility] - [address] [address] and [facility] - [address] [place] [address] and [facility] - [address] [place] [address] Interpreted at [facility] - [address] [address] 10/11/2023 10:44 AM CDT [facility] Cyst Fluid SPECIMEN FROM PANCREAS / Unknown 10/10/2023 10:53 AM CDT 10/10/2023 12:30 PM CDT Sourav Mac MD PATHOLOGY/CYTO [facility]Y [facility] [address] [place] [address], * ENDOSCOPY (10/10/2023 10:27 AM CDT) 10/10/2023 10:2 7 AM CDT Narrative Transcriptions Sourav Mac MD - 10/10/2023 11:28 AM CDT [facility] Patient Name: Vilma Ugarte Procedure Date: 10/10/2023 Gender: Male Date of : 1955 Admit Type: Ambulatory Procedure: Upper EUS Proceduralist: Sourav Mac MD - [facility] Referring MD: Sourav Mac MD Indications/Pre-Op Diagnosis: Pancreatic cyst on CT scan Medications: Monitored Anesthesia Care Procedure Description: Risk of bleeding, infection, perforation, pancreatitis, need for surgery, remote chance of and alternatives were discussed, andthe patient gave informed consent. The endoscope [id number] was introduced through the mouth, and advanced [...] - 100 mg/dL 10/10/2023 9:40 AM CDT [facility] Blood BLOOD SPECIMEN / Unknown 10/10/2023 9:35 AM CDT 10/10/2023 9:40 AM CDT Sourav Mac MD [facility] [address] [place] [address], * SCAN CORRESP-EKG RESULTS (10/05/2023 2:25 PM [...] PM CDT ECHOCARDIOGRAM VILMA UGARTE ?Accession#: ?? [id number] : ?1955 68 years Study Date: ?? 09/22/2023 11:23:10 AM Gender: ? BP: ? 125/67 mmHg Height: 168.00 cm ? BSA: ?1.87 m? ? ? Weight: 77.00 kg ?Tech: ? MSR ?Referring MD: Site: ? [facility] Reading Location: Mobile OP Patient Location: [...] by an [facility] accredited facility. CC: [facility] (med records) [facility]. ??Final ?? Procedure Note Annette Elizabeth, [facility] - 09/22/2023 ECHOCARDIOGRAM VILMA UGARTE : 1955 68 years Study Date: 09/22/2023 11:23:10 AM Gender: BP: 125/67 mmHg Height: 168.00 cm BSA: 1.87 m? ? ? Weight: 77.00 kg Tech: CHERYL Referring MD: Site: [facility] Reading Location: Mobile OP [...] by an [facility] accredited facility. CC: [facility] (med [facility]) [facility]. Final Floyd Patel MD ECHO ORD from [...] Status Discussion: Per Existing Order Care Teams Bid Writer Relationship Specialty Start Date End Date Emely Henson PA-C [address] [place] [address] PCP - General Emergency Medicine 04/20/23 Paul Soler MD [address] [place] [address] Pulmonology Pulmonary Medicine 09/30/22
--- NOTE | 2023-12-07 07:15 | CRLHL7_ITS ---
For Patients: As a result of the Century Cures Act, medical imaging exams and procedure reports are released immediately into your electronic medical record. You may view this report before your referring provider. If you have questions, please contact your health care provider. INDICATION: Renal mass TECHNIQUE: Multiplanar imaging of the abdomen and pelvis was performed without and with 20 cc of Dotarem contrast material IV. COMPARISON: Abdomen/pelvis CT of 12/04/2023 and abdomen MRI of 07/27/2023 FINDINGS: Small benign-appearing renal parenchymal cysts are present bilaterally. The largest lesion is a bilocular cyst measuring up to 1.7 cm and located in the posterior inferior left kidney. This contains a thin septation. No diffusion restriction is evident in either kidney. No hydronephrosis is evident. The liver normal in size, shape and signal. No bile duct dilation is evident. The spleen, adrenal glands and pancreas appear to be within normal limits. The previously demonstrated pancreatic tail pseudocyst has resolved. No lymphadenopathy or free fluid is evident. No bowel abnormality is demonstrated. IMPRESSION: 1. Small benign-appearing renal parenchymal cysts bilaterally. 2. Resolution of previously demonstrated pancreatic tail pseudocyst. Dictated by Reuben Cassidy MD @ 12/07/2023 7:59:47 PM (Electronically Signed)
== END 2023-12-07 06:58 | disposition home or self-care (01) ==
LOC: MRI 06:58
PROVIDERS: PCP Physician Assistant Medical; Visit Provider Physician Assistant Medical
DX: N28.89 Other specified disorders of kidney and ureter (principal); N28.1 Cyst of kidney, acquired
CPT/HCPCS: 74183; A9575

== ENCOUNTER 2024-01-04 09:57 | Outpatient (RCR) | payer MEDICARE, BC, SELFPAY | END 2024-07-02 23:59 | disposition home or self-care (01) | LOC: CCIC 09:57 | PROVIDERS: PCP Physician Assistant Medical; Visit Provider Internal Medicine Hematology & Oncology | DX: K86.9 Disease of pancreas, unspecified (principal); R63.4 Abnormal weight loss; D50.9 Iron deficiency anemia, unspecified; J98.4 Other disorders of lung | CPT/HCPCS: 82607; 82728; 83540; 83550; 84443; 85045; 97110; 99203; 99204 ==

== ENCOUNTER 2024-01-04 11:29 | Outpatient (BNVA) | payer MEDICARE, BC, SELFPAY | END 2024-01-04 12:29 | disposition home or self-care (01) | PROVIDERS: PCP Physician Assistant Medical; Referring Provider Physician Assistant Medical; Visit Provider Internal Medicine Hematology & Oncology | DX: R63.4 Abnormal weight loss (principal); K86.9 Disease of pancreas, unspecified; K86.2 Cyst of pancreas; K86.89 Other specified diseases of pancreas; D50.9 Iron deficiency anemia, unspecified; J98.4 Other disorders of lung; R91.8 Other nonspecific abnormal finding of lung field; I10 Essential (primary) hypertension; E11.65 Type 2 diabetes mellitus with hyperglycemia; R79.89 Other specified abnormal findings of blood chemistry; R53.81 Other malaise; R97.8 Other abnormal tumor markers | CPT/HCPCS: 82607; 82728; 82746; 82784; 83520; 83540; 83550; 84155; 84165; 84443; 85045; 86301; 86334 ==

== ENCOUNTER 2024-01-15 09:00 | Outpatient (CLI) | payer MEDICARE, BC, SELFPAY ==
--- OUTSIDE RECORDS SUMMARY | 2024-01-15 09:04 | XMS_ITS | Clinical Summary ---
Author Organization [email or web address] Address [place], [place] [address] Care Team Providers Care Sheep Sorter Name Role Phone Emely Henson PA-C Primary Care Provider + [phone] Paul Soler MD Unavailable [phone] Allergies Active Allergy Reactions Criticality Noted Date [...] mouth once daily. 90 Tablet 11/16/2022 Active warfarin (COUMADIN) 7.5 mg tabletIndications: Paroxysmal [...] evening, Informant: Patient's Recall, Reported on 07/06/2023 gabapentin (NEURONTIN) 600 mg tabletIndications: Diabetic peripheral [...] daily with meals. 60 Tablet 07/01/2023 Active acetaminophen (TYLENOL EXTRA STRGTH) 500 mg [...] times daily. 90 Tablet 3 07/28/2023 Active atorvastatin (LIPITOR) 40 mg tabletIndications: Type 2 diabetes mellitus without complication, without long-term current use of insulin (HC),Dyslipidemia TAKE ONE TABLET BY MOUTH AT BEDTIME 90 Tablet 11/28/2023 Active tamsulosin (FLOMAX) 0.4 mg capsuleIndications :Lower urinary tract symptoms (LUTS) Take 1 Capsule (0.4 mg) by mouth once daily after a meal. 90 Capsule 12/13/2023 Active Jardiance 10 mg tablet Take 10 mg by mouth once daily. 11/26/2023 Active ferrous sulfate, 65 mg elemental, 324 mg (65 mg iron) Delayed-Release tablet Take 324 mg by mouth once daily with a meal. 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 04/19/2012 10/15/2013 Overview: Warfarin - started 10/2008; indicated for a fib CHADS2=2 (DM, HTN); goal INR 2.0- 3.0; Anticoagulation monitoring, INR range 2-3 11/20/2010 03/07/2023 Overview: Warfarin - started 10/2008; indicated for a fib CHADS2=2 (DM, HTN) Fever 02/20/2010 05/25/2022 longterm (current) use of anticoagulants 12/25/2008 11/20/2010 Overview: [...] Encounters Date Type Department Care Team Description 12/12/2023 5:56 AM CDT - 12/12/2023 8:45 AM CDT Hospital Encounter [facility] [address] [place] [address] Paul Soler MD Lung mass; Abnormal chest CT Discharge Disposition: Home Self Care 12/12/2023 Telephone [facility] [address] [place] [address] guided biopsy today 12/11/2023 3:25 PM CDT Office Visit [facility] [address] [place] [address] Shar Perez DO Preoperative Exam (12/12/23, lung biopsy, [facility]) 12/11/2023 Travel 12/11/2023 Telephone [facility] [address] [place] [address] Dexter Lofton MD Follow Up (H and P report ) 12/11/2023 Telephone [facility] [address] [place] [address] Sourav Mac MD 12/11/2023 Refill [facility] [address] [place] [address] Dexter Lofton MD Refill Request (Tamsulosin) 12/11/2023 Telephone [facility] [address] [place] [address] Paul Soler MD Error-please disregard 12/05/2023 Telephone [facility] [address] [place] [address] Paul Soler MD Results (CT scan ) 11/27/2023 Refill [facility] [address] [place] [address] Dexter Lofton MD Refill Request (Atorvastatin) 10/31/2023 Orders Only [facility] Scanner 1 scan: (1-Ord) [facility], CT CHEST WITHOUT CON, 10/31/2023 10/26/2023 9:[address] [facility] [address] [place] [address] Sourav Mac MD panceas cyst 10/23/2023 9:30 AM CDT Office Visit [facility] [address] [place] [address] Paul Soler MD Follow Up (bronchitis) 10/23/2023 Travel from Last 3 Months Immunizations Name Administration Dates Next Due COVID-19 vaccine (Moderna 100mcg/0.5mL) PF, MDV 08/19/2020,07/22/2020 COVID-19 vaccine (Pfizer-Bio NTech 30mcg/0.3mL) 12YO+ BIVALENT PF, MDV 05/10/2022 HepA-HepB (Twinrix) 08/19/2003 Hepatitis B (Adult) 11/13/2014,05/15/2014,2013 Influenza, High-dose Quadriv alent Inactivated 05/15/2023 Influenza, IIV3 (Age 6-35 mos) 04/22/2011 Influenza, [...] 2 Heart Disease Father d 85 yo [place] aft er hip fracture Arthritis Mother Heart Disease Mother A fib Hypertension Mother at 92 Other Other Factor V Leiden Diabetes Sister 1 dx'ed at 46 Other Sister 2 MS Cancer-breast Sister 3 Relation Name Status Comments Brother 1 Alive Brother 2 Alive Brother 3 Brother 4 Father (Age 85) related to broken hip Mother (Age 92) Old age Other Sister 1 Sister 2 Sister 3 Sister 4 Alive Sister 5 Alive Sister 6 Alive Social History Tobacco Use Types Packs/Day Years Used Date Smoking Tobacco: Former Cigarettes 1 17 1 970 - 06/12/1986 Smokeless Tobacco: Never Tobacco Cessation:Counseling Given: No Alcohol Use Standard Drinks/Week Comments Yes 0 [...] Sign Reading Time Taken Comments Blood Pressure 132/78 12/12/2023 8:20 AM CDT Pulse 68 12/12/2023 8:20 AM CDT Temperature 37.2 ??C (99 ??F) 12/12/2023 6:30 AM CDT Respiratory Rate 18 12/12/2023 8:20 AM CDT Oxygen Saturation 98% 12/12/2023 8:20 AM CDT Inhaled Oxygen Concentration - - Weight 71.2 kg (156 lb 14.4 oz) 12/12/2023 6:23 AM CDT Height 170.2 cm (5' 7) 12/12/2023 6:23 AM CDT Body Mass Index 24.57 12/12/2023 6:23 AM CDT Plan of Treatment Not on file Goals Goal Patient Goal Type Associated Problems Recent Progress Patient-Stated? Author BLOOD PRESSURE - MAINTAINS BP less than 140/90 Blood Pressure No Arya Stone MD Medical Devices Implanted Type Area Fiberglass Model Maker Device Identifier Shelf Expiration Date Model / Serial / Lot [id number] e Canclls Crushed 60cc [[id number]] Implanted:Qty: 1 on 08/22/2006 at [facility] Explanted:at [facility] (Quantity not on file) Spine Allosource 05/17/2011 [id number]# / [id number] / [id number] e Canclls Crushed 30cc [[id number]] Implanted:Qty: 1 on 08/22/2006 at [facility] Explanted:at [facility] (Quantity not on file) Spine Allosource 11/16/2010 [id number]# / [id number] / Vesna Dayanara [id number] - [id number] Implanted:Qty: 6 on 08/22/2006 at [facility] Spine HOWMEDICA [id number]# / / Screw Polyaxial 6.5x45mm - [id number] Implanted:Qty: 6 on 08/22/2006 at [facility] Spine [employer]MED[employer] [id number]# / / Marin Dayanara Rad 70mm 108mm Radius - [id number] Implanted:Qty: 2 on 08/22/2006 at [facility] Spine [facility] [id number]# / / Wedge Tag Acufex 3.7mm - [id number] Implanted:Qty: 3 on 08/25/2011 at [facility] Left: Shoulder [employer] [id number]# / / [id number] Screw Cerv Ant 4x15mm Jones Translational Va Slf Drill - [id number] Implanted:Qty: 3 on 03/04/2022 by Donald Alba MD at [facility] N/A: Spine Medtronic Spine/Ortho [id number] / / Plate Cerv 1lvl 25mm Jones Vision Elite Ant - [id number] Implanted:Qty: 1 on 03/04/2022 by Donald Alba MD at [facility] N/A: Spine Medtronic Spine/Ortho [id number] / / [id number] e Matrix 1cc Milton Plus Paste Dbm Implanted:Qty: 1 on 03/04/2022 by Donald Alba MD at [facility] Explanted:at [facility] (Quantity not on file) N/A: Spine Medtronic Spine/Ortho 10/12/2023 [id number] / [id number] / [id number] Spinal Graft Block Robert Implanted:Qty: 1 on 03/04/2022 by Donald Alba MD at [facility] Explanted:at [facility] (Quantity not on file) N/A: Spine Medtronic Spine/Ortho 02/24/2024 [id number] / [id number] / Screw Cerv Ant 4x13mm Jones Translational Va Slf Drill - [id number] Implanted:Qty: 1 on 03/04/2022 by Donald Alba MD at [facility] N/A: Spine Medtronic Spine/Ortho [id number] / / Tissue Pericardium 0.8x8cm Photofix Bovine - [id number] Implanted:Qty: 1 on 06/29/2023 by Ahmet Levy MD at [facility] Left: Groin Cryolife Inc 02/03/2025 [id number] / / [id number] Description:CryoLife PhotoFi x Decellularized Bovine Pericardium 0.8cm x 8cm; Lot Number [id number]; Reference Number [id number]; Implanted to the left groin by Dr. Levy on 06/29/2023 Procedures Procedure Name Priority Date/Time Associated Diagnosis Comments CT CHEST LIMITED WO Routine 12/12/2023 8 :28 AM CDT Lung mass Abnormal chest CT GLUCOSE METER Timed 12/12/2023 6:43 AM CDT HEMOGLOBIN STAT 12/12/2023 6:10 AM CDT PLATELET COUNT STAT 12/12/2023 6:10 AM CDT PROTIME-INR STAT 12/12/2023 6:10 AM CDT POTASSIUM STAT 12/11/2023 4:25 PM CDT Preop general physical exam SCAN-CT INTERPRETATION 12:00 AM CDT from Last 3 Months Results * CT CHEST LIMITED WO (12/12/2023 8:28 AM CDT) Anatomical Region Laterality Modality CHEST Computed Tomogra phy, X-Ray Angiography, Other 12/12/2023 8:28 AM CDT Impressions 12/12/2023 4:37 PM CDT 1. ??Previously described areas of masslike consolidation within the bilateral upper lobes have partially resolved, likely infectious or inflammatory. As such, CT- guided lung biopsy was deferred at this time. Recommend follow-up chest CT in 1-3 months to evaluate for complete resolution. 2. ??7 mm right upper lobe nodule. This can also be reevaluated on short interval follow-up chest CT. Dr. Pollock was contacted by me on 12/12/2023 4:35 PM CDT and verbalized understanding above findings and decision to defer biopsy. Narrative 12/12/2023 4:37 PM CDT For Patients: As a result of the Cures Act, medical imaging exams and procedure reports are released immediately into your electronic medical record. You may view this report before your referring provider. If you have questions, please contact your health care provider. EXAM: CT CHEST LIMITED WO LOCATION: [facility] DATE: 12/12/2023 INDICATION: Lung Mass Abnormal Chest Ct COMPARISON: None. TECHNIQUE: CT chest without IV contrast. Multiplanar reformats were obtained. Dose reduction techniques were used. CONTRAST: None. FINDINGS: Limited chest CT of the chest was performed in preparation for potential lung biopsy. Previously described areas of masslike consolidation within the bilateral upper lobes have near completely resolved. These areas of consolidation now appear predominantly groundglass with some underlying reticulation. Within the area of consolidation in the right. There is a small underlying residual lung nodule measuring approximately 7 mm (series 2 image 25). No target for lung biopsy identified. Prior TAVR. Procedure Note Mckinley Jara MD - 12/12/2023 For Patients: As a result of the Cures Act, medical imagingexams and procedure reports are released immediately into your electronicmedical record. You may view this report before your referring provider.If you have questions, please contact your health care provider. EXAM: CT CHEST LIMITED WO LOCATION: [facility] DATE: 12/12/2023 INDICATION: Lung Mass Abnormal Chest Ct COMPARISON: None. TECHNIQUE: CT chest without IV contrast. Multiplanar reformats wereobtained. Dose reduction techniques were used. CONTRAST: None. FINDINGS: Limited chest CT of the chest was performed in preparation for potentiallung biopsy. Previously described areas of masslike consolidation withinthe bilateral upper lobes have near completely resolved. These areas ofconsolidation now appear predominantly groundglass with some underlyingreticulation. Within the area of consolidation in the right. There is asmall underlying residual lung nodule measuring approximately 7 mm (series2 image 25). No target for lung biopsy identified. Prior TAVR. IMPRESSION: 1. Previously described areas of masslike consolidation within thebilateral upper lobes have partially resolved, likely infectious orinflammatory. As such, CT- guided lung biopsy was deferred at this time.Recommend follow-up chest CT in 1-3 months to evaluate for completeresolution. 2. 7 mm right upper lobe nodule. This can also be reevaluated on shortinterval follow-up chest CT. Dr. Pollock was contacted by me on 12/12/2023 4:35 PM CDT and verbalizedunderstanding above findings and decision to defer biopsy. Paul Soler MD CT * (ABNORMAL) GLUCOSE METER (12/12/2023 6:43 AM CDT) GLUCOSE METER 219(H) 65 - 100 mg/dL 12/12/2023 6:44 AM CDT [facility] Blood BLOOD SPECIMEN / Unknown 12/12/2023 6:43 AM CDT 12/12/2023 6:44 AM CDT Paul Soler MD CHEMISTRY [facility] SENDOUT INTERNAL ZIP [id number] [place] [address] * Platelet Count (12/12/2023 6:10 AM CDT) PLATELET COUNT 339 140 - 440 thou/cu mm 12/12/2023 6:28 AM CDT [facility] MPV 9.2 6.5 - 11.0 fL 12/12/2023 6:28 AM CDT [facility] Blood BLOOD SPECIMEN / Unknown Venipuncture / Unknown 12/12/2023 6:10 AM CDT 12/12/2023 6:14 AM CDT [facility] - 12/12/2023 6:28 AM CDT If not done within past 14 days. Nurse to release order. If not done within past 14 days. Nurse to release order. José Manuel Chase MD HEMATOLOGY [facility] SENDOUT INTERNAL ZIP [id number] [address] [place] [address] * (ABNORMAL) Hemoglobin (12/12/2023 6:10 AM CDT) HEMOGLOBIN 11.5(L) 13.5 - 17.5 g/dL 12/12/2023 6:28 AM CDT [facility] MCV 74(L) 80 - 100 fL 12/12/2023 6:28 AM CDT [facility] Blood BLOOD SPECIMEN / Unknown Venipuncture / Unknown 12/12/2023 6:10 AM CDT 12/12/2023 6:14 AM CDT [facility] - 12/12/2023 6:28 AM CDT If not done within past 14 days. Nurse to release order. If not done within past 14 days. Nurse to release order. José Manuel Chase MD HEMATOLOGY [facility] SENDOUT INTERNAL ZIP [id number] [address] [place] [address] * Protime-INR (12/12/2023 6:10 AM CDT) INR 1.1 <1.3 12/12/2023 6:34 AM CDT [facility] PROTIME 12.3 10.3 - 12.3 sec 12/12/2023 6:34 AM CDT [facility] Blood BLOOD SPECIMEN / Unknown Venipuncture / Unknown 12/12/2023 6:10 AM CDT 12/12/2023 6:14 AM CDT [facility] - 12/12/2023 6:34 AM CDT ?Therapeutic Range 2.0-3.0 for most anticoagulated patients [...] seconds if the patient is on UFH. José Manuel Chase MD HEMATOLOGY [facility] SENDOUT INTERNAL ZIP [address] [address] [place] [address] * POTASSIUM (12/11/2023 4:25 PM CDT) POTASSIUM 4.7 3.5 - 5.1 mmol/L 12/11/2023 5:21 PM CDT [facility] Blood BLOOD SPECIMEN / Unknown Venipuncture / Unknown 12/11/2023 4:25 PM CDT 12/11/2023 4:25 PM CDT Shar Perez DO CHEMISTRY [facility] [address] [place] [address] * SCAN-CT INTERPRETATION (10/31/2023 12:00 AM CDT) Anatomical Region Laterality Modality Other Scanner OTHER from Last 3 Months Advance [...] Status Discussion: Per Existing Order Care Teams Sheep Sorter Relationship Specialty Start Date End Date Emely Henson PA-C [address] [place] [address] PCP - General Emergency Medicine 04/20/23 Paul Soler MD [address] [place] [address] Pulmonology Pulmonary Medicine 09/30/22
--- OUTSIDE RECORDS SUMMARY | 2024-01-15 09:04 | XMS_ITS | Continuity of Care Document ---
Author Organization [facility] Address [address] [place] [address] Phone Care Team Providers Care Real Estate Consultant Name Role Phone Sumit Castillo MD Unavailable [...] Date Provider Providers Copied on Encounter [facility], [address], [place], [address], [place] tel:[phone] [facility] No Information 8 Jonathan Arana. [facility], [address], [place], [place], [id number] , [place]. [phone] Office/outpat ient visit,est, low [facility], [address] [place], [place] [address], [place], [address], [place] tel:[phone] [facility] [place] No Information Apr-1 0-200 8 Mehbod Amir. [facility], [address], [place], [place], [id number] , [place]. tel:[phone] Referring Provider: Mckinley Cardona, [facility] Yadira [facility], [place], [address]. tel:[phone] Office/outpat ient visit,est, low [facility], [address] [place], [place] [address]ite [facility], [place], [place], [facility], [place] tel:[phone] [facility] [place] No Information Jan-0 9-200 7 Mehbod Amir. [facility], [address], [place], [place], [id number] , [place]. [phone] Referring Provider: Mckinley Cardona, [facility] Y[facility], [place], [address]. tel:[phone] Office/outpat ient visit,est, low [facility], [address] [place] [address], [place], [facility], [place] tel:[phone] [facility] No Information Bong-2 8-200 7 Mehbod Amir. [facility], [address], [place], [place], [id number] , [place]. [phone] Referring Provider: Mckinley Cardona, [facility] Yadira [facility], [place], [address]. tel:[phone] [facility], [address] [place], [place] [address], [place], [facility], [place] tel:[phone] [facility] [place] No Information October-1 0-200 7 Mehbod Amir. [facility], [address], [place], [place], [id number] , [place]. tel:[phone] Referring Provider: Mckinley Cardona [facility], [place], [address]. tel:[phone] [facility], [address] [place], [place] [address], [place], [address], [place] tel:[phone] [facility] No Information Aug- 1-200 7 Mehbod Amir. [facility], [address], [place], [place], [id number] , [place]. tel:[phone] Referring Provider: [facility], [place], [address]. tel:[phone] Office consultation, moderate [facility], [address], [place], [address], [place] tel:[phone] [facility] [place] No Information 5200 6 Mehbod Amir. [facility], [address], [place], [place], [id number] , [place]. tel:[phone] Referring Provider: Mckinley Cardona [facility], [place], [address]. tel:[phone] Family History Family Member Type Diagnosis Age At Onset No Information Payers Payer name Insurance type Covered alliance party ID Authorjaja wright(s) [employer] AM [id number] [facility] [id number] Social History Type Description Quantity Date Captured [...]
--- NOTE | 2024-01-15 10:10 | W.ANESCHARGE ---
Anesthesia Charges Start Date/Time Anesthesia Start Date: 01/15/24 Anesthesia Start Time: 09:40 Stop Date/Time Anesthesia Stop Date: 01/15/24 Anesthesia Stop Time: 10:08
== END 2024-01-15 09:01 | disposition home or self-care (01) ==
LOC: OP CLINIC 09:01
PROVIDERS: PCP Physician Assistant Medical; Visit Provider Surgery
DX: D50.0 Iron deficiency anemia secondary to blood loss (chronic) (principal); K57.30 Diverticulosis of large intestine without perforation or abscess without bleeding
CPT/HCPCS: 00812; 45378; J2704

== ENCOUNTER 2024-01-25 08:45 | Outpatient (RCR) | payer MEDICARE, BC, SELFPAY ==
--- NOTE | 2023-12-06 15:38 | PT.OPE ---
PT [facility] Outpatient Eval PT [facility] Outpatient Eval Start: 12/06/23 09:22 Freq: Status: Active Protocol: Document 12/06/23 09:55 LSL (Rec: 12/06/23 10:57 LSL [id number]) E-signed By Angie Peoples PT Physical Therapy Outpatient Evaluation Insurance Information Recert Due Date 03/05/24 Insurance Name Medicare B,Blue Cross/Blue Shield Medical Diagnosis LBP Treating Diagnosis pain, weakness, impaired ROM, impaired mobility Referring MD Henson Subjective Subjective Pt. reports he was doing work in his shed using a pole to try and move his corn planter and as he put his weight into it, it gave way and he fell backwards over the hitch on his trailer and hurt his back and knee. 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 Pain is isolated in his back without radicular pain. Pt. had lumbar CT scan at ER with following finding Severe multilevel lumbar spondylosis, likely resulting in severe right neural foraminal stenosis at L5-S1. No high-grade stenosis of the osseous spinal canal at any lumbar spinal level. Pt. reports he's getting good reports about his cardiac system. He is on day 2 of a steroid pack. PMH - spots on B lungs that they do not think is cancer, but want a biopsy; and having an MRI of kidneys soon as they are trying to figure out why he is losing weight Pain Comments worst 01/19 Date of Last Physician Visit 11/29/23 Current Work Status Retired Preferred Name Cecil Precautions Weight Bearing Status Full Weight Bearing Therapy Limitations/Systems Review Other Medical Problem Objective Range of Motion AROM - flexion 75% with pain, extension neutral with pain, R LF 25%, L LF 50% PROM - L SKC 60%, R SKC 75%, DKC unable due to increased back pain, lacks hip extension in R hip Strength Hip - R rotators 5/5, L rotators 4+/5 with pain, L hip abduction 3+/5 with pain, R hip abduction 4+/5 Palpation tender to light touch over glut med/iliac crest just lateral to spine/SI joint, R QL tight and tender, L paraspinals tender, L piriformis tender, PSIS very tender to touch Posture significant decrease in lumbar lordosis with flexed trunk very difficult and painful to achieve neutral Assessment Assessment/Impression Pt. is 68 y/o male who presents with chronic LBP and knee pain that was recently increased by a fall onto a hitch landing on his back. He has some moderate swelling in the L L-S region centered around the L PSIS. He has significant degenerative changes that are contributing to his chronically flexed trunk. Further evaluation will be warranted once he is able to move more easily without sharp pain. Treatment will initially be geared towards modalities to decrease pain and swelling, and then progress to therex for strength and ROM. Primary Functional Limitations bending, lifting, climbing into truck and bobcat, walking Plan of Care Rehabilitation Potential Fair Physical Therapy Goals SHORT TERM GOALS: (3 weeks) 1. Pt. able to move his trunk without sharp pain. 2. Pt. able to rotate hip with pain less than 2/10. 3. Able to assess core strength. MANAGER COSTING GOALS: (6 weeks) 1. Pt. to have 5/5 hip strength to assist in climbing in/out of truck/bobcat. 2. Pt. able to walk with back pain less than 4/10. 3. Pt. able to pull weeds and work in shed with back pain less than 4/10. Coordination/Communication With Referral Source Treatment Plan/Direct Interventions Manual Therapy,Neuromuscular Re-ed,Self-Care/Home Management,Therapeutic Exercises Frequency/Duration 2x/week 6 weeks Patient Will Be Discharged From Therapy Completion of LTG(s),Skills Plateau,Independent w/HEP, Independently Progressing Evaluation Billing Untimed Code Treatment Minutes 35 Complexity Moderate Certification Information Initial Certification Date 12/06/23 Ending Certification Date 03/05/24 Provider Signature Required Yes Provider Signature Shows Agreement With POC & Medical Necessity Physician NPI Number Write NPI# Here Physician Comment/Change : Physician Signature & Date Requested Please Sign/Date Here
== END 2024-05-24 23:59 | disposition home or self-care (01) ==
PROVIDERS: PCP Physician Assistant Medical; Visit Provider Physician Assistant Medical
DX: M54.50 Low back pain, unspecified (principal); R53.1 Weakness; Z51.89 Encounter for other specified aftercare
CPT/HCPCS: 97032; 97035; 97110; 97140; 97162

== ENCOUNTER 2024-02-28 14:07 | Outpatient (CLI) | payer MEDICARE, BC, SELFPAY ==
--- OUTSIDE RECORDS SUMMARY | 2024-02-28 14:14 | XMS_ITS | Clinical Summary ---
Author Organization [employer] [facility] Address [place], [place] [address] Care Team Providers Care Laundry Agent Name Role Phone Emely Henson PA-C Primary Care Provider + [phone] Paul Soler MD Unavailable [phone] Allergies Active Allergy Reactions Criticality Noted Date [...] stenosis 04/20/2023 Coronary artery disease invo lving [place] coronary artery of [place] heart without angina pectoris 04/20/2023 Chronic systolic congestive heart failure 2022 Stenosis of cervical spine 03/09/2022 Overview (03/09/2022): surgery 03/04/22 Pulmonary emphysema 09/10/2020 Bicuspid aortic valve 03/24/2020 Obstructive sleep apnea 11/20/2018 Psoriasis 08/11/2015 Type 2 diabetes mellitus wit hout complication, without long-term current use of insulin 11/01/2012 Overview (11/01/2012): Dx 1997 Follow up surgery. left shou lder open revision massive RCR, subscapularis repair 08/25/11. 11/30/2011 left shoulder rotator cuff tear 05/11/2011 left shoulder subscapularis tear 05/11/2011 left shoulder coracoid impingement 05/11/2011 left long head biceps rupture 05/11/2011 Hypomagnesemia 03/09/2011 Liver cyst 05/27/2010 Overview (04/30/2012): Abdominal US 05/27/2010 - Small hypoechoic lesion in the liver measuring 1.2 cm in maximum dimension has not changed significantly from 10/31/2008. Abdominal US 10/2008 - 1 cm liver cyst in R lobe Systolic murmur 02/20/2010 Shortness of breath 02/20/2010 Rotator cuff tear 02/01/2010 Paroxysmal atrial fibrillation 10/23/2008 Overview (12/16/2015): - 10/22/08: new onset, s/p DCCV in [place], Cor angio with mild CAD - CHADS2 [...] atrial fibrillation Arteriosclerotic heart disease (ASHD) 10/23/2008 Overview (10/23/2008): - 10/22/08 Cor angio: mild CAD Essential hypertension 10/22/2008 Overview (10/11/2018): Meds 04/30/2012: losartan, metoprolol Norvasc added 10/11/18 Ingrowing nail 06/24/2008 Regular astigmatism 09/06/2006 Presbyopia 09/06/2006 Hypermetropia 09/06/2006 Obesity, Unspecified 12/04/2001 Overview (04/30/2012): BMI 04/30/2012: >30 IMPOTENCE, ORGANIC ORIGIN 12/04/2001 Dyslipidemia Overview (04/30/2012): Lipids 04/26/2010 - total 118, TG 215, HDL 36, LDL 39 Meds 04/30/2012: atorvastatin Nonrheumatic aortic valve stenosis Overview (04/30/2012): Systolic murmur Echo 07/06/2011 Aortic sclerosis with [...] mellitus type 2, uncomplicated 06/11/2015 03/30/2016 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 04/19/2012 10/15/2013 Overview (04/30/2012): Warfarin - started 10/2008; indicated for a fib CHADS2=2 (DM, HTN); goal INR 2.0- 3.0; Anticoagulation monitoring, INR range 2-3 11/20/2010 03/07/2023 Overview (04/30/2012): Warfarin - started 10/2008; indicated for a fib CHADS2=2 (DM, HTN) Fever 02/20/2010 05/25/2022 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 12/25/2008 11/20/2010 Overview (12/25/2008): INR Goal Range: 2.0 - 3.0 Dyslipidemia 10/22/2008 02/20/2010 Chest pain 10/22/2008 05/25/2022 Sleep apnea syndrome 10/22/2008 019 Overview (04/30/2012): Dx ~1996 On CPAP HYPERTENSION, ESSENTIAL NOS 12/04/2001 02/20/2010 DM, UNCOMPLICATED, TYPE II 05/15/2001 0 10/22/2008 Other psoriasis 05/25/2022 Unspecified sleep apnea 02/10 Type II or unspecified type diabetes mellitus without mention of complication, not stated as uncontrolled 11/01/2012 Overview (04/30/2012): Diagnosed about 1996 Last Hgb A1c - 6.7 on 10/28/2011 Meds 04/30 - metformin, glipizide, pioglitazone, atorvastatin, losartan Encounters Date Type Department Care Team Description 02/28/2024 Refill [facility] [address] [place] [address] Dexter Lofton MD Refill Request (Atorvastatin) 02/19/2024 Telephone [facility] [address] [place] [address] Paul Soler MD Imaging (CT orders ) 02/14/2024 Telephone [facility] [address] [place] [address] Paul Soler MD Referral 12/12/2023 5:56 AM CDT - 12/12/2023 8:45 AM CDT Hospital Encounter [facility] [address] [place] [address] Paul Soler MD Lung mass; Abnormal chest CT Discharge Disposition: Home Self Care 12/12/2023 Telephone [facility] [address] [place] [address] guided biopsy today 12/11/2023 3:25 PM CDT Office Visit [facility] [address] [place] [address] Shar Perez DO Preoperative Exam (12/12/23, lung biopsy, [facility]) 12/11/2023 Travel 12/11/2023 Telephone [facility] [address] [place] [address] Dexter Lofton MD Follow Up (H and P report ) 12/11/2023 Telephone [facility] [address] [place] [address] Sourav Mac MD Error-please disregard (error) 12/11/2023 Refill [facility] [address] [place] [address] Dexter Lofton MD Refill Request (Tamsulosin) 12/11/2023 Telephone [facility] [address] [place] [address] Paul Soler MD Error-please disregard 12/05/2023 Telephone [facility] [address] [place] [address] Paul Soler MD Results (CT scan ) from Last 3 Months Immunizations Name Administration [...] 2 Heart Disease Father d 85 yo [place] aft er hip fracture Arthritis Mother Heart [...] Stone MD Medical Devices Implanted Type Area Enologist Device Identifier Shelf Expiration Date Model / Serial / Lot [id number] e Canclls Crushed 60cc [] Implanted:Qty: 1 on 08/22/2006 at [facility] Explanted:at [facility] (Quantity not on file) Spine Allosource 05/17/2011 [id number] / [id number] / [id number] e Canclls Crushed 30cc [[id number]] Implanted:Qty: 1 on 08/22/2006 at [facility] Explanted:at [facility] (Quantity not on file) Spine Allosource 11/16/2010 [id number]# / [id number] / Vesna Dayanara [id number] - [id number] Implanted:Qty: 6 on 08/22/2006 at [facility] Spine HOWMEDICA [id number] / / Screw Polyaxial 6.5x45mm - [id number] Implanted:Qty: 6 on 08/22/2006 at [facility] Spine [employer]MEDICA [id number] / / Marin Dayanara Rad 70mm 108mm Radius - [id number] Implanted:Qty: 2 on 08/22/2006 at [facility] Spine [employer]MEDICA [id number] / / Wedge Tag Acufex 3.7mm - [id number] Implanted:Qty: 3 on 08/25/2011 at [facility] Left: Shoulder [employer] [id number] / / [id number] Screw Cerv Ant 4x15mm Pymatuning South Translational Va Slf Drill - [id number] Implanted:Qty: 3 on 03/04/2022 by Donald Alba MD at [facility] N/A: Spine Medtronic Spine/Ortho [id number] / / Plate Cerv 1lvl 25mm Pymatuning South Vision Elite Ant - [id number] Implanted:Qty: 1 on 03/04/2022 by Donald Alba MD at [facility] N/A: Spine Medtronic Spine/Ortho [id number] / / [id number] e Matrix 1cc [place] Plus Paste Dbm Implanted:Qty: 1 on 03/04/2022 by Donald Alba MD at [facility] Explanted:at [facility] (Quantity not on file) N/A: Spine Medtronic Spine/Ortho 10/12/2023 [id number] / [id number] / [id number] Spinal Graft Block Robert Implanted:Qty: 1 on 03/04/2022 by Donald Alba MD at [facility] Explanted:at [facility] (Quantity not on file) N/A: Spine Medtronic Spine/Ortho 02/24/2024 [id number] / [id number] / Screw Cerv Ant 4x13mm Pymatuning South Translational Va Slf Drill - [id number] Implanted:Qty: 1 on 03/04/2022 by Donald Alba MD at [facility] N/A: Spine Medtronic Spine/Ortho [id number] / / Tissue Pericardium 0.8x8cm Photofix Bovine - [id number] Implanted:Qty: 1 on 06/29/2023 by Ahmet Levy MD at [facility] Left: Groin Cryolife Inc 02/03/2025 [id number] / / [id number] Description:CryoLife PhotoFi x Decellularized Bovine Pericardium 0.8cm x 8cm; Lot Number [id number]; Reference Number [id number]; Implanted to the left [...] 4:25 PM CDT Preop general physical exam from Last 3 Months Results * CT [...] provider. EXAM: CT CHEST LIMITED WO LOCATION: [facility] MEDICAL IMAGING DATE: 12/12/2023 INDICATION: Lung Mass [...] provider. EXAM: CT CHEST LIMITED WO LOCATION: [facility] MEDICAL IMAGING DATE: 12/12/2023 INDICATION: Lung Mass [...] reevaluated on shortinterval follow-up chest CT. Dr. Plolock was contacted by me on 12/12/2023 4:35 PM CDT and verbalizedunderstanding above findings and decision to defer biopsy. Paul Soler MD CT * (ABNORMAL) GLUCOSE METER (12/12/2023 6:43 AM CDT) GLUCOSE METER 219(H) 65 - 100 mg/dL 12/12/2023 6:44 AM CDT [facility] Blood BLOOD SPECIMEN / Unknown 12/12/2023 6:43 AM CDT 12/12/2023 6:44 AM CDT Paul Soler MD CHEMISTRY [facility] [address] [address] [address] [place] [address] * Platelet Count (12/12/2023 6:10 AM CDT) PLATELET COUNT 339 140 - 440 thou/cu mm 12/12/2023 6:28 AM CDT [facility] MPV 9.2 6.5 - 11.0 fL 12/12/2023 6:28 AM CDT [facility] Blood BLOOD SPECIMEN / Unknown Venipuncture / Unknown 12/12/2023 6:10 AM CDT 12/12/2023 6:14 AM CDT Narrative [facility] - 12/12/2023 6:28 AM CDT If not done within past 14 days. Nurse to release order. If not done within past 14 days. Nurse to release order. José Manuel Chase MD HEMATOLOGY [facility] [address] [place] [address] * (ABNORMAL) Hemoglobin (12/12/2023 6:10 AM CDT) HEMOGLOBIN 11.5(L) 13.5 - 17.5 g/dL 12/12/2023 6:28 AM CDT [facility] MCV 74(L) 80 - 100 fL 12/12/2023 6:28 AM CDT [facility] Blood BLOOD SPECIMEN / Unknown Venipuncture / Unknown 12/12/2023 6:10 AM CDT 12/12/2023 6:14 AM CDT [facility] - 12/12/2023 6:28 AM CDT If not done within past 14 days. Nurse to release order. If not done within past 14 days. Nurse to release order. José Manuel Chase MD HEMATOLOGY [facility] [address]OUT [address] [place] [address] * Protime-INR (12/12/2023 6:10 AM CDT) INR 1.1 <1.3 12/12/2023 6:34 AM CDT [facility] PROTIME 12.3 10.3 - 12.3 sec 12/12/2023 6:34 AM CDT [facility] Blood BLOOD SPECIMEN / Unknown Venipuncture / Unknown 12/12/2023 6:10 AM CDT 12/12/2023 6:14 AM CDT [facility] - 12/12/2023 6:34 AM CDT ?Therapeutic [...] on UFH. José Manuel Chase MD HEMATOLOGY [facility] [address] [address] [address] [place] [address] * POTASSIUM (12/11/2023 4:25 PM CDT) POTASSIUM 4.7 3.5 - 5.1 mmol/L 12/11/2023 5:21 PM CDT [facility] Blood BLOOD SPECIMEN / Unknown Venipuncture / Unknown 12/11/2023 4:25 PM CDT 12/11/2023 4:25 PM CDT Shar Perez DO CHEMISTRY [facility] [address] [place] [address] from Last 3 Months Advance Directives * [...] Status Discussion: Per Existing Order Care Teams Laundry Agent Relationship Specialty Start Date End Date Emely Henson PA-C [address] [place] [address] PCP - General Emergency Medicine 04/20/23 Paul Soler MD [address] [place] [address] Pulmonology Pulmonary Medicine 09/30/22
== END 2024-02-28 14:08 | disposition home or self-care (01) ==
PROVIDERS: PCP Physician Assistant Medical; Visit Provider Physician Assistant Medical
DX: E11.65 Type 2 diabetes mellitus with hyperglycemia (principal); I10 Essential (primary) hypertension; R79.89 Other specified abnormal findings of blood chemistry; E78.2 Mixed hyperlipidemia; D50.9 Iron deficiency anemia, unspecified
CPT/HCPCS: 80053; 80061; 82607; 83540; 83550; 84443

== ENCOUNTER 2024-06-10 09:00 | Outpatient (RCR) | payer MEDICARE, BC, SELFPAY ==
--- NOTE | 2024-03-06 12:24 | PT.OPE ---
PT [facility] Outpatient Eval PT [facility] Outpatient Eval Start: 03/06/24 09:01 Freq: Status: Active Protocol: Document 03/06/24 09:02 LSL (Rec: 03/06/24 10:03 LSL [id number]) E-signed By Angie Peoples PT Physical Therapy Outpatient Evaluation Insurance Information Recert Due Date 06/04/24 Insurance Name Medicare B,Blue Cross/Blue Shield Medical Diagnosis physical deconditioning Treating Diagnosis impaired balance, impaired gait, impaired joint ROM in multiple joints Referring MD Henson Subjective Preferred Name Cecil Subjective Pt. reports in general he is ready to . He is not on his anti-depressants. My counselor said to hold off returning to anti-depressants and Emely said it was up to me , so I am not on them currently. I am trying to get stuff done around my house before winter and I will be walking around and my knee will shift. I can't straighten up and I try and try and that is frustrating. No significant pain. Date of Last Physician Visit 02/28/24 Current Work Status Retired Precautions Treatment Precautions/Contraindications mitral valve replacement with complication at L femoral vein within past year, poorly controlled DM, depression, less recent multi-level lumbar fusion Therapy Limitations/Systems Review Other Medical Problem Objective Range of Motion AROM Knees L 0/23/136 R 0/19/136 Hip L ER 30, IR -13, ext -10, abd 16 R ER 30, IR 0, ext -4, abd 18 Trunk - flexion 75%, extension -22, , LLF 19%, RLF 20% Strength Knee - B quad and HS 5/5 Trunk - upper abdominals 2/5, extension 2/5 more due to limited ROM Hip - R TFL 4/5 with R LBP, abd 4+/5 with pain, R extension 5/5 in available ROM , L TFL 4/5 with thigh pain, abd 3-/5, extension 5/5 in available ROM Balance & Gait GAIT - flexed trunk, arms behind his legs BALANCE - B 5 seconds with significant UE help away from body required Posture Flexed trunk, B genu varus R>L Other/Pertinent Objective clunking in hips during ROM testing Assessment Assessment/Impression Pt. is a 69 y/o male who presents to therapy for reasons he is unsure about. He has multiple joint issues due to OA and needs knee replacements. The instability he experiences in his R knee is contributing to almost falling and while strengthening will help, it will not change this instability. Additionally due to joint sounds and lack of ROM in his hips I suspect those are very arthritic as well. His depression makes him less likely to actively participate in his exercises and when he was on his medication for depression, he was consistently more upbeat while rehabbing for his back injury he sustained after his fall. I additionally tried to explain how not managing his DM also increases inflammation in his body and puts his joints, mental health and cardiovascular system at increased risk and how doing a better job with this could help his entire body perform better, as I have also noticed sarcopenia over the past couple years. Treatment will consist of therex, NM re-ed, gait training. Primary Functional Limitations walking, lifting, carrying, maintaining balance while digging and shoveling Plan of Care Rehabilitation Potential Fair Physical Therapy Goals SHORT TERM GOALS: (4 weeks) 1. Pt. able to balance for 5 seconds on each limb while maintaining a neutral position with UE. 2. Pt. consistently completing HEP. DETENTION GOALS: (8 weeks) 1. Pt. able to ambulate on challenging (uneven) surface without LOB. 2. Pt. to demonstrate balance of 10 seconds per limb while completing task. 3. Pt. to have 5-10 degree improvement in knee extension. Coordination/Communication With Referral Source Treatment Plan/Direct Interventions Neuromuscular Re-ed,Self-Care/ Home Management,Therapeutic Exercises Frequency/Duration 2x/week 6 weeks then 1x/week 4 weeks. Patient Will Be Discharged From Therapy Skills Plateau,Independent w/ HEP,Independently Progressing Evaluation Billing Untimed Code Treatment Minutes 45 Complexity Moderate Certification Information Initial Certification Date 03/06/24 Ending Certification Date 06/04/24 Provider Signature Required Yes Provider Signature Shows Agreement With POC & Medical Necessity Physician NPI Number Write NPI# Here Physician Comment/Change : Physician Signature & Date Requested Please Sign/Date Here
--- NOTE | 2024-06-06 12:48 | PT.OPDN ---
PT [facility] Outpatient Daily Note PT [facility] Outpatient Daily Note Start: 03/06/24 09:01 Freq: Status: Active Protocol: Document 06/06/24 09:03 LSL (Rec: 06/06/24 10:02 LSL [id number]) E-signed By Angie Poeples, PT PT OP Daily Progress Note Visit Information Note Type Daily Note Visit Number 24 Insurance Authorized Visits medicare guidelines Physician Authorized Visits eval & treat Insurance Information Recert Due Date 06/04/24 Insurance Name Medicare B,Blue Cross/Blue Shield Medical Diagnosis physical deconditioning Treating Diagnosis impaired balance, impaired gait, impaired joint ROM in multiple joints Referring MD Henson Subjective Preferred Name Cecil Subjective Pt. reports overall about the same with regard to his knee. My L hip is really bothering me. Pain Comments R knee 12/19 worst L hip 03/21 Date of Last Physician Visit 02/28/24 Precautions Treatment Precautions/Contraindications mitral valve replacement with complication at L femoral vein within past year, poorly controlled DM, depression, less recent multi-level lumbar fusion Weight Bearing Status Full Weight Bearing Home Exercise Home Exercise Comments MEDBRIDGE: [id number] TB lat pull, TB row, counter push up, tandem balance, partial squat with chair touch , bridge, RDL [id number] piriformis stretch, clamshell with band, seated hip IR with band [id number] QS, SLR, bridge, hip abd SLR, prone SLR Objective Patient Instructed in Risks/Benefits Yes Therapeutic Exercise Therapeutic Exercise Minutes (minutes) 55 Therapeutic Exercise: To Restore - NuStep S10 UE/LE S7 10' (3' Functional Status HIIT 10:50) - leg press S9 120# 3x10 - lumbar extension 100# 3x10 - sit to stand 35#, 45# 10x ea - RDL 35# 2x10 - heel raises SL 15# 3x10 ea - tricep chair press 2x10 - hip flexor stretch manually B 1' ea with slight overpressure - bridge x10 5 sec, 2x 30 sec HELD BELOW: - SLR B 2x10 ea - tricep press 17.5# 10x, 22.5 # 10x, 27.5# 10x - lat pull 52.5# 3x10 ea - CC row 27.5# 10x, 37.5# 2x10 - counter push up 3x10 (at treadmill) - hip abd SLR 10x B - prone SLR 2x10 B - manual prone quad stretch 1' ea - prone laying 2' - seated pilates ring squeeze at ankles 2x10 - prone hip IR green loop x10 hold 5 sec - quad UE/LE 3x 5 sec - laws's carry 35# 15' - clamshell green loop 3x10 B - S/L ER 3# 3x10 B - supine 90/90 IR 3#2x10 B - prone hip extension 10x ea with external stabilization Treatment Minutes Timed Code Treatment Minutes 55 Total Treatment Time 55 Billing Units Therapeutic Exercise Units 4 Assessment/Impression Assessment/Impression Pt. appears to be having anxiety related to surgery. He was struggling mentally and physically a bit more today. L hip extension moderately more limited than R. significant spurring/swelling about medial joint line of R knee. More emphasis today on L hip to attempt to manage symptoms better prior to R knee surgery where more of his weight will temporarily be on his L side. Primary Functional Limitations walking, standing, lifting, bending, carrying Plan of Care Physical Therapy Goals SHORT TERM GOALS: (4 weeks) 1. Pt. able to balance for 5 seconds on each limb while maintaining a neutral position with UE. 2. Pt. consistently completing HEP. (MET) SENIOR CARE GOALS: (8 weeks) 1. Pt. able to ambulate on challenging (uneven) surface without LOB. 2. Pt. to demonstrate balance of 10 seconds per limb while completing task. 3. Pt. to have 5-10 degree improvement in knee extension. Daily Plan of Care Continue per POC Daily Plan of Care Comments Ongoing POC to consist of GUILLERMO soto re-ed, gait training Recertification Information Initial Certification Date 02/28/24 Recertification Start Date 06/04/24 Recertification Due Date 06/14/24 Reasons to Continue Skilled Therapy impaired gait, impaired range, weakness, impaired balance, inability to stand up straight Rehabilitation Potential Fair to good Continued Plan of Care and Interventions We will continue to work on strength, range and conditioning through next week prior to his knee surgery, as he has issues in multiple joints to include R ankle, R knee, L hip, lumbar spine, B shoulders and cervical spine. Provider Signature Shows Agreement With POC & Medical Necessity Physician Comment/Change Comment or Changes Physician NPI Number #
== END 2024-06-13 12:42 | disposition home or self-care (01) ==
PROVIDERS: PCP Physician Assistant Medical; Visit Provider Physician Assistant Medical
DX: R53.81 Other malaise (principal); Z96.651 Presence of right artificial knee joint; R26.89 Other abnormalities of gait and mobility; Z74.09 Other reduced mobility; Z51.89 Encounter for other specified aftercare
CPT/HCPCS: 97110; 97140; 97162

== ENCOUNTER 2024-06-18 06:51 | Inpatient (IN) | payer MEDICARE, BC, SELFPAY ==
[2024-06-18] VITALS (23 sets, daily range): BP systolic 93–133; BP diastolic 56–84; PULSE 58–79; RESP 15–18; TEMP 36.1–36.8; O2SAT 92–100; BMI 32.5
[2024-06-18] MEDS: OXYCODONE (CR) 10 MG TAB.ER.12H PO (07:56)
[2024-06-18] MEDS: ACETAMINOPHEN 500 MG TABLET 1000 MG PO ×3 (07:56→21:12)
[2024-06-18] MEDS: SODIUM CHLORIDE 0.9 % (FLUSH) 10 ML SYRINGE IVF (07:56)
[2024-06-18] MEDS: LACTATED RINGERS 1000 ML 1,000 ML 100 ML IV ×2 (07:57→11:44)
--- NOTE | 2024-06-18 07:57 | SUR.PREOP ---
TIME?OUT:?0836 PT/RN/MDA?VERIFICATION?OF?SURGICAL?SITE Right Knee,?PROCEDURE Nerve Block,?AND?CONSENT OBTAINED?PRIOR?TO?INVASIVE?PROCEDURE.
[2024-06-18] MEDS: MIDAZOLAM HCL 1 MG/ML inj IVP (08:39)
[2024-06-18] MEDS: fentaNYL 100 MCG/2 ML inj IVP (08:39)
--- NOTE | 2024-06-18 08:48 | P.NB_ITS ---
Nerve Block Nerve Block Time Seen by Provider: 08:39 Date Seen: 06/18/24 Type of block requested by surgeon for post-operative analgesia: adductor canal Side: right Time out performed: Yes Verification of patient name: Yes Verification of date of : Yes Site marking: site marked Name of person performing procedure: Jesse Continuous monitoring Was continuous monitoring of O2 sat, B/P, senior mobile web developer, recorded every 15 minutes?: Yes Procedure Checklist: sterile prep, needles and gloves Ultrasound guided. Images saved: Yes Medications given in 5ml increments after negative aspiration: Marcaine %: 0.25 mL: 15 Needle gauge: 20 Precedex (mcg): 25 Patient tolerated procedure well: Yes Block Charges Block Charge (with Pro Fee): Femoral Nerve Use of Ultrasound Machine for Block: Yes- US Guidance/pain block
--- NOTE | 2024-06-18 08:48 | W.ANESCHARGE ---
Anesthesia Charges Start Date/Time Anesthesia Start Date: 06/18/24 Anesthesia Start Time: 08:58 Stop Date/Time Anesthesia Stop Date: 06/18/24 Anesthesia Stop Time: 11:19
--- NOTE | 2024-06-18 08:51 | W.PM.NB ---
Nerve Block Nerve Block Time Seen by Provider: 08:39 Date Seen: 06/18/24 Type of block requested by surgeon for post-operative analgesia: geniculars Side: right Time out performed: Yes Verification of patient name: Yes Verification of date of : Yes Site marking: site marked Name of person performing procedure: Jesse Continuous monitoring Was continuous monitoring of O2 sat, B/P, threat monitoring analyst, recorded every 15 minutes?: Yes Procedure Checklist: sterile prep, needles and gloves Ultrasound guided. Images saved: Yes Medications given in 5ml increments after negative aspiration: Marcaine %: 0.25 mL: 9 Needle gauge: 25 Patient tolerated procedure well: Yes Block Charges Block Charge (with Pro Fee): Genicular Nerve Block
[2024-06-18] MEDS: CEFAZOLIN 2 GM INJ IVP (09:05)
[2024-06-18] MEDS: TRANEXAMIC ACID 100 MG/ML INJ 1000 MG IV (09:06)
--- NOTE | 2024-06-18 10:27 | CRLHL7_ITS ---
For Patients: As a result of the Cures Act, medical imaging exams and procedure reports are released immediately into your electronic medical record. You may view this report before your referring provider. If you have questions, please contact your health care provider. Indication: Postop right knee Technique: Two views right knee Findings/Impression: Hardware from a right total knee arthroplasty is in satisfactory position. Bone alignment is normal. No sign of acute fracture. Postop changes are within normal limits. Dictated by Paul Simons MD @ 06/18/2024 12:40:54 PM (Electronically Signed)
--- NOTE | 2024-06-18 10:31 | P.ORPRC_ITS ---
Procedure Note Date of procedure: 06/18/24 Procedure: PREOPERATIVE DIAGNOSIS: Right knee osteoarthritis POSTOPERATIVE DIAGNOSIS: Right knee osteoarthritis NAME OF OPERATION: Right total knee arthroplasty SURGEON: Jeffy Wolf MD STAFF NUC[employer] OFFICER: Jemima Shepard PA-C ANESTHESIA: Spinal ESTIMATED BLOOD LOSS: 0 mL COMPLICATIONS: None SPECIMENS: None DRAINS: None PREOPERATIVE ANTIBIOTICS: Ancef 2 grams IMPLANTS: 1. J&J Attune # 5 posterior stabilized femur 2. # 7 fixed-bearing tibia 3. # 5 posterior stabilized, 10 mm fixed-bearing polyethylene 4. 41 patella INDICATIONS: The patient is a 69-year-old with a longstanding history of severe, unrelenting right knee pain secondary to end-stage (grade IV) right knee osteoarthritis. Despite appropriate nonoperative management, including activity modification, anti-inflammatories, [id number] pain medication, bracing, physical therapy, and injections they continue to have pain and disability. Operative intervention was offered. The risks, benefits and expected outcomes were discussed in detail. These inclu ded but were not limited to: Infection, bleeding, injury to blood vessel or nerve, venous thromboembolism. All questions were answered to their satisfaction. Use of an delinquent tax collection assistant was necessary throughout the case for patient positioning and safety, soft tissue retraction, and closure. PROCEDURE: Spinal anesthesia was administered. The patient was placed supine on the operating table. The delinquent tax collection assistant made sure the patient was positioned appropriately. The lower extremity was prepped and draped in the usual sterile fashion. The limb was exsanguinated with the Orestes bandage. The pneumatic tourniquet was inflated to 300 mmHg. A standard anterior incision was made with the knee in flexion. Subcutaneous dissection was sharply taken through fascial layer #1. Full-thickness medial and lateral flaps were elevated. The delinquent tax collection assistant retracted the soft tissues and protected them throughout the case. A standard subvastus approach was made. The patella was subluxed. The infrapatellar fat pad was debrided. The menisci and cruciate ligaments were sharply d?brided. Marginal osteophytes were d?brided with the rongeur. The drill was used to penetrate the femoral canal. The canal was aspirated and irrigated with pulse lavage. The intramedullary femoral guide was placed for a 5-degree valgus cut, removing 10 mm off the distal femur. The saw was used to make the cut. Whitesides line and the trans epicondylar axis were marked. The femoral sizing guide was pinned onto the distal femur. Three degrees of external rotation nicely parallels the transepicondylar axis. Pins were placed for posterior referencing. The four-in-one cutting guide was pinned onto the distal femur. The anterior, posterior, and chamfer cuts were made. The delinquent tax collection assistant protected the collateral ligaments. The box cutting guide was pinned. The box cuts were made. The boxed trial was placed and was an excellent fit. Drill holes for the lugs were made. Attention was then turned to the proximal tibia. The extramedullary tibial guide was placed for a neutral varus/valgus cut with 5 degrees of posterior slope, removing 2 mm based off the medial tibial surface. The delinquent tax collection assistant protected the collateral ligaments and the neurovascular bundle. The saw was used to make the cut. Trial components were placed. The knee was nicely balanced in both flexion and extension. The trial components were removed. The tray was placed in appropriate rotation, parallel to our tibial cutting pins. It was pinned by the delinquent tax collection assistant and the drill and the punch were used. The tray was removed. The punch was used again. We placed a bone plug in the femoral canal. Attention was then turned to the patella. [place] patellar thickness was 26 mm. The lobster claw resection guide was used with the 9.5 mm gloria. The saw was used to make the cut. Drill holes were made by the delinquent tax collection assistant. The trial was placed and was an excellent fit. Cancellous surfaces were irrigated with pulse lavage and thoroughly dried by the delinquent tax collection assistant. We cemented the tibial component, then the femoral component. We impacted the 10 mm polyethylene onto the tibial tray. The knee was brought into full extension. We then cemented the patellar component. Excessive cement was removed. The cement was allowed to harden. The knee was taken through a range of motion and was found to be nicely balanced in both flexion and extension. The patella tracks centrally. The delinquent tax collection assistant did a three minute dilute Betadine solution soak. The delinquent tax collection assistant irrigated the wound with 3 liters of normal saline via pulse lavage. The delinquent tax collection assistant reapproximated the extensor mechanism with #1 Vicryl in an interrupted [id number] fashion. The delinquent tax collection assistant then ran the extensor mechanism with a #1 PDO Stratafix. The delinquent tax collection assistant closed the subcutaneous tissues with a 3-0 Stratafix and the skin with a running 3-0 Stratafix in a subcuticular fashion. Glue was used to seal the skin. The delinquent tax collection assistant placed a dry dressing. Sponge and needle counts were correct x2. The patient tolerated the procedure well. There were no apparent complications. They were carefully transferred to the hospital bed and taken to the postanesthesia care unit in satisfactory condition. PLAN: The patient will be mobilized with physical therapy. Aspirin will be used for DVT prophylaxis. They will be discharged to home once medically appropriate.
--- NOTE | 2024-06-18 11:21 | W.ANESCHARGE ---
Anesthesia Charges Start Date/Time Anesthesia Start Date: 06/18/24 Anesthesia Start Time: 08:58 Stop Date/Time Anesthesia Stop Date: 06/18/24 Anesthesia Stop Time: 11:19
[2024-06-18] MEDS: HYDROmorphone 0.5 mg/0.5 ml inj IVP (13:24)
[2024-06-18] MEDS: CEFAZOLIN 1 GM in 0.9 % SODIUM CHLORIDE Mini-bag 100 ML IVPB ×2 (14:58→22:48)
[2024-06-18] MEDS: OXYCODONE 5 MG TABLET PO ×4 (14:59→22:53)
--- NOTE | 2024-06-18 19:28 | P.IMCN_ITS ---
Date of Consult Patient: [facility] Patient Consult date: 06/18/24 Requesting Physician: Orthopedics Primary Care Provider: Emely Henson PA-C Consult Narrative Reason for consult: afib, TAVR, COPD, CHF, HTN Narrative: Tobi Ugarte is a 69 year old male with a complicated past medical history which includes chronic anticoagulation for atrial fibrillation, ascending aortic aneurysm, pancreatic lesion, peripheral arterial disease, obstructive sleep apnea, congestive heart failure, COPD, severe aortic stenosis for which he is status post a TAVR 1 year ago, left bundle-branch block, and diabetes mellitus who underwent elective right total knee arthroplasty today by Dr. Wolf. He is feeling well, sitting in the bed side chair eating dinner. He has no compla ints. Denies chest pain or shortness of breath. Pain is well controlled. Review of Systems Status of ROS: Reports: 6 or more systems reviewed and unremarkable except as noted in History and below [facility] Medical History (Updated 06/18/24 @ 20:31 by Jocelin Finley MD) Chronic anticoagulation ?Z79.01 - intermediate (current) use of anticoagulants (ICD-10) Ascending aortic aneurysm (~09/2023) ?I71.21 - Aneurysm of the ascending aorta, without rupture (ICD-10) Vertigo ?R42 - Dizziness and giddiness (ICD-10) Psoriasis (~08/11/15) ?L40.9 - Psoriasis, unspecified (ICD-10) Pancreatic lesion (~05/23/23) ?K86.9 - Disease of pancreas, unspecified (ICD-10) Depression ?F32.A - Depression, unspecified (ICD-10) PAD (peripheral artery disease) ?I73.9 - Peripheral vascular disease, unspecified (ICD-10) Hyperlipidemia ?E78.5 - Hyperlipidemia, unspecified (ICD-10) COPD (chronic obstructive pulmonary disease) ?J44.9 - Chronic obstructive pulmonary disease, unspecified (ICD-10) Chronic systolic (congestive) heart failure (~04/20/23) ?I50.22 - Chronic systolic (congestive) heart failure (ICD-10) PAOLO on CPAP ?G47.33 - Obstructive sleep apnea (adult) (pediatric) (ICD-10) Paroxysmal atrial fibrillation ?I48.0 - Paroxysmal atrial fibrillation (ICD-10) SVT (supraventricular tachycardia) ?I47.10 - Supraventricular tachycardia, unspecified (ICD-10) Severe aortic stenosis (04/20/23) ?I35.0 - Nonrheumatic aortic (valve) stenosis (ICD-10) Left bundle branch block (~06/2023) ?I44.7 - Left bundle-branch block, unspecified (ICD-10) Diabetes mellitus ?E11.9 - Type 2 diabetes mellitus without complications (ICD-10) Weight loss ?R63.4 - Abnormal weight loss (ICD-10) Microcytic anemia ?D50.9 - Iron deficiency anemia, unspecified (ICD-10) Low TSH level ?R79.89 - Other specified abnormal findings of blood chemistry (ICD-10) Pulmonary nodule ?R91.1 - Solitary pulmonary nodule (ICD-10) Osteoarthritis of left hip ?M16.12 - Unilateral primary osteoarthritis, left hip (ICD-10) Former smoker ?Z87.891 - Personal history of nicotine dependence (ICD-10) Renal lesion (~08/2023) ?N28.9 - Disorder of kidney and ureter, unspecified (ICD-10) Pulmonary lesion ?J98.4 - Other disorders of lung (ICD-10) ?Z63.4 - Disappearance and of family member (ICD-10) Bicuspid aortic valve (~03/24/20) ?Q23.1 - Congenital insufficiency of aortic valve (ICD-10) Atherosclerotic heart disease of [place] coronary artery without angina pectoris (~04/20/23) ?I25.10 - Atherosclerotic heart disease of [place] coronary artery without angina pectoris (ICD-10) Normal coronary angiogram Impotence, organic ?N52.9 - Male erectile dysfunction, unspecified (ICD-10) Rotator cuff tear ?M75.100 - Unspecified rotator cuff tear or rupture of unspecified shoulder, not specified as traumatic (ICD-10) Liver cyst ?K76.89 - Other specified diseases of liver (ICD-10) Rupture of left long head biceps tendon ?S46.112A - Strain of muscle, fascia and tendon of long head of biceps, left arm, initial encounter (ICD-10) Partial tear of subscapularis tendon ?S46.819A - Strain of other muscles, fascia and tendons at shoulder and upper arm level, unspecified arm, initial encounter (ICD-10) Unspecified rotator cuff tear or rupture of left shoulder, not specified as traumatic ?M75.102 - Unspecified rotator cuff tear or rupture of left shoulder, not specified as traumatic (ICD-10) Stenosis of cervical spine ?M48.02 - Spinal stenosis, cervical region (ICD-10) Surgical History Status post total right knee replacement ?Z96.651 - Presence of right artificial knee joint (ICD-10) History of ankle surgery (~06/2022) ?Z98.890 - Other specified postprocedural states (ICD-10) Status post transcatheter aortic valve replacement (~06/29/23) ?Z95.2 - Presence of prosthetic heart valve (ICD-10) History of surgery on right wrist (12/08/18) ?Z98.890 - Other specified postprocedural states (ICD-10) S/P hardware removal (10/20/22) ?Z98.890 - Other specified postprocedural states (ICD-10) Hx of nasal septoplasty (04/23/09) ?Z98.890 - Other specified postprocedural states (ICD-10) S/P lumbar fusion ?Z98.1 - Arthrodesis status (ICD-10) History of cardiac radiofrequency ablation ?Z98.890 - Other specified postprocedural states (ICD-10) History of cervical discectomy ?Z98.890 - Other specified postprocedural states (ICD-10) Status post arthroscopy of right shoulder (04/22/08) ?Z98.890 - Other specified postprocedural states (ICD-10) Status post arthroscopy of left shoulder (02/19/10) ?Z98.890 - Other specified postprocedural states (ICD-10) S/P trigger finger release (11/29/18) ?Z98.890 - Other specified postprocedural states (ICD-10) History of carpal tunnel surgery of right wrist (11/29/18) ?Z98.890 - Other specified postprocedural states (ICD-10) Family History Brother Diabetes Social History (Updated 06/18/24 @ 18:00 by Jocelin Finley MD) Narrative: . from glioblastoma. Youngest son lives with him and oldest son lives just down the street. Daughter is one of our charge nurses. 3 adult kids. 2 grandkids. 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 One of his adult sons lives with him. Former smoker- Quit 35 years ago. Denies recreational drugs Alcohol -rare use (less than one drink per week) What is your current living situation?: I presently have a place to live Problems where you live: declined to answer Problems where you live details: NA In the past 12 months, utilities in danger of being shut off: no In past 12 months, lack of transportation kept you from medical appts, meetings, work, or getting things needed for daily living: no In the past 12 mos, have been you worried that your food would run out before you had money to buy more?: never true In the past 12 mos, the food you bought just didn't last and you didn't have money to buy more?: never true Smoking Status: Former smoker Second hand tobacco smoke exposure: No How often do you have a drink containing alcohol: never How often do you have six or more drinks on one occasion: Never AUDIT-C Alcohol total score: 0 Non-prescribed substance use: denies use Caffeine: Yes How often does anyone, including family, friends and others, physically hurt you : never How often does anyone, including family, friends and others, insult or talk down to you: never How often does anyone, including family, friends and others, threaten you with harm: never How often does anyone, including family, friends and others, scream or curse at you: never Meds Home Medications and Allergies Home Medications ?Medication ?Instructions ?Recorded ?Confirmed ?Type albuterol sulfate 90 mcg/actuation 1 - 2 inh inhalation Q6H PRN 06/27/22 0 06/18/24 History aerosol inhaler ipratropium 0.5 mg-albuterol 3 mg 3 ml inhalation Q6H PRN 06/27/22 05/23/24 History (2.5 mg base)/3 mL nebulization soln acetaminophen 500 mg tablet 500 mg PO Q4H PRN 01/11/23 06/18/24 History nitroglycerin 0.4 mg sublingual 0.4 mg sublingual Q5M PRN 01/11/23 05/23/24 History tablet betamethasone dipropionate 0.05 % 1 applic topical BID 07/20/23 05/23/24 History topical cream Allergies Allergy/AdvReac Type Severity Reaction Status Date / Time No Known Drug Allergies Allergy Verified 06/18/24 07:19 Exam Narrative: Exam Narrative: General: No acute distress. Awake alert oriented x3. HEENT: Normocephalic atraumatic, pupils equally round and reactive to light and accommodation. Oropharynx clear. Mucous membranes are moist. No cervical lymphadenopathy, thyromegaly or carotid bruits. No JVD. Cardiovascular: Regular rate and rhythm. No murmurs, gallops, or rubs. Chest: No increased work of breathing. Clear to auscultation bilaterally. No crackles or wheezes. Abdomen: Bowel sounds present. Soft, nondistended, nontender. No hepatosplenomegaly or masses. Extremities: Right knee bandage is clean, dry, and intact. No edema, no cyanosis or clubbing. Skin: No jaundice, no pallor, no rashes on visible skin. Const: Vital Signs, click to edit/add: Vital Signs - 24 hr 06/18/24 07:28 06/18/24 08:36 06/18/24 08:40 Temperature 98.2 F Pulse Rate 67 67 61 Respiratory Rate 16 16 16 Blood Pressure 127/74 121/84 113/63 Pulse Oximetry 97 100 98 Oxygen Delivery Me thod Room Air Nasal Cannula Nasal Cannula Oxygen Flow Rate 2 2 06/18/24 08:45 06/18/24 10:21 06/18/24 11:14 Temperature 97.3 F L 97 F L Pulse Rate 58 L 60 63 Respiratory Rate 16 16 16 Blood Pressure 108/59 L 111/71 101/56 L Pulse Oximetry 98 98 98 Oxygen Delivery Me thod Nasal Cannula Room Air Room Air Oxygen Flow Rate 2 0 06/18/24 11:20 06/18/24 11:25 06/18/24 11:30 Temperature Pulse Rate 65 63 60 Respiratory Rate 16 16 16 Blood Pressure 97/66 94/64 93/61 Pulse Oximetry 98 92 93 Oxygen Delivery Me thod Room Air Room Air Room Air Oxygen Flow Rate 0 0 0 06/18/24 11:35 06/18/24 11:40 06/18/24 12:00 Temperature 97.3 F L Pulse Rate 64 61 65 Respiratory Rate 16 16 16 Blood Pressure 104/67 108/67 115/68 Pulse Oximetry 94 94 97 Oxygen Delivery Me thod Room Air Room Air Room Air Oxygen Flow Rate 0 0 06/18/24 12:15 06/18/24 12:30 06/18/24 13:00 Temperature 97.3 F L 97.3 F L Pulse Rate 60 60 63 Respiratory Rate 16 16 16 Blood Pressure 122/74 122/74 122/78 Pulse Oximetry 95 94 94 Oxygen Delivery Me thod Room Air Room Air Room Air Oxygen Flow Rate 06/18/24 13:30 06/18/24 14:34 06/18/24 15:00 Temperature Pulse Rate 60 74 Respiratory Rate 18 Blood Pressure 112/67 Pulse Oximetry 92 98 Oxygen Delivery Me thod Room Air Room Air Oxygen Flow Rate 06/18/24 15:00 06/18/24 15:03 06/18/24 16:40 Temperature 97.6 F 97.5 F L 97.6 F Pulse Rate 73 69 71 Respiratory Rate 18 18 18 Blood Pressure 105/71 105/71 131/66 Pulse Oximetry 95 98 99 Oxygen Delivery Me thod Room Air Room Air Room Air Oxygen Flow Rate 06/18/24 17:18 Temperature 97.6 F Pulse Rate 74 Respiratory Rate 18 Blood Pressure 133/65 Pulse Oximetry 96 Oxygen Delivery Me thod Room Air Oxygen Flow Rate Assessment and Plan Assessment and plan (1) Status post total right knee replacement: Problem comment: - 06/18/24 Dr. Wolf - routine post op cares - VTE prophylaxis: restart warfarin tonight, I contacted Minnie Greene about this who was okay with it. Status: Acute (2) Diabetes mellitus: Problem comment: Diagnosed 1996- stopped glipizide. Started Jardiance 10 mg; continue with metformin. Dr. Ndiaye restarted glipizide ER 01/12/2024, stopped jardiance due to high blood sugar. 05/23/2024- met heidy JEFFERSONCC; temporary CGM - 06/18/24 continue home meds: metfomin, jardiance Status: Chronic (3) HTN (hypertension): Problem comment: - hold amlodipine and losartan tomorrow morning. Restart if BP is high or upon discharge. Status: Chronic (4) Hyperlipidemia: Problem comment: Continue Atorvastatin. Status: Chronic (5) COPD (chronic obstructive pulmonary disease): Problem comment: Quit smoking at age 32 - Stable Status: Chronic (6) Chronic systolic (congestive) heart failure: Problem comment: Improved, EF 65% on echo 09/2023 - stable, chronic, monitor for symptoms Status: Chronic (7) PAOLO on CPAP: Problem comment: - use CPAP while sleeping Status: Chronic (8) Paroxysmal atrial fibrillation: Problem comment: s/p ablation x2 - monitor on tele Status: Chronic (9) Chronic anticoagulation: Problem comment: - restart warfarin tonight. Daily INRs Status: Chronic (10) SVT (supraventricular tachycardia): Problem comment: [id number] Lopressor 12.5 mg BID given frequent SVT episodes by cardiology; follow-up 1 year with TTE - monitor on tele Status: Acute (11) Severe aortic stenosis: Problem comment: s/p TVAR 06/29/2023 Status: Chronic (12) PAD (peripheral artery disease): Problem comment: Abnormal arterial US, w/ ARTEM - 08/16/2023- at [facility] Status: Chronic
[2024-06-18] MEDS: SENNOSIDES 1 TAB TABLET 2 TAB PO (21:12)
[2024-06-18] MEDS: METFORMIN 1,000 MG TABLET 1000 MG PO (21:12)
[2024-06-18] MEDS: ATORVASTATIN CALCIUM 40 MG TABLET PO (21:13)
[2024-06-18] MEDS: ASPIRIN 81 MG TABLET EC PO (21:13)
[2024-06-18] MEDS: METOPROLOL TARTRATE 25 MG TABLET 12.5 MG PO (21:13)
[2024-06-18] MEDS: WARFARIN 2.5 MG TABLET 7.5 MG PO (21:17)
[2024-06-18] MEDS: OMEPRAZOLE 20 MG CAPSULE DR PO (21:17)
[2024-06-18] MEDS: FERROUS SULFATE 325 MG TABLET PO (21:17)
[2024-06-19 01:54] VITALS: BP 124/74; PULSE 91; RESP 18; TEMP 36.4; O2SAT 96
[2024-06-19] MEDS: ACETAMINOPHEN 500 MG TABLET 1000 MG PO ×2 (02:01→08:17)
[2024-06-19] MEDS: OXYCODONE 5 MG TABLET PO ×3 (02:03→11:08)
[2024-06-19] MEDS: HYDROmorphone 0.5 mg/0.5 ml inj IVP (06:29)
--- NOTE | 2024-06-19 06:47 | PC.NURSE ---
End of shift report [id number]: Pleasant and cooperative with cares. Pain to right knee reported at 4-5/10, managed with current regimen. Patient requiring PRN pain medication q2-3 hours, at 0620 patient reporting pain had a sudden spike and rating 9.5/10, IV dilaudid 0.2mg administered and followed up with PRN oxycodone. Ice pack to right knee throughout the night. CMS intact, cap refill <3 seconds, non pitting edema to knee, dressing clean dry and intact. Transfer with assist x1-2 with gait belt and walker, patient wanted to walk and transfer with PT and requested to stay in bed through the night. Patient was agreeable to getting up to recliner at 0200 and assisted back to bed at 0630 with heavy assist x 2. Utilizing urinal at bedside. Denies any nausea or vomiting, diet advanced to regular.
[2024-06-19 06:49] LABS: Basophils Absolute Auto 0.02 K/uL (0.00-0.30); Basophils Percent Auto 0.3 % (0.0-3.0); Eosinophils Percent Auto 10.9 % (0.0-7.0); Hematocrit 28.2 % (37.0-53.0); Hemoglobin* 9.1 gm/dL (13.5-17.5); Lymphocytes Percent Auto 8.5 % (20-44); Mean Corpuscular HGB Conc 32 gm/dL (32-36); Mean Corpuscular Hemoglobin 25 pg (26-34); Mean Corpuscular Volume 77 fL (80-100); Monocytes Percent Auto 11.3 % (0.0-11.0); Neutrophils Absolute Auto 4.62 K/uL (1.7-7.0); Platelet Count* 264 K/uL (140-440); RDW Coefficient of Variation % 14.8 % (11.5-15.5); Red Blood Count 3.65 m/uL (4.30-5.90)
[2024-06-19 06:56] LABS: Slide Review Reflex No
[2024-06-19 07:11] LABS: INR 1.21 (0.91-1.10); Prothrombin Time 16.1 Seconds
[2024-06-19 07:12] LABS: Sodium* 132 mmol/L (135-149)
[2024-06-19 07:13] LABS: Potassium* 4.6 mmol/L (3.6-5.1)
[2024-06-19 07:15] LABS: Creatinine* 0.8 mg/dL (0.5-1.5); Est. Creatinine Clearance* 51.57; Estimated Glomerular Filt Rate 96 ml/min
[2024-06-19 07:16] LABS: Blood Urea Nitrogen* 18 mg/dL (7-30)
[2024-06-19 08:15] VITALS: BP 139/67; PULSE 91; RESP 18; TEMP 37.4; O2SAT 96
[2024-06-19 09:01] VITALS: BP 190/67; PULSE 109; RESP 24; O2SAT 96
[2024-06-19 09:03] VITALS: BP 137/80; PULSE 89; RESP 20; O2SAT 96
[2024-06-19] MEDS: METOPROLOL TARTRATE 25 MG TABLET 12.5 MG PO (09:18)
[2024-06-19] MEDS: OMEPRAZOLE 20 MG CAPSULE DR PO (09:18)
[2024-06-19] MEDS: TAMSULOSIN HCL 0.4 MG CAPSULE PO (09:18)
[2024-06-19] MEDS: FERROUS SULFATE 325 MG TABLET PO (09:18)
[2024-06-19] MEDS: METFORMIN 1,000 MG TABLET 1000 MG PO (09:18)
[2024-06-19] MEDS: SENNOSIDES 1 TAB TABLET 2 TAB PO (09:18)
[2024-06-19] MEDS: ASPIRIN 81 MG TABLET EC PO (09:18)
[2024-06-19] MEDS: EMPAGLIFLOZIN 10 MG TABLET PO (09:18)
[2024-06-19 09:40] VITALS: RESP 18; O2SAT 96
[2024-06-19 10:10] VITALS: PULSE 92
--- NOTE | 2024-06-19 10:36 | PM.ORPN ---
Subjective Subjective Time Seen by Provider: 07:45 Date Seen: 06/19/24 Principal diagnosis: Status post right total knee arthroplasty Interval history: Cecil is having discomfort. He has not ambulated much since his surgery yesterday he states. Ortho Exam Narrative Exam Narrative: Alert and oriented x3. Patient is in no acute distress. Converses without labored breathing. Hearing is grossly intact. Ambulates with a walker. Examination of the right knee shows the dressing is in place. Minimal edema. He is able to slightly straight leg raise. CMS intact right lower extremity. Calves are soft and nontender. Const Vital Signs, click to edit/add: Vital Signs - 24 hr 06/18/24 11:14 06/18/24 11:20 06/18/24 11:25 Temperature 97 F L Pulse Rate 63 65 63 Pulse Rate [Pulse Oximeter] Respiratory Rate 16 16 16 Blood Pressure 101/56 L 97/66 94/64 Blood Pressure [Left Arm] Pulse Oximetry 98 98 92 Oxygen Delivery Method Room Air Room Air Room Air Oxygen Flow Rate 0 0 0 06/18/24 11:30 06/18/24 11:35 06/18/24 11:40 Temperature Pulse Rate 60 64 61 Pulse Rate [Pulse Oximeter] Respiratory Rate 16 16 16 Blood Pressure 93/61 104/67 108/67 Blood Pressure [Left Arm] Pulse Oximetry 93 94 94 Oxygen Delivery Method Room Air Room Air Room Air Oxygen Flow Rate 0 0 0 06/18/24 12:00 06/18/24 12:15 06/18/24 12:30 Temperature 97.3 F L 97.3 F L 97.3 F L Pulse Rate 65 60 60 Pulse Rate [Pulse Oximeter] Respiratory Rate 16 16 16 Blood Pressure 115/68 122/74 122/74 Blood Pressure [Left Arm] Pulse Oximetry 97 95 94 Oxygen Delivery Method Room Air Room Air Room Air Oxygen Flow Rate 06/18/24 13:00 06/18/24 13:30 06/18/24 14:34 Temperature Pulse Rate 63 60 74 Pulse Rate [Pulse Oximeter] Respiratory Rate 16 18 Blood Pressure 122/78 112/67 Blood Pressure [Left Arm] Pulse Oximetry 94 92 Oxygen Delivery Method Room Air Room Air Oxygen Flow Rate 06/18/24 15:00 06/18/24 15:00 06/18/24 15:03 Temperature 97.6 F 97.5 F L Pulse Rate 73 69 Pulse Rate [Pulse Oximeter] Respiratory Rate 18 18 Blood Pressure 105/71 105/71 Blood Pressure [Left Arm] Pulse Oximetry 98 95 98 Oxygen Delivery Method Room Air Room Air Room Air Oxygen Flow Rate 06/18/24 16:40 06/18/24 17:18 06/18/24 20:00 Temperature 97.6 F 97.6 F 97.9 F Pulse Rate 71 74 Pulse Rate [Pulse Oximeter] 79 Respiratory Rate 18 18 18 Blood Pressure 131/66 133/65 Blood Pressure [Left Arm] 113/59 L Pulse Oximetry 99 96 94 Oxygen Delivery Method Room Air Room Air Room Air Oxygen Flow Rate 06/18/24 23:00 06/18/24 23:00 06/19/24 01:54 Temperature 97.6 F Pulse Rate 70 Pulse Rate [Pulse Oximeter] 91 Respiratory Rate 15 18 Blood Pressure Blood Pressure [Left Arm] 124/74 Pulse Oximetry 97 96 Oxygen Delivery Method Room Air Room Air Oxygen Flow Rate 0 06/19/24 08:15 06/19/24 09:01 06/19/24 09:03 Temperature 99.3 F Pulse Rate Pulse Rate [Pulse Oximeter] 91 109 H 89 Respiratory Rate 18 24 20 Blood Pressure Blood Pressure [Left Arm] 139/67 190/67 H 137/80 Pulse Oximetry 96 96 96 Oxygen Delivery Method Room Air Room Air Oxygen Flow Rate 06/19/24 09:40 06/19/24 10:10 Temperature Pulse Rate 92 Pulse Rate [Pulse Oximeter] Respiratory Rate 18 Blood Pressure Blood Pressure [Left Arm] Pulse Oximetry 96 Oxygen Delivery Method Room Air Oxygen Flow Rate Assessment and Plan Assessment and plan (1) Status post total right knee replacement: Problem details: - 06/18/24 Dr. Wolf - routine post op cares - VTE prophylaxis: restart warfarin tonight, I contacted Minnie Greene about this who was okay with it. Status: Acute Assessment and Plan: Cecil will recheck his INR on Monday. He states he makes his appointments for this. He has Tylenol at home. Plan for discharge is today, and when they meets discharge criteria. DVT prophylaxis upon discharge is to continue his usual dosing of warfarin. Remove dressing 1 week. Observe wound and phone Orthopedics with any questions or concerns Use Ice on operative hip unrestricted. Return to clinic in 1 week with PA for a wound check Return to clinic in 6 weeks with surgeon Minimize narcotic use. Wean off and discontinue soon as possible. Activities as tolerated. No strenuous activity. Attend outpt PT I filled out a handicap parking permit and left it on his chart for him for discharge.
[2024-06-19] MEDS: ONDANSETRON 2 MG/ML inj 4 MG IVP (11:43)
--- NOTE | 2024-06-19 12:44 | PC.NURSE ---
End of Shift: Patient pleasant and cooperative, A&O. VSS, afebrile. Patient reports nausea x2 this shift. Declined PRN medication for nausea this morning, but did accept PRN medication for nausea later in the morning. Patient reported pain on his right knee this shift, managed with PRN medication, see MAR. Tolerating regular diet. 1A with walker and gait belt. IV removed with tip intact. Discharge instructions provided, all questions answered.
== END 2024-06-19 12:28 | disposition home or self-care (01) | DRG 470 ==
PROVIDERS: Admitting Provider Orthopaedic Surgery; PCP Physician Assistant Medical; Visit Provider Orthopaedic Surgery
PROC: 0SRC0J9 Replacement of Right Knee Joint with Synthetic Substitute, Cemented, Open Approach (ICD-10-PCS; CPT 27447; principal; 2024-06-18 08:45)
DX: M17.11 Unilateral primary osteoarthritis, right knee (principal); I50.22 Chronic systolic (congestive) heart failure; I47.10 Supraventricular tachycardia, unspecified; G89.18 Other acute postprocedural pain; Z95.2 Presence of prosthetic heart valve; E11.9 Type 2 diabetes mellitus without complications; Z79.84 Long term (current) use of oral hypoglycemic drugs; E78.5 Hyperlipidemia, unspecified; J44.9 Chronic obstructive pulmonary disease, unspecified; I11.0 Hypertensive heart disease with heart failure; Z87.891 Personal history of nicotine dependence; G47.33 Obstructive sleep apnea (adult) (pediatric); Z99.89 Dependence on other enabling machines and devices; I48.0 Paroxysmal atrial fibrillation; Z79.01 Long term (current) use of anticoagulants; I35.0 Nonrheumatic aortic (valve) stenosis; I71.21 Aneurysm of the ascending aorta, without rupture; I73.9 Peripheral vascular disease, unspecified
CPT/HCPCS: 01402; 36415; 64447; 64454; 73560; 76942; 82565; 82962; 84132; 84295; 84520; 85025; 85610; 97016; 97110; 97112; 97116; 97140; 97161; 97162; 97164; 97165; 97530; 97535; A9270; C1776; J0665; J0690; J1100; J1171; J2250; J2371; J2405; J2704; J3010; J7120

== ENCOUNTER 2024-07-15 12:25 | Outpatient (CLI) | payer MEDICARE, BC, SELFPAY | END 2024-07-15 12:26 | disposition home or self-care (01) | LOC: RAD 12:27 | PROVIDERS: PCP Physician Assistant Medical; Visit Provider Internal Medicine Cardiovascular Disease | DX: Z95.3 Presence of xenogenic heart valve (principal); I51.7 Cardiomegaly; I35.1 Nonrheumatic aortic (valve) insufficiency; I34.0 Nonrheumatic mitral (valve) insufficiency; I05.0 Rheumatic mitral stenosis | CPT/HCPCS: 71260; 93306; Q9967 ==

== ENCOUNTER 2024-07-15 12:32 | Outpatient (CLI) | payer MEDICARE, BC, SELFPAY ==
--- NOTE | 2024-07-15 14:00 | CRLHL7_ITS ---
For Patients: As a result of the Century Cures Act, medical imaging exams and procedure reports are released immediately into your electronic medical record. You may view this report before your referring provider. If you have questions, please contact your health care provider. Indication: MASSLIKE AREA OF CONSOLIDATION W/ IN BOTH UPPER LOBES - FOLLOW UP Technique: CT Chest W/ 75CC ISOVUE 370 Please note that all CT scans at this facility use dose modulation, iterative reconstruction, and/or weight-based dosing when appropriate to reduce radiation dose to as low as reasonably achievable. Comparison: 10/31/2023 Findings: Postop changes right shoulder and lower cervical spine. Also postop changes of aortic valve repair. No hiatal hernia. No adrenal nodule. No adenopathy. Visualized thyroid unremarkable with stable incidental calcification on the right. Multilevel bridging osteophyte formation. Discogenic sclerosis lower thoracic spine at the thoracolumbar junction. Mild residual reticular densities in the posterior segment of the left upper lobe. Mild residual linear density is also present within the periphery of the right upper lobe near the fissure. No suspicious pulmonary nodule. No pleural effusion or pulmonary edema. Impression: Resolution of the previously noted airspace densities in both upper lobes with mild residual reticular scarring. Please note that all CT scans at this facility use dose modulation, iterative reconstruction, and/or weight-based dosing when appropriate to reduce radiation dose to as low as reasonably achievable. Dictated by Paul Simons MD @ 07/15/2024 2:54:43 PM (Electronically Signed)
== END 2024-07-15 12:33 | disposition home or self-care (01) ==
LOC: CT 12:33
PROVIDERS: PCP Physician Assistant Medical; Visit Provider Internal Medicine
DX: R91.8 Other nonspecific abnormal finding of lung field (principal); Z95.3 Presence of xenogenic heart valve; I51.7 Cardiomegaly; I35.0 Nonrheumatic aortic (valve) stenosis; I34.0 Nonrheumatic mitral (valve) insufficiency
CPT/HCPCS: 71260; Q9967

== ENCOUNTER 2024-07-22 09:18 | Outpatient (CLI) | payer MEDICARE, BC, SELFPAY | END 2024-07-22 09:19 | disposition home or self-care (01) | PROVIDERS: PCP Physician Assistant Medical; Visit Provider Physician Assistant Medical | DX: D50.9 Iron deficiency anemia, unspecified (principal); Z13.21 Encounter for screening for nutritional disorder | CPT/HCPCS: 82607; 83540; 83550 ==

== ENCOUNTER 2024-08-13 08:45 | Outpatient (RCR) | payer MEDICARE, BC, SELFPAY ==
--- NOTE | 2024-06-13 12:39 | PT.OPE ---
PT [facility] Outpatient Eval PT [facility] Outpatient Eval Start: 06/13/24 09:08 Freq: Status: Active Protocol: Document 06/13/24 09:30 LSL (Rec: 06/13/24 10:03 LSL [id number]) E-signed By Angie Peoples PT Physical Therapy Outpatient Evaluation Insurance Information Recert Due Date 09/11/24 Insurance Name Medicare B Medical Diagnosis s/p R TKA Treating Diagnosis pain, weakness, decreased ROM, impaired gait, impaired balance Referring MD Wolf Subjective Preferred Name Cecil Subjective Pt. reports he is anxious about his upcoming surgery, both whether he will make it through the procedure and if it will make a difference. Also concerned because his left hip has been incredibly painful lately. Date of Next Physician Visit 06/18/24 Date of Surgery (If applicable) 06/18/24 Current Work Status Retired Precautions Weight Bearing Status Weight Bear as Tolerated Therapy Limitations/Systems Review Other Medical Problem Objective Range of Motion AROM R 0/13/123 L 0/10/139 PROM R 0//126 Strength R quads and hamstrings 5/5 Swelling MEASUREMENTS R knee joint line 34 cm suprapatellar 36.75 cm Balance & Gait GAIT -impaired due to L hip pain, R knee instability, and chronic trunk flexion after lumbar fusion BALANCE - SLB B impaired to less than a couple seconds Assessment Assessment/Impression Pt. is a 69 y/o male who presents for his pre-op TKA appointment with impaired ROM, gait and balance. He has been strengthening consistently for the past couple months and while doing well it has not changed his gait which is influenced not just by his knee instability but his lumbar and left hip orthopedic issues and right calf weakness after fracture last year. Additionally he has B shoulder weakness that is contributed to by both cervical and shoulder issues. At baseline he is struggling with his mental health and this may impact his recovery. At baseline he lacks a fair amount of extension in both knees, but some of this is compensation from his flexed trunk due to his back. Treatment will consist of therex, NM re-ed, manual therapy and modalities prn and recovery is predicted to take a bit longer than usual given all his other orthopedic issues. Primary Functional Limitations walking, stairs, walking on unlevel ground, squatting, lifting Plan of Care Rehabilitation Potential Good Physical Therapy Goals SHORT TERM GOALS: (3 weeks) 1. Pt. able to walk with normal (for him) gait pattern with AD. 2. Pt. able to complete a SLR. 3. Pt. to demonstrate 100+ degrees knee flexion to assist in getting out of a chair. SENIOR CARE GOALS: (6 weeks) 1. Pt. able to don/doff own socks and pants. 2. Pt. able to resume driving. 3. Pt. to have 120 degrees knee flexion. 4. Pt. to have knee extension less than 5 degrees. 5. Pt. able to ambulate independently for 200 feet for community ambulation. Coordination/Communication With Referral Source Treatment Plan/Direct Interventions Gait Training,Joint Mobilization,Manual Therapy, Neuromuscular Re-ed, Therapeutic Exercises Frequency/Duration 2x/week 8 weeks Patient Will Be Discharged From Therapy Completion of LTG(s),Skills Plateau,Independent w/HEP, Independently Progressing Evaluation Billing Untimed Code Treatment Minutes 25 Complexity Low Certification Information Initial Certification Date 06/13/24 Ending Certification Date 09/11/24 Provider Signature Required Yes Provider Signature Shows Agreement With POC & Medical Necessity Physician NPI Number Write NPI# Here Physician Comment/Change : Physician Signature & Date Requested Please Sign/Date Here
== END 2024-08-13 10:44 | disposition home or self-care (01) ==
PROVIDERS: PCP Physician Assistant Medical; Visit Provider Orthopaedic Surgery
DX: M17.11 Unilateral primary osteoarthritis, right knee (principal); Z96.651 Presence of right artificial knee joint; R53.1 Weakness; R26.9 Unspecified abnormalities of gait and mobility; R26.81 Unsteadiness on feet; Z51.89 Encounter for other specified aftercare
CPT/HCPCS: 97016; 97110; 97112; 97116; 97140; 97161; 97164

== ENCOUNTER 2024-08-20 06:27 | Day surgery (SDC) | payer MEDICARE, BC, SELFPAY ==
[2024-08-20] VITALS (30 sets, daily range): BP systolic 99–136; BP diastolic 58–91; PULSE 51–84; RESP 16–20; TEMP 35.7–36.6; O2SAT 93–99; BMI 27.2
[2024-08-20] MEDS: LACTATED RINGERS 1000 ML 1,000 ML 100 ML IV ×2 (06:45→09:00)
[2024-08-20] MEDS: OXYCODONE (CR) 10 MG TAB.ER.12H PO (06:55)
[2024-08-20] MEDS: ACETAMINOPHEN 500 MG TABLET 1000 MG PO ×3 (06:55→20:37)
--- NOTE | 2024-08-20 07:06 | SUR.OPER ---
PATIENT QUESTIONS ANSWERED SATISFACTORILY PREOPERATIVELY. PATIENT BROUGHT TO OR #3 PER CART AFTER ADMINISTRATION OF A BLOCK. Patient positioned supine on OR #3 bed. The perioperative team supported arms bilaterally on arm boards. Final approval of positioning by surgeon.
[2024-08-20] MEDS: MIDAZOLAM HCL 1 MG/ML inj IVP (07:17)
[2024-08-20] MEDS: fentaNYL 100 MCG/2 ML inj IVP (07:17)
[2024-08-20 07:31] LABS: INR, Point of Care* 1.2 (0.8-1.4)
[2024-08-20] MEDS: TRANEXAMIC ACID 100 MG/ML INJ 1000 MG IV (07:34)
[2024-08-20] MEDS: SODIUM CHLORIDE 0.9 % (FLUSH) 10 ML SYRINGE IVF (07:40)
[2024-08-20] MEDS: CEFAZOLIN 2 GM INJ IVP (08:00)
--- NOTE | 2024-08-20 09:30 | PM.ORPRC ---
Procedure Note Date of procedure: 08/20/24 Procedure: PREOPERATIVE DIAGNOSIS: Left hip osteoarthritis POSTOPERATIVE DIAGNOSIS: Left hip osteoarthritis NAME OF OPERATION: Left total hip arthroplasty SURGEON: Jeffy Wolf MD MIDDLE STITCHER: Minnie Shepard PA-C, DANTE Sahu IMPLANTS: 1. [employer] [place] # 54 sector ingrowth cup 2. 36 x 54 +4 neutral polyethylene 3. Actis # 7 standard collared ingrowth stem 4. 36 -2 ceramic femoral head ANESTHESIA: Spinal ESTIMATED BLOOD LOSS: 210 cc COMPLICATIONS: None SPECIMENS: None DRAINS: None PREOPERATIVE ANTIBIOTICS: Ancef 2 grams INDICATIONS: The patient is a 69-year-old with a longstanding history of severe, unrelenting left hip pain secondary to end-stage left hip osteoarthritis. Despite appropriate nonoperative management, including activity modification, use of an assist device, anti-inflammatories, [id number] pain medication, physical therapy and injections, they continue to have pain and disability. Operative intervention was offered. The risks, benefits and expected outcomes were discussed in detail. These included but were not limited to: Infection, bleeding, injury to blood vessel or nerve, venous thromboembolism. All questions were answered to their satisfaction. Use of an marketing assistant manager was necessary throughout the case for patient positioning and safety, soft tissue retraction and closure. PROCEDURE: The patient was placed supine on the Davin table. General anesthesia was administered. The marketing assistant manager made sure the patient was properly positioned. The left hip was prepped and draped in the usual sterile fashion. The image intensifier was brought in for a perfect AP pelvis and a perfect double tear drop AP view of each hip which were used for intraoperative templating with our fluoroscopic guide. An oblique incision was made 3 cm distal and 3 cm lateral to the anterior superior iliac spine. The marketing assistant manager retracted the soft tissues to protect them. Subcutaneous dissection was taken with electrocautery to the superficial fascia. The fascia was divided in line with the incision. Blunt dissection was carried medially to the tensor fascia naye and sartorius interval. Deep dissection was carried with electrocautery. The circumflex vessels were cauterized and divided. The capsule was exposed and then divided in a T-fashion, tagged with #1 Ethibond sutures. Retractors were placed in the joint, held by the marketing assistant manager. The corkscrew was placed in the femoral head. The neck cut was made in the subcapital region. We made a second neck cut more distal. The napkin ring of bone was removed. The femoral head was removed intact. Acetabular retractors were placed, held by the marketing assistant manager. The labrum was sharply debrided. The capsule was released. The anterior column was deficient. The 43 mm reamer was used to the true medial wall. We then enlarged in 2 mm increments using the image intensifier for our reamer placement. We impacted the cup which had tenuous purchase, given the anterior column deficiency. Therefore, we elected to place screws to improve our fixation. First screw was placed straight up the ilium. The drill bit broke off in the ilium and was not retrievable. A 6.5 mm x 40 mm screw was placed up the ilium, next to the broken drill bit, which was left in place. A 2nd 6.5 mm x 30 mm screw was placed more posterior in the ilium. This provides excellent fixation of the cup. We placed the polyethylene. Attention was then turned to the proximal femur. The limb was placed in 140 degrees of external rotation, maximum extension and adduction. A significant amount of time was spent releasing the capsule to allow us to deliver the femur into the wound and complete the femoral side safely. Retractors were held by the marketing assistant manager throughout the femoral preparation. The jukebox checker and canal finder were used. Broaches were used to a stable size. The calcar reamer was used. Trial components were placed. The hip was reduced and was found to be stable with appropriate soft tissue tension. Length and offset had been nicely restored using the image intensifier and our fluoroscopic guide. Trial components were removed. The stem was impacted. We placed the femoral head. Again, the hip was reduced and was found to be stable with appropriate soft tissue tension. Length and offset had been nicely restored. The marketing assistant manager did a three minute dilute Betadine solution soak. The marketing assistant manager irrigated the wound with 3 liters of normal saline via pulse lavage. The marketing assistant manager repaired the anterior capsule with a #1 Vicryl and our previously placed Ethibond sutures. The marketing assistant manager closed the fascia over the tensor fascia naye with a #1 PDO Stratafix, subcutaneous tissues with 2-0 Vicryl, skin with a running 3-0 Stratafix and glue. A dry dressing was applied by the marketing assistant manager. Sponge and needle counts were correct x 2. The patient tolerated the procedure well; there were no apparent complications. They were awakened and extubated in the operating room, sent to the Post-Anesthesia Care Unit in satisfactory condition. PLAN: 1. The patient will be mobilized with physical therapy, weight-bearing as tolerates 2. The patient's usual dose of Coumadin can be restarted 3. The patient will be discharged once medically appropriate
--- NOTE | 2024-08-20 09:30 | SUR.OPER ---
SEE SURGEON NOTE REGARDING A DRILL BIT SEGMENT LEFT IN THE PELVIC ILIUM.
--- NOTE | 2024-08-20 10:07 | W.PM.NB ---
Nerve Block Nerve Block Time Seen by Provider: 07:40 Date Seen: 08/20/24 Type of block requested by surgeon for post-operative analgesia: SULEIMAN/LFCN Side: left Time out performed: Yes Verification of patient name: Yes Verification of date of : Yes Site marking: site marked Name of person performing procedure: Jesse Continuous monitoring Was continuous monitoring of O2 sat, B/P, classroom monitor, recorded every 15 minutes?: Yes Procedure Checklist: sterile prep, needles and gloves Ultrasound guided. Images saved: Yes Medications given in 5ml increments after negative aspiration: Ropivicaine %: 0.5 mL: 30 Needle gauge: 20 Precedex (mcg): 25 Patient tolerated procedure well: Yes Additional comments: Needle noted below psoas tendon needle noted adjacent to LFCN Block Charges Block Charge (with Pro Fee): Other Periph Nerve Block Use of Ultrasound Machine for Block: Yes- US Guidance/pain block
--- NOTE | 2024-08-20 10:07 | W.ANESCHARGE ---
Anesthesia Charges Start Date/Time Anesthesia Start Date: 08/20/24 Anesthesia Start Time: 07:30 Stop Date/Time Anesthesia Stop Date: 08/20/24 Anesthesia Stop Time: 10:13 Coding CPT Codes CPT Codes: ANESTH HIP ARTHROPLASTY - 87446 ([id number]) P3 - PATIENT W/SEVERE SYS DISEASE, QK - DESOLDERER 2-4 CNCRNT ANES PROC, QX - USER EXPERIENCE ARCHITECT SVC W/ MD MED DIRECTION
--- NOTE | 2024-08-20 10:15 | W.ANESCHARGE ---
Anesthesia Charges Start Date/Time Anesthesia Start Date: 08/20/24 Anesthesia Start Time: 07:30 Stop Date/Time Anesthesia Stop Date: 08/20/24 Anesthesia Stop Time: 10:13 Coding CPT Codes CPT Codes: ANESTH HIP ARTHROPLASTY - 16338 ([id number]) P3 - PATIENT W/SEVERE SYS DISEASE, QK - GAS OPERATIONS ANALYST 2-4 CNCRNT ANES PROC, QX - RN MILITARY SVC W/ MD MED DIRECTION
[2024-08-20] MEDS: CEFAZOLIN 2 GM in 0.9 % SODIUM CHLORIDE Mini-bag 100 ML IVPB ×2 (14:06→22:43)
--- NOTE | 2024-08-20 14:21 | PM.IMCN1 ---
Date of Consult Patient: [facility] Patient Consult date: 08/20/24 Requesting Physician: Orthopedics Primary Care Provider: Emely Henson PA-C Consult Narrative Reason for consult: Medical management Narrative: Tobi Ugarte is a 69 year old male past medical history significant for osteoarthritis, h/o pulmonary nodule, BPH, chronic microcytic anemia, diabetes mellitus, hypertension, hyperlipidemia, COPD, chronic systolic heart failure, PAOLO on CPAP, paroxysmal atrial fibrillation status post ablation x2 on chronic anticoagulation, SVT, severe aortic stenosis, LBBB, PAD, ascending aortic aneurysm is POD#0 s/p left total hip arthroplasty, Dr. Wolf. There have been no perioperative complications or nursing concerns reported. Estimated total blood loss documented as 210ml. Updated and reviewed the active medical problems, past medical history, past surgical history, social history, allergies and medications in our electronic EMR. Postoperatively, patient reports no pain, well managed at this point. Vitally stable. Tolerating orals without nausea vomiting. Has been up with physical therapy postoperatively thus far. Will return home with support of 2 sons and daughter. Review of Systems Narrative: REVIEW OF SYSTEMS: Complete review of systems performed and negative unless otherwise stated in HPI or below. PFSH [facility] Medical History Chronic anticoagulation ?Z79.01 - snf (current) use of anticoagulants (ICD-10) Ascending aortic aneurysm (~09/2023) ?I71.21 - Aneurysm of the ascending aorta, without rupture (ICD-10) Vertigo ?R42 - Dizziness and giddiness (ICD-10) Psoriasis (~08/11/15) ?L40.9 - Psoriasis, unspecified (ICD-10) Pancreatic lesion (~05/23/23) ?K86.9 - Disease of pancreas, unspecified (ICD-10) Depression ?F32.A - Depression, unspecified (ICD-10) PAD (peripheral artery disease) ?I73.9 - Peripheral vascular disease, unspecified (ICD-10) Hyperlipidemia ?E78.5 - Hyperlipidemia, unspecified (ICD-10) COPD (chronic obstructive pulmonary disease) ?J44.9 - Chronic obstructive pulmonary disease, unspecified (ICD-10) Chronic systolic (congestive) heart failure (~04/20/23) ?I50.22 - Chronic systolic (congestive) heart failure (ICD-10) PAOLO on CPAP ?G47.33 - Obstructive sleep apnea (adult) (pediatric) (ICD-10) Paroxysmal atrial fibrillation ?I48.0 - Paroxysmal atrial fibrillation (ICD-10) SVT (supraventricular tachycardia) ?I47.10 - Supraventricular tachycardia, unspecified (ICD-10) Severe aortic stenosis (04/20/23) ?I35.0 - Nonrheumatic aortic (valve) stenosis (ICD-10) Left bundle branch block (~06/2023) ?I44.7 - Left bundle-branch block, unspecified (ICD-10) Diabetes mellitus ?E11.9 - Type 2 diabetes mellitus without complications (ICD-10) Microcytic anemia ?D50.9 - Iron deficiency anemia, unspecified (ICD-10) Low TSH level ?R79.89 - Other specified abnormal findings of blood chemistry (ICD-10) Pulmonary nodule ?R91.1 - Solitary pulmonary nodule (ICD-10) Osteoarthritis of left hip ?M16.12 - Unilateral primary osteoarthritis, left hip (ICD-10) Former smoker ?Z87.891 - Personal history of nicotine dependence (ICD-10) Renal lesion (~08/2023) ?N28.9 - Disorder of kidney and ureter, unspecified (ICD-10) Pulmonary lesion ?J98.4 - Other disorders of lung (ICD-10) Bicuspid aortic valve (~03/24/20) ?Q23.1 - Congenital insufficiency of aortic valve (ICD-10) Atherosclerotic heart disease of [place] coronary artery without angina pectoris (~04/20/23) ?I25.10 - Atherosclerotic heart disease of [place] coronary artery without angina pectoris (ICD-10) Normal coronary angiogram Rotator cuff tear ?M75.100 - Unspecified rotator cuff tear or rupture of unspecified shoulder, not specified as traumatic (ICD-10) Liver cyst ?K76.89 - Other specified diseases of liver (ICD-10) Rupture of left long head biceps tendon ?S46.112A - Strain of muscle, fascia and tendon of long head of biceps, left arm, initial encounter (ICD-10) Partial tear of subscapularis tendon ?S46.819A - Strain of other muscles, fascia and tendons at shoulder and upper arm level, unspecified arm, initial encounter (ICD-10) Unspecified rotator cuff tear or rupture of left shoulder, not specified as traumatic ?M75.102 - Unspecified rotator cuff tear or rupture of left shoulder, not specified as traumatic (ICD-10) Stenosis of cervical spine ?M48.02 - Spinal stenosis, cervical region (ICD-10) Surgical History Status post total right knee replacement (06/18/24) ?Z96.651 - Presence of right artificial knee joint (ICD-10) History of total right knee replacement (06/18/24) ?Z96.651 - Presence of right artificial knee joint (ICD-10) History of ankle surgery (~06/2022) ?Z98.890 - Other specified postprocedural states (ICD-10) Status post transcatheter aortic valve replacement (~06/29/23) ?Z95.2 - Presence of prosthetic heart valve (ICD-10) History of surgery on right wrist (12/08/18) ?Z98.890 - Other specified postprocedural states (ICD-10) S/P hardware removal (10/20/22) ?Z98.890 - Other specified postprocedural states (ICD-10) Hx of nasal septoplasty (04/23/09) ?Z98.890 - Other specified postprocedural states (ICD-10) S/P lumbar fusion ?Z98.1 - Arthrodesis status (ICD-10) History of cardiac radiofrequency ablation ?Z98.890 - Other specified postprocedural states (ICD-10) History of cervical discectomy ?Z98.890 - Other specified postprocedural states (ICD-10) Status post arthroscopy of right shoulder (04/22/08) ?Z98.890 - Other specified postprocedural states (ICD-10) Status post arthroscopy of left shoulder (02/19/10) ?Z98.890 - Other specified postprocedural states (ICD-10) S/P trigger finger release (11/29/18) ?Z98.890 - Other specified postprocedural states (ICD-10) History of carpal tunnel surgery of right wrist (11/29/18) ?Z98.890 - Other specified postprocedural states (ICD-10) Family History Brother Diabetes Social History Narrative: . from glioblastoma. Youngest son lives with him and oldest son lives just down the street. Daughter is one of our charge nurses. 3 adult kids. 2 grandkids. 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 One of his adult sons lives with him. Former smoker- Quit 35 years ago. Denies recreational drugs Alcohol -rare use (less than one drink per week) What is your current living situation?: I presently have a place to live Problems where you live: declined to answer Problems where you live details: NA In the past 12 months, utilities in danger of being shut off: no In past 12 months, lack of transportation kept you from medical appts, meetings, work, or getting things needed for daily living: no In the past 12 mos, have been you worried that your food would run out before you had money to buy more?: never true In the past 12 mos, the food you bought just didn't last and you didn't have money to buy more?: never true Smoking Status: Never smoker Second hand tobacco smoke exposure: No How often do you have a drink containing alcohol: monthly or less How often do you have six or more drinks on one occasion: Never AUDIT-C Alcohol total score: 1 Non-prescribed substance use: denies use Caffeine: Yes How often does anyone, including family, friends and others, physically hurt you: never How often does anyone, including family, friends and others, insult or talk down to you: never How often does anyone, including family, friends and others, threaten you with harm: never How often does anyone, including family, friends and others, scream or curse at you: never Meds Home Medications and Allergies Home Medications ?Medication ?Instructions ?Recorded ?Confirmed ?Type albuterol sulfate 90 mcg/actuation 1 - 2 inh inhalation Q6H PRN 06/27/22 08/20/24 History aerosol inhaler ipratropium 0.5 mg-albuterol 3 mg 3 ml inhalation Q6H PRN 06/27/22 08/20/24 History (2.5 mg base)/3 mL nebulization soln acetaminophen 500 mg tablet 500 mg PO Q4H PRN 01/11/23 08/20/24 History nitroglycerin 0.4 mg sublingual 0.4 mg sublingual Q5M PRN 01/11/23 08/20/24 History tablet betamethasone dipropionate 0.05 % 1 applic topical BID 07/20/23 08/20/24 History topical cream ferrous sulfate 324 mg (65 mg 324 mg PO DAILY 08/20/24 08/20/24 History iron) tablet,delayed release metformin 1,000 mg tablet 1,000 mg PO BIDWM 08/20/24 08/20/24 History omeprazole 20 mg capsule,delayed 20 mg PO DAILY 08/20/24 08/20/24 History release Allergies Allergy/AdvReac Type Severity Reaction Status Date / Time No Known Drug Allergies Allergy Verified 08/08/24 14:43 Exam Narrative: Exam Narrative: PHYSICAL EXAM General: Pleasant, conversant, NAD HEENT: Normocephalic, atraumatic, sclera white, EOMI, oral mucosa moist Cardiovascular: RRR, S1S2. No pitting edema Pulmonary: CTA bilaterally without rhonchi, rales, expiratory wheezes. No dyspnea Neurological: Alert, answering questions appropriately, cranial nerves intact, no focal findings Extremities: No gross joint deformity or swelling. Postoperative dressing in place, dry. Neurovascularly intact Skin: Warm, dry. Const: Vital Signs, click to edit/add: Vital Signs - 24 hr 08/20/24 07:00 08/20/24 07:17 08/20/24 07:20 Temperature 97.8 F Pulse Rate 70 78 61 Respiratory Rate 16 16 16 Blood Pressure 136/65 132/74 114/63 Pulse Oximetry 97 99 98 Oxygen Delivery Me thod Room Air Nasal Cannula Room Air Oxygen Flow Rate 3 08/20/24 10:10 08/20/24 10:15 08/20/24 10:20 Temperature 97.9 F Pulse Rate 56 L 56 L 54 L Respiratory Rate 16 16 16 Blood Pressure 99/63 102/67 104/66 Pulse Oximetry 97 97 96 Oxygen Delivery Me thod Room Air Room Air Room Air Oxygen Flow Rate 08/20/24 10:25 08/20/24 10:30 08/20/24 10:35 Temperature 97.9 F Pulse Rate 54 L 53 L 53 L Respiratory Rate 16 16 16 Blood Pressure 110/61 108/63 116/63 Pulse Oximetry 95 96 95 Oxygen Delivery Me thod Room Air Room Air Room Air Oxygen Flow Rate 08/20/24 10:40 08/20/24 10:45 08/20/24 10:50 Temperature 97.9 F Pulse Rate 52 L 53 L 51 L Respiratory Rate 16 16 16 Blood Pressure 110/66 116/67 115/63 Pulse Oximetry 95 95 95 Oxygen Delivery Me thod Room Air Room Air Room Air Oxygen Flow Rate 08/20/24 10:55 08/20/24 11:00 08/20/24 11:15 Temperature 97.9 F 96.9 F L 96.2 F L Pulse Rate 52 L 57 L 56 L Respiratory Rate 16 20 20 Blood Pressure 117/69 109/71 129/63 Pulse Oximetry 96 95 96 Oxygen Delivery Me thod Room Air Room Air Room Air Oxygen Flow Rate 08/20/24 11:30 08/20/24 11:45 08/20/24 12:00 Temperature 96.9 F L 96.9 F L 96.9 F L Pulse Rate 60 62 63 Respiratory Rate 20 20 20 Blood Pressure 101/70 111/73 107/64 Pulse Oximetry 96 96 96 Oxygen Delivery Me thod Room Air Room Air Room Air Oxygen Flow Rate 08/20/24 12:15 08/20/24 12:44 Temperature 96.9 F L 96.9 F L Pulse Rate 62 81 Respiratory Rate 20 20 Blood Pressure 117/77 119/71 Pulse Oximetry 96 93 Oxygen Delivery Me thod Room Air Room Air Oxygen Flow Rate Assessment and Plan Assessment and plan (1) Osteoarthritis of left hip: Problem comment: -POD#0 s/p L RAKESH, Dr. Wolf (DOS 08/20/24) -perioperative management including pain management and anticoagulation per Orthopedic surgery -encourage postoperative pulmonary hygiene -PT OT consults -plan to discharge home with son tomorrow Status: Chronic (2) Diabetes mellitus: Problem comment: Diagnosed 1996. Most recent A1c 7.0 Hold home metformin, continue glipizide Glucose checks ACHS post operatively. Holding off on insulin at this time. Status: Chronic (3) HTN (hypertension): Problem comment: Resume metoprolol, losartan, amlodipine Status: Chronic (4) COPD (chronic obstructive pulmonary disease): Problem comment: Quit smoking at age 32. Stable as of last CT scan 08/04/2024 Follows with pulmonology. Not currently on inhaler treatments Encourage perioperative pulmonary hygiene including incentive spirometry Status: Chronic (5) PAOLO on CPAP: Problem comment: CPAP at bedtime Encourage pulmonary hygiene Status: Chronic (6) Paroxysmal atrial fibrillation: Problem comment: S/p ablation x2. On chronic anticoagulation with warfarin, per Cardiology recommendations. INR 1.2 today Telemetry postoperatively Resume anticoagulation - pharmacy to manage, continue beta-puneet Status: Chronic (7) SVT (supraventricular tachycardia): Problem comment: [id number] Lopressor 12.5 mg BID given frequent SVT episodes by cardiology Telemetry postoperatively Status: Acute (8) Severe aortic stenosis: Problem comment: s/p TVAR 06/29/2023 Status: Chronic Total Time Spent Total Time Spent: Today I spent 60 minutes seeing the patient, discussing the patient with ER staff, reviewing Expanse and Epic notes/diagnostics, discussing the care plan with our team that includes social work, PT/OT, pharmacy, RT, longterm and documenting my impressions and plan in the medical record.
[2024-08-20] MEDS: GABAPENTIN 600 MG TABLET PO (17:33)
[2024-08-20] MEDS: WARFARIN 2.5 MG TABLET 7.5 MG PO (17:33)
--- NOTE | 2024-08-20 18:27 | PC.NURSE ---
End of Shift Note: Patient arrived to the unit around 11 am. Alert and orientated. Has not complained of pain. Has only taken tylenol. Has been up and voided a large amount unfortunately he urinated right into the toilet so unable to measure. No complainte of nausea tolerating a regular diet plan is he will discharge home tomorrow with family.
[2024-08-20] MEDS: SENNOSIDES 1 TAB TABLET 2 TAB PO (20:38)
[2024-08-20] MEDS: ATORVASTATIN CALCIUM 40 MG TABLET PO (20:38)
[2024-08-20] MEDS: METOPROLOL TARTRATE 25 MG TABLET 12.5 MG PO (20:38)
[2024-08-21] VITALS: BP 126/71; PULSE 77; RESP 16; TEMP 36.8; O2SAT 95
[2024-08-21] MEDS: ACETAMINOPHEN 500 MG TABLET 1000 MG PO ×2 (03:03→08:25)
[2024-08-21 04:00] VITALS: BP 124/72; PULSE 74; RESP 16; O2SAT 95
[2024-08-21 06:17] LABS: Basophils Absolute Auto 0.02 K/uL (0.00-0.30); Basophils Percent Auto 0.2 % (0.0-3.0); Eosinophils Absolute Auto 0.01 K/uL (0.00-0.50); Eosinophils Percent Auto 0.1 % (0.0-7.0); Hematocrit 27.5 % (37.0-53.0); Immature Granulocytes Abs Auto 0.02 K/uL (0.00-0.30); Immature Granulocytes Pct Auto 0.2 %; Lymphocytes Percent Auto 5.1 % (20-44); Mean Corpuscular HGB Conc 33 gm/dL (32-36); Mean Corpuscular Hemoglobin 26 pg (26-34); Mean Corpuscular Volume 78 fL (80-100); Monocytes Percent Auto 11.1 % (0.0-11.0); Neutrophils Percent Auto 83.3 % (42.0-72.0); Platelet Count* 252 K/uL (140-440); RDW Coefficient of Variation % 15.3 % (11.5-15.5); Red Blood Count 3.51 m/uL (4.30-5.90)
[2024-08-21 06:25] LABS: Slide Review Reflex No
[2024-08-21] MEDS: OMEPRAZOLE 20 MG CAPSULE DR PO (06:25)
[2024-08-21 06:27] LABS: Potassium* 4.3 mmol/L (3.6-5.1)
[2024-08-21 06:29] LABS: Blood Urea Nitrogen* 22 mg/dL (7-30); Creatinine* 0.6 mg/dL (0.5-1.5); Est. Creatinine Clearance* 62.91; Estimated Glomerular Filt Rate 104 ml/min; INR 1.14 (0.91-1.10); Prothrombin Time 15.5 Seconds
--- NOTE | 2024-08-21 06:29 | PC.NURSE ---
Pt doing well. Up with one assist and walker with gait belt to the BR. VSS pain controlled with scheduled tylenol Pt refuses any narcotic. Hip drsg is CDI.
[2024-08-21 06:40] LABS: Sodium* 135 mmol/L (135-149)
[2024-08-21 07:00] VITALS: PULSE 60; PULSE 66; RESP 18; O2SAT 96
[2024-08-21 08:00] VITALS: BP 139/62; PULSE 66; RESP 18; TEMP 36.4; O2SAT 96
[2024-08-21] MEDS: AMLODIPINE 10 MG TABLET PO (08:23)
[2024-08-21] MEDS: TAMSULOSIN HCL 0.4 MG CAPSULE PO (08:24)
[2024-08-21] MEDS: METOPROLOL TARTRATE 25 MG TABLET 12.5 MG PO (08:24)
[2024-08-21] MEDS: LOSARTAN POTASSIUM 50 MG TABLET 100 MG PO (08:24)
[2024-08-21] MEDS: glipiZIDE XL 5 MG TAB 10 MG PO (08:24)
--- NOTE | 2024-08-21 08:38 | P.ORPN_ITS ---
Subjective Subjective Time Seen by Provider: 08:00 Date Seen: 08/21/24 Principal diagnosis: Status post left hip replacement Interval history: Cecil is comfortable at rest. He did not get much sleep last night he states. He denies lightheadedness or dizziness. He has ambulated to the restroom. He would like [place] sent to his pharmacy, rather than oxycodone to use for pain. He states he probably will use minimal if any. Ortho Exam Narrative Exam Narrative: Alert and oriented x3. Patient is in no acute distress. Converses without la bored breathing. Hearing is grossly intact. Ambulates with a walker. Examination of the left hip shows the dressing is intact. Mild edema. No erythema or warmth or sign of infection. Area of decreased sensation distal to incision, otherwise CMS intact left lower extremity. Calves are soft and nontender. Const Vital Signs, click to edit/add: Vital Signs - 24 hr 08/20/24 10:10 08/20/24 10:15 08/20/24 10:20 Temperature 97.9 F Pulse Rate 56 L 56 L 54 L Pulse Rate [Pulse Oximeter] Respiratory Rate 16 16 16 Blood Pressure 99/63 102/67 104/66 Blood Pressure [Left Arm] Pulse Oximetry 97 97 96 Oxygen Delivery Method Room Air Room Air Room Air 08/20/24 10:25 08/20/24 10:30 08/20/24 10:35 Temperature 97.9 F Pulse Rate 54 L 53 L 53 L Pulse Rate [Pulse Oximeter] Respiratory Rate 16 16 16 Blood Pressure 110/61 108/63 116/63 Blood Pressure [Left Arm] Pulse Oximetry 95 96 95 Oxygen Delivery Method Room Air Room Air Room Air 08/20/24 10:40 08/20/24 10:45 08/20/24 10:50 Temperature 97.9 F Pulse Rate 52 L 53 L 51 L Pulse Rate [Pulse Oximeter] Respiratory Rate 16 16 16 Blood Pressure 110/66 116/67 115/63 Blood Pressure [Left Arm] Pulse Oximetry 95 95 95 Oxygen Delivery Method Room Air Room Air Room Air 08/20/24 10:55 08/20/24 11:00 08/20/24 11:15 Temperature 97.9 F 96.9 F L 96.2 F L Pulse Rate 52 L 57 L 56 L Pulse Rate [Pulse Oximeter] Respiratory Rate 16 20 20 Blood Pressure 117/69 109/71 129/63 Blood Pressure [Left Arm] Pulse Oximetry 96 95 96 Oxygen Delivery Method Room Air Room Air Room Air 08/20/24 11:30 08/20/24 11:45 08/20/24 12:00 Temperature 96.9 F L 96.9 F L 96.9 F L Pulse Rate 60 62 63 Pulse Rate [Pulse Oximeter] Respiratory Rate 20 20 20 Blood Pressure 101/70 111/73 107/64 Blood Pressure [Left Arm] Pulse Oximetry 96 96 96 Oxygen Delivery Method Room Air Room Air Room Air 08/20/24 12:15 08/20/24 12:44 08/20/24 13:00 Temperature 96.9 F L 96.9 F L 97.7 F Pulse Rate 62 81 73 Pulse Rate [Pulse Oximeter] Respiratory Rate 20 20 20 Blood Pressure 117/77 119/71 109/64 Blood Pressure [Left Arm] Pulse Oximetry 96 93 98 Oxygen Delivery Method Room Air Room Air Room Air 08/20/24 13:30 08/20/24 14:00 08/20/24 15:00 Temperature 97.7 F 97.7 F Pulse Rate 73 73 Pulse Rate [Pulse Oximeter] Respiratory Rate 20 20 Blood Pressure 113/67 114/91 H Blood Pressure [Left Arm] Pulse Oximetry 98 98 95 Oxygen Delivery Method Room Air Room Air Room Air 08/20/24 15:56 08/20/24 16:37 08/20/24 17:02 Temperature 97.5 F L Pulse Rate 72 74 73 Pulse Rate [Pulse Oximeter] Respiratory Rate 20 20 Blood Pressure 119/91 H 110/58 L Blood Pressure [Left Arm] Pulse Oximetry 95 97 Oxygen Delivery Method Room Air Room Air 08/20/24 20:29 08/20/24 23:00 08/20/24 23:12 Temperature Pulse Rate 70 Pulse Rate [Pulse Oximeter] 84 Respiratory Rate 16 Blood Pressure Blood Pressure [Left Arm] 125/72 Pulse Oximetry 96 95 Oxygen Delivery Method Room Air Room Air 08/21/24 00:00 08/21/24 04:00 Temperature 98.2 F Pulse Rate Pulse Rate [Pulse Oximeter] 77 74 Respiratory Rate 16 16 Blood Pressure Blood Pressure [Left Arm] 126/71 124/72 Pulse Oximetry 95 95 Oxygen Delivery Method Room Air Room Air Assessment and Plan Assessment and plan (1) Status post left hip replacement: Problem details: 08/20/2024, Dr. Wolf Status: Acute Assessment and Plan: Plan for discharge is today, and when they meets discharge criteria. DVT prophylaxis upon discharge he has usual dose of warfarin. I have asked him to recheck his INR on Monday. He makes his own appointments he states. His primary MD Emely to monitor. Remove dressing 1 week. Observe wound and phone Orthopedics with any questions or concerns Use Ice on operative hip unrestricted. Return to clinic in 7-10 days for a wound check Return to clinic in 6 weeks with surgeon Minimize narcotic use. Wean off and discontinue soon as possible. I have canceled the oxycodone and sent [place] to his pharmacy. He states he will use little if any narcotics. Activities as tolerated. No strenuous activity. Attend outpt PT
--- NOTE | 2024-08-21 11:25 | PC.NURSE ---
DC: pt pleasant, alert, oriented and vitally stable. Pt rates pain 5/10 with movement, discussed prn medication options, pt stated tolerating pain with scheduled medication. Pt moves SBA, tolerates well. DC information given to pt and daughter, topics discussed include follow up, medications and dressing care. IV removed tip intact. DC home with daughter at 1110.
== END 2024-08-21 11:10 | disposition home or self-care (01) ==
LOC: OR 06:28 → MEDSURG 07:42
PROVIDERS: Anesthesiology; Physician Assistant; PCP Physician Assistant Medical; Visit Provider Orthopaedic Surgery
PROC: (CPT 27130; principal; 2024-08-20 07:45)
DX: M16.12 Unilateral primary osteoarthritis, left hip (principal); G89.18 Other acute postprocedural pain; E11.9 Type 2 diabetes mellitus without complications; Z79.84 Long term (current) use of oral hypoglycemic drugs; I11.0 Hypertensive heart disease with heart failure; I50.22 Chronic systolic (congestive) heart failure; Z79.01 Long term (current) use of anticoagulants; G47.33 Obstructive sleep apnea (adult) (pediatric); I47.10 Supraventricular tachycardia, unspecified; N40.0 Benign prostatic hyperplasia without lower urinary tract symptoms; D50.9 Iron deficiency anemia, unspecified; Z99.89 Dependence on other enabling machines and devices; J44.9 Chronic obstructive pulmonary disease, unspecified; I48.0 Paroxysmal atrial fibrillation; I35.0 Nonrheumatic aortic (valve) stenosis; I44.7 Left bundle-branch block, unspecified; Z95.2 Presence of prosthetic heart valve; I73.9 Peripheral vascular disease, unspecified; E78.5 Hyperlipidemia, unspecified; I71.21 Aneurysm of the ascending aorta, without rupture
CPT/HCPCS: 27130; 01214; 36415; 64450; 73501; 76000; 76942; 82565; 82947; 82962; 84132; 84295; 84520; 85025; 85610; 86850; 86900; 86901; 97110; 97116; 97162; 97165; 97530; 97535; A9270; C1713; C1776; J0330; J0665; J0690; J1100; J2250; J2405; J2704; J3010; J3490; J7120

== ENCOUNTER 2024-09-23 09:13 | Outpatient (CLI) | payer MEDICARE, BC, SELFPAY | END 2024-09-23 09:14 | disposition home or self-care (01) | LOC: NFLDREF 09-25 08:34 | PROVIDERS: PCP Physician Assistant Medical; Referring Provider Physician Assistant Medical; Visit Provider Physician Assistant Medical | DX: Z79.01 Long term (current) use of anticoagulants (principal); I48.0 Paroxysmal atrial fibrillation | CPT/HCPCS: 85610 ==

== ENCOUNTER 2024-09-30 09:06 | Outpatient (CLI) | payer MEDICARE, BC, SELFPAY | END 2024-09-30 09:07 | disposition home or self-care (01) | LOC: NFLDREF 10-02 02:36 | PROVIDERS: PCP Physician Assistant Medical; Referring Provider Physician Assistant Medical; Visit Provider Physician Assistant Medical | DX: I48.0 Paroxysmal atrial fibrillation (principal); Z79.01 Long term (current) use of anticoagulants | CPT/HCPCS: 85610 ==

== ENCOUNTER 2024-10-03 12:28 | Outpatient (CLI) | payer MEDICARE, BC, SELFPAY ==
--- NOTE | 2024-10-03 13:00 | CRLHL7_ITS ---
For Patients: As a result of the Century Cures Act, medical imaging exams and procedure reports are released immediately into your electronic medical record. You may view this report before your referring provider. If you have questions, please contact your health care provider. INDICATION: Lumbar spinal stenosis. Neurogenic claudication. TECHNIQUE : Lumbar spine MRI without contrast. COMPARISON: CT abdomen/pelvis from 01/07/2013. FINDINGS : Five lumbar type vertebral bodies, with the last fully formed disc space designated as L5-S1. Straightening of the typical lumbar lordotic curvature. Mild dextroconvex lumbar curvature. No recent compression fracture or marrow replacing process. Lower cord/conus signal is normal. The conus terminates at a normal location. No intradural lesion. Left renal cyst. Osseous fusion along the L2-3 interspace. Postsurgical changes of L3 through L5 dorsal lateral instrumented/bone graft fusion. No evidence of hardware loosening. The bone graft is well integrated with the posterior elements. Laminectomy changes are present at L4 through S1. The spinal canal is well decompressed dorsally. Discs/Endplates: L1-2 and L5-S1 advanced disc height loss, disc desiccation endplate degenerative endplate remodeling. Lesser disc degeneration elsewhere. Multilevel bulky paravertebral bridging osteophytes anteriorly. Trace type 1 Modic changes at the L5-S1 level. Findings at individual levels as follows: T11-12: Trace anterolisthesis. Mild disc bulge. Bilateral facet arthrosis. Mild bilateral neural foraminal stenosis. No spinal canal stenosis. T12-L1: 5 millimeters anterolisthesis. Moderate disc osteophyte complex. A superimposed 5 millimeter left subarticular protrusion. Bilateral facet arthrosis. A small right-sided facet joint synovial cyst. Left subarticular recess stenosis with likely compression of the traversing left L1 nerve root. Moderate spinal canal stenosis. Mild right and moderate left neural foraminal stenosis. L1-2: Large disc osteophyte complex. Bilateral facet arthrosis. Moderate spinal canal stenosis. Mild left and [id number] right neural foraminal stenosis. L2-3: Large disc osteophyte complex. Bilateral facet arthrosis. Mild spinal canal stenosis and mild bilateral foraminal stenosis. L3-4: Trace anterolisthesis. Moderate disc osteophyte complex. Spinal canal decompressed dorsally. No neural foraminal stenosis. L4-5: Grade 1 anterolisthesis. Laminectomy changes decompress the spinal canal dorsally. Moderate disc osteophyte complex. Bilateral facet arthrosis. Mild right and [id number]-[id number] left neural foraminal stenosis. L5-S1: 5 millimeters retrolisthesis. Large disc osteophyte complex, asymmetric to the right. A superimposed 6 millimeter right subarticular disc extrusion with slight caudal migration. Compression of the traversing right S1 nerve root. Bilateral facet arthrosis. Mild spinal canal stenosis, [id number] left and moderately advanced right neural foraminal stenosis with compression of the right L5 nerve root. Imaged SI joints: Bilateral arthrosis. Imaged sacrum: Within normal limits. IMPRESSION: 1. Postsurgical changes of L3 through L5 dorsal lateral instrumented and bone graft fusion without MRI visualized complication. Osseous interbody fusion at L2-3 may be surgical. L4 through S1 laminectomies decompress the spinal canal dorsally. 2. At T12-L1, moderate spinal canal stenosis and left subarticular recess stenosis with likely compression of the traversing left L1 nerve root by a disc protrusion. Moderate left neural foraminal stenosis. 3. At L5-S1, a right subarticular disc extrusion compresses the traversing right S1 nerve root. Moderately advanced right neural foraminal stenosis with compression of the right L5 nerve root. 4. Advanced disc degeneration at the L1-2 and L5-S1 levels. Trace type 1 Modic changes at L5-S1. Dictated by Jeff Hubbard MD @ 10/04/2024 10:12:18 AM (Electronically Signed)
== END 2024-10-03 12:29 | disposition home or self-care (01) ==
PROVIDERS: PCP Physician Assistant Medical; Visit Provider Physician Assistant Surgical
DX: M48.062 Spinal stenosis, lumbar region with neurogenic claudication (principal); M48.07 Spinal stenosis, lumbosacral region; M51.369 Other intervertebral disc degeneration, lumbar region without mention of lumbar back pain or lower extremity pain
CPT/HCPCS: 72148

== ENCOUNTER 2024-10-17 10:02 | Outpatient (CLI) | payer MEDICARE, BC, SELFPAY | END 2024-10-17 10:03 | disposition home or self-care (01) | LOC: NFLDREF 10-23 02:35 | PROVIDERS: PCP Physician Assistant Medical; Referring Provider Physician Assistant Medical; Visit Provider Physician Assistant Medical | DX: R35.0 Frequency of micturition (principal) | CPT/HCPCS: 87086 ==

== ENCOUNTER 2024-10-28 09:15 | Outpatient (RCR) | payer MEDICARE, BC, SELFPAY ==
--- NOTE | 2024-08-15 13:02 | PT.OPE ---
PT [facility] PT [facility] Eval Start: 08/15/24 08:47 Freq: Status: Active Protocol: Document 08/15/24 08:51 LSL (Rec: 08/15/24 12:56 LSL [id number]) E-signed By Angie Peoples PT Physical Therapy Outpatient Evaluation Insurance Information Recert Due Date 11/13/24 Insurance Name Medicare B,[employer] Insurance Information/Comments supplement Medical Diagnosis R hip OA, s/p R RAKESH Treating Diagnosis pain, weakness, impaired ROM, impaired balance, impaired gait Referring MD Wolf Subjective Subjective Pt. reports pain is in the lateral hip and inner thigh. This impacts his ability to walk and climb stairs. Pain Comments 6/10 worst, 2-410 Date of Next Physician Visit 08/20/24 Date of Surgery (If applicable) 08/20/24 Current Work Status Retired Precautions Weight Bearing Status Full Weight Bearing Therapy Limitations/Systems Review Other Medical Problem Objective Range of Motion AROM - hip extension -28, abduction 15, ER 20, IR 15, flexion 85, knee extension lacking 13 PROM - flexion 113, ER 30, IR 15 Strength L knee 5/5 L hip IR, ER 5/5, abduction 3- /5 in available ROM, hip extension 3-/5 in available ROM Balance & Gait L 2 seconds Posture flexed trunk, flexed knees Assessment Assessment/Impression Pt. has made an excellent recovery from his right TKA but is currently impaired by significant pain and impairment related to left hip OA. Strengthening has been impacted by the pain he is experiencing in his left hip and thigh. He is a great candidate and due to how well he responded to his new knee, I expect this will greatly improve his gait and take some stress off his spine. Post op treatment will consist of therex, manual therapy, gait training with modalities prn. Primary Functional Limitations walking, stairs, pushing, pulling, squatting Plan of Care Rehabilitation Potential Excellent Physical Therapy Goals SHORT TERM GOALS: (4 weeks) 1. Pt. able to complete SLR without lag. 2. Pt. able to don/doff socks/ shoes/pants independently. 3. Pt. able to walk for 200 feet with SPC for community ambulation. 4. Pt. able to independently ascend/descend stairs. GUIDE DOG INSTRUCTOR GOALS: (8 weeks) 1. Pt. able to independently walk 500 feet over grass/field to get to shed. 2. Pt. able to push and pull 50 pounds items. 3. Pt. able to get up from a squat with pain less than 2/10 . Coordination/Communication With Referral Source Treatment Plan/Direct Interventions Gait Training,Ice/Cold/ Vasopneumatic,Joint Mobilization,Manual Therapy, Neuromuscular Re-ed, Therapeutic Exercises Frequency/Duration 1-2x/week 8 weeks Patient Will Be Discharged From Therapy Completion of LTG(s),Skills Plateau,Independent w/HEP, Independently Progressing Evaluation Billing Untimed Code Treatment Minutes 30 Complexity Low Certification Information Initial Certification Date 08/15/24 Ending Certification Date 11/13/24 Provider Signature Required Yes Provider Signature Shows Agreement With POC & Medical Necessity Physician NPI Number Write NPI# Here Physician Comment/Change : Physician Signature & Date Requested Please Sign/Date Here
== END 2024-11-18 16:24 | disposition home or self-care (01) ==
PROVIDERS: PCP Physician Assistant Medical; Visit Provider Orthopaedic Surgery
DX: M16.12 Unilateral primary osteoarthritis, left hip (principal); Z96.642 Presence of left artificial hip joint; Z51.89 Encounter for other specified aftercare
CPT/HCPCS: 97110; 97140; 97161

== ENCOUNTER 2024-10-31 09:39 | Outpatient (CLI) | payer MEDICARE, BC, SELFPAY | END 2024-10-31 09:40 | disposition home or self-care (01) | LOC: LKVREF 09:40 | PROVIDERS: PCP Physician Assistant Medical; Visit Provider Physician Assistant Medical | DX: K86.9 Disease of pancreas, unspecified (principal) | CPT/HCPCS: 86301 ==

== ENCOUNTER 2024-11-12 07:59 | Outpatient (CLI) | payer MEDICARE, BC, SELFPAY | END 2024-11-12 08:00 | disposition home or self-care (01) | LOC: INJ CL 08:01 | PROVIDERS: PCP Physician Assistant Medical; Visit Provider Family Medicine | DX: M54.16 Radiculopathy, lumbar region (principal); M48.062 Spinal stenosis, lumbar region with neurogenic claudication | CPT/HCPCS: 64483; J1100; Q9966 ==

== ENCOUNTER 2024-12-17 08:16 | Outpatient (CLI) | payer MEDICARE, BC, SELFPAY ==
[2024-12-17 08:49] LABS: INR, Point of Care* 1.1 (0.8-1.4)
== END 2024-12-17 08:17 | disposition home or self-care (01) ==
LOC: INJ CL 08:16
PROVIDERS: PCP Physician Assistant Medical; Visit Provider Family Medicine
DX: M54.16 Radiculopathy, lumbar region (principal); M51.369 Other intervertebral disc degeneration, lumbar region without mention of lumbar back pain or lower extremity pain; I48.0 Paroxysmal atrial fibrillation
CPT/HCPCS: 36415; 64483; 85610; J1100; Q9966

== ENCOUNTER 2025-01-23 08:45 | Outpatient (RCR) | payer MEDICARE, BC, SELFPAY | END 2025-04-07 11:23 | disposition home or self-care (01) | PROVIDERS: PCP Physician Assistant Medical; Visit Provider Physician Assistant Surgical | DX: M48.062 Spinal stenosis, lumbar region with neurogenic claudication (principal); Z51.89 Encounter for other specified aftercare | CPT/HCPCS: 86301; 97032; 97110; 97140; 97162 ==

== ENCOUNTER 2025-03-21 09:52 | Outpatient (CLI) | payer MEDICARE, BC, SELFPAY | END 2025-03-21 09:53 | disposition home or self-care (01) | PROVIDERS: PCP Physician Assistant Medical; Visit Provider Physician Assistant Medical | DX: Z01.818 Encounter for other preprocedural examination (principal); Z12.5 Encounter for screening for malignant neoplasm of prostate | CPT/HCPCS: 80053; 82043; 82570; 84443; G0103 ==

== ENCOUNTER 2025-03-28 12:12 | Outpatient (CLI) | payer MEDICARE, BC, SELFPAY ==
--- NOTE | 2025-03-28 13:00 | CRLHL7_ITS ---
For Patients: As a result of the Century Cures Act, medical imaging exams and procedure reports are released immediately into your electronic medical record. You may view this report before your referring provider. If you have questions, please contact your health care provider. Indication: Anemia Technique: CT Abdomen/Pelvis W/ 78CC [id number] intravenous contrast Please note that all CT scans at this facility use dose modulation, iterative reconstruction, and/or weight-based dosing when appropriate to reduce radiation dose to as low as reasonably achievable. Comparison: CT 12/04/2023 Findings: Subpleural nodular density within the left medial costophrenic angle measures 8 millimeters. Scarring within the right medial lung base. Additional scarring in the right middle lobe anteriorly. No pleural effusion. The gallbladder appears normal by CT although there is now mild prominence of the intrahepatic biliary ducts which is new compared to the prior study. Pancreatic parenchyma is normal. Similar appearance of the pancreatic duct. No adrenal nodule. Small simple renal cysts noted bilaterally. Spleen is not enlarged. Atherosclerotic changes. No adenopathy. The prostate is prominent. The bladder is incompletely distended. Chronic sigmoid diverticulosis. No acute inflammation. No bowel obstruction. Normal appendix. 3.5 cm soft tissue density in the left inguinal soft tissues. Multilevel degenerative changes. Postop changes to the lumbar soft tissues. Impression: Chronic sigmoid diverticulosis. New prominence of the intrahepatic biliary tree. Liver MRI recommended for further evaluation. Similar soft tissue density within the left inguinal soft tissues. Likely incidental nodule within the left lung base. Follow-up CT chest in 6 months recommended. Please note that all CT scans at this facility use dose modulation, iterative reconstruction, and/or weight-based dosing when appropriate to reduce radiation dose to as low as reasonably achievable. Dictated by Paul Simons MD @ 03/31/2025 11:53:34 AM (Electronically Signed)
== END 2025-03-28 12:13 | disposition home or self-care (01) ==
LOC: CT 12:13
PROVIDERS: PCP Physician Assistant Medical; Visit Provider Physician Assistant Medical
DX: D64.9 Anemia, unspecified (principal); K57.30 Diverticulosis of large intestine without perforation or abscess without bleeding; R74.8 Abnormal levels of other serum enzymes; R63.4 Abnormal weight loss
CPT/HCPCS: 74177; Q9967

== ENCOUNTER 2025-04-04 11:42 | Outpatient (CLI) | payer MEDICARE, BC, SELFPAY | END 2025-04-04 11:43 | disposition home or self-care (01) | PROVIDERS: PCP Physician Assistant Medical; Visit Provider Physician Assistant Medical | DX: R74.8 Abnormal levels of other serum enzymes (principal); R93.2 Abnormal findings on diagnostic imaging of liver and biliary tract; R97.8 Other abnormal tumor markers | CPT/HCPCS: 80053; 82977; 86301 ==

== ENCOUNTER 2025-04-17 08:49 | Outpatient (CLI) | payer MEDICARE, BC, SELFPAY ==
--- NOTE | 2025-04-17 09:15 | CRLHL7_ITS ---
For Patients: As a result of the Century Cures Act, medical imaging exams and procedure reports are released immediately into your electronic medical record. You may view this report before your referring provider. If you have questions, please contact your health care provider. INDICATION: Abnormal liver function studies. COMPARISON: CT abdomen and pelvis with intravenous contrast March 28, 2025 and January 07, 2013; CT chest with intravenous contrast 07/15/2024. TECHNIQUE: MRI of the abdomen without and with intravenous contrast; precontrast T1 and T2 weighted imaging; T2 haste imaging; diffusion-weighted imaging; in and out of phase imaging; postcontrast imaging including subtraction; 16 cc of dotarem contrast was injected IV ; MRCP; 3D reformations. Findings: Prominent intrahepatic biliary duct system with evidence of multiple areas of stricture and stricture within the common bile duct; rule out primary sclerosing cholangitis. No focal hepatic or splenic pathology. No pancreatic pathology. Splenic vein, superior mesenteric vein and portal vein are unremarkable. Gallbladder is unremarkable. Inferior vena cava and hepatic veins are normal. Prominent pancreatic duct within the head of the pancreas. No pancreatic mass lesions. No adrenal pathology. Kidneys are unremarkable. IMPRESSION: 1. Prominent intrahepatic biliary duct system. Similarly with intravitreal strictures as well stricture involving the common bile duct; rule out primary sclerosing cholangitis; suggest GI consultation and endoscopic ultrasound may be needed. 2. Gallbladder is unremarkable. 3. Noncirrhotic liver morphology without any evidence of portal hypertension. 4. Instrumentation lower lumbar spine. 5. Cortical cyst left kidney. Dictated by Petrona Roman MD @ 04/17/2025 2:10:31 PM (Electronically Signed)
== END 2025-04-17 08:50 | disposition home or self-care (01) ==
LOC: MRI 08:51
PROVIDERS: PCP Physician Assistant Medical; Visit Provider Physician Assistant Medical
DX: R74.8 Abnormal levels of other serum enzymes (principal); N28.1 Cyst of kidney, acquired; R63.4 Abnormal weight loss; R93.2 Abnormal findings on diagnostic imaging of liver and biliary tract
CPT/HCPCS: 74183; A9575

== ENCOUNTER 2025-04-18 09:20 | Outpatient (CLI) | payer MEDICARE, BC, SELFPAY | END 2025-04-18 09:21 | disposition home or self-care (01) | LOC: NFLDREF 04-23 06:35 | PROVIDERS: PCP Physician Assistant Medical; Referring Provider Physician Assistant Medical; Visit Provider Physician Assistant Medical | DX: R74.8 Abnormal levels of other serum enzymes (principal); R93.2 Abnormal findings on diagnostic imaging of liver and biliary tract; R97.8 Other abnormal tumor markers | CPT/HCPCS: 80053 ==

== ENCOUNTER 2025-04-29 11:30 | Outpatient (CLI) | payer MEDICARE, BC, SELFPAY | END 2025-04-29 11:31 | disposition home or self-care (01) | PROVIDERS: PCP Physician Assistant Medical; Visit Provider Family Medicine | DX: R74.8 Abnormal levels of other serum enzymes (principal); Z01.818 Encounter for other preprocedural examination; E11.65 Type 2 diabetes mellitus with hyperglycemia | CPT/HCPCS: 80076; 84681 ==

== ENCOUNTER 2025-04-29 15:40 | Outpatient (CLI) | payer MEDICARE, BC, SELFPAY | END 2025-04-29 15:41 | disposition home or self-care (01) | LOC: NPINS 15:45 | PROVIDERS: PCP Physician Assistant Medical; Visit Provider Internal Medicine Gastroenterology | DX: R79.89 Other specified abnormal findings of blood chemistry (principal); R74.8 Abnormal levels of other serum enzymes; Z01.818 Encounter for other preprocedural examination; E11.65 Type 2 diabetes mellitus with hyperglycemia | CPT/HCPCS: 83690 ==

== ENCOUNTER 2025-05-03 16:29 | Emergency (ER) | payer MEDICARE, BC, SELFPAY ==
--- OUTSIDE RECORDS SUMMARY | 2025-05-02 03:01 | XMS_ITS | Continuity of Care Document ---
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 Role Phone Sourav Mac MD Unavailable Unavailable Allergies, Adverse Reactions, Alerts Substance Reaction Status Criticality No Known Allergies Active No Inform ation Medications Medication Instructions Dosage Effective Dates (start - stop) Status Comments escitalopram 5 mg tablet take 1 tablet by oral route every day 5 MG - Active acetaminophen 325 mg capsule - Active amlodipine 10 mg tablet take 1 tablet by oral route every day 10 MG - Active atorvastatin 40 mg tablet take 1 tablet by oral route every day 40 MG - Active ferrous sulfate 325 mg (65 mg iron) tablet,delayed release take 1 tablet by oral route every morning 1 tablet - Active gabapentin ER 600 mg tablet,extended release 24 hr take 3 tablet by oral route every evening 1800 MG - Active glipizide 10 mg tablet take 1 tablet by oral route every day before a meal 10 MG - Active Jardiance 10 mg tablet take 1 tablet by oral route every day in the morning 10 MG - Active losartan 100 mg tablet take 1 tablet by oral route every day 100 MG - Active magnesium 250 mg tablet take 1 tablet by oral route every day 1 tablet Dec-19-2024 - Active metformin 1,000 mg tablet take 1 tablet by oral route 2 times every day with morning and evening meals 1000 MG - Active metoprolol succinate ER 25 mg tablet,extended release 24 hr take 0.5 tablet by oral route 2 times every day 12.5 MG - Active omeprazole 20 mg tablet,delayed release take 1 tablet by oral route every day 1 tablet - Active Potassium unknown - Active warfarin 7.5 mg tablet take 1 tablet by oral route every day 7.5 MG - Active tamsulosin 0.4 mg capsule take 1 capsule by oral route every day 1/2 hour following the same meal each day 0.4 MG - Active Procedures Procedure Date Established Level 4 Moderate Established Level 3 Offic/outpt E&m Estab Mod-hi 2 Complex e/m visit add on Ugi Endo; W/us Guid Asp/bx Advance Directives Directive Yes / No Effective Date File Name No Information Encounters Encounter Description Practice Location Reason(s) For Visit Diagnoses Date Provider Providers Copied on Encounter [facility], [address] [address], [place], [place], [id number], [place] tel:[phone] [facility] Abnormal LFTs 5 Estefania Benjamin. [address] [place] [address], [address], [id number] , [place]. tel:[phone] Established Level 4 Moderate [facility], [address] [address], [place], [place], [address], [place] tel:[phone] [facility] GI Symptoms or Concerns (chief complaint) Abnormal LFTs 5 Estefania Benjamin. [address] [facility], [address], [id number] , [place]. tel:[phone] Referring Provider: Emely JIM, [address] [place], [address]. tel:[phone] [facility], [address] [address], [place], [place], [id number], [place] tel:[phone] [facility] No Information 5 Estefania Benjamin. [address] [facility], [address], [place], [place], [address] , [place]. tel:[phone] Established Level 3 [facility], [address] [address], [place], [place], [id number], [place] tel:[phone] [facility] GI Symptoms or Concerns (chief complaint) Abnormal abdominal CT scan 4 Estefania Benjamin. [address] [facility], [address], [place], [place], [address] , [place]. [phone] Referring Provider: Referral Self, USE FOR SELF REFERRALS. [facility], [address] [address], [place], [place], [address], [place] tel:[phone] [facility] GI Symptoms or Concerns (chief complaint) No Information 4 Estefania Benjamin. [address] [facility], [address], [place], [place], [address] , [place]. tel:[phone] [facility], [address] [address], [place], [place], [address], [place] tel:[phone] [facility] No Information 4 Solis Osuna. [address] [facility], [address], [place], [place], [address] , [place]. tel:[phone] Offic/outpt E&m Estab Mod-hi 2 [facility], [address] [address], [place], [place], [address], [place] tel:[phone] [facility] GI Symptoms or Concerns (chief complaint) Pancreas cyst 4 Estefania Benjamin. [address] [facility], [address], [place], [place], [address] , [place]. tel:[phone] Referring Provider: Sourav Mac MD, [address] [facility] [address], [place], [address] . tel:[phone] [facility], [address] [address], [place], [place], [address], [place] tel:[phone] [facility] Pancreas cyst Sep- 4 Estefania Benjamin. [address] [facility], [address], [place], [place], [address] , [place]. tel: [phone] [facility], [address] [address], [place], [place], [address], [place] tel:[phone] [facility] No Information Sep-3 4 Estefania Benjamin. [address] [facility], [address], [facility] [place], [address] , [place]. tel: [phone] Referring Provider: Sourav Mac MD, [address] [facility] [address], [place], [address] . tel:[phone] [facility], [address] [address], [place], [place], [address], [place] tel:[phone] [facility] No Information Sep-0 4 Solis Osuna. [address] [facility], [address], [place], [place], [address] , [place]. tel: [phone] Family History Family Member Type Diagnosis Age At Onset No Information Immunizations Vaccine Date Status Comments Influenza, high-dose, split virus, trivalent, injectable, preservative free administered Note: [facility] bi-direct ional interface ; Source: Other Registry SARS-COV-2 (COVID-19) vaccin e, mRNA, spike protein, LNP, preservative free, ritika-sucrose, 30 mcg/0.3 mL dose administered Note: [facility] bi-direct ional interface ; Source: Other Registry Influenza, high-dose, split virus, trivalent, injectable, preservative free administered Note: [facility] bi-direct ional interface ; Source: Other Registry SARS-COV-2 (COVID-19) vaccin e, mRNA, spike protein, LNP, preservative free, ritika-sucrose, 30 mcg/0.3 mL dose administered Note: [facility] bi-direct ional interface ; Source: Other Registry tetanus toxoid, reduced diphtheria toxoid, and acellular pertussis vaccine, adsorbed administered Note: [facility] b i-directional interface ; Source: Other Registry Influenza, high-dose, split virus, quadrivalent, injectable, preservative free administered Note: [facility] bi-direct ional interface ; Source: Other Registry influenza, high-dose seasona l, quadrivalent, 0.7mL dose, preservative free administered Note: [facility] bi-direct ional interface ; Source: Other Registry Pneumococcal conjugate vacci ne 20-valent (PCV20), polysaccharide [id number] conjugate, adjuvant, preservative free administered Note: [facility] bi-direct ional interface ; Source: Other Registry SARS-COV-2 (COVID-19) vaccin e, mRNA, spike protein, LNP, bivalent, preservative free, 30 mcg/0.3 mL dose, ritika-sucrose formulation administered Note: [facility] bi-direct ional interface ; Source: Other Registry Influenza, adjuvanted, inactivated, quadrivalent, injectable, preservative free administered Note: [facility] bi-directional interface ; Source: Other Registry influenza, seasonal [...] bi -directional interface ; Source: Other Registry Influenza, adjuvanted, inactivated, quadrivalent, injectable, preservative free administered Note: [facility] bi-directional interface ; Source: Other Registry influenza, seasonal [...] bi -directional interface ; Source: Other Registry Influenza, adjuvanted, inactivated, quadrivalent, injectable, preservative free administered Note: [facility] bi-directional interface ; Source: Other Registry influenza, seasonal [...] i-directional interface ; Source: Other Registry Influenza, split virus, trivalent, injectable, preservative free administered Note: [facility] bi-direct ional interface ; Source: Other Registry Influenza, seasonal, injecta ble, preservative free administered Note: [facility] bi-direct ional interface ; Source: Other Registry Influenza, split virus, trivalent, injectable, contains preservative administered Note: [facility] bi-direct ional interface ; Source: Other Registry Influenza, seasonal, injectable administe red Note: [facility] bi- directional interface ; Source: Other Registry Influenza, split virus, trivalent, injectable, contains preservative administered Note: [facility] bi-direct ional interface ; Source: Other Registry Influenza, seasonal, injectable administe red Note: [facility] bi- directional interface ; Source: Other Registry Twinrix administered Note: [facility] bi-d irectional interface ; Source: Other Registry Influenza, split virus, trivalent, injectable, contains preservative administered Note: [facility] bi-direct ional interface ; Source: Other Registry Pneumovax 23 administered Note: [facility] bi-d irectional interface ; Source: Other Registry Influenza, seasonal, injectable administe red Note: [facility] bi- directional interface ; Source: Other Registry Payers Payer name Insurance type Covered alliance party ID Authoriza tion(s) Medicare NGS MB [id number] [facility] Medicare Supplement BL [id number] Social History Type Description Quantity Date Captured Comments Sex Male Smoking Status No Information Chief Complaint And Reason For Visit No Information Reason For Referral Reason For Referral No Information Plan Of Treatment Date Type Action Status Referral Ordered: CT Abdomen WITHOUT And WITH Contrast Appointment date/timeframe: 05/08/2024 ordered History Of Present Illness Encounter Date Complaint History Of Prese nt Illness GI Symptoms or Concerns Tobi nichole s a pleasant 70-year-old gentleman who I saw about 1 year ago or so after he was sent to me for the incidental finding of a pancreas cyst on cross sectional imaging. At the time, I performed an endoscopic ultrasound, which did reveal chronic pancreatitis changes as well as a cyst that I sampled that was most consistent with a pseudocyst. He remains asymptomatic and follow up imaging revealed that the cyst had resolved. The etiology of the cyst and the pancreatitis remain unclear as he has no history of acute pancreatitis or alcohol abuse. He has now been referred back to me from his doctor after blood work from a routine physical reveals new elevation in his liver tests. His daughter is with him today and tells me his alk phos is as high as 900 and his AST, ALT are in the 400s. His bilirubin is around 2. 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 He remains asymptomatic. No abdominal pain. No pruritus. N GI Symptoms or Concerns Tobi nichole s a pleasant 69-year-old gentleman who was first sent to me back in September after cross-sectional imaging incidentally revealed a pancreas cyst. I did perform an endoscopic ultrasound shortly thereafter, and images did reveal a unilocular 5 cm cyst off of the tail of the pancreas, and I thought it was most consistent with pseudocyst. Fine needle aspiration revealed a very low CEA level at 5.3, cytology was unremarkable. Amylase was very high. Since then, he has had a CAT scan and MRI, which have revealed that the cyst has been completely gone. He continues to have absolutely no symptoms. He has no abdominal pain. No diarrhea. No nausea or vomiting. He has no personal history of pancreas problems or family history of pancreas problems. GI Symptoms or Concerns GI Symptoms or Concerns Functional Status Date Functional Assessmen t No Information Instructions Date Instruction Additional Infor ramsey At this point, I wou ld like him to go ahead and have endoscopic ultrasound as well as an ERCP to better delineate its bile duct strictures and sample them. I will also go ahead and send off for some repeat blood work at this time. He asked good questions and has a good understanding of the issues at hand. Related to Abnormal LFTs At this point, I fee l that no further follow-up is necessary. I have asked him to call me should he have any abdominal pain or other concerns that may be related to his pancreatic cyst. He asked good questions and has a good understanding of issues at hand . Related to Abnormal abdominal CT scan Assessments Type Assessment Date assessment Abnormal LFTs Patient Care Teams Name Effective Dates (start - stop) Status Members No Information
--- OUTSIDE RECORDS SUMMARY | 2025-05-02 03:01 | XMS_ITS | Continuity of Care Document ---
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 [address] [place] [address], [address], [id number] , [place]. tel:[phone] Established Level 4 Moderate [facility], [address] [address], [employer] [place], [place], [address], [place] tel:[phone] [facility] GI Symptoms or Concerns (chief complaint) Abnormal LFTs 5 Estefania Benjamin. [address] [facility], [address], [id number] , [place]. tel:[phone] Referring Provider: Emely JIM, [address] [place], [address]. tel:[phone] [facility], [address] [address], [employer], [place], [address], [place] tel:[phone] [facility] No Information 5 Estefania Benjamin. [address] [facility], [address], [place], [place], [address] , [place]. tel:[phone] Established Level 3 [facility], [address] [address], [employer], [place], [address], [place] tel:[phone] [facility] GI Symptoms or Concerns (chief complaint) Abnormal abdominal CT scan 4 Estefania Benjamin. [address] [facility], [address], [place], [place], [address] , [place]. [phone] Referring Provider: Referral Self, USE FOR SELF REFERRALS. [facility], [address] [address], [employer], [place], [address], [place] tel:[phone] [facility] GI Symptoms or Concerns (chief complaint) No Information 4 Estefania Benjamin. [address] [facility], [address], [place], [place], [address] , [place]. tel: [phone] [facility], [address] [address], [employer], [place], [address], [place] tel:[phone] [facility] No Information 4 Solis Osuna. [address] [facility], [address], [place], [place], [address] , [place]. tel:[phone] Offic/outpt E&m Estab Mod-hi 2 [facility], [address] [address], [employer], [place], [address], [place] tel:[phone] [facility] GI Symptoms or Concerns (chief complaint) Pancreas cyst 4 Estefania Benjamin. [address] [facility], [address], [place], [place], [address] , [place]. tel:[phone] Referring Provider: Sourav Mac MD, [address] [facility] [address], [place], [address] . tel:[phone] [facility], [address] [address], [employer], [id number], [place] tel:[phone] [facility] Pancreas cyst Sep- 4 Estefania Benjamin. [address] [facility], [address], [place], [place], [address] , [place]. tel: [phone] [facility], [address] [address], [employer], [place], [address], [place] tel:[phone] [facility] No Information Sep-3 4 Estefania Benjamin. [address] [facility], [address], [facility] [place], [address] , [place]. tel: [phone] Referring Provider: Sourav Mac MD, [address] [facility] [address], [place], [address] . tel:[phone] [facility], [address] [address], [employer], [place], [address], [place] tel:[phone] [facility] No Information Sep-0 4 Solis Osuna. [address] [facility], [address], [place], [place], [address] , [place]. tel: [phone] Family History Family Member Type Diagnosis Age [...] Pneumococcal conjugate vacci ne 20-valent (PCV20), polysaccharide [id number] conjugate, adjuvant, preservative free administered Note: [facility] [...] Registry Payers Payer name Insurance type Covered democrat ID Authoriza tion(s) Medicare NGS MB [id number] [facility] Medicare Supplement BL [id number] Social History Type Description Quantity Date Captured [...]
[2025-05-03] VITALS (12 sets, daily range): BP systolic 95–170; BP diastolic 64–80; PULSE 75–99; RESP 18; TEMP 37.7–39.1; O2SAT 89–97; BMI 24.1
--- OUTSIDE RECORDS SUMMARY | 2025-05-03 16:31 | XMS_ITS | Clinical Summary ---
Author Organization [employer] [facility] [employer] [facility] Address [facility] [place] [address] Care Team Providers Care Customer Operations Associate Name Role Phone Emely Henson PA-C Primary Care Provider + [phone] Paul Soler MD Unavailable [phone] Allergies No known active allergies Medications (u) ACCUCHECK COMFORT CURVE STRIPS use as directed 100 1yr 08/11/19 05 Active nitroglycerin (NITROSTAT) 0.4 mg sublingual tabletIndication s:High coronary artery calcium score Place 2 tablets under the tongue every 5 minutes if needed for Chest Pain or Other (Specify) (up to 3 doses). 1 Bottle 1 10/06/19 16 Active Additional Information Patient not taking.Informant: Patient's Recall, Reported on 05/01/2025 CPAPIndications: PAOLO (obstructive sleep apnea) CPAP machine [...] Frequency of use: Daily 1 Device 11 07/01/19 21 Active albuterol HFA (ProAir HFA) 90 mcg/actuation inhalerIndicatio ns:Panlobular emphysema (HC) Inhale 1-2 Puffs by mouth every 6 hours if needed for Shortness of Breath 2nd choice or Wheezing 1st choice. 1 Each 1 10/06/19 22 Active albuterol-ipratr opium (DUONEB) (2.5-0.5 mg) in 3 mL NEBULIZATION solutionIndicati ons:Panlobular emphysema (HC) Inhale 3 mL via a nebulizer every 6 hours if needed for Shortness of Breath 2nd choice or Wheezing 1st choice. Use 2-4 times per day. 75 mL 05/10/20 22 Active losartan (COZAAR) 100 mg tabletIndication s:Essential hypertension Take 1 Tablet (100 mg) by mouth once daily. 90 Tablet 11/17/19 23 Active warfarin (COUMADIN) 7.5 mg tabletIndication s:Paroxysmal atrial fibrillation (HC),Anticoagula tion monitoring, INR range 2-3 Take by mouth 3.75 mg every Mon, Mon, Mon; 7.5 mg all other days in the evening OR as directed 12/13/19 23 Active gabapentin (NEURONTIN) 600 mg tabletIndication s:Diabetic peripheral neuropathy (HC),Other insomnia Take 1 Tablet (600 mg) by mouth at bedtime 90 Tablet 1 12/19/19 23 Active amLODIPine (NORVASC) 10 mg tabletIndication s:Essential hypertension TAKE ONE TABLET BY MOUTH DAILY 90 Tablet 01/02/20 23 Active magnesium 250 mg tab Take 250 mg by mouth once daily. Active diphenhydrAMINE (BenadryL) 25 mg capsule Take 25 mg by mouth at bedtime if needed. Active POTASSIUM-99 ORAL Take 1 Tablet by mouth once daily. Active metFORMIN (GLUCOPHAGE) 1,000 mg tabletIndication s:Type 2 diabetes mellitus without complication, without long-term current use of insulin (HC) Take 1 Tablet (1,000 mg) by mouth two times daily with meals. 60 Tablet 07/01/19 24 Active acetaminophen (TYLENOL EXTRA STRGTH) 500 mg tablet Take 1,000 mg by mouth once daily in the evening. Max acetaminophen dose: 4000mg in 24 hrs. Active triamcinolone 0.1 % ointment Apply topically to affected area(s) 3 times daily if needed. Active metoprolol tartrate (LOPRESSOR) 25 mg tabletIndication s:Paroxysmal atrial fibrillation (HC) Take 0.5 Tablets (12.5 mg) by mouth two times daily. 90 Tablet 3 07/28/19 24 Active tamsulosin (FLOMAX) 0.4 mg capsuleIndicatio ns:Lower urinary tract symptoms (LUTS) Take 1 Capsule (0.4 mg) by mouth once daily after a meal. 90 Capsule 12/13/19 24 Active Jardiance 10 mg tablet Take 10 mg by mouth once daily. 11/26/19 24 Active ferrous sulfate, 65 mg elemental, 324 mg (65 mg iron) Delayed-Release tablet Take 324 mg by mouth once daily with a meal. 11/23/19 24 Active atorvastatin (LIPITOR) 40 mg tabletIndication s:Type 2 diabetes mellitus without complication, without long-term current use of insulin (HC),Dyslipidemi a TAKE ONE TABLET BY MOUTH AT BEDTIME 90 Tablet 03/05/20 24 Active insulin glargine,hum.rec .anlog (LANTUS U-100 INSULIN SUBQ) Inject 10 units subcutaneous once daily. Active glipiZIDE extended-release (GLUCOTROL XL) 10 mg Extended-Release tablet Take 1 Tablet by mouth once daily. 11/28/19 25 Active escitalopram oxalate (Lexapro) 5 mg tablet Take 5 mg by mouth once daily. Active Dulera 200-5 mcg/actuation inhaler Inhale 2 Puffs by mouth two times daily. 11/01/19 25 Active omeprazole (PRILOSEC) 20 mg Delayed-Release capsule Take 20 mg by mouth once daily before a meal. 12/12/19 25 Active ciprofloxacin (CIPRO) 500 mg tabletIndication s:Abnormal liver enzymes Take 1 Tablet (500 mg) by mouth two times daily before meals. 154 Tablet 05/02/20 25 Active citalopram (CELEXA) 20 mg tablet Take 20 mg by mouth every morning. 03/30/20 23 025 Discontin ued(*Cherry ent states no longer taking) Active Problems Problem Noted Date Diagnosed Date Groin hematoma 07/06/2023 Severe aortic stenosis 04/20/2023 Coronary artery disease invo lving hoopa coronary artery of hoopa heart without angina pectoris 04/20/2023 Chronic systolic congestive heart failure 2022 Stenosis of cervical spine 03/09/2022 Overview (03/09/2022): surgery 03/04/22 Pulmonary emphysema 09/10/2020 Bicuspid aortic valve 03/24/2020 Obstructive sleep apnea 11/20/2018 Psoriasis 08/11/2015 Type 2 diabetes mellitus wit hout complication, without long-term current use of insulin 11/01/2012 Overview (11/01/2012): Dx 1996 Follow up surgery. 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 12/25/2008 11/20/2010 Overview (12/25/2008): INR Goal Range: 2.0 - 3.0 Dyslipidemia 10/22/2008 02/20/2010 Chest pain 10/22/2008 05/25/2022 Sleep apnea syndrome 10/22/2008 019 Overview (04/30/2012): Dx ~1997 On CPAP HYPERTENSION, ESSENTIAL NOS [...] Encounters Date Type Department Care Team Description 05/02/2025 9:11 AM PACKING AND STAMPING MACHINE OPERATOR Anesthesia Event [facility] [address] [place] [id number] Mike Calderon MD 05/02/2025 9:10 AM PACKING AND STAMPING MACHINE OPERATOR - 05/02/2025 10:40 AM PACKING AND STAMPING MACHINE OPERATOR Surgery [facility] [address] [place] [id number] Sourav Mac MD ENDOSCOPIC ULTRASOUND UPPER WITH FNA 05/02/2025 7:32 AM PACKING AND STAMPING MACHINE OPERATOR - 05/02/2025 12:56 PM PACKING AND STAMPING MACHINE OPERATOR Hospital Encounter [facility] [address] [place] [id number] Sourav Mac MD Abnormal liver enzymes Discharge Disposition: Home Self Care 05/01/2025 Travel from Last 3 Months Immunizations Immunization Administration Dates Next Due COVID-19 vaccine (Moderna [...] 2 Heart Disease Father d 85 yo [place] aft er hip fracture Arthritis Mother Heart [...] Given: No Alcohol Use Standard Drinks/Week Comments Not Currently 0 (1 standard drink = 0.6 oz pur e alcohol) Rarely a beer PHQ-2 Answer Date Recorded PHQ-2 TOTAL SCORE 0 10/23/2023 Social Connections Answer Date Recorded Do you often feel lonely or isolated from those around you? 0 07/06/2023 Financial Resource Strain Answer Date R ecorded Difficulty of Paying Living Expenses 3 06/29/2023 Difficulty of Paying Living Expenses Not on file 06/29/2023 Food Insecurity Answer Date Recorded Do you worry your food will run out before you are able to buy more? 1 07/06/2023 Transportation Needs Answer Date Record ed Does lack of transportation keep you from medica l appointments? 1 07/06/2023 Does lack of transportation keep you from work, meetings or getting things that you need? 1 07/06/2023 Housing Stability Answer Date Recorded What is your housing situation today? 1 07/06/2023 Interpersonal Safety Answer Date Record ed Are you being hit, kicked, p ushed or yelled at (see row info)? No 12/12/2023 Interpersonal Safety Abuse 12 - 18 Not on file 12/12/2023 Interpersonal Safety Ambulatory Vulnerability No t on file 12/12/2023 Utilities Answer Date Recorded Do you have trouble paying f or utilities (for example, heat, electricity, water, phone)? 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 Not on file Not on file Not on file Obstetrics History Last Filed Vital Signs Vital Sign Reading Time Taken Comments Blood Pressure 148/66 05/02/2025 12:20 PM PACKING AND STAMPING MACHINE OPERATOR Pulse 70 05/02/2025 12:20 PM PACKING AND STAMPING MACHINE OPERATOR Temperature 36.1 C (97 F) 05/02/2025 10:36 AM PACKING AND STAMPING MACHINE OPERATOR Respiratory Rate 18 05/02/2025 12:20 PM PACKING AND STAMPING MACHINE OPERATOR Oxygen Saturation 93% 05/02/2025 12:20 PM PACKING AND STAMPING MACHINE OPERATOR Inhaled Oxygen Concentration - - Weight 70 kg (154 lb 5.2 oz) 05/01/2025 11:11 AM PACKING AND STAMPING MACHINE OPERATOR Height 168 cm (5' 6.14) 05/01/2025 11:11 AM PACKING AND STAMPING MACHINE OPERATOR Body Mass Index 24.8 05/01/2025 11:11 AM PACKING AND STAMPING MACHINE OPERATOR Plan of Treatment Health Maintenance Due Date Last Done Comments RSV vaccine for adults or (1 - Risk 50-74 years 1-dose series) 2005 Hepatitis B series for 19+ Completed 11/13, 05/15/2014, 12/10/2013, Additional history exists Goals Goal Patient Goal Type Associated Problems Recent Progress Patient-Stated? Author BLOOD PRESSURE - MAINTAINS BP less than 140/90 Blood Pressure No Arya Stone MD Medical Devices Implanted Type Area Hose Handler Device Identifier Shelf Expiration Date Model / Serial / Lot [id number] e Canclls Crushed 60cc [] Implanted:Qty: 1 on 08/22/2006 at [facility] Explanted:at [facility] (Quantity not on file) Spine Allosource 05/17/2011 [id number] / [id number] / [id number] e Canclls Crushed 30cc [[id number]] Implanted:Qty: 1 on 08/22/2006 at [facility] Explanted:at [facility] (Quantity not on file) Spine [employer]osource 11/16/2010 [id number]# / [id number] / Vesna Dayanara [id number] - [id number] Implanted:Qty: 6 on 08/22/2006 at [facility] Spine HOWMEDICA [id number] / / Screw Polyaxial 6.5x45mm - [id number] Implanted:Qty: 6 on 08/22/2006 at [facility] Spine [employer] [id number] / / Marin Dayanara Rad 70mm 108mm Radius - [id number] Implanted:Qty: 2 on 08/22/2006 at [facility] Spine [employer]MEDICA [id number] / / Wedge Tag Acufex 3.7mm - [id number] Implanted:Qty: 3 on 08/25/2011 at [facility] Left: Shoulder [employer] [id number]# / / [id number] Screw Cerv Ant 4x15mm [place] Translational Va Slf Drill - [id number] Implanted:Qty: 3 on 03/04/2022 by Donald Alba MD at [facility] N/A: Spine Medtronic Spine/Ortho [id number] / / Plate Cerv 1lvl 25mm [place] Vision Elite Ant - [id number] Implanted:Qty: 1 on 03/04/2022 by Donald Alba MD at [facility] N/A: Spine Medtronic Spine/Ortho [id number] / / [id number] e Matrix 1cc Steve Plus Paste Dbm Implanted:Qty: 1 on 03/04/2022 by Donald Alba MD at [facility] Explanted:at [facility] (Quantity not on file) N/A: Spine Medtronic Spine/Ortho 10/12/2023 [id number] / [id number] / [id number] Spinal Graft Block Robert Implanted:Qty: 1 on 03/04/2022 by Donald Alba MD at [facility] Explanted:at [facility] (Quantity not on file) N/A: Spine Medtronic Spine/Ortho 02/24/2024 [id number] / [id number] / Screw Cerv Ant 4x13mm Red Oak Translational Va Slf Drill - [id number] Implanted:Qty: 1 on 03/04/2022 by Donald Alba MD at [facility] N/A: Spine Medtronic Spine/Ortho [id number] / / Tissue Pericardium 0.8x8cm Photofix Bovine - [id number] Implanted:Qty: 1 on 06/29/2023 by Ahmet Levy MD at [facility] Left: Groin [employer]ife Inc 02/03/2025 [id number] / / [id number] Description:CryoLife PhotoFi x Decellularized Bovine Pericardium 0.8cm x 8cm; Lot Number [id number]; Reference Number [id number]; Implanted to the left groin by Dr. Levy on 06/29/2023 Procedures Procedure Name Priority Date/Time Associated Diagnosis Comments XR ERCP BILIARY ONLY Routine 05/02/2025 10:31 AM PACKING AND STAMPING MACHINE OPERATOR Abnormal liver enzymes PATH NON PAINTER DRUM CYTOLOGY Today 05/02/2025 10:12 AM PACKING AND STAMPING MACHINE OPERATOR ENDOTRACHEAL TUBE Routine 05/02/2025 9:2 3 AM PACKING AND STAMPING MACHINE OPERATOR ENDOTRACHEAL TUBE Routine 05/02/2025 9:2 3 AM PACKING AND STAMPING MACHINE OPERATOR ENDOTRACHEAL TUBE Routine 05/02/2025 9:2 3 AM PACKING AND STAMPING MACHINE OPERATOR ENDOSCOPY 05/02/2025 9:12 AM PACKING AND STAMPING MACHINE OPERATOR ENDOSCOPY 05/02/2025 9:04 AM PACKING AND STAMPING MACHINE OPERATOR GLUCOSE METER Timed 05/02/2025 8:35 AM PACKING AND STAMPING MACHINE OPERATOR SCAN CORRESP-LABORATORY RESULTS 04/30/2025 10:10 AM PACKING AND STAMPING MACHINE OPERATOR from Last 3 Months Results * XR ERCP BILIARY ONLY (05/02/2025 10:31 AM PACKING AND STAMPING MACHINE OPERATOR) Anatomical Region Laterality Modality GALLBLADDER, PANCREAS, LIVER Oth er Narrative 05/02/2025 10:32 AM PACKING AND STAMPING MACHINE OPERATOR 7 minutes 35 seconds fluoroscopy time was provided. See operative/procedure report for further information. Sourav Mac MD FLUOROSCOPY Final Result * PATH NON PAINTER DRUM CYTOLOGY (05/02/2025 10:12 AM PACKING AND STAMPING MACHINE OPERATOR) Case Report Medical Cytology Report Case: [id number] Authorizing Provider: Sourav Mac, Collected: 05/02/2025 1012 MD Ordering Location: [facility] Received: 05/02/2025 1041 [facility] Pathologist: Emely Pina MD Specimen: Bile Duct Brushing 05/02/2025 3:43 PM PACKING AND STAMPING MACHINE OPERATOR [facility]AL LABORAT[facility] Final Diagnosis A) BILE DUCT, BRUSHIN. Negative for malignancy 2. Reactive biliary epithelium 05/02/2025 3:43 PM PACKING AND STAMPING MACHINE OPERATOR [facility] at 1543 PACKING AND STAMPING MACHINE OPERATOR Clinical Information Elevated liver enzymes. At endoscopy, the major papilla appeared congested, multiple segmental biliary strictures, impression PSC versus autoimmune cholangiopathy. 05/02/2025 3:43 PM PACKING AND STAMPING MACHINE OPERATOR [facility] Gross Description A) SOURCE: Bile duct brushing The specimen consists of a brush in 6 cc of fluid from which the following is prepared: -1 Papanicolaou stained ThinPrep slide 05/02/2025 3:43 PM PACKING AND STAMPING MACHINE OPERATOR [facility] ENTRMD LABORATORY Microscopic Description Specimen adequacy: Adequate for interpretation. All slides were reviewed. The microscopic appearance substantiates the diagnosis. 05/02/2025 3:43 PM PACKING AND STAMPING MACHINE OPERATOR [facility] Additional Information Cytology is screened at [facility] [place] [facility] - [address], [place] [address] and [facility] - [address], [place] [address] and [facility] - [address] [place] [address] Interpreted at [facility], [place] [facility] - [address], [place] [address] 05/02/2025 3:43 PM PACKING AND STAMPING MACHINE OPERATOR [facility]AL LAB[facility]ATORY Brushing (Bile Duct Brushing) 05/02/2025 10:12 AM PACKING AND STAMPING MACHINE OPERATOR 05/02/2025 10:41 AM PACKING AND STAMPING MACHINE OPERATOR Sourav Mac MD PATHOLOGY/CYTOLOGY Fin al Result [facility] [address] [place] [address], [place] * HCHG TUBE PR1, HCHG INSTRUMENT DISP PR10, HCHG STYLET PR1 (05/02/2025 9:23 AM PACKING AND STAMPING MACHINE OPERATOR) Narrative Rachael Carias CRNA - 05/02/2025 9:23 AM PACKING AND STAMPING MACHINE OPERATOR Rachael Carias CRNA 05/02/2025 9:25 AM Procedure: ETT Patient location during procedure: OR ETT Properties Mask Ventilation: easy Final Technique: video laryngoscopy Type: straight Location: oral Tube Size: 7.5 mm Stylet: yes Laryngoscope Blade: Glidescope Blade Size: 4 Cormack-Lehane Grade View: 1 Insertion Attempts: 1 Placement Verification: auscultation, end tidal CO2 and symmetrical chest wall movement Assessment: pharynx clear, atraumatic and dentition unchanged Secured at: 23 Measured From: lips Difficulty: 0 (not difficult) us Mike Calderon MD ANESTHESIA PX NOTE O RDERABLES Final Result * ENDOSCOPY (05/02/2025 9:12 AM PACKING AND STAMPING MACHINE OPERATOR) 05/02/2025 9:12 AM PACKING AND STAMPING MACHINE OPERATOR Narrative Transcriptions Sourav Mac MD - 05/02/2025 10:51 AM [facility] Patient Name: Tobi Ugarte Procedure Date: 05/02/2025 Gender: Male Date of : 1955 Admit Type: Ambulatory Procedure: ERCP Proceduralist: Sourav Mac MD - [facility] Indications/Pre-Op Diagnosis: Elevated liver enzymes Medications: General Anesthesia Procedure Description: Risk of bleeding, infection, perforation, pancreatitis, need for surgery, remote chance of and alternatives were discussed, andthe patient gave informed consent. The endoscope [id number] was passed through the mouth, and advanced to the duodenum and used to inject contrast into the bileduct. The ERCP was accomplished without difficulty. The patient toleratedthe procedure well. Complications: No immediate complications. Estimated Blood Loss & Specimen: Estimated blood loss: none. Specimen collected: Yes and sent to Laboratory Findings: The scope was passed under direct vision through the upper GI tract.The entire examined stomach was normal. The examined duodenum was normal. The major papilla was congested. The bile duct was deeply cannulated with the short-nosed traction sphincterotome and guidewire. Contrastwas injected. I personally interpreted the bile duct images. There wasbrisk flow of contrast through the ducts. Image quality was excellent. Contrast extended to the hepatic ducts. The left and right hepaticducts and all intrahepatic branches contained multiple segmental stenoses.The common bile duct contained two moderate stenoses 5 mm in length ( onein th distal bile duct and one in the proximal bile duct. Biliary sphincterotomy was made with a traction (standard) sphincterotome.There was no post-sphincterotomy bleeding. The biliary tree was swept witha 9 mm balloon starting at the bifurcation. Nothing was found. The lower third of the main bile duct was biopsied with a cold forceps for histology. Cells for cytology were obtained by brushing in the entire main bile duct. The entire main bile duct was successfully dilatedwith a 6-7-8 mm balloon (to a maximum balloon size of 6 mm) dilator. Impressions/Post-Op Diagnosis: - The major papilla appeared congested. - Multiple segmental biliary strictures were found in the left andright hepatic ducts and all intrahepatic branches as well as two smooth strictures in the common bile duct. The strictures wereindeterminate. PSC vs autoimmune cholangiopathy - A biliary sphincterotomy was performed. - The biliary tree was swept and nothing was found. - Biopsy was performed in the lower third of the main duct. - Cells for cytology obtained in the main bile duct. - The entire main bile duct was successfully dilated. Recommendation: - Await cytology results and await path results. If tests do notreveal neoplastic process will plan on course of steroids. - Check liver enzymes (AST, ALT, alkaline phosphatase, bilirubin). Sourav Mac MD 05/02/2025 10:51:30 AM This report has been signed electronically. Note Initiated On: 05/02/2025 9:12 AM Sourav Mac MD PROCEDURE ORD Final Result * ENDOSCOPY (05/02/2025 9:04 AM PACKING AND STAMPING MACHINE OPERATOR) 05/02/2025 9:04 AM PACKING AND STAMPING MACHINE OPERATOR Narrative Transcriptions Sourav Mac MD - 05/02/2025 10:45 AM CST [facility] Patient Name: Tobi Ugarte Procedure Date: 05/02/2025 Gender: Male Date of : 1955 Admit Type: Ambulatory Procedure: Upper EUS Proceduralist: Sourav Mac MD - [facility] Indications/Pre-Op Diagnosis: Abnormal abdominal MRI, Elevated liverenzymes Medications: General Anesthesia Procedure Description: Risk of bleeding, infection, perforation, pancreatitis, need for surgery, remote chance of and alternatives were discussed, andthe patient gave informed consent. The endoscope [id number] was introduced through the mouth, and advanced [...] ampulla. No masses were identified. There was a suggestion of two smooth strictures in the lower third of the main bile duct and in the upper third of the main bile duct. Both strictures revealed uniform, homogenous, circumferential thickeningof the bile duct wall measuring up to 4 mm in thickness. Fine needle aspiration of the bile duct was for cytology was performed. Color Doppler imaging was utilized prior to needle puncture to confirm alack of significant vascular structures within the needle path. Threepasses were made with the 25 gauge needle using a transduodenal approach. A excel specialist was present and performed a preliminary cytologic examination. Preliminary cytology is suggestive of benigninflammatory changes (final results are pending). Endosonographic imaging in the common bile duct showed no stones,sludge or mass. A small amount of hyperechoic material consistent with sludge was visualized endosonographically in the gallbladder. There was no sign of significant endosonographic abnormality in theleft lobe of the liver and in the right lobe of the liver. No focalpathology was identified. Pancreatic parenchymal abnormalities were noted in the entirepancreas. These consisted of diffuse echogenicity, hyperechoic foci andlobularity. The pancreatic duct had a dilated endosonographic appearance and hada mildly irregularly contoured endosonographic appearance in the entire pancreas. The pancreatic duct measured up to 4 mm in diameter in the head, 2 mm in the body, and 1 mm in the tail. Endosonographic imaging in the entire pancreas showed nocyst/pseudocyst or mass. The aortopulmonary region (level 5), subcarinal mediastinum (level 7) and celiac region (level 20) nodes were endosonographically normal.No pathologic lymphadenopathy was identified. Impressions/Post-Op Diagnosis: - Two smooth strictures in the lower third of the main bile duct andin the upper third of the main bile duct with marked, circumferential, uniform bile duct wall thickening. Images suggestive of aninflammatory process such as autoimmune cholangiopathy. Fine needle aspiration performed. - Hyperechoic material consistent with sludge was visualized endosonographically in the gallbladder. - There was no evidence of significant pathology in the left lobe ofthe liver and in the right lobe of the liver. - Pancreatic parenchymal abnormalities consisting of diffuse echogenicity, hyperechoic foci and lobularity were noted in theentire pancreas consistent with chronic pancreatitis. Recommendation: - Perform an ERCP. - Await cytology results. Sourav Mac MD 05/02/2025 10:45:19 AM This report has been signed electronically. Note Initiated On: 05/02/2025 9:04 AM us Sourav Mac MD PROCEDURE ORD Final Result * (ABNORMAL) GLUCOSE METER (05/02/2025 8:35 AM PACKING AND STAMPING MACHINE OPERATOR) GLUCOSE METER 137(H) 65 - 100 mg/dL 05/02/2025 8:36 AM PACKING AND STAMPING MACHINE OPERATOR [facility] Blood BLOOD SPECIMEN / Unknown 05/02/2025 8:35 AM PACKING AND STAMPING MACHINE OPERATOR 05/02/2025 8:36 AM PACKING AND STAMPING MACHINE OPERATOR us Sourav Mac MD CHEMISTRY Final Result [facility] [address] [place] [address], * SCAN CORRESP-LABORATORY RESULTS (04/30/2025 10:10 AM PACKING AND STAMPING MACHINE OPERATOR) Narrative 04/30/2025 10:10 AM PACKING AND STAMPING MACHINE OPERATOR Ordered by an unspecified provider. Other Clinical Staff OTHER Final Resul t from Last 3 Months Additional Health Concerns Infection Onset Date Last Indicated MRSA Clearance Comment:Infection Control Note: Hx of MRSA, surveillance criteria met, no need for further testing or isolation precautions. Do not delete or resolve the Infection Flag. +MRSA per pt in ~201705/01/2025 05/01/2025 Insurance [facility] MEDICARE PB ONLY MEDICARE PART B HB ONLY MEDICARE PART A HB ONLY WORKERS COMP Advance Directives * Full Code (Latest Code Status on File) Date Activated Date Inactivated Comments 05/02/2025 7:38 AM 05/02/2025 3:02 PM Question Answer Comments Code Status Discussion: Unable to Assess Preferences, Provider to review later * Full Code Date Activated Date Inactivated Comments 05/02/2025 7:38 AM 05/02/2025 7:38 AM Question Answer Comments Code Status Discussion: Unable to Assess Preferences, Provider to review later * Full Code Date Activated Date Inactivated Comments 10/10/2023 9:20 [...] Answer Comments Code Status Discussion: Reviewed Preferences Care Teams Customer Operations Associate Relationship Specialty Start Date End Date Emely Henson PA-C [id number] [address] PCP - General Emergency Medicine 04/20/23 Paul Soler MD [address] [place] [address] Pulmonology Pulmonary Medicine 09/30/22
--- NOTE | 2025-05-03 16:54 | CRLHL7_ITS ---
For Patients: As a result of the Century Cures Act, medical imaging exams and procedure reports are released immediately into your electronic medical record. You may view this report before your referring provider. If you have questions, please contact your health care provider. INDICATION: ERCP yesterday. Diffuse abdominal pain. COMPARISON: 04/17/2025 MRI of the abdomen TECHNIQUE: CT of the abdomen and pelvis with intravenous contrast (95 milliliters Isovue 370). FINDINGS: Lung bases: Please see separately dictated report for findings in the thorax. Liver: Smooth hepatic contour. No suspicious hepatic lesions are identified. Gallbladder and biliary tree: There is contrast within the gallbladder which is otherwise unremarkable appearing. There is similar mild multifocal intrahepatic biliary ductal dilation. There is trace presumably postprocedural pneumobilia mostly in the extrahepatic biliary tree. There is mild circumferential hyperenhancement and wall thickening of the extrahepatic biliary tree. There is extrahepatic biliary ductal dilation by up to 11 millimeters which has mildly increased since 04/17/2025. There is new circumferential edema surrounding the extrahepatic biliary tree and extending into the pancreaticoduodenal groove (2/47). Spleen: No splenomegaly. Pancreas: Normal. Adrenal glands: Normal. Kidneys and ureters: No hydroureteronephrosis. Several small bilateral renal cysts and subcentimeter hypoattenuating renal lesions which are too small to characterize, but statistically likely to represent cysts. Bladder: Unremarkable CT appearance. Visualized reproductive organs: Unremarkable CT appearance. Gastrointestinal tract: Colonic diverticulosis. No focal abnormally dilated loops of bowel. Normal appendix. Peritoneal cavity: No free fluid or free air. Indeterminate 2 centimeter soft tissue nodule or diverticulum located immediately anterior to the left transverse colon which is unchanged since 03/28/2025 (4/51). Lymph nodes: Borderline enlarged 1 centimeter portacaval lymph node (2/48) and borderline enlarged 1 centimeter lymph node anterior to the main portal vein (2/45). Vessels: No abdominal aortic aneurysm. There are severe atherosclerotic vascular calcifications. Multiple surgical clips in the left inguinal region likely relate to prior vascular procedure, although this is partially obscured due to streak artifact from left hip arthroplasty. Abdominal and pelvic wall: There is a heterogeneously hyperattenuating oval mass measuring 3.8 centimeters either at or immediately medial to the left inguinal canal which is similar since 03/28/2025, but indeterminate (2/125). Bones: There are osseous degenerative changes. There is diffuse osseous demineralization. There are postoperative changes from prior lumbar decompression and posterior instrumented fusion. There are postoperative changes from prior left total hip arthroplasty. Streak artifact from aforementioned orthopedic hardware limits evaluation of adjacent structures. There is heterotopic ossification associated with the left hip. One of the left-sided acetabular screws extends 1.7 centimeters into the left iliopsoas muscle. An approximately 13 millimeter abandoned screw fragment is again noted in the left iliopsoas muscle. There is diffuse idiopathic skeletal hyperostosis. IMPRESSION: 1. New circumferential edema surrounding the extrahepatic biliary tree within the pancreaticoduodenal groove. This CT appearance is nonspecific, but could represent postprocedural change and/or pancreatitis given reported history of recent ERCP. Recommend correlation with lipase. 2. Similar multifocal mild intrahepatic biliary ductal dilation. Extrahepatic biliary ductal dilation by up to 11 millimeters which has mildly increased since 04/17/2025. Mild circumferential hyperenhancement and wall thickening of the extrahepatic biliary tree most suspicious for either malignancy such as cholangiocarcinoma or cholangitis. Recommend correlation with ERCP results. New trace presumably postoperative pneumobilia. 3. Borderline enlarged lymph nodes in the right upper abdominal quadrant. 4. Indeterminate 3.8 centimeter heterogeneously hyperattenuating oval mass at or immediately medial to the left inguinal canal, unchanged since 03/28/2025. Recommend correlation with clinical history and ultrasound if not previously performed. 5. Indeterminate 2 centimeter soft tissue nodule or diverticulum immediately anterior to the left transverse colon, unchanged since 03/28/2025. Recommend attention on follow-up imaging. 6. Additional chronic and incidental findings as detailed above. Please note that all CT scans at this facility use dose modulation, iterative reconstruction, and/or weight-based dosing when appropriate to reduce radiation dose to as low as reasonably achievable. Dictated by Zeus Dunn MD @ 05/03/2025 6:18:26 PM (Electronically Signed)
--- NOTE | 2025-05-03 16:54 | CRLHL7_ITS ---
For Patients: As a result of the Century Cures Act, medical imaging exams and procedure reports are released immediately into your electronic medical record. You may view this report before your referring provider. If you have questions, please contact your health care provider. INDICATION: Pulmonary embolism suspected TECHNIQUE: CT chest with 95 mL Isovue 370 IV contrast using dedicated pulmonary angiography protocol. MIP reconstructions were created and reviewed. COMPARISON: CT chest: 04/21/2023 FINDINGS: Cardiovascular: No acute pulmonary embolism. Heart size is normal. Thoracic aorta and pulmonary artery are normal in caliber. Prosthetic aortic valve. Severe mitral calcifications. Moderate coronary calcifications. Lungs and pleura: Mild ground-glass opacity and tree-in-bud nodularity along the posterolateral right upper lobe. Additional cluster of tree-in-bud nodularity in the superior left lower lobe. Focus of subpleural consolidation in the posterior left upper lobe likely representing scarring at site of prior insult. No focal consolidation, pleural effusion, or pneumothorax. Lymph nodes/mediastinum: No enlarged lymph nodes by size criteria. Chest wall: No masses. Lower neck: Unremarkable. Upper abdomen: Please refer to concurrently performed CT abdomen pelvis. Bones: No aggressive osseous lesions. Severe degenerative changes of the spine and shoulders with findings of DISH. IMPRESSION: 1. No acute pulmonary embolism 2. Scattered clusters of bilateral tree-in-bud nodularity and faint ground-glass opacities which may represent an ongoing infectious or inflammatory process such as bronchiolitis/bronchopneumonia. Please note that all CT scans at this facility use dose modulation, iterative reconstruction, and/or weight-based dosing when appropriate to reduce radiation dose to as low as reasonably achievable. Dictated by Matt Davalos MD @ 05/03/2025 5:34:04 PM (Electronically Signed)
--- NOTE | 2025-05-03 17:17 | ED.GENADULT ---
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 Patient had an ERCP yesterday had tessa Grady for his elevated liver enzymes. He was doing well and went back home and lives with his son. Today the patient called his daughter and started complaining about having a fever and abdominal pain. He had a fever of 100.8 at home. Has not taken anything yet for his fever. When I speak to him he is able answer questions appropriately but is having difficulty time explaining why he is here. His daughter states the patient is much more confused than normal. It appears that he understands why he is here but cannot get it out. Is having pain to his upper abdominal region. Also an episode of emesis earlier today. Is mildly nauseated currently. He states he feels mildly short of breath. Denies any chest pain. Denies headache, vision changes, weakness, numbness. His daughter states he seems maybe slightly more off balance than normal for for but he typically does have some stability if she was going enlarging. She also thinks he looks slightly more yellow than normal. Will do next Related Data Home Medications ?Medication ?Instructions ?Recorded ?Confirmed acetaminophen 500 mg tablet 500 mg PO Q4H PRN 01/11/23 04/30/25 betamethasone dipropionate 0.05 % 1 applic topical BID PRN 04/29/25 04/30/25 topical cream Previous Rx's ?Medication ?Instructions ?Recorded glipizide 10 mg tablet, extended 10 mg PO DAILY #90 tabs 07/22/24 release 24 hr albuterol sulfate 90 mcg/actuation 1 - 2 inh inhalation Q6H PRN 10/17/24 aerosol inhaler shortness of breath or wheezing #8.5 grams mometasone-formoterol HFA 200 2 puff inhalation BID #13 grams 10/31/24 mcg-5 mcg/actuation aerosol inhaler (Dulera) warfarin 7.5 mg tablet 7.5 mg PO DAILY #90 tabs 11/19/24 metoprolol tartrate 25 mg tablet 12.5 mg (1/2 x 25 mg) PO BID #90 01/27/25 tabs amlodipine 10 mg tablet 10 mg PO DAILY #90 tabs 03/10/25 atorvastatin 40 mg tablet 40 mg PO HS #90 tabs 03/10/25 ferrous sulfate 324 mg (65 mg 324 mg PO DAILY #90 tabs 03/10/25 iron) tablet,delayed release gabapentin 600 mg tablet 600 mg PO QPM #90 tabs 03/10/25 losartan 100 mg tablet 100 mg PO DAILY #90 tabs 03/10/25 omeprazole 20 mg capsule,delayed 20 mg PO DAILY #90 caps 03/10/25 release tamsulosin 0.4 mg capsule 0.4 mg PO DAILY #90 caps 03/10/25 blood-glucose sensor (Dexcom G7 #12 ea 03/21/25 Sensor device) blood-glucose,metal ceiling hanger,cont #1 ea 03/21/25 (Dexcom G7 Industrial Maintenance Technician) insulin glargine 100 unit/mL (3 10 unit (0.1 mL) subcut QPM #15 mL 03/21/25 mL) subcutaneous pen (Lantus Solostar U-100 Insulin) lancing device (lancing device #1 ea 03/21/25 with lancets) pen needle, diabetic 32 gauge x #100 ea 03/21/25 escitalopram oxalate 5 mg tablet 5 mg PO QDAY #30 tabs 03/24/25 blood sugar diagnostic (Accu-Chek #100 ea 04/08/25 Guide test strips) metformin 1,000 mg tablet 1,000 mg PO BID #180 tabs 04/16/25 Allergies Allergy/AdvReac Type Severity Reaction Status Date / Time No Known Drug Allergies Allergy Verified 05/03/25 17:16 Review of Systems Status of ROS: Reports: 10 or more systems reviewed and unremarkable except as noted in History and below [facility] Medical History ?Z63.4 - Disappearance and of family member (ICD-10) Chronic anticoagulation ?Z79.01 - intermediate accountant (current) use of anticoagulants (ICD-10) Ascending aortic aneurysm (~09/2023) ?I71.21 - Aneurysm of the ascending aorta, without rupture (ICD-10) Vertigo ?R42 - Dizziness and giddiness (ICD-10) Psoriasis (~08/11/15) ?L40.9 - Psoriasis, unspecified (ICD-10) Pancreatic lesion (~05/23/23) ?K86.9 - Disease of pancreas, unspecified (ICD-10) PAD (peripheral artery disease) ?I73.9 - Peripheral vascular disease, unspecified (ICD-10) Hyperlipidemia ?E78.5 - Hyperlipidemia, unspecified (ICD-10) COPD (chronic obstructive pulmonary disease) ?J44.9 - Chronic obstructive pulmonary disease, unspecified (ICD-10) Chronic systolic (congestive) heart failure (~04/20/23) ?I50.22 - Chronic systolic (congestive) heart failure (ICD-10) PAOLO on CPAP ?G47.33 - Obstructive sleep apnea (adult) (pediatric) (ICD-10) Paroxysmal atrial fibrillation ?I48.0 - Paroxysmal atrial fibrillation (ICD-10) SVT (supraventricular tachycardia) ?I47.10 - Supraventricular tachycardia, unspecified (ICD-10) Severe aortic stenosis (04/20/23) ?I35.0 - Nonrheumatic aortic (valve) stenosis (ICD-10) Left bundle branch block (~06/2023) ?I44.7 - Left bundle-branch block, unspecified (ICD-10) Diabetes mellitus ?E11.9 - Type 2 diabetes mellitus without complications (ICD-10) Low TSH level ?R79.89 - Other specified abnormal findings of blood chemistry (ICD-10) Pulmonary nodule ?R91.1 - Solitary pulmonary nodule (ICD-10) Osteoarthritis of left hip ?M16.12 - Unilateral primary osteoarthritis, left hip (ICD-10) Former smoker ?Z87.891 - Personal history of nicotine dependence (ICD-10) Renal lesion (~08/2023) ?N28.9 - Disorder of kidney and ureter, unspecified (ICD-10) Pulmonary lesion ?J98.4 - Other disorders of lung (ICD-10) Bicuspid aortic valve (~03/24/20) ?Q23.1 - Congenital insufficiency of aortic valve (ICD-10) Atherosclerotic heart disease of [place] coronary artery without angina pectoris (~04/20/23) ?I25.10 - Atherosclerotic heart disease of [place] coronary artery without angina pectoris (ICD-10) Normal coronary angiogram Rotator cuff tear ?M75.100 - Unspecified rotator cuff tear or rupture of unspecified shoulder, not specified as traumatic (ICD-10) Liver cyst ?K76.89 - Other specified diseases of liver (ICD-10) Rupture of left long head biceps tendon ?S46.112A - Strain of muscle, fascia and tendon of long head of biceps, left arm, initial encounter (ICD-10) Partial tear of subscapularis tendon ?S46.819A - Strain of other muscles, fascia and tendons at shoulder and upper arm level, unspecified arm, initial encounter (ICD-10) Unspecified rotator cuff tear or rupture of left shoulder, not specified as traumatic ?M75.102 - Unspecified rotator cuff tear or rupture of left shoulder, not specified as traumatic (ICD-10) Stenosis of cervical spine ?M48.02 - Spinal stenosis, cervical region (ICD-10) Surgical History History of left hip replacement (~08/2024) ?Z96.642 - Presence of left artificial hip joint (ICD-10) History of total right knee replacement (06/18/24) ?Z96.651 - Presence of right artificial knee joint (ICD-10) History of ankle surgery (~06/2022) ?Z98.890 - Other specified postprocedural states (ICD-10) Status post transcatheter aortic valve replacement (~06/29/23) ?Z95.2 - Presence of prosthetic heart valve (ICD-10) History of surgery on right wrist (12/08/18) ?Z98.890 - Other specified postprocedural states (ICD-10) S/P hardware removal (10/20/22) ?Z98.890 - Other specified postprocedural states (ICD-10) Hx of nasal septoplasty (04/23/09) ?Z98.890 - Other specified postprocedural states (ICD-10) S/P lumbar fusion ?Z98.1 - Arthrodesis status (ICD-10) History of cardiac radiofrequency ablation ?Z98.890 - Other specified postprocedural states (ICD-10) History of cervical discectomy ?Z98.890 - Other specified postprocedural states (ICD-10) Status post arthroscopy of right shoulder (04/22/08) ?Z98.890 - Other specified postprocedural states (ICD-10) Status post arthroscopy of left shoulder (02/19/10) ?Z98.890 - Other specified postprocedural states (ICD-10) S/P trigger finger release (11/29/18) ?Z98.890 - Other specified postprocedural states (ICD-10) History of carpal tunnel surgery of right wrist (11/29/18) ?Z98.890 - Other specified postprocedural states (ICD-10) Family History Brother Diabetes Social History Narrative: . from [facility]. Youngest son lives with him and oldest son lives just down the street. Daughter is one of our charge nurses. 3 adult kids. 2 grandkids. 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 One of his adult sons lives with him. Former smoker- Quit 35 years ago. Denies recreational drugs Alcohol -rare use (less than one drink per week) What is your current living situation?: I presently have a place to live Problems where you live: declined to answer Problems where you live details: NA In the past 12 months, utilities in danger of being shut off: no In past 12 months, lack of transportation kept you from medical appts, meetings, work, or getting things needed for daily living: no In the past 12 mos, have been you worried that your food would run out before you had money to buy more?: never true In the past 12 mos, the food you bought just didn't last and you didn't have money to buy more?: never true Smoking Status: Never smoker Second hand tobacco smoke exposure: No How often do you have a drink containing alcohol: monthly or less How often do you have six or more drinks on one occasion: Never AUDIT-C Alcohol total score: 1 Non-prescribed substance use: denies use Caffeine: Yes How often does anyone, including family, friends and others, physically hurt you: never How often does anyone, including family, friends and others, insult or talk down to you: never How often does anyone, including family, friends and others, threaten you with harm: never How often does anyone, including family, friends and others, scream or curse at you: never Exam Narrative: Exam Narrative: Const: Well-nourished, Well-developed, in mild distress Eyes: PERRL, mild scleral icterus bilaterally, and symmetrical lids HENT: Atraumatic external nose and ears. Moist mucous membranes. Neck: Symmetric, trachea midline, No thyromegaly. CVS: RRR, No murmurs or gallops. Peripheral pulses 2+ and equal in all extremities RESP: Unlabored respiratory effort. Clear to auscultation bilaterally. GI: Diffuse abdominal tenderness worse in the upper abdominal region. Nondistended, No rebound or guarding. MSK:Extremities w/o deformity, Normal Active ROM, no chest tenderness, protruding xiphoid process which is chronic, Skin: Warm, Dry. No rashes or lesions. Neuro: Normal Muscle tone, No focal neurological deficits. Psych: Awake, Alert, & Oriented x3. Appropriate mood and affect. Const: Vital Signs, click to edit/add: Vital Signs - 24 hr 05/03/25 16:34 05/03/25 17:43 05/03/25 17:45 Temperature 102.3 F H Pulse Rate 86 97 Pulse Rate [Left P ulse Oximeter] 75 Respiratory Rate 18 Blood Pressure Blood Pressure [Ri ght Upper Arm] 170/71 H Pulse Oximetry 97 95 92 Oxygen Delivery Me thod Room Air 05/03/25 17:49 05/03/25 17:50 05/03/25 18:00 Temperature Pulse Rate 89 90 97 Pulse Rate [Left P ulse Oximeter] Respiratory Rate Blood Pressure 157/70 H Blood Pressure [Ri ght Upper Arm] Pulse Oximetry 95 94 89 Oxygen Delivery Me thod 05/03/25 18:02 05/03/25 18:20 05/03/25 18:21 Temperature Pulse Rate 90 82 86 Pulse Rate [Left P ulse Oximeter] Respiratory Rate Blood Pressure 151/73 H 142/80 H Blood Pressure [Ri ght Upper Arm] Pulse Oximetry 93 93 94 Oxygen Delivery Me thod 05/03/25 18:30 05/03/25 19:05 05/03/25 20:15 Temperature 99.8 F H Pulse Rate 99 Pulse Rate [Left P ulse Oximeter] 99 Respiratory Rate 18 Blood Pressure Blood Pressure [Ri t Upper Arm] 95/64 Pulse Oximetry 91 94 Oxygen Delivery Me thod Room Air Course Vital Signs Vital signs: Initial Vital Signs Temperature 102.3 F H 05/03/25 16:34 Temperature Source Temporal Artery Scan 05/03/25 16:34 Pulse Rate 75 05/03/25 16:34 Respiratory Rate 18 05/03/25 16:34 Blood Pressure 170/71 H 05/03/25 16:34 Blood Pressure Mean 104 05/03/25 16:34 Blood Pressure Position Sitting 05/03/25 16:34 Pulse Oximetry 97 05/03/25 16:34 Oxygen Delivery Method Room Air 05/03/25 16:34 Vital Signs Temperature 102.3 F H 05/03/25 16:34 Pulse Rate 75 05/03/25 16:34 Respiratory Rate 18 05/03/25 16:34 Blood Pressure 170/71 H 05/03/25 16:34 Pulse Oximetry 97 05/03/25 16:34 Oxygen Delivery Method Room Air 05/03/25 16:34 Temperature 99.8 F H 05/03/25 19:05 Pulse Rate 99 05/03/25 20:15 Respiratory Rate 18 05/03/25 20:15 Blood Pressure 95/64 05/03/25 20:15 Pulse Oximetry 94 05/03/25 20:15 Oxygen Delivery Method Room Air 05/03/25 20:15 Medications Administered Medications: Generic Name Dose Route Start Last Admin Trade Name Freq PRN Reason Stop Dose Admin Sodium Chloride 1,000 mls @ 1,000 mls/hr 05/03/25 19:30 05/03/25 19:48 0.9 % Sodium Chloride 1000 Ml IV 05/03/25 20:29 1,000 mls/hr .Q1H DENNIS Administration Discontinued Medications Generic Name Dose Route Start Last Admin Trade Name Freq PRN Reason Stop Dose Admin Acetaminophen 650 mg 05/03/25 17:15 05/03/25 17:25 Acetaminophen 325 Mg Tablet PO 05/03/25 17:16 650 mg ONCE ONE Administration Piperacillin Sod/Tazobactam 100 mls @ 200 mls/hr 05/03/25 19:13 05/03/25 19:46 Sod 3.375 gm/ Sodium Chloride IVPB 05/03/25 19:14 200 mls/hr ONCE ONE Administration Ondansetron HCl 4 mg 05/03/25 17:20 05/03/25 17:32 Ondansetron 2 Mg/Ml Inj IVP 05/03/25 17:21 4 mg ONCE ONE Administration Medical Decision Making MDM Narrative Medical decision making narrative: Patient is a 70-year-old male presenting to the emergency department for a fevers and abdominal pain. Patient has a fever 102.3. Tylenol given for the fever. Differential shows time does include intra-abdominal infection, viral infection, cholangitis. With the ERCP was also concerned that there is a perforation. Will do a CT scan with IV contrast of the abdomen for better evaluation. He is also having some right mild shortness of breath and with his extensive medical history of will order a CTA chest to make sure there is not a PE. This also helped look for the signs pneumonia. EKG and troponin order to look for signs of rate that cardiac abnormalities. The coughing so much CBC, CMP, viral swabs, lipase, magnesium you already ordered. Zofran given for nausea. Patient has slightly elevated white blood cell count at 12.12. He now meets SIRS criteria. Lactate and blood cultures ordered. Rest of his CBC shows no concerning abnormalities. INR within normal limits. CMP shows slightly low sodium at 130 he sometimes is in this range is not too abnormal for him. Magnesium slightly low at 1.3. More concerning or his liver function test. His AST, ALT and alk phos all appear roughly at baseline but told bilirubin has gone from 1.7 4 days ago to 6.6 today. There is concerned he has developed cholangitis after his ERCP. CTA scan of his chest interpreted by myself and the radiologist shows no signs of PE but there is possibly a pneumonia. This could go with his shortness of breath but unclear fee definitively has pneumonia. CT scan of his abdomen and pelvis interpreted by myself and the radiologist independently show new circumferential edema surrounding the extrahepatic biliary tree within the pancreatic duodenal groove. This is nonspecific but could represent postprocedure change or pancreatitis. Considering his normal lipase this does not appear to be pancreatitis. There is also similar multifocal biliary duct dilation seen on previous imaging but of concerned there is mild circumferential hyperenhancement and wall thickening of the extrahepatic biliary tree most suspicious for either malignancy or cholangiocarcinoma. There is some postoperative pneumobilia. Rest of CT appears to show chronic findings. Patient started on Zosyn. Was given 1 L fluids but was not given the full 30 mL/kilogram as he is otherwise eagle stable. And he is satting well on room air. His heart rate has been between 80s and 90s. EKG interpreted by myself independently shows a normal sinus rhythm with an elongated [place] interval and left bundle-branch block. Does appear similar previous EKGs on file.. He is subtherapeutic for his INR. I did speak to the on-call general surgeon, Dr. Denise, she recommends transfer back to [place] for possible repeat your CP. I spoke to the on-call hospitalist for [place], Dr. Aden, accepted the patient for transfer. Patient and his family are agreeable to this plan. They daughter does state his symptoms seem to be slightly improving and he does not appear as confused. Of note after patient was accepted for transfer his blood pressure did drop to 95/64. His pulse is still under 100. At this point he has not received the entire 1 L. He did get a L of fluids or ready and then 100 mL from his antibiotic. Per sepsis protocol will give another 1000 mL to reach 30 milliliters/kilogram. I did speak to his daughter and they are aware of the inguinal canal mass. They were unaware of the 2 cm soft tissue nodule or diverticulum just anterior to the transverse colon. This is unchanged. I spoke to the on-call general surgeon SIRS criteria: White blood cell count, temperature Blood cultures ordered: Yes Lactate: 2.0 Antibiotics Given: Zosyn 30 milliliters/kilogram of Fluids Given: Yes Sepsis Source: Cholangitis Severe Sepsis/Septic Shock: yes Pressors Given: No Sepsis Reassessment: Heart: RRR, no murmurs Lungs: Normal work fo breathing, clear to auscultation bilaterally Pulses: +2 in all 4 extremities Capillary refill: Brisk, less than 2 seconds Skin: Not mottled Diagnosis: Severe sepsis secondary to cholangitis Lab Data Labs: Lab Results 05/03/25 05/03/25 05/03/25 Range/Units 17:35 17:48 18:35 WBC 12.12 H (4.50-11.00) K/uL RBC 4.02 L (4.30-5.90) m/uL Hgb 11.1 L (13.5-17.5) gm/dL Hct 33.9 L (37.0-53.0) % MCV 84 (80-100) fL MCH 28 (26-34) pg MCHC 33 (32-36) gm/dL RDW Coeff of Heladio 14.9 (11.5-15.5) % Plt Count 278 (140-440) K/uL Neut % (Auto) 89.4 H (42.0-72.0) % Lymph % (Auto) 2.1 L (20-44) % Ponce % (Auto) 7.8 (0.0-11.0) % Eos % (Auto) 0.3 (0.0-7.0) % Baso % (Auto) 0.2 (0.0-3.0) % Neut # (Auto) 10.80 H (1.7-7.0) K/uL Lymph # (Auto) 0.30 L (0.90-2.90) K/uL Ponce # (Auto) 0.90 (0.00-0.90) K/UL Eos # (Auto) 0.00 (0.00-0.50) K/uL Baso # (Auto) 0.00 (0.00-0.30) K/uL Abs Immat Gran (auto) 0.00 (0.00-0.30) K/uL Imm/Tot Granulo (auto) 0.2 % INR 0.95 (0.91-1.10) Sodium 130 L (135-149) mmol/L Potassium 4.3 (3.6-5.1) mmol/L Chloride 92 L (96-114) mmol/L Carbon Dioxide 26 (20-32) mmol/L Anion Gap 12 (7-15) mEq/L BUN 21 (7-30) mg/dL Creatinine 0.8 (0.5-1.5) mg/dL Estimated Creat Clear 64.26 Estimated GFR 95 ml/min Glucose 232 H (60-115) mg/dL Lactate (0.5-1.9) mmol/L Calcium 9.1 (8.4-10.6) mg/dL Magnesium 1.3 L (1.5-2.6) mg/dL Total Bilirubin 6.6 H (0.1-1.5) mg/dL Direct Bilirubin 5.4 H (0.0-0.5) mg/dL AST 218 H (12-35) U/L ALT 229 H (4-50) U/L Alkaline Phosphatase 910 H (40-150) U/L Troponin I < 0.01 (0.01-0.04) ng/mL Total Protein 8.4 H (6.0-8.3) g/dL Albumin 3.9 (3.3-5.0) g/dL Lipase 280 (23-300) U/L Urine Color [place] A (Yellow) Urine Appearance Clear (Clear) Urine pH 7.0 (5.0-8.5) Ur Specific [place] 1.015 (1.000-1.030) Urine Protein 1+ A (Negative) Urine Glucose (UA) Trace A (Negative) Urine Ketones Negative (Negative) Urine Blood Negative (Negative) Urine Nitrite Negative (Negative) Urine Bilirubin 2+ A (Negative) Urine Urobilinogen 4.0 A (0.2-1.0) Ur Leukocyte Esterase Negative (Negative) Urine RBC 0-2 (0-2) Urine WBC 0-2 (0-5) Ur Squamous Epith Cells Few (None-Few) Urine Bacteria Few A (None) SARS-CoV-2 (PCR) Negative SARS-CoV-2 (Negative) Influenza Type A (PCR) Negative PCR FLU A (Negative) Influenza Type B (PCR) Negative PCR FLU B (Negative) RSV (PCR) Negative PCR RSV (Negative) Lab Acknowledgement Test Added 05/03/25 05/03/25 Range/Units 18:37 18:44 WBC (4.50-11.00) K/uL RBC (4.30-5.90) m/uL Hgb (13.5-17.5) gm/dL Hct (37.0-53.0) % MCV (80-100) fL MCH (26-34) pg MCHC (32-36) gm/dL RDW Coeff of Heladio (11.5-15.5) % Plt Count (140-440) K/uL Neut % (Auto) (42.0-72.0) % Lymph % (Auto) (20-44) % Ponce % (Auto) (0.0-11.0) % Eos % (Auto) (0.0-7.0) % Baso % (Auto) (0.0-3.0) % Neut # (Auto) (1.7-7.0) K/uL Lymph # (Auto) (0.90-2.90) K/uL Ponce # (Auto) (0.00-0.90) K/UL Eos # (Auto) (0.00-0.50) K/uL Baso # (Auto) (0.00-0.30) K/uL Abs Immat Gran (auto) (0.00-0.30) K/uL Imm/Tot Granulo (auto) % INR (0.91-1.10) Sodium (135-149) mmol/L Potassium (3.6-5.1) mmol/L Chloride (96-114) mmol/L Carbon Dioxide (20-32) mmol/L Anion Gap (7-15) mEq/L BUN (7-30) mg/dL Creatinine (0.5-1.5) mg/dL Estimated Creat Clear Estimated GFR ml/min Glucose (60-115) mg/dL Lactate 2.0 H (0.5-1.9) mmol/L Calcium (8.4-10.6) mg/dL Magnesium (1.5-2.6) mg/dL Total Bilirubin (0.1-1.5) mg/dL Direct Bilirubin (0.0-0.5) mg/dL AST (12-35) U/L ALT (4-50) U/L Alkaline Phosphatase (40-150) U/L Troponin I (0.01-0.04) ng/mL Total Protein (6.0-8.3) g/dL Albumin (3.3-5.0) g/dL Lipase (23-300) U/L Urine Color (Yellow) Urine Appearance (Clear) Urine pH (5.0-8.5) Ur Specific [place] (1.000-1.030) Urine Protein (Negative) Urine Glucose (UA) (Negative) Urine Ketones (Negative) Urine Blood (Negative) Urine Nitrite (Negative) Urine Bilirubin (Negative) Urine Urobilinogen (0.2-1.0) Ur Leukocyte Esterase (Negative) Urine RBC (0-2) Urine WBC (0-5) Ur Squamous Epith Cells (None-Few) Urine Bacteria (None) SARS-CoV-2 (PCR) (Negative) Influenza Type A (PCR) (Negative) Influenza Type B (PCR) (Negative) RSV (PCR) (Negative) Lab Acknowledgement Test Added Imaging Data CTA chest: Attestation: I have reviewed the pertinent imaging results. Radiologist's impression: 1. No acute pulmonary embolism 2. Scattered clusters of bilateral tree-in-bud nodularity and faint ground-glass opacities which may represent an ongoing infectious or inflammatory process such as bronchiolitis/bronchopneumonia. Please note that all CT scans at this facility use dose modulation, iterative reconstruction, and/or weight-based dosing when appropriate to reduce radiation dose to as low as reasonably achievable. Dictated by Matt Davalos MD @ 05/03/2025 5:34:[address] scan abdomen and pelvis: Radiologist's impression: 1. New circumferential edema surrounding the extrahepatic biliary tree within the pancreaticoduodenal groove. This CT appearance is nonspecific, but could represent postprocedural change and/or pancreatitis given reported history of recent ERCP. Recommend correlation with lipase. 2. Similar multifocal mild intrahepatic biliary ductal dilation. Extrahepatic biliary ductal dilation by up to 11 millimeters which has mildly increased since 04/17/2025. Mild circumferential hyperenhancement and wall thickening of the extrahepatic biliary tree most suspicious for either malignancy such as cholangiocarcinoma or cholangitis. Recommend correlation with ERCP results. New trace presumably postoperative pneumobilia. 3. Borderline enlarged lymph nodes in the right upper abdominal quadrant. 4. Indeterminate 3.8 centimeter heterogeneously hyperattenuating oval mass at or immediately medial to the left inguinal canal, unchanged since 03/28/2025. Recommend correlation with clinical history and ultrasound if not previously performed. 5. Indeterminate 2 centimeter soft tissue nodule or diverticulum immediately anterior to the left transverse colon, unchanged since 03/28/2025. Recommend attention on follow-up imaging. 6. Additional chronic and incidental findings as detailed above. Please note that all CT scans at this facility use dose modulation, iterative reconstruction, and/or weight-based dosing when appropriate to reduce radiation dose to as low as reasonably achievable. Dictated by Zeus Dunn MD @ 05/03/2025 6:18:26 PM ECG Data Attestation: I personally reviewed and interpreted this ECG as follows: Prior ECG tracings: available for review Interpretation: Normal sinus rhythm with a rate of 93 beats per minute, prolonged [place] interval, normal QRS, normal QT, no ST or T-wave abnormalities. Appears similar previous EKG on file Critical Care Time Critical Care Time Critical Care Time: Yes Attestation: The patient required my highest level preparedness to intervene emergently and I personally spent this critical care time directly and personally managing the patient. This critical care time included: Obtaining a history; Examining the patient; Pulse oximetry; Ordering and reviewing of studies; Arranging urgent treatment with development of a management plan; Evaluation of patients response to treatment; Frequent reassessment discussions with other providers. This critical care time was performed to assess and manage the high probability of imminent life-threatening deterioration that could result in multiorgan failure. It was exclusive of separate billable procedures and treating other patients and teaching time. Total Critical Care Time in Minutes: 47 Discharge Plan Discharge Clinical Impression: Acute cholangitis Sepsis Qualifiers: Sepsis type: sepsis due to unspecified organism Sepsis acute organ dysfunction status: without acute organ dysfunction Qualified Code(s): A41.9 - Sepsis, unspecified organism Patient Disposition: [facility] Condition: Guarded Additional Instructions: Of note CT scan also showed an indeterminate 2 cm soft tissue nodule or diverticulum next to the left portion of the transverse colon. This is unchanged since 03/28/2025. Recommend following up about this. Prescriptions: No Action acetaminophen 500 mg tablet 500 mg PO Q4H PRN albuterol sulfate 90 mcg/actuation HFA aerosol inhaler 1 - 2 inh INHALATION Q6H PRN (Reason: shortness of breath or wheezing) Qty: 8.5 0RF Rx Instructions: as needed glipizide 10 mg tablet extended release 24hr 10 mg PO DAILY Qty: 90 3RF Dulera 200-5 mcg/actuation HFA aerosol inhaler 2 puff inhalation BID Qty: 13 1RF Rx Instructions: 2 puffs twice daily Rinse mouth afterward insulin glargine [Lantus Solostar U-100 Insulin] 100 unit/mL (3 mL) insulin pen 10 unit subcut QPM Qty: 15 0RF Rx Instructions: 10 units once nightly for diabetes (DME) pen needle, diabetic 32 gauge x /32 needle See Rx Instructions miscellaneous .MEDSUPPLY Qty: 100 3RF Rx Instructions: As directed (DME) lancing device [lancing device with lancets] Misc See Rx Instructions .MEDSUPPLY Qty: 1 3RF Rx Instructions: As directed- twice daily for diabetes escitalopram oxalate 5 mg tablet 5 mg PO QDAY Qty: 30 1RF Rx Instructions: once daily for mood support warfarin 7.5 mg tablet 7.5 mg PO DAILY Qty: 90 3RF Protocol: Dose Management Condition: Monday Dose/Route: 7.5 mg Instruction: 1 x 7.5 mg tablet Condition: Monday Dose/Route: 3.75 mg Instruction: 0.5 x 7.5 mg tablets Condition: Monday Dose/Route: 7.5 mg Instruction: 1 x 7.5 mg tablet Condition: Monday Dose/Route: 3.75 mg Instruction: 0.5 x 7.5 mg tablets Condition: Dose/Route: 7.5 mg Instruction: 1 x 7.5 mg tablet Condition: Monday Dose/Route: 7.5 mg Instruction: 1 x 7.5 mg tablet Condition: Monday Dose/Route: 7.5 mg Instruction: 1 x 7.5 mg tablet Protocol Text: Adjustment Start Date: Monday04/25/25 INR Value: 2.0 INR Date: 04/25/25 Recheck Date: 05/09/25 metoprolol tartrate 25 mg tablet 12.5 mg PO BID Qty: 90 1RF Rx Instructions: 1/2 tablet twice daily tamsulosin 0.4 mg capsule 0.4 mg PO DAILY Qty: 90 0RF gabapentin 600 mg tablet 600 mg PO QPM Qty: 90 0RF Rx Instructions: Take 1 tablet nightly atorvastatin 40 mg tablet 40 mg PO HS Qty: 90 0RF Rx Instructions: once daily for cholesterol amlodipine 10 mg tablet 10 mg PO DAILY Qty: 90 0RF Patient Comments: TAKE ONE TABLET BY MOUTH DAILY losartan 100 mg tablet 100 mg PO DAILY Qty: 90 0RF Patient Comments: TAKE ONE TABLET BY MOUTH DAILY ferrous sulfate 324 mg (65 mg iron) tablet,delayed release (DR/EC) 324 mg PO DAILY Qty: 90 3RF omeprazole 20 mg capsule,delayed release(DR/EC) 20 mg PO DAILY Qty: 90 3RF Rx Instructions: for stomach protection (DME) Dexcom G7 Sensor Device See Rx Instructions .MEDSUPPLY Qty: 12 0RF Rx Instructions: change every 10 days (DME) Dexcom G7 [employer]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
[2025-05-03] MEDS: ACETAMINOPHEN 325 MG TABLET 650 MG PO (17:25)
[2025-05-03] MEDS: ONDANSETRON 2 MG/ML inj 4 MG IVP (17:32)
[2025-05-03 17:54] LABS: Hematocrit* 33.9 % (37.0-53.0); Hemoglobin* 11.1 gm/dL (13.5-17.5); Immature Granulocytes Pct Auto 0.2 %; Mean Corpuscular HGB Conc 33 gm/dL (32-36); Mean Corpuscular Hemoglobin 28 pg (26-34); Mean Corpuscular Volume 84 fL (80-100); RDW Coefficient of Variation % 14.9 % (11.5-15.5); Red Blood Count* 4.02 m/uL (4.30-5.90); White Blood Count* 12.12 K/uL (4.50-11.00)
[2025-05-03 18:02] LABS: Immature Granulocytes Abs Auto 0.00 K/uL (0.00-0.30); Lymphocytes Absolute Auto 0.30 K/uL (0.90-2.90); Slide Review Reflex No
[2025-05-03 18:23] LABS: Albumin* 3.9 g/dL (3.3-5.0); Chloride* 92 mmol/L (96-114); Potassium* 4.3 mmol/L (3.6-5.1); Sodium* 130 mmol/L (135-149)
[2025-05-03 18:24] LABS: PCR FLU A Negative PCR FLU A (Negative); PCR FLU B Negative PCR FLU B (Negative); PCR RSV Negative PCR RSV (Negative); SARS PCR* Negative SARS-CoV-2 (Negative)
[2025-05-03 18:25] LABS: Blood Urea Nitrogen* 21 mg/dL (7-30); Creatinine* 0.8 mg/dL (0.5-1.5); Est. Creatinine Clearance* 64.26; Estimated Glomerular Filt Rate 95 ml/min
[2025-05-03 18:26] LABS: Alanine Aminotransferase* 229 U/L (4-50); Alkaline Phosphatase* 910 U/L (40-150); Anion Gap 12 mEq/L (7-15); Aspartate Amino Transferase* 218 U/L (12-35); Bilirubin Total* 6.6 mg/dL (0.1-1.5); Calcium* 9.1 mg/dL (8.4-10.6); Carbon Dioxide* 26 mmol/L (20-32); Glucose* 232 mg/dL (60-115); Total Protein* 8.4 g/dL (6.0-8.3)
[2025-05-03 18:44] LABS: Appearance Urine Clear (Clear)
[2025-05-03 18:51] LABS: Lactate Sepsis w/Reflex* 2.0 mmol/L (0.5-1.9)
[2025-05-03 18:58] LABS: Bilirubin Direct* 5.4 mg/dL (0.0-0.5)
[2025-05-03 19:06] LABS: INR 0.95 (0.91-1.10); Prothrombin Time 13.5 Seconds
[2025-05-03] MEDS: PIPERACILLIN/TAZOBACTAM 3.375 GM in 0.9 % SODIUM CHLORIDE Mini-bag 100 ML IVPB (19:46)
[2025-05-03 20:55] LABS: Lactate Sepsis 2 Hour 1.5 mmol/L (0.5-1.9)
== END 2025-05-03 21:11 | disposition short-term general hospital (02) ==
PROVIDERS: Emergency Provider Student in an Organized Health Care Education/Training Program; PCP Physician Assistant Medical
DX: A41.9 Sepsis, unspecified organism (principal); K83.09 Other cholangitis; R65.20 Severe sepsis without septic shock; R06.02 Shortness of breath; R05.9 Cough, unspecified; R93.5 Abnormal findings on diagnostic imaging of other abdominal regions, including retroperitoneum; I44.60 Unspecified fascicular block; R79.1 Abnormal coagulation profile; Z79.01 Long term (current) use of anticoagulants
CPT/HCPCS: 36415; 71275; 74177; 80053; 81001; 82248; 83605; 83690; 83735; 84484; 85025; 85610; 87040; 87086; 87631; 93005; 99285; 99291; A9270; J2405; J2543; J7030; Q9967

== ENCOUNTER 2025-05-03 20:59 | Outpatient (CLI) | payer MEDICARE, BC, SELFPAY | END 2025-05-03 21:00 | disposition home or self-care (01) | LOC: AMB 05-05 18:50 | PROVIDERS: PCP Physician Assistant Medical; Visit Provider Family Medicine | DX: K83.09 Other cholangitis (principal); A41.9 Sepsis, unspecified organism | CPT/HCPCS: A0425; A0427 ==

== ENCOUNTER 2025-05-12 14:46 | Outpatient (CLI) | payer MEDICARE, BC, SELFPAY ==
--- NOTE | 2025-05-12 15:00 | CRLHL7_ITS ---
For Patients: As a result of the Century Cures Act, medical imaging exams and procedure reports are released immediately into your electronic medical record. You may view this report before your referring provider. If you have questions, please contact your health care provider. Indication: Left inguinal mass Technique: Grayscale and color Doppler ultrasound of the left inguinal soft tissues performed. Comparison: CT 05/03/2025 Findings: There is a solid heterogeneous primarily hypoechoic circumscribed mass within the left inguinal soft tissues which measures 7.0 x 1.4 x 4.0 cm. Minimal internal vascularity is present. Impression: Indeterminate 7.0 x 1.4 x 4.0 cm mass in the left inguinal soft tissues. Biopsy could be considered. Dictated by Paul Simons MD @ 05/12/2025 3:57:14 PM (Electronically Signed)
== END 2025-05-12 14:47 | disposition home or self-care (01) ==
LOC: US 14:47
PROVIDERS: PCP Physician Assistant Medical; Visit Provider Surgery
DX: R19.09 Other intra-abdominal and pelvic swelling, mass and lump (principal); K40.90 Unilateral inguinal hernia, without obstruction or gangrene, not specified as recurrent
CPT/HCPCS: 76882; 80076; 83690

== ENCOUNTER 2025-05-21 10:56 | Outpatient (CLI) | payer MEDICARE, BC, SELFPAY ==
--- NOTE | 2025-05-21 11:15 | CRLHL7_ITS ---
For Patients: As a result of the Century Cures Act, medical imaging exams and procedure reports are released immediately into your electronic medical record. You may view this report before your referring provider. If you have questions, please contact your health care provider. ULTRASOUND-GUIDED LEFT INGUINAL SOFT TISSUE MASS BIOPSY CLINICAL HISTORY: Indeterminate solid mass in the left inguinal canal COMPARISON STUDIES: CT 05/03/2025 TECHNIQUE: Real-time ultrasound with image documentation was used for targeting the left inguinal lesion. Core biopsy specimens were obtained using an automated gun with an 18-gauge biopsy needle. CONSENT and TIME OUT: The procedure, risks, and alternatives were explained to the patient and a consent was signed. [place] Protocol was followed including pre-procedure verification that relevant information/documentation was available, reviewed and properly matched to the patient; consent accurate and complete; and equipment and supplies available. Time Out was conducted just prior to starting procedure to verify the four required elements: patient identity, correct side/site marked (if applicable), procedure, relevant images/results properly labeled and displayed (if applicable). PROCEDURE: The patient was positioned supine on the ultrasound table. The left inguinal skin was prepped with ChloraPrep. 8 cc of 1 percent lidocaine used for local anesthesia. Core samples were obtained. The specimens were placed in 10% formalin and sent to the pathology department. Pressure was held on the biopsy site until all bleeding subsided. The skin incision was closed with Steri-Strips. An ice pack was positioned over the biopsy site. Post-biopsy instructions were reviewed with the patient, and a written copy was given to him. LATERALITY: Left inguinal canal LESION: Solid circumscribed hypoechoic mass measuring 3.8 cm. SUSPICION FOR MALIGNANCY: Indeterminate NUMBER OF SAMPLES: 5 IMPRESSION: Ultrasound-guided left inguinal solid mass biopsy. Dictated by Paul Simons MD @ 05/21/2025 1:15:03 PM (Electronically Signed)
== END 2025-05-21 10:57 | disposition home or self-care (01) ==
LOC: US 10:57
PROVIDERS: PCP Physician Assistant Medical; Visit Provider Surgery
DX: M79.89 Other specified soft tissue disorders (principal)
CPT/HCPCS: 20206; 76942